=== PATIENT | female | born 1940 | race Caucasian/White ===

== ENCOUNTER 2019-03-20 12:46 | Emergency (ER) | payer MEDICARE, OTHER ==
[~2019-03-20] VITALS: Ht 162.5 cm; Wt 95.9 kg
[2019-03-20] MEDS ORDERED: DILT300C26 PO (13:15)
[2019-03-20] MEDS ORDERED: IRBE300T18 PO (13:15)
[2019-03-20] MEDS ORDERED: ERGO50006 PO (13:15)
[2019-03-20] MEDS ORDERED: CLON0.5T13 PO (13:15)
[2019-03-20] MEDS ORDERED: CLOP75TA28 PO (13:15)
[2019-03-20] MEDS ORDERED: ATOR80TA76 PO (13:15)
[2019-03-20] MEDS ORDERED: ALLO100T PO (13:15)
[2019-03-20] MEDS ORDERED: CALC0.253 PO (13:15)
[2019-03-20] MEDS ORDERED: FURO40TA4 PO (13:15)
[2019-03-20] MEDS ORDERED: NFNEB10T PO (13:15)
[2019-03-20] MEDS ORDERED: LORA10TA7 PO (13:15)
--- NOTE | 2019-03-20 13:18 | ED Cough/URI ---
General Chief Complaint: Respiratory Problems Stated Complaint: LOW O2 Source: patient Exam Limitations: no limitations History of Present Illness Date Seen by Provider: Mar 20, 2019 Time Seen by Provider: 13:16 Initial Comments Patient complains of nonproductive cough especially with exertion and wheezing over the past week. She went to the clinic today for checkup and was referred here because her oxygen saturations were in the 80s. Patient does were normal oxygen when necessary. No fevers or chills. Allergies and Home Medications Allergies Coded Allergies: No Known Drug Allergies (Unverified , 03/20/19) Patient Home Medication List Home Medication List Reviewed: Yes Review of Systems Review of Systems Constitutional: No fever; malaise Respiratory: cough, dyspnea on exertion, wheezing Cardiovascular: no symptoms reported Genitourinary: no symptoms reported Musculoskeletal: no symptoms reported Skin: no symptoms reported All Other Systems Reviewed Negative Unless Noted: Yes Past Ceikyza-Wecmck-Jckjzz Hx Patient Social History Recent Foreign Travel: No Physical Exam Vital Signs - First Documented 03/20/19 12:56 Temp 36.3 Pulse 82 Resp 24 B/P (MAP) 151/72 (98) Pulse Ox 91 O2 Delivery Room Air Capillary Refill : Height: '" Weight: lbs. oz. kg; BMI Method: General Appearance: WD/WN, no apparent distress Eyes: Bilateral Eye Normal Inspection, Bilateral Eye PERRL, Bilateral Eye EOMI HEENT: PERRL/EOMI, pharynx normal Neck: supple Respiratory: no respiratory distress, decreased breath sounds, rales, wheezing Cardiovascular: regular rate, rhythm Gastrointestinal: soft Extremities: normal inspection; No pedal edema Neurologic/Psychiatric: alert, normal mood/affect Skin: normal color, warm/dry Progress/Results/Core Measures Suspected Sepsis SIRS Temperature: Pulse: Respiratory Rate: Laboratory Tests 03/20/19 13:10: White Blood Count 7.7 Blood Pressure / Mean: Laboratory Tests 03/20/19 13:10: Creatinine 1.27, Platelet Count 187, Total Bilirubin 0.6 Results/Orders Lab Results Laboratory Tests Test 03/20/19 13:10 Range/Units White Blood Count 7.7 4.3-11.0 10^3/uL Red Blood Count 4.42 4.35-5.85 10^6/uL Hemoglobin 13.1 11.5-16.0 G/DL Hematocrit 40 35-52 % Mean Corpuscular Volume 91 80-99 FL Mean Corpuscular Hemoglobin 30 25-34 PG Mean Corpuscular Hemoglobin Concent 32 32-36 G/DL Red Cell Distribution Width 13.3 10.0-14.5 % Platelet Count 187 130-400 10^3/uL Mean Platelet Volume 10.2 7.4-10.4 FL Neutrophils (%) (Auto) 81 H 42-75 % Lymphocytes (%) (Auto) 13 12-44 % Monocytes (%) (Auto) 5 0-12 % Eosinophils (%) (Auto) 1 0-10 % Basophils (%) (Auto) 0 0-10 % Neutrophils # (Auto) 6.2 1.8-7.8 X 10^3 Lymphocytes # (Auto) 1.0 1.0-4.0 X 10^3 Monocytes # (Auto) 0.4 0.0-1.0 X 10^3 Eosinophils # (Auto) 0.1 0.0-0.3 10^3/uL Basophils # (Auto) 0.0 0.0-0.1 10^3/uL Sodium Level 142 135-145 MMOL/L Potassium Level 3.3 L 3.6-5.0 MMOL/L Chloride Level 103 98-107 MMOL/L Carbon Dioxide Level 24 21-32 MMOL/L Anion Gap 15 H 5-14 MMOL/L Blood Urea Nitrogen 15 7-18 MG/DL Creatinine 1.27 0.60-1.30 MG/DL Estimat Glomerular Filtration Rate 41 BUN/Creatinine Ratio 12 Glucose Level 157 H 70-105 MG/DL Calcium Level 9.4 8.5-10.1 MG/DL Corrected Calcium 9.6 8.5-10.1 MG/DL Total Bilirubin 0.6 0.1-1.0 MG/DL Aspartate Amino Transf (AST/SGOT) 14 5-34 U/L Alanine Aminotransferase (ALT/SGPT) 14 0-55 U/L Alkaline Phosphatase 148 H 40-136 U/L Troponin I < 0.30 <0.30 NG/ML Pro-B-Type Natriuretic Peptide 2948.0 H <75.0 PG/ML Total Protein 6.7 6.4-8.2 GM/DL Albumin 3.8 3.2-4.5 GM/DL My Orders Orders - CHRIS MITCHELL MD Cbc With Automated Diff (03/20/19 12:56) Comprehensive Metabolic Panel (03/20/19 12:56) Chest 1 View Ap/Pa Only (03/20/19 12:56) O2 (03/20/19 12:56) Monitor-Rhythm Ecg Trace Only (03/20/19 12:56) Probnp Fs (03/20/19 12:59) Troponin I Fs (03/20/19 12:59) Ekg Tracing (03/20/19 12:59) Albuterol/Ipra Inhalation Soln (Duoneb I (03/20/19 13:30) Svn Small Volume Nebulizer (03/20/19 13:18) Furosemide Injection (Lasix Injection) (03/20/19 14:00) Medications Given in ED Current Medications Medications Dose Ordered Sig/Angel Route Start Time Stop Time Status Last Admin Dose Admin Albuterol/ Ipratropium 3 ml ONCE ONCE INH 03/20/19 13:30 03/20/19 13:31 DC 03/20/19 13:33 3 ML Vital Signs/I&O 03/20/19 12:56 Temp 36.3 Pulse 82 Resp 24 B/P (MAP) 151/72 (98) Pulse Ox 91 O2 Delivery Room Air Capillary Refill : Departure Impression Primary Impression: Dyspnea Additional Impression: CHF exacerbation Disposition: 01 HOME, SELF-CARE Condition: Stable Departure-Patient Inst. Decision time for Depature: 13:56 Referrals: LISE CAREY MD (PCP) Primary Care Physician DENISHA RAO APRN (Family) Primary Care Physician Patient Instructions: CHF Add. Discharge Instructions: Increase Lasix to twice daily. Call your director of assessment today to arrange for follow-up appointment on Sunday. Return if symptoms worsen. Wear oxygen as needed for comfort. All discharge instructions reviewed with patient and/or family. Voiced understanding. CHRIS MITCHELL MD Mar 20, 2019 13:18 POS
[2019-03-20 13:19] LABS: HEMATOCRIT 40 % (35-52); HEMOGLOBIN 13.1 G/DL (11.5-16.0); MEAN CORPUSCULAR HEMOGLOBIN 30 PG (25-34); MEAN CORPUSCULAR VOLUME 91 FL (80-99); WHITE BLOOD COUNT 7.7 10^3/uL (4.3-11.0)
[2019-03-20 13:20] LABS: BASOPHILS % (AUTO) 0 % (0-10); EOSINOPHILS # (AUTO) 0.1 10^3/uL (0.0-0.3); EOSINOPHILS % (AUTO) 1 % (0-10); LYMPHOCYTES % (AUTO) 13 % (12-44); MEAN CORPUSCULAR HGB CONC 32 G/DL (32-36); MEAN PLATELET VOLUME 10.2 FL (7.4-10.4); MONOCYTES # (AUTO) 0.4 X 10^3 (0.0-1.0); MONOCYTES % (AUTO) 5 % (0-12); NEUTROPHILS # (AUTO) 6.2 X 10^3 (1.8-7.8); NEUTROPHILS % (AUTO) 81 % (42-75); PLATELET COUNT 187 10^3/uL (130-400); RED CELL DISTRIBUTION WIDTH 13.3 % (10.0-14.5)
--- NOTE | 2019-03-20 13:20 | Diagnostic Imaging Report ---
PATIENT HISTORY: Cough, hypoxia. TECHNIQUE: Frontal view of the chest. COMPARISON: None FINDINGS: There is mild cardiomegaly and mild central vascular congestion. Haziness of the lung bases is thought to be due to overlying soft tissue. No significant pleural effusion or pneumothorax is seen. No degenerative changes in the shoulders and spine. IMPRESSION: Mild cardiomegaly and central vascular congestion. Dictated by: Dictated on workstation # [id number]
[2019-03-20] MEDS ORDERED: RT-ALBUTEROL/IPRATROPIUM 3 ML (DUONEB) VIAL INH ONE (13:30)
[2019-03-20 13:45] LABS: ALANINE AMINOTRANSFERASE 14 U/L (0-55); ALKALINE PHOSPHATASE 148 U/L (40-136); BILIRUBIN,TOTAL 0.6 MG/DL (0.1-1.0); BUN/CREATININE RATIO 12; CALCIUM 9.4 MG/DL (8.5-10.1); CARBON DIOXIDE 24 MMOL/L (21-32); CHLORIDE 103 MMOL/L (98-107); CREATININE SERUM 1.27 MG/DL (0.60-1.30); GFR ESTIMATED 41; GLUCOSE 157 MG/DL (70-105); POTASSIUM 3.3 MMOL/L (3.6-5.0); SODIUM 142 MMOL/L (135-145); TOTAL PROTEIN 6.7 GM/DL (6.4-8.2)
[2019-03-20 13:46] LABS: ALBUMIN 3.8 GM/DL (3.2-4.5)
[2019-03-20] MEDS ORDERED: FUROSEMIDE 40 MG/4 ML INJ (LASIX) IVP ONE (14:00)
[2019-03-20 14:29] VITALS: BP 125/88
== END 2019-03-20 14:29 | disposition home or self-care (01) ==
LOC: ER FS 12:49
DX: I50.9 Heart failure, unspecified (principal)
CPT/HCPCS: 36415; 71045; 80053; 83880; 84484; 85025; 93005; 93041; 94640

== ENCOUNTER 2019-03-22 18:48 | Inpatient (IN) | payer MEDICARE, OTHER ==
[~2019-03-22] VITALS: Ht 162.5 cm; Wt 94.8 kg
[~2019-03-22 18:48] MED LIST: ALLO100T PO; ATOR80TA76 PO; CALC0.253 PO; CLON0.5T13 PO; CLOP75TA28 PO; DILT300C26 PO; ERGO50006 PO; FURO40TA4 PO; IRBE300T18 PO; LORA10TA7 PO; NFNEB10T PO
[2019-03-22] MEDS ORDERED: NS IV 1000 ML 1,000 ML IV SCH (18:57)
[2019-03-22] MEDS ORDERED: NS IV 500 ML 500 ML IV ONE (18:57)
[2019-03-22] MEDS ORDERED: AZITHROMYCIN INJECTION 500 MG in NS (IVPB) 250 ML IV ONE (19:00)
[2019-03-22] MEDS ORDERED: RT-ALBUTEROL/IPRATROPIUM 3 ML (DUONEB) VIAL INH ONE (19:00)
[2019-03-22] MEDS ORDERED: cefTRIAXone FOR IV USE 1,000 MG in WATER (STERILE) FOR INJECTION 10 ML IV ONE (19:00)
--- NOTE | 2019-03-22 19:08 | ED Respiratory ---
General Chief Complaint: Respiratory Problems Stated Complaint: SOB Nursing Triage Note: Patient reports increase in shortness of breath for 1 week, hx of COPD, seen in the ED here on , states shortness of breath has not improved. Source: patient, family Exam Limitations: no limitations History of Present Illness Date Seen by Provider: Mar 22, 2019 Time Seen by Provider: 18:51 Initial Comments Patient presents ER by private conveyance with chief complaint shortness of breath. His been going on for the past 2 or 3 days. She was doing fine up until around this afternoon when she started to get worse especially as laying down flat made her shortness of breath worse. She is a history of COPD dependent on oxygen. She follows with [facility] but does not have a car salter. She does follow with Dr. Thompson, cardiology for hypertension, carotid stenosis and history of TIA/CVA. She has an appointment coming NEXT week with Dr. Thompson. 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 She is not having any chest pain. She denies having history of heart attacks, coronary disease, stents, congestive heart failure. She denies any swelling in her hands or feet. She typically takes 20 mg Lasix daily however since seeing the ER physician she has been taking 20 twice a day Allergies and Home Medications Allergies Coded Allergies: No Known Drug Allergies (Unverified , 03/20/19) Patient Home Medication List Home Medication List Reviewed: Yes Review of Systems Review of Systems Constitutional: No chills, No diaphoresis, No fever; malaise EENTM: No hearing loss, No ear pain Respiratory: cough; No phlegm; short of breath, wheezing Cardiovascular: No chest pain, No edema Gastrointestinal: No abdominal pain, No constipation, No diarrhea Genitourinary: No discharge, No dysuria Musculoskeletal: No back pain, No joint pain Skin: No pruritus, No rash Psychiatric/Neurological: Denies Headache, Denies Numbness Past Ecyfymg-Mmgfkz-Eklrpf Hx Patient Social History Alcohol Use: Denies Use Recreational Drug Use: No Smoking Status: Current Everyday Smoker Type Used: Cigarettes 2nd Hand Smoke Exposure: No Recent Foreign Travel: No Contact w/Someone Who Travel: No Recent Infectious Disease Expo: No Recent Hopitalizations: No Seasonal Allergies Seasonal Allergies: Yes Past Medical History Surgeries: Yes Appendectomy, Coronary Stent, Gallbladder, Tonsillectomy Respiratory: Yes Sleep Apnea, COPD Currently Using CPAP: Yes Cardiac: Yes Chronic Edema/Swelling, Coronary Artery Disease, Heart Attack, Hypertension, Irregular Heartbeat Neurological: Yes Stroke Genitourinary: Yes Renal Failure Gastrointestinal: No Musculoskeletal: Yes Gout Endocrine: No HEENT: No Cancer: No Psychosocial: Yes Anxiety Integumentary: No Physical Exam Vital Signs - First Documented 03/22/19 03/22/19 18:59 19:02 Temp 37.2 Pulse 102 Resp 29 B/P (MAP) 160/72 (101) Pulse Ox 86 O2 Delivery Nasal Cannula O2 Flow Rate 3.00 Capillary Refill : Less Than 3 Seconds Height: '" Weight: lbs. oz. kg; 35.00 BMI Method: General Appearance: moderate distress, obese Eyes: Bilateral Eye Normal Inspection, Bilateral Eye PERRL, Bilateral Eye EOMI HEENT: PERRL/EOMI; No pharynx normal (oropharynx mucosa is dry) Neck: full range of motion, normal inspection Respiratory: respiratory distress (mild/moderate with oxygen sat of 88-92% and tachycardia of 102 105), accessory muscle use (mild), wheezing, expiration (prolonged expiratory phase) Cardiovascular: normal peripheral pulses, regular rate, rhythm, tachycardia (100-105) Gastrointestinal: normal bowel sounds, non tender Neurologic/Psychiatric: alert, oriented x 3, other (anxious affect) Skin: normal color, warm/dry Focused Exam Lactate Level 03/22/19 19:00: Lactic Acid Level 2.65*H Lactic Acid Level Laboratory Tests Test 03/22/19 19:00 Lactic Acid Level 2.65 MMOL/L (0.50-2.00) *H Progress/Results/Core Measures Suspected Sepsis Recent Fever Within 48 Hours: No Infection Criteria Present: None New/Unexplained Altered Menta: No Sepsis Screen: No Definite Risk SIRS Temperature: Pulse: 102 Respiratory Rate: 29 Laboratory Tests 03/22/19 19:00: White Blood Count 13.1H Blood Pressure 160 /72 Mean: 101 03/22/19 19:00: Lactic Acid Level 2.65*H Laboratory Tests 03/22/19 19:00: Creatinine 1.49H, INR Comment 0.9, Platelet Count 277, Total Bilirubin 0.6 Results/Orders Lab Results Laboratory Tests Test 03/22/19 19:00 03/22/19 20:05 Range/Units White Blood Count 13.1 H 4.3-11.0 10^3/uL Red Blood Count 4.63 4.35-5.85 10^6/uL Hemoglobin 13.9 11.5-16.0 G/DL Hematocrit 42 35-52 % Mean Corpuscular Volume 91 80-99 FL Mean Corpuscular Hemoglobin 30 25-34 PG Mean Corpuscular Hemoglobin Concent 33 32-36 G/DL Red Cell Distribution Width 13.3 10.0-14.5 % Platelet Count 277 130-400 10^3/uL Mean Platelet Volume 10.3 7.4-10.4 FL Neutrophils (%) (Auto) 84 H 42-75 % Lymphocytes (%) (Auto) 10 L 12-44 % Monocytes (%) (Auto) 6 0-12 % Eosinophils (%) (Auto) 0 0-10 % Basophils (%) (Auto) 0 0-10 % Neutrophils # (Auto) 10.9 H 1.8-7.8 X 10^3 Lymphocytes # (Auto) 1.2 1.0-4.0 X 10^3 Monocytes # (Auto) 0.8 0.0-1.0 X 10^3 Eosinophils # (Auto) 0.1 0.0-0.3 10^3/uL Basophils # (Auto) 0.0 0.0-0.1 10^3/uL Prothrombin Time 13.0 12.2-14.7 SEC INR Comment 0.9 0.8-1.4 Activated Partial Thromboplast Time 26 24-35 SEC Sodium Level 143 135-145 MMOL/L Potassium Level 3.2 L 3.6-5.0 MMOL/L Chloride Level 101 98-107 MMOL/L Carbon Dioxide Level 24 21-32 MMOL/L Anion Gap 18 H 5-14 MMOL/L Blood Urea Nitrogen 17 7-18 MG/DL Creatinine 1.49 H 0.60-1.30 MG/DL Estimat Glomerular Filtration Rate 34 BUN/Creatinine Ratio 11 Glucose Level 140 H 70-105 MG/DL Lactic Acid Level 2.65 *H 0.50-2.00 MMOL/L Calcium Level 9.6 8.5-10.1 MG/DL Corrected Calcium 9.6 8.5-10.1 MG/DL Total Bilirubin 0.6 0.1-1.0 MG/DL Aspartate Amino Transf (AST/SGOT) 13 5-34 U/L Alanine Aminotransferase (ALT/SGPT) 13 0-55 U/L Alkaline Phosphatase 148 H 40-136 U/L Troponin I < 0.30 <0.30 NG/ML Pro-B-Type Natriuretic Peptide 2205.0 H <75.0 PG/ML Total Protein 7.4 6.4-8.2 GM/DL Albumin 4.0 3.2-4.5 GM/DL Blood Gas Puncture Site LEFT RADIAL Blood Gas Patient Temperature 37.2 Arterial Blood pH 7.42 7.37-7.43 Arterial Blood Partial Pressure CO2 40 35-45 MMHG Arterial Blood Partial Pressure O2 66 L 79-93 MMHG Arterial Blood HCO3 26 23-27 MMOL/L Arterial Blood Total CO2 27.1 21.0-31.0 MMOL/L Arterial Blood Oxygen Saturation 93 L 94-100 % Arterial Blood Base Excess 1.3 -2.5-2.5 MMOL/L Xavier Test NEGATIVE Blood Gas Ventilator Setting NO Blood Gas Inspired Oxygen 2 Micro Results Microbiology 03/22/19 Influenza Types A,B Antigen (OZZY) - Final, Complete My Orders Orders - KADEN LIMA Cbc With Automated Diff (03/22/19 18:57) Comprehensive Metabolic Panel (03/22/19 18:57) Blood Culture (03/22/19 18:57) Sputum Culture (03/22/19 18:57) Urinalysis (03/22/19 18:57) Urine Culture (03/22/19 18:57) Protime With Inr (03/22/19 18:57) Partial Thromboplastin Time (03/22/19 18:57) Chest 1 View Ap/Pa Only (03/22/19 18:57) Ed Iv/Invasive Line Start (03/22/19 18:57) Ed Iv/Invasive Line Start (03/22/19 18:57) Ekg Tracing (03/22/19 18:57) Vital Signs Adult Sepsis Patie Q15M (03/22/19 18:57) O2 (03/22/19 18:57) Remove Rings In Anticipation O (03/22/19 18:57) Lactic Acid Analyzer (03/22/19 18:57) Influenza A And B Antigens (03/22/19 18:57) Ns Iv 1000 Ml (Sodium Chloride 0.9%) (03/22/19 18:57) Ceftriaxone For Iv Use (Rocephin For I (03/22/19 19:00) Azithromycin Injection (Zithromax Inject (03/22/19 19:00) Troponin I Fs (03/22/19 18:57) Probnp Fs (03/22/19 18:57) Ed Iv/Invasive Line Start (03/22/19 18:57) Ns Iv 500 Ml (Sodium Chloride 0.9%) (03/22/19 18:57) Albuterol/Ipra Inhalation Soln (Duoneb I (03/22/19 19:00) Svn Small Volume Nebulizer (03/22/19 18:57) Arterial Blood Gas (03/22/19 18:57) Albuterol Pre-Mix Nebs (Rt) (Proventil (03/22/19 20:08) Ipratropium 0.02% Neb Solution (Atrovent (03/22/19 20:15) Sodium Chl Inhalation (Rt-Sodium Chl Inh (03/22/19 20:15) Methylprednisolone Sod Succ (Solu-Medrol (03/22/19 20:30) Medications Given in ED Current Medications Medications Dose Ordered Sig/Angel Route Start Time Stop Time Status Last Admin Dose Admin Albuterol/ Ipratropium 3 ml ONCE ONCE INH 03/22/19 19:00 03/22/19 19:04 DC 03/22/19 19:14 3 ML Azithromycin 500 mg/Sodium Chloride 250 ml @ 250 mls/hr ONCE ONCE IV 03/22/19 19:00 03/22/19 19:59 DC 03/22/19 20:01 250 MLS/HR Ceftriaxone Sodium 1000 mg/ Sterile Water 10 ml @ 200 mls/hr ONCE ONCE IV 03/22/19 19:00 03/22/19 19:02 DC 03/22/19 20:00 200 MLS/HR Ipratropium [place] 0.5 mg ONCE ONCE IH 03/22/19 20:15 03/22/19 20:16 DC 03/22/19 20:19 0.5 MG Sodium Chloride 3 ml ONCE ONCE IH 03/22/19 20:15 03/22/19 20:16 DC 03/22/19 20:19 3 ML Vital Signs/I&O 03/22/19 03/22/19 18:59 19:02 Temp 37.2 Pulse 102 Resp 29 B/P (MAP) 160/72 (101) Pulse Ox 86 93 O2 Delivery Nasal Cannula Nasal Cannula O2 Flow Rate 3.00 Capillary Refill : Less Than 3 Seconds Blood Pressure Mean: 101 POS Progress Note #1: Time: 19:06 Progress Note She appears as though she is having a COPD exacerbation. We'll obtain x-ray labs ABG and initiate a septic workup for potential pneumonia. DuoNeb. Plan to get EKG troponin and BNP. Initial EKG unremarkable. X-ray from 2 days ago demonstrated some mild central vascular congestion. Her BNP was 2900 and she had been ordered to double her Lasix. Otherwise her labs were unremarkable 2 days ago. Unknown what her baseline BNP is. We'll hold off on IV fluids until we see a BNP and chest x-ray today. Progress Note #2: Time: 20:07 Progress Note Patient says she has some subjective relief after the breathing treatment however she still has quite a bit of wheezing. No crackles or rhonchi.. Plan to let her have a liter of fluids but not to 1500 cc. Her BMP has come down to 2200 from 2900 and would like to avoid pulmonary edema. Her heart rate has been in the 80s and 90s at rest. Oxygen sats of been in the low 90s below 94% on 2 L. Plan to give her an hour-long breathing treatment and find her placement in the hospital. ECG Initial ECG Impression Date: Mar 22, 2019 Initial ECG Impression Time: 18:58 Initial ECG Rate: 89 Initial ECG Rhythm: Normal Sinus Initial ECG Intervals: QT (482) Initial ECG Impression: Normal, Nonspecific Changes Comment No clinically relevant S elevation or depression. Borderline prolonged QT axis Diagnostic Imaging Diagonstic Imaging: Xray Plain Films/CT/US/NM/MRI: chest (1v) Comments No appreciable infiltrate. NAME: TAMERA KRAMER [facility] REC#: [id number] PT STATUS: REG ER : 1940 PHYSICIAN: KADEN LIMA MD ADMIT DATE: 03/22/19/ER FS Signed POSDate of Exam:03/22/19 CHEST 1 VIEW AP/PA ONLY EXAMINATION: Chest 1 view HISTORY: Shortness of breath FINDINGS: Comparison is 03/20/2019. There is mild enlargement of the heart. Left retrocardiac opacity is increased from prior exam. No pneumothorax is seen. There is mild base atelectasis. IMPRESSION: 1. Mild bibasilar atelectasis, increased from prior exam. Dictated by: Dictated on workstation # [id number] Dict: 03/22/191945 Trans: 03/22/191953 [facility] [id number] Interpreted by: SOHAIL QUARLES MD Electronically signed by: SOHAIL QUARLES MD 03/22/191953 Reviewed: Reviewed by Me Departure Communication (Admissions) Time/Spoke to Admitting Phy: 20:20 Discussed the case lab imaging EKG with Dr. Rose and she agrees to admit the patient to cardiac stepdown with consults to Dr. Leong, cardiology and Dr. Day, pulmonology. She would like Solu-Medrol 40 mg IV every 6 hours. She agrees with antibiotic selection. Time/Spoke to Consulting Phy: 20:[address] Day, pulmonology and he agrees to consult on the case. Discussed the case with Dr. Leong, cardiology and he agrees to consult on the case. Impression Primary Impression: COPD with exacerbation Additional Impressions: Hypoxia Pneumonia Qualified Codes: J18.9 - Pneumonia, unspecified organism Disposition: ADMITTED INPATIENT Condition: Stable Admissions Decision to Admit Reason: Admit from ER (General) Decision to Admit/Date: Mar 22, 2019 Time/Decision to Admit Time: 20:15 Departure-Patient Inst. Referrals: LISE CAREY MD (PCP) Primary Care Physician DENISHA RAO APRN (Family) Primary Care Physician KADEN LIMA Mar 22, 2019 19:08 POS
[2019-03-22 19:11] LABS: HEMATOCRIT 42 % (35-52); HEMOGLOBIN 13.9 G/DL (11.5-16.0); MEAN CORPUSCULAR HEMOGLOBIN 30 PG (25-34); MEAN CORPUSCULAR VOLUME 91 FL (80-99); WHITE BLOOD COUNT 13.1 10^3/uL (4.3-11.0)
[2019-03-22 19:12] LABS: BASOPHILS % (AUTO) 0 % (0-10); EOSINOPHILS # (AUTO) 0.1 10^3/uL (0.0-0.3); EOSINOPHILS % (AUTO) 0 % (0-10); LYMPHOCYTES # (AUTO) 1.2 X 10^3 (1.0-4.0); LYMPHOCYTES % (AUTO) 10 % (12-44); MEAN CORPUSCULAR HGB CONC 33 G/DL (32-36); MEAN PLATELET VOLUME 10.3 FL (7.4-10.4); MONOCYTES # (AUTO) 0.8 X 10^3 (0.0-1.0); MONOCYTES % (AUTO) 6 % (0-12); NEUTROPHILS # (AUTO) 10.9 X 10^3 (1.8-7.8); NEUTROPHILS % (AUTO) 84 % (42-75); PLATELET COUNT 277 10^3/uL (130-400); RED CELL DISTRIBUTION WIDTH 13.3 % (10.0-14.5)
[2019-03-22 19:28] LABS: INR 0.9 (0.8-1.4)
[2019-03-22 19:36] LABS: SODIUM 143 MMOL/L (135-145)
[2019-03-22 19:37] LABS: ALANINE AMINOTRANSFERASE 13 U/L (0-55); ALKALINE PHOSPHATASE 148 U/L (40-136); BILIRUBIN,TOTAL 0.6 MG/DL (0.1-1.0); BUN/CREATININE RATIO 11; CALCIUM 9.6 MG/DL (8.5-10.1); CARBON DIOXIDE 24 MMOL/L (21-32); CHLORIDE 101 MMOL/L (98-107); CREATININE SERUM 1.49 MG/DL (0.60-1.30); GFR ESTIMATED 34; GLUCOSE 140 MG/DL (70-105); POTASSIUM 3.2 MMOL/L (3.6-5.0); TOTAL PROTEIN 7.4 GM/DL (6.4-8.2)
--- NOTE | 2019-03-22 19:54 | Diagnostic Imaging Report ---
EXAMINATION: Chest 1 view HISTORY: Shortness of breath FINDINGS: Comparison is 03/20/2019. There is mild enlargement of the heart. Left retrocardiac opacity is increased from prior exam. No pneumothorax is seen. There is mild base atelectasis. IMPRESSION: 1. Mild bibasilar atelectasis, increased from prior exam. Dictated by: Dictated on workstation # [id number]
[2019-03-22] MEDS ORDERED: RT-ALBUTEROL SULF 2.5 MG/3 ML PRE-MIX VIAL INH STA (20:08)
[2019-03-22 20:09] LABS: ABG BASE EXCESS 1.3 MMOL/L (-2.5-2.5); ABG OXYGEN SATURATION 93 % (94-100); ABG PCO2 40 MMHG (35-45); ABG PH 7.42 (7.37-7.43); ABG PO2 66 MMHG (79-93); ABG TCO2 27.1 MMOL/L (21.0-31.0)
[2019-03-22 20:10] LABS: INSPIRED O2 2; VENTILATOR NO
[2019-03-22 20:12] LABS: PATIENT TEMP 37.2
[2019-03-22 20:13] LABS: ALLENS TEST NEGATIVE
[2019-03-22] MEDS ORDERED: RT-IPRATROPIUM (ATROVENT) 0.5MG/2.5ML AMP IH ONE (20:15)
[2019-03-22] MEDS ORDERED: RT-SODIUM CHL INHALATION 3 ML VIAL IH ONE (20:15)
[2019-03-22] MEDS ORDERED: methylPREDNISolone 40 MG/ML (Solu-MEDROL) VIAL IV ONE (20:30)
--- NOTE | 2019-03-22 22:20 | NUR ---
TAMERA KRAMER admitted to room 509-1, with an admitting diagnosis of ,COPD EXACERBATION, on 03/22/19 from [place] [facility] via , accompanied by .TAMERA KRAMER introduced to surroundings, call light, bed controls, phone, TV, temperature control, lights, meal times, smoking policy, visitor policy, side rail policy, bathrooms and showers. Patient Rights given to patient in the handbook.TAMERA KRAMER verbalizes understanding that [facility] is not responsible for the loss or damage to any personal effects or valuables that are kept in the patients posession during their hospitalization. The following Patient Care Plans were discussed with the : Discharge Planning, ,, and .
[2019-03-22 22:30] VITALS: BP 105/66
[2019-03-22] MEDS ORDERED: LACTATED RINGERS 1,000 ML IV SCH (22:45)
[2019-03-22] MEDS ORDERED: AZITHROMYCIN INJECTION 500 MG in NS (IVPB) 250 ML IV SCH (22:45)
[2019-03-22] MEDS ORDERED: ONDANSETRON 4 MG/2 ML (SDV) Z0FRAN IV PRN (22:45)
[2019-03-22 23:01] VITALS: BP 105/66
[2019-03-23] VITALS (7 sets, daily range): BP systolic 115–175; BP diastolic 62–92
--- NOTE | 2019-03-23 01:48 | NUR ---
NOTIFIED DR CHAVIRA OF PT HAVING INCREASED WET COUGH, BREATH SOUNDS INCREASED COARSE/CRACKLES. REQUIRING 6L O2. SEE ORDER HX
[2019-03-23 03:05] LABS: BASOPHILS % (AUTO) 0 % (0-10); EOSINOPHILS % (AUTO) 0 % (0-10); HEMATOCRIT 36 % (35-52); HEMOGLOBIN 11.7 G/DL (11.5-16.0); LYMPHOCYTES # (AUTO) 0.5 X 10^3 (1.0-4.0); LYMPHOCYTES % (AUTO) 6 % (12-44); MEAN CORPUSCULAR HGB CONC 33 G/DL (32-36); MEAN CORPUSCULAR VOLUME 91 FL (80-99); MEAN PLATELET VOLUME 10.5 FL (7.4-10.4); MONOCYTES # (AUTO) 0.1 X 10^3 (0.0-1.0); MONOCYTES % (AUTO) 2 % (0-12); NEUTROPHILS # (AUTO) 7.9 X 10^3 (1.8-7.8); NEUTROPHILS % (AUTO) 93 % (42-75); PLATELET COUNT 172 10^3/uL (130-400); RED CELL DISTRIBUTION WIDTH 13.6 % (10.0-14.5); WHITE BLOOD COUNT 8.5 10^3/uL (4.3-11.0)
[2019-03-23] MEDS: ACETAMINOPHEN 500 MG TAB (TYLENOL) PO PRN ×3 (03:09→17:46)
[2019-03-23] MEDS: methylPREDNISolone 40 MG/ML (Solu-MEDROL) VIAL IV SCH ×4 (03:09→21:06)
[2019-03-23 03:11] LABS: MEAN CORPUSCULAR HEMOGLOBIN 29 PG (25-34)
[2019-03-23] MEDS ORDERED: RT-ALBUTEROL/IPRATROPIUM 3 ML (DUONEB) VIAL ONE ×2 (03:15→06:56)
[2019-03-23 03:26] LABS: ALBUMIN 3.5 GM/DL (3.2-4.5); BILIRUBIN,TOTAL 0.4 MG/DL (0.1-1.0); CREATININE SERUM 1.79 MG/DL (0.60-1.30); TOTAL PROTEIN 6.3 GM/DL (6.4-8.2)
[2019-03-23 06:13] LABS: MAGNESIUM 1.6 MG/DL (1.6-2.4); PHOSPHORUS 3.1 MG/DL (2.3-4.7)
--- NOTE | 2019-03-23 06:14 | NUR ---
UPDATED DAUGHTER ON PT CONDITION
--- NOTE | 2019-03-23 06:22 | Pulmonary Consultation ---
History of Present Illness History of Present Illness Date of Consultation 03/23/19 06:17 Time Seen by Provider: 06:17 Date of Admission History of Present Illness 78yo with hx of RALF with obesity, TIA, oxygen dependent COPD presented to ED secondary to worsening SOB, and coughing over the last 3days. She has had similar prior episodes. Denies CP F/NS/C No abdominal pain N/V. I am consulted for pulmonary management. Allergies and Home Medications Allergies Coded Allergies: No Known Drug Allergies (Unverified , 03/20/19) Home Medications Allopurinol 100 Mg Tablet, 100 MG PO DAILY, (Reported) Atorvastatin Calcium 80 Mg Tablet, 80 MG PO HS, (Reported) Calcitriol 0.25 Mcg Capsule, 0.25 MCG PO MoFr, (Reported) Clonazepam 0.5 Mg Tablet, 0.5 MG PO DAILY PRN for ANXIETY, (Reported) Clopidogrel Bisulfate 75 Mg Tablet, 75 MG PO DAILY, (Reported) Diltiazem HCl 300 Mg Cap.er.24h, 300 MG PO HS, (Reported) Furosemide 40 Mg Tablet, 40 MG PO DAILY, (Reported) Irbesartan 300 Mg Tablet, 300 MG PO DAILY, (Reported) Loratadine 10 Mg Tablet, 10 MG PO DAILY, (Reported) Nebivolol HCl 10 Mg Tab, 10 MG PO HS, (Reported) Past Pnsrtji-Jgixje-Xiyxlt Hx Patient Social History Alcohol Use: Denies Use Recreational Drug Use: No Smoking Status: Current Everyday Smoker Type Used: Cigarettes 2nd Hand Smoke Exposure: No Recent Foreign Travel: No Contact w/Someone Who Travel: No Recent Infectious Disease Expo: No Recent Hopitalizations: No Physical Abuse: No Sexual Abuse: No Mistreated: No Fear: No Seasonal Allergies Seasonal Allergies: Yes Past Medical History Surgeries: Yes Appendectomy, Coronary Stent, Gallbladder, Tonsillectomy Respiratory: Yes Sleep Apnea, COPD Currently Using CPAP: Yes Cardiac: Yes Chronic Edema/Swelling, Coronary Artery Disease, Heart Attack, Hypertension, Irregular Heartbeat Neurological: Yes Stroke Genitourinary: Yes Renal Failure Gastrointestinal: No Musculoskeletal: Yes Gout Endocrine: No HEENT: No Cancer: No Psychosocial: Yes Anxiety Integumentary: No Review of Systems Time Seen by Provider: 06:24 Constitutional: Sweats, Weakness, Malaise; No: Fever, Chills Eyes: No: Pain, Vision change, Conjunctivae inflammation, Eyelid inflammation, Other, Redness ENT: Nose congestion; No: Ear pain, Ear discharge, Nose pain, Nose discharge, Mouth pain, Mouth swelling, Throat pain, Throat swelling, Other Respiratory: Shortness of breath, SOB with excertion, Wheezing, Sputum; No: Hemoptysis, Pleuritic Pain Cardiovascular: Palpitations, Orthopnea, Paroxysmal Noc. Dyspnea; No: Lt Headedness Gastrointestinal: Constipation; No: Nausea, Vomiting, Abdominal Pain, Diarrhea, Melena, Hematochezia, Other Sepsis Event Evaluation Height, Weight, BMI Height: '" Weight: lbs. oz. kg; 35.90 BMI Method: Exam Exam Vital Signs Date Time Temp Pulse Resp B/P (MAP) Pulse Ox O2 Delivery O2 Flow Rate FiO2 03/23/19 04:10 36.9 83 21 123/66 (85) 94 NIV CPAP 40.00 03/23/19 04:00 NIV CPAP 40 03/23/19 03:11 NIV CPAP 40.00 03/23/19 03:00 96 23 94 40.00 03/23/19 01:31 37.3 96 96 44 03/23/19 01:10 37.3 96 20 126/62 (83) 96 Nasal Cannula 6.00 03/23/19 01:00 95 03/23/19 00:00 Nasal Cannula 6.00 03/22/19 23:06 96 Nasal Cannula 6.00 03/22/19 23:01 36.9 110 22 105/66 96 Nasal Cannula 6.00 6.00 03/22/19 22:54 109 03/22/19 22:30 110 22 105/66 (79) 96 Nasal Cannula 6.00 03/22/19 22:30 Nasal Cannula 6.00 03/22/19 22:30 36.9 03/22/19 21:35 36.9 105 22 116/59 96 Simple Mask 6.00 03/22/19 19:02 93 Nasal Cannula 3.00 03/22/19 18:59 37.2 102 29 160/72 (101) 86 Nasal Cannula I & O0 03/23/19 07:00 Intake Total 1010 ml Balance 1010 ml Height & Weight Height: '" Weight: lbs. oz. kg; 35.90 BMI Method: General Appearance: No Apparent Distress, WD/WN, Obese, Other (currently on CPAP ) HEENT: PERRL/EOMI, Pharynx Normal Neck: Full Range of Motion, Non Tender, Supple Respiratory: Chest Non Tender, No Accessory Muscle Use, No Respiratory Distress, Crackles, Decreased Breath Sounds, Wheezing Cardiovascular: Regular Rate, Rhythm, No Edema, No Murmur Capillary Refill: Less Than 3 Seconds Gastrointestinal: normal bowel sounds, non tender Extremity: Normal Capillary Refill, Normal Inspection, No Pedal Edema Neurologic/Psychiatric: Alert, Oriented x3 Skin: Normal Color, Warm/Dry Lymphatic: No Adenopathy Results Lab Laboratory Tests 03/22/19 19:00 03/23/19 02:15 Assessment/Plan Assessment/Plan COPDAE -Duonebs Q4 -oxygen -Start solumedrol 40Q 6 -Check CT of chest without contrast -Check echocardiogram and BNP -Will plan for out pt PFT Pneumonia -Continue Rocephin and azithromycin RALF with obesity -Will need home CPAP download ROBERTO KILGORE DO Mar 23, 2019 06:22 POS
--- NOTE | 2019-03-23 06:33 | NUR ---
pt has not urinated all night. this rn attempted to have pt sit on toilet to try urinating. pt refused and said she "didn't have to go and does not usually pee at night." dr arana aware of no urine output
[2019-03-23] MEDS ORDERED: FLU QUADRIvalent (5+ YOA) 2019-2020 (AFLURIA) 0.5 ML IM ONE (07:15)
[2019-03-23] MEDS ORDERED: KCL 20 MEQ TAB (K-DUR) PO ONE (09:00)
[2019-03-23] MEDS: AZITHROMYCIN 250 MG TAB (ZITHROMAX) PO SCH (09:11)
--- NOTE | 2019-03-23 09:30 | Diagnostic Imaging Report ---
PROCEDURE: CT chest without contrast. TECHNIQUE: Multiple contiguous axial images were obtained through the chest without the use of intravenous contrast. Auto Exposure Controls were utilized during the CT exam to meet ALARA standards for radiation dose reduction. INDICATION: Shortness of breath, pneumonia versus CHF EXAMINATION: CT chest without contrast 03/23/2019 Correlation made to radiographs from 03/22/2019 FINDINGS: There are scattered airspace opacities in the left lower lobe posteriorly and also within the left mid lung laterally. These findings could be due to focal atelectasis versus infiltrate/pneumonia. Within the remaining lungs, chronic interstitial changes are seen. There is bibasilar dependent atelectasis. In the right upper lobe multiple scattered calcifications are noted most likely due to old granulomatous disease. Calcified granulomata in the left lung apex also noted. There are multiple calcified lymph nodes within the mediastinum and bilateral hilar regions. There are calcifications throughout the trachea and its branches. No pneumothorax is seen. There are no significant pleural effusions. There is a small pericardial effusion. Cardiomegaly noted. Atherosclerotic disease is seen along the aorta. There are multiple enlarged lymph nodes throughout the mediastinum. Rather large conglomerate of lymphadenopathy seen in the subcarinal region measuring at least 4.7 cm in greatest dimension. A few prominent bilateral hilar lymph nodes also seen. The osseous structures demonstrate diffuse multilevel degenerative findings throughout the spine. Visualized upper abdominal structures demonstrate anterior abdominal wall hernia containing loops of bowel incompletely imaged. There is evidence of old granulomas disease throughout the spleen. IMPRESSION: 1. Scattered airspace opacities in the left lung most likely due to pneumonia and follow-up is recommended to ensure complete resolution and exclude underlying lesions. 2. Diffuse mediastinal and perihilar adenopathy. This is possibly reactive. However, this should also be followed to assure resolution and exclude a metastatic process or lymphoma. 3. Evidence of old granulomatous disease, small pericardial effusion and findings within the upper abdomen as discussed above. Dictated by: Dictated on workstation # [id number]
[2019-03-23] MEDS: RT-ALBUTEROL/IPRATROPIUM 3 ML (DUONEB) VIAL INH SCH ×4 (10:17→23:00)
--- NOTE | 2019-03-23 10:35 | Consultation-Cardiology ---
HPI-Cardiology Cardiology Consultation: Date of Consultation 03/23/19 Time Seen by a Provider: 10:30 Date of Admission 03/22/19 Attending Physician Leonor Rose DO Admitting Physician Michelle Asher MD Consulting Physician KARINE ALEXIS MD, MA, FACP, FACC, FSCAI, CCDS HPI: Chief Complaint: CC: Shortness of breath HPI 78 yo woman admitted by Dr Rose to her service for treatment of shortness of breath. We have been asked to see in cardiac evaluation. She has been feeling more short of breath than usual for 2 weeks. She has had an intermittent dry cough. She has had malaise, but she does not know if she has goldberg d fevers. She denies chest discomfort. She denies palp or syncope. She has chronic, intermittent leg swelling. Review of Systems-Cardiology Review of Systems Constitutional: malaise, tiredness; No weight loss Eyes: No vision change Ears/Nose/Throat: No ear discharge, No nasal drainage, No recent hearing loss Respiratory: As described under HPI Cardiovascular: As described under HPI Gastrointestinal: No diarrhea, No nausea, No vomiting Genitourinary: No dysuria, No hematuria, No urine frequency changes Musculoskeletal: No back pain, No joint pain Skin: No rash, No ulcerations Psychiatric/Neurological: No seizure, No focal weakness, No syncope Hematologic: No bleeding abnormalities MRA-[id number]-[id number] Hx Patient Social History Alcohol Use: Denies Use Recreational Drug Use: No Smoking Status: Current Everyday Smoker Type Used: Cigarettes 2nd Hand Smoke Exposure: No Recent Foreign Travel: No Recent Infectious Disease Expo: No Hospitalization with Isolation: Denies Past Medical History PMH As described under Assessment. Family Medical History Family Medical History: Father had NM when he was in his 60s Allergies and Home Medications Allergies Coded Allergies: No Known Drug Allergies (Unverified , 03/20/19) Patient Home Medication List Home Medication List Reviewed: Yes Physical Exam-Cardiology Physical Exam Vital Signs/I&O 03/22/19 03/22/19 03/22/19 03/23/19 22:54 23:01 23:06 00:00 Temp 36.9 Pulse 109 110 Resp 22 B/P (MAP) 105/66 Pulse Ox 96 96 O2 Delivery Nasal Cannula Nasal Cannula Nasal Cannula O2 Flow Rate 6.00 6.00 6.00 6.00 11/303/23/19 03/23/19 03/23/19 01:00 01:10 01:31 03:00 Temp 37.3 37.3 Pulse 95 96 96 96 Resp 20 23 B/P (MAP) 126/62 (83) Pulse Ox 96 96 94 O2 Delivery Nasal Cannula O2 Flow Rate 6.00 40.00 FiO2 44 03/23/19 03/23/19 03/23/19 03/23/19 03:11 04:00 04:10 06:45 Temp 36.9 Pulse 83 Resp 21 B/P (MAP) 123/66 (85) Pulse Ox 94 94 O2 Delivery NIV CPAP NIV CPAP NIV CPAP Nasal Cannula O2 Flow Rate 40.00 40.00 4.00 FiO2 40 03/23/19 03/23/19 03/23/19 03/23/19 07:00 08:00 08:00 09:00 Temp 36.1 Pulse 83 78 Resp 20 B/P (MAP) 115/65 (82) Pulse Ox 94 98 O2 Delivery Nasal Cannula Nasal Cannula Nasal Cannula O2 Flow Rate 4.00 4.00 4.00 03/23/19 10:17 Pulse Ox 92 O2 Delivery Nasal Cannula O2 Flow Rate 2.00 03/23/19 00:00 Intake Total 1010 ml Balance 1010 ml Capillary Refill : Less Than 3 Seconds Constitutional: AAO x 3, well-developed, well-nourished HEENT: PERRL, other (edentulous jaws, wearing dentures), EOMI, hearing is well preserved Neck: carotid pulses are 2 + bilaterally, with good upstrokes Respiratory: No accessory muscle use; other (fair air entry, prolonged exp, expiratory wheezes) Cardiovascular: regular rate-rhythm, S1 and S2, systolic murmur (faint CRISTIANO at c jo base) Gastrointestinal: No tender; soft; No guarding, No rebound; audible bowel sounds, other (reducible, ventral abdominal hernia w/o any physical signs of obstruction/incarceration at time of this exam) Extremities: No clubbing, No cyanosis, No significant edema Neurologic/Psychiatric: oriented x 3, other (moves all limbs equally) Data Review Labs Laboratory Tests 03/22/19 19:00: White Blood Count 13.1H, Red Blood Count 4.63, Hemoglobin 13.9, Hematocrit 42, Mean Corpuscular Volume 91, Mean Corpuscular Hemoglobin 30, Mean Corpuscular Hemoglobin Concent 33, Red Cell Distribution Width 13.3, Platelet Count 277, Mean Platelet Volume 10.3, Neutrophils (%) (Auto) 84H, Lymphocytes (%) (Auto) 10L, Monocytes (%) (Auto) 6, Eosinophils (%) (Auto) 0, Basophils (%) (Auto) 0, Neutrophils # (Auto) 10.9H, Lymphocytes # (Auto) 1.2, Monocytes # (Auto) 0.8, Eosinophils # (Auto) 0.1, Basophils # (Auto) 0.0, Prothrombin Time 13.0, INR Comment 0.9, Activated Partial Thromboplast Time 26, Sodium Level 143, Potassium Level 3.2L, Chloride Level 101, Carbon Dioxide Level 24, Anion Gap 18H, Blood Urea Nitrogen 17, Creatinine 1.49H, Estimat Glomerular Filtration Rate 34, BUN/Creatinine Ratio 11, Glucose Level 140H, Lactic Acid Level 2.65*H, Calcium Level 9.6, Corrected Calcium 9.6, Total Bilirubin 0.6, Aspartate Amino Transf (AST/SGOT) 13, Alanine Aminotransferase (ALT/SGPT) 13, Alkaline Phosphatase 148H , Troponin I < 0.30, Pro-B-Type Natriuretic Peptide 2205.0H, Total Protein 7.4, Albumin 4.0 03/22/19 20:05: Blood Gas Puncture Site LEFT RADIAL, Blood Gas Patient Temperature 37.2, Arterial Blood pH 7.42, Arterial Blood Partial Pressure CO2 40, Arterial Blood Partial Pressure O2 66L, Arterial Blood HCO3 26, Arterial Blood Total CO2 27.1, Arterial Blood Oxygen Saturation 93L, Arterial Blood Base Excess 1.3, Xavier Test NEGATIVE, Blood Gas Ventilator Setting NO, Blood Gas Inspired Oxygen 2 03/22/19 21:00: Lactic Acid Level 1.48 03/23/19 02:15: White Blood Count 8.5, Red Blood Count 3.97L, Hemoglobin 11.7, Hematocrit 36, Mean Corpuscular Volume 91, Mean Corpuscular Hemoglobin 29, Mean Corpuscular Hemoglobin Concent 33, Red Cell Distribution Width 13.6, Platelet Count 172, Mean Platelet Volume 10.5H, Neutrophils (%) (Auto) 93H, Lymphocytes (%) (Auto) 6L, Monocytes (%) (Auto) 2, Eosinophils (%) (Auto) 0, Basophils (%) (Auto) 0, Neutrophils # (Auto) 7.9H, Lymphocytes # (Auto) 0.5L, Monocytes # (Auto) 0.1, Eosinophils # (Auto) 0.0, Basophils # (Auto) 0.0, Sodium Level 140, Potassium Level 3.0L, Chloride Level 105, Carbon Dioxide Level 20L, Anion Gap 15H, Blood Urea Nitrogen 27H, Creatinine 1.79H, Estimat Glomerular Filtration Rate 27, BUN/Creatinine Ratio 15, Glucose Level 197H, Calcium Level 9.0, Corrected Calcium 9.4, Total Bilirubin 0.4, Aspartate Amino Transf (AST/SGOT) 12, Alanine Aminotransferase (ALT/SGPT) 13, Alkaline Phosphatase 117, Total Protein 6.3L, Albumin 3.5, Phosphorus Level 3.1, Magnesium Level 1.6, B-Type Natriuretic Peptide 178.5H Microbiology 03/22/19 Influenza Types A,B Antigen (OZZY) - Final, Complete Laboratory Tests 03/22/19 19:00 03/23/19 02:15 A/P-Cardiology Assessment/Admission Diagnosis Shortness of breath likely due to ac exac of COPD due to lower resp tract infection CAD. H/o [address] Thompson at [facility] in or around 2009 Hypertension, by history Hyperlipidemia, by history Chronic tobacco use (approx 40 pack-years) that she quit in mid-Feb 2019 Ventral abdominal hernia Carotid arterial disease. S/p R CEA in [place], [place]. Pt does not recall surgeon or year of surgery Discussion and Recomendations * Echo to eval LV and valve function * Try to obtain previous cardiac records * MPI to eval for cor ischemia * Advised to continue to refrain from smoking * Treat with ASA and statin and bb (for cardiac issues) * Other management is with Dr Rose * I discussed cardiac risk factor mod with Ms Callejas in detail Clinical Quality Measures DVT/VTE Risk/Contraindication: Risk Factor Score Per Nursin RFS Level Per Nursing on Admit: 4+=Very High KARINE ALEXIS MD FACP FAC CCDS Mar 23, 2019 10:35 POS
[2019-03-23] MEDS ORDERED: REGADENOSON 0.4 MG/5 ML SYR (LEXISCAN) IV ONE (11:00)
[2019-03-23] MEDS ORDERED: ASPIRIN 81 MG CHEW (CHILDREN'S ASA) PO ONE (11:00)
[2019-03-23] MEDS ORDERED: methylPREDNISolone 40 MG/ML (Solu-MEDROL) VIAL IV SCH (12:00)
[2019-03-23] MEDS: FAMOTIDINE 20 MG (PEPCID) TABLET PO SCH (12:27)
--- NOTE | 2019-03-23 13:38 | History & Physical-Hospitalist ---
History of Present Illness HPI/Chief Complaint Chief complaint: Hypoxia with dyspnea History of present illness: This is a 78-year-old white female clinic patient of Bethany Cuadra and Dr. Asher who presented to [facility] for complaints of shortness of breath with findings consistent with volume overload and an infiltrate on chest x-ray. Patient has not been hospitalized recently so she was placed on Rocephin and Zithromax along with nebulizer treatments and IV steroids along with oxygen supplementation. Cardiology has been consulted for elevated BNP and will perform a stress test tomorrow. She does see nephrology in [place] on a regular basis. Patient will be placed on gentle IV fluids to optimize creatinine in case cardiac catheterization is required of which she has had to in the past. She appears to be very debilitated and lives with her daughter and granddaughter. She usually wears oxygen at night and as needed but she has been using her oxygen during the day the last couple of days. PT and OT will be ordered due to significant debility. She continues to smoke of which she says she is stopping now. Source: patient, family, RN/MD, old records Exam Limitations: no limitations Date Seen 03/23/19 Time Seen by a Provider: 13:30 Attending Physician Leonor Chavira Katrina M MD Referring Physician Date of Admission Mar 22, 2019 at 20:49 Home Medications & Allergies Home Medications Reviewed patient Home Medication Reconciliation performed by pharmacy medication reconciliations pool technician and/or nursing. Patients Allergies have been reviewed. Allergies Allergies Coded Allergies No Known Drug Allergies (Pszerdziri95/31/19) Past Psakpsi-Tavbxq-Rwznoh Hx Past Med/Social Hx: Reviewed Nursing Past Med/Soc Hx, Reviewed and Corrections made Patient Social History Marrital Status: single Employed/Student: retired Alcohol Use: Denies Use Recreational Drug Use: No Smoking Status: Current Everyday Smoker Type Used: Cigarettes 2nd Hand Smoke Exposure: No Recent Foreign Travel: No Contact w/other who traveled: No Recent Hopitalizations: No Recent Infectious Disease Expo: No Seasonal Allergies Seasonal Allergies: Yes Past Medical History Surgeries: Appendectomy, Coronary Stent, Gallbladder, Tonsillectomy Respiratory: COPD, Pneumonia Currently Using CPAP: Yes Cardiac: Chronic Edema/Swelling, Coronary Artery Disease, Heart Attack, Hypertension, Irregular Heartbeat Neurological: Neuropathy, Stroke Genitourinary: Renal Failure Musculoskeletal: Gout Psychosocial: Anxiety Review of Systems Constitutional: see HPI, malaise, weakness Respiratory: dyspnea on exertion Cardiovascular: palpitations Psychiatric/Neurological: Anxiety, Depressed Physical Exam Physical Exam Vital Signs Vital Signs - First Documented 03/22/19 03/22/19 03/23/19 18:59 19:02 01:31 Temp 37.2 Pulse 102 Resp 29 B/P (MAP) 160/72 (101) Pulse Ox 86 O2 Delivery Nasal Cannula O2 Flow Rate 3.00 FiO2 44 Capillary Refill : Less Than 3 Seconds Height, Weight, BMI Height: '" Weight: lbs. oz. kg; 35.90 BMI Method: General Appearance: No Apparent Distress, WD/WN, Anxious, Chronically ill, Obese Eyes: Right Eye Normal Inspection, Right Eye PERRL HEENT: PERRL/EOMI, Normal ENT Inspection, Pharynx Normal, Moist Mucous Membranes Neck: Full Range of Motion, Normal Inspection, Non Tender Respiratory: Chest Non Tender, No Respiratory Distress, Accessory Muscle Use, Crackles, Decreased Breath Sounds, Wheezing Cardiovascular: Regular Rate, Rhythm, No Gallop, No JVD, No Murmur, Normal Peripheral Pulses Gastrointestinal: Normal Bowel Sounds, No Organomegaly, No Pulsatile Mass, Non Tender, Soft Back: Normal Inspection, No CVA Tenderness, No Vertebral Tenderness Extremity: Normal Capillary Refill, Normal Inspection, Normal Range of Motion, Non Tender, No Calf Tenderness, Pedal Edema Neurologic/Psychiatric: Alert, Oriented x3, No Motor/Sensory Deficits, Normal Mood/Affect Skin: Normal Color, Warm/Dry Lymphatic: No Adenopathy Results Results/Procedures Labs Laboratory Tests 03/22/19 19:00 03/23/19 02:15 Patient resulted labs reviewed. Assessment/Plan Admission Diagnosis Assessment: AECOPD Pneumonia ARF on CRI sees Nephrology [place] HTN Smoker current Debility lives with daughter Plan: Appreciate Talat Day and Salo Monitor creatinine EST tomorrow O2 Nebs IV steroids IV abx Admission Status: Inpatient Order (span 2 midnights) Reason for Inpatient Admission: Severe hypoxia with elevated wbc and increased creat Diagnosis/Problems Diagnosis/Problems (1) Pneumonia Status: Acute Qualifiers: Pneumonia type: due to unspecified organism Laterality: unspecified laterality Lung location: unspecified part of lung Qualified Codes: J18.9 - Pneumonia, unspecified organism (2) Chronic renal disease (3) Renal failure (ARF), acute on chronic (4) Smoker (5) COPD with exacerbation Status: Acute (6) Hypoxia Status: Acute (7) CHF exacerbation Status: Acute (8) Dyspnea Status: Acute Clinical Quality Measures DVT/VTE Risk/Contraindication: Risk Factor Score Per Nursin RFS Level Per Nursing on Admit: 4+=Very High LEONOR CHAVIRA DO Mar 23, 2019 13:38 POS
[2019-03-23] MEDS: NS IV 1000 ML 1,000 ML IV SCH ×2 (14:24→21:00)
[2019-03-23] MEDS ORDERED: FAMOTIDINE 20 MG (PEPCID) TABLET PO SCH (21:00)
[2019-03-23] MEDS: cefTRIAXone FOR IV USE 1,000 MG in WATER (STERILE) FOR INJECTION 10 ML IV SCH (21:07)
[2019-03-24] VITALS (7 sets, daily range): BP systolic 122–153; BP diastolic 61–77
[2019-03-24] MEDS: RT-ALBUTEROL/IPRATROPIUM 3 ML (DUONEB) VIAL INH SCH ×6 (01:27→21:42)
[2019-03-24] MEDS: NS IV 1000 ML 1,000 ML IV SCH ×2 (03:16→17:49)
[2019-03-24] MEDS: methylPREDNISolone 40 MG/ML (Solu-MEDROL) VIAL IV SCH ×4 (03:17→21:28)
[2019-03-24 03:56] LABS: BASOPHILS % (AUTO) 0 % (0-10); EOSINOPHILS % (AUTO) 0 % (0-10); HEMATOCRIT 36 % (35-52); HEMOGLOBIN 11.5 G/DL (11.5-16.0); LYMPHOCYTES # (AUTO) 0.7 X 10^3 (1.0-4.0); LYMPHOCYTES % (AUTO) 6 % (12-44); MEAN CORPUSCULAR HEMOGLOBIN 29 PG (25-34); MEAN CORPUSCULAR HGB CONC 32 G/DL (32-36); MEAN CORPUSCULAR VOLUME 91 FL (80-99); MEAN PLATELET VOLUME 10.7 FL (7.4-10.4); MONOCYTES # (AUTO) 0.2 X 10^3 (0.0-1.0); MONOCYTES % (AUTO) 2 % (0-12); NEUTROPHILS # (AUTO) 9.7 X 10^3 (1.8-7.8); NEUTROPHILS % (AUTO) 92 % (42-75); PLATELET COUNT 174 10^3/uL (130-400); RED CELL DISTRIBUTION WIDTH 13.5 % (10.0-14.5); WHITE BLOOD COUNT 10.5 10^3/uL (4.3-11.0)
[2019-03-24 04:10] LABS: ALBUMIN 3.2 GM/DL (3.2-4.5); BILIRUBIN,TOTAL 0.2 MG/DL (0.1-1.0); CALCIUM 8.8 MG/DL (8.5-10.1); CREATININE SERUM 1.61 MG/DL (0.60-1.30); MAGNESIUM 1.7 MG/DL (1.6-2.4); PHOSPHORUS 3.5 MG/DL (2.3-4.7); POTASSIUM 3.9 MMOL/L (3.6-5.0); TOTAL PROTEIN 5.8 GM/DL (6.4-8.2)
[2019-03-24 04:29] LABS: BAND NEUTROPHILS 3 %; LYMPHOCYTES % (MANUAL) 3 %; MONOCYTES % (MANUAL) 3 %; NEUTROPHILS % (MANUAL) 91 %
[2019-03-24 04:30] LABS: ANISOCYTOSIS SLIGHT
[2019-03-24] MEDS ORDERED: ENOXAPARIN 40 MG/0.4 ML (LOVENOX) SYR SC SCH (04:45)
[2019-03-24] MEDS ORDERED: RT-ALBUTEROL/IPRATROPIUM 3 ML (DUONEB) VIAL INH SCH (06:00)
--- NOTE | 2019-03-24 08:41 | Diagnostic Imaging Report ---
INDICATION: Shortness of breath. Comparison made with prior examination 03/22/2019. FINDINGS: There is cardiomegaly. There is some right basilar atelectasis and/or pneumonitis. There is no pleural effusion or pneumothorax. Mediastinum is unremarkable. IMPRESSION: Cardiomegaly and some right basilar atelectasis and/or pneumonitis. Dictated by: Dictated on workstation # [id number]
--- NOTE | 2019-03-24 09:24 | NUR ---
DR ALEXIS TOLD THIS NURSE TO HOLD MORNING MEDICATIONS UNTIL AFTER STRESS TEST THEN PATIENT MAY TAKE THEM. PT MAY HAVE A HEART HEALTHY DIET AFTER STRESS TEST.
--- NOTE | 2019-03-24 09:35 | NUR ---
PATIENT HAD HER MEDICATION BOTTLES WITH HER, WE WENT OVER THEM AND COMPARED THEM WITH THE EXT MED HX. IN ADDITION TO WHAT IS SHOWN ON THE EXT MED HX SHE FILLS BYSTOLIC 10MG DAILY #60 01-14-19 AT [facility] IN [place] DUE TO PRICING. SHE FILLS EVERYTHING ELSE AT [facility] IN [place]. SHE TAKES LORATADINE 10MG DAILY OTC. HER ALLOPURINOL IS WRITTEN TO TAKE 2 TABS DAILY HOWEVER SHE STATES SHE ONLY TAKES 1 TAB DAILY. SHE WAS TAKING THE PRESCRIPTION STRENGTH VITAMIN D WEEKLY HOWEVER SHE FINISHED THAT THERAPY AND WAS TOLD TO TAKE A DAILY OTC VITAMIN D. SHE IS UNSURE WHICH STRENGTH SHE SHOULD TAKE AND HAS NOT STARTED THAT YET BUT INTENDS TO GET IT SOON.
--- NOTE | 2019-03-24 11:07 | Progress Note - Hospitalist ---
[facility] 03/24/19 1107: Subjective HPI/CC On Admission Date Seen by Provider: Mar 24, 2019 Time Seen by Provider: 08:34 Chief complaint: Hypoxia with dyspnea History of present illness: This is a 78-year-old white female clinic patient of Bethany Cuadra and Dr. Asher who presented to [facility] for complaints of shortness of breath with findings consistent with volume overload and an infiltrate on chest x-ray. Patient has not been hospitalized recently so she was placed on Rocephin and Zithromax along with nebulizer treatments and IV steroids along with oxygen supplementation. Cardiology has been consulted for elevated BNP and will perform a stress test tomorrow. She does see nephrology in [place] on a regular basis. Patient will be placed on gentle IV fluids to optimize creatinine in case cardiac catheterization is required of which she has had to in the past. She appears to be very debilitated and lives with her daughter and granddaughter. She usually wears oxygen at night and as needed but she has been using her oxygen during the day the last couple of days. PT and OT will be ordered due to significant debility. She continues to smoke of which she says she is stopping now. Subjective/Events-last exam * Pt reports feeling a little better than when she arrived, but still has some SOB * She states the breathing treatments have helped, but it only seems to last for a short period of time * She states her chest feels tight and she can tell she is still wheezing when she breathes * She is currently on 3L O2 nasal cannula and was able to walk to the bathroom and back without any trouble * She reports her last BM was on Sunday (4 days ago) * She was able to urinate normally and has been sleeping well using the CPAP Review of Systems General: No Chills HEENT: Head Aches Pulmonary: Dyspnea, Cough Cardiovascular: No: Chest Pain, Palpitations Gastrointestinal: No: Nausea, Vomiting, Abdominal Pain, Diarrhea Genitourinary: No Dysuria, No Frequency Focused Exam Lactate Level 03/22/19 19:00: Lactic Acid Level 2.65*H 03/22/19 21:00: Lactic Acid Level 1.48 Respiratory: Chest Non Tender, No Accessory Muscle Use, No Respiratory Distress, Wheezing (Bilateral ) Cardiovascular: Regular Rate, Rhythm, Normal Peripheral Pulses Objective Exam Vital Signs Vital Signs Date Time Temp Pulse Resp B/P (MAP) Pulse Ox O2 Delivery O2 Flow Rate FiO2 03/24/19 09:00 98 Nasal Cannula 4.00 03/24/19 08:08 36.1 93 22 134/61 (85) 03/24/19 08:00 40 Capillary Refill : Less Than 3 Seconds General Appearance: WD/WN, Mild Distress Respiratory: Chest Non Tender, No Accessory Muscle Use, No Respiratory Distress, Wheezing Cardiovascular: Regular Rate, Rhythm, No Murmur, Normal Peripheral Pulses Extremity: Normal Range of Motion, No Calf Tenderness, Pedal Edema (minor) Neurologic/Psychiatric: Alert, Normal Mood/Affect Skin: Normal Color, Warm/Dry Results/Procedures Lab Laboratory Tests 03/24/19 03:35 Patient resulted labs reviewed. Assessment/Plan Assessment and Plan Assess & Plan/Chief Complaint Assessment: Acute COPD exacerbation Pneumonia HTN Renal insufficiency Plan: Nebulizer treatments Continue O2 nasal cannula IV steroids IV antibiotics Consult cardiology and pulmonology Manage HTN Clinical Quality Measures DVT/VTE Risk/Contraindication: Risk Factor Score Per Nursin RFS Level Per Nursing on Admit: 4+=Very High LEONOR CHAVIRA DO 03/24/192057: Subjective Subjective/Events-last exam Creatinine 1.6 today May be a candidate for inpatient rehab sinx she has had a stroke and has vascular dementia in addition lives at home with her daughter and granddaughter Wheezing still occurring but improved from yesterday Stress test planned for today Will monitor closely in the meantime Review of Systems Pulmonary: Dyspnea Objective Exam General Appearance: No Apparent Distress, WD/WN, Chronically ill Respiratory: No Accessory Muscle Use, No Respiratory Distress, Crackles, Decreased Breath Sounds, Wheezing Cardiovascular: Regular Rate, Rhythm Neurologic/Psychiatric: Alert, dairy products maker II-XII Norm as Tested, Depressed Affect, Disoriented Assessment/Plan Assessment and Plan Assess & Plan/Chief Complaint EST today IV steroids Barb and Salo both appreciated PT/OT Diagnosis/Problems Diagnosis/Problems (1) COPD with exacerbation Status: Acute (2) Hypoxia Status: Acute (3) Renal failure (ARF), acute on chronic (4) Chronic renal disease (5) Smoker Supervisory-Addendum Brief Verification & Attestation Participated in pt care: history, MDM, physical Personally performed: exam, history, MDM, supervision of care Care discussed with: Medical Student Procedures: n/a Results interpretation: Verified all documentation Verification and Attestation of Medical Student E/M Service A medical student performed and documented this service in my presence. I reviewed and verified all information documented by the medical student and made modifications to such information, when appropriate. I personally performed the physical exam and medical decision making. Leonor Chavira, Mar 24, 2019,20:56 [facility] Mar 24, 2019 11:07 LEONOR MAXWELL DO Mar 24, 2019 20:58 POS
[2019-03-24] MEDS ORDERED: CATHETER FLUSH 10 ML SYR IV PRN (11:45)
[2019-03-24] MEDS ORDERED: REGADENOSON 0.4 MG/5 ML SYR (LEXISCAN) IV ONE (12:17)
[2019-03-24] MEDS: AZITHROMYCIN 250 MG TAB (ZITHROMAX) PO SCH (13:20)
[2019-03-24] MEDS: ASPIRIN 81 MG CHEW (CHILDREN'S ASA) PO SCH (13:20)
[2019-03-24] MEDS: FAMOTIDINE 20 MG (PEPCID) TABLET PO SCH (13:20)
--- NOTE | 2019-03-24 14:17 | NUR ---
RD ASSESSMENT PMHx: COPD; CAD; HTN; stroke; renal failure; gout PT INTERACTION: Pt was awake and pleasant during consult for MST score. Pt states current appetite is "so-so" and has been for "a while." Note pt avg PO intake is 75% x1d, per chart review. Pt states following a regular diet at home, and currently has no issues with chewing/swallowing food at this time. Pt states no recent issues with n/v/c/d at this time. Last BM was 03/21, per chart review. Note pt currently not on bowel regimen at this time. Pt states recent 14# wt loss x3w. Note 2# wt gain x5d, per chart review. Given pt's intake and wt hx, pt is not at risk for malnutrition at this time, per ASPEN guidelines. ABNORMAL NUTRITION-RELATED LAB VALUES: Cl 109 (H); BUN 25 (H); cr 1.61 (H); glu 167 (H); Pro 5.8 (L); HDL 32 (L) Est. kcal needs: 0020-9402 kcal (15-20 kcal/kg) Est. Pro needs: 77-96 g Pro (0.8-1.0 g Pro/kg) PES STATEMENT: Given pt's intake and wt hx, no nutrition diagnosis at this time (NO-1.1) INTERVENTION: Continue with current diet order of Heart Healthy diet. MONITOR/EVALUATE: PO Intake; Plan of Care; Hydration Status; Weight Status; Lab Values Luis Banerjee, MS, RD, LD Ext. 133
--- NOTE | 2019-03-24 17:22 | Progress Note - Cardiology ---
Cardiology SOAP Progress Note Subjective: Shortness of breath with exertion still present No cp or palp or syncope Objective: I&O/Vital Signs 03/24/19 03/24/19 03/24/19 03/24/19 07:00 07:12 08:00 08:08 Temp 36.1 Pulse 80 83 93 Resp 25 22 B/P (MAP) 134/61 (85) Pulse Ox 92 94 94 O2 Delivery Nasal Cannula Nasal Cannula O2 Flow Rate 40.00 4.00 4.00 FiO2 40 03/24/19 03/24/19 03/24/19 03/24/19 09:00 10:59 12:00 12:00 Temp 36.2 Pulse 113 Resp 20 B/P (MAP) 153/73 (99) Pulse Ox 98 91 94 94 O2 Delivery Nasal Cannula Nasal Cannula Nasal Cannula Nasal Cannula O2 Flow Rate 4.00 3.00 4.00 4.00 FiO2 40 03/24/19 03/24/19 03/24/19 03/24/19 13:00 14:23 14:56 16:43 Temp 36.1 37.2 Pulse 117 100 100 Resp 20 B/P (MAP) 139/77 (97) Pulse Ox 94 92 93 O2 Delivery Nasal Cannula Nasal Cannula O2 Flow Rate 3.00 3.00 FiO2 32 03/24/19 00:00 Intake Total 575 ml Output Total 500 ml Balance 75 ml Constitutional: AAO x 3, well-developed, well-nourished Respiratory: No accessory muscle use; other (fair air entry, prolonged exp, expiratory wheezes) Cardiovascular: regular rate-rhythm, S1 and S2, systolic murmur (faint CRISTIANO at card base) Gastrointestional: No tender; soft; No guarding, No rebound; audible bowel sounds, other (reducible, ventral abdominal hernia w/o any physical signs of obstruction/incarceration at time of this exam) Extremities: No clubbing, No cyanosis, No significant edema Neurologic/Psychiatric: oriented x 3, other (moves all limbs equally) Results/Procedures: Labs Laboratory Tests 03/24/19 03:35: White Blood Count 10.5, Red Blood Count 3.92L, Hemoglobin 11.5, Hematocrit 36, Mean Corpuscular Volume 91, Mean Corpuscular Hemoglobin 29, Mean Corpuscular Hemoglobin Concent 32, Red Cell Distribution Width 13.5, Platelet Count 174, Mean Platelet Volume 10.7H, Neutrophils (%) (Auto) 92H, Lymphocytes (%) (Auto) 6L, Monocytes (%) (Auto) 2, Eosinophils (%) (Auto) 0, Basophils (%) (Auto) 0, Neutrophils # (Auto) 9.7H, Lymphocytes # (Auto) 0.7L, Monocytes # (Auto) 0.2, Eosinophils # (Auto) 0.0, Basophils # (Auto) 0.0, Neutrophils % (Manual) 91, Lymphocytes % (Manual) 3, Monocytes % (Manual) 3, Band Neutrophils 3, Anisocytosis SLIGHT, Sodium Level 142, Potassium Level 3.9, Chloride Level 109H, Carbon Dioxide Level 19L, Anion Gap 14, Blood Urea Nitrogen 25H, Creatinine 1.61H, Estimat Glomerular Filtration Rate 31, BUN/Creatinine Ratio 16, Glucose Level 167H, Calcium Level 8.8, Corrected Calcium 9.4, Phosphorus Level 3.5, Magnesium Level 1.7, Total Bilirubin 0.2, Aspartate Amino Transf (AST/SGOT) 11, Alanine Aminotransferase (ALT/SGPT) 11, Alkaline Phosphatase 101, Total Protein 5.8L, Albumin 3.2, Triglycerides Level 87, Cholesterol Level 108, LDL Cholesterol Direct 52, VLDL Cholesterol 17, HDL Cholesterol 32L, Thyroid Stimulating Hormone (TSH) 0.15L Microbiology 03/22/19 Blood Culture - Preliminary, Resulted No growth 03/22/19 Influenza Types A,B Antigen (OZZY) - Final, Complete Laboratory Tests 03/22/19 19:00 03/23/19 02:15 03/24/19 03:35 A/P: Assessment: Shortness of breath likely due to ac exac of COPD due to lower resp tract infection CAD. She reports h/o cor interventions by Dr Thompson at [facility]. Daughter today (03/24/19) states pt has not had coronary stents, but she has had a renal stent) MPI on 03/24/19: basal inferior ischemia, normal wall motion, normal LVEF CKD 3-4 Hypertension, by history Hyperlipidemia, by history Chronic tobacco use (approx 40 pack-years) that she quit in mid-Feb 2019 Ventral abdominal hernia Carotid arterial disease. S/p R CEA in [place], [place]. Pt does not recall surgeon or year of surgery Plan: * I had a detailed conversation with her and her daughter, and I explained the results of MPI to them * Given ischemia, symptoms, and history, it appears reasonable to proceed with card cath (and PCI, if needed). We had a detailed discussion of the rationale, procedure, risks, benefits, potential complications, and alternatives. The pt understands and provides informed consent * Daughter reports CKD 3. I did explain to them the risk of contrast nephropathy would be much higher than usual, given her baseline renal insuff. She understands and still wishes to proceed with cath and any PCI (if needed) * Advised to continue to refrain from smoking KARINE ALEXIS MD FACP FAC CCDS Mar 24, 2019 17:22 POS
[2019-03-24 17:52] LABS: PROTHROMBIN TIME PATIENT 13.7 SEC (12.2-14.7)
[2019-03-24 18:01] LABS: CALCIUM 8.9 MG/DL (8.5-10.1); CREATININE SERUM 1.6 MG/DL (0.60-1.30); POTASSIUM 3.7 MMOL/L (3.6-5.0)
--- NOTE | 2019-03-24 19:11 | STRESS TEST ---
DATE OF SERVICE: 03/24/2019 RESTING AND POST REGADENOSON TECHNETIUM-99M TETROFOSMIN SPECT CT IMAGING ORDERING PHYSICIAN: Janet Leong MD, RANJIT, FACP, FACC PRIMARY PHYSICIAN: Valarie Lopez MD ATTENDING PHYSICIAN: Leonor Rose DO CLINICAL DIAGNOSES: Shortness of breath, coronary artery disease. Baseline images were carried out after injection of 10.17 mCi of technetium-99m Tetrofosmin. This was followed by 0.4 mg regadenoson and 33 mCi of technetium-99m Tetrofosmin for stress imaging. The electrocardiogram showed sinus rhythm at baseline. The electrocardiogram did not change significantly with regadenoson infusion. The patient tolerated the procedure well. Review of images at rest and following stress indicates a transient inferior perfusion defect. Gated images show normal global left ventricular systolic function with normal regional wall motion. Left ventricular ejection fraction is calculated to be 81%. Left ventricular end diastolic volume is 39 mL. TID is absent (1.07). CONCLUSIONS: 1. This study is suggestive of a small to moderate amount of basal inferior ischemia. 2. Normal regional wall motion. 3. Normal global left ventricular systolic function with a calculated ejection fraction of 81%. Job ID: [id number] DocumentID: [id number] Dictated Date: 03/24/2019 16:54:02 Social Work Specialist Date: 03/24/2019 19:09:43 Dictated By: JANET LEONG MD, MA, FACP, FACC,
--- NOTE | 2019-03-24 20:11 | NUR ---
This RN confirmed with Dr. Leong that he would like patient to receive morning dose of Lovenox 40mg on 03/25/19. Order changed to Lovenox 40mg Q24HR to be given at 0700 starting 03/25/2019. See order history.
[2019-03-24] MEDS: cefTRIAXone FOR IV USE 1,000 MG in WATER (STERILE) FOR INJECTION 10 ML IV SCH (21:28)
[2019-03-25] VITALS (13 sets, daily range): BP systolic 130–169; BP diastolic 71–92
[2019-03-25] MEDS: RT-ALBUTEROL/IPRATROPIUM 3 ML (DUONEB) VIAL INH SCH ×6 (01:37→22:37)
[2019-03-25] MEDS: methylPREDNISolone 40 MG/ML (Solu-MEDROL) VIAL IV SCH ×2 (03:41→08:29)
[2019-03-25] MEDS: ACETAMINOPHEN 500 MG TAB (TYLENOL) PO PRN (03:44)
[2019-03-25 03:52] LABS: BASOPHILS % (AUTO) 0 % (0-10); EOSINOPHILS % (AUTO) 0 % (0-10); HEMATOCRIT 35 % (35-52); HEMOGLOBIN 11.2 G/DL (11.5-16.0); LYMPHOCYTES # (AUTO) 0.6 X 10^3 (1.0-4.0); LYMPHOCYTES % (AUTO) 7 % (12-44); MEAN CORPUSCULAR HEMOGLOBIN 30 PG (25-34); MEAN CORPUSCULAR HGB CONC 32 G/DL (32-36); MEAN CORPUSCULAR VOLUME 91 FL (80-99); MEAN PLATELET VOLUME 10.4 FL (7.4-10.4); MONOCYTES # (AUTO) 0.2 X 10^3 (0.0-1.0); MONOCYTES % (AUTO) 2 % (0-12); NEUTROPHILS # (AUTO) 8.2 X 10^3 (1.8-7.8); NEUTROPHILS % (AUTO) 91 % (42-75); PLATELET COUNT 167 10^3/uL (130-400)
[2019-03-25 04:12] LABS: CALCIUM 8.8 MG/DL (8.5-10.1); CREATININE SERUM 1.53 MG/DL (0.60-1.30); MAGNESIUM 1.9 MG/DL (1.6-2.4); PHOSPHORUS 2.9 MG/DL (2.3-4.7); POTASSIUM 4.1 MMOL/L (3.6-5.0)
--- NOTE | 2019-03-25 05:43 | Pulmonary Progress Note ---
Sepsis Event Evaluation Height, Weight, BMI Height: '" Weight: lbs. oz. kg; 35.90 BMI Method: Focused Exam Lactate Level 03/22/19 19:00: Lactic Acid Level 2.65*H 03/22/19 21:00: Lactic Acid Level 1.48 Exam Exam Vital Signs Date Time Temp Pulse Resp B/P (MAP) Pulse Ox O2 Delivery O2 Flow Rate FiO2 03/25/19 04:00 NIV CPAP 4.00 03/25/19 03:39 36.4 98 20 145/79 (101) 96 Nasal Cannula 3.00 03/25/19 01:37 78 25 92 40.00 03/25/19 01:00 74 03/25/19 00:00 36.0 88 18 130/71 (90) 95 NIV CPAP 3.00 03/25/19 00:00 NIV CPAP 4.00 03/24/19 21:42 94 Nasal Cannula 3.00 03/24/19 21:00 98 Nasal Cannula 4.00 03/24/19 20:00 Nasal Cannula 4.00 03/24/19 20:00 36.7 96 20 136/73 (94) 93 Nasal Cannula 3.00 03/24/19 19:00 96 03/24/19 18:35 95 Nasal Cannula 3.00 03/24/19 16:43 37.2 100 20 139/77 (97) 93 Nasal Cannula 3.00 03/24/19 16:00 94 Nasal Cannula 4.00 40 03/24/19 14:56 36.1 100 92 32 03/24/19 14:23 94 Nasal Cannula 3.00 03/24/19 13:00 117 03/24/19 12:00 94 Nasal Cannula 4.00 40 03/24/19 12:00 36.2 113 20 153/73 (99) 94 Nasal Cannula 4.00 03/24/19 10:59 91 Nasal Cannula 3.00 03/24/19 09:00 98 Nasal Cannula 4.00 03/24/19 08:08 36.1 93 22 134/61 (85) 94 Nasal Cannula 4.00 03/24/19 08:00 94 Nasal Cannula 4.00 40 03/24/19 07:12 83 25 92 40.00 03/24/19 07:00 80 I & O 03/25/19 07:00 Intake Total 450 ml Output Total 700 ml Balance -250 ml Height & Weight Height: '" Weight: lbs. oz. 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 Pneumonia -Continue Rocephin and azithromycin -Will repeat CT of chest 8 wks after discharge. RALF with obesity -Will need home CPAP download ROBERTO KILGORE DO Mar 25, 2019 05:43 POS
[2019-03-25] MEDS: ENOXAPARIN 40 MG/0.4 ML (LOVENOX) SYR SC SCH (06:09)
--- NOTE | 2019-03-25 07:24 | Diagnostic Imaging Report ---
INDICATION: Dyspnea. COMPARISON: 03/24/2019 FINDINGS: Single frontal radiographic view of the chest was obtained and demonstrates stable mild cardiomegaly and mild prominence of the pulmonary vasculature. There is increased airspace disease within the left base with partial obscuration of the left hemidiaphragm. Small effusion cannot be excluded. There is no large effusion on the right. No pneumothorax is seen on either side. Osseous structures show no acute abnormalities. IMPRESSION: 1. Cardiomegaly with probable mild pulmonary vascular congestion. 2. New left basilar airspace disease, which may be on the basis of atelectasis, although underlying effusion and/or infiltrate cannot be excluded. Dictated by: Dictated on workstation # [id number]
--- NOTE | 2019-03-25 07:46 | Pulmonary Progress Note ---
Subjective Time Seen by a Provider: 07:46 Subjective/Events-last exam Pt is going for heart cath today. Sepsis Event Evaluation Height, Weight, BMI Height: '" Weight: lbs. oz. kg; 35.90 BMI Method: Focused Exam Lactate Level 03/22/19 19:00: Lactic Acid Level 2.65*H 03/22/19 21:00: Lactic Acid Level 1.48 Exam Exam Vital Signs Date Time Temp Pulse Resp B/P (MAP) Pulse Ox O2 Delivery O2 Flow Rate FiO2 03/25/19 07:00 96 Nasal Cannula 3.00 03/25/19 06:57 87 24 96 40.00 03/25/19 04:00 NIV CPAP 4.00 03/25/19 03:39 36.4 98 20 145/79 (101) 96 Nasal Cannula 3.00 03/25/19 01:37 78 25 92 40.00 03/25/19 01:00 74 03/25/19 00:00 36.0 88 18 130/71 (90) 95 NIV CPAP 3.00 03/25/19 00:00 NIV CPAP 4.00 03/24/19 21:42 94 Nasal Cannula 3.00 03/24/19 21:00 98 Nasal Cannula 4.00 03/24/19 20:00 Nasal Cannula 4.00 03/24/19 20:00 36.7 96 20 136/73 (94) 93 Nasal Cannula 3.00 03/24/19 19:00 96 03/24/19 18:35 95 Nasal Cannula 3.00 03/24/19 16:43 37.2 100 20 139/77 (97) 93 Nasal Cannula 3.00 03/24/19 16:00 94 Nasal Cannula 4.00 40 03/24/19 14:56 36.1 100 92 32 03/24/19 14:23 94 Nasal Cannula 3.00 03/24/19 13:00 117 03/24/19 12:00 94 Nasal Cannula 4.00 40 03/24/19 12:00 36.2 113 20 153/73 (99) 94 Nasal Cannula 4.00 03/24/19 10:59 91 Nasal Cannula 3.00 03/24/19 09:00 98 Nasal Cannula 4.00 03/24/19 08:08 36.1 93 22 134/61 (85) 94 Nasal Cannula 4.00 03/24/19 08:00 94 Nasal Cannula 4.00 40 I & O 03/25/19 07:00 Intake Total 450 ml Output Total 700 ml Balance -250 ml Height & Weight Height: '" Weight: lbs. oz. 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 -echocardiogram pending -Will plan for out pt PFT NSTEMI -Heart cath planned for today. Pneumonia -Continue Rocephin and azithromycin -Will repeat CT of chest 8 wks after discharge. RALF with obesity -Will need home CPAP download ROBERTO KILGORE DO Mar 25, 2019 07:45 POS
[2019-03-25] MEDS: AZITHROMYCIN 250 MG TAB (ZITHROMAX) PO SCH (08:29)
[2019-03-25] MEDS: FAMOTIDINE 20 MG (PEPCID) TABLET PO SCH (08:29)
[2019-03-25] MEDS: ASPIRIN 81 MG CHEW (CHILDREN'S ASA) PO SCH (08:30)
[2019-03-25] MEDS ORDERED: HEParin (CATH LAB) 2,000 ML IV ONE (09:07)
[2019-03-25] MEDS ORDERED: LIDOCAINE 1% INJ 20 ML 20 ML VIAL ONE (09:07)
[2019-03-25] MEDS ORDERED: NS IV 1000 ML 1,000 ML ONE (09:07)
--- NOTE | 2019-03-25 10:06 | Progress Note - Hospitalist ---
MINDI MASON [facility] 03/25/19 1006: Subjective HPI/CC On Admission Date Seen by Provider: Mar 25, 2019 Time Seen by Provider: 07:42 Chief complaint: Hypoxia with dyspnea History of present illness: This is a 78-year-old white female clinic patient of Bethany Cuadra and Dr. Asher who presented to [facility] for complaints of shortness of breath with findings consistent with volume overload and an infiltrate on chest x-ray. Patient has not been hospitalized recently so she was placed on Rocephin and Zithromax along with nebulizer treatments and IV steroids along with oxygen supplementation. Cardiology has been consulted for elevated BNP and will perform a stress test tomorrow. She does see nephrology in [place] on a regular basis. Patient will be placed on gentle IV fluids to optimize creatinine in case cardiac catheterization is required of which she has had to in the past. She appears to be very debilitated and lives with her daughter and granddaughter. She usually wears oxygen at night and as needed but she has been using her oxygen during the day the last couple of days. PT and OT will be ordered due to significant debility. She continues to smoke of which she says she is stopping now. Subjective/Events-last exam CC: Shortness of breath * Pt appears to have improved slightly from yesterday * She does not complain of any trouble breathing today currently on 3L O2 nasal cannula * She states she was not on oxygen prior to this episode when she had to start using it the past week or so * She has been able to eat normally, and has no complaints * She is scheduled for a heart cath today and we will await the results of that procedure Review of Systems General: No Chills; Fatigue HEENT: No Head Aches, No Visual Changes Pulmonary: No Dyspnea, No Cough Cardiovascular: No: Chest Pain, Palpitations Gastrointestinal: No: Nausea, Vomiting, Abdominal Pain, Diarrhea Genitourinary: No Dysuria Focused Exam Lactate Level 03/22/19 19:00: Lactic Acid Level 2.65*H 03/22/19 21:00: Lactic Acid Level 1.48 Respiratory: Chest Non Tender, Lungs Clear, Normal Breath Sounds, No Accessory Muscle Use, No Respiratory Distress Cardiovascular: Regular Rate, Rhythm, No Edema, Normal Peripheral Pulses Peripheral Pulses: 2+ Dorsalis Pedis (R), 2+ Left Dors-Pedis (L), 2+ Radial Pulses (R), 2+ Radial Pulses (L) Skin: normal color, warm/dry Objective Exam Vital Signs Vital Signs Date Time Temp Pulse Resp B/P (MAP) Pulse Ox O2 Delivery O2 Flow Rate FiO2 03/25/19 09:31 98 Nasal Cannula 4.00 03/25/19 08:00 36.4 92 20 158/75 (102) 03/24/19 16:00 40 Capillary Refill : Less Than 3 Seconds General Appearance: No Apparent Distress, WD/WN Respiratory: Chest Non Tender, No Accessory Muscle Use, No Respiratory Distress, Wheezing (Minor) Cardiovascular: Regular Rate, Rhythm, Normal Peripheral Pulses Extremity: Non Tender, No Calf Tenderness, No Pedal Edema Neurologic/Psychiatric: Alert, Oriented x3, No Motor/Sensory Deficits Skin: Normal Color, Warm/Dry Results/Procedures Lab Laboratory Tests 03/24/19 17:25 03/25/19 03:30 Patient resulted labs reviewed. Assessment/Plan Assessment and Plan Assess & Plan/Chief Complaint Assessment: Acute COPD exacerbation Pneumonia HTN Renal insufficiency Plan: Nebulizer treatments Continue O2 nasal cannula IV steroids IV antibiotics Consult cardiology, heart cath scheduled for today [facility] pulmonology Manage HTN Clinical Quality Measures DVT/VTE Risk/Contraindication: Risk Factor Score Per Nursin RFS Level Per Nursing on Admit: 4+=Very High LEONOR CHAVIRA DO 03/25/191934: Subjective Subjective/Events-last exam Pt getting ready for cardiac catheterization. Lovenox was already given this morning. SOB and wheezing continue. IV steroids maintained. Overall feeling pretty good and likely will need to go to rehab after cardiology workup is complete. Review of Systems Pulmonary: Dyspnea Objective Exam General Appearance: No Apparent Distress, WD/WN, Chronically ill Respiratory: Crackles, Decreased Breath Sounds, Wheezing (Minor) Cardiovascular: Regular Rate, Rhythm Neurologic/Psychiatric: Alert, Oriented x3, No Motor/Sensory Deficits, Normal Mood/Affect Assessment/Plan Assessment and Plan Assess & Plan/Chief Complaint Cath today Monitor labs roxy creatinine IRF when stable Diagnosis/Problems Diagnosis/Problems (1) Pneumonia Status: Acute Qualifiers: Qualified Codes: J18.9 - Pneumonia, unspecified organism (2) Hypoxia Status: Acute (3) COPD with exacerbation Status: Acute (4) Chronic renal disease (5) Renal failure (ARF), acute on chronic (6) Smoker Supervisory-Addendum Brief Verification & Attestation Participated in pt care: history, MDM, physical Personally performed: exam, history, MDM, supervision of care Care discussed with: Medical Student Procedures: n/a Results interpretation: Verified all documentation Verification and Attestation of Medical Student E/M Service A medical student performed and documented this service in my presence. I reviewed and verified all information documented by the medical student and made modifications to such information, when appropriate. I personally performed the physical exam and medical decision making. Leonor Chavira, Mar 25, 2019,19:[address] [facility] Mar 25, 2019 10:06 LEONOR MAXWELL DO Mar 25, 2019 19:35 POS
[2019-03-25] MEDS ORDERED: fentaNYL INJECTION 100 MCG/2 ML AMP ONE (10:42)
[2019-03-25] MEDS ORDERED: MIDAZOLAM 5 MG/5 ML (VERSED) VIAL ONE (10:42)
--- NOTE | 2019-03-25 10:56 | Cardiac Procedure Note-CS/ASA ---
Pre-Procedure Note Pre-Op Procedure Note H&P Reviewed The H&P was reviewed, patient examined and no changes noted. Date H&P Reviewed: Mar 25, 2019 Time H&P Reviewed: 10:56 Conscious Sedation Pre-Proced Time 10:56 ASA Score 3, 4 For ASA 3 and 4: Consider anesthesia and medical clearance. Also, for patients with a history of failed moderate sedation consider anesthesia. Airway Lungs Heart ASA score ASA 1: a normal healthy patient ASA 2: a patient with a mild systemic disease (mid diabetes, controlled hypertension, obesity ASA 3: a patient with a severe systemic disease that limits activity (angina, COPD, prior Myocardial infarction) ASA 4: a patient with an incapacitating disease that is a constant threat to life (CHF, renal failure) ASA 5: a moribund patient not expected to survive 24 hrs. (ruptured aneurysm) ASA 6: a declared brain- patient whose organs are being harvested. For emergent operations, add the letter E after the classification Mallampati Classification Grade 2 Sedation Plan Analgesia, Amnesia, Plan communicated to team members, Discussed options with patient/fam, Discussed risks with patient/fam The patient is an appropriate candidate to undergo the planned procedure, sedation, and anesthesia. The patient immediately re-assessed prior to indication. KARINE ALEXIS MD FACP FAC CCDS Mar 25, 2019 10:56 POS
[2019-03-25] MEDS: NS IV 1000 ML 1,000 ML IV SCH ×3 (11:20→21:36)
--- NOTE | 2019-03-25 11:25 | Physical Therapy Evaluation ---
PT Evaluation-General Medical Diagnosis Admission Date Mar 22, 2019 at 20:49 Medical Diagnosis: COPD exacerbation, acute respiratory failure Onset Date: Apr 01, 2019 Therapy Diagnosis Therapy Diagnosis: generalized weakness, debility Precautions Precautions/Isolations: Fall Prevention, Standard Precautions Referral Physician: Milton Reason for Referral: Evaluation/Treatment Medical History Pertinent Medical History: CAD, COPD, HTN, Neuropathy, Smoking Current History ER secondary to SOB for 1 week. Had been to ER 2 days prior to admittance for breathing tx and chest xrays. Reviewed History: Yes Social History Home: Single Level Current Living Status: Other Family Entry Into Home: Stairs With Railing, Level Entry Prior Prior Level of Function SCALE: Activities may be completed with or without assistive devices. 4-Yxmtixdgti-nsyxbgn completes the activity by him/herself with no assistance from a helper. 5-Set-up or Clean-up Assistance-helper sets up or cleans up; patient completes activity. Webster assists only prior to or following the activity. 4-Supervision or Touching Assistance-helper provides verbal cues and/or touching/steadying and/or contact guard assistance as patient completes activity. Assistance may be provided throughout the activity or intermittently. 3-Partial/Moderate Assistance-helper does LESS THAN HALF the effort. Webster lifts, holds or supports trunk or limbs, but provides less than half the effort. 2-Substantial/Maximal Assistance-helper does MORE THAN HALF the effort. Webster lifts or holds trunk or limbs and provides more than half the effort. 3-Wguxmayew-hggyoq does ALL the effort. Patient does none of the effort to complete the activity. Or, the assistance of 2 or more helpers is required for the patient to complete the activity. If activity was not attempted, code reason: 7-Patient Refused. 9-Not Applicable-not attempted and the patient did not perform the activity before the current illness, exacerbation or injury. 10-Not Attempted due to Environmental Limitations-(lack of equipment, weather restraints, etc.). 88-Not Attempted due to Medical Conditions or Safety Concerns. Bed Mobility: 6 Transfers (B,C,W/C): 6 Gait: 6 Stairs: 6 Indoor Mobility (Ambulation): Independent Stairs: Independent Prior Devices Use: None PT Evaluation-Current Subjective Patient agrees to PT and would like to sit up in chair. Patient reports that she is feeling okay and no pain. Reports no SOB. Pain Numeric Pain Scale: 0-No Pain Location: No Pain Reported Objective Patient Orientation: Normal For Age Problem Solving: Good Attachments: Oxygen, IV ROM/Strength ROM Lower Extremities WFL Strength Lower Extremities Unable to assess Integumentary/Posture Integumentary See nursing notes Bowel Incontinence: No Bladder Incontinence: No Posture WFL Neuromuscular (Tone, Coordination, Reflexes) grossly intact Sensory Vision: Functional Hearing: Functional Transfers Roll Left to Right (QC): 6 Lying to Sitting/Side of Bed(Q: 6 Gait Mode of Locomotion: Walk Anticipated Mode of Locomotion: Walk Gait Assistive Device: None Comments/Gait Description Not assessed Balance Sitting Static: Normal Sitting Dynamic: Normal Assessment/Needs Patient able to perform all bed mobility independently and ready to transfer to chair. Upon sitting up, patient IV began to drip blood onto floor. Nursing was notified and IV was adjusted and fixed in place with tape. Patient then taken for heart cath procedure in bed. 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 Facility Services Goals Time Frame: Apr 01, 2019 Sit to Lying (QC): 6 Lying-Sitting on Side/Bed(QC): 6 Sit to Stand (QC): 6 Roll Left to Right (QC): 6 Chair/Amb-kh-Nuuno Xfer(QC): 6 Car Transfer (QC): 6 Does the Patient Walk: Yes Distance: 500' Walk 10 feet (QC): 6 Walk 10ft-Uneven Surface(QC): 6 Walk 50ft with 2 Turns (QC): 6 Walk 150 ft (QC): 6 Gait Assistive Device: None PT Plan Problem List Problem List: Activity Tolerance, Functional Strength, Safety, Balance, Gait, Transfer, Bed Mobility Treatment/Plan Treatment Plan: Continue Plan of Care Treatment Plan: Bed Mobility, Education, Functional Activity Faraz, Functional Strength, Gait, Safety, Therapeutic Exercise, Transfers Treatment Duration: Apr 01, 2019 Frequency: 6 times per week Estimated Hrs Per Day: .25 hour per day Patient and/or Family Agrees t: Yes Time/GCodes Time In: 1022 Time Out: 1037 Total Billed Treatment Time: 15 Total Billed Treatment 1 visit EVLowC 15min SHERRI HERMOSILLO PT Mar 25, 2019 11:25 POS
[2019-03-25] MEDS ORDERED: PATIENT MAY USE OWN MEDS, ALL PO SCH (11:30)
[2019-03-25] MEDS ORDERED: NS IV SCH (11:30)
--- NOTE | 2019-03-25 11:35 | Progress Note - Cardiology ---
Cardiology SOAP Progress Note Subjective: No cp. Shortness of breath is slowly improving. No palp or syncope Objective: I&O/Vital Signs 03/25/19 03/25/19 03/25/19 03/25/19 00:00 00:00 01:00 01:37 Temp 36.0 Pulse 88 74 78 Resp 18 25 B/P (MAP) 130/71 (90) Pulse Ox 95 92 O2 Delivery NIV CPAP NIV CPAP O2 Flow Rate 4.00 3.00 40.00 03/25/19 03/25/19 03/25/19 03/25/19 03:39 04:00 06:57 07:00 Temp 36.4 Pulse 98 87 90 Resp 20 24 B/P (MAP) 145/79 (101) Pulse Ox 96 96 O2 Delivery Nasal Cannula NIV CPAP O2 Flow Rate 3.00 4.00 40.00 03/25/19 03/25/19 03/25/19 03/25/19 07:00 08:00 08:00 09:31 Temp 36.4 Pulse 92 Resp 20 B/P (MAP) 158/75 (102) Pulse Ox 96 92 98 O2 Delivery Nasal Cannula NIV CPAP Nasal Cannula Nasal Cannula O2 Flow Rate 3.00 4.00 3.00 4.00 03/25/19 00:00 Intake Total 400 ml Balance 400 ml Constitutional: AAO x 3, well-developed, well-nourished Respiratory: No accessory muscle use; other (fair air entry, prolonged exp, expiratory wheezes) Cardiovascular: regular rate-rhythm, S1 and S2, systolic murmur (faint CRISTIANO at card base) Gastrointestional: No tender; soft; No guarding, No rebound; audible bowel sounds, other (reducible, ventral abdominal hernia w/o any physical signs of obstruction/incarceration at time of this exam) Extremities: No clubbing, No cyanosis, No significant edema Neurologic/Psychiatric: oriented x 3, other (moves all limbs equally) Skin: normal color, warm/dry Results/Procedures: Labs Laboratory Tests 03/24/19 17:25: Prothrombin Time 13.7, INR Comment 1.0, Activated Partial Thromboplast Time 25, Sodium Level 141, Potassium Level 3.7, Chloride Level 108H, Carbon Dioxide Level 19L, Anion Gap 14, Blood Urea Nitrogen 30H, Creatinine 1.60H, Estimat Glomerular Filtration Rate 31, BUN/Creatinine Ratio 19, Glucose Level 155H, Calcium Level 8.9 03/25/19 03:30: Sodium Level 140, Potassium Level 4.1, Chloride Level 111H, Carbon Dioxide Level 19L, Anion Gap 10, Blood Urea Nitrogen 31H, Creatinine 1.53H, Estimat Glomerular Filtration Rate 33, BUN/Creatinine Ratio 20, Glucose Level 167H, Calcium Level 8.8, White Blood Count 9.0, Red Blood Count 3.79L, Hemoglobin 11.2L, Hematocrit 35, Mean Corpuscular Volume 91, Mean Corpuscular Hemoglobin 30, Mean Corpuscular Hemoglobin Concent 32, Red Cell Distribution Width 14.0, Platelet Count 167, Mean Platelet Volume 10.4, Neutrophils (%) (Auto) 91H, Lymphocytes (%) (Auto) 7L , Monocytes (%) (Auto) 2, Eosinophils (%) (Auto) 0, Basophils (%) (Auto) 0, Neutrophils # (Auto) 8.2H, Lymphocytes # (Auto) 0.6L, Monocytes # (Auto) 0.2, Eosinophils # (Auto) 0.0, Basophils # (Auto) 0.0, Phosphorus Level 2.9, Magnesium Level 1.9 Microbiology 03/22/19 Blood Culture - Preliminary, Resulted No growth 03/22/19 Influenza Types A,B Antigen (OZZY) - Final, Complete Laboratory Tests 03/24/19 03:35 03/24/19 17:25 03/25/19 03:30 A/P: Assessment: Shortness of breath likely due to ac exac of COPD due to lower resp tract i nfection CAD. MPI on 03/24/19: basal inferior ischemia, normal wall motion, normal LVEF. Subsequent card cath of 03/25/19: mild to mod CAD, mild elevation of LVEDP CKD 3-4 Hypertension, by history Hyperlipidemia, by history Chronic tobacco use (approx 40 pack-years) that she quit in mid-Feb 2019 Ventral abdominal hernia Carotid arterial disease. S/p R CEA in [place]. Pt does not recall surgeon or year of surgery Plan: * I reviewed cath findings with her and her daughter in detail. Conservative therapy for mild mod CAD: ASA, statin, beta-patsy * Continue iv fluids for reducing risk of contrast nephropathy * Advised to continue to refrain from smoking KARINE ALEXIS MD FACP FAC CCDS Mar 25, 2019 11:35 POS
--- NOTE | 2019-03-25 11:51 | CARDIAC CATHETERIZATION ---
DATE OF SERVICE: 03/25/2019 CARDIAC CATHETERIZATION REPORT The patient is a 78-year-old lady, who was admitted with chest discomfort and shortness of breath. Myocardial perfusion imaging was indicative of basal inferior ischemia. Cardiac catheterization was carried out after having obtained informed consent. She was also made aware of her additional risk of contrast nephropathy, given baseline renal insufficiency. She provided informed consent. Perioperative hydration was carried out for 24 hours prior to the procedure. Hydration was continued during and is being continued after the procedure. DESCRIPTION OF PROCEDURE: She was brought to the cardiac catheterization laboratory. Right groin was prepared and draped in the usual sterile fashion. Lidocaine 1% was used for local anesthesia. Modified Seldinger technique was used to advance a [place] sheath into the right femoral artery. A [place] JL4 catheter was used for left coronary angiography. A [place] JR4 catheter was used for right coronary angiography. JR4 catheter was not engaging the right coronary artery correctly. We used a [place] Grover right catheter. This also did not selectively engage the right coronary artery, but we were able to visualize the entire right coronary artery. We used a 5[place] pigtail catheter for left heart catheterization. We did not perform left ventricular angiography. This was to save contrast. Angiography of the right femoral artery was carried out through the sheath. Mynx was used to achieve hemostasis. She tolerated the procedure well. HEMODYNAMICS: Left ventricular end-diastolic pressure following coronary angiography was 16 mmHg. There is no significant pressure gradient on pullback across the aortic valve. Ascending aortic pressure was 132/66 with a mean of 92 mmHg. CORONARY ANGIOGRAPHY: Coronary calcification is present. Left main coronary artery does not exhibit significant obstructive disease. Left anterior descending artery has mild diffuse plaques. The first diagonal branch of the left anterior descending artery has mild diffuse plaques. The distal left anterior descending artery has approximately 40% stenosis. The left circumflex artery exhibits mild plaques. Right coronary artery exhibits calcification, especially at the ostium. There are diffuse mild plaques in the right coronary artery. Mitral annular calcification is seen. CONCLUSIONS: 1. Mild to moderate coronary artery disease. 2. Mildly elevated left ventricular end-diastolic pressure. DISCUSSION AND RECOMMENDATION: Based on the results of the study, it appears appropriate to continue a conservative approach. Risk factor modification has been reviewed. Medications are being adjusted. Job ID: [id number] DocumentID: [id number] Dictated Date: 03/25/2019 11:27:27 [employer] Client [employer] Consultant Date: 03/25/2019 11:50:51 Dictated By: KARINE ALEXIS MD, MA, FACP, FACC,
--- NOTE | 2019-03-25 15:59 | Occupational Therapy Eval ---
OT Evaluation-General/PLF Medical Diagnosis Admission Date Mar 22, 2019 at 20:49 Medical Diagnosis: COPD exacerbation, acute respiratory failure Onset Date: Apr 01, 2019 Therapy Diagnosis Therapy Diagnosis: debility Precautions Precautions/Isolations: Fall Prevention, Standard Precautions Safety Interventions: None Referral Physician: [place] Medical History Pertinent Medical History: CAD, COPD, HTN, Neuropathy, Smoking Reviewed History: Yes Social History Home: Single Level Current Living Status: Other Family Entry Into Home: Stairs With Railing ADL-Prior Level of Function SCALE: Activities may be completed with or without assistive devices. 7-Utdxphygte-zxqqzea completes the activity by him/herself with no assistance from a helper. 5-Set-up or Clean-up Assistance-helper sets up or cleans up; patient completes activity. [place] assists only prior to or following the activity. 4-Supervision or Touching Assistance-helper provides verbal cues and/or touching/steadying and/or contact guard assistance as patient completes activity. Assistance may be provided throughout the activity or intermittently. 3-Partial/Moderate Assistance-helper does LESS THAN HALF the effort. [place] lifts, holds or supports trunk or limbs, but provides less than half the effort. 2-Substantial/Maximal Assistance-helper does MORE THAN HALF the effort. [place] lifts or holds trunk or limbs and provides more than half the effort. 6-Jjolcfyse-fldctl does ALL the effort. Patient does none of the effort to complete the activity. Or, the assistance of 2 or more helpers is required for the patient to complete the activity. If activity was not attempted, code reason: 7-Patient Refused. 9-Not Applicable-not attempted and the patient did not perform the activity before the current illness, exacerbation or injury. 10-Not Attempted due to Environmental Limitations-(lack of equipment, weather restraints, etc.). 88-Not Attempted due to Medical Conditions or Safety Concerns. ADL PLOF Comments Pt reports being independent with self care and mobility prior to admission. Does not use any assistive devices. Self Care: Independent Functional Cognition: Independent DME/Equipment: Tub/Shower Drive Self: Yes OT Current Status Subjective Pt sitting in chair, agrees to treatment. Pt has no c/o pain, just states she is tired. Mental Status/Objective Patient Orientation: Person, Place, Situation Attachments: Oxygen Current Glasses/Contacts: Yes Hearing Aids: No Dentures/Partials: Yes Hand Dominance: Right Upper Extremity ROM grossly WFL Upper Extremity Coordination Intact Upper Extremity Sensation intact per pt report ADL-Treatment ADL-Current Pt sitting in chair upon therapist's arrival. RN states pt was recently up to restroom with supervision. Pt combed hair without assist. States she is able to feed herself without assist. Education provided regarding role of OT and plan of care. Pt states understanding of education and has no questions or concerns at this time. Pt sitting in in chair with needs met after session. Eating (QC): 6 (by report) Toilet Transfer (QC): 5 Education OT Patient Education: Rehab process Teaching Recipient: Patient Teaching Methods: Discussion Response to Teaching: Verbalize Understanding OT Short Term Goals Short Term Goals 1=Demonstrate adherence to instructed precautions during ADL tasks. 2=Patient will verbalize/demonstrate understanding of assistive devices/modifications for ADL. 3=Patient will improve strength/tolerance for activity to enable patient to perform ADL's. OT [facility] Goals Dinkey Brakeman Goals Time Frame: Apr 01, 2019 Oral Hygiene (QC): 6 Shower/Bathe Self (QC): 5 Upper Body Dressing (QC): 6 Lower Body Dressing (QC): 6 Toileting Hygiene (QC): 6 Toilet/Commode Transfer (QC): 6 Additional Goals: 1-Demonstrate ADL Tasks, 2-Verbalize Understanding, 3- ImproveStrength/Far[place] 1=Demonstrate adherence to instructed precautions during ADL tasks. 2=Patient will verbalize/demonstrate understanding of assistive devices/modifications for ADL. 3=Patient will improve strength/tolerance for activity to enable patient to perform ADL's. OT Education/Plan Problem List/Assessment Assessment: Decreased Activ Tolerance, Decreased UE Strength, Dependent Transfers, Impaired Self-Care Skills Pt to benefit from skilled OT intervention for ADL training, transfers, strengthening, and safety education to increase level of independence and allow safe discharge plan. Discharge Recommendations Plan/Recommendations: Continue POC Treatment Plan/Plan of Care Treatment,Training & Education: Yes Patient would benefit from OT for education, treatment and training to promote independence in ADL's, mobility, safety and/or upper extremity function for ADL's. Plan of Care: ADL Retraining, Functional Mobility, UE Funct Exercise/Act Treatment Duration: Apr 01, 2019 Frequency: 5 times per week Estimated Hrs Per Day: .25 hour per day Rehab Potential: Fair Time/GCodes Start Time: 15:17 Stop Time: 15:29 Total Time Billed (hr/min): 12 Billed Treatment Time 1 visit, EVAbe(12minutes) TAE PAYAN OT Mar 25, 2019 15:59 POS
[2019-03-25] MEDS ORDERED: methylPREDNISolone 40 MG/ML (Solu-MEDROL) VIAL IV SCH (21:00)
[2019-03-25] MEDS: cefTRIAXone FOR IV USE 1,000 MG in WATER (STERILE) FOR INJECTION 10 ML IV SCH (21:36)
[2019-03-26] VITALS (12 sets, daily range): BP systolic 111–153; BP diastolic 63–84
[2019-03-26] MEDS: RT-ALBUTEROL/IPRATROPIUM 3 ML (DUONEB) VIAL INH SCH ×6 (02:10→22:24)
[2019-03-26 03:52] LABS: BASOPHILS % (AUTO) 0 % (0-10); EOSINOPHILS % (AUTO) 0 % (0-10); HEMATOCRIT 34 % (35-52); LYMPHOCYTES # (AUTO) 0.6 X 10^3 (1.0-4.0); LYMPHOCYTES % (AUTO) 9 % (12-44); MEAN CORPUSCULAR HEMOGLOBIN 30 PG (25-34); MEAN CORPUSCULAR HGB CONC 32 G/DL (32-36); MEAN CORPUSCULAR VOLUME 93 FL (80-99); MEAN PLATELET VOLUME 10.4 FL (7.4-10.4); MONOCYTES # (AUTO) 0.2 X 10^3 (0.0-1.0); MONOCYTES % (AUTO) 3 % (0-12); NEUTROPHILS # (AUTO) 5.4 X 10^3 (1.8-7.8); NEUTROPHILS % (AUTO) 88 % (42-75); PLATELET COUNT 151 10^3/uL (130-400); RED CELL DISTRIBUTION WIDTH 13.6 % (10.0-14.5); WHITE BLOOD COUNT 6.2 10^3/uL (4.3-11.0)
[2019-03-26 04:10] LABS: CALCIUM 8.3 MG/DL (8.5-10.1); CREATININE SERUM 1.45 MG/DL (0.60-1.30); MAGNESIUM 1.8 MG/DL (1.6-2.4); PHOSPHORUS 3.2 MG/DL (2.3-4.7); POTASSIUM 4.3 MMOL/L (3.6-5.0)
--- NOTE | 2019-03-26 05:45 | Diagnostic Imaging Report ---
EXAMINATION: Portable erect AP chest at 3:59 AM INDICATION: Shortness of breath This exam is less than optimal as the left apex is partially obscured by the patient's chin. However, even allowing for this technical factor the appearance of the chest has worsened as a vague area of increased density has developed over the left upper lung. Most likely, this is due to atelectasis/infiltrate. Also since the prior exam, a small amount of atelectasis/infiltrate and fluid has developed in the right lung base. The lungs are otherwise relatively clear although the left retrocardiac region is not well penetrated. The heart is stable. The mediastinum is not widened. The osseous structures are intact. IMPRESSION: The appearance of the chest has worsened since the prior study as new areas of pneumonia/atelectasis have developed in the left upper lung and right lung base. There is also a small right pleural effusion now present. A follow-up exam would be recommended for continued evaluation. Dictated by: Dictated on workstation # [id number]
--- NOTE | 2019-03-26 06:15 | Pulmonary Progress Note ---
Subjective Time Seen by a Provider: 07:14 Subjective/Events-last exam PT is still wheezing and coarse nonproductive cough. Sepsis Event Evaluation Height, Weight, BMI Height: '" Weight: lbs. oz. kg; 35.90 BMI Method: Exam Exam Vital Signs Date Time Temp Pulse Resp B/P (MAP) Pulse Ox O2 Delivery O2 Flow Rate FiO2 03/26/19 04:00 36.2 84 18 149/76 (100) 98 NIV CPAP 3.00 03/26/19 04:00 NIV CPAP 4.00 03/26/19 02:10 80 16 96 40.00 03/26/19 01:00 75 03/26/19 00:00 36.0 85 17 126/63 (84) 95 NIV CPAP 3.00 03/26/19 00:00 NIV CPAP 4.00 03/25/19 22:38 81 22 96 40.00 03/25/19 21:00 98 Nasal Cannula 4.00 03/25/19 20:00 Nasal Cannula 4.00 03/25/19 19:00 36.2 83 20 169/80 (109) 96 Nasal Cannula 3.00 03/25/19 19:00 92 03/25/19 18:41 93 Nasal Cannula 3.50 03/25/19 15:56 36.8 88 18 147/82 (103) 95 Nasal Cannula 3.00 03/25/19 15:31 NIV CPAP 4.00 03/25/19 14:55 95 Nasal Cannula 3.00 03/25/19 14:50 82 18 157/82 (107) 96 03/25/19 13:50 88 18 143/92 (109) 95 03/25/19 13:21 87 18 138/83 (101) 95 03/25/19 13:00 80 03/25/19 12:51 77 18 143/80 (101) 94 03/25/19 12:36 81 18 146/85 (105) 94 03/25/19 12:21 80 16 143/80 (101) 92 03/25/19 12:06 83 18 138/74 (95) 94 03/25/19 12:00 NIV CPAP 4.00 03/25/19 11:51 99 18 137/72 (93) 94 03/25/19 09:31 98 Nasal Cannula 4.00 03/25/19 08:00 36.4 92 20 158/75 (102) 92 Nasal Cannula 3.00 03/25/19 08:00 NIV CPAP 4.00 03/25/19 07:00 96 Nasal Cannula 3.00 03/25/19 07:00 90 03/25/19 06:57 87 24 96 40.00 I & O 03/26/19 07:00 Intake Total 1745 ml Output Total 1025 ml Balance 720 ml Height & Weight Height: '" Weight: lbs. oz. kg; 35.90 BMI Method: General Appearance: WD/WN, Chronically ill, Mild Distress, Obese HEENT: PERRL/EOMI, Normal ENT Inspection, Pharynx Normal, Moist Mucous Membranes Neck: Full Range of Motion, Normal Inspection, Non Tender Respiratory: Crackles, Decreased Breath Sounds, Rhonci (L> R), Wheezing (L>R ) Cardiovascular: Regular Rate, Rhythm Capillary Refill: Less Than 3 Seconds Peripheral Pulses: 2+ Dorsalis Pedis (R), 2+ Left Dors-Pedis (L), 2+ Radial Pulses (R), 2+ Radial Pulses (L) Gastrointestinal: normal bowel sounds, non tender Extremity: Non Tender, No Calf Tenderness, No Pedal Edema Neurologic/Psychiatric: Alert, Oriented x3, No Motor/Sensory Deficits, Normal Mood/Affect Skin: Normal Color, Warm/Dry Lymphatic: No Adenopathy Results Lab Laboratory Tests 03/24/19 17:25 03/25/19 03:30 03/26/19 03:35 Assessment/Plan Assessment/Plan COPDAE - has home 02 -CXR appears worse with increasing atelectasis. Lungs are coarse and wheezy L>R -Will d/w pt bronch this AM for probable mucous plugging -Duonebs Q4 -oxygen -solumedrol 40 Q 6 -- Changed to prednisone 40mg - CT of chest without contrast - reviewed -Will repeat as out patient 8wks later. -echocardiogram -Will plan for out pt PFT -Coarse wheezing -Will start Mucomyst SVN to see if this helps wheezing CP =s/p cath - neg Pneumonia -Continue Rocephin-- change to Omnicef x 3 days then D/C -Azithromycin PO -Will repeat CT of chest 8 wks after discharge. RALF with obesity -Will need home CPAP download -Pt has home CPAP ROBERTO KILGORE DO Mar 26, 2019 06:15 POS
[2019-03-26] MEDS: predniSONE 20 MG TAB PO SCH (06:56)
[2019-03-26] MEDS: ENOXAPARIN 40 MG/0.4 ML (LOVENOX) SYR SC SCH (06:56)
[2019-03-26] MEDS: NS IV 1000 ML 1,000 ML IV SCH ×2 (07:28→17:28)
[2019-03-26] MEDS: aCETylcysteine 20% (MUCOMYST) 30ML SOLN VIAL INH SCH ×3 (07:30→22:24)
--- NOTE | 2019-03-26 07:45 | NUR ---
PATIENT IS ON 3.5 L RT DECREASED O2 TO 2 L; PATIENT USES 3 L AT NOC AND PRN AT HOME.
[2019-03-26] MEDS ORDERED: proPOfol 200 MG/20 ML (DIPRIVAN) VIAL IV ONE (08:14)
[2019-03-26] MEDS ORDERED: fentaNYL INJECTION 100 MCG/2 ML AMP ONE (08:15)
[2019-03-26] MEDS ORDERED: LIDOCAINE PF 2% 5 ML (XYLOCAINE) VIAL ONE (08:15)
[2019-03-26] MEDS ORDERED: MIDAZOLAM 2 MG/2 ML (VERSED) VIAL ONE (08:15)
[2019-03-26] MEDS ORDERED: ROCURONIUM 10 MG/ML 5 ML SYRINGE IV ONE (08:15)
[2019-03-26] MEDS ORDERED: ONDANSETRON 4 MG/2 ML (SDV) Z0FRAN ONE (08:22)
[2019-03-26] MEDS ORDERED: DEXAMETHASONE 10 MG/ML (DECADRON) 1 ML VIAL ONE (08:22)
[2019-03-26] MEDS ORDERED: LACTATED RINGERS 1,000 ML IV ONE ×2 (08:38→08:45)
[2019-03-26] MEDS ORDERED: GLYCOPYRROLATE 0.2 MG/ML (ROBINUL) 2 ML VIAL ONE ×2 (08:41→09:36)
[2019-03-26] MEDS ORDERED: NEOSTIGMINE 3 MG/3 ML VIAL ONE ×2 (08:41→09:36)
[2019-03-26] MEDS ORDERED: SEVOFLURANE (ULTANE) 15 ML INHAL SOLN ONE ×2 (08:48→09:35)
--- NOTE | 2019-03-26 09:44 | Physical Therapy Progress Note ---
Therapy Progress Note Patient having procedure done this morning, will check back this afternoon. SANDRA MORENO PT Mar 26, 2019 09:44 POS
[2019-03-26] MEDS ORDERED: ONDANSETRON 4 MG/2 ML (SDV) Z0FRAN IVP PRN (10:15)
[2019-03-26] MEDS ORDERED: fentaNYL INJECTION 100 MCG/2 ML AMP IVP ONE (10:15)
[2019-03-26] MEDS ORDERED: LIDOCAINE PF 2% 5 ML (XYLOCAINE) VIAL INJ ONE (10:44)
[2019-03-26] MEDS ORDERED: LIDOCAINE PF 1% 2 ML AMP IJ ONE (10:44)
--- NOTE | 2019-03-26 10:45 | Pulmonary Procedures ---
Pulmonary Procedures Date of Procedure Date of Service: Mar 26, 2019 Bronch Bronchoscopy with bilateral washes. Multiple passes were made secondary to copious amounts of mucous plugs bilaterally L>R. Preop DX Atelectasis with probable mucous plugging Postop DX: copious amounts of mucous plugging. No endobronchial mass Complications: none After informed consent obtained and formal time out pt was sedated using Fentanyl and Versed. Bronchoscope was advanced through the nare and vocal cords. 1% lidocaine was used to anesthetize vocal cords, epiglottis, julieta, and left/right main stem bronchus. An anatomical tour was undertaken down to the segmental bronchi bilaterally. No endobronchial lesions noted. copious amounts of mucous plugging. Bronchoscopy with bilateral washes. Multiple passes were made secondary to copious amounts of mucous plugs bilaterally L>R. were obtained. Pt tolerated procedure well. No complications noted. Stat CXR is pending. ROBERTO KILGORE DO Mar 26, 2019 10:45 POS
--- NOTE | 2019-03-26 10:50 | Diagnostic Imaging Report ---
INDICATION: Bronchoscopy. Comparison made with prior examination 03/26/2019. FINDINGS: There is cardiomegaly. There is some venous congestion. There are patchy bibasilar infiltrates. There is a small left pleural effusion. There is no pneumothorax. IMPRESSION: Patchy bibasilar pulmonary infiltrates and a small left pleural effusion Dictated by: Dictated on workstation # [id number]
[2019-03-26] MEDS: FAMOTIDINE 20 MG (PEPCID) TABLET PO SCH (11:24)
[2019-03-26] MEDS: AZITHROMYCIN 250 MG TAB (ZITHROMAX) PO SCH (11:24)
[2019-03-26] MEDS: CEFDINIR 300 MG (OMNICEF) CAP PO SCH ×2 (11:24→20:08)
[2019-03-26] MEDS: ASPIRIN 81 MG CHEW (CHILDREN'S ASA) PO SCH (11:24)
--- NOTE | 2019-03-26 11:31 | NUR ---
IRF Evaluation Chart review complete and it appears patient is functioning near baseline. Patient's ambulation was not tested; however, she is independent with bed mobility and supervision for toilet transfers. It is likely that patient does not require intensive therapies; however, final determination will be made once ambulation and bed/chair transfers are tested. Will continue to follow. Thank you for this referral. Addendum: 03/26/19 at 1641 by ABISAI LOMBARDO Today's PT/OT notes reviewed and it appears patient is ambulating (10ft, no AD) independently and completed shower/bathe, toilet hygiene and toilet transfer with supervision; therefore, it has been determined patient does not require intensive therapies at this time.
--- NOTE | 2019-03-26 12:19 | Anesthesia-General Post-Op ---
General Patient Condition Mental Status/LOC: Same as Preop Cardiovascular: Satisfactory Nausea/Vomiting: Absent Respiratory: Satisfactory Pain: Controlled Complications: Absent Post Op Complications Complications None Follow Up Care/Instructions Patient Instructions None needed. Anesthesia/Patient Condition Patient Condition Patient is doing well, no complaints, stable vital signs, no apparent adverse anesthesia problems. No complications reported per nursing. SIMONA NUNEZ CRNA Mar 26, 2019 12:19 POS
--- NOTE | 2019-03-26 13:08 | Progress Note - Hospitalist ---
MINDI MASON [facility] 03/26/19 1308: Subjective HPI/CC On Admission Date Seen by Provider: Mar 26, 2019 Time Seen by Provider: 07:05 Chief complaint: Hypoxia with dyspnea History of present illness: This is a 78-year-old white female clinic patient of Bethany Cuadra and Dr. Asher who presented to [facility] for complaints of shortness of breath with findings consistent with volume overload and an infiltrate on chest x-ray. Patient has not been hospitalized recently so she was placed on Rocephin and Zithromax along with nebulizer treatments and IV steroids along with oxygen supplementation. Cardiology has been consulted for elevated BNP and will perform a stress test tomorrow. She does see nephrology in [place] on a regular basis. Patient will be placed on gentle IV fluids to optimize creatinine in case cardiac catheterization is required of which she has had to in the past. She appears to be very debilitated and lives with her daughter and granddaughter. She usually wears oxygen at night and as needed but she has been using her oxygen during the day the last couple of days. PT and OT will be ordered due to significant debility. She continues to smoke of which she says she is stopping now. Subjective/Events-last exam * She states she is doing about the same as yesterday * She does not think she is quite back to her baseline, but is definitely better than when she arrived * She slept okay last night * Her CXR was worse especially on the left this morning and Dr Day told her that she needs to have a bronchoscopy to help clear out her lungs * She does report feeling the crackling when she takes a deep breath Review of Systems General: No Chills; Fatigue Pulmonary: No Dyspnea; Cough Cardiovascular: No: Chest Pain, Palpitations Gastrointestinal: No: Nausea, Vomiting, Abdominal Pain, Diarrhea Focused Exam Respiratory: Chest Non Tender, No Accessory Muscle Use, No Respiratory Distress, Crackles, Wheezing Cardiovascular: Regular Rate, Rhythm, No Murmur, Normal Peripheral Pulses Peripheral Pulses: 2+ Dorsalis Pedis (R), 2+ Left Dors-Pedis (L), 2+ Radial Pulses (R), 2+ Radial Pulses (L) Skin: normal color, warm/dry Objective Exam Vital Signs Vital Signs Date Time Temp Pulse Resp B/P (MAP) Pulse Ox O2 Delivery O2 Flow Rate FiO2 03/26/19 12:57 68 11/6/19 12:08 Nasal Cannula 3.00 03/26/19 10:45 36.3 20 149/83 (105) 94 03/24/19 16:00 40 Capillary Refill : Less Than 3 Seconds General Appearance: WD/WN, Mild Distress Respiratory: Chest Non Tender, No Accessory Muscle Use, No Respiratory Distress, Crackles, Wheezing Cardiovascular: Regular Rate, Rhythm, No Edema, No Murmur, Normal Peripheral Pulses Extremity: Normal Inspection, Non Tender, No Calf Tenderness, No Pedal Edema Neurologic/Psychiatric: Alert, Oriented x3, No Motor/Sensory Deficits, Normal Mood/Affect Skin: Normal Color, Warm/Dry Results/Procedures Lab Laboratory Tests 03/26/19 03:35 Patient resulted labs reviewed. Assessment/Plan Assessment and Plan Assess & Plan/Chief Complaint Assessment: Acute COPD exacerbation Pneumonia HTN Renal insufficiency Worsened wheezing and crackle left lung Plan: Nebulizer treatments Continue O2 nasal cannula IV steroids IV antibiotics Consult pulmonology, Bronchoscopy today Manage HTN Clinical Quality Measures DVT/VTE Risk/Contraindication: Risk Factor Score Per Nursin RFS Level Per Nursing on Admit: 4+=Very High LEONOR CHAVIRA DO 03/27/19 0653: Subjective Subjective/Events-last exam Pt had a bronch and Dr. Day removed copious amounts of mucus plugging Overall doing well Back to baseline so not an inpatient rehab candidate Chest x ray appeared to be worst but likely mucus plugging removal will improve that Cardiac catheterization was normal yesterday Review of Systems Pulmonary: Dyspnea Objective Exam General Appearance: No Apparent Distress, WD/WN, Chronically ill Respiratory: No Accessory Muscle Use, No Respiratory Distress, Crackles, Wheezing Cardiovascular: Regular Rate, Rhythm Neurologic/Psychiatric: Alert Assessment/Plan Assessment and Plan Assess & Plan/Chief Complaint IV steroids DC home when ready Supervisory-Addendum Brief Verification & Attestation Participated in pt care: history, MDM, physical Personally performed: exam, history, MDM, supervision of care Care discussed with: Medical Student Procedures: n/a Results interpretation: Verified all documentation Verification and Attestation of Medical Student E/M Service A medical student performed and documented this service in my presence. I reviewed and verified all information documented by the medical student and made modifications to such information, when appropriate. I personally performed the physical exam and medical decision making. Leonor Chavira, Mar 27, 2019,06:53 MINDI MASON MED STUD Mar 26, 2019 13:08 LEONOR MAXWELL DO Mar 27, 2019 06:53 POS
--- NOTE | 2019-03-26 14:09 | Occupational Ther Daily Note ---
OT Current Status-Daily Note Subjective RN reports pt would like a shower today. Pt in bed, agrees to therapy. Has no reports of pain. States she feels better after showering. Mental Status/Objective Attachments: Oxygen ADL-Treatment Pt supine to sit without assist. Sit to stand independently. Gait to restroom with supervision without AD. Transfer to toilet with SBA. Pt able to complete toileting hygiene without assist. Transfer to walk in shower with supervision. Pt completed seated bathing using hand held shower. Pt requested assist to wash her hair, but was able to wash other areas with set up. Pt states she always goes to salon to have her hair done. Don gown with set up. Pt donned socks with set up. Combed hair independently. Pt transferred to EOB with supervision for balance. Pt fatigues with activity and requires occasional rest breaks throughout session. Sitting EOB with needs met and family present after session. Therapy Code Descriptions/Definitions Functional [place] Measure: 0=Not Assessed/NA 4=Minimal Assistance 1=Total Assistance 5=Supervision or Setup 2=Maximal Assistance 6=Modified [place] 3=Moderate Assistance 7=Complete IndependenceSCALE: Activities may be completed with or without assistive devices. 5-Iqclbdtmjc-jtxxamb completes the activity by him/herself with no assistance from a helper. 5-Set-up or Clean-up Assistance-helper sets up or cleans up; patient completes activity. [place] assists only prior to or following the activity. 4-Supervision or Touching Assistance-helper provides verbal cues and/or touching/steadying and/or contact guard assistance as patient completes activity. Assistance may be provided throughout the activity or intermittently. 3-Partial/Moderate Assistance-helper does LESS THAN HALF the effort. [place] lifts, holds or supports trunk or limbs, but provides less than half the effort. 2-Substantial/Maximal Assistance-helper does MORE THAN HALF the effort. [place] lifts or holds trunk or limbs and provides more than half the effort. 8-Jhmmnmwxs-jcjpxw does ALL the effort. Patient does none of the effort to complete the activity. Or, the assistance of 2 or more helpers is required for the patient to complete the activity. If activity was not attempted, code reason: 7-Patient Refused. 9-Not Applicable-not attempted and the patient did not perform the activity before the current illness, exacerbation or injury. 10-Not Attempted due to Environmental Limitations-(lack of equipment, weather restraints, etc.). 88-Not Attempted due to Medical Conditions or Safety Concerns. Shower/Bathe Self (QC): 5 Toileting Hygiene (QC): 5 Toilet Transfer (QC): 5 footwear QC: 5 OT Short Term Goals Short Term Goals 1=Demonstrate adherence to instructed precautions during ADL tasks. 2=Patient will verbalize/demonstrate understanding of assistive devices/modifications for ADL. 3=Patient will improve strength/tolerance for activity to enable patient to perform ADL's. OT Satin Finisher Goals Satin Finisher Goals Time Frame: Apr 01, 2019 Oral Hygiene (QC): 6 Shower/Bathe Self (QC): 5 Upper Body Dressing (QC): 6 Lower Body Dressing (QC): 6 Toileting Hygiene (QC): 6 Toilet/Commode Transfer (QC): 6 Additional Goals: 1-Demonstrate ADL Tasks, 2-Verbalize Understanding, 3- ImproveStrength/Faraz 1=Demonstrate adherence to instructed precautions during ADL tasks. 2=Patient will verbalize/demonstrate understanding of assistive devices/modifications for ADL. 3=Patient will improve strength/tolerance for activity to enable patient to perform ADL's. OT Education/Plan Discharge Recommendations Plan/Recommendations: Continue POC Treatment Plan/Plan of Care Patient would benefit from OT for education, treatment and training to promote independence in ADL's, mobility, safety and/or upper extremity function for ADL' s. Plan of Care: ADL Retraining, Functional Mobility, UE Funct Exercise/Act Treatment Duration: Apr 01, 2019 Frequency: 5 times per week Estimated Hrs Per Day: .25 hour per day Rehab Potential: Fair Time/GCodes Start Time: 13:15 Stop Time: 13:38 Total Time Billed (hr/min): 23 Billed Treatment Time 1 visit, ADLx2(23minutes) TAE PAYAN OT Mar 26, 2019 14:09 POS
--- NOTE | 2019-03-26 15:47 | Physical Therapy Daily Note ---
PT Daily Note-Current Subjective pt in bed pre-tx with nurse tech in room. pt reports she just walked to the bathroom and back with tech. pt reports no pain at this time. Appearance pt in bed post-tx with call light, room phone, tray table in reach with all needs met at this time. Mental Status Patient Orientation: Person, Place, Time, Situation Attachments: Oxygen Transfers SCALE: Activities may be completed with or without assistive devices. 5-Qpvmshwpnx-hyhuplf completes the activity by him/herself with no assistance from a helper. 5-Set-up or Clean-up Assistance-helper sets up or cleans up; patient completes activity. [place] assists only prior to or following the activity. 4-Supervision or Touching Assistance-helper provides verbal cues and/or touching/steadying and/or contact guard assistance as patient completes activity. Assistance may be provided throughout the activity or intermittently. 3-Partial/Moderate Assistance-helper does LESS THAN HALF the effort. [place] lifts, holds or supports trunk or limbs, but provides less than half the effort. 2-Substantial/Maximal Assistance-helper does MORE THAN HALF the effort. [place] lifts or holds trunk or limbs and provides more than half the effort. 9-Lymwvbuno-unoflg does ALL the effort. Patient does none of the effort to complete the activity. Or, the assistance of 2 or more helpers is required for the patient to complete the activity. If activity was not attempted, code reason: 7-Patient Refused. 9-Not Applicable-not attempted and the patient did not perform the activity before the current illness, exacerbation or injury. 10-Not Attempted due to Environmental Limitations-(lack of equipment, weather restraints, etc.). 88-Not Attempted due to Medical Conditions or Safety Concerns. Sit to Lying (QC): 6 Sit to Stand (QC): 6 Gait Training Distance: 20' Walk 10 feet (QC): 6 Gait Assistive Device: None pt ambulates indep around bed without AD. Pt reports she doesn't want to leave the room as she just got done walking and wants to relax. Treatments Pt performed bed mobility, transfer training, and skilled ambulation this date. Assessment Current Status: Good Progress pt ambulates independent around bed without AD. Pt able to bend over and move O2 tubing without having to grab or brace herself for balance. Pt moves into and out of bed indep. Will keep patient on schedule for 1 more day, if she continues to be independent with mobility she will discharge from PT. PT Shelter Goals Casino Operations Supervisor Goals PT Casino Operations Supervisor Goals Time Frame: Apr 01, 2019 Sit to Lying (QC): 6 Lying-Sitting on Side/Bed(QC): 6 Sit to Stand (QC): 6 Roll Left to Right (QC): 6 Chair/Jnt-ew-Wvfad Xfer(QC): 6 Car Transfer (QC): 6 Does the Patient Walk: Yes Distance: 500' Walk 10 feet (QC): 6 Walk 10ft-Uneven Surface(QC): 6 Walk 50ft with 2 Turns (QC): 6 Walk 150 ft (QC): 6 Gait Assistive Device: None PT Plan Problem List Problem List: Activity Tolerance, Functional Strength, Safety, Balance, Gait, Transfer, Bed Mobility Treatment/Plan Treatment Plan: Continue Plan of Care Treatment Plan: Bed Mobility, Education, Functional Activity Faraz, Functional Strength, Gait, Safety, Therapeutic Exercise, Transfers Treatment Duration: Apr 01, 2019 Frequency: 6 times per week Estimated Hrs Per Day: .25 hour per day Patient and/or Family Agrees t: Yes Safety Risks/Education Patient Education: Gait Training, Transfer Techniques, Correct Positioning, Safety Issues Teaching Recipient: Patient Teaching Methods: Demonstration, Discussion Response to Teaching: Return Demonstration, Reinforcement Needed Time/GCodes Time In: 1526 Time Out: 1534 Total Billed Treatment Time: 8 Total Billed Treatment 1 visit FA 8' SANDRA MORENO PT Mar 26, 2019 15:47 POS
--- NOTE | 2019-03-26 18:01 | Progress Note - Cardiology ---
Cardiology SOAP Progress Note Subjective: S/p bronchoscopy for mucous plug removal today No cp Shortness of breath better No palp or syncope Objective: I&O/Vital Signs 03/26/19 03/26/19 03/26/19 03/26/19 06:49 07:30 08:00 08:00 Temp 36.6 Pulse 79 84 Resp 20 B/P (MAP) 145/75 (98) Pulse Ox 92 94 O2 Delivery Nasal Cannula Nasal Cannula NIV CPAP O2 Flow Rate 3.50 4.00 3.00 03/26/19 03/26/19 03/26/19 03/26/19 08:57 09:00 09:26 09:58 Temp 36.3 Resp 16 18 B/P (MAP) 138/73 (94) Pulse Ox 96 98 98 O2 Delivery Nasal Cannula Nasal Cannula OxyMask O2 Flow Rate 3.00 4.00 5 03/26/19 03/26/19 03/26/19 03/26/19 09:58 10:10 10:15 10:20 Resp 20 20 B/P (MAP) 145/81 (102) 150/83 (105) Pulse Ox 96 98 O2 Delivery OxyMask OxyMask OxyMask OxyMask O2 Flow Rate 5 5 5 5 03/26/19 03/26/19 03/26/19 03/26/19 10:30 10:30 10:40 10:45 Resp 20 20 B/P (MAP) 153/84 (107) 153/84 (107) Pulse Ox 95 95 O2 Delivery Nasal Cannula Nasal Cannula Nasal Cannula Nasal Cannula O2 Flow Rate 3 3 3 3 03/26/19 03/26/19 03/26/19 03/26/19 10:45 12:00 12:08 12:57 Temp 36.3 36.3 Pulse 72 68 Resp 20 20 B/P (MAP) 149/83 (105) 132/76 (94) Pulse Ox 94 98 O2 Delivery Nasal Cannula NIV CPAP Nasal Cannula O2 Flow Rate 3 3.00 3.00 03/26/19 03/26/19 03/26/19 14:49 16:00 16:00 Temp 36.4 Pulse 65 Resp 18 B/P (MAP) 111/63 (79) Pulse Ox 93 64 O2 Delivery Nasal Cannula Nasal Cannula O2 Flow Rate 4.00 3.00 03/26/19 00:00 Intake Total 1735 ml Output Total 1025 ml Balance 710 ml Constitutional: AAO x 3, well-developed, well-nourished Respiratory: No accessory muscle use; other (fair air entry, prolonged exp, expiratory wheezes) Cardiovascular: regular rate-rhythm, S1 and S2, systolic murmur (faint CRISTIANO at card base) Gastrointestional: No tender; soft; No guarding, No rebound; audible bowel sounds, other (reducible, ventral abdominal hernia w/o any physical signs of obstruction/incarceration at time of this exam) Extremities: No clubbing, No cyanosis, No significant edema Neurologic/Psychiatric: oriented x 3, other (moves all limbs equally) Skin: normal color, warm/dry Results/Procedures: Labs Laboratory Tests 03/26/19 03:35: White Blood Count 6.2, Red Blood Count 3.71L, Hemoglobin 11.0L, Hematocrit 34L, Mean Corpuscular Volume 93, Mean Corpuscular Hemoglobin 30, Mean Corpuscular Hemoglobin Concent 32, Red Cell Distribution Width 13.6, Platelet Count 151, Mean Platelet Volume 10.4, Neutrophils (%) (Auto) 88H, Lymphocytes (%) (Auto) 9L , Monocytes (%) (Auto) 3, Eosinophils (%) (Auto) 0, Basophils (%) (Auto) 0, Neutrophils # (Auto) 5.4, Lymphocytes # (Auto) 0.6L, Monocytes # (Auto) 0.2, Eosinophils # (Auto) 0.0, Basophils # (Auto) 0.0, Sodium Level 142, Potassium Level 4.3, Chloride Level 111H, Carbon Dioxide Level 20L, Anion Gap 11, Blood Urea Nitrogen 34H, Creatinine 1.45H, Estimat Glomerular Filtration Rate 35, BUN/Creatinine Ratio 23, Glucose Level 159H, Calcium Level 8.3L, Phosphorus Level 3.2, Magnesium Level 1.8 Microbiology 03/22/19 Blood Culture - Preliminary, Resulted No growth 03/22/19 Influenza Types A,B Antigen (OZZY) - Final, Complete Laboratory Tests 03/25/19 03:30 03/26/19 03:35 A/P: Assessment: Shortness of breath likely due to ac exac of COPD due to lower resp tract infection CAD. MPI on 03/24/19: basal inferior ischemia, normal wall motion, normal LVEF. Subsequent card cath of 03/25/19: mild to mod CAD, mild elevation of LVEDP CKD 3-4 Hypertension, by history Hyperlipidemia, by history Chronic tobacco use (approx 40 pack-years) that she quit in mid-Feb 2019 Ventral abdominal hernia Carotid arterial disease. S/p R CEA in [place]. Pt does not recall surgeon or year of surgery Plan: * Continue current regimen * Advised to continue to refrain from smoking * Monitor labs * I answered and her daughter's CV-related questions about her KARINE ALEXIS MD FACP FAC CCDS Mar 26, 2019 18:01 POS
[2019-03-27] VITALS (7 sets, daily range): BP systolic 110–166; BP diastolic 63–75
[2019-03-27] MEDS: RT-ALBUTEROL/IPRATROPIUM 3 ML (DUONEB) VIAL INH SCH ×6 (02:04→22:06)
[2019-03-27 04:15] LABS: BASOPHILS % (AUTO) 0 % (0-10); EOSINOPHILS % (AUTO) 0 % (0-10); HEMATOCRIT 36 % (35-52); HEMOGLOBIN 11.4 G/DL (11.5-16.0); LYMPHOCYTES # (AUTO) 0.8 X 10^3 (1.0-4.0); LYMPHOCYTES % (AUTO) 10 % (12-44); MEAN CORPUSCULAR HGB CONC 32 G/DL (32-36); MEAN CORPUSCULAR VOLUME 93 FL (80-99); MEAN PLATELET VOLUME 10.1 FL (7.4-10.4); MONOCYTES # (AUTO) 0.4 X 10^3 (0.0-1.0); MONOCYTES % (AUTO) 5 % (0-12); NEUTROPHILS # (AUTO) 6.4 X 10^3 (1.8-7.8); NEUTROPHILS % (AUTO) 85 % (42-75); PLATELET COUNT 167 10^3/uL (130-400); WHITE BLOOD COUNT 7.5 10^3/uL (4.3-11.0)
[2019-03-27 04:17] LABS: MEAN CORPUSCULAR HEMOGLOBIN 29 PG (25-34)
[2019-03-27 04:36] LABS: CALCIUM 8.1 MG/DL (8.5-10.1); CREATININE SERUM 1.46 MG/DL (0.60-1.30); MAGNESIUM 2.1 MG/DL (1.6-2.4); PHOSPHORUS 3.4 MG/DL (2.3-4.7); POTASSIUM 4.8 MMOL/L (3.6-5.0)
[2019-03-27] MEDS: ENOXAPARIN 40 MG/0.4 ML (LOVENOX) SYR SC SCH (06:27)
[2019-03-27] MEDS: predniSONE 20 MG TAB PO SCH (06:27)
--- NOTE | 2019-03-27 06:30 | Pulmonary Progress Note ---
Subjective Time Seen by a Provider: 07:18 Subjective/Events-last exam PT feels improved s/p bronchoscopy Sepsis Event Evaluation Height, Weight, BMI Height: '" Weight: lbs. oz. kg; 35.90 BMI Method: Exam Exam Vital Signs Date Time Temp Pulse Resp B/P (MAP) Pulse Ox O2 Delivery O2 Flow Rate FiO2 03/27/19 04:17 36.3 71 26 132/73 (92) 96 03/27/19 04:00 NIV CPAP 40 03/27/19 02:04 70 14 94 40.00 03/27/19 01:00 69 03/27/19 00:05 36.4 80 19 122/63 (82) 93 03/26/19 23:27 Nasal Cannula 3.00 03/26/19 22:27 76 18 95 40.00 03/26/19 21:00 98 Nasal Cannula 3.00 03/26/19 20:00 Nasal Cannula 3.00 03/26/19 20:00 35.2 68 16 113/66 (82) 93 03/26/19 19:00 66 03/26/19 18:54 95 Nasal Cannula 4.00 03/26/19 16:00 Nasal Cannula 3.00 03/26/19 16:00 36.4 65 18 111/63 (79) 64 03/26/19 14:49 93 Nasal Cannula 4.00 03/26/19 12:57 68 03/26/19 12:08 Nasal Cannula 3.00 03/26/19 12:00 36.3 72 20 132/76 (94) 98 NIV CPAP 3.00 03/26/19 10:45 36.3 20 149/83 (105) 94 Nasal Cannula 3 03/26/19 10:45 Nasal Cannula 3 03/26/19 10:40 20 153/84 (107) 95 Nasal Cannula 3 03/26/19 10:30 20 153/84 (107) 95 Nasal Cannula 3 03/26/19 10:30 Nasal Cannula 3 03/26/19 10:20 20 150/83 (105) 98 OxyMask 5 03/26/19 10:15 OxyMask 5 03/26/19 10:10 20 145/81 (102) 96 OxyMask 5 03/26/19 09:58 OxyMask 5 03/26/19 09:58 36.3 18 138/73 (94) 98 OxyMask 5 03/26/19 09:26 16 03/26/19 09:00 98 Nasal Cannula 4.00 03/26/19 08:57 96 Nasal Cannula 3.00 03/26/19 08:00 36.6 84 20 145/75 (98) 94 NIV CPAP 3.00 03/26/19 08:00 Nasal Cannula 4.00 03/26/19 07:30 92 Nasal Cannula 3.50 03/26/19 06:49 79 I & O 03/27/19 07:00 Intake Total 1275 ml Output Total 1450 ml Balance -175 ml Height & Weight Height: '" Weight: lbs. oz. kg; 35.90 BMI Method: General Appearance: No Apparent Distress, WD/WN HEENT: PERRL/EOMI, Normal ENT Inspection, Pharynx Normal, Moist Mucous Membranes Neck: Full Range of Motion, Normal Inspection, Non Tender Respiratory: Chest Non Tender, No Accessory Muscle Use, No Respiratory Distress, Crackles, Rhonci, Wheezing Cardiovascular: Regular Rate, Rhythm, No Edema, No Murmur, Normal Peripheral Pulses Capillary Refill: Less Than 3 Seconds Peripheral Pulses: 2+ Dorsalis Pedis (R), 2+ Left Dors-Pedis (L), 2+ Radial Pulses (R), 2+ Radial Pulses (L) Gastrointestinal: normal bowel sounds, non tender Extremity: Normal Inspection, Non Tender, No Calf Tenderness, No Pedal Edema Neurologic/Psychiatric: Alert, Oriented x3, No Motor/Sensory Deficits, Normal Mood/Affect Skin: Normal Color, Warm/Dry Lymphatic: No Adenopathy Results Lab Laboratory Tests 03/26/19 03:35 03/27/19 03:50 Assessment/Plan Assessment/Plan COPDAE - has home 02 -Duonebs Q4, advair -oxygen - prednisone 40mg - CT of chest without contrast - reviewed -Will repeat as out patient 8wks later. -Will plan for out pt PFT Atelectasis with mucous plugging s/p bronchoscopy - Mucomyst - SVN, advair CP =s/p cath - neg Pneumonia - Omnicef x 3 days then D/C -Azithromycin PO -Will repeat CT of chest 8 wks after discharge. RALF with obesity -Will need home CPAP download -Pt has home CPAP PT is ok from pulmonary standpoint for discharge. I will f/u with her in 2-3 wks. ROBERTO KILGORE DO Mar 27, 2019 06:30 POS
[2019-03-27] MEDS: aCETylcysteine 20% (MUCOMYST) 30ML SOLN VIAL INH SCH ×3 (06:55→22:06)
--- NOTE | 2019-03-27 07:18 | Diagnostic Imaging Report ---
INDICATION: Shortness of breath. Comparison made with prior examination 03/26/2019. FINDINGS: Heart size is normal. There is some venous congestion. There is left basilar infiltrate. There is no pneumothorax. Mediastinum is unremarkable. IMPRESSION: Patchy bibasilar infiltrates and left pleural effusion. Cardiomegaly and some central pulmonary venous congestion. Dictated by: Dictated on workstation # [id number]
[2019-03-27] MEDS: RT-ADVAIR HFA 115/21 MCG PER PUFF IH SCH ×2 (08:26→19:00)
[2019-03-27] MEDS: FAMOTIDINE 20 MG (PEPCID) TABLET PO SCH (08:45)
[2019-03-27] MEDS: ASPIRIN 81 MG CHEW (CHILDREN'S ASA) PO SCH (08:45)
[2019-03-27] MEDS: CEFDINIR 300 MG (OMNICEF) CAP PO SCH ×2 (08:45→21:00)
--- NOTE | 2019-03-27 09:25 | Physical Therapy Daily Note ---
PT Daily Note-Current Subjective Pt agreeable. Wants to return to bed after treatment but reports she will sit up for lunch. Transfers SCALE: Activities may be completed with or without assistive devices. 8-Tyclclzxjq-vpngeto completes the activity by him/herself with no assistance from a helper. 5-Set-up or Clean-up Assistance-helper sets up or cleans up; patient completes activity. [place] assists only prior to or following the activity. 4-Supervision or Touching Assistance-helper provides verbal cues and/or touching/steadying and/or contact guard assistance as patient completes activity. Assistance may be provided throughout the activity or intermittently. 3-Partial/Moderate Assistance-helper does LESS THAN HALF the effort. [place] lifts, holds or supports trunk or limbs, but provides less than half the effort. 2-Substantial/Maximal Assistance-helper does MORE THAN HALF the effort. [place] lifts or holds trunk or limbs and provides more than half the effort. 5-Bffyoyclr-rvqlij does ALL the effort. Patient does none of the effort to complete the activity. Or, the assistance of 2 or more helpers is required for the patient to complete the activity. If activity was not attempted, code reason: 7-Patient Refused. 9-Not Applicable-not attempted and the patient did not perform the activity before the current illness, exacerbation or injury. 10-Not Attempted due to Environmental Limitations-(lack of equipment, weather restraints, etc.). 88-Not Attempted due to Medical Conditions or Safety Concerns. SBA with bed mobility and sit to stand. Occas cues for safety. Gait Training Pt ambulated x 150 ft with SBA without AD with wide JIMENEZ but steady. Assessment Current Status: Good Progress Good functional progress. Pt making gains with mobilty. PT Usp Goals Sleeping Car Service Attendant Goals PT Usp Goals Time Frame: Apr 01, 2019 Sit to Lying (QC): 6 Lying-Sitting on Side/Bed(QC): 6 Sit to Stand (QC): 6 Roll Left to Right (QC): 6 Chair/Pub-bd-Qbhwu Xfer(QC): 6 Car Transfer (QC): 6 Does the Patient Walk: Yes Distance: 500' Walk 10 feet (QC): 6 Walk 10ft-Uneven Surface(QC): 6 Walk 50ft with 2 Turns (QC): 6 Walk 150 ft (QC): 6 Gait Assistive Device: None PT Plan Problem List Problem List: Activity Tolerance, Functional Strength, Safety, Balance, Gait, Transfer, Bed Mobility Treatment/Plan Treatment Plan: Continue Plan of Care Treatment Plan: Bed Mobility, Education, Functional Activity Faraz, Functional Strength, Gait, Safety, Therapeutic Exercise, Transfers Treatment Duration: Apr 01, 2019 Frequency: 6 times per week Estimated Hrs Per Day: .25 hour per day Patient and/or Family Agrees t: Yes Safety Risks/Education Patient Education: Safety Issues Teaching Recipient: Patient Teaching Methods: Demonstration, Discussion Response to Teaching: Return Demonstration, Reinforcement Needed Time/GCodes Time In: 853 Time Out: 909 Total Billed Treatment Time: 16 Total Billed Treatment visit GT 16 BREANNA CONNOLLY PT Mar 27, 2019 09:25 POS
--- NOTE | 2019-03-27 10:15 | Progress Note - Hospitalist ---
MINDI MASON [facility] 03/27/19 1015: Subjective HPI/CC On Admission Date Seen by Provider: Mar 27, 2019 Time Seen by Provider: 07:25 Chief complaint: Hypoxia with dyspnea History of present illness: This is a 78-year-old white female clinic patient of Bethany Cuadra and Dr. Asher who presented to [facility] for complaints of shortness of breath with findings consistent with volume overload and an infiltrate on chest x-ray. Patient has not been hospitalized recently so she was placed on Rocephin and Zithromax along with nebulizer treatments and IV steroids along with oxygen supplementation. Cardiology has been consulted for elevated BNP and will perform a stress test tomorrow. She does see nephrology in [place] on a regular basis. Patient will be placed on gentle IV fluids to optimize creatinine in case cardiac catheterization is required of which she has had to in the past. She appears to be very debilitated and lives with her daughter and granddaughter. She usually wears oxygen at night and as needed but she has been using her oxygen during the day the last couple of days. PT and OT will be ordered due to significant debility. She continues to smoke of which she says she is stopping now. Subjective/Events-last exam * Pt reports feeling a little better today after having the procedure completed yesterday * She reports still being able to feel some crackles in her lung when she breathes, but states it is much better * She has been coughing less and states she does get SOB at times * She reports that the mucamist has been helping, but she denied having a nebul izer at home to be able to continue treatments when she leaves * She states she would like to go home, but does not want to almendarez out and have to return * She was able to sleep okay last night and has been able to eat well * She reports having normal bowel movements Review of Systems HEENT: No Head Aches, No Visual Changes Pulmonary: Dyspnea (Minor at times), Cough (Less frequent) Cardiovascular: No: Chest Pain, Palpitations Gastrointestinal: No: Nausea, Vomiting, Abdominal Pain, Diarrhea Focused Exam Respiratory: Chest Non Tender, No Accessory Muscle Use, No Respiratory Distress, Crackles (Bilateral lower lobes, improved from previous) Cardiovascular: Regular Rate, Rhythm, No Gallop, No Murmur, Normal Peripheral Pulses Peripheral Pulses: 2+ Dorsalis Pedis (R), 2+ Left Dors-Pedis (L), 2+ Radial Pulses (R), 2+ Radial Pulses (L) Skin: normal color, warm/dry Objective Exam Vital Signs Vital Signs Date Time Temp Pulse Resp B/P (MAP) Pulse Ox O2 Delivery O2 Flow Rate FiO2 03/27/19 08:26 91 Nasal Cannula 2.00 03/27/19 08:00 36.5 88 22 110/66 (81) 03/27/19 04:00 40 Capillary Refill : Less Than 3 Seconds General Appearance: No Apparent Distress, WD/WN Respiratory: Chest Non Tender, No Accessory Muscle Use, No Respiratory Distress, Crackles (Bilateral lower lobes, improved from previous) Cardiovascular: Regular Rate, Rhythm, No Edema, No Gallop, No Murmur, Normal Peripheral Pulses Extremity: Non Tender, No Calf Tenderness, No Pedal Edema Neurologic/Psychiatric: Alert, Oriented x3, No Motor/Sensory Deficits, Normal Mood/Affect Skin: Normal Color, Warm/Dry Results/Procedures Lab Laboratory Tests 03/27/19 03:50 Patient resulted labs reviewed. Assessment/Plan Assessment and Plan Assess & Plan/Chief Complaint Assessment: Acute COPD exacerbation Pneumonia HTN Renal insufficiency Plan: Nebulizer treatments Continue O2 nasal cannula IV steroids IV antibiotics Consult pulmonology Manage HTN Clinical Quality Measures DVT/VTE Risk/Contraindication: Risk Factor Score Per Nursin RFS Level Per Nursing on Admit: 4+=Very High CAITLEONOR DO 03/27/19 1651: Subjective Subjective/Events-last exam Pt doing very good. Still wheezing and crackly. Getting closer to discharge, likely tomorrow. Started meds to have a BM. Back to baseline walking so does not need inpatient rehab. Transitioning to oral steroids per Dr. Day. Review of Systems Pulmonary: Dyspnea (Minor at times), Cough (Less frequent) Objective Exam General Appearance: No Apparent Distress Respiratory: No Accessory Muscle Use, No Respiratory Distress, Crackles (Bilateral lower lobes, improved from previous), Wheezing Neurologic/Psychiatric: Alert, Oriented x3, No Motor/Sensory Deficits, Normal Mood/Affect, Disoriented Assessment/Plan Assessment and Plan Assess & Plan/Chief Complaint DC planned for tomorrow Nebs O2 Diagnosis/Problems Diagnosis/Problems (1) Pneumonia Status: Acute Qualifiers: Qualified Codes: J18.9 - Pneumonia, unspecified organism (2) Hypoxia Status: Acute (3) COPD with exacerbation Status: Acute (4) Chronic renal disease (5) Renal failure (ARF), acute on chronic (6) Smoker Supervisory-Addendum Brief Verification & Attestation Participated in pt care: history, MDM, physical Personally performed: exam, history, MDM, supervision of care Care discussed with: Medical Student Procedures: n/a Results interpretation: Verified all documentation Verification and Attestation of Medical Student E/M Service A medical student performed and documented this service in my presence. I reviewed and verified all information documented by the medical student and made modifications to such information, when appropriate. I personally performed the physical exam and medical decision making. Leonor Rose, Mar 27, 2019,16:51 MINDI MASON [facility] Mar 27, 2019 10:15 LEONOR MAXWELL DO Mar 27, 2019 16:51 POS
[2019-03-27] MEDS: LACTULOSE SYRUP 10GM/15ML (ENULOSE) 30ML UDC PO SCH ×2 (11:36→21:00)
[2019-03-27] MEDS: SENNA W/DOCUSATE (SENOKOT S) TABLET PO SCH ×2 (11:36→21:00)
--- NOTE | 2019-03-27 13:18 | Progress Note - Cardiology ---
Cardiology SOAP Progress Note Subjective: No cp or palp or syncope Shortness of breath and malaise are improving Objective: I&O/Vital Signs 03/27/19 03/27/19 03/27/19 03/27/19 02:04 04:00 04:17 06:46 Temp 36.3 Pulse 70 71 79 Resp 14 26 B/P (MAP) 132/73 (92) Pulse Ox 94 96 O2 Delivery NIV CPAP O2 Flow Rate 40.00 FiO2 40 03/27/19 03/27/19 03/27/19 03/27/19 06:55 08:00 08:00 08:26 Temp 36.5 Pulse 88 Resp 22 B/P (MAP) 110/66 (81) Pulse Ox 95 93 91 O2 Delivery Nasal Cannula Nasal Cannula Nasal Cannula O2 Flow Rate 3.00 2.00 2.00 03/27/19 03/27/19 03/27/19 03/27/19 09:00 11:04 12:00 12:00 Temp 36.0 Pulse 70 Resp 18 B/P (MAP) 131/72 (91) Pulse Ox 98 90 93 O2 Delivery Nasal Cannula Nasal Cannula Nasal Cannula Nasal Cannula O2 Flow Rate 2.00 2.00 2.00 2.00 03/27/19 12:47 Pulse 77 03/27/19 00:00 Intake Total 925 ml Output Total 250 ml Balance 675 ml Constitutional: AAO x 3, well-developed, well-nourished Respiratory: No accessory muscle use; other (fair air entry, prolonged exp, expiratory wheezes) Cardiovascular: regular rate-rhythm, S1 and S2, systolic murmur (faint CRISTIANO at card base) Gastrointestional: No tender; soft; No guarding, No rebound; audible bowel sounds, other (reducible, ventral abdominal hernia w/o any physical signs of obstruction/incarceration at time of this exam) Extremities: No clubbing, No cyanosis, No significant edema Neurologic/Psychiatric: oriented x 3, other (moves all limbs equally) Skin: normal color, warm/dry Results/Procedures: Labs Laboratory Tests 03/27/19 03:50: White Blood Count 7.5, Red Blood Count 3.87L, Hemoglobin 11.4L, Hematocrit 36, Mean Corpuscular Volume 93, Mean Corpuscular Hemoglobin 29, Mean Corpuscular Hemoglobin Concent 32, Red Cell Distribution Width 14.0, Platelet Count 167, Mean Platelet Volume 10.1, Neutrophils (%) (Auto) 85H, Lymphocytes (%) (Auto) 10L, Monocytes (%) (Auto) 5, Eosinophils (%) (Auto) 0, Basophils (%) (Auto) 0, Neutrophils # (Auto) 6.4, Lymphocytes # (Auto) 0.8L, Monocytes # (Auto) 0.4, Eosinophils # (Auto) 0.0, Basophils # (Auto) 0.0, Sodium Level 141, Potassium Level 4.8, Chloride Level 111H, Carbon Dioxide Level 20L, Anion Gap 10, Blood Urea Nitrogen 34H, Creatinine 1.46H, Estimat Glomerular Filtration Rate 35, BUN/Creatinine Ratio 23, Glucose Level 139H, Calcium Level 8.1L, Phosphorus Level 3.4, Magnesium Level 2.1 Microbiology 03/22/19 Blood Culture - Preliminary, Resulted No growth 03/26/19 Gram Stain - Final, Resulted 03/26/19 Bronchial Culture, Resulted Pending 03/26/19 Fungal Culture 1, Resulted Pending Laboratory Tests 03/26/19 03:35 03/27/19 03:50 A/P: Assessment: Shortness of breath likely due to ac exac of COPD due to lower resp tract infection CAD. MPI on 03/24/19: basal inferior ischemia, normal wall motion, normal LVEF. Subsequent card cath of 03/25/19: mild to mod CAD, mild elevation of LVEDP CKD 3-4 Hypertension, by history Hyperlipidemia, by history Chronic tobacco use (approx 40 pack-years) that she quit in mid-Feb 2019 Ventral abdominal hernia Carotid arterial disease. S/p R CEA in [place]. Pt does not recall surgeon or year of surgery Plan: * Continue current regimen * Monitor labs * Outpt cardiac f/u advised after discharge KAR[facility] ALEXIS [facility] Mar 27, 2019 13:18 POS
--- NOTE | 2019-03-27 13:47 | NUR ---
DISCHARGE PLANNING: This RN has sat down with the patient to discuss possible needs at discharge. She has been evaluated for IRF but does not meet criteria based on her ability level with independence. Patient desires to return to her home where she lives with her grand-daughter in the front part of the house and available to assist if needed. She already has home O2 and Home CPAP noted in Dr. Belle PN. She does not report any needs at this time for discharge.
--- NOTE | 2019-03-27 14:20 | NUR ---
THIS NURSE NOTIFIED DR KILGORE OF PATIENT'S DAUGHTER'S CONCERN ABOUT HOME OXYGEN MACHINE.
--- NOTE | 2019-03-27 15:17 | Occupational Ther Daily Note ---
OT Current Status-Daily Note Subjective Pt seen in bed, respiratory present. Pt states no pain, somewhat SOB at times. Pt agreeable to OT tx session, denies need for bathroom or out of bed activities. Mental Status/Objective Patient Orientation: Normal For Age ADL-Treatment Therapy Code Descriptions/Definitions Functional [place] Measure: 0=Not Assessed/NA 4=Minimal Assistance 1=Total Assistance 5=Supervision or Setup 2=Maximal Assistance 6=Modified [place] 3=Moderate Assistance 7=Complete IndependenceSCALE: Activities may be completed with or without assistive devices. 1-Pkbrfbglpj-qbfptdm completes the activity by him/herself with no assistance from a helper. 5-Set-up or Clean-up Assistance-helper sets up or cleans up; patient completes activity. [place] assists only prior to or following the activity. 4-Supervision or Touching Assistance-helper provides verbal cues and/or touching/steadying and/or contact guard assistance as patient completes activity. Assistance may be provided throughout the activity or intermittently. 3-Partial/Moderate Assistance-helper does LESS THAN HALF the effort. [place] lifts, holds or supports trunk or limbs, but provides less than half the effort. 2-Substantial/Maximal Assistance-helper does MORE THAN HALF the effort. [place] lifts or holds trunk or limbs and provides more than half the effort. 9-Wlfzxwtyx-arrowz does ALL the effort. Patient does none of the effort to complete the activity. Or, the assistance of 2 or more helpers is required for the patient to complete the activity. If activity was not attempted, code reason: 7-Patient Refused. 9-Not Applicable-not attempted and the patient did not perform the activity before the current illness, exacerbation or injury. 10-Not Attempted due to Environmental Limitations-(lack of equipment, weather restraints, etc.). 88-Not Attempted due to Medical Conditions or Safety Concerns. Eating (QC): 6 Other Treatment Pt completes theraband exercises with HEP worksheet, unable to return demonstrate from model, able to complete with proper form and resistance with moderate cueing from OT. Pt completes 5 exercises BUE (1 set of 10 reps) with SOB noted. Pt educated of diaphragmatic breathing techniques and importance of breathing while in bed/ sitting in recliner chair throughout the day. Pt return demonstrates breathing techniques, left with call light in reach, all needs met. Education OT Patient Education: Correct positioning, Disease process, Exercise program, Home exercise program, Purpose of tx/functional activities, Other (suresh breathing) Teaching Recipient: Patient Teaching Methods: Demonstration, Handout, Discussion Response to Teaching: Verbalize Understanding, Return Demonstration, Reinforcement Needed OT Short Term Goals Short Term Goals 1=Demonstrate adherence to instructed precautions during ADL tasks. 2=Patient will verbalize/demonstrate understanding of assistive devices/modifications for ADL. 3=Patient will improve strength/tolerance for activity to enable patient to perform ADL's. OT Half-Way Goals Social Studies Department Chair Goals Time Frame: Apr 01, 2019 Oral Hygiene (QC): 6 Shower/Bathe Self (QC): 5 Upper Body Dressing (QC): 6 Lower Body Dressing (QC): 6 Toileting Hygiene (QC): 6 Toilet/Commode Transfer (QC): 6 Additional Goals: 1-Demonstrate ADL Tasks, 2-Verbalize Understanding, 3- ImproveStrength/Faraz 1=Demonstrate adherence to instructed precautions during ADL tasks. 2=Patient will verbalize/demonstrate understanding of assistive devices/modifications for ADL. 3=Patient will improve strength/tolerance for activity to enable patient to perform ADL's. OT Education/Plan Problem List/Assessment Assessment: Decreased Activ Tolerance, Decreased UE Strength, Impaired I ADL's, Impaired Self-Care Skills Discharge Recommendations Plan/Recommendations: Continue POC Treatment Plan/Plan of Care Treatment,Training & Education: Yes Patient would benefit from OT for education, treatment and training to promote independence in ADL's, mobility, safety and/or upper extremity function for ADL's. Plan of Care: ADL Retraining, Functional Mobility, UE Funct Exercise/Act Treatment Duration: Apr 01, 2019 Frequency: 5 times per week Estimated Hrs Per Day: .25 hour per day Rehab Potential: Fair Time/GCodes Start Time: 14:38 Stop Time: 14:48 Total Time Billed (hr/min): 10 Billed Treatment Time 1, EX (10) JAYMIE PAULINO OTR Mar 27, 2019 15:17 POS
[2019-03-27] MEDS: ACETAMINOPHEN 500 MG TAB (TYLENOL) PO PRN (21:00)
[2019-03-28] VITALS (8 sets, daily range): BP systolic 131–166; BP diastolic 63–78
[2019-03-28] MEDS: RT-ALBUTEROL/IPRATROPIUM 3 ML (DUONEB) VIAL INH SCH ×6 (02:09→22:08)
[2019-03-28 03:29] LABS: BASOPHILS % (AUTO) 0 % (0-10); EOSINOPHILS % (AUTO) 0 % (0-10); HEMATOCRIT 36 % (35-52); HEMOGLOBIN 11.2 G/DL (11.5-16.0); LYMPHOCYTES # (AUTO) 1.2 X 10^3 (1.0-4.0); LYMPHOCYTES % (AUTO) 14 % (12-44); MEAN CORPUSCULAR HEMOGLOBIN 29 PG (25-34); MEAN CORPUSCULAR HGB CONC 31 G/DL (32-36); MEAN CORPUSCULAR VOLUME 93 FL (80-99); MEAN PLATELET VOLUME 10.5 FL (7.4-10.4); MONOCYTES # (AUTO) 0.5 X 10^3 (0.0-1.0); MONOCYTES % (AUTO) 6 % (0-12); NEUTROPHILS # (AUTO) 6.9 X 10^3 (1.8-7.8); NEUTROPHILS % (AUTO) 80 % (42-75); PLATELET COUNT 157 10^3/uL (130-400); RED CELL DISTRIBUTION WIDTH 13.8 % (10.0-14.5); WHITE BLOOD COUNT 8.6 10^3/uL (4.3-11.0)
[2019-03-28 03:47] LABS: ALBUMIN 3.1 GM/DL (3.2-4.5); BILIRUBIN,TOTAL 0.4 MG/DL (0.1-1.0); CALCIUM 8.2 MG/DL (8.5-10.1); CREATININE SERUM 1.42 MG/DL (0.60-1.30); POTASSIUM 4.5 MMOL/L (3.6-5.0)
--- NOTE | 2019-03-28 05:55 | Pulmonary Progress Note ---
Subjective Time Seen by a Provider: 05:55 Subjective/Events-last exam Pt appears to be doing better. Sepsis Event Evaluation Height, Weight, BMI Height: '" Weight: lbs. oz. kg; 35.90 BMI Method: Exam Exam Vital Signs Date Time Temp Pulse Resp B/P (MAP) Pulse Ox O2 Delivery O2 Flow Rate FiO2 03/28/19 04:00 Nasal Cannula 2.00 03/28/19 04:00 36.8 81 18 143/76 (98) 96 Nasal Cannula 2.00 03/28/19 02:09 84 27 96 40.00 03/28/19 01:00 79 03/28/19 00:00 36.5 84 21 142/63 (89) 94 Nasal Cannula 2.00 03/28/19 00:00 Nasal Cannula 2.00 03/27/19 22:06 68 27 93 40.00 03/27/19 21:00 98 Nasal Cannula 2.00 03/27/19 20:00 Nasal Cannula 2.00 03/27/19 20:00 36.0 74 18 166/65 (98) 95 Nasal Cannula 2.00 03/27/19 19:00 91 Nasal Cannula 2.00 03/27/19 19:00 65 03/27/19 18:57 92 Nasal Cannula 2.00 03/27/19 16:00 36.1 65 22 153/75 (101) Nasal Cannula 3.00 03/27/19 15:25 Nasal Cannula 3.00 03/27/19 15:15 93 Nasal Cannula 2.00 03/27/19 14:35 36.0 79 88 28 03/27/19 12:47 77 03/27/19 12:00 Nasal Cannula 2.00 03/27/19 12:00 36.0 70 18 131/72 (91) 93 Nasal Cannula 2.00 03/27/19 11:04 90 Nasal Cannula 2.00 03/27/19 09:00 98 Nasal Cannula 2.00 03/27/19 08:26 91 Nasal Cannula 2.00 03/27/19 08:00 Nasal Cannula 2.00 03/27/19 08:00 36.5 88 22 110/66 (81) 93 03/27/19 06:55 95 Nasal Cannula 3.00 03/27/19 06:46 79 I & O 03/28/19 07:00 Intake Total 1620 ml Output Total 700 ml Balance 920 ml Height & Weight Height: '" Weight: lbs. oz. kg; 35.90 BMI Method: General Appearance: No Apparent Distress HEENT: PERRL/EOMI, Pharynx Normal Neck: Full Range of Motion, Non Tender, Supple Respiratory: No Accessory Muscle Use, No Respiratory Distress, Crackles (Bi lateral lower lobes, improved from previous), Wheezing Cardiovascular: Regular Rate, Rhythm, No Edema, No Gallop, No Murmur, Normal Peripheral Pulses Capillary Refill: Less Than 3 Seconds Peripheral Pulses: 2+ Dorsalis Pedis (R), 2+ Left Dors-Pedis (L), 2+ Radial Pulses (R), 2+ Radial Pulses (L) Gastrointestinal: normal bowel sounds, non tender Extremity: Non Tender, No Calf Tenderness, No Pedal Edema Neurologic/Psychiatric: Alert, Oriented x3, No Motor/Sensory Deficits, Normal Mood/Affect, Disoriented Skin: Normal Color, Warm/Dry Lymphatic: No Adenopathy Results Lab Laboratory Tests 03/27/19 03:50 03/28/19 03:00 Assessment/Plan Assessment/Plan COPDAE - has home 02 -Duonebs Q4, advair -oxygen - prednisone 40mg - CT of chest without contrast - reviewed -Will repeat as out patient 8wks later. -Will plan for out pt PFT Atelectasis with mucous plugging s/p bronchoscopy - Mucomyst - SVN, advair CP =s/p cath - neg Pneumonia - Omnicef x 3 days then D/C -Azithromycin PO -Will repeat CT of chest 8 wks after discharge. RALF with obesity -Will need home CPAP download -Pt has home CPAP PT is ok from pulmonary standpoint for discharge. I will f/u with her in 2-3 wks. ROBERTO KILGORE DO Mar 28, 2019 05:55 POS
[2019-03-28] MEDS: ENOXAPARIN 40 MG/0.4 ML (LOVENOX) SYR SC SCH (06:33)
[2019-03-28] MEDS: predniSONE 20 MG TAB PO SCH (06:33)
[2019-03-28] MEDS: aCETylcysteine 20% (MUCOMYST) 30ML SOLN VIAL INH SCH ×3 (06:51→22:08)
--- NOTE | 2019-03-28 08:06 | Diagnostic Imaging Report ---
INDICATION: Shortness of breath. COMPARISON: 03/27/2019 TECHNIQUE: Single frontal radiograph of the chest dated 03/28/2019. FINDINGS: The cardiac silhouette is enlarged, though stable. Minimal central pulmonary vascular congestion, improved since the prior examination. Small left and trace right bibasilar pleural-parenchymal opacities, improved since the prior examination. No new focal pulmonary opacity. No pneumothorax. Post surgical changes within the right shoulder. No acute osseous abnormality. IMPRESSION: Improved though persistent minimal central pulmonary vascular congestion. Improved though persisting small left and trace right bibasilar pleural-parenchymal opacities. Dictated by: Dictated on workstation # [id number]
[2019-03-28] MEDS: LACTULOSE SYRUP 10GM/15ML (ENULOSE) 30ML UDC PO SCH ×2 (09:00→20:13)
[2019-03-28] MEDS: FAMOTIDINE 20 MG (PEPCID) TABLET PO SCH (09:29)
[2019-03-28] MEDS: SENNA W/DOCUSATE (SENOKOT S) TABLET PO SCH ×2 (09:29→20:13)
[2019-03-28] MEDS: ASPIRIN 81 MG CHEW (CHILDREN'S ASA) PO SCH (09:30)
[2019-03-28] MEDS: CEFDINIR 300 MG (OMNICEF) CAP PO SCH ×2 (09:30→20:12)
--- NOTE | 2019-03-28 10:17 | Occupational Ther Daily Note ---
OT Current Status-Daily Note Subjective Pt seen in bed, denies pain. Pt agreeable to OT tx session. DO comes in at start of session. Mental Status/Objective Patient Orientation: Normal For Age Attachments: Oxygen ADL-Treatment Therapy Code Descriptions/Definitions Functional [place] Measure: 0=Not Assessed/NA 4=Minimal Assistance 1=Total Assistance 5=Supervision or Setup 2=Maximal Assistance 6=Modified [place] 3=Moderate Assistance 7=Complete IndependenceSCALE: Activities may be completed with or without assistive devices. 4-Pwdcitenkw-qolayux completes the activity by him/herself with no assistance from a helper. 5-Set-up or Clean-up Assistance-helper sets up or cleans up; patient completes activity. [place] assists only prior to or following the activity. 4-Supervision or Touching Assistance-helper provides verbal cues and/or touching/steadying and/or contact guard assistance as patient completes activity. Assistance may be provided throughout the activity or intermittently. 3-Partial/Moderate Assistance-helper does LESS THAN HALF the effort. [place] lifts, holds or supports trunk or limbs, but provides less than half the effort. 2-Substantial/Maximal Assistance-helper does MORE THAN HALF the effort. [place] lifts or holds trunk or limbs and provides more than half the effort. 0-Kajnuiwhw-hlkudb does ALL the effort. Patient does none of the effort to complete the activity. Or, the assistance of 2 or more helpers is required for the patient to complete the activity. If activity was not attempted, code reason: 7-Patient Refused. 9-Not Applicable-not attempted and the patient did not perform the activity before the current illness, exacerbation or injury. 10-Not Attempted due to Environmental Limitations-(lack of equipment, weather restraints, etc.). 88-Not Attempted due to Medical Conditions or Safety Concerns. Eating (QC): 6 Upper Body Dressing (QC): 5 (s/u) Toilet Transfer (QC): 6 Other Treatment Pt denies bathroom or put on clothes, states would like to wash up a bit and change gown. Pt transfers EOB to chair with IND, completes UB washing with s/u, and gown change with s/u. Pt educated on benefits of sitting upright and completing diaphragmatic breathing techniques throughout the day. Pt left in recliner chair, all needs met, call light in reach. Education OT Patient Education: Correct positioning, Modified ADL techniques Teaching Recipient: Patient Teaching Methods: Demonstration, Discussion Response to Teaching: Verbalize Understanding, Return Demonstration OT Short Term Goals Short Term Goals 1=Demonstrate adherence to instructed precautions during ADL tasks. 2=Patient will verbalize/demonstrate understanding of assistive devices/modifications for ADL. 3=Patient will improve strength/tolerance for activity to enable patient to perform ADL's. OT Fpc Goals Security Services Specialist Goals Time Frame: Apr 01, 2019 Oral Hygiene (QC): 6 Shower/Bathe Self (QC): 5 Upper Body Dressing (QC): 6 Lower Body Dressing (QC): 6 Toileting Hygiene (QC): 6 Toilet/Commode Transfer (QC): 6 (met) Additional Goals: 1-Demonstrate ADL Tasks, 2-Verbalize Understanding, 3- ImproveStrength/Faraz 1=Demonstrate adherence to instructed precautions during ADL tasks. 2=Patient will verbalize/demonstrate understanding of assistive devices/modifications for ADL. 3=Patient will improve strength/tolerance for activity to enable patient to perform ADL's. OT Education/Plan Problem List/Assessment Assessment: Decreased UE Strength, Impaired I ADL's, Impaired Self-Care Skills Discharge Recommendations Plan/Recommendations: Continue POC Treatment Plan/Plan of Care Treatment,Training & Education: Yes Patient would benefit from OT for education, treatment and training to promote independence in ADL's, mobility, safety and/or upper extremity function for ADL's. Plan of Care: ADL Retraining, Functional Mobility, UE Funct Exercise/Act Treatment Duration: Apr 01, 2019 Frequency: 5 times per week Estimated Hrs Per Day: .25 hour per day Rehab Potential: Fair Time/GCodes Start Time: 09:45 Stop Time: 09:57 Total Time Billed (hr/min): 12 Billed Treatment Time 1, ADL (12) JAYMIE PAULINO OTR Mar 28, 2019 10:17 POS
[2019-03-28] MEDS: RT-ADVAIR HFA 115/21 MCG PER PUFF IH SCH ×2 (10:43→18:29)
--- NOTE | 2019-03-28 11:21 | Progress Note - Hospitalist ---
[facility] 03/28/19 1121: Subjective HPI/CC On Admission Date Seen by Provider: Mar 28, 2019 Time Seen by Provider: 07:20 Chief complaint: Hypoxia with dyspnea History of present illness: This is a 78-year-old white female clinic patient of Bethany Cuadra and Dr. Asher who presented to [facility] for complaints of shortness of breath with findings consistent with volume overload and an infiltrate on chest x-ray. Patient has not been hospitalized recently so she was placed on Rocephin and Zithromax along with nebulizer treatments and IV steroids along with oxygen supplementation. Cardiology has been consulted for elevated BNP and will perform a stress test tomorrow. She does see nephrology in [place] on a regular basis. Patient will be placed on gentle IV fluids to optimize creatinine in case cardiac catheterization is required of which she has had to in the past. She appears to be very debilitated and lives with her daughter and granddaughter. She usually wears oxygen at night and as needed but she has been using her oxygen during the day the last couple of days. PT and OT will be ordered due to significant debility. She continues to smoke of which she says she is stopping now. Subjective/Events-last exam * Pt reports feeling the same as she did yesterday * She reports still having a dry cough * She reports sleeping okay not great which is normal for her * She would like to go home, but does not want to [place] home and have to come back in the hospital * She is currently on 2L O2 and does not feel SOB, she is normally on 3L at home * She does feel the crackles in her lungs when she takes deep breaths Review of Systems General: No Chills, No Fatigue HEENT: No Head Aches Pulmonary: No Dyspnea; Cough Cardiovascular: No: Chest Pain, Palpitations Gastrointestinal: No: Nausea, Vomiting, Abdominal Pain, Diarrhea, Constipation Genitourinary: No Dysuria Objective Exam Vital Signs Vital Signs Date Time Temp Pulse Resp B/P (MAP) Pulse Ox O2 Delivery O2 Flow Rate FiO2 03/28/19 10:43 94 Nasal Cannula 2.00 03/28/19 08:00 36.0 74 18 166/65 (98) 03/27/19 14:35 28 Capillary Refill : Less Than 3 Seconds General Appearance: No Apparent Distress, WD/WN Respiratory: Chest Non Tender, No Accessory Muscle Use, No Respiratory Distress, Crackles (Bilateral ) Cardiovascular: Regular Rate, Rhythm, No Gallop, No Murmur, Normal Peripheral Pulses Extremity: Normal Inspection, Non Tender, No Calf Tenderness, No Pedal Edema Neurologic/Psychiatric: Alert, Oriented x3, No Motor/Sensory Deficits, Normal Mood/Affect Skin: Normal Color, Warm/Dry Results/Procedures Lab Laboratory Tests 03/28/19 03:00 Patient resulted labs reviewed. Assessment/Plan Assessment and Plan Assess & Plan/Chief Complaint Assessment: Acute COPD exacerbation Pneumonia HTN Renal insufficiency Plan: Nebulizer treatments Continue O2 nasal cannula IV steroids IV antibiotics Consult pulmonology Manage HTN Clinical Quality Measures DVT/VTE Risk/Contraindication: Risk Factor Score Per Nursin RFS Level Per Nursing on Admit: 4+=Very High LEONOR CHAVIRA DO 03/28/19 1656: Subjective Subjective/Events-last exam Pt doing pretty well but still coarse breath sounds. Very difficult situation given the severity of her lung disease and likelihood of re-admit risk. Pt feels pretty good otherwise. Bowels are moving. Eating and drinking well. Conferred with Dr. Day. Review of Systems Pulmonary: Dyspnea Objective Exam General Appearance: No Apparent Distress, WD/WN, Chronically ill Respiratory: Crackles (Bilateral ), Decreased Breath Sounds, Wheezing Cardiovascular: Regular Rate, Rhythm Neurologic/Psychiatric: Alert, Oriented x3, No Motor/Sensory Deficits, Normal Mood/Affect, Disoriented Assessment/Plan Assessment and Plan Assess & Plan/Chief Complaint Hold DC SB? Very severe lung disease Diagnosis/Problems Diagnosis/Problems (1) Hypoxia Status: Acute (2) COPD with exacerbation Status: Acute (3) Chronic renal disease (4) Renal failure (ARF), acute on chronic Supervisory-Addendum Brief Verification & Attestation Participated in pt care: history, MDM, physical Personally performed: exam, history, MDM, supervision of care Care discussed with: Medical Student Procedures: n/a Results interpretation: Verified all documentation Verification and Attestation of Medical Student E/M Service A medical student performed and documented this service in my presence. I re viewed and verified all information documented by the medical student and made modifications to such information, when appropriate. I personally performed the physical exam and medical decision making. Leonor Chavira, Mar 28, 2019,16:56 [facility] Mar 28, 2019 11:21 LEONOR MAXWELL DO Mar 28, 2019 16:56 POS
--- NOTE | 2019-03-28 11:47 | Physical Therapy Daily Note ---
PT Daily Note-Current Subjective Patient agrees to PT at this time to walk in the hallway. Patient has been independent and mobile in her room. Reports no pain. Patient is discharging this evening. Pain Numeric Pain Scale: 0-No Pain Location: No Pain Reported Mental Status Patient Orientation: Normal For Age Attachments: Oxygen (2L) Transfers SCALE: Activities may be completed with or without assistive devices. 8-Vqpwgfzusd-tejolxd completes the activity by him/herself with no assistance from a helper. 5-Set-up or Clean-up Assistance-helper sets up or cleans up; patient completes activity. [place] assists only prior to or following the activity. 4-Supervision or Touching Assistance-helper provides verbal cues and/or touching/steadying and/or contact guard assistance as patient completes activity. Assistance may be provided throughout the activity or intermittently. 3-Partial/Moderate Assistance-helper does LESS THAN HALF the effort. [place] lifts, holds or supports trunk or limbs, but provides less than half the effort. 2-Substantial/Maximal Assistance-helper does MORE THAN HALF the effort. [place] lifts or holds trunk or limbs and provides more than half the effort. 9-Gasnxxouw-wumply does ALL the effort. Patient does none of the effort to complete the activity. Or, the assistance of 2 or more helpers is required for the patient to complete the activity. If activity was not attempted, code reason: 7-Patient Refused. 9-Not Applicable-not attempted and the patient did not perform the activity before the current illness, exacerbation or injury. 10-Not Attempted due to Environmental Limitations-(lack of equipment, weather restraints, etc.). 88-Not Attempted due to Medical Conditions or Safety Concerns. Sit to Stand (QC): 6 Gait Training Does the Patient Walk?: Yes Gait: 6 Distance: 200' Walk 10 feet (QC): 6 Walk 50 ft with 2 Turns(QC): 6 Walk 150 ft (QC): 6 Gait Assistive Device: None Normal pace and pattern. Assessment Patient has been independent with all mobility within room. Patient independently ambulated 200' in hallway with 2L O2. Upon return to room, patient reported some SOB, which she stated was normal after physical activity for her. Patient recovered after a minute of rest in chair. PT Four Roll Calender Operator Goals Four Roll Calender Operator Goals PT Four Roll Calender Operator Goals Time Frame: Apr 01, 2019 Sit to Lying (QC): 6 Lying-Sitting on Side/Bed(QC): 6 Sit to Stand (QC): 6 Roll Left to Right (QC): 6 Chair/Teu-sh-Ihshd Xfer(QC): 6 Car Transfer (QC): 6 Does the Patient Walk: Yes Distance: 500' Walk 10 feet (QC): 6 Walk 10ft-Uneven Surface(QC): 6 Walk 50ft with 2 Turns (QC): 6 Walk 150 ft (QC): 6 Gait Assistive Device: None PT Plan Treatment/Plan Treatment Plan: Continue Plan of Care Treatment Plan: Bed Mobility, Education, Functional Activity [place], Functional Strength, Gait, Safety, Therapeutic Exercise, Transfers Treatment Duration: Apr 01, 2019 Frequency: 6 times per week Estimated Hrs Per Day: .25 hour per day Patient and/or Family Agrees t: Yes Time/GCodes Time In: 1020 Time Out: 1028 Total Billed Treatment Time: 8 Total Billed Treatment 1 visit FA 8min SHERRI HERMOSILLO PT Mar 28, 2019 11:46 POS
--- NOTE | 2019-03-28 16:41 | Progress Note - Cardiology ---
Cardiology SOAP Progress Note Subjective: Still short of breath with mild activity Cough productive of whitish sputum in small quantities No cp No palp or syncope Objective: I&O/Vital Signs 03/28/19 03/28/19 03/28/19 03/28/19 06:48 06:52 08:00 08:00 Temp 36.0 Pulse 87 74 Resp 18 B/P (MAP) 166/65 (98) Pulse Ox 94 95 O2 Delivery Nasal Cannula Nasal Cannula Nasal Cannula O2 Flow Rate 2.00 2.00 2.00 03/28/19 03/28/19 03/28/19 03/28/19 09:00 10:43 12:03 12:03 Temp 36.0 Pulse 70 Resp 18 B/P (MAP) 131/72 (91) Pulse Ox 98 94 93 O2 Delivery Nasal Cannula Nasal Cannula Nasal Cannula Nasal Cannula O2 Flow Rate 2.00 2.00 2.00 2.00 03/28/19 03/28/19 03/28/19 12:42 14:51 16:32 Pulse 77 Pulse Ox 96 O2 Delivery Nasal Cannula Nasal Cannula O2 Flow Rate 2.00 2.00 03/28/19 00:00 Intake Total 1620 ml Output Total 700 ml Balance 920 ml Constitutional: AAO x 3, well-developed, well-nourished Respiratory: No accessory muscle use; other (fair air entry, prolonged exp, expiratory wheezes) Cardiovascular: regular rate-rhythm, S1 and S2, systolic murmur (faint CRISTIANO at card base) Gastrointestional: No tender; soft; No guarding, No rebound; audible bowel silverio nds, other (reducible, ventral abdominal hernia w/o any physical signs of obstruction/incarceration at time of this exam) Extremities: No clubbing, No cyanosis, No significant edema Neurologic/Psychiatric: oriented x 3, other (moves all limbs equally) Skin: normal color, warm/dry Results/Procedures: Labs Laboratory Tests 03/28/19 03:00: White Blood Count 8.6, Red Blood Count 3.87L, Hemoglobin 11.2L, Hematocrit 36, Mean Corpuscular Volume 93, Mean Corpuscular Hemoglobin 29, Mean Corpuscular Hemoglobin Concent 31L, Red Cell Distribution Width 13.8, Platelet Count 157, Mean Platelet Volume 10.5H, Neutrophils (%) (Auto) 80H, Lymphocytes (%) (Auto) 14, Monocytes (%) (Auto) 6, Eosinophils (%) (Auto) 0, Basophils (%) (Auto) 0, Neutrophils # (Auto) 6.9, Lymphocytes # (Auto) 1.2, Monocytes # (Auto) 0.5, Eosinophils # (Auto) 0.0, Basophils # (Auto) 0.0, Sodium Level 141, Potassium Level 4.5, Chloride Level 110H, Carbon Dioxide Level 21, Anion Gap 10, Blood Urea Nitrogen 34H, Creatinine 1.42H, Estimat Glomerular Filtration Rate 36, BUN/Creatinine Ratio 24, Glucose Level 126H, Calcium Level 8.2L, Corrected Calcium 8.9, Total Bilirubin 0.4, Aspartate Amino Transf (AST/SGOT) 11, Alanine Aminotransferase (ALT/SGPT) 25, Alkaline Phosphatase 76, Total Protein 5.0L, Albumin 3.1L Microbiology 03/22/19 Blood Culture - Preliminary, Resulted No growth 03/26/19 Mycobacterial Culture - Preliminary, Resulted A/P: Assessment: Shortness of breath likely due to ac exac of COPD due to lower resp tract infection CAD. MPI on 03/24/19: basal inferior ischemia, normal wall motion, normal LVEF. Subsequent card cath of 03/25/19: mild to mod CAD, mild elevation of LVEDP CKD 3-4 Hypertension, by history Hyperlipidemia, by history Chronic tobacco use (approx 40 pack-years) that she quit in mid-Feb 2019 Ventral abdominal hernia Carotid arterial disease. S/p R CEA in [place]. Pt does not recall surgeon or year of surgery Plan: * No new cardiac issues * I discussed her case on the phone with Dr Day this am * Monitor labs KARINE ALEXIS MD FACP [facility] Mar 28, 2019 16:41 POS
[2019-03-29] VITALS (7 sets, daily range): BP systolic 134–157; BP diastolic 72–82
[2019-03-29] MEDS: RT-ALBUTEROL/IPRATROPIUM 3 ML (DUONEB) VIAL INH SCH ×6 (01:46→22:29)
[2019-03-29 02:47] LABS: BASOPHILS % (AUTO) 0 % (0-10); EOSINOPHILS % (AUTO) 0 % (0-10); HEMATOCRIT 35 % (35-52); HEMOGLOBIN 10.8 G/DL (11.5-16.0); LYMPHOCYTES # (AUTO) 1.4 X 10^3 (1.0-4.0); LYMPHOCYTES % (AUTO) 17 % (12-44); MEAN CORPUSCULAR HEMOGLOBIN 29 PG (25-34); MEAN CORPUSCULAR HGB CONC 31 G/DL (32-36); MEAN CORPUSCULAR VOLUME 92 FL (80-99); MEAN PLATELET VOLUME 9.9 FL (7.4-10.4); MONOCYTES # (AUTO) 0.5 X 10^3 (0.0-1.0); MONOCYTES % (AUTO) 6 % (0-12); NEUTROPHILS # (AUTO) 6.1 X 10^3 (1.8-7.8); NEUTROPHILS % (AUTO) 77 % (42-75); PLATELET COUNT 132 10^3/uL (130-400); RED CELL DISTRIBUTION WIDTH 13.9 % (10.0-14.5); WHITE BLOOD COUNT 7.9 10^3/uL (4.3-11.0)
[2019-03-29 03:15] LABS: CALCIUM 8.2 MG/DL (8.5-10.1); CREATININE SERUM 1.21 MG/DL (0.60-1.30); MAGNESIUM 2.2 MG/DL (1.6-2.4); PHOSPHORUS 3.2 MG/DL (2.3-4.7); POTASSIUM 4.7 MMOL/L (3.6-5.0)
[2019-03-29] MEDS ORDERED: fluCOnazole (DIFLUCAN) 100 MG TAB PO ONE (04:45)
--- NOTE | 2019-03-29 04:48 | Pulmonary Progress Note ---
Subjective Time Seen by a Provider: 04:47 Subjective/Events-last exam No complications noted. Sepsis Event Evaluation Height, Weight, BMI Height: '" Weight: lbs. oz. kg; 35.90 BMI Method: Exam Exam Vital Signs Date Time Temp Pulse Resp B/P (MAP) Pulse Ox O2 Delivery O2 Flow Rate FiO2 03/29/19 04:00 36.5 90 18 148/82 (104) 96 Nasal Cannula 2.00 03/29/19 03:10 Nasal Cannula 2.00 03/29/19 01:46 88 27 92 40.00 03/29/19 01:00 77 03/29/19 00:00 NIV CPAP 40 03/29/19 00:00 36.0 72 18 143/77 (99) 96 NIV CPAP 3.00 03/28/19 22:09 87 28 97 40.00 03/28/19 20:21 98 Nasal Cannula 2.00 03/28/19 20:00 Nasal Cannula 2.00 03/28/19 20:00 35.8 80 18 146/67 (93) 96 Nasal Cannula 2.00 03/28/19 19:00 83 03/28/19 18:34 93 Nasal Cannula 2.00 03/28/19 18:29 93 Nasal Cannula 2.00 03/28/19 16:32 Nasal Cannula 2.00 03/28/19 16:00 36.0 74 16 156/77 (103) 95 Nasal Cannula 2.00 03/28/19 14:51 96 Nasal Cannula 2.00 03/28/19 12:42 77 03/28/19 12:03 Nasal Cannula 2.00 03/28/19 12:03 36.0 70 18 131/72 (91) 93 Nasal Cannula 2.00 03/28/19 12:00 36.4 81 16 147/78 (101) 96 Nasal Cannula 2.00 03/28/19 10:43 94 Nasal Cannula 2.00 03/28/19 09:00 98 Nasal Cannula 2.00 03/28/19 08:00 Nasal Cannula 2.00 03/28/19 08:00 36.0 74 18 166/65 (98) 95 Nasal Cannula 2.00 03/28/19 06:52 94 Nasal Cannula 2.00 03/28/19 06:48 87 I & O 03/29/19 07:00 Intake Total 620 ml Output Total 1000 ml Balance -380 ml Height & Weight Height: '" Weight: lbs. oz. kg; 35.90 BMI Method: General Appearance: No Apparent Distress, WD/WN, Chronically ill HEENT: PERRL/EOMI, Pharynx Normal Neck: Full Range of Motion, Non Tender, Supple Respiratory: Crackles (Bilateral ), Decreased Breath Sounds, Wheezing Cardiovascular: Regular Rate, Rhythm Capillary Refill: Less Than 3 Seconds Peripheral Pulses: 2+ Dorsalis Pedis (R), 2+ Left Dors-Pedis (L), 2+ Radial Pulses (R), 2+ Radial Pulses (L) Gastrointestinal: normal bowel sounds, non tender Extremity: Normal Inspection, Non Tender, No Calf Tenderness, No Pedal Edema Neurologic/Psychiatric: Alert, Oriented x3, No Motor/Sensory Deficits, Normal Mood/Affect, Disoriented Skin: Normal Color, Warm/Dry Lymphatic: No Adenopathy Results Lab Laboratory Tests 03/28/19 03:00 03/29/19 02:39 Assessment/Plan Assessment/Plan COPDAE - has home 02 -Duonebs Q4, advair -oxygen - prednisone 40mg x 5 days then D/C - CT of chest without contrast - reviewed -Will repeat as out patient 8wks later. -Will plan for out pt PFT -Lasix 40 IV daily secondary to pulmonary edema Atelectasis with mucous plugging s/p bronchoscopy - Mucomyst - SVN, advair CP =s/p cath - neg Pneumonia with candidiasis -Start Diflucan x 7days then D/C - Omnicef x 3 days then D/C -Azithromycin PO -Will repeat CT of chest 8 wks after discharge. RALF with obesity -Will need home CPAP download -Pt has home CPAP ROBERTO KILGORE DO Mar 29, 2019 04:48 POS
[2019-03-29] MEDS: ENOXAPARIN 40 MG/0.4 ML (LOVENOX) SYR SC SCH (06:01)
[2019-03-29] MEDS: predniSONE 20 MG TAB PO SCH (06:01)
--- NOTE | 2019-03-29 06:54 | Diagnostic Imaging Report ---
INDICATION: Shortness of breath. Comparison made with prior examination of 03/28/2019. FINDINGS: There is cardiomegaly. There is bibasilar atelectasis and/or pneumonitis. There is a small left pleural effusion. No pneumothorax. Mediastinum is unremarkable. IMPRESSION: Bibasilar subsegmental atelectasis and/or pneumonitis and small left pleural effusion. Dictated by: Dictated on workstation # [id number]
[2019-03-29] MEDS: RT-ADVAIR HFA 115/21 MCG PER PUFF IH SCH ×2 (07:43→18:52)
[2019-03-29] MEDS ORDERED: FUROSEMIDE 40 MG/4 ML INJ (LASIX) IVP SCH (09:00)
[2019-03-29] MEDS: LACTULOSE SYRUP 10GM/15ML (ENULOSE) 30ML UDC PO SCH ×2 (09:00→21:03)
[2019-03-29] MEDS: SENNA W/DOCUSATE (SENOKOT S) TABLET PO SCH ×2 (09:00→21:04)
--- NOTE | 2019-03-29 09:29 | Progress Note - Hospitalist ---
Subjective HPI/CC On Admission Date Seen by Provider: Mar 29, 2019 Time Seen by Provider: 09:00 Chief complaint: Hypoxia with dyspnea History of present illness: This is a 78-year-old white female clinic patient of Bethany Cuadra and Dr. Asher who presented to [place] [facility] for complaints of shortness of breath with findings consistent with volume overload and an infiltrate on chest x-ray. Patient has not been hospitalized recently so she was placed on Rocephin and Zithromax along with nebulizer treatments and IV steroids along with oxygen supplementation. Cardiology has been consulted for elevated BNP and will perform a stress test tomorrow. She does see nephrology in [place] on a regular basis. Patient will be placed on gentle IV fluids to optimize creatinine in case cardiac catheterization is required of which she has had to in the past. She appears to be very debilitated and lives with her daughter and granddaughter. She usually wears oxygen at night and as needed but she has been using her oxygen during the day the last couple of days. PT and OT will be ordered due to significant debility. She continues to smoke of which she says she is stopping now. Subjective/Events-last exam Patient currently is without complaint today. She likes her home CPAP mask better than the one here. She does note that she is getting up and walking to the bathroom and is feeling stronger. She asks if she can go home today. Review of Systems Pulmonary: Dyspnea, Cough Neurological: Weakness Objective Exam Vital Signs Vital Signs Date Time Temp Pulse Resp B/P (MAP) Pulse Ox O2 Delivery O2 Flow Rate FiO2 03/29/19 07:54 Nasal Cannula 2.00 03/29/19 07:44 94 03/29/19 07:00 94 03/29/19 04:00 36.5 18 148/82 (104) 03/29/19 00:00 40 Capillary Refill : Less Than 3 Seconds General Appearance: Chronically ill HEENT: Normal ENT Inspection Neck: Non Tender, Limited Range of Motion Respiratory: Crackles, Decreased Breath Sounds, Wheezing Cardiovascular: Regular Rate, Rhythm, No Gallop, Systolic Murmur Gastrointestinal: Normal Bowel Sounds, Soft, Hernia (Central) Extremity: Pedal Edema Neurologic/Psychiatric: Alert, Oriented x3, No Motor/Sensory Deficits, Normal Mood/Affect Skin: Normal Color, Warm/Dry Results/Procedures Lab Laboratory Tests 03/29/19 02:39 Patient resulted labs reviewed. Imaging: Reviewed Imaging Report Assessment/Plan Assessment and Plan Assess & Plan/Chief Complaint 1. Pneumonia on Cefdinir and 40 mg of prednisone 2. Abnormal CT chest with adenopathy and pneumonia with recommendations for follow-up as an outpatient to make sure there is resolution 3. Obstructive sleep apnea 4. History of hypertension-good control 5. Weakness and debility receiving physical therapy 6. COPD Discharge planning for Sunday or Sunday Clinical Quality Measures DVT/VTE Risk/Contraindication: Risk Factor Score Per Nursin RFS Level Per Nursing on Admit: 4+=Very High OPAL BENTON MD Mar 29, 2019 09:29 POS
[2019-03-29] MEDS: ASPIRIN 81 MG CHEW (CHILDREN'S ASA) PO SCH (09:55)
[2019-03-29] MEDS: CEFDINIR 300 MG (OMNICEF) CAP PO SCH ×2 (09:55→21:26)
[2019-03-29] MEDS: FAMOTIDINE 20 MG (PEPCID) TABLET PO SCH (09:55)
[2019-03-29] MEDS: aCETylcysteine 20% (MUCOMYST) 30ML SOLN VIAL INH SCH ×4 (11:07→22:29)
--- NOTE | 2019-03-29 16:47 | Progress Note - Cardiology ---
Cardiology SOAP Progress Note Subjective: Shortness of breath improving No cp or palp or syncope Objective: I&O/Vital Signs 03/29/19 03/29/19 03/29/19 03/29/19 07:00 07:44 07:54 08:00 Temp 36.6 Pulse 94 83 Resp 20 B/P (MAP) 157/80 (105) Pulse Ox 94 95 O2 Delivery Nasal Cannula Nasal Cannula Nasal Cannula O2 Flow Rate 2.00 2.00 2.00 03/29/19 03/29/19 03/29/19 03/29/19 08:00 09:00 11:07 12:00 Pulse Ox 98 92 O2 Delivery Nasal Cannula Nasal Cannula Nasal Cannula Nasal Cannula O2 Flow Rate 2.00 2.00 2.00 2.00 03/29/19 03/29/19 03/29/19 12:00 13:00 14:48 Temp 36.8 Pulse 79 79 Resp 16 B/P (MAP) 153/78 (103) Pulse Ox 94 93 O2 Delivery Nasal Cannula Nasal Cannula O2 Flow Rate 2.00 2.00 03/29/19 00:00 Intake Total 620 ml Output Total 1000 ml Balance -380 ml Constitutional: AAO x 3, well-developed, well-nourished Respiratory: No accessory muscle use; other (fair air entry, prolonged exp, expiratory wheezes) Cardiovascular: regular rate-rhythm, S1 and S2, systolic murmur (faint CRISTIANO at card base) Gastrointestional: No tender; soft; No guarding, No rebound; audible bowel sounds, other (reducible, ventral abdominal hernia w/o any physical signs of o bstruction/incarceration at time of this exam) Extremities: No clubbing, No cyanosis, No significant edema Neurologic/Psychiatric: oriented x 3, other (moves all limbs equally) Skin: normal color, warm/dry Results/Procedures: Labs Laboratory Tests 03/29/19 02:39: White Blood Count 7.9, Red Blood Count 3.76L, Hemoglobin 10.8L, Hematocrit 35, Mean Corpuscular Volume 92, Mean Corpuscular Hemoglobin 29, Mean Corpuscular Hemoglobin Concent 31L, Red Cell Distribution Width 13.9, Platelet Count 132, Mean Platelet Volume 9.9, Neutrophils (%) (Auto) 77H, Lymphocytes (%) (Auto) 17, Monocytes (%) (Auto) 6, Eosinophils (%) (Auto) 0, Basophils (%) (Auto) 0, Neutrophils # (Auto) 6.1, Lymphocytes # (Auto) 1.4, Monocytes # (Auto) 0.5, Eosinophils # (Auto) 0.0, Basophils # (Auto) 0.0, Sodium Level 139, Potassium Level 4.7, Chloride Level 109H, Carbon Dioxide Level 24, Anion Gap 6, Blood Urea Nitrogen 31H, Creatinine 1.21, Estimat Glomerular Filtration Rate 43, BUN/Creatinine Ratio 26, Glucose Level 91, Calcium Level 8.2L, Phosphorus Level 3.2, Magnesium Level 2.2 Microbiology 03/22/19 Blood Culture - Final, Complete No growth 03/26/19 Mycobacterial Culture - Preliminary, Resulted Laboratory Tests 03/28/19 03:00 03/29/19 02:39 A/P: Assessment: Shortness of breath likely due to ac exac of COPD due to lower resp tract infection CAD. MPI on 03/24/19: basal inferior ischemia, normal wall motion, normal LVEF. Subsequent card cath of 03/25/19: mild to mod CAD, mild elevation of LVEDP CKD 3 Hypertension, by history Hyperlipidemia, by history Chronic tobacco use (approx 40 pack-years) that she quit in mid-Feb 2019 Ventral abdominal hernia Carotid arterial disease. S/p R CEA in [place]. Pt does not recall surgeon or year of surgery Plan: * No new cardiac issues * Monitor labs KARINE ALEXIS MD FACP [facility] Mar 29, 2019 16:47 POS
[2019-03-29] MEDS: clonazePAM 0.5 MG (KlonoPIN) TAB PO PRN (21:26)
[2019-03-29] MEDS ORDERED: NEBIVOLOL 5 MG TAB (BYSTOLIC) ONE (21:38)
[2019-03-29] MEDS: NEBIVOLOL 5 MG TAB (BYSTOLIC) PO SCH (21:40)
[2019-03-30] MEDS: RT-ALBUTEROL/IPRATROPIUM 3 ML (DUONEB) VIAL INH SCH ×6 (02:02→22:05)
[2019-03-30] MEDS: aCETylcysteine 20% (MUCOMYST) 30ML SOLN VIAL INH SCH ×6 (02:02→22:06)
[2019-03-30 03:13] VITALS: BP 136/66
[2019-03-30 04:18] LABS: BASOPHILS % (AUTO) 0 % (0-10); EOSINOPHILS % (AUTO) 0 % (0-10); HEMATOCRIT 35 % (35-52); HEMOGLOBIN 11.1 G/DL (11.5-16.0); LYMPHOCYTES # (AUTO) 1.5 X 10^3 (1.0-4.0); LYMPHOCYTES % (AUTO) 17 % (12-44); MEAN CORPUSCULAR HEMOGLOBIN 29 PG (25-34); MEAN CORPUSCULAR HGB CONC 32 G/DL (32-36); MEAN CORPUSCULAR VOLUME 93 FL (80-99); MEAN PLATELET VOLUME 10.3 FL (7.4-10.4); MONOCYTES # (AUTO) 0.5 X 10^3 (0.0-1.0); MONOCYTES % (AUTO) 6 % (0-12); NEUTROPHILS # (AUTO) 6.9 X 10^3 (1.8-7.8); NEUTROPHILS % (AUTO) 77 % (42-75); PLATELET COUNT 150 10^3/uL (130-400); RED CELL DISTRIBUTION WIDTH 13.8 % (10.0-14.5)
[2019-03-30 05:10] LABS: CALCIUM 8.4 MG/DL (8.5-10.1); CREATININE SERUM 1.23 MG/DL (0.60-1.30); MAGNESIUM 2.1 MG/DL (1.6-2.4); PHOSPHORUS 3.6 MG/DL (2.3-4.7); POTASSIUM 4.7 MMOL/L (3.6-5.0)
[2019-03-30] MEDS: predniSONE 20 MG TAB PO SCH (06:08)
[2019-03-30] MEDS: ENOXAPARIN 40 MG/0.4 ML (LOVENOX) SYR SC SCH (06:08)
[2019-03-30] MEDS: ACETAMINOPHEN 500 MG TAB (TYLENOL) PO PRN (06:09)
--- NOTE | 2019-03-30 07:43 | Diagnostic Imaging Report ---
INDICATION: Shortness of breath. TECHNIQUE: Single view chest 3:31 AM. CORRELATION STUDY: 03/29/2019 FINDINGS: Heart size is borderline enlarged. Vasculature overall improved at followup. Blunting left costophrenic angle compatible with pleural effusion. Some consolidation left lung base does persist. Also appears be some increasing or new infiltrate about the right upper lobe. Trace right pleural effusion. IMPRESSION: 1. Small pleural effusions left greater than right. Left basilar atelectasis and/or infiltrate with what appears be some new area of infiltrate right upper lobe. Dictated by: Dictated on workstation # [id number]
[2019-03-30 08:00] VITALS: BP 116/72
[2019-03-30] MEDS: CEFDINIR 300 MG (OMNICEF) CAP PO SCH ×2 (08:55→20:53)
[2019-03-30] MEDS: fluCOnazole (DIFLUCAN) 100 MG TAB PO SCH (08:55)
[2019-03-30] MEDS: FAMOTIDINE 20 MG (PEPCID) TABLET PO SCH (08:55)
[2019-03-30] MEDS: FUROSEMIDE 20 MG (LASIX) TAB PO SCH (08:56)
[2019-03-30] MEDS: ASPIRIN 81 MG CHEW (CHILDREN'S ASA) PO SCH (09:00)
[2019-03-30] MEDS: SENNA W/DOCUSATE (SENOKOT S) TABLET PO SCH ×2 (09:00→20:53)
[2019-03-30] MEDS: LACTULOSE SYRUP 10GM/15ML (ENULOSE) 30ML UDC PO SCH ×3 (09:00→20:56)
[2019-03-30] MEDS: ALLOPURINOL 100 MG (ZYLOPRIM) TAB PO SCH (09:00)
[2019-03-30] MEDS ORDERED: NON-FORMULARY MEDICATION 1 EA EA (Allopurinol 100 MG) PO SCH (09:00)
--- NOTE | 2019-03-30 10:38 | Pulmonary Progress Note ---
Sepsis Event Evaluation Height, Weight, BMI Height: '" Weight: lbs. oz. kg; 35.90 BMI Method: Exam Exam Vital Signs Date Time Temp Pulse Resp B/P (MAP) Pulse Ox O2 Delivery O2 Flow Rate FiO2 03/30/19 08:00 36.3 83 16 116/72 (87) 93 NIV Bilevel 03/30/19 07:09 96 Nasal Cannula 2.00 03/30/19 07:00 73 03/30/19 03:15 NIV Bilevel 40 03/30/19 03:13 36.1 91 24 136/66 (89) 96 NIV Bilevel 03/30/19 02:02 84 22 95 40.00 03/30/19 01:00 71 03/30/19 00:00 NIV Bilevel 40 03/29/19 23:51 36.6 85 24 146/76 (99) 99 NIV Bilevel 03/29/19 22:24 86 28 93 40.00 03/29/19 20:05 94 Nasal Cannula 2.00 03/29/19 20:05 Nasal Cannula 2.00 03/29/19 19:40 37.0 78 20 139/72 (94) 94 Nasal Cannula 2.00 03/29/19 19:06 Nasal Cannula 03/29/19 19:00 69 03/29/19 19:00 94 Nasal Cannula 2.00 03/29/19 16:00 36.3 79 16 134/72 (92) 95 Nasal Cannula 2.00 03/29/19 16:00 Nasal Cannula 2.00 03/29/19 14:48 93 Nasal Cannula 2.00 03/29/19 13:00 79 03/29/19 12:00 36.8 79 16 153/78 (103) 94 Nasal Cannula 2.00 03/29/19 12:00 Nasal Cannula 2.00 03/29/19 11:07 92 Nasal Cannula 2.00 I & O 03/30/19 07:00 Intake Total 1380 ml Output Total 2400 ml Balance -1020 ml Height & Weight Height: '" Weight: lbs. oz. kg; 35.90 BMI Method: General Appearance: Chronically ill HEENT: Normal ENT Inspection Neck: Non Tender, Limited Range of Motion Respiratory: Crackles, Decreased Breath Sounds, Wheezing Cardiovascular: Regular Rate, Rhythm, No Gallop, Systolic Murmur Capillary Refill: Less Than 3 Seconds Peripheral Pulses: 2+ Dorsalis Pedis (R), 2+ Left Dors-Pedis (L), 2+ Radial Pulses (R), 2+ Radial Pulses (L) Gastrointestinal: normal bowel sounds, non tender Extremity: Pedal Edema Neurologic/Psychiatric: Alert, Oriented x3, No Motor/Sensory Deficits, Normal Mood/Affect Skin: Normal Color, Warm/Dry Lymphatic: No Adenopathy Results Lab Laboratory Tests 03/29/19 02:39 03/30/19 04:06 Assessment/Plan Assessment/Plan COPDAE - has home 02 -Duonebs Q4, advair -oxygen - prednisone 40mg x 5 days then D/C - CT of chest without contrast - reviewed -Will repeat as out patient 8wks later. -Will plan for out pt PFT -Lasix 40 IV daily secondary to pulmonary edema Atelectasis with mucous plugging s/p bronchoscopy - Mucomyst - SVN, advair CP =s/p cath - neg Pneumonia with candidiasis -Start Diflucan x 7days then D/C - Omnicef x 3 days then D/C -Azithromycin PO -Will repeat CT of chest 8 wks after discharge. RALF with obesity -Will need home CPAP download -Pt has home CPAP ROBERTO KILGORE DO Mar 30, 2019 10:38 POS
[2019-03-30] MEDS: RT-ADVAIR HFA 115/21 MCG PER PUFF IH SCH ×2 (11:53→18:39)
[2019-03-30 12:06] VITALS: BP 128/78
--- NOTE | 2019-03-30 12:07 | Progress Note - Hospitalist ---
Subjective HPI/CC On Admission Date Seen by Provider: Mar 30, 2019 Time Seen by Provider: 11:45 Chief complaint: Hypoxia with dyspnea History of present illness: This is a 78-year-old white female clinic patient of Bethany Cuadra and Dr. Asher who presented to [facility] for complaints of shortness of breath with findings consistent with volume overload and an infiltrate on chest x-ray. Patient has not been hospitalized recently so she was placed on Rocephin and Zithromax along with nebulizer treatments and IV ster oids along with oxygen supplementation. Cardiology has been consulted for elevated BNP and will perform a stress test tomorrow. She does see nephrology in [place] on a regular basis. Patient will be placed on gentle IV fluids to optimize creatinine in case cardiac catheterization is required of which she has had to in the past. She appears to be very debilitated and lives with her daughter and granddaughter. She usually wears oxygen at night and as needed but she has been using her oxygen during the day the last couple of days. PT and OT will be ordered due to significant debility. She continues to smoke of which she says she is stopping now. Subjective/Events-last exam Patient is without complaint and is anxious to go home however she remains dyspneic with diffuse wheezing and rhonchi. She is pleasant and happy otherwise. She is without complaint Review of Systems Pulmonary: Dyspnea Objective Exam Vital Signs Vital Signs Date Time Temp Pulse Resp B/P (MAP) Pulse Ox O2 Delivery O2 Flow Rate FiO2 03/30/19 08:00 36.3 83 16 116/72 (87) 93 NIV Bilevel 03/30/19 08:00 2.00 03/30/19 03:15 40 Capillary Refill : Less Than 3 Seconds General Appearance: No Apparent Distress, WD/WN HEENT: Normal ENT Inspection Neck: Full Range of Motion, Normal Inspection, Non Tender, Supple Respiratory: Decreased Breath Sounds, Rales, Wheezing Cardiovascular: Regular Rate, Rhythm, No Gallop Gastrointestinal: Normal Bowel Sounds, Non Tender, Soft Rectal: Deferred Extremity: Pedal Edema Neurologic/Psychiatric: Alert, Oriented x3, No Motor/Sensory Deficits, Normal Mood/Affect, booking prizer II-XII Norm as Tested Skin: Normal Color, Warm/Dry Results/Procedures Lab Laboratory Tests 03/30/19 04:06 Patient resulted labs reviewed. Imaging: Reviewed Imaging Report Assessment/Plan Assessment and Plan Assess & Plan/Chief Complaint 1. Pneumonia on Cefdinir and 40 mg of prednisone-chest x-ray shows possible right upper lobe infiltrate that's new however the patient denies choking 2. Abnormal CT chest with adenopathy and pneumonia with recommendations for follow-up as an outpatient to make sure there is resolution-and her symptoms are not related to an underlying parenchymal lesion 3. Obstructive sleep apnea 4. History of hypertension-good control 5. Weakness and debility receiving physical therapy 6. COPD Discharge planning for Sunday or Sunday Clinical Quality Measures DVT/VTE Risk/Contraindication: Risk Factor Score Per Nursin RFS Level Per Nursing on Admit: 4+=Very High OPAL BENTON MD Mar 30, 2019 12:07 POS
--- NOTE | 2019-03-30 14:20 | Progress Note - Cardiology ---
Cardiology SOAP Progress Note Subjective: Shortness of breath with exertion No cp No palp or syncope Objective: I&O/Vital Signs 03/30/19 03/30/19 03/30/19 03/30/19 03:13 03:15 07:00 07:09 Temp 36.1 Pulse 91 73 Resp 24 B/P (MAP) 136/66 (89) Pulse Ox 96 96 O2 Delivery NIV Bilevel NIV Bilevel Nasal Cannula O2 Flow Rate 2.00 FiO2 40 03/30/19 03/30/19 03/30/19 03/30/19 08:00 08:00 08:00 12:06 Temp 36.3 36.5 Pulse 83 75 Resp 16 19 B/P (MAP) 116/72 (87) 128/78 (95) Pulse Ox 96 93 O2 Delivery Nasal Cannula Nasal Cannula NIV Bilevel O2 Flow Rate 2.00 2.00 03/30/19 03/30/19 13:00 13:28 Pulse 79 Pulse Ox 91 O2 Delivery Nasal Cannula O2 Flow Rate 2.00 03/30/19 00:00 Intake Total 1000 ml Output Total 1500 ml Balance -500 ml Constitutional: AAO x 3, well-developed, well-nourished Respiratory: No accessory muscle use; other (fair air entry, prolonged exp, expiratory wheezes) Cardiovascular: regular rate-rhythm, S1 and S2, systolic murmur (faint CRISTIANO at card base) Gastrointestional: No tender; soft; No guarding, No rebound; audible bowel sounds, other (reducible, ventral abdominal hernia w/o any physical signs of ob struction/incarceration at time of this exam) Extremities: No clubbing, No cyanosis, No significant edema Neurologic/Psychiatric: oriented x 3, other (moves all limbs equally) Skin: normal color, warm/dry Results/Procedures: Labs Laboratory Tests 03/30/19 04:06: White Blood Count 9.0, Red Blood Count 3.78L, Hemoglobin 11.1L, Hematocrit 35, Mean Corpuscular Volume 93, Mean Corpuscular Hemoglobin 29, Mean Corpuscular Hemoglobin Concent 32, Red Cell Distribution Width 13.8, Platelet Count 150, Mean Platelet Volume 10.3, Neutrophils (%) (Auto) 77H, Lymphocytes (%) (Auto) 17, Monocytes (%) (Auto) 6, Eosinophils (%) (Auto) 0, Basophils (%) (Auto) 0, Neutrophils # (Auto) 6.9, Lymphocytes # (Auto) 1.5, Monocytes # (Auto) 0.5, Eosinophils # (Auto) 0.0, Basophils # (Auto) 0.0, Sodium Level 139, Potassium Level 4.7, Chloride Level 107, Carbon Dioxide Level 22, Anion Gap 10, Blood Urea Nitrogen 27H, Creatinine 1.23, Estimat Glomerular Filtration Rate 42, BUN/Creatinine Ratio 22, Glucose Level 87, Calcium Level 8.4L, Phosphorus Level 3.6, Magnesium Level 2.1 Microbiology 03/22/19 Blood Culture - Final, Complete No growth 03/26/19 Mycobacterial Culture - Preliminary, Resulted Laboratory Tests 03/29/19 02:39 03/30/19 04:06 A/P: Assessment: Shortness of breath likely due to ac exac of COPD due to lower resp tract infection CAD. MPI on 03/24/19: basal inferior ischemia, normal wall motion, normal LVEF. Subsequent card cath of 03/25/19: mild to mod CAD, mild elevation of LVEDP CKD 3 Hypertension, by history Hyperlipidemia, by history Chronic tobacco use (approx 40 pack-years) that she quit in mid-Feb 2019 Ventral abdominal hernia Carotid arterial disease. S/p R CEA in [place]. Pt does not recall surgeon or year of surgery Plan: * Continue current regimen * I answered her CV-related questions * Monitor labs KARINE ALEXIS MD FACP [facility] Mar 30, 2019 14:20 POS
[2019-03-30 16:00] VITALS: BP 101/53
--- NOTE | 2019-03-30 17:00 | NUR ---
patient bumped hand on glove despensing box causing small superficial quarter size skin tear. Tegaderm, 2x2 and paper tape applied. scant amount of blood. patient denies any pain or discomfort.
[2019-03-30 20:00] VITALS: BP 132/83
[2019-03-30] MEDS: clonazePAM 0.5 MG (KlonoPIN) TAB PO PRN (20:53)
[2019-03-30] MEDS: NEBIVOLOL 5 MG TAB (BYSTOLIC) PO SCH (20:54)
[2019-03-30] MEDS ORDERED: NON-FORMULARY MEDICATION 1 EA EA (Nebivolol HCl (Bystolic) 10 MG) PO SCH (21:00)
[2019-03-31] VITALS: BP 120/72
[2019-03-31] MEDS: RT-ALBUTEROL/IPRATROPIUM 3 ML (DUONEB) VIAL INH SCH ×4 (01:57→15:39)
[2019-03-31] MEDS: aCETylcysteine 20% (MUCOMYST) 30ML SOLN VIAL INH SCH ×4 (01:59→15:39)
[2019-03-31 03:53] VITALS: BP 115/64
[2019-03-31 03:55] LABS: BASOPHILS % (AUTO) 0 % (0-10); EOSINOPHILS % (AUTO) 0 % (0-10); HEMATOCRIT 36 % (35-52); HEMOGLOBIN 11.4 G/DL (11.5-16.0); LYMPHOCYTES # (AUTO) 1.4 X 10^3 (1.0-4.0); LYMPHOCYTES % (AUTO) 14 % (12-44); MEAN CORPUSCULAR HEMOGLOBIN 30 PG (25-34); MEAN CORPUSCULAR HGB CONC 32 G/DL (32-36); MEAN CORPUSCULAR VOLUME 93 FL (80-99); MEAN PLATELET VOLUME 10.6 FL (7.4-10.4); MONOCYTES # (AUTO) 0.6 X 10^3 (0.0-1.0); MONOCYTES % (AUTO) 6 % (0-12); NEUTROPHILS # (AUTO) 8.1 X 10^3 (1.8-7.8); NEUTROPHILS % (AUTO) 79 % (42-75); PLATELET COUNT 159 10^3/uL (130-400); RED CELL DISTRIBUTION WIDTH 14.2 % (10.0-14.5); WHITE BLOOD COUNT 10.2 10^3/uL (4.3-11.0)
[2019-03-31 04:16] LABS: CALCIUM 8.3 MG/DL (8.5-10.1); CREATININE SERUM 1.53 MG/DL (0.60-1.30); MAGNESIUM 2.2 MG/DL (1.6-2.4); PHOSPHORUS 3.9 MG/DL (2.3-4.7); POTASSIUM 4.8 MMOL/L (3.6-5.0)
--- NOTE | 2019-03-31 04:52 | Pulmonary Progress Note ---
Sepsis Event Evaluation Height, Weight, BMI Height: '" Weight: lbs. oz. kg; 35.90 BMI Method: Exam Exam Vital Signs Date Time Temp Pulse Resp B/P (MAP) Pulse Ox O2 Delivery O2 Flow Rate FiO2 03/31/19 03:53 36.0 81 22 115/64 (81) 94 NIV Bilevel 03/31/19 03:18 Nasal Cannula 2.00 03/31/19 02:00 81 26 98 40.00 03/31/19 00:48 70 03/31/19 00:00 Nasal Cannula 2.00 03/31/19 00:00 36.0 82 20 120/72 (88) 96 NIV Bilevel 03/30/19 22:06 83 22 97 40.00 03/30/19 20:00 36.5 78 16 132/83 (99) 91 Nasal Cannula 2.00 03/30/19 20:00 Nasal Cannula 2.00 03/30/19 20:00 Nasal Cannula 2.00 03/30/19 19:00 83 03/30/19 18:44 Nasal Cannula 03/30/19 18:39 91 Nasal Cannula 2.00 03/30/19 16:00 Nasal Cannula 2.00 03/30/19 16:00 36.3 83 16 101/53 (69) 93 NIV Bilevel 03/30/19 13:28 91 Nasal Cannula 2.00 03/30/19 13:00 79 03/30/19 12:06 36.5 75 19 128/78 (95) 03/30/19 12:00 Nasal Cannula 2.00 03/30/19 08:00 36.3 83 16 116/72 (87) 93 NIV Bilevel 03/30/19 08:00 Nasal Cannula 2.00 03/30/19 08:00 96 Nasal Cannula 2.00 03/30/19 07:09 96 Nasal Cannula 2.00 03/30/19 07:00 73 I & O 03/31/19 07:00 Intake Total 1050 ml Output Total 1000 ml Balance 50 ml Height & Weight Height: '" Weight: lbs. oz. kg; 35.90 BMI Method: General Appearance: Chronically ill HEENT: Normal ENT Inspection Neck: Non Tender, Limited Range of Motion Respiratory: Crackles, Decreased Breath Sounds, Wheezing Cardiovascular: Regular Rate, Rhythm, No Gallop, Systolic Murmur Capillary Refill: Less Than 3 Seconds Peripheral Pulses: 2+ Dorsalis Pedis (R), 2+ Left Dors-Pedis (L), 2+ Radial Pulses (R), 2+ Radial Pulses (L) Gastrointestinal: normal bowel sounds, non tender Extremity: Pedal Edema Neurologic/Psychiatric: Alert, Oriented x3, No Motor/Sensory Deficits, Normal Mood/Affect Skin: Normal Color, Warm/Dry Lymphatic: No Adenopathy Results Lab Laboratory Tests 03/30/19 04:06 03/31/19 03:30 Assessment/Plan Assessment/Plan COPDAE - has home 02 -Duonebs Q4, advair -oxygen - restart prednisone 40mg x 5 days - Secondary to persistent but improving wheezing. -Give 125mg of Solumedrol x 1 - CT of chest without contrast - reviewed -Will repeat as out patient 8wks later. -Will plan for out pt PFT -Lasix 40 IV daily secondary to pulmonary edema Atelectasis with mucous plugging s/p bronchoscopy - Mucomyst - SVN, advair CP =s/p cath - neg Pneumonia with candidiasis -Start Diflucan x 7days then D/C - Omnicef x 3 days then D/C -Azithromycin PO -Will repeat CT of chest 8 wks after discharge. RALF with obesity -Will need home CPAP download -Pt has home CPAP ROBERTO KILGORE DO Mar 31, 2019 04:52 POS
[2019-03-31] MEDS ORDERED: methylPREDNISolone 125 MG (Solu-MEDROL) VIAL IVP ONE (05:00)
[2019-03-31] MEDS ORDERED: methylPREDNISolone 125 MG (Solu-MEDROL) VIAL ONE (05:02)
[2019-03-31] MEDS: ENOXAPARIN 40 MG/0.4 ML (LOVENOX) SYR SC SCH (06:12)
[2019-03-31] MEDS ORDERED: predniSONE 20 MG TAB PO SCH (07:00)
[2019-03-31 08:00] VITALS: BP 134/68
--- NOTE | 2019-03-31 08:16 | Diagnostic Imaging Report ---
Indication: Shortness of breath Portable chest 3:59 AM Heart size and pulmonary vascularity are normal. There are some basilar atelectasis with small pleural effusions. IMPRESSION: Bibasilar atelectasis with small pleural effusions. Changes in the left lung appear similar to the previous day. Changes of the right lung base have increased compared to the previous day. Dictated by: Dictated on workstation # [id number]
[2019-03-31] MEDS: FAMOTIDINE 20 MG (PEPCID) TABLET PO SCH (08:23)
[2019-03-31] MEDS: FUROSEMIDE 20 MG (LASIX) TAB PO SCH (08:23)
[2019-03-31] MEDS: ALLOPURINOL 100 MG (ZYLOPRIM) TAB PO SCH (08:24)
[2019-03-31] MEDS: ASPIRIN 81 MG CHEW (CHILDREN'S ASA) PO SCH (08:24)
[2019-03-31] MEDS: fluCOnazole (DIFLUCAN) 100 MG TAB PO SCH (08:24)
[2019-03-31] MEDS: SENNA W/DOCUSATE (SENOKOT S) TABLET PO SCH (08:25)
[2019-03-31] MEDS: LACTULOSE SYRUP 10GM/15ML (ENULOSE) 30ML UDC PO SCH (08:26)
--- NOTE | 2019-03-31 09:21 | Progress Note - Cardiology ---
Cardiology SOAP Progress Note Subjective: Denies any c/o CP or palpitations. Feels her SOB is unchanged. Objective: I&O/Vital Signs 03/30/19 03/31/19 03/31/19 03/31/19 22:06 00:00 00:00 00:48 Temp 36.0 Pulse 83 82 70 Resp 22 20 B/P (MAP) 120/72 (88) Pulse Ox 97 96 O2 Delivery NIV Bilevel Nasal Cannula O2 Flow Rate 40.00 2.00 03/31/19 03/31/19 03/31/19 03/31/19 02:00 03:18 03:53 07:00 Temp 36.0 Pulse 81 81 75 Resp 26 22 B/P (MAP) 115/64 (81) Pulse Ox 98 94 O2 Delivery Nasal Cannula NIV Bilevel O2 Flow Rate 40.00 2.00 03/31/19 03/31/19 03/31/19 03/31/19 07:54 08:00 08:00 08:00 Temp 36.6 Pulse 89 Resp 18 B/P (MAP) 134/68 (90) Pulse Ox 92 93 93 O2 Delivery Nasal Cannula Nasal Cannula Nasal Cannula Nasal Cannula O2 Flow Rate 2.00 2.00 2.00 2.00 03/31/19 00:00 Intake Total 750 ml Output Total 1000 ml Balance -250 ml Constitutional: AAO x 3, well-developed, well-nourished Respiratory: No accessory muscle use; other (fair air entry, prolonged exp) Cardiovascular: regular rate-rhythm, S1 and S2, systolic murmur (faint CRISTIANO at card base) Gastrointestional: No tender; soft; No guarding, No rebound; audible bowel sounds, other (reducible, ventral abdominal hernia w/o any physical signs of obstruction/incarceration at time of this exam) Extremities: No clubbing, No cyanosis, No significant edema Neurologic/Psychiatric: oriented x 3, other (moves all limbs equally) Skin: normal color, warm/dry; No rash on exposed areas, No ulcerations on expo sed areas Results/Procedures: Labs Laboratory Tests 03/31/19 03:30: White Blood Count 10.2, Red Blood Count 3.85L, Hemoglobin 11.4L, Hematocrit 36, Mean Corpuscular Volume 93, Mean Corpuscular Hemoglobin 30, Mean Corpuscular Hemoglobin Concent 32, Red Cell Distribution Width 14.2, Platelet Count 159, Mean Platelet Volume 10.6H, Neutrophils (%) (Auto) 79H, Lymphocytes (%) (Auto) 1 4, Monocytes (%) (Auto) 6, Eosinophils (%) (Auto) 0, Basophils (%) (Auto) 0, Neutrophils # (Auto) 8.1H, Lymphocytes # (Auto) 1.4, Monocytes # (Auto) 0.6, Eosinophils # (Auto) 0.0, Basophils # (Auto) 0.0, Sodium Level 140, Potassium Level 4.8, Chloride Level 107, Carbon Dioxide Level 22, Anion Gap 11, Blood Urea Nitrogen 31H, Creatinine 1.53H, Estimat Glomerular Filtration Rate 33, BUN/Creatinine Ratio 20, Glucose Level 94, Calcium Level 8.3L, Phosphorus Level 3.9, Magnesium Level 2.2 Microbiology 03/22/19 Blood Culture - Final, Complete No growth 03/26/19 Mycobacterial Culture - Preliminary, Resulted Laboratory Tests 03/30/19 04:06 03/31/19 03:30 Procedures NAME: TAMERA KRAMER [facility] REC#: [id number] PT STATUS: ADM IN : 1940 PHYSICIAN: ROBERTO KILGORE DO ADMIT DATE: 03/22/19/[facility] Signed Date of Exam: 03/31/19 CHEST 1 VIEW, AP/PA ONLY Indication: Shortness of breath Portable chest 3:59 AM Heart size and pulmonary vascularity are normal. There are some basilar atelectasis with small pleural effusions. IMPRESSION: Bibasilar atelectasis with small pleural effusions. Changes in the left lung appear similar to the previous day. Changes of the right lung base have increased compared to the previous day. Dictated by: Dictated on workstation # [id number] Dict: 03/31/19813 Trans: 03/31/19814 Interpreted by: NAMITA HUMMEL MD Electronically signed by: NAMITA HUMMEL MD 03/31/19814 A/P: Assessment: Shortness of breath likely due to ac exac of COPD due to lower resp tract infection CAD. MPI on 03/24/19: basal inferior ischemia, normal wall motion, normal LVEF. Subsequent card cath of 03/25/19: mild to mod CAD, mild elevation of LVEDP CKD 3 Hypertension, by history Hyperlipidemia, by history Chronic tobacco use (approx 40 pack-years) that she quit in mid-Feb 2019 Ventral abdominal hernia Carotid arterial disease. S/p R CEA in [place], [place]. Pt does not recall surgeon or year of surgery Plan: * Continue current regimen * I answered her CV-related questions * Monitor labs VINI PARTIDA Mar 31, 2019 09:21 POS
[2019-03-31] MEDS: RT-ADVAIR HFA 115/21 MCG PER PUFF IH SCH (09:51)
--- NOTE | 2019-03-31 10:44 | NUR ---
DISCHARGE PLANNING: This RN visited with patient. She reports that she is unsure of the plan for her. I told her that I was told she was going to move to fourth floor....she questioned "why cant I go home". Patient has o2 and CPAP at home..she lives in the back part of the home with her grandchild there to check on her. She has a cough..but she reports having that her whole life. No SW needs at this time.
--- NOTE | 2019-03-31 11:11 | NUR ---
RD FOLLOW-UP PMHx: COPD; CAD; HTN; stroke; renal failure; gout PT INTERACTION: Pt was awake and pleasant during nutrtion follow-up. Pt states current appetite is good and they have been eating well since last assessment. Note pt avg PO intake >75% x7d, per chart review. Pt states no recent issues with n/v/c/d at this time. Note last BM was 03/31 and pt currently on bowel regimen of senna, per chart review. ABNORMAL NUTRITION-RELATED LAB VALUES: BUN 31 (H); cr 1.53 (H); Ca 8.3 (L) Est. kcal needs: 0190-2942 kcal (15-20 kcal/kg) Est. Pro needs: 76-95 g Pro (0.8-1.0 g Pro/kg) PES STATEMENT: Given pt's current PO intake, no nutrition diagnosis at this time (NO-1.1) INTERVENTION: Continue with current diet order of Heart Healthy diet. MONITOR/EVALUATE: PO Intake; Plan of Care; Hydration Status; Weight Status; Lab Values Luis Banerjee, , RD, LD
[2019-03-31] MEDS ORDERED: FLUC100T6 PO (11:23)
[2019-03-31] MEDS ORDERED: RT-ALBUINH IH (11:23)
[2019-03-31] MEDS ORDERED: FLUT12AE4 IH (11:23)
[2019-03-31] MEDS ORDERED: PRD20T PO (11:23)
--- NOTE | 2019-03-31 11:40 | Occupational Ther Daily Note ---
OT Current Status-Daily Note Subjective Pt seen in recliner chair. Pt states no pain, but concern as pt was informed of move to 4th floor. Pt states she is confused why she would go down to fourth rather than home. Pt educated on difference of acute/ cardiac step down, pt nods in understanding but states she is going home before she is going to 4th. Pt agreeable to OT tx session. Mental Status/Objective Patient Orientation: Normal For Age Attachments: Oxygen ADL-Treatment Therapy Code Descriptions/Definitions Functional [place] Measure: 0=Not Assessed/NA 4=Minimal Assistance 1=Total Assistance 5=Supervision or Setup 2=Maximal Assistance 6=Modified [place] 3=Moderate Assistance 7=Complete IndependenceSCALE: Activities may be completed with or without assistive devices. 6-Bklussbhxx-emtzees completes the activity by him/herself with no assistance from a helper. 5-Set-up or Clean-up Assistance-helper sets up or cleans up; patient completes activity. [place] assists only prior to or following the activity. 4-Supervision or Touching Assistance-helper provides verbal cues and/or touching/steadying and/or contact guard assistance as patient completes activity. Assistance may be provided throughout the activity or intermittently. 3-Partial/Moderate Assistance-helper does LESS THAN HALF the effort. [place] lifts, holds or supports trunk or limbs, but provides less than half the effort. 2-Substantial/Maximal Assistance-helper does MORE THAN HALF the effort. [place] lifts or holds trunk or limbs and provides more than half the effort. 0-Xqqkujzyc-wkxfxy does ALL the effort. Patient does none of the effort to complete the activity. Or, the assistance of 2 or more helpers is required for the patient to complete the activity. If activity was not attempted, code reason: 7-Patient Refused. 9-Not Applicable-not attempted and the patient did not perform the activity before the current illness, exacerbation or injury. 10-Not Attempted due to Environmental Limitations-(lack of equipment, weather restraints, etc.). 88-Not Attempted due to Medical Conditions or Safety Concerns. Eating (QC): 6 Oral Hygiene (QC): 6 Shower/Bathe Self (QC): 6 (per pt report, pt has showered self and dressed with IND) Upper Body Dressing (QC): 6 Lower Body Dressing (QC): 6 (completes IND) Toileting Hygiene (QC): 6 Toilet Transfer (QC): 6 Other Treatment Pt completes ADLs in room without AE safely. Pt states she takes bath at home, grab bars present in shower per pt. Pt states she doesn't have concerns about going home as her daughter and grand daughter live in the front portion of her house and her daughter works close by if she is needed. Pt states she did not wear 02 at home prior, but did wear C-Pap. Pt states she smoked prior to hospitalization, pt educated on safety of 02 use and smoking hazards. Pt states she plans to cease smoking, but if she continues knows to not be near 02. Pt educated and return demonstrates diaphragmatic breathing techniques, pt educated on energy conservation techniques to complete within home/ outside of home. Pt agrees no more OT services needed. Pt agreeable to continue HEP, educated on benefits of continuation. Pt left in recliner chair, call light in reach, all needs met. Education OT Patient Education: Correct positioning, Energy conservation, Home exercise program, Progress toward Goal/Update tx plan, Purpose of tx/functional activities, Safety issues Teaching Recipient: Patient Teaching Methods: Demonstration, Discussion Response to Teaching: Verbalize Understanding, Return Demonstration OT Short Term Goals Short Term Goals 1=Demonstrate adherence to instructed precautions during ADL tasks. 2=Patient will verbalize/demonstrate understanding of assistive devices/modifications for ADL. 3=Patient will improve strength/tolerance for activity to enable patient to perform ADL's. OT Jail Goals Jail Goals Time Frame: Apr 01, 2019 Eating (QC): 6 (met) Oral Hygiene (QC): 6 (met) Shower/Bathe Self (QC): 5 (met) Upper Body Dressing (QC): 6 (met) Lower Body Dressing (QC): 6 (met) On/Off Footwear (QC): 6 (met) Toileting Hygiene (QC): 6 (met) Toilet/Commode Transfer (QC): 6 (met) Additional Goals: 1-Demonstrate ADL Tasks, 2-Verbalize Understanding, 3- ImproveStrength/[place] 1=Demonstrate adherence to instructed precautions during ADL tasks. 2=Patient will verbalize/demonstrate understanding of assistive devices/modifications for ADL. 3=Patient will improve strength/tolerance for activity to enable patient to perform ADL's. OT Education/Plan Problem List/Assessment Assessment: No Skilled OT Needs ID'd, Decreased Activ Tolerance Discharge Recommendations Plan/Recommendations: Discharge/Goals Met Equpiment Recommendations-D/C: None Patient/Family Goals Go home. Treatment Plan/Plan of Care Treatment,Training & Education: Yes Pt has met all OT goals and demonstrates safety within tasks. Plan of Care: ADL Retraining, Functional Mobility, UE Funct Exercise/Act Treatment Duration: Apr 01, 2019 Frequency: 5 times per week Estimated Hrs Per Day: .25 hour per day Rehab Potential: Fair Time/GCodes Start Time: 10:45 Stop Time: 10:58 Total Time Billed (hr/min): 13 Billed Treatment Time 1, ADL (13) JAYMIE PAULINO OTR Mar 31, 2019 11:40 POS
[2019-03-31 11:56] VITALS: BP 125/79
--- NOTE | 2019-03-31 12:32 | NUR ---
Pt given discharge instructions at this time. VSS prior to discharge. Pt is currently awaiting transportation at this time. Personal belongings packed in pt room at this time.
--- NOTE | 2019-03-31 13:13 | Discharge Instructions ---
Discharge [facility] Discharge Medications New, Converted or Re-Newed RX: Transmitted to Pharmacy New Medications: Albuterol Sulfate (Proair Hfa) 1 Puff Puff 2 PUFF IH Q4H PRN for SHORTNESS OF BREATH, #1 INHALER 0 Refills 1 PUFF = 90 MCG Fluconazole (Fluconazole) 100 Mg Tablet 100 MG PO DAILY for 5 Days, #5 TAB 0 Refills Fluticasone/Salmeterol (Advair Hfa 115-21 Mcg Inhaler) 12 Gm Hfa.aer.ad 2 PUFF IH BID@08,20, #1 INHALER 0 Refills Prednisone (Prednisone) 20 Mg Tab 40 MG PO DAILY@0700 for 4 Days, #8 TAB 0 Refills Continued Medications: Allopurinol (Allopurinol) 100 Mg Tablet 100 MG PO DAILY, TAB Atorvastatin Calcium (Atorvastatin Calcium) 80 Mg Tablet 80 MG PO HS, TAB Calcitriol (Calcitriol) 0.25 Mcg Capsule 0.25 MCG PO MoFr, CAP Clonazepam (Clonazepam) 0.5 Mg Tablet 0.5 MG PO HS PRN for ANXIETY, TAB Clopidogrel Bisulfate (Clopidogrel) 75 Mg Tablet 75 MG PO DAILY, TAB Diltiazem HCl (Cartia Xt) 300 Mg Cap.er.24h 300 MG PO HS, CAP Furosemide (Furosemide) 40 Mg Tablet 40 MG PO DAILY, TAB Irbesartan (Irbesartan) 300 Mg Tablet 300 MG PO DAILY, TAB Loratadine (Loratadine) 10 Mg Tablet 10 MG PO DAILY, TAB Nebivolol HCl (Bystolic) 10 Mg Tab 10 MG PO HS, TAB Patient Instructions Goal/Follow Up Appt: Follow up with Bethany Cuadra APRN on 04/04 at 1 pm. Follow up with Cardiology as recommended. Follow up with Dr. Day as directed. Activity & Diet Discharge Diet: Cardiac Diet Orders-Post D/C & Referrals Pneu Vac Indicated: Yes RICKI ALCARAZ MD Mar 31, 2019 11:25 POS
--- NOTE | 2019-03-31 13:14 | Discharge Summary ---
Discharge Summary Hospital Course Hospital Course Date of Admission: Mar 22, 2019 at 20:49 Admission Diagnosis : Pneumonia COPD exacerbation Family Physician/Provider: Bethany Cuadra Aprn Date of Discharge: 03/31/19 Discharge Diagnosis: 1. Pneumonia 2. Abnormal CT chest with adenopathy 3. Obstructive sleep apnea 4. History of hypertension-good control 5. Weakness and debility receiving physical therapy 6. COPD 7. CAD Hospital Course: 1. Pneumonia - treated with cefdinir x 5 days and fluconazole continued on d/c to complete course due to linda in bronch specimen. PO prednisone course. on C efdinir and 40 mg of prednisone. Requiring supplemental oxygen on d/c, but already had at home from prior. 2. Abnormal CT chest with adenopathy and pneumonia with recommendations for follow-up as an outpatient to make sure there is resolution. 3. Obstructive sleep apnea 4. History of hypertension-good control 5. Weakness and debility treated with PT 6. COPD 7. CAD. MPI on 03/24/19: basal inferior ischemia, normal wall motion, normal LVEF. Subsequent cardiac cath of 03/25/19: mild to mod CAD, mild elevation of LVEDP Labs and Pending Lab Test: Laboratory Tests 03/31/19 03:30: White Blood Count 10.2, Red Blood Count 3.85L, Hemoglobin 11.4L, Hematocrit 36, Mean Corpuscular Volume 93, Mean Corpuscular Hemoglobin 30, Mean Corpuscular Hemoglobin Concent 32, Red Cell Distribution Width 14.2, Platelet Count 159, Mean Platelet Volume 10.6H, Neutrophils (%) (Auto) 79H, Lymphocytes (%) (Auto) 14, Monocytes (%) (Auto) 6, Eosinophils (%) (Auto) 0, Basophils (%) (Auto) 0, Neutrophils # (Auto) 8.1H, Lymphocytes # (Auto) 1.4, Monocytes # (Auto) 0.6, Eosinophils # (Auto) 0.0, Basophils # (Auto) 0.0, Sodium Level 140, Potassium Level 4.8, Chloride Level 107, Carbon Dioxide Level 22, Anion Gap 11, Blood Urea Nitrogen 31H, Creatinine 1.53H, Estimat Glomerular Filtration Rate 33, BUN/Creatinine Ratio 20, Glucose Level 94, Calcium Level 8.3L, Phosphorus Level 3.9, Magnesium Level 2.2 Microbiology 03/22/19 Blood Culture - Final, Complete No growth 03/26/19 Mycobacterial Culture - Preliminary, Resulted Home Meds Active Proair Hfa (Albuterol Sulfate) 1 Puff Puff 2 Puff IH Q4H PRN 1 PUFF = 90 MCG Prednisone 20 Mg Tab 40 Mg PO DAILY@0700 4 Days Advair Hfa 115-21 Mcg Inhaler (Fluticasone/Salmeterol) 12 Gm Hfa.aer.ad 2 Puff IH BID@08,20 Fluconazole 100 Mg Tablet 100 Mg PO DAILY 5 Days Reported Loratadine 10 Mg Tablet 10 Mg PO DAILY Bystolic (Nebivolol HCl) 10 Mg Tab 10 Mg PO HS Clonazepam 0.5 Mg Tablet 0.5 Mg PO HS PRN Allopurinol 100 Mg Tablet 100 Mg PO DAILY Atorvastatin Calcium 80 Mg Tablet 80 Mg PO HS Furosemide 40 Mg Tablet 40 Mg PO DAILY Calcitriol 0.25 Mcg Capsule 0.25 Mcg PO MOFR Clopidogrel (Clopidogrel Bisulfate) 75 Mg Tablet 75 Mg PO DAILY Irbesartan 300 Mg Tablet 300 Mg PO DAILY Cartia Xt (Diltiazem HCl) 300 Mg Cap.er.24h 300 Mg PO HS Assessment/Pt DC Instructions See separate d/c instructions Orders-Post D/C & Referrals Pneu Vac Indicated: Yes Discharge Physical Examination Allergies: Coded Allergies: No Known Drug Allergies (Unverified , 03/20/19) General Appearance: No Apparent Distress, WD/WN Respiratory: Lungs Clear, Normal Breath Sounds Cardiovascular: Regular Rate, Rhythm, No Murmur Skin: Normal Color, Warm/Dry Neurologic/Psychiatric: Alert, Normal Mood/Affect Copy Copies To 1: Bethany Cuadra APRN Discharge Summary Date of Admission Mar 22, 2019 at 20:49 Date of Discharge Discharge Date: Mar 31, 2019 Admission Diagnosis Assessment: AECOPD Pneumonia ARF on CRI sees Nephrology Fareed HTN Smoker current Debility lives with daughter Plan: Appreciate Talat Day and Salo Monitor creatinine EST tomorrow O2 Nebs IV steroids IV abx Discharge Diagnosis (1) Hypoxia Status: Acute (2) COPD with exacerbation Status: Acute (3) Chronic renal disease (4) Renal failure (ARF), acute on chronic Clinical Quality Measures DVT/VTE Risk/Contraindication: Risk Factor Score Per Nursin RFS Level Per Nursing on Admit: 4+=Very High RICKI ALCARAZ MD Mar 31, 2019 13:14 POS
[2019-03-31 16:00] VITALS: BP 115/68
--- NOTE | 2019-03-31 17:22 | NUR ---
IV removed from right upper arm at this time. Pt transferred via wheelchair at this time to personal car. Personal belongings with pt at this time. Discharge instructions with pt also during this time.
== END 2019-03-31 17:30 | disposition home or self-care (01) | DRG 178 ==
LOC: ER FS 18:48 → EDUNIT# 18:48 → CSD 20:49
PROVIDERS: ADMIT Internal Medicine; ATTEND Family Medicine
PROC: 4A023N7 Measurement of Cardiac Sampling and Pressure, Left Heart, Percutaneous Approach (ICD-10-PCS; principal; 2019-03-25)
PROC: B2111ZZ Fluoroscopy of Multiple Coronary Arteries using Low Osmolar Contrast (ICD-10-PCS; 2019-03-25)
PROC: 0BC38ZZ Extirpation of Matter from Right Main Bronchus, Via Natural or Artificial Opening Endoscopic (ICD-10-PCS; 2019-03-26)
PROC: 0BC78ZZ Extirpation of Matter from Left Main Bronchus, Via Natural or Artificial Opening Endoscopic (ICD-10-PCS; 2019-03-26)
DX: B37.1 Pulmonary candidiasis (principal); J44.0 Chronic obstructive pulmonary disease with (acute) lower respiratory infection; J44.1 Chronic obstructive pulmonary disease with (acute) exacerbation; I12.9 Hypertensive chronic kidney disease with stage 1 through stage 4 chronic kidney disease, or unspecified chronic kidney disease; N18.3 Chronic kidney disease, stage 3 (moderate); R09.02 Hypoxemia; J98.09 Other diseases of bronchus, not elsewhere classified; J98.11 Atelectasis; N17.9 Acute kidney failure, unspecified; F17.210 Nicotine dependence, cigarettes, uncomplicated; I25.10 Atherosclerotic heart disease of native coronary artery without angina pectoris; G47.33 Obstructive sleep apnea (adult) (pediatric); E66.9 Obesity, unspecified; Z68.35 Body mass index [BMI] 35.0-35.9, adult; F41.9 Anxiety disorder, unspecified; M10.9 Gout, unspecified; K59.00 Constipation, unspecified; K43.9 Ventral hernia without obstruction or gangrene; Z86.73 Personal history of transient ischemic attack (TIA), and cerebral infarction without residual deficits; Z95.5 Presence of coronary angioplasty implant and graft; Z99.81 Dependence on supplemental oxygen; I25.2 Old myocardial infarction; R93.89 Abnormal findings on diagnostic imaging of other specified body structures; R59.0 Localized enlarged lymph nodes
CPT/HCPCS: 36415; 71045; 71250; 76937; 78452; 80048; 80053; 80061; 82805; 83605; 83735; 83880; 84100; 84443; 84484; 85007; 85025; 85027; 85610; 85730; 87015; 87040; 87070; 87101; 87106; 87116; 87205; 87206; 87804; 93005; 93017; 93306; 93458; 94640; 94660; 94760

== ENCOUNTER → 2019-05-23 | Outpatient (CLI) | payer MEDICARE, OTHER ==
[~2019-05-23] MED LIST changes: +FLUC100T6 PO; +FLUT12AE4 IH; +PRD20T PO; +RT-ALBUINH IH; +RT-ALBUTEROL SULF 2.5 MG/3 ML PRE-MIX VIAL INH ONE
[2019-05-23 10:20] LABS: CREATININE SERUM 1.4 MG/DL (0.60-1.30)
--- NOTE | 2019-05-23 11:50 | Diagnostic Imaging Report ---
PROCEDURE: CT chest without contrast. TECHNIQUE: Multiple contiguous axial images were obtained through the chest without the use of intravenous contrast. Auto Exposure Controls were utilized during the CT exam to meet ALARA standards for radiation dose reduction. INDICATION: Coughing. COMPARISON: March 23, 2019. FINDINGS: Multiple calcified hilar and mediastinal lymph nodes are again identified. Enlarged mediastinal lymph nodes are also again identified, not significantly changed from prior imaging. This includes a 2.4 x 1.0 cm right paratracheal lymph node, a 1.6 x 1.1 cm prevascular lymph node, and a 4.3 x 1.6 cm subcarinal lymph node. No definite new adenopathy, though evaluation is slightly limited secondary to lack of intravenous contrast. Mild scattered vascular calcifications, particularly within the coronary arteries. Advanced mitral valve calcifications. The heart is within normal limits in size. Trace pericardial effusion. No significant pleural effusion. Tiny hiatal hernia. No pneumothorax. Mild background emphysematous changes, greatest within the upper lobes. Calcified granuloma are present in the lungs bilaterally. Scattered regions of tree-in-bud nodularity are again noted bilaterally. This includes within the left upper lobe axial image 31 and throughout the right midlung. These regions do not appear significantly changed since prior examination. Previously noted peribronchial thickening with reticular opacities within the left lower lobe and lingula have essentially resolved since the prior examination with minimal persisting scarring and/or atelectasis. Persistent peribronchial thickening with mucous plugging within the right lower lobe with developing minimal tree-in-bud nodularity. Nonobstructing transverse colon containing supraumbilical midline anterior abdominal wall hernia. Cholecystectomy.. Calcified splenic and hepatic granuloma. Vascular stent within the left renal artery. No acute osseous abnormality. IMPRESSION: Persistent tree-in-bud nodularity within the bilateral lungs, likely related to small airways or small vessel infection and inflammation. Given appearance within the right upper lobe, this may simply relate to underlying chronic granulomatous disease. Significantly improved and essentially resolved opacification and peribronchial thickening within the left lung base with minimal persistent scarring and atelectasis. Mild peribronchial thickening and mucous plugging within the right lower lobe with new mild tree-in-bud nodularity. Mild background emphysematous changes. Evidence of chronic granulomatous disease. Stable mediastinal adenopathy. This is of uncertain etiology. This could relate to underlying granulomatous disease, though additional infiltrative process not excluded. Recommend continued follow-up. Nonobstructing transverse colon containing supraumbilical midline anterior abdominal wall hernia. Dictated by: Dictated on workstation # [id number]
== END ==
LOC: RT 09:49
PROVIDERS: ATTEND Nurse Practitioner Family
DX: J43.9 Emphysema, unspecified (principal); J84.10 Pulmonary fibrosis, unspecified; K43.9 Ventral hernia without obstruction or gangrene; J98.11 Atelectasis; R91.8 Other nonspecific abnormal finding of lung field; R59.0 Localized enlarged lymph nodes; E66.9 Obesity, unspecified; G47.33 Obstructive sleep apnea (adult) (pediatric); G47.36 Sleep related hypoventilation in conditions classified elsewhere; Z90.49 Acquired absence of other specified parts of digestive tract; Z72.0 Tobacco use
CPT/HCPCS: 36415; 71250; 82565; 84520

== ENCOUNTER 2019-06-26 19:58 | Outpatient (CLI) | payer MEDICARE, OTHER ==
[~2019-06-26 19:58] MED LIST changes: -CLON0.5T13 PO; +CLON0.5T4 PO; -RT-ALBUTEROL SULF 2.5 MG/3 ML PRE-MIX VIAL INH ONE
== END 2019-06-27 07:02 | disposition home or self-care (01) ==
LOC: SLEEP 19:58
PROVIDERS: ATTEND Nurse Practitioner Family
DX: G47.33 Obstructive sleep apnea (adult) (pediatric) (principal); G47.36 Sleep related hypoventilation in conditions classified elsewhere; J44.9 Chronic obstructive pulmonary disease, unspecified; E66.9 Obesity, unspecified; Z68.39 Body mass index [BMI] 39.0-39.9, adult; Z72.0 Tobacco use; Z80.9 Family history of malignant neoplasm, unspecified
CPT/HCPCS: 95811

== ENCOUNTER 2019-07-31 14:30 | Outpatient (RCR) | payer MEDICARE, OTHER ==
[2019-06-05 14:10] VITALS: BP 141/70
[2019-06-05 15:52] VITALS: BP 140/80
[2019-06-10 14:30] VITALS: BP 130/80
[2019-06-10 15:20] VITALS: BP 150/60
[2019-06-12 14:20] VITALS: BP 120/80
[2019-06-12 15:05] VITALS: BP 120/73
[2019-06-17 14:20] VITALS: BP 120/70
[2019-06-17 15:20] VITALS: BP 120/70
[2019-06-19 14:25] VITALS: BP 130/60
[2019-06-19 15:19] VITALS: BP 120/60
[2019-06-24 14:25] VITALS: BP 121/58
[2019-06-24 15:15] VITALS: BP 140/68
[2019-07-01 14:30] VITALS: BP 148/60
[2019-07-01 15:25] VITALS: BP 120/60
[2019-07-03 14:27] VITALS: BP 150/60
[2019-07-03 15:40] VITALS: BP 128/60
[2019-07-08 13:18] VITALS: BP 130/60
[2019-07-08 14:10] VITALS: BP 130/60
[2019-07-10 13:58] VITALS: BP 140/70
[2019-07-15 14:30] VITALS: BP 128/70
[2019-07-15 15:35] VITALS: BP 115/50
[2019-07-24 14:30] VITALS: BP 130/60
[2019-07-29 14:30] VITALS: BP 150/60
[2019-07-29 15:30] VITALS: BP 125/60
[~2019-07-31 14:30] MED LIST changes: +IRBE300T17 PO; -IRBE300T18 PO
[2019-07-31 14:35] VITALS: BP 150/60
[2019-07-31 15:28] VITALS: BP 130/50
[2019-08-07 13:40] VITALS: BP 145/60
[2019-08-07 14:30] VITALS: BP 121/60
== END 2019-08-26 | disposition home or self-care (01) ==
LOC: PULM 14:30
PROVIDERS: ATTEND Nurse Practitioner Family
DX: E66.9 Obesity, unspecified (principal); J44.9 Chronic obstructive pulmonary disease, unspecified; Z72.0 Tobacco use
CPT/HCPCS: 94060; 94726; 94729; 99211

== ENCOUNTER → 2019-09-25 | Outpatient (CLI) | payer MEDICARE, OTHER ==
[2019-09-25 11:14] LABS: BASOPHILS % (AUTO) 0 % (0-10); EOSINOPHILS # (AUTO) 0.1 10^3/uL (0.0-0.3); EOSINOPHILS % (AUTO) 1 % (0-10); HEMATOCRIT 40 % (35-52); HEMOGLOBIN 12.8 G/DL (11.5-16.0); LYMPHOCYTES # (AUTO) 1.2 X 10^3 (1.0-4.0); LYMPHOCYTES % (AUTO) 18 % (12-44); MEAN CORPUSCULAR HEMOGLOBIN 28 PG (25-34); MEAN CORPUSCULAR HGB CONC 32 G/DL (32-36); MEAN CORPUSCULAR VOLUME 87 FL (80-99); MEAN PLATELET VOLUME 10.2 FL (7.4-10.4); MONOCYTES # (AUTO) 0.4 X 10^3 (0.0-1.0); MONOCYTES % (AUTO) 6 % (0-12); NEUTROPHILS # (AUTO) 5.3 X 10^3 (1.8-7.8); NEUTROPHILS % (AUTO) 75 % (42-75); PLATELET COUNT 209 10^3/uL (130-400); RED CELL DISTRIBUTION WIDTH 15.4 % (10.0-14.5)
[2019-09-25 11:38] LABS: ALBUMIN 3.7 GM/DL (3.2-4.5); BILIRUBIN,TOTAL 0.6 MG/DL (0.1-1.0); CALCIUM 9.2 MG/DL (8.5-10.1); CREATININE SERUM 1.22 MG/DL (0.60-1.30); MAGNESIUM 1.9 MG/DL (1.6-2.4); TOTAL PROTEIN 6.2 GM/DL (6.4-8.2)
[2019-09-25 11:57] LABS: ERYTHROCYTE SEDIMENTATION RATE 21 MM/HR (0-30)
== END ==
LOC: CARD 10:54
PROVIDERS: ATTEND Internal Medicine Cardiovascular Disease
DX: I65.23 Occlusion and stenosis of bilateral carotid arteries (principal); I10 Essential (primary) hypertension; I27.21 Secondary pulmonary arterial hypertension; J43.8 Other emphysema; G47.33 Obstructive sleep apnea (adult) (pediatric); Z72.0 Tobacco use; I08.1 Rheumatic disorders of both mitral and tricuspid valves
CPT/HCPCS: 36415; 80053; 80061; 83735; 84443; 85025; 85652; 93306

== ENCOUNTER → 2019-12-01 | Outpatient (CLI) | payer MEDICARE, OTHER ==
[2019-12-01 08:30] LABS: CREATININE SERUM 1.48 MG/DL (0.60-1.30)
--- NOTE | 2019-12-01 18:09 | Diagnostic Imaging Report ---
PROCEDURE: CT chest without contrast. TECHNIQUE: Multiple contiguous axial images were obtained through the chest without the use of intravenous contrast. Auto Exposure Controls were utilized during the CT exam to meet ALARA standards for radiation dose reduction. INDICATION: Pulmonary infiltrate, follow-up CORRELATION: 05/23/2019 FINDINGS: Evaluation of the mediastinal structures is limited. However, there is again demonstration of a rather prominent in number mediastinal lymph nodes to be present. Largest right posterior lateral paratracheal lymph node 2.3 x 0.9 cm, 2.4 x 1.0 cm. Anterior mediastinal lymph node, 1.6 x 1.1 cm, previously 1.6 x 1.1 cm, stable. Subcarinal lymph node 3.9 x 1.7 cm, previously 4.3 x 1.6 cm. Several of the mediastinal and hilar lymph nodes are again noted to be calcified. Heart size upper limits of normal. Rather prominent calcification of the mitral valve. Trace pericardial effusion. Scattered coronary artery calcification. Thoracic aortic contour unremarkable. Very small hiatal hernia present. Partially visualized thyroid gland unremarkable. Multiple scattered calcified granulomas are present. This includes more focal regional distribution of the lateral right upper lobe. No concerning pulmonary mass. There is mild emphysematous change about the lung parenchyma. Small left pleural effusion has developed. Cholecystectomy changes. There is partial visualization of a superior midline abdominal wall hernia containing portion of the transverse colon. Calcified granulomas with a partially visualized spleen and liver. Mildly advanced degenerative changes with an accentuated thoracic kyphosis of the thoracic spine. IMPRESSION: Negative for acute abnormality of the chest. Largely chronic findings including prior granulomatous disease to be present. No acute abnormality or consolidating infiltrate. There has been development of a small left pleural effusion, layering dependently. Dictated by: Dictated on workstation # [id number]
== END ==
LOC: RAD 07:46
PROVIDERS: ATTEND Internal Medicine Critical Care Medicine
DX: G47.33 Obstructive sleep apnea (adult) (pediatric) (principal); G47.36 Sleep related hypoventilation in conditions classified elsewhere; J44.9 Chronic obstructive pulmonary disease, unspecified; R91.8 Other nonspecific abnormal finding of lung field; R09.02 Hypoxemia; Z72.0 Tobacco use; J90 Pleural effusion, not elsewhere classified; Z90.49 Acquired absence of other specified parts of digestive tract
CPT/HCPCS: 36415; 71250; 82330; 82565; 84520

== ENCOUNTER → 2021-01-11 | Outpatient (CLI) | payer MEDICARE, OTHER ==
[~2021-01-11] MED LIST changes: +DILT300C52 PO; +FLUT1DIS26 IH; +SULF1TAB38 PO
[2021-01-11 13:56] LABS: CREATININE SERUM 1.58 MG/DL (0.60-1.30)
--- NOTE | 2021-01-11 15:33 | Diagnostic Imaging Report ---
PROCEDURE: US Venous Lower Ext [place]. TECHNIQUE: Multiple real-time grayscale images were obtained over the lower extremities in various projections, bilaterally. Additional duplex Doppler and color Doppler images were also obtained. INDICATION: Shortness of breath and bilateral lower extremity edema and pain. There is no evidence of right or left lower extremity DVT. Both lower extremity deep venous system showed normal compressibility with normal response to augmentation and Valsalva. There is fluid collection in the popliteal fossa on the left measuring 3.2 x 1.2 x 3.1 cm consistent with a popliteal cyst. IMPRESSION: 1. No evidence of right or left lower extremity DVT. 2. Left-sided popliteal cyst. Dictated by: Dictated on workstation # [id number]
--- NOTE | 2021-01-11 15:39 | Diagnostic Imaging Report ---
PROCEDURE: CT chest without contrast. TECHNIQUE: Multiple contiguous axial images were obtained through the chest without the use of intravenous contrast. Auto Exposure Controls were utilized during the CT exam to meet ALARA standards for radiation dose reduction. INDICATION: Dyspnea. COMPARISON: 12/01/2019 and 03/23/2019. FINDINGS: Mildly enlarged mediastinal and hilar lymph nodes are again identified. These appear stable from the prior examinations. The subcarinal lymph node actually appears slightly decreased in size when compared to the prior examination from March 2019, measuring 3.7 x 1.8 cm when previously it measured 4.7 x 2.0 cm. No definite new or increasing adenopathy within the chest. Calcified mediastinal and hilar lymph nodes are again noted. Scattered vascular calcifications without aneurysmal dilatation of the thoracic aorta. The heart is within normal limits in size. No significant pericardial effusion. Moderate-sized dependently layering left-sided pleural effusion is present with significant amount of adjacent ground-glass and dense opacities within the left lung, including significant volume loss within the lingula and left lower lobe. These findings have worsened since the prior examination. Small dependently layering right-sided pleural effusion is also present with adjacent atelectasis. This has worsened since the prior examination. Calcified granuloma are present within the lungs bilaterally. [id number] background emphysematous changes. Tree-in-bud nodularity within the right upper lobe is unchanged since 2019, and felt to be benign. 0.4 cm right lower lobe pulmonary nodules are unchanged since March 2019, felt to be benign. The trachea is patent. Tiny hiatal hernia. Nonobstructing transverse colon containing midline anterior abdominal wall hernia is partially visualized. Calcified hepatic and splenic granuloma. Cholecystectomy. No acute osseous abnormality with scattered osseous degenerative changes present. IMPRESSION: Moderate left and small right dependently layering pleural effusion with adjacent atelectasis. Additional infiltrate within the left lung base is suspected. Mediastinal and hilar adenopathy, appearing stable from the prior examination. The largest subcarinal lymph node has actually decreased in size since 2019. Evidence of chronic granulomatous disease. Nonobstructing colon-containing midline anterior abdominal wall hernia. [id number]-[id number] background emphysematous changes. Dictated by: Dictated on workstation # [id number]
== END ==
LOC: RAD 14:00
PROVIDERS: ATTEND Nurse Practitioner Family
DX: Z03.89 Encounter for observation for other suspected diseases and conditions ruled out (principal); J43.9 Emphysema, unspecified; K43.9 Ventral hernia without obstruction or gangrene; D71 Functional disorders of polymorphonuclear neutrophils; J90 Pleural effusion, not elsewhere classified; M71.22 Synovial cyst of popliteal space [Baker], left knee
CPT/HCPCS: 36415; 71250; 82565; 84520; 93970

== ENCOUNTER 2021-01-12 15:23 | Inpatient (IN) | payer MEDICARE, OTHER ==
[~2021-01-12] VITALS: Ht 162.6 cm; Wt 93.2 kg
[~2021-01-12 15:23] MED LIST changes: -DILT300C52 PO; -FLUT1DIS26 IH; -SULF1TAB38 PO
[2021-01-12 16:47] LABS: BASOPHILS % (AUTO) 1 % (0-10); EOSINOPHILS # (AUTO) 0.4 10^3/uL (0.0-0.3); EOSINOPHILS % (AUTO) 6 % (0-10); HEMATOCRIT 43 % (35-52); HEMOGLOBIN 13.3 g/dL (11.5-16.0); LYMPHOCYTES % (AUTO) 14 % (12-44); MEAN CORPUSCULAR HEMOGLOBIN 29 pg (25-34); MEAN CORPUSCULAR HGB CONC 31 g/dL (32-36); MEAN CORPUSCULAR VOLUME 93 fL (80-99); MEAN PLATELET VOLUME 10.3 fL (9.0-12.2); MONOCYTES # (AUTO) 0.4 10^3/uL (0.0-1.0); MONOCYTES % (AUTO) 6 % (0-12); NEUTROPHILS % (AUTO) 73 % (42-75); PLATELET COUNT 209 10^3/uL (130-400); WHITE BLOOD COUNT 6.8 10^3/uL (4.3-11.0)
[2021-01-12 17:04] LABS: ALBUMIN 3.8 GM/DL (3.2-4.5); POTASSIUM 3.8 MMOL/L (3.6-5.0)
[2021-01-12 17:05] LABS: CALCIUM 9.5 MG/DL (8.5-10.1)
[2021-01-12 17:06] LABS: TOTAL PROTEIN 6.6 GM/DL (6.4-8.2)
[2021-01-12 17:07] LABS: ABG BASE EXCESS -1.9 MMOL/L (-2.5-2.5); ABG OXYGEN SATURATION 94 % (94-100); ABG PCO2 46 MMHG (35-45); ABG PO2 77 MMHG (79-93); ABG TCO2 24.7 MMOL/L (21.0-31.0)
[2021-01-12 17:08] LABS: BILIRUBIN,TOTAL 0.4 MG/DL (0.1-1.0)
[2021-01-12 17:09] LABS: ABG PH 7.33 (7.37-7.43); PATIENT TEMP 36.7; VENTILATOR NO
[2021-01-12 17:10] LABS: CREATININE SERUM 1.71 MG/DL (0.60-1.30)
--- NOTE | 2021-01-12 17:12 | Pulmonary Consultation ---
History of Present Illness History of Present Illness Date Seen by Provider: Jan 12, 2021 Time Seen by Provider: 17:09 Date of Admission Patient(s) acknowledged, consented and participated in this virtual visit which was conducted using secure real time audio and video. Has bilateral pleural effusions, also a enlarged sub carinal present since 2019. 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 no wheezing PMH has stent in kidneys for has HTN, no DM, no HLD, recent doppler legs neg for DVT Echo 07/11 has pulmonary hypertension with estimated SPAP 64 2019 lexiscan showed mild ischemia Got Covid vaccine Taking Advair, Proair, lasix Reason for Visit: SOB History of Present Illness Patient(s) acknowledged, consented and participated in this virtual visit which was conducted using secure real time audio and video. Has bilateral pleural effusions, also a enlarged sub carinal present since 2019. 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 no wheezing PMH has stent in kidneys for has HTN, no DM, no HLD, recent doppler legs neg for DVT Echo 07/11 has pulmonary hypertension with estimated SPAP 64 2019 lexiscan showed mild ischemia Got Covid vaccine Taking Advair, Proair, lasix Allergies and Home Medications Allergies Coded Allergies: No Known Drug Allergies (Unverified , 03/20/19) Home Medications Allopurinol 100 Mg Tablet, 50 MG PO DAILY, (Reported) TAKES OF A 100MG TAB Atorvastatin Calcium 80 Mg Tablet, 80 MG PO HS, (Reported) Clonazepam 0.5 Mg Tablet, 0.5 MG PO HS, (Reported) Diltiazem HCl 300 Mg Cap.er.24h, 300 MG PO HS, (Reported) Fluticasone/Salmeterol 1 Each Blst.w.dev, 1 EACH IH BID, (Reported) Furosemide 40 Mg Tablet, 40 MG PO DAILY, (Reported) Irbesartan 300 Mg Tablet, 300 MG PO DAILY, (Reported) Loratadine 10 Mg Tablet, 10 MG PO DAILY, (Reported) Nebivolol HCl 10 Mg Tab, 10 MG PO HS, (Reported) Sulfamethoxazole/Trimethoprim 1 Each Tablet, 1 EA PO BID, (Reported) FILLED 01-10-2021 #6/3 DAY SUPPLY Past Medical/Social/Family Hx Patient Social History Tobacco Use?: Yes Tobacco type used: Cigarettes Smoking Status: Light Tobacco Smoker Substance use?: No Alcohol Use?: No Pt stated abuse/neglect: No Immunizations Up To Date Second COVID19 Vaccination Beck: NA Current Status status: No status: No Advance Directives: No Primary Language: Swedish Preferred Spoken Language: Swedish Is interpretation needed?: No Review of Systems Constitutional: see HPI Respiratory: dyspnea on exertion Cardiovascular: edema Sepsis Event Evaluation Height, Weight, BMI Height: '" Weight: 205lbs. 8.0oz. kg; 40.00 BMI Method: Exam Exam Patient acknowledged, consented, and participated in this virtual visit which was conducted using real time audio/video Vital Signs Date Time Temp Pulse Resp B/P (MAP) Pulse Ox O2 Delivery O2 Flow Rate FiO2 01/12/21 16:43 96 Nasal Cannula 5.00 01/12/21 15:45 36.7 68 22 124/70 (88) 96 Nasal Cannula 5.00 Height & Weight Height: '" Weight: 205lbs. 8.0oz. kg; 40.00 BMI Method: General Appearance: Mild Distress Capillary Refill: Less Than 3 Seconds Results Lab Laboratory Tests 01/12/21 16:40 Assessment/Plan Assessment/Plan Abnormal findings on diagnostic imaging of lung - Has bilateral pleural effusions, much worse on left, with compressive atelectasis of left lung Given size of effusions, degree of hypoxia I think she should be admitted for diagnositic and theraputic thoracentesis, I reviewed V/Q scan done today, I don't see any big mismatch Spoke with ED attending, pt and pt's daughter about plan. I am concerned about malignant effusion but also CHF, R91.8: Other nonspecific abnormal finding of lung field Time spent with patient (mins): 30 WADE GARDNER MD Jan 12, 2021 17:12
--- NOTE | 2021-01-12 17:31 | ED Respiratory ---
General Chief Complaint: Respiratory Problems Stated Complaint: SOB, HYPOXIA Nursing Triage Note: PT DIAGNOSED WITH PLEURAL EFFUSION BY PCM, REFERRED BY PCM TO ED FOR TREATMENT. PT RECENTLY PLACED ON FULL-TIME OXYGEN. Source: patient, family Exam Limitations: no limitations (ROBI KOHLER MD) History of Present Illness Date Seen by Provider: Jan 12, 2021 Initial Comments Patient is an 80-year-old female who presents to the emergency room today with her daughter with a chief complaint of increasing shortness of breath over the last week and a half. Dr. Webster pulmonary critical care called me after the patient was seen at the pulmonary clinic today for concern of worsening respiratory function, hypoxia increasing oxygen requirement, significant lower extremity edema. She had a chest x-ray done today which showed significant left-sided pleural effusion with mild right-sided pleural effusion. She has had CT of the chest as well as a VQ scan in the last couple of days. CT of the chest shows mediastinal and hilar lymphadenopathy with the largest lymph node in her chest subcarinal, decreased in size a little bit from 2019 CTs. There is also suspicion of an additional infiltrate within the left lung base on the CAT scan. The VQ scan showed no definite mismatch but suggestion of an "airspace process" in the mid and lower left lung. Patient denies any fevers or chills. No increased cough. She is a longtime smoker. Prior to a week and a half ago the patient was only on as needed oxygen at night. She a week and a half ago started becoming profoundly short of breath dropping her oxygen saturations and went from no oxygen during the day to 5 L to maintain a saturation over 92. She denies chest pain. She has no known coronary artery disease. She does have chronic kidney disease. She does have COPD and uses inhalers at home. She is Covid vaccinated. No Covid complaints today. No diarrhea or headache. No increased work of breathing except when she gets up and moves around. No productive cough. No urinary complaints today. All other review of systems reviewed and negative except as stated. Timing/Duration: week, getting worse Severity: moderate Modifying Factors: Improves With Albuterol Inhaler, Improves With Albuterol Nebulizer Associated Symptoms: cough, lightheadedness, shortness of breath (ROBI KOHLER MD) Time Seen by Provider: 16:25 (ROSALIE OLIVA DO) Allergies and Home Medications Allergies Coded Allergies: No Known Drug Allergies (Unverified , 03/20/19) Home Medications Albuterol Sulfate 1 Puff Puff, 2 PUFF IH Q4H PRN for SHORTNESS OF BREATH 1 PUFF = 90 MCG Prescribed by: RICKI ALCARAZ on 03/31/19 1123 Allopurinol 100 Mg Tablet, 100 MG PO DAILY, (Reported) Atorvastatin Calcium 80 Mg Tablet, 80 MG PO HS, (Reported) Calcitriol 0.25 Mcg Capsule, 0.25 MCG PO MoFr, (Reported) Clonazepam 0.5 Mg Tablet, 0.5 MG PO HS PRN for ANXIETY, (Reported) Clopidogrel Bisulfate 75 Mg Tablet, 75 MG PO DAILY, (Reported) Diltiazem HCl 300 Mg Cap.er.24h, 300 MG PO HS, (Reported) Fluconazole 100 Mg Tablet, 100 MG PO DAILY Prescribed by: RICKI ALCARAZ on 03/31/19 1123 Fluticasone/Salmeterol 12 Gm Hfa.aer.ad, 2 PUFF IH BID@08,20 Prescribed by: RICKI ALCARAZ on 03/31/19 1123 Furosemide 40 Mg Tablet, 40 MG PO DAILY, (Reported) Irbesartan 300 Mg Tablet, 300 MG PO DAILY, (Reported) Loratadine 10 Mg Tablet, 10 MG PO DAILY, (Reported) Nebivolol HCl 10 Mg Tab, 10 MG PO HS, (Reported) Prednisone 20 Mg Tab, 40 MG PO DAILY@0700 Prescribed by: RICKI ALCARAZ on 03/31/19 1123 Patient Home Medication List Home Medication List Reviewed: Yes (ROBI KOHLER MD) Review of Systems Review of Systems Constitutional: see HPI EENTM: no symptoms reported Respiratory: cough, dyspnea on exertion Cardiovascular: edema Gastrointestinal: no symptoms reported Genitourinary: no symptoms reported Musculoskeletal: no symptoms reported Skin: no symptoms reported Psychiatric/Neurological: Anxiety (ROBI KOHLER MD) Past Ncqsfbw-Poolwo-Ytbbsh Hx Patient Social History Tobacco Use?: Yes Tobacco type used: Cigarettes Smoking Status: Light Tobacco Smoker Substance use?: No Alcohol Use?: No Pt feels they are or have been: No (ROBI KOHLER MD) Immunizations Up To Date Second COVID19 Vaccination Beck: NA COVID19 Vaccine Heavy Equipment Technician: MOUSTAPHA (ROBI KOHLER MD) Seasonal Allergies Seasonal Allergies: Yes (ROBI KOHLER MD) Past Medical History Surgeries: Yes Appendectomy, Coronary Stent, Gallbladder, Tonsillectomy Respiratory: Yes Sleep Apnea, COPD Currently Using CPAP: No Currently Using BIPAP: No Cardiac: Yes Chronic Edema/Swelling, Coronary Artery Disease, Heart Attack, Hypertension, Irregular Heartbeat Neurological: Yes Neuropathy, Stroke Genitourinary: Yes Renal Failure Gastrointestinal: No Musculoskeletal: Yes Gout Endocrine: No HEENT: No Cancer: No Psychosocial: Yes Anxiety Integumentary: No (ROBI KOHLER MD) Physical Exam Vital Signs - First Documented 01/12/21 15:45 Temp 36.7 Pulse 68 Resp 22 B/P (MAP) 124/70 (88) Pulse Ox 96 O2 Delivery Nasal Cannula O2 Flow Rate 5.00 (ROSALIE OLIVA DO) Capillary Refill : Less Than 3 Seconds (ROBI KOHLER MD) Height: '" Weight: 205lbs. 8.0oz. kg; 40.00 BMI Method: General Appearance: WD/WN, no apparent distress Eyes: Bilateral Eye Normal Inspection, Bilateral Eye PERRL, Bilateral Eye EOMI HEENT: PERRL/EOMI Neck: normal inspection Respiratory: other (Diminished breath sounds more so on the left than the right. Patient has a little bit of crackling with scant expiratory wheezing noted posteriorly in the right lung. No respiratory distress is noted) Cardiovascular: regular rate, rhythm, other (Significant lower extremity edema bilaterally) Gastrointestinal: non tender, soft Extremities: no calf tenderness, pedal edema Neurologic/Psychiatric: no motor/sensory deficits, alert, normal mood/affect, oriented x 3 Skin: normal color, warm/dry (ROBI KOHLER MD) Progress/Results/Core Measures Suspected Sepsis SIRS Temperature: Pulse: 68 Respiratory Rate: 22 Laboratory Tests 01/12/21 16:40: White Blood Count 6.8 Blood Pressure 124 /70 Mean: 88 Laboratory Tests 01/12/21 16:40: Creatinine 1.71H, Platelet Count 209, Total Bilirubin 0.4 (ROBI KOHLER MD) Results/Orders Lab Results Laboratory Tests Test 01/12/21 16:40 01/12/21 17:04 Range/Units White Blood Count 6.8 4.3-11.0 10^3/uL Red Blood Count 4.60 3.80-5.11 10^6/uL Hemoglobin 13.3 11.5-16.0 g/dL Hematocrit 43 35-52 % Mean Corpuscular Volume 93 80-99 fL Mean Corpuscular Hemoglobin 29 25-34 pg Mean Corpuscular Hemoglobin Concent 31 L 32-36 g/dL Red Cell Distribution Width 14.7 H 10.0-14.5 % Platelet Count 209 130-400 10^3/uL Mean Platelet Volume 10.3 9.0-12.2 fL Immature Granulocyte % (Auto) 0 % Neutrophils (%) (Auto) 73 42-75 % Lymphocytes (%) (Auto) 14 12-44 % Monocytes (%) (Auto) 6 0-12 % Eosinophils (%) (Auto) 6 0-10 % Basophils (%) (Auto) 1 0-10 % Neutrophils # (Auto) 5.0 1.8-7.8 10^3/uL Lymphocytes # (Auto) 1.0 1.0-4.0 10^3/uL Monocytes # (Auto) 0.4 0.0-1.0 10^3/uL Eosinophils # (Auto) 0.4 H 0.0-0.3 10^3/uL Basophils # (Auto) 0.0 0.0-0.1 10^3/uL Immature Granulocyte # (Auto) 0.0 0.0-0.1 10^3/uL Sodium Level 142 135-145 MMOL/L Potassium Level 3.8 3.6-5.0 MMOL/L Chloride Level 108 H 98-107 MMOL/L Carbon Dioxide Level 26 21-32 MMOL/L Anion Gap 8 5-14 MMOL/L Blood Urea Nitrogen 15 7-18 MG/DL Creatinine 1.71 H 0.60-1.30 MG/DL Estimat Glomerular Filtration Rate 29 BUN/Creatinine Ratio 9 Glucose Level 94 70-105 MG/DL Calcium Level 9.5 8.5-10.1 MG/DL Corrected Calcium 9.7 8.5-10.1 MG/DL Total Bilirubin 0.4 0.1-1.0 MG/DL Aspartate Amino Transf (AST/SGOT) 11 5-34 U/L Alanine Aminotransferase (ALT/SGPT) 17 0-55 U/L Alkaline Phosphatase 159 H 40-136 U/L B-Type Natriuretic Peptide 394.0 H <100.0 PG/ML Total Protein 6.6 6.4-8.2 GM/DL Albumin 3.8 3.2-4.5 GM/DL Procalcitonin 0.04 <0.10 NG/ML Blood Gas Puncture Site UNK Blood Gas Patient Temperature 36.7 Arterial Blood pH 7.33 *L 7.37-7.43 Arterial Blood Partial Pressure CO2 46 H 35-45 MMHG Arterial Blood Partial Pressure O2 77 L 79-93 MMHG Arterial Blood HCO3 23 23-27 MMOL/L Arterial Blood Total CO2 24.7 21.0-31.0 MMOL/L Arterial Blood Oxygen Saturation 94 94-100 % Arterial Blood Base Excess -1.9 -2.5-2.5 MMOL/L Xavier Test UNK Blood Gas Ventilator Setting NO Blood Gas Inspired Oxygen UNK (ROSALIE OLIVA DO) Vital Signs/I&O 01/12/21 01/12/21 15:45 16:43 Temp 36.7 Pulse 68 Resp 22 B/P (MAP) 124/70 (88) Pulse Ox 96 96 O2 Delivery Nasal Cannula Nasal Cannula O2 Flow Rate 5.00 5.00 (ROSALIE OLIVA DO) Vital Signs/I&O Capillary Refill : Less Than 3 Seconds (ROBI KOHLER MD) Blood Pressure Mean: 88 Progress Note : Progress Note 1800--ASSUMED CARE OF PT BY DR. KOHLER, LAB PENDING. SHE HAS ALREADY DISCUSSED CASE WITH DR. CHAVIRA, DR. RHODES, AND DR. ORTEGA, AND PT HAS BEEN ACCEPTED FOR ADMIT. (ROSALIE OLIVA DO) Departure Communication (Admissions) 1827--MESSAGE ON DR. CHAVIRA'S PHONE 1833--SPOKE WITH DR. CHAVIRA AND UPDATED HER ON PT'S LAB, AND ORDERS NOTED FOR CEFEPIME AND SOLU-MEDROL. (ROSALIE OLIVA DO) Impression Primary Impression: Shortness of breath Additional Impression: Pleural effusion Disposition: ADMITTED INPATIENT Condition: Stable Admissions Decision to Admit Reason: Admit from ER (General) Decision to Admit/Date: Jan 12, 2021 Time/Decision to Admit Time: 17:30 (ROBI KOHLER MD) Departure-Patient Inst. Referrals: [facility] [place] (PCP) Primary Care Physician DENISHA RAO APRN (Family) Primary Care Physician ROBI KOHLER MD Jan 12, 2021 17:31 ROSALIE OLIVA DO Jan 13, 2021 06:50
[2021-01-12] MEDS ORDERED: CEFEPIME INJECTION 1,000 MG in WATER (STERILE) FOR INJECTION 10 ML IV ONE (18:45)
[2021-01-12] MEDS ORDERED: methylPREDNISolone 125 MG (Solu-MEDROL) VIAL IVP ONE (18:45)
[2021-01-12 20:00] VITALS: BP 147/71
[2021-01-12 20:04] VITALS: BP 126/92
[2021-01-12] MEDS ORDERED: CATHETER FLUSH 10 ML SYR IV PRN (20:30)
[2021-01-12] MEDS ORDERED: RT-ALBUTEROL SULF 2.5 MG/3 ML PRE-MIX VIAL INH PRN (20:30)
[2021-01-12] MEDS: FUROSEMIDE 40 MG/4 ML INJ (LASIX) IV SCH (21:07)
[2021-01-12] MEDS: CATHETER FLUSH 10 ML SYR IV SCH (21:07)
[2021-01-12] MEDS ORDERED: ONDANSETRON 4 MG/2 ML (SDV) Z0FRAN IVP PRN (21:15)
[2021-01-12] MEDS ORDERED: DOCUSATE SODIUM 100 MG (COLACE) CAP PO PRN (21:15)
[2021-01-12] MEDS ORDERED: CALCIUM CARBONATE 500 MG (TUMS) TAB.CHEW PO PRN (21:15)
[2021-01-12] MEDS ORDERED: LOPERAMIDE 2 MG (IMODIUM) TABLET PO PRN (21:15)
[2021-01-12] MEDS ORDERED: diphenhydrAMINE 25 MG TAB (BENADRYL) PO PRN (21:15)
[2021-01-12] MEDS ORDERED: morphine INJ 10 MG/ML 1ML (SYR OR VIAL) IVP PRN (21:15)
--- NOTE | 2021-01-12 22:49 | CONSULTATION REPORT ---
DATE OF SERVICE: ATTENDING CLINICIAN: [facility]. ADMITTING PHYSICIAN: Dr. Rose. HISTORY OF PRESENT ILLNESS: The patient is an 80-year-old female with history of multiple medical problems who presented to the Emergency Department with worsening exertional shortness of breath as well as bilateral lower extremity edema. She has a history of coronary artery disease as well as COPD and congestive heart failure. Chest x-ray as well as CT scan consistent with large right pleural effusion as well as pulmonary infiltrates. She does not report any cough or sputum production as well as no fever, no chills. She is currently not short of breath at rest on 5 liters nasal cannula. PAST MEDICAL HISTORY: COPD, hypertension, coronary artery disease, hypercholesterolemia, neuropathy, history of stroke, renal failure. PAST SURGICAL HISTORY: Appendectomy, cholecystectomy, tonsillectomy, cardiac catheterization and stent placement. ALLERGIES: No known drug allergies. MEDICATIONS: Albuterol MDI, allopurinol, atorvastatin, clonazepam, Plavix, diltiazem, fluconazole, furosemide, irbesartan, loratadine, Advair, nebivolol. SOCIAL HISTORY: Positive smoke 50 pack years. Negative alcohol. FAMILY HISTORY: Noncontributory. VITAL SIGNS: Temperature 36.7, blood pressure 126/92, pulse 68, respirations 16, pulse ox 96% on 5 liters nasal cannula. REVIEW OF SYSTEMS: This is a well-nourished female, currently in no acute distress. She is experiencing exertional shortness of breath as well as bilateral lower extremity edema. No cough or sputum production. No chest pain, palpitations or diaphoresis. No nausea or vomiting. No diarrhea or constipation. No fever or chills. No recent inadvertent weight loss. All other review of systems negative. PHYSICAL EXAMINATION: CHEST: Decreased breath sounds left lung base. Scattered rales bilaterally. HEART: Regular, no murmurs. EXTREMITIES: A +1/3 bilateral lower extremity edema, negative Homans sign. HEENT: No scleral icterus. NECK: No cervical lymphadenopathy. ABDOMEN: Soft, nontender, nondistended. SKIN: Warm, dry. LABORATORY DATA: WBC 5.8, hemoglobin 13.3, hematocrit 43, platelets 209, BUN 15, creatinine 1.71. ASSESSMENT AND PLAN: An 80-year-old female with a large left pleural effusion as well as pulmonary infiltrates and likely congestive heart failure and exacerbation of COPD. Due to the finding of the large left pleural effusion, we will proceed with a therapeutic thoracentesis on this admission. Job ID: [id number] DocumentID: [id number] Dictated Date: 01/12/2021 22:14:52 Medical Secretary Receptionist Date: 01/12/2021 22:48:59 Dictated By: SKIP ORTEGA MD
[2021-01-12] MEDS: RT-ALBUTEROL SULF 2.5 MG/3 ML PRE-MIX VIAL INH SCH (23:11)
[2021-01-12 23:30] VITALS: BP 126/71
[2021-01-12] MEDS: methylPREDNISolone 125 MG (Solu-MEDROL) VIAL IV SCH (23:35)
[2021-01-13 03:12] VITALS: BP 119/76
[2021-01-13] MEDS: methylPREDNISolone 125 MG (Solu-MEDROL) VIAL IV SCH ×4 (05:50→23:49)
[2021-01-13] MEDS: CATHETER FLUSH 10 ML SYR IV SCH ×3 (05:50→23:45)
[2021-01-13] MEDS: CEFEPIME 1,000 MG/SWFI 10 ML IV PUSH IV SCH ×4 (05:50→17:59)
[2021-01-13] MEDS: FUROSEMIDE 40 MG/4 ML INJ (LASIX) IV SCH ×2 (05:50→17:59)
[2021-01-13 06:32] LABS: BASOPHILS % (AUTO) 0 % (0-10); EOSINOPHILS % (AUTO) 0 % (0-10); HEMATOCRIT 38 % (35-52); HEMOGLOBIN 12.1 g/dL (11.5-16.0); LYMPHOCYTES # (AUTO) 0.3 10^3/uL (1.0-4.0); LYMPHOCYTES % (AUTO) 7 % (12-44); MEAN CORPUSCULAR HEMOGLOBIN 30 pg (25-34); MEAN CORPUSCULAR HGB CONC 32 g/dL (32-36); MEAN CORPUSCULAR VOLUME 94 fL (80-99); MEAN PLATELET VOLUME 10.7 fL (9.0-12.2); MONOCYTES % (AUTO) 1 % (0-12); NEUTROPHILS % (AUTO) 91 % (42-75); PLATELET COUNT 159 10^3/uL (130-400); WHITE BLOOD COUNT 4.4 10^3/uL (4.3-11.0)
[2021-01-13 06:37] LABS: ALBUMIN 3.3 GM/DL (3.2-4.5)
[2021-01-13 06:38] LABS: CALCIUM 9.2 MG/DL (8.5-10.1)
[2021-01-13 06:40] LABS: TOTAL PROTEIN 5.8 GM/DL (6.4-8.2)
[2021-01-13 06:41] LABS: BILIRUBIN,TOTAL 0.2 MG/DL (0.1-1.0)
[2021-01-13 06:43] LABS: CREATININE SERUM 1.74 MG/DL (0.60-1.30)
[2021-01-13 06:57] LABS: LYMPHOCYTES % (MANUAL) 10 %; NEUTROPHILS % (MANUAL) 90 %; RBC MORPH NORMAL
[2021-01-13] MEDS: RT-ALBUTEROL SULF 2.5 MG/3 ML PRE-MIX VIAL INH SCH ×5 (07:13→23:06)
[2021-01-13 08:00] VITALS: BP 143/87
[2021-01-13] MEDS: ACETAMINOPHEN 325 MG TABLET PO PRN (08:33)
[2021-01-13 12:00] VITALS: BP 119/71
--- NOTE | 2021-01-13 12:52 | Pulmonary Progress Note ---
Subjective Date Seen by a Provider: Jan 13, 2021 Time Seen by a Provider: 12:59 Subjective/Events-last exam Breathing about same, awaiting thoracentesis. Spo2 in mid 90's on 5 lpm No newe CXR, V/Q did not show any mismatched defects, rather poor perfusion of left lung as would be expected Pt reports no CP, Started on IV Cefepime, Medrol, ABG 7.33/44/76 on 5 lpm NC Coagulation not done yet, will order Review of Systems General: Chills, Night Sweats, Fatigue, Malaise, Appetite, Other Pulmonary: Dyspnea Cardiovascular: Other (breathing about same, no CP) Sepsis Event Evaluation Height, Weight, BMI Height: '" Weight: 205lbs. 8.0oz. kg; 36.76 BMI Method: Focused Exam Lactate Level 01/12/21 18:05: Lactic Acid Level 0.71 Exam Exam Patient acknowledged, consented, and participated in this virtual visit which was conducted using real time audio/video Vital Signs Date Time Temp Pulse Resp B/P (MAP) Pulse Ox O2 Delivery O2 Flow Rate FiO2 01/13/21 10:54 90 Nasal Cannula 5.00 01/13/21 08:00 Nasal Cannula 5.00 01/13/21 08:00 36.0 93 22 143/87 (105) 93 Nasal Cannula 5.00 01/13/21 07:15 90 Nasal Cannula 5.00 01/13/21 07:00 79 01/13/21 03:12 35.8 81 18 119/76 (90) 93 Nasal Cannula 5.00 01/13/21 01:00 75 01/12/21 23:30 36.2 89 22 126/71 (89) 93 Nasal Cannula 5.00 01/12/21 23:14 95 Nasal Cannula 5.00 40 01/12/21 21:19 78 01/12/21 20:04 36.7 68 96 40 01/12/21 20:00 36.0 78 20 147/71 (96) 92 Nasal Cannula 5.00 01/12/21 20:00 Nasal Cannula 01/12/21 19:06 80 16 126/92 96 Nasal Cannula 5.00 01/12/21 16:43 96 Nasal Cannula 5.00 01/12/21 15:45 36.7 68 22 124/70 (88) 96 Nasal Cannula 5.00 I & O 01/13/21 07:00 Intake Total 600 ml Output Total 850 ml Balance -250 ml Height & Weight Height: '" Weight: 205lbs. 8.0oz. kg; 36.76 BMI Method: General Appearance: No Apparent Distress Respiratory: Other (breath sounds decreased on left) Cardiovascular: Regular Rate, Rhythm Capillary Refill: Less Than 3 Seconds Gastrointestinal: non tender, soft Extremity: Pedal Edema, Other (leg edema is better after Lasix) Neurologic/Psychiatric: Oriented x3 Skin: Normal Color Results Lab Laboratory Tests 01/12/21 16:40 01/13/21 05:50 01/13/21 06:00 Assessment/Plan Assessment/Plan Edema better after laisx, await pleural tap, will order INR/PT, PTT Spoke to pt and daughter again about treatment plan Will call Dr Gamino to dscuss pt. Time spent with patient (mins): 20 WADE GARDNER MD Jan 13, 2021 12:52
--- NOTE | 2021-01-13 13:02 | History & Physical-Hospitalist ---
MARISSA HALL MED STUDENT 01/13/21 1302: History of Present Illness HPI/Chief Complaint CC: SOB and pleural effusion HPI: This is Janette a 80 yo female on day 2 of of her inpatient hospital stay with the chief complaint of SOB and pleural effusion, She presented to the ER on 01/12. Pt was at her scheduled appointment at the pulmonary care clinic with complaints of SOB for the past week and a half when they referred her to the ER. Pt stated that she is generally on 5L at night with her CPAP machine but has required supplemental O2 at 5L during the day since these symptoms began. Exertion makes the symptoms worse and the only thing that truly helps is the supplemental O2. PMH is significant for RALF, COPD, and CKD. PSH is significant for appendectomy, cholecystectomy, and a back surgery. Pt denies recent hospitalizations. No family history was provided due to patient being a poor historian. Upon entering the room this morning she was laying in bed. Pt was calm, cooperative, and engaged during questioning. Her only complaint this AM was of a headache. Multiple images were completed the last two days. CXR on 07/15 revealed significantly worsening moderate to large pleural effusion on the left, small pleural effusion on the right, and cardiomegaly with central vascular congestion. Lung perfusion scan revealed perfusion asymmetry on the left side and airspace process in the mid and LLL and effusion. CT on 01/11 revealed mediastinal and hilar adenopathy and evidence of chronic granulomatous disease. Venous doppler was completed on 01/11 and revealed a left sided popliteal cyst without evidence of DTV. Dr. Gamino was consulted and a therapeutic thoracentesis was scheduled for later today. Source: patient Date Seen 01/13/21 Time Seen by a Provider: 08:00 Attending Physician Leonor Chavira DO [facility] Referring Physician Date of Admission Jan 12, 2021 at 17:35 Home Medications & Allergies Home Medications Reviewed patient Home Medication Reconciliation performed by pharmacy medication reconciliations auto body repair technician and/or nursing. Patients Allergies have been reviewed. Allergies Allergies Coded Allergies No Known Drug Allergies (Cuntrvosvy45/31/19) Past Ffmxssp-Svkvgz-Gfcyvu Hx Patient Social History Living Status: lives with her granddaughter Tobacco Use?: Yes Tobacco type used: Cigarettes Smoking Status: Current Everyday Smoker Smokeless Tobacco Frequency: Current Everyday User (5-6 cigs per day), Never a User Use of E-Cig and/or Vaping dev: No Substance use?: No Alcohol Use?: No Pt feels they are or have been: No Immunizations Up To Date First/Initial COVID19 Vaccinat: UNKNOWN Second COVID19 Vaccination Beck: UNKNOWN Tetanus Booster (TDap): Unknown Hepatitis A: No Hepatitis B: No Seasonal Allergies Seasonal Allergies: Yes Current Status status: No status: No Advance Directives: No Communicates: Verbally Primary Language: Brazilian Preferred Spoken Language: Brazilian Is interpretation needed?: No Past Medical History Surgeries: Appendectomy, Coronary Stent, Gallbladder, Tonsillectomy Sleep Apnea, COPD Currently Using CPAP: No Currently Using BIPAP: No Chronic Edema/Swelling, Coronary Artery Disease, Heart Attack, Hypertension, Irregular Heartbeat Neuropathy, Stroke Renal Failure Abdominal Hernia Gout Anxiety Review of Systems Constitutional: No chills, No diaphoresis, No fever; weakness; No weight gain, No weight loss EENTM: No ear pain, No blurred vision, No double vision, No eye pain, No throat pain Respiratory: cough, dyspnea on exertion; No hemoptysis; short of breath Cardiovascular: No chest pain, No edema, No palpitations Gastrointestinal: No abdominal pain, No constipation, No diarrhea, No nausea, No vomiting Genitourinary: No dysuria, No frequency, No hematuria Musculoskeletal: No joint pain, No muscle pain Skin: No lesions, No rash Psychiatric/Neurological: Denies Anxiety, Denies Depressed; Headache; Denies Numbness, Denies Tingling; Weakness Physical Exam Physical Exam Vital Signs Vital Signs - First Documented 01/12/21 01/12/21 15:45 20:04 Temp 36.7 Pulse 68 Resp 22 B/P (MAP) 124/70 (88) Pulse Ox 96 O2 Delivery Nasal Cannula O2 Flow Rate 5.00 FiO2 40 Capillary Refill : Less Than 3 Seconds Height, Weight, BMI Height: '" Weight: 205lbs. 8.0oz. kg; 36.76 BMI Method: General Appearance: No Apparent Distress, WD/WN, Chronically ill HEENT: PERRL/EOMI, Pharynx Normal Neck: Normal Inspection, Non Tender, Supple Respiratory: Chest Non Tender, No Accessory Muscle Use, No Respiratory Distress, Decreased Breath Sounds (on the left), Wheezing (on the right ) Cardiovascular: Regular Rate, Rhythm, No Edema, Normal Peripheral Pulses, Diastolic Murmur Gastrointestinal: Normal Bowel Sounds, Non Tender, Soft Rectal: Deferred Back: No Vertebral Tenderness Extremity: Normal Inspection, Non Tender, No Calf Tenderness, No Pedal Edema Neurologic/Psychiatric: Alert, Oriented x3, No Motor/Sensory Deficits, Normal Mood/Affect Skin: Normal Color, Warm/Dry Results Results/Procedures Labs Laboratory Tests 01/12/21 16:40 01/13/21 05:50 01/13/21 06:00 Patient resulted labs reviewed. Assessment/Plan Assessment and Plan SOB continue supplemental O2 monitor vitals and labs ABG on 01/12 7.33/46/77 continue albuterol inhaler moderate to large pleural effusion on the left small pleural effusions on the right consult surgery thoracentesis DVT prophylaxis add lovenox after thoracentesis is performed encourage IS use cardiomegaly with central vascular congestion continue Lasix chronic granulomatous disease left sided popliteal cyst CKD BUN of 17 anf Cre of 1.74 on 01/12 RALF encourage CPAP use at night COPD continue antibiotic and steriod use- cefepime and methylprednisolone continue home medications elevated alk phos of 140 on 01/12 umbilical hernia headache Tylenol PRN smoking history LEONOR CHAVIRA DO 01/14/21 0552: History of Present Illness HPI/Chief Complaint CC: SOB HPI: This is an 80yoWF clinic Pt of [facility] who presents to the ER with SOB after pulmonology evaluated, her VQ scan and CT scan and noted increased oxygen requirements. She usually wore five liters at night, but then she was needing that 11/12. She was found to have a large left pleural effusion, and Dr. Leong cardiology was consulted and Dr. Layton will perform thorocentesis today. At this current time Pt feels a little better on the oxygen. Family at the bedside. Source: patient, family Past Guvqrna-Uuxkdl-Bnsfxc Hx Patient Social History Marrital Status: single Smokeless Tobacco Frequency: Never a User Past Medical History COPD Review of Systems Constitutional: see HPI EENTM: no symptoms reported Respiratory: cough, dyspnea on exertion Cardiovascular: no symptoms reported Gastrointestinal: no symptoms reported Musculoskeletal: no symptoms reported Skin: no symptoms reported Psychiatric/Neurological: No Symptoms Reported Physical Exam Physical Exam General Appearance: No Apparent Distress, WD/WN, Anxious, Chronically ill, Obese Eyes: Right Eye Normal Inspection, Right Eye PERRL HEENT: PERRL/EOMI, Normal ENT Inspection, Pharynx Normal, Moist Mucous Membranes Neck: Full Range of Motion, Normal Inspection, Non Tender Respiratory: Chest Non Tender, No Accessory Muscle Use, No Respiratory Distress, Decreased Breath Sounds (on the left), Wheezing (on the right ) Cardiovascular: Regular Rate, Rhythm, No Edema, No Gallop, No JVD, No Murmur, Normal Peripheral Pulses Gastrointestinal: Normal Bowel Sounds, No Organomegaly, No Pulsatile Mass, Non Tender, Soft Back: Normal Inspection, No CVA Tenderness, No Vertebral Tenderness Extremity: Normal Capillary Refill, Normal Inspection, Normal Range of Motion, Non Tender, No Calf Tenderness, No Pedal Edema Neurologic/Psychiatric: Alert, Oriented x3, No Motor/Sensory Deficits, Normal Mood/Affect Skin: Normal Color, Warm/Dry Lymphatic: No Adenopathy Assessment/Plan Admission Diagnosis Assessment: Acute on chronic respiratory insufficiency Left-sided pleural effusion will require thoracentesis today Volume overload consulted cardiology COPD Plan: Appreciate Dr. LAYTON Appreciate Dr. Leong Monitor closely Thoracentesis Admission Status: Inpatient Order (span 2 midnights) Reason for Inpatient Admission: Pleural effusion with respiratory failure Supervisory-Addendum Brief Verification & Attestation Participated in pt care: history, MDM, physical Personally performed: exam, history, MDM, supervision of care Care discussed with: Medical Student Procedures: n/a Results interpretation: Verified all documentation Verification and Attestation of Medical Student E/M Service A medical student performed and documented this service in my presence. I reviewed and verified all information documented by the medical student and made modifications to such information, when appropriate. I personally performed the physical exam and medical decision making. Leonor Chavira, Jan 14, 2021,05:49 MARISSA HALL MED STUDENT Jan 13, 2021 13:02 LEONOR CHAVIRA DO Jan 14, 2021 05:52
[2021-01-13 13:17] LABS: INR 0.9 (0.8-1.4); PROTHROMBIN TIME PATIENT 12.7 SEC (12.2-14.7)
[2021-01-13] MEDS ORDERED: FLUT1DIS26 IH (13:59)
[2021-01-13] MEDS ORDERED: DILT300C52 PO (13:59)
[2021-01-13] MEDS ORDERED: SULF1TAB38 PO (13:59)
--- NOTE | 2021-01-13 14:03 | Consultation-Cardiology ---
HPI-Cardiology Cardiology Consultation: Date of Consultation 01/13/21 Time Seen by a Provider: 09:20 Date of Admission Attending Physician Leonor Rose DO Admitting Physician [facility], [facility] Consulting Physician KARINE ALEXIS MD, MA, FACP, FACC, [facility] [place], [facility] Physician requesting consult: Dr Rose HPI: Chief Complaint: Reason for Cardiology consultation: Shortness of breath HPI 80 woman with medical problems listed under Assessment admitted to Dr Rose's service after increasing shortness of breath led to a chest x-ray that showed large L-sided pleural effusion. Shortness of breath has been increasing for several weeks. Denies cp. Has gen malaise. Has chronic, mild, intermittent leg swelling, worse as the day progresses, improving overnight. Does not report fever or chills. Has gen weakness but no focal weakness Review of Systems-Cardiology Review of Systems Constitutional: As described under HPI Eyes: No vision change Ears/Nose/Throat: No ear discharge, No nasal drainage, No recent hearing loss Respiratory: As described under HPI Cardiovascular: As described under HPI Gastrointestinal: No diarrhea, No nausea, No other Genitourinary: No dysuria, No hematuria, No urine frequency changes Musculoskeletal: back pain (chronic) Skin: No rash, No ulcerations Psychiatric/Neurological: No seizure, No focal weakness, No syncope Hematologic: No bleeding abnormalities RGC-[id number]-[id number] Hx Patient Social History Living Status: lives with her granddaughter Smoking Status: Current Everyday Smoker 2nd Hand Smoke Exposure: No Have you traveled recently?: No Alcohol Use?: No Pt feels they are or have been: No Tobacco type used: Cigarettes Past Medical History PMH As described under Assessment. Family Medical History Family Medical History: Father had MD when he was in his 60s Allergies and Home Medications Allergies Coded Allergies: No Known Drug Allergies (Unverified , 03/20/19) Home Medications Albuterol Sulfate 1 Puff Puff, 2 PUFF IH Q4H PRN for SHORTNESS OF BREATH 1 PUFF = 90 MCG Prescribed by: RICKI ALCARAZ on 03/31/19 1123 Allopurinol 100 Mg Tablet, 100 MG PO DAILY, (Reported) Atorvastatin Calcium 80 Mg Tablet, 80 MG PO HS, (Reported) Calcitriol 0.25 Mcg Capsule, 0.25 MCG PO MoFr, (Reported) Clonazepam 0.5 Mg Tablet, 0.5 MG PO HS PRN for ANXIETY, (Reported) Clopidogrel Bisulfate 75 Mg Tablet, 75 MG PO DAILY, (Reported) Diltiazem HCl 300 Mg Cap.er.24h, 300 MG PO HS, (Reported) Fluconazole 100 Mg Tablet, 100 MG PO DAILY Prescribed by: RICKI ALCARAZ on 03/31/19 1123 Fluticasone/Salmeterol 12 Gm Hfa.aer.ad, 2 PUFF IH BID@ Prescribed by: RICKI ALCARAZ on 03/31/19 1123 Furosemide 40 Mg Tablet, 40 MG PO DAILY, (Reported) Irbesartan 300 Mg Tablet, 300 MG PO DAILY, (Reported) Loratadine 10 Mg Tablet, 10 MG PO DAILY, (Reported) Nebivolol HCl 10 Mg Tab, 10 MG PO HS, (Reported) Prednisone 20 Mg Tab, 40 MG PO DAILY@0700 Prescribed by: RICKI ALCARAZ on 03/31/19 112 Patient Home Medication List Home Medication List Reviewed: Yes Physical Exam-Cardiology Physical Exam Vital Signs/I&O 01/13/21 01/13/21 01/13/21 01/13/21 03:12 07:00 07:15 08:00 Temp 35.8 36.0 Pulse 81 79 93 Resp 18 22 B/P (MAP) 119/76 (90) 143/87 (105) Pulse Ox 93 90 93 O2 Delivery Nasal Cannula Nasal Cannula Nasal Cannula O2 Flow Rate 5.00 5.00 5.00 01/13/21 01/13/21 01/13/21 01/13/21 08:00 10:54 12:00 13:00 Temp 36.2 Pulse 92 96 Resp 20 B/P (MAP) 119/71 (87) Pulse Ox 90 92 O2 Delivery Nasal Cannula Nasal Cannula Nasal Cannula O2 Flow Rate 5.00 5.00 5.00 01/12/21 23:59 Intake Total 600 ml Output Total 0 ml Balance 600 ml Capillary Refill : Less Than 3 Seconds Data Review Labs Laboratory Tests 01/12/21 16:40: White Blood Count 6.8, Red Blood Count 4.60, Hemoglobin 13.3, Hematocrit 43, Mean Corpuscular Volume 93, Mean Corpuscular Hemoglobin 29, Mean Corpuscular Hemoglobin Concent 31L, Red Cell Distribution Width 14.7H, Platelet Count 209, Mean Platelet Volume 10.3, Immature Granulocyte % (Auto) 0, Neutrophils (%) (Auto) 73, Lymphocytes (%) (Auto) 14, Monocytes (%) (Auto) 6, Eosinophils (%) (Auto) 6, Basophils (%) (Auto) 1, Neutrophils # (Auto) 5.0, Lymphocytes # (Auto) 1.0, Monocytes # (Auto) 0.4, Eosinophils # (Auto) 0.4H, Basophils # (Auto) 0.0, Immature Granulocyte # (Auto) 0.0, Sodium Level 142, Potassium Level 3.8, Chloride Level 108H, Carbon Dioxide Level 26, Anion Gap 8, Blood Urea Nitrogen 15, Creatinine 1.71H, Estimat Glomerular Filtration Rate 29, BUN/Creatinine Ratio 9, Glucose Level 94, Calcium Level 9.5, Corrected Calcium 9.7, Total Bilirubin 0.4, Aspartate Amino Transf (AST/SGOT) 11, Alanine Aminotransferase (ALT/SGPT) 17, Alkaline Phosphatase 159H, B-Type Natriuretic Peptide 394.0H, Total Protein 6.6, Albumin 3.8, Procalcitonin 0.04 01/12/21 17:04: Blood Gas Puncture Site UNK, Blood Gas Patient Temperature 36.7, Arterial Blood pH 7.33*L, Arterial Blood Partial Pressure CO2 46H, Arterial Blood Partial Pressure O2 77L, Arterial Blood HCO3 23, Arterial Blood Total CO2 24.7, Arterial Blood Oxygen Saturation 94, Arterial Blood Base Excess -1.9, Xavier Test UNK, Blood Gas Ventilator Setting NO, Blood Gas Inspired Oxygen UNK 01/12/21 18:05: Lactic Acid Level 0.71 01/13/21 05:50: White Blood Count 4.4, Red Blood Count 4.08, Hemoglobin 12.1, Hematocrit 38, Mean Corpuscular Volume 94, Mean Corpuscular Hemoglobin 30, Mean Corpuscular Hemoglobin Concent 32, Red Cell Distribution Width 14.4, Platelet Count 159, Mean Platelet Volume 10.7, Immature Granulocyte % (Auto) 1, Neutrophils (%) (Auto) 91H, Lymphocytes (%) (Auto) 7L, Monocytes (%) (Auto) 1, Eosinophils (%) (Auto) 0, Basophils (%) (Auto) 0, Neutrophils # (Auto) 4.0, Lymphocytes # (Auto) 0.3L, Monocytes # (Auto) 0.0, Eosinophils # (Auto) 0.0, Basophils # (Auto) 0.0, Immature Granulocyte # (Auto) 0.0, Neutrophils % (Manual) 90, Lymphocytes % (Manual) 10, Blood Morphology Comment NORMAL 01/13/21 06:00: Prothrombin Time 12.7, INR Comment 0.9, Activated Partial Thromboplast Time 30, Sodium Level 140, Potassium Level 4.0, Chloride Level 109H, Carbon Dioxide Level 24, Anion Gap 7, Blood Urea Nitrogen 17, Creatinine 1.74H, Estimat Glomerular Filtration Rate 28, BUN/Creatinine Ratio 10, Glucose Level 173H, Calcium Level 9.2, Corrected Calcium 9.8, Total Bilirubin 0.2, Aspartate Amino Transf (AST/SGOT) 10, Alanine Aminotransferase (ALT/SGPT) 15, Alkaline Phosphatase 140H , Total Protein 5.8L, Albumin 3.3 Laboratory Tests 01/12/21 16:40 01/13/21 05:50 01/13/21 06:00 A/P-Cardiology Assessment/Admission Diagnosis Large, left-sided effusion, likely para-pneumonic COPD due to chronic smoking of cigarettes (continues to smoke) Probable component of acute HFpEF (as indicated by thoracic radiologic studies during this admission) Obesity (BMI 37) and besity-hypovent with RALF, treated with CPAP Pulm hypertension, likely due to obesity-hypoventilation and RALF, followed by her classified ad taker CAD - Card cath of 03/25/19: mild to mod CAD, mild elevation of LVEDP - Echo of September 25, 2019: LVEF 60-65%, grade 2 diastolic dysfunction. Mod PASP approx 64 mmHg CKD 3 - followed by her molder Hypertension, by history Hyperlipidemia, by history Chronic tobacco use (approx 40 pack-years) that she quit in mid-Feb 2019 Ventral abdominal hernia Carotid arterial disease. - S/p R [facility] in [place], [place]. Pt does not recall surgeon or year of surgery. - Carotid u/s of September 18, 2019 showed mild bilat dz Discussion and Recomendations * Diagnostic and therapeutic thoracentesis recommended * Dr Rose managing pneumonia * Diuretics as needed and as tolerated to treat fluid overload / diastolic CHF * Monitor labs closely * Repeat echo * I discussed her CV issues with her and answered questions in detail * Advised to quit smoking immediately and completely KARINE ALEXIS MD FACP FAC CCDS Jan 13, 2021 14:03
[2021-01-13 16:00] VITALS: BP 136/65
--- NOTE | 2021-01-13 18:24 | Diagnostic Imaging Report ---
Indication: Recent thoracentesis AP upright view of the chest is obtained with comparison made study of 03/31/2019. Heart size is at the upper limits of normal. There is approximately 15% left apical pneumothorax. There is blunting of costophrenic sulci bilaterally. IMPRESSION: Approximately 15% left pneumothorax. Dictated by: Dictated on workstation # [id number]
[2021-01-13] MEDS: HYDROcodone/APAP 5 MG/325 MG (LORTAB) TAB PO PRN (19:39)
[2021-01-13 20:00] VITALS: BP 131/59
[2021-01-13 23:30] VITALS: BP 119/56
[2021-01-13] MEDS: MELATONIN 3 MG TABLET PO PRN (23:49)
--- NOTE | 2021-01-14 00:43 | OPERATIVE REPORT ---
DATE OF SERVICE: 01/13/2021 ATTENDING PRIMARY CARE PHYSICIAN: Dr. Rose. PREPROCEDURE DIAGNOSIS: Symptomatic left pleural effusion. POSTPROCEDURE DIAGNOSIS: Symptomatic left pleural effusion. PROCEDURE: Left thoracentesis. SURGEON: Skip Ortega MD ANESTHESIA: Local. ESTIMATED BLOOD LOSS: Minimal. FINDINGS: 900 mL of straw yellow transudative fluid. DISPOSITION: The patient tolerated the procedure well. INDICATIONS: The patient is an 80-year-old female with history of multiple medical problems who presented to the Emergency Department with worsening exertional shortness of breath as well as bilateral lower extremity edema. She has a history of coronary artery disease, COPD as well as CHF. Chest x-ray and CT scan were consistent with a large left pleural effusion. She did not report any cough or sputum production as well as no fever, no chills. DESCRIPTION OF PROCEDURE: The patient sat on the side of her bed with her back flexed forward. The back was prepped and draped in standard surgical fashion. At approximately the posterolateral eighth intercostal space, the skin, subcutaneous tissue, muscle layers and parietal pleura were anesthetized. A vertical skin incision was made using 11 blade. Catheter and trocar were then introduced withdrawing of straw yellow transudative fluid. The catheter was then advanced over the trocar without any resistance and connected to negative pressure evacuation containers. Approximately 900 mL of fluid was evacuated. The catheter was then removed under positive pressure ventilation while holding pressure over the catheter and an Op-Site placed. The patient tolerated the procedure well. We will send the fluid for culture and sensitivity as well as cytology. We will also get a post-procedure chest x-ray. 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
[2021-01-14] MEDS: RT-ALBUTEROL SULF 2.5 MG/3 ML PRE-MIX VIAL INH SCH ×6 (02:39→22:14)
[2021-01-14 04:00] VITALS: BP 129/74
[2021-01-14 05:38] LABS: BASOPHILS % (AUTO) 0 % (0-10); EOSINOPHILS % (AUTO) 0 % (0-10); HEMATOCRIT 37 % (35-52); HEMOGLOBIN 11.5 g/dL (11.5-16.0); LYMPHOCYTES # (AUTO) 0.5 10^3/uL (1.0-4.0); LYMPHOCYTES % (AUTO) 4 % (12-44); MEAN CORPUSCULAR HEMOGLOBIN 30 pg (25-34); MEAN CORPUSCULAR HGB CONC 31 g/dL (32-36); MEAN CORPUSCULAR VOLUME 94 fL (80-99); MEAN PLATELET VOLUME 10.7 fL (9.0-12.2); MONOCYTES # (AUTO) 0.1 10^3/uL (0.0-1.0); MONOCYTES % (AUTO) 1 % (0-12); NEUTROPHILS # (AUTO) 10.5 10^3/uL (1.8-7.8); NEUTROPHILS % (AUTO) 94 % (42-75); PLATELET COUNT 165 10^3/uL (130-400); WHITE BLOOD COUNT 11.1 10^3/uL (4.3-11.0)
[2021-01-14 05:51] LABS: ALBUMIN 3.3 GM/DL (3.2-4.5); POTASSIUM 3.9 MMOL/L (3.6-5.0)
[2021-01-14 05:52] LABS: CALCIUM 9.1 MG/DL (8.5-10.1)
[2021-01-14 05:54] LABS: TOTAL PROTEIN 5.5 GM/DL (6.4-8.2)
[2021-01-14 05:55] LABS: BILIRUBIN,TOTAL 0.2 MG/DL (0.1-1.0)
[2021-01-14 05:57] LABS: CREATININE SERUM 2.5 MG/DL (0.60-1.30)
[2021-01-14] MEDS: CATHETER FLUSH 10 ML SYR IV SCH ×3 (06:06→20:12)
[2021-01-14] MEDS: methylPREDNISolone 125 MG (Solu-MEDROL) VIAL IV SCH (06:06)
[2021-01-14] MEDS: FUROSEMIDE 40 MG/4 ML INJ (LASIX) IV SCH (06:06)
[2021-01-14] MEDS: CEFEPIME 1,000 MG/SWFI 10 ML IV PUSH IV SCH ×4 (06:06→17:21)
[2021-01-14 08:00] VITALS: BP 112/63
[2021-01-14] MEDS: ACETAMINOPHEN 325 MG TABLET PO PRN (08:48)
--- NOTE | 2021-01-14 11:00 | Progress Note ---
Subjective Date Seen by a Provider: Jan 14, 2021 Time Seen by a Provider: 10:45 Subjective/Events-last exam doing ok. no increase SOB. tolerating diet. pain controlled. Focused Exam Lactate Level 01/12/21 18:05: Lactic Acid Level 0.71 Objective Exam Vital Signs Date Time Temp Pulse Resp B/P (MAP) Pulse Ox O2 Delivery O2 Flow Rate FiO2 01/14/21 10:30 96 Nasal Cannula 5.00 01/14/21 08:00 36.2 97 20 112/63 (79) 92 Nasal Cannula 5.00 01/14/21 08:00 Nasal Cannula 5.00 01/14/21 07:20 93 Nasal Cannula 5.00 01/14/21 07:00 96 01/14/21 04:00 36.4 94 18 129/74 (92) 96 Nasal Cannula 5.00 01/14/21 02:39 97 Nasal Cannula 5.00 01/14/21 01:00 94 01/13/21 23:30 36.5 103 20 119/56 (77) 94 Nasal Cannula 5.00 01/13/21 20:00 36.4 104 20 131/59 (83) 95 Nasal Cannula 5.00 01/13/21 19:50 Nasal Cannula 5.00 01/13/21 19:09 96 Nasal Cannula 5.00 01/13/21 19:00 100 01/13/21 16:00 36.0 95 20 136/65 (88) 93 Nasal Cannula 5.00 01/13/21 15:16 90 Nasal Cannula 5.00 01/13/21 13:00 96 01/13/21 12:00 36.2 92 20 119/71 (87) 92 Nasal Cannula 5.00 I & O 01/14/21 07:00 Intake Total 510 ml Output Total 1650 ml Balance -1140 ml Capillary Refill : Less Than 3 Seconds General Appearance: No Apparent Distress HEENT: PERRL/EOMI Neck: Full Range of Motion Respiratory: Decreased Breath Sounds Cardiovascular: Regular Rate, Rhythm Gastrointestinal: normal bowel sounds, soft Extremity: Normal Capillary Refill Neurologic/Psychiatric: Alert, Oriented x3 Skin: Normal Color Lymphatic: No Adenopathy Results Lab Laboratory Tests 01/14/21 05:20: White Blood Count 11.1H, Red Blood Count 3.89, Hemoglobin 11.5, Hematocrit 37, Mean Corpuscular Volume 94, Mean Corpuscular Hemoglobin 30, Mean Corpuscular Hemoglobin Concent 31L, Red Cell Distribution Width 14.6H, Platelet Count 165, Mean Platelet Volume 10.7, Immature Granulocyte % (Auto) 1, Neutrophils (%) (Auto) 94H, Lymphocytes (%) (Auto) 4L, Monocytes (%) (Auto) 1, Eosinophils (%) (Auto) 0, Basophils (%) (Auto) 0, Neutrophils # (Auto) 10.5H, Lymphocytes # (Auto) 0.5L, Monocytes # (Auto) 0.1, Eosinophils # (Auto) 0.0, Basophils # (Auto) 0.0, Immature Granulocyte # (Auto) 0.1, Sodium Level 138, Potassium Level 3.9, Chloride Level 106, Carbon Dioxide Level 22, Anion Gap 10, Blood Urea Nitrogen 30H, Creatinine 2.50#H, Estimat Glomerular Filtration Rate 19, BUN/Creatinine Ratio 12, Glucose Level 198H, Calcium Level 9.1, Corrected Calcium 9.7, Total Bilirubin 0.2, Aspartate Amino Transf (AST/SGOT) 10, Alanine Aminotransferase (ALT/SGPT) 15, Alkaline Phosphatase 117, Total Protein 5.5L, Albumin 3.3 Microbiology 01/12/21 Blood Culture - Preliminary, Resulted No growth Assessment/Plan Assessment/Plan Assess & Plan/Chief Complaint sx left pl eff s/p thoracentesis with left ptx. will place small CT with water seal SKIP ORTEGA MD Jan 14, 2021 11:00
[2021-01-14] MEDS ORDERED: fentaNYL INJ 100 MCG/2 ML AMP IVP PRN (11:15)
[2021-01-14] MEDS ORDERED: LIDOCAINE/EPI 1%-1:100,000 (XYLOCAINE) 10 ML INJ ONE (11:15)
--- NOTE | 2021-01-14 11:59 | Progress Note - Hospitalist ---
MARISSA HALL MED STUDENT 01/14/21 1159: Subjective HPI/CC On Admission Date Seen by Provider: Jan 14, 2021 Time Seen by Provider: 08:15 dyspnea and pleural effusion Subjective/Events-last exam This is Janette an 80 yo female on day 3 of her hospital stay with the chief complaint of dyspnea and pleural effusion. Upon entering the room she was sitting up in bed speaking with her son who visiting. She was calm, cooperative, and engaged during questioning. She stated that she was having significant LUQ pain and related the pain to the thoracentesis recently completed. She stated that the pain was an 8/10 on the pain scale and had requested pain medication from the nurse. She continues to have a cough and experiencing SOB with O2 saturation of 96% on 5L N/C. Pt stated that the breathing treatments that she is receiving are helping significantly. Dr. Gamino was able to get 900ml of straw yellow transudative fluid off of the left lung and it was sent to the lab to be studied. An ECHO was completed on 09/24 which revealed an EF of 60-65% with a PASP of 64mmHg. CXR on 01/13 revealed approximately 15% left pneumothorax. Review of Systems Pulmonary: Dyspnea, Cough Gastrointestinal: Abdominal Pain (LUQ) Focused Exam Lactate Level 01/12/21 18:05: Lactic Acid Level 0.71 Time of Focused Exam: 08:15 Respiratory: Chest Non Tender, No Accessory Muscle Use, Decreased Breath Sounds (JALEESA), Wheezing (R side) Cardiovascular: Regular Rate, Rhythm, No Gallop, No Murmur, Normal Peripheral Pulses Skin: normal color, warm/dry Objective Exam Vital Signs Vital Signs Date Time Temp Pulse Resp B/P (MAP) Pulse Ox O2 Delivery O2 Flow Rate FiO2 01/14/21 12:08 36.4 95 20 106/61 (76) 93 Nasal Cannula 5.00 01/12/21 23:14 40 Capillary Refill : Less Than 3 Seconds General Appearance: No Apparent Distress, WD/WN, Obese HEENT: PERRL/EOMI, Pharynx Normal Neck: Normal Inspection, Non Tender, Supple Respiratory: Chest Non Tender, No Accessory Muscle Use, No Respiratory Distress, Decreased Breath Sounds (JALEESA), Wheezing (R side) Cardiovascular: Regular Rate, Rhythm, No Gallop, No Murmur, Normal Peripheral Pulses Gastrointestinal: Normal Bowel Sounds, Soft, Tenderness (LUQ) Rectal: Deferred Back: No Vertebral Tenderness Extremity: Normal Inspection, Non Tender, No Calf Tenderness, Pedal Edema (nonpitting) Neurologic/Psychiatric: Alert, Oriented x3, No Motor/Sensory Deficits, Normal Mood/Affect Skin: Normal Color, Warm/Dry Results/Procedures Lab Laboratory Tests 01/14/21 05:20 Patient resulted labs reviewed. Assessment/Plan Assessment and Plan Assess & Plan/Chief Complaint SOB continue supplemental O2- at 5L on 01/14 monitor vitals and labs ABG on 01/12 7.33/46/77 continue albuterol inhaler add steriod moderate to large pleural effusion on the left-resolved small pleural effusions on the right consult surgery thoracentesis- completed 01/14 15% left pneumothorax repeat CXR DVT prophylaxis lovenox encourage IS use cardiomegaly with central vascular congestion continue Lasix chronic granulomatous disease left sided popliteal cyst CKD BUN of 30 and Cre of 2.50 on 01/14 monitor kidney function RALF encourage CPAP use at night COPD continue antibiotic and steriod use- cefepime and methylprednisolone continue home medications elevated alk phos of 140 on 01/12 umbilical hernia headache Tylenol PRN smoking history leukocytosis WBC of 11.1 on 01/14 LUQ pain pain medication PRN PAH PASP of 64mmHg on last ECHO 09/24 LEONOR CHAVIRA DO 01/15/21 0618: Subjective Subjective/Events-last exam Pt doing a little better Significant wheezing will prompt Solumedrol initiation PT and OT will be ordered Repeat CXR pending Conferred with Dr. Layton Pneumothorax s/p thorocentesis of 15% On five liters continuous oxygen Creatinine went up from 2.5 so will hold Lasix Pulmonary HTN noted at 64 on echo Thorocentesis removed 900 CCs of fluid Review of Systems General: Fatigue Pulmonary: Dyspnea Objective Exam General Appearance: No Apparent Distress, WD/WN, Chronically ill, Obese Respiratory: No Accessory Muscle Use, No Respiratory Distress, Decreased Breath Sounds (JALEESA) Cardiovascular: Regular Rate, Rhythm Assessment/Plan Assessment and Plan Assess & Plan/Chief Complaint Appreciate Dr. LAYTON Minimize Lasix May need chest tube Supervisory-Addendum Brief Verification & Attestation Participated in pt care: history, MDM, physical Personally performed: exam, history, MDM, supervision of care Care discussed with: Medical Student Procedures: n/a Results interpretation: Verified all documentation Verification and Attestation of Medical Student E/M Service A medical student performed and documented this service in my presence. I reviewed and verified all information documented by the medical student and made modifications to such information, when appropriate. I personally performed the physical exam and medical decision making. Leonor Chavira, Jan 15, 2021,06:17 MARISSA HALL MED STUDENT Jan 14, 2021 11:59 LEONOR CHAVIRA DO Jan 15, 2021 06:18
[2021-01-14 12:08] VITALS: BP 106/61
--- NOTE | 2021-01-14 12:18 | Diagnostic Imaging Report ---
INDICATION: Left pneumothorax EXAM: Portable chest at 10:53 AM FINDINGS: There is complete atelectasis of the left lung with a large left pneumothorax and probable effusion. IMPRESSION: Large left pneumothorax. CRITICAL FINDING Report given to nurse (Dia Lovelace) at 12:17 PM 01/14/2021/cb Dictated by: Dictated on workstation # [id number]
[2021-01-14] MEDS: methylPREDNISolone 125 MG (Solu-MEDROL) VIAL IVP SCH ×3 (12:20→23:55)
--- NOTE | 2021-01-14 13:24 | Pulmonary Progress Note ---
Subjective Date Seen by a Provider: Jan 14, 2021 Time Seen by a Provider: 13:19 Subjective/Events-last exam Had left PMNTX, 900 ml of fluid, described as transudate looking but lab results not ready CXR done this am shows large pneumothorax on left, Pt looks about same with SpO2 in mid 90's on 5 lpm I spoke to Dr Layton who will place chest tube, went over labs to order Pt feels breathing same, Spont RR in low 20's Review of Systems Pulmonary: Dyspnea Sepsis Event Evaluation Height, Weight, BMI Height: '" Weight: 205lbs. 8.0oz. kg; 36.76 BMI Method: Focused Exam Lactate Level 01/12/21 18:05: Lactic Acid Level 0.71 Time of Focused Exam: 08:15 Exam Exam Patient acknowledged, consented, and participated in this virtual visit which was conducted using real time audio/video Vital Signs Date Time Temp Pulse Resp B/P (MAP) Pulse Ox O2 Delivery O2 Flow Rate FiO2 01/14/21 12:50 99 01/14/21 12:08 36.4 95 20 106/61 (76) 93 Nasal Cannula 5.00 01/14/21 10:30 96 Nasal Cannula 5.00 01/14/21 08:00 36.2 97 20 112/63 (79) 92 Nasal Cannula 5.00 01/14/21 08:00 Nasal Cannula 5.00 01/14/21 07:20 93 Nasal Cannula 5.00 01/14/21 07:00 96 01/14/21 04:00 36.4 94 18 129/74 (92) 96 Nasal Cannula 5.00 01/14/21 02:39 97 Nasal Cannula 5.00 01/14/21 01:00 94 01/13/21 23:30 36.5 103 20 119/56 (77) 94 Nasal Cannula 5.00 01/13/21 20:00 36.4 104 20 131/59 (83) 95 Nasal Cannula 5.00 01/13/21 19:50 Nasal Cannula 5.00 01/13/21 19:09 96 Nasal Cannula 5.00 01/13/21 19:00 100 01/13/21 16:00 36.0 95 20 136/65 (88) 93 Nasal Cannula 5.00 01/13/21 15:16 90 Nasal Cannula 5.00 I & O 01/14/21 07:00 Intake Total 510 ml Output Total 1650 ml Balance -1140 ml Height & Weight Height: '" Weight: 205lbs. 8.0oz. kg; 36.76 BMI Method: General Appearance: No Apparent Distress, WD/WN, Obese HEENT: PERRL/EOMI, Pharynx Normal Neck: Normal Inspection, Non Tender, Supple Respiratory: Chest Non Tender, No Accessory Muscle Use, No Respiratory Distress, Decreased Breath Sounds (JALEESA), Wheezing (R side), Other (decreased BS on left side, both sides have wheezing) Cardiovascular: Regular Rate, Rhythm, No Gallop, No Murmur, Normal Peripheral Pulses Capillary Refill: Less Than 3 Seconds Gastrointestinal: normal bowel sounds, soft Extremity: Normal Inspection, Non Tender, No Calf Tenderness, Pedal Edema (nonpitting), Other Neurologic/Psychiatric: Alert, Oriented x3, No Motor/Sensory Deficits, Normal Mood/Affect Skin: Normal Color, Warm/Dry Lymphatic: No Adenopathy Results Lab Laboratory Tests 01/12/21 16:40 01/13/21 05:50 01/13/21 06:00 01/14/21 05:20 Assessment/Plan Assessment/Plan Has large left PMNTX on CXR but no mediastinal shift. Patient in mild resp distress but SpO2 holding in low to mid 90's I spoke to Dr Layton who will come shortly to place chest tube. I spoke to patent and family about her medical condition Will wait for labs but looks to me this more from CHF and fluid is probably t ransudative Time spent with patient (mins): 30 WADE GARDNER MD Jan 14, 2021 13:24
[2021-01-14] MEDS: ALPRAZolam 0.25 MG (XANAX) TAB PO PRN (13:54)
[2021-01-14] MEDS: fentaNYL INJ 100 MCG/2 ML AMP IVP PRN ×5 (14:10→18:50)
--- NOTE | 2021-01-14 14:17 | Physical Therapy Evaluation ---
PT Evaluation-General Medical Diagnosis Admission Date Jan 12, 2021 at 17:35 Medical Diagnosis: dyspnea/Pleural effusion Onset Date: Jan 12, 2021 Therapy Diagnosis Therapy Diagnosis: debility Height/Weight Weight (Pounds): 205 Weight (Ounces): 8.0 Precautions Precautions/Isolations: Fall Prevention, Standard Precautions Referral Physician: Milton Reason for Referral: Evaluation/Treatment Medical History Pertinent Medical History: CAD, COPD, HTN, Neuropathy, Smoking Current History ER secondary to SOA, hypoxia Reviewed History: Yes Social History Home: Single Level Current Living Status: Alone Prior Prior Level of Function SCALE: Activities may be completed with or without assistive devices. 0-Zumitvgnuc-pxqsbfx completes the activity by him/herself with no assistance from a helper. 5-Set-up or Clean-up Assistance-helper sets up or cleans up; patient completes activity. [place] assists only prior to or following the activity. 4-Supervision or Touching Assistance-helper provides verbal cues and/or touching/steadying and/or contact guard assistance as patient completes a ctivity. Assistance may be provided throughout the activity or intermittently. 3-Partial/Moderate Assistance-helper does LESS THAN HALF the effort. [place] lifts, holds or supports trunk or limbs, but provides less than half the effort. 2-Substantial/Maximal Assistance-helper does MORE THAN HALF the effort. [place] lifts or holds trunk or limbs and provides more than half the effort. 0-Pcaanajkp-ryruen does ALL the effort. Patient does none of the effort to complete the activity. Or, the assistance of 2 or more helpers is required for the patient to complete the activity. If activity was not attempted, code reason: 7-Patient Refused. 9-Not Applicable-not attempted and the patient did not perform the activity before the current illness, exacerbation or injury. 10-Not Attempted due to Environmental Limitations-(lack of equipment, weather restraints, etc.). 88-Not Attempted due to Medical Conditions or Safety Concerns. Bed Mobility: 6 Transfers (B,C,W/C): 6 Gait: 6 Stairs: 6 Indoor Mobility (Ambulation): Independent Stairs: Independent Prior Devices Use: None PT Evaluation-Current Subjective Patient agrees to PT. Objective Patient Orientation: Normal For Age Attachments: Oxygen ROM/Strength ROM Lower Extremities bilateral LE WFL Strength Lower Extremities 4/5 grossly bilateral LE Integumentary/Posture Bowel Incontinence: No Bladder Incontinence: No Posture WFL Neuromuscular (Tone, Coordination, Reflexes) grossly intact Sensory Vision: Functional Hearing: Functional Transfers Roll Left to Right (QC): 6 Sit to Lying (QC): 6 Lying to Sitting/Side of Bed(Q: 6 Sit to Stand (QC): 6 Toilet Transfer (QC): 6 Gait Mode of Locomotion: Walk Anticipated Mode of Locomotion: Walk Walk 10 feet (QC): 6 Distance: 10' Gait Assistive Device: None Comments/Gait Description safe and functional with no deviation Balance Sitting Static: Normal Sitting Dynamic: Normal Standing Static: Normal Standing Dynamic: Normal Assessment/Needs 80 y.o. female, is currently at independent [facility] with gross motor skills and declined farther PT intervention. Rehab Potential: Fair PT Plan Treatment/Plan Treatment Plan: Discontinue PT Treatment Duration: Jan 14, 2021 Frequency: 1 time per week Estimated Hrs Per Day: .25 hour per day Patient and/or Family Agrees t: Yes Time/GCodes Time In: 1250 Time Out: 1305 Total Billed Treatment Time: 15 Total Billed Treatment 1 visit EVLowC 15 min SHERRI HERMOSILLO PT Jan 14, 2021 14:17
[2021-01-14] MEDS ORDERED: LORazepam INJ 2 MG/ML (ATIVAN) VIAL IVP PRN (14:30)
[2021-01-14 14:58] LABS: BODY FLUID APPEARENCE SLT CLDY; BODY FLUID COLOR YELLOW; BODY FLUID RBC COUNT 1300 /uL; BODY FLUID SOURCE THORACEN; BODY FLUID WBC TOTAL COUNT 200 /uL
[2021-01-14 14:59] LABS: BF OTHER CELLS 27 %; LYMPHOCYTES,BODY FLUID 34 %
[2021-01-14 15:01] LABS: BODY FLUID PH 7
[2021-01-14 15:25] LABS: GLUCOSE,BODY FLUID 167 MG/DL; TOTAL PROTEIN,BODY FLUID 2.7 G/DL
--- NOTE | 2021-01-14 15:30 | Occupational Therapy Eval ---
OT Evaluation-General/PLF Medical Diagnosis Admission Date Jan 12, 2021 at 17:35 Medical Diagnosis: dyspnea/Pleural effusion Onset Date: Jan 12, 2021 Therapy Diagnosis Therapy Diagnosis: Impaired ADls Height/Weight Weight (Pounds): 205 Weight (Ounces): 8.0 Precautions Precautions/Isolations: Fall Prevention, Standard Precautions Referral Physician: Milton Ojeda Reason: Evaluation/Treatment Medical History Pertinent Medical History: CAD, COPD, HTN, Neuropathy, Smoking Reviewed History: Yes Social History Home: Single Level Current Living Status: Other Family Pt reports living with granddaughter in single level home. She was indep with ADLs and her granddaughter performed all IADLs including medication management. She was still driving and not using any AD prior to admission. She has a tub/shower and prefers to take baths. Grab bars in tub. ADL-Prior Level of Function SCALE: Activities may be completed with or without assistive devices. 3-Orzrcfegeo-klmsvwi completes the activity by him/herself with no assistance from a helper. 5-Set-up or Clean-up Assistance-helper sets up or cleans up; patient completes activity. [place] assists only prior to or following the activity. 4-Supervision or Touching Assistance-helper provides verbal cues and/or touching/steadying and/or contact guard assistance as patient completes activity. Assistance may be provided throughout the activity or intermittently. 3-Partial/Moderate Assistance-helper does LESS THAN HALF the effort. [place] lif ts, holds or supports trunk or limbs, but provides less than half the effort. 2-Substantial/Maximal Assistance-helper does MORE THAN HALF the effort. [place] lifts or holds trunk or limbs and provides more than half the effort. 0-Ytxdedjmv-pqiold does ALL the effort. Patient does none of the effort to complete the activity. Or, the assistance of 2 or more helpers is required for the patient to complete the activity. If activity was not attempted, code reason: 7-Patient Refused. 9-Not Applicable-not attempted and the patient did not perform the activity before the current illness, exacerbation or injury. 10-Not Attempted due to Environmental Limitations-(lack of equipment, weather restraints, etc.). 88-Not Attempted due to Medical Conditions or Safety Concerns. Self Care: Independent Functional Cognition: Needed Some Help DME/Equipment: Grab Bars Drive Self: Yes OT Current Status Subjective "I just got a chest tube put in." Pain Numeric Pain Scale: 8 Location Body Site: Chest Comment: Pt received new chest tube placement just prior to OT arrival. Mental Status/Objective Patient Orientation: Person, Place, Situation Attachments: Chest Tube, IV Current Upper Extremity ROM WFL Upper Extremity Strength Not tested secondary to new chest tube placed and increased pain. Other Treatments Pt declined any OOB or EOB activities secondary to new chest tube placed just prior to OT arrival. She was able to perform bed mobility with Supervision and extra effort/time secondary to pain. Grooming tasks performed at bed level with set up. OT to continue to assess ADLs and functional transfers at next session. Per PT eval, Pt at prior level of function for transfers. 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 2=Patient will verbalize/demonstrate understanding of assistive devices/modifica tions for ADL. 3=Patient will improve strength/tolerance for activity to enable patient to perform ADL's. OT Education/Plan Problem List/Assessment Assessment: Decreased Activ Tolerance, Impaired Self-Care Skills Discharge Recommendations Plan/Recommendations: Continue POC Therapy Discharge Recommendati: Other, See Comments, Home & Family, Post Acute OT Comment Continue to assess. Pt may be able to d/c home with family support pending progress and medical stability. Treatment Plan/Plan of Care Patient would benefit from OT for education, treatment and training to promote independence in ADL's, mobility, safety and/or upper extremity function for ADL's. Plan of Care: ADL Retraining, Functional Mobility, UE Funct Exercise/Act Treatment Duration: Jan 21, 2021 Frequency: 5 times per week Estimated Hrs Per Day: .25 hour per day Agreement: Yes Rehab Potential: Fair Time/GCodes Start Time: 15:04 Stop Time: 15:16 Total Time Billed (hr/min): 12 Billed Treatment Time 1JASON Meghan OT Jan 14, 2021 15:30
--- NOTE | 2021-01-14 15:44 | Diagnostic Imaging Report ---
INDICATION: Chest tube placement. TIME OF EXAM: 03:27 p.m. COMPARISON: Correlation is made with prior chest one day earlier. FINDINGS: Left-sided chest tube has been placed. There continues to be a left-sided pneumothorax measuring approximately 4.4 cm at the apex. There is some parenchymal consolidation in the left upper lobe as well. Right lung is clear. No effusion is detected. Heart is enlarged but stable. IMPRESSION: Continued left-sided pneumothorax despite left chest tube placement. Dictated by: Dictated on workstation # [id number]
--- NOTE | 2021-01-14 16:23 | Progress Note - Cardiology ---
Cardiology SOAP Progress Note Subjective: Some discomfort from chest tube No other chest pain Shortness of breath present but somewhat better Gen malaise No palp or syncope No n/v/d Objective: I&O/Vital Signs 01/14/21 01/14/21 01/14/21 01/14/21 07:00 07:20 08:00 08:00 Temp 36.2 Pulse 96 97 Resp 20 B/P (MAP) 112/63 (79) Pulse Ox 93 92 O2 Delivery Nasal Cannula Nasal Cannula Nasal Cannula O2 Flow Rate 5.00 5.00 5.00 01/14/21 01/14/21 01/14/21 10:30 12:08 12:50 Temp 36.4 Pulse 95 99 Resp 20 B/P (MAP) 106/61 (76) Pulse Ox 96 93 O2 Delivery Nasal Cannula Nasal Cannula O2 Flow Rate 5.00 5.00 01/14/21 00:00 Intake Total 300 ml Output Total 1400 ml Balance -1100 ml Weight (Pounds): 205 Weight (Ounces): 8.0 Constitutional: AAO x 3, well-developed, well-nourished Respiratory: No accessory muscle use; other (prolonged exp, scattered exp wheezes, diminished bs at L base) Cardiovascular: regular rate-rhythm, S1 and S2, systolic murmur (soft CRISTIANO at card base) Gastrointestional: No tender; soft; No guarding, No rebound; audible bowel sounds Extremities: No clubbing, No cyanosis, No significant edema Neurologic/Psychiatric: oriented x 3, other (moves all limbs equally) Skin: normal color, warm/dry; No rash on exposed areas, No ulcerations on expo sed areas Results/Procedures: Labs Laboratory Tests 01/13/21 17:55: Body Fluid Source THORACEN, Body Fluid Color YELLOW, Body Fluid Appearance SLT CLDY, Body Fluid pH 7, Body Fluid WBC 200, Body Fluid RBC 1300, Body Fluid Polynuclear WBCs 24, Body Fluid Mononuclear WBCs 5, Body Fluid Lymphocytes 34, Body Fluid Eosinophils 10, Body Fluid Other Cells 27, Body Fluid Glucose 167, Body Fluid Total Protein 2.7 01/14/21 05:20: White Blood Count 11.1H, Red Blood Count 3.89, Hemoglobin 11.5, Hematocrit 37, Mean Corpuscular Volume 94, Mean Corpuscular Hemoglobin 30, Mean Corpuscular Hemoglobin Concent 31L, Red Cell Distribution Width 14.6H, Platelet Count 165, Mean Platelet Volume 10.7, Immature Granulocyte % (Auto) 1, Neutrophils (%) (Auto) 94H, Lymphocytes (%) (Auto) 4L, Monocytes (%) (Auto) 1, Eosinophils (%) (Auto) 0, Basophils (%) (Auto) 0, Neutrophils # (Auto) 10.5H, Lymphocytes # (Auto) 0.5L, Monocytes # (Auto) 0.1, Eosinophils # (Auto) 0.0, Basophils # (Auto) 0.0, Immature Granulocyte # (Auto) 0.1, Sodium Level 138, Potassium Level 3.9, Chloride Level 106, Carbon Dioxide Level 22, Anion Gap 10, Blood Urea Nitrogen 30H, Creatinine 2.50#H, Estimat Glomerular Filtration Rate 19, BUN/Creatinine Ratio 12, Glucose Level 198H, Calcium Level 9.1, Corrected Calcium 9.7, Total Bilirubin 0.2, Aspartate Amino Transf (AST/SGOT) 10, Alanine Aminotransferase (ALT/SGPT) 15, Alkaline Phosphatase 117, Total Protein 5.5L, Albumin 3.3 01/14/21 15:00: Microbiology 01/12/21 Blood Culture - Preliminary, Resulted No growth Laboratory Tests 01/12/21 16:40 01/13/21 05:50 01/13/21 06:00 01/14/21 05:20 A/P: Assessment: Large, left-sided effusion, likely para-pneumonic, s/p thoracentesis COPD due to chronic smoking of cigarettes (continues to smoke) Probable component of acute HFpEF (as indicated by thoracic radiologic studies during this admission) Obesity (BMI 37) and besity-hypovent with RALF, treated with CPAP Pulm hypertension, 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 Mod PASP approx 64 mmHg CKD 3 - followed by her acid tank cleaner Hypertension, by history Hyperlipidemia, by history Chronic tobacco use (approx 40 pack-years) that she quit in mid-Feb 2019 Ventral abdominal hernia Carotid arterial disease. - S/p R CEA in [place], [place]. Pt does not recall surgeon or year of surgery. - Carotid u/s of September 18, 2019 showed mild bilat dz Plan: * Dr Rose managing pneumonia * Diuretics as needed and as tolerated to treat fluid overload / diastolic CHF * Monitor labs closely * Advised to quit smoking immediately and completely KARINE ALEXIS MD [facility] Jan 14, 2021 16:23
[2021-01-14 16:30] LABS: BODY FLUID APPEARENCE SLT CLDY; BODY FLUID COLOR YELLOW; BODY FLUID SOURCE THORACENTESIS
[2021-01-14 16:31] LABS: BODY FLUID RBC COUNT 2100 /uL; BODY FLUID WBC TOTAL COUNT 1395 /uL
--- NOTE | 2021-01-14 16:35 | Progress Note ---
Standard Progress Note Progress Notes/Assess & Plan Date Seen by a Provider: Jan 14, 2021 Time Seen by a Provider: 16:32 Progress/Assessment & Plan Had #24 chest tube, post chest tube CXR still shows a PMNTX, tube is not leaking air, pt looks about same with some pain at insertion site of chest tube Would repeat CXR around 8 pm to make sure PMNTX is resolving Spoke to pt, family and Dr Kinjal Gardner MD Focused Exam Lactate Level 01/12/21 18:05: Lactic Acid Level 0.71 Time of Focused Exam: 08:15 WADE GARDNER MD Jan 14, 2021 16:35
[2021-01-14 16:41] VITALS: BP 138/65
[2021-01-14 16:45] LABS: GLUCOSE,BODY FLUID 225 MG/DL; TOTAL PROTEIN,BODY FLUID 2.2 G/DL
[2021-01-14 16:48] LABS: BODY FLUID PH 7
[2021-01-14 17:06] LABS: BF OTHER CELLS 12 %; LYMPHOCYTES,BODY FLUID 23 %
[2021-01-14 19:19] VITALS: BP 117/62
[2021-01-14] MEDS: HYDROcodone/APAP 5 MG/325 MG (LORTAB) TAB PO PRN (20:12)
--- NOTE | 2021-01-14 20:46 | Pulmonary Progress Note ---
Diagnosis/Problems Diagnosis/Problems (1) Pneumothorax, left Status: Acute Assessment & Plan: Unable to visualize patient Follow-up CXR 01/14/21 at 1952 reviewed in PACS: Left pneumothorax appears mostly resolved, Left chest drain in place Recorded VS reviewed, patient on 5L O2 per EMR RUMA ROE MD Jan 14, 2021 20:46
--- NOTE | 2021-01-14 22:07 | Diagnostic Imaging Report ---
INDICATION: Pneumothorax, follow-up. TECHNIQUE: Single view chest 7:52 PM. CORRELATION STUDY: 01/14/2021. FINDINGS: Chest tube over the left lower chest remains in place. There has been significant reduction of the previously left-sided pneumothorax. Only a very small sliver of left apical pneumothorax remaining. Bilateral pulmonary opacities are overall generally stable to perhaps slightly increased. Heart size is enlarged but stable. Vasculature is prominent. IMPRESSION: 1. Significant reduction of the previously noted left-sided pneumothorax. Sliver of an apical pneumothorax remains. 2. Bilateral pulmonary opacities which may be reflective of infiltrate and/or edema and overall appears increased from prior. Dictated by: Dictated on workstation # [id number]
--- NOTE | 2021-01-14 23:27 | OPERATIVE REPORT ---
DATE OF SERVICE: 01/13/2021 ATTENDING BULK STATION OPERATOR: Bethany Cuadra APRN PREOPERATIVE DIAGNOSIS: Left pneumothorax and retained pleural effusion. POSTOPERATIVE DIAGNOSIS: Left pneumothorax and retained pleural effusion. PROCEDURE: Placement of left 24-Cuban chest tube. SURGEON: Skip Ortega MD ANESTHESIA: Local. ESTIMATED BLOOD LOSS: Minimal. FINDINGS: Approximately 500 mL of straw yellow transudative fluid. No air leak. DISPOSITION: The patient tolerated the procedure well. INDICATIONS: The patient is an 80-year-old female with a history of COPD, coronary artery disease and congestive heart failure. She also does have a history of renal failure. She was found to have a significant sized left pleural effusion and underwent a thoracentesis yesterday. Approximately 900 mL of transudative fluid was evacuated. Post-procedure chest x-ray did show approximately 15% pneumothorax. Today's x-ray did show worsening of the pneumothorax. She is otherwise stable. Does not report any worsening shortness of breath. DESCRIPTION OF PROCEDURE: The left anterolateral chest was prepped and draped in standard surgical fashion. At approximately the sixth intercostal space, skin, subcutaneous tissue, muscle layers as well as the parietal pleura were anesthetized using 1% lidocaine with epinephrine. A transverse skin incision was made using 15 blade. The subcutaneous tissue and muscle layers were then dissected using a Dania clamp. A 24-Cuban trocar chest tube was then placed and advanced over the trocar without any resistance. The chest tube was then connected to Pleur-evac where no air leak was identified. The Pleur-evac was placed on suction. The chest tube was then sutured to the skin using 0 Prolene suture and Vaseline gauze was placed around the tube followed by 4 x 4 gauze and foam tape. The patient tolerated the procedure well. We will get a post-procedure chest x-ray as well as serial chest x-rays. Job ID: [id number] DocumentID: [id number] Dictated Date: 01/14/2021 23:12:24 Sales Account Leader Date: 01/14/2021 23:27:11 Dictated By: SKIP ORTEGA MD [facility]
[2021-01-15] VITALS (7 sets, daily range): BP systolic 110–135; BP diastolic 58–71
[2021-01-15] MEDS: MELATONIN 3 MG TABLET PO PRN (00:01)
[2021-01-15] MEDS: RT-ALBUTEROL SULF 2.5 MG/3 ML PRE-MIX VIAL INH SCH ×6 (02:55→21:30)
[2021-01-15 05:09] LABS: BASOPHILS % (AUTO) 0 % (0-10); EOSINOPHILS % (AUTO) 0 % (0-10); HEMATOCRIT 39 % (35-52); HEMOGLOBIN 11.8 g/dL (11.5-16.0); LYMPHOCYTES # (AUTO) 0.3 10^3/uL (1.0-4.0); LYMPHOCYTES % (AUTO) 3 % (12-44); MEAN CORPUSCULAR HEMOGLOBIN 29 pg (25-34); MEAN CORPUSCULAR HGB CONC 30 g/dL (32-36); MEAN CORPUSCULAR VOLUME 95 fL (80-99); MEAN PLATELET VOLUME 10.4 fL (9.0-12.2); MONOCYTES # (AUTO) 0.2 10^3/uL (0.0-1.0); MONOCYTES % (AUTO) 1 % (0-12); NEUTROPHILS # (AUTO) 12.4 10^3/uL (1.8-7.8); NEUTROPHILS % (AUTO) 95 % (42-75); PLATELET COUNT 160 10^3/uL (130-400)
[2021-01-15 05:23] LABS: ALBUMIN 3.4 GM/DL (3.2-4.5); POTASSIUM 4.6 MMOL/L (3.6-5.0)
[2021-01-15 05:24] LABS: CALCIUM 8.9 MG/DL (8.5-10.1)
[2021-01-15 05:25] LABS: TOTAL PROTEIN 5.6 GM/DL (6.4-8.2)
[2021-01-15 05:27] LABS: BILIRUBIN,TOTAL 0.2 MG/DL (0.1-1.0)
[2021-01-15 05:29] LABS: CREATININE SERUM 2.48 MG/DL (0.60-1.30)
[2021-01-15] MEDS: methylPREDNISolone 125 MG (Solu-MEDROL) VIAL IVP SCH ×4 (06:23→23:28)
[2021-01-15] MEDS: fentaNYL INJ 100 MCG/2 ML AMP IVP PRN ×4 (06:26→21:34)
[2021-01-15] MEDS: CATHETER FLUSH 10 ML SYR IV SCH ×3 (06:26→22:00)
[2021-01-15] MEDS: NS IV 1000 ML 1,000 ML IV SCH (06:27)
[2021-01-15] MEDS: CEFEPIME 1,000 MG/SWFI 10 ML IV PUSH IV SCH ×4 (06:27→17:31)
--- NOTE | 2021-01-15 06:41 | Progress Note - Hospitalist ---
Subjective HPI/CC On Admission Date Seen by Provider: Jan 15, 2021 Time Seen by Provider: 11:30 dyspnea and pleural effusion Subjective/Events-last exam Patient doing a lot better Chest tube was required for left-sided pleural effusion pneumothorax status post thoracentesis Moves around a little better No BM yet declines any meds Infiltrate on the right will maintain antibiotics Labs reviewed Holding Lasix Gentle IV fluids at 40 cc an hour Review of Systems General: Fatigue, Malaise Pulmonary: Dyspnea Focused Exam Lactate Level Time of Focused Exam: 08:15 Objective Exam Vital Signs Vital Signs Date Time Temp Pulse Resp B/P (MAP) Pulse Ox O2 Delivery O2 Flow Rate FiO2 01/16/21 04:13 36.4 95 20 141/64 (89) 97 OxyMask 5.00 01/12/21 23:14 40 Capillary Refill : Less Than 3 Seconds General Appearance: No Apparent Distress, WD/WN, Chronically ill Respiratory: No Accessory Muscle Use, No Respiratory Distress, Decreased Breath Sounds Cardiovascular: Regular Rate, Rhythm Neurologic/Psychiatric: Alert, Oriented x3, No Motor/Sensory Deficits, Normal Mood/Affect Results/Procedures Lab Laboratory Tests 01/16/21 04:30 Patient resulted labs reviewed. Assessment/Plan Assessment and Plan Assess & Plan/Chief Complaint Assessment: Left-sided pleural effusion status post thoracentesis with pneumothorax Chest tube in place Right-sided pneumonia maintain on antibiotics COPD oxygen dependent Acute kidney injury on chronic kidney disease holding Lasix and gentle IV fluids Hypertension Chronic debility Plan: Chest tube appreciated Check chest x-ray Gentle IV fluids Monitor creatinine Hold Lasix Antibiotics VICKY CHAVIRA DO Jan 15, 2021 06:41
--- NOTE | 2021-01-15 07:15 | Progress Note - Surgery ---
VALENTIN MIGUEL MED STUDENT 01/15/21 0715: Subjective Date Seen by a Provider: Jan 15, 2021 Time Seen by a Provider: 08:00 Subjective/Events-last exam Hospital course: 80 y/o F w/ PMH of CKD, edema, CAD, HTN, heart attack, irregular heartbeat, neuropathy, stroke, gout, anxiety, COPD on inhalers and home O2, and smoking to ED w/ cc of SOB and hypoxia needing increased oxygen requirements. CXR showed pleural effusion, significant on L, mild on R. CT showed mediastinal, hilar lymphadenopathy, and suspicion of infiltrate in L lung base. V/Q scan without mismatch but suggests "airspace process" in L lower lung. Venous doppler showed L popliteal cyst w/o evidence of DVT. Admitted for pleural effusion. Blood culture no growth. Thoracentesis performed showing transudative fluid. She had a pneumothorax yesterday and had a chest tube placed. CXR later today. Today: She states she fells better and only has pain where the tube is placed in her chest. She continues to complain of SOB, difficulty breathing, and a mild headache. She had a BM yesterday and denies difficulty with urination. She denies ambulating. She is using her IS and tolerating her diet. Review of Systems General: No Chills, No Night Sweats HEENT: Head Aches; No Visual Changes, No Eye Pain, No Ear Pain Pulmonary: Dyspnea; No Cough; Other (pain at site of tube placement) Cardiovascular: Chest Pain, Edema; No: Palpitations Gastrointestinal: No: Nausea, Vomiting, Abdominal Pain Genitourinary: No Dysuria, No Frequency Musculoskeletal: No: neck pain, back pain Neurological: No: Weakness, Numbness, Incoordination Focused Exam Lactate Level 01/12/21 18:05: Lactic Acid Level 0.71 Time of Focused Exam: 08:15 Objective Exam Vital Signs Date Time Temp Pulse Resp B/P (MAP) Pulse Ox O2 Delivery O2 Flow Rate FiO2 01/15/21 04:35 36.6 87 16 110/68 (82) 93 Nasal Cannula 5.00 01/15/21 02:56 93 Nasal Cannula 5.00 01/15/21 01:00 84 01/15/21 00:30 36.6 88 16 116/71 (86) 92 Nasal Cannula 5.00 01/14/21 22:15 98 Nasal Cannula 5.00 01/14/21 20:10 Nasal Cannula 5.00 01/14/21 19:19 36.4 88 20 117/62 (80) 94 Nasal Cannula 5.00 01/14/21 19:00 90 01/14/21 18:31 93 Nasal Cannula 5.00 01/14/21 16:41 36.5 87 20 138/65 (89) 96 Nasal Cannula 5.00 01/14/21 12:50 99 01/14/21 12:08 36.4 95 20 106/61 (76) 93 Nasal Cannula 5.00 01/14/21 10:30 96 Nasal Cannula 5.00 01/14/21 08:00 36.2 97 20 112/63 (79) 92 Nasal Cannula 5.00 01/14/21 08:00 Nasal Cannula 5.00 01/14/21 07:20 93 Nasal Cannula 5.00 I & O 01/15/21 07:00 Intake Total 1670 ml Output Total 700 ml Balance 970 ml Capillary Refill : Less Than 3 Seconds General Appearance: No Apparent Distress, WD/WN, Chronically ill, Obese HEENT: PERRL/EOMI Neck: Normal Inspection, Non Tender, Supple Respiratory: No Accessory Muscle Use, Decreased Breath Sounds (lower lungs posteriorly), Wheezing, Other (chest tube in L side) Cardiovascular: Regular Rate, Rhythm Gastrointestinal: normal bowel sounds, non tender, soft, hernia (baseball sized hernia midline upper abdomen) Extremity: Non Tender, No Calf Tenderness, Pedal Edema, Other (L upper extremity edema) Neurologic/Psychiatric: Alert, Oriented x3, No Motor/Sensory Deficits, Normal Mood/Affect Skin: Warm/Dry, Ecchymosis (bilateral dorsal hands d/t needle sticks) Lymphatic: No Adenopathy Results Lab Laboratory Tests 01/14/21 15:00: Body Fluid Source THORACENTESIS, Body Fluid Color YELLOW, Body Fluid Appearance SLT CLDY, Body Fluid pH 7, Body Fluid WBC 1395, Body Fluid RBC 2100, Body Fluid Polynuclear WBCs 61, Body Fluid Mononuclear WBCs 3, Body Fluid Lymphocytes 23, Body Fluid Eosinophils 1, Body Fluid Other Cells 12, Body Fluid Glucose 225, Body Fluid Total Protein 2.2 01/15/21 04:20: White Blood Count 13.0H, Red Blood Count 4.09, Hemoglobin 11.8, Hematocrit 39, Mean Corpuscular Volume 95, Mean Corpuscular Hemoglobin 29, Mean Corpuscular Hemoglobin Concent 30L, Red Cell Distribution Width 14.8H, Platelet Count 160, M amanda Platelet Volume 10.4, Immature Granulocyte % (Auto) 1, Neutrophils (%) (Auto) 95H, Lymphocytes (%) (Auto) 3L, Monocytes (%) (Auto) 1, Eosinophils (%) (Auto) 0, Basophils (%) (Auto) 0, Neutrophils # (Auto) 12.4H, Lymphocytes # (Auto) 0.3L, Monocytes # (Auto) 0.2, Eosinophils # (Auto) 0.0, Basophils # (Auto) 0.0, Immature Granulocyte # (Auto) 0.1, Sodium Level 136, Potassium Level 4.6, Chloride Level 103, Carbon Dioxide Level 22, Anion Gap 11, Blood Urea Nitrogen 44H, Creatinine 2.48H, Estimat Glomerular Filtration Rate 19, BUN/Creatinine Ratio 18, Glucose Level 167H, Calcium Level 8.9, Corrected Calcium 9.4, Total Bilirubin 0.2, Aspartate Amino Transf (AST/SGOT) 12, Alanine Aminotransferase (ALT/SGPT) 16, Alkaline Phosphatase 104, Total Protein 5.6L, Albumin 3.4 Microbiology 01/12/21 Blood Culture - Preliminary, Resulted No growth Assessment/Plan Assessment/Plan Assessment/Plan sx left pl eff s/p thoracentesis with left ptx. * thoracentesis showed transudative fluid * chest tube draining 250mL total * 2 view CXR planned for later today * continue IS, diet, ambulation MARY * BUN 44, Cr 2.48 * on NS RIKY SALAZAR DO 01/15/21 1252: Subjective Time Seen by a Provider: 09:26 Subjective/Events-last exam Pt seen and examined, states she is breathing better and has some pain at chest tube site. She states she is using IS but not walking around. Review of Systems General: No Chills, No Night Sweats Pulmonary: Dyspnea; No Cough; Other (pain at site of tube placement) Cardiovascular: Chest Pain, Edema; No: Palpitations Gastrointestinal: No: Nausea, Vomiting, Abdominal Pain Objective Exam General Appearance: No Apparent Distress, Chronically ill, Obese Respiratory: No Accessory Muscle Use, No Respiratory Distress, Decreased Breath Sounds (lower lungs posteriorly), Wheezing, Other (chest tube in L side, no air leak with at least 200ml of serous fluid in pleuravac) Cardiovascular: Regular Rate, Rhythm, No Murmur Gastrointestinal: non tender, soft, no organomegaly, hernia (incarcerated incisional hernia, appx baseball size) Neurologic/Psychiatric: Alert, Oriented x3 Assessment/Plan Assessment/Plan Assessment/Plan Pneumothorax - Iatrogenic Pleural effusion MARY Incarcerated Incisional/Ventral Hernia Plan is to monitor CT; there is no leak at this time but still has small PTX seen on CXR today. May take CT off suction and leave to water seal with repeat CXR in the am. Pleural effusion is not bad and is draining into the pleuravac. IV fluids and max medical management. Pt not having problems with hernia at this time and would wait to fix it (if at all) as an outpt. Supervisory-Addendum Brief Verification & Attestation Participated in pt care: history, MDM, physical Personally performed: exam, history, MDM, supervision of care Care discussed with: Medical Student Procedures: n/a Verification and Attestation of Medical Student E/M Service A medical student performed and documented this service. I then reviewed and verified all information documented by the medical student and made modifications to such information, when appropriate. I personally performed a physical exam, medical decision making and then discussed any differences between the notes and made revisions as necessary to create one note. Riky Salazar , 01/15/21 , 12:52 VALENTIN MIGUEL MED STUDENT Jan 15, 2021 07:15 RIKY SALAZAR DO Jan 15, 2021 12:52
--- NOTE | 2021-01-15 09:33 | Diagnostic Imaging Report ---
INDICATION: Pneumothorax. COMPARISON: 01/14/2021 FINDINGS: There has been interval placement of a left thoracostomy tube. There is a tiny residual left apical pneumothorax. There is patchy right basilar infiltrate. Heart size is normal. The mediastinum is unremarkable. IMPRESSION: Interval placement of a left thoracostomy tube with tiny residual left apical pneumothorax. Patchy right basilar infiltrate. Dictated by: Dictated on workstation # [id number]
--- NOTE | 2021-01-15 11:28 | Cardiology Progress Note ---
Subjective Date Seen by Provider: Jan 15, 2021 Time Seen by Provider: 11:25 Subjective/Events-last exam Patient was seen at bedside, laying down comfortably, feeling better. No new complaint. Review of Systems General: No Chills, No Night Sweats, No Fatigue, No Malaise, No Appetite, No Ot her HEENT: No Head Aches, No Visual Changes, No Eye Pain, No Ear Pain, No Dysp hasia, No Sinus Congestion, No Post Nasal Drip, No Sore Throat, No Other Pulmonary: No Dyspnea, No Cough, No Pleuritic Chest Pain, No Other Cardiovascular: No: Chest Pain, Palpitations, Orthopnea, Paroxysmal Noc. Dyspnea, Edema, Lt Headedness, Other Focused Exam Lactate Level 01/12/21 18:05: Lactic Acid Level 0.71 Time of Focused Exam: 08:15 Objective-Cardiology Exam Last Set of Vital Signs Vital Signs 01/12/21 01/15/21 01/15/21 23:14 08:00 10:48 Temp 36.4 Pulse 87 Resp 20 B/P (MAP) 117/68 (84) Pulse Ox 91 O2 Delivery Nasal Cannula O2 Flow Rate 5.00 FiO2 40 I&O Intake and Output 01/14/21 23:59 Intake Total 1630 ml Output Total 650 ml Balance 980 ml Intake Oral 1620 ml IV Total 10 ml Output Urine Total 650 ml # Voids 1 General: Alert, Oriented X3, Cooperative HEENT: Atraumatic, PERRLA Neck: Supple, No JVD, No Thyromegaly Lungs: Clear to Auscultation, Normal Air Movement Heart: Regular Rate, Normal S1, Normal S2, No Murmurs Abdomen: Normal Bowel Sounds, Soft, No Tenderness, No Hepatosplenomegaly, No Masses Extremities: No Clubbing, No Cyanosis, No Edema, Normal Pulses, No Tenderness/Swelling Skin: No Rashes, No Breakdown, No Significant Lesion Neuro: Normal Gait, Normal Speech, Strength at 5/5 X4 Ext, Normal Tone, Sensation Intact Psych/Mental Status: Mental Status NL, Mood NL Results Lab Laboratory Tests 01/15/21 04:20 A/P-Cardiology Admission Diagnosis Pneumothorax COPD Hypertension Hyperlipidemia Assessment/Plan Left-sided pleural effusion status post thoracentesis, pneumothorax, chest tube in place, chest x-ray showing improvement. Managed by primary care team COPD, chronic tobaccoism, dyspnea. Feeling better at this time. Managed by primary care team Pulmonary hypertension probably due to obesity hypoventilation syndrome and obstructive sleep apnea. Continue to monitor Echocardiogram done on September 25, 2019 showing normal LV size, EF 60 to 65%, grade 2 diastolic dysfunction, moderate MR, PA pressure 60 mmHg. Continue to monitor Chronic kidney disease, followed by medic technician. Continue to monitor Hypertension, monitor blood pressure Hyperlipidemia, monitor lipids History of carotid stenosis, right carotid endarterectomy done in [place], last ultrasound done in August 2019 showing mild bilateral disease. Questionable history of congestive heart failure with preserved systolic function, currently stable. Continue to monitor Obesity, BMI 37. GEORGE RHODES MD Jan 15, 2021 11:28
[2021-01-15] MEDS: HYDROcodone/APAP 5 MG/325 MG (LORTAB) TAB PO PRN ×2 (11:33→17:39)
[2021-01-15] MEDS: ALPRAZolam 0.25 MG (XANAX) TAB PO PRN (17:39)
[2021-01-16] VITALS (7 sets, daily range): BP systolic 99–147; BP diastolic 54–75
[2021-01-16] MEDS: RT-ALBUTEROL SULF 2.5 MG/3 ML PRE-MIX VIAL INH SCH ×6 (02:05→21:58)
[2021-01-16 05:18] LABS: BASOPHILS % (AUTO) 0 % (0-10); EOSINOPHILS % (AUTO) 0 % (0-10); HEMATOCRIT 38 % (35-52); HEMOGLOBIN 11.7 g/dL (11.5-16.0); LYMPHOCYTES # (AUTO) 0.4 10^3/uL (1.0-4.0); LYMPHOCYTES % (AUTO) 4 % (12-44); MEAN CORPUSCULAR HEMOGLOBIN 29 pg (25-34); MEAN CORPUSCULAR HGB CONC 31 g/dL (32-36); MEAN CORPUSCULAR VOLUME 94 fL (80-99); MEAN PLATELET VOLUME 10.8 fL (9.0-12.2); MONOCYTES # (AUTO) 0.1 10^3/uL (0.0-1.0); MONOCYTES % (AUTO) 1 % (0-12); NEUTROPHILS % (AUTO) 94 % (42-75); PLATELET COUNT 142 10^3/uL (130-400); WHITE BLOOD COUNT 9.7 10^3/uL (4.3-11.0)
[2021-01-16] MEDS: CATHETER FLUSH 10 ML SYR IV SCH ×3 (05:22→20:24)
[2021-01-16] MEDS: NS IV 1000 ML 1,000 ML IV SCH (05:22)
[2021-01-16] MEDS: methylPREDNISolone 125 MG (Solu-MEDROL) VIAL IVP SCH ×3 (05:23→20:23)
[2021-01-16] MEDS: CEFEPIME 1,000 MG/SWFI 10 ML IV PUSH IV SCH ×4 (05:23→17:12)
[2021-01-16 05:48] LABS: ALBUMIN 3.2 GM/DL (3.2-4.5); POTASSIUM 4.4 MMOL/L (3.6-5.0)
[2021-01-16 05:50] LABS: CALCIUM 8.4 MG/DL (8.5-10.1)
[2021-01-16 05:51] LABS: TOTAL PROTEIN 5.4 GM/DL (6.4-8.2)
[2021-01-16 05:53] LABS: BILIRUBIN,TOTAL 0.3 MG/DL (0.1-1.0)
[2021-01-16 05:54] LABS: CREATININE SERUM 2.26 MG/DL (0.60-1.30)
--- NOTE | 2021-01-16 08:28 | Progress Note - Surgery ---
VALENTIN MIGUEL MED STUDENT 01/16/21 0828: Subjective Date Seen by a Provider: Jan 16, 2021 Time Seen by a Provider: 08:55 Subjective/Events-last exam Hospital course: 80 y/o F w/ PMH of CKD, edema, CAD, HTN, heart attack, irregular heartbeat, neuropathy, stroke, gout, anxiety, COPD on inhalers and home O2, and smoking to ED w/ cc of SOB and hypoxia needing increased oxygen requirements. CXR showed pleural effusion, significant on L, mild on R. CT showed mediastinal, hilar lymphadenopathy, and suspicion of infiltrate in L lung base. V/Q scan without mismatch but suggests "airspace process" in L lower lung. Venous doppler showed L popliteal cyst w/o evidence of DVT. Admitted for pleural effusion. Blood culture no growth. Thoracentesis performed showing transudative fluid. She had a pneumothorax and had a chest tube placed. CXR showed mild pneumothorax. Today: Patient is resting comfortably in bed. She complains of SOB at times and denies chest pain except at tube site in chest. She is tolerating her diet, had a BM, using her IS, and denies ambulation. CT was not clamped yesterday and continues to have drainage. Total output around 500. Review of Systems General: No Chills, No Fatigue, No Malaise Pulmonary: Dyspnea, Cough Cardiovascular: Chest Pain (pain at tube insertion) Gastrointestinal: No: Nausea, Vomiting, Abdominal Pain Neurological: Numbness; No: Weakness Focused Exam Time of Focused Exam: 08:15 Objective Exam Vital Signs Date Time Temp Pulse Resp B/P (MAP) Pulse Ox O2 Delivery O2 Flow Rate FiO2 01/16/21 07:39 97 Nasal Cannula 5.00 01/16/21 07:00 90 01/16/21 04:13 36.4 95 20 141/64 (89) 97 OxyMask 5.00 01/16/21 02:05 94 OxyMask 5.00 01/16/21 01:00 100 01/15/21 23:48 36.2 95 20 112/64 (80) 94 OxyMask 5.00 01/15/21 21:31 96 Nasal Cannula 4.00 01/15/21 20:00 Nasal Cannula 5.00 01/15/21 19:43 36.2 101 20 135/64 (87) 92 Nasal Cannula 5.00 01/15/21 19:00 101 01/15/21 18:33 93 Nasal Cannula 5.00 01/15/21 16:00 36.3 92 20 125/58 (80) 94 Nasal Cannula 5.00 01/15/21 14:59 95 Nasal Cannula 5.00 01/15/21 12:55 95 01/15/21 12:11 36.8 87 20 114/68 (83) 91 Nasal Cannula 5.00 01/15/21 10:48 91 Nasal Cannula 5.00 I & O 01/16/21 07:00 Intake Total 1970 ml Output Total 625 ml Balance 1345 ml Capillary Refill : Less Than 3 Seconds General Appearance: No Apparent Distress, WD/WN, Chronically ill HEENT: PERRL/EOMI Neck: Normal Inspection, Non Tender, Supple Respiratory: No Accessory Muscle Use, No Respiratory Distress, Decreased Breath Sounds, Wheezing Cardiovascular: Regular Rate, Rhythm Gastrointestinal: soft, no organomegaly, distended, tenderness (mild), hernia (incarcerated incisional hernia, appx baseball size) Extremity: Non Tender, No Calf Tenderness, Pedal Edema, Other (L upper extre mity edema) Neurologic/Psychiatric: Alert, Oriented x3, No Motor/Sensory Deficits, Normal Mood/Affect Skin: Warm/Dry, Ecchymosis (bilateral dorsal hands d/t needle sticks) Lymphatic: No Adenopathy Results Lab Laboratory Tests 01/16/21 04:30: White Blood Count 9.7, Red Blood Count 4.01, Hemoglobin 11.7, Hematocrit 38, Mean Corpuscular Volume 94, Mean Corpuscular Hemoglobin 29, Mean Corpuscular Hemoglobin Concent 31L, Red Cell Distribution Width 14.6H, Platelet Count 142, Mean Platelet Volume 10.8, Immature Granulocyte % (Auto) 1, Neutrophils (%) (Auto) 94H, Lymphocytes (%) (Auto) 4L, Monocytes (%) (Auto) 1, Eosinophils (%) (Auto) 0, Basophils (%) (Auto) 0, Neutrophils # (Auto) 9.0H, Lymphocytes # (Auto) 0.4L, Monocytes # (Auto) 0.1, Eosinophils # (Auto) 0.0, Basophils # (Auto) 0.0, Immature Granulocyte # (Auto) 0.1, Sodium Level 136, Potassium Level 4.4, Chloride Level 104, Carbon Dioxide Level 22, Anion Gap 10, Blood Urea Nitrogen 47H, Creatinine 2.26H, Estimat Glomerular Filtration Rate 21, BUN/Cr eatinine Ratio 21, Glucose Level 169H, Calcium Level 8.4L, Corrected Calcium 9.0, Total Bilirubin 0.3, Aspartate Amino Transf (AST/SGOT) 11, Alanine Aminotransferase (ALT/SGPT) 16, Alkaline Phosphatase 90, Total Protein 5.4L, Albumin 3.2 Microbiology 01/14/21 Gram Stain - Final, Resulted 01/14/21 Body Fluid Culture - Preliminary, Resulted No growth 01/12/21 Blood Culture - Preliminary, Resulted No growth Assessment/Plan Assessment/Plan Assessment/Plan Pneumothorax - Iatrogenic Pleural effusion MARY Incarcerated Incisional/Ventral Hernia Plan is to monitor CT; suction turned off yesterday. no airleaks visualized. not clamped. continues to drain fluid into pleuravac, at 500 total. order repeat CXR for this am. IV fluids and max medical management. Pt is not having problems with hernia at this time and would wait to fix it (if at all) as an outpt. update: nurse ordered stat x-ray at 11:30AM. awaiting results. update: CXA today report shows slightly larger pneumothorax though similar. L lung base better aerated. worse infiltrate/atelectesis on R lower lobe. cardiomegaly. continue pleuravac RIKY SALAZAR DO 01/16/21 1353: Subjective Time Seen by a Provider: 11:26 Subjective/Events-last exam Pt seen and examined, still having mild SOB. She is tolerating diet with minimal pain at CT site. Review of Systems General: No Chills; Fatigue Pulmonary: Dyspnea, Cough Cardiovascular: Chest Pain (pain at tube insertion) Gastrointestinal: No: Nausea, Vomiting, Abdominal Pain Objective Exam General Appearance: No Apparent Distress, Chronically ill, Obese Respiratory: No Accessory Muscle Use, No Respiratory Distress, Decreased Breath Sounds (bases bilaterally), Wheezing Cardiovascular: Regular Rate, Rhythm, No Murmur Gastrointestinal: soft, no organomegaly, distended, tenderness (mild), hernia (incarcerated incisional hernia, appx baseball size) Assessment/Plan Assessment/Plan Assessment/Plan Pneumothorax - Iatrogenic Pleural effusion MARY Incarcerated Incisional/Ventral Hernia Plan is to monitor CT; suction turned off yesterday. no airleaks visualized. not clamped. continues to drain fluid into pleuravac, at 500 total. Repeat CXR still shows PTX and may be slightly larger. Will leave CT to water seal and repeat CXR tomorrow am. IV fluids and max medical management. Pt is not having problems with hernia at this time and would wait to fix it (if at all) as an outpt. Supervisory-Addendum Brief Verification & Attestation Participated in pt care: history, MDM, physical Personally performed: exam, history, MDM, supervision of care Care discussed with: Medical Student Procedures: n/a Verification and Attestation of Medical Student E/M Service A medical student performed and documented this service. I then reviewed and verified all information documented by the medical student and made dwaine fications to such information, when appropriate. I personally performed a physical exam, medical decision making and then discussed any differences between the notes and made revisions as necessary to create one note. Riky Salazar , 01/16/21 , 13:53 VALENTIN MIGUEL MED STUDENT Jan 16, 2021 08:28 RIKY SALAZAR DO Jan 16, 2021 13:53
--- NOTE | 2021-01-16 11:02 | Cardiology Progress Note ---
Subjective Date Seen by Provider: Jan 16, 2021 Time Seen by Provider: 11:02 Subjective/Events-last exam Patient was seen at bedside, laying down comfortably, feeling better. Review of Systems General: No Chills, No Night Sweats; Fatigue; No Malaise, No Appetite, No Other HEENT: No Head Aches, No Visual Changes, No Eye Pain, No Ear Pain, No Dysphasia, No Sinus Congestion, No Post Nasal Drip, No Sore Throat, No Other Pulmonary: No Dyspnea, No Cough, No Pleuritic Chest Pain, No Other Cardiovascular: No: Chest Pain, Palpitations, Orthopnea, Paroxysmal Noc. Dyspnea, Edema, Lt Headedness, Other Focused Exam Time of Focused Exam: 08:15 Objective-Cardiology Exam Last Set of Vital Signs Vital Signs 01/12/21 23:14 FiO2 40 I&O Intake and Output 01/16/21 00:00 Intake Total 1010 ml Output Total 300 ml Balance 710 ml Intake Oral 1010 ml Output Urine Total 300 ml # Voids 4 General: Alert, Oriented X3, Cooperative HEENT: Atraumatic, PERRLA Neck: Supple, No JVD, No Thyromegaly Lungs: Clear to Auscultation, Normal Air Movement Heart: Regular Rate, Normal S1, Normal S2, No Murmurs Abdomen: Normal Bowel Sounds, Soft, No Tenderness, No Hepatosplenomegaly, No Masses Extremities: No Clubbing, No Cyanosis, No Edema, Normal Pulses, No Tenderness/Swelling Skin: No Rashes, No Breakdown, No Significant Lesion Neuro: Normal Gait, Normal Speech, Strength at 5/5 X4 Ext, Normal Tone, Sensation Intact Psych/Mental Status: Mental Status NL, Mood NL Results Lab Laboratory Tests 01/16/21 04:30 A/P-Cardiology Admission Diagnosis Pneumothorax COPD Hypertension Hyperlipidemia Assessment/Plan Left-sided pleural effusion status post thoracentesis, pneumothorax, chest tube in place, chest x-ray showing improvement. Managed by primary care team COPD, chronic tobaccoism, dyspnea. Feeling better at this time. Managed by primary care team Pulmonary hypertension probably due to obesity hypoventilation syndrome and obstructive sleep apnea. Continue to monitor Echocardiogram done on September 25, 2019 showing normal LV size, EF 60 to 65%, grade 2 diastolic dysfunction, moderate MR, PA pressure 60 mmHg. Continue to monitor Chronic kidney disease, followed by operations lead. Continue to monitor Hypertension, monitor blood pressure Hyperlipidemia, monitor lipids History of carotid stenosis, right carotid endarterectomy done in [place], last ultrasound done in August 2019 showing mild bilateral disease. Questionable history of congestive heart failure with preserved systolic function, currently stable. Continue to monitor Obesity, BMI 37. GEORGE RHODES MD Jan 16, 2021 11:02
--- NOTE | 2021-01-16 11:18 | Progress Note - Hospitalist ---
Subjective HPI/CC On Admission Date Seen by Provider: Jan 16, 2021 Time Seen by Provider: 11:15 dyspnea and pleural effusion Subjective/Events-last exam Patient doing very well Son at the bedside Chest tube maintained No major shortness of breath or pain Reviewed labs Appreciate cardiology Restarting Lovenox for DVT prophylaxis due to chest tube tolerated and no bleeding Decrease in steroids Review of Systems General: Fatigue, Malaise Pulmonary: Dyspnea Focused Exam Time of Focused Exam: 08:15 Objective Exam Vital Signs Vital Signs Date Time Temp Pulse Resp B/P (MAP) Pulse Ox O2 Delivery O2 Flow Rate FiO2 01/16/21 15:41 93 Nasal Cannula 5.00 01/16/21 13:00 87 01/16/21 12:00 36.3 20 147/75 (99) 01/12/21 23:14 40 Capillary Refill : Less Than 3 Seconds General Appearance: No Apparent Distress, WD/WN, Chronically ill, Obese Respiratory: No Accessory Muscle Use, No Respiratory Distress, Decreased Breath Sounds Cardiovascular: Regular Rate, Rhythm Neurologic/Psychiatric: Alert, Oriented x3 Results/Procedures Lab Laboratory Tests 01/16/21 04:30 Patient resulted labs reviewed. Assessment/Plan Assessment and Plan Assess & Plan/Chief Complaint Assessment: Left-sided pleural effusion status post thoracentesis with pneumothorax Chest tube in place Right-sided pneumonia maintain on antibiotics COPD oxygen dependent Acute kidney injury on chronic kidney disease holding Lasix and gentle IV fluids Hypertension Chronic debility Plan: Chest tube appreciated Check chest x-ray Gentle IV fluids Monitor creatinine Hold Lasix Antibiotics 01/16/2021: Supportive care DVT prophylaxis Lovenox Decrease steroids to every 12 hours VICKY CHAVIRA DO Jan 16, 2021 11:18
[2021-01-16] MEDS: HYDROcodone/APAP 5 MG/325 MG (LORTAB) TAB PO PRN ×2 (11:51→18:07)
--- NOTE | 2021-01-16 12:44 | Diagnostic Imaging Report ---
EXAM: Portable erect AP chest at 12:14 PM INDICATION: Chest pain FINDINGS: The cardiomegaly noted on the prior exam of 01/15/2020 is again evident and not significantly changed. The small apical pneumothorax on the left is also again visualized. The pneumothorax may be minimally larger than on the prior exam but has not changed significantly. The left lung base does seem somewhat better aerated than on the prior exam. There is only a small amount of residual atelectasis/infiltrate still present. However the density in the right lower lobe may be slightly greater. The upper lungs are clear. The mediastinum is not widened. The osseous structures are intact. IMPRESSION: 1. The cardiomegaly and the small apical pneumothorax on the left seen previously are again evident. The pneumothorax may be minimally larger but has not changed significantly. 2. The left lung base is better aerated than on the prior exam. Conversely there is somewhat greater involvement of the right lower lobe by atelectasis/infiltrate. Dictated by: Dictated on workstation # [id number]
[2021-01-16] MEDS ORDERED: ENOXAPARIN 40 MG/0.4 ML (LOVENOX) SYR SC SCH (16:15)
[2021-01-16] MEDS: ENOXAPARIN 30 MG/0.3 ML (LOVENOX) SYR SC SCH (17:12)
[2021-01-16] MEDS: MELATONIN 3 MG TABLET PO PRN (23:00)
[2021-01-16] MEDS: fentaNYL INJ 100 MCG/2 ML AMP IVP PRN (23:01)
[2021-01-17] VITALS (7 sets, daily range): BP systolic 109–147; BP diastolic 54–78
[2021-01-17] MEDS: RT-ALBUTEROL SULF 2.5 MG/3 ML PRE-MIX VIAL INH SCH ×6 (02:49→21:03)
[2021-01-17] MEDS: NS IV 1000 ML 1,000 ML IV SCH (03:36)
[2021-01-17 04:53] LABS: BASOPHILS % (AUTO) 0 % (0-10); EOSINOPHILS % (AUTO) 0 % (0-10); HEMATOCRIT 38 % (35-52); HEMOGLOBIN 11.5 g/dL (11.5-16.0); LYMPHOCYTES # (AUTO) 0.4 10^3/uL (1.0-4.0); LYMPHOCYTES % (AUTO) 4 % (12-44); MEAN CORPUSCULAR HEMOGLOBIN 29 pg (25-34); MEAN CORPUSCULAR HGB CONC 31 g/dL (32-36); MEAN CORPUSCULAR VOLUME 95 fL (80-99); MEAN PLATELET VOLUME 10.4 fL (9.0-12.2); MONOCYTES # (AUTO) 0.1 10^3/uL (0.0-1.0); MONOCYTES % (AUTO) 2 % (0-12); NEUTROPHILS # (AUTO) 7.7 10^3/uL (1.8-7.8); NEUTROPHILS % (AUTO) 93 % (42-75); PLATELET COUNT 135 10^3/uL (130-400); WHITE BLOOD COUNT 8.3 10^3/uL (4.3-11.0)
[2021-01-17 05:05] LABS: POTASSIUM 4.6 MMOL/L (3.6-5.0)
[2021-01-17 05:06] LABS: CALCIUM 8.1 MG/DL (8.5-10.1)
[2021-01-17 05:07] LABS: TOTAL PROTEIN 5.1 GM/DL (6.4-8.2)
[2021-01-17 05:09] LABS: BILIRUBIN,TOTAL 0.3 MG/DL (0.1-1.0)
[2021-01-17 05:11] LABS: CREATININE SERUM 2.14 MG/DL (0.60-1.30)
[2021-01-17] MEDS: HYDROcodone/APAP 5 MG/325 MG (LORTAB) TAB PO PRN ×3 (06:09→22:12)
[2021-01-17] MEDS: CATHETER FLUSH 10 ML SYR IV SCH ×3 (06:10→22:12)
--- NOTE | 2021-01-17 07:29 | Progress Note - Surgery ---
VALENTIN MIGUEL MED STUDENT 01/17/21 0729: Subjective Date Seen by a Provider: Jan 17, 2021 Time Seen by a Provider: 07:25 Subjective/Events-last exam Hospital course: 80 y/o F w/ PMH of CKD, edema, CAD, HTN, heart attack, irregular heartbeat, neuropathy, stroke, gout, anxiety, COPD on inhalers and home O2, and smoking to ED w/ cc of SOB and hypoxia needing increased oxygen requirements. CXR showed pleural effusion, significant on L, mild on R. CT showed mediastinal, hilar lymphadenopathy, and suspicion of infiltrate in L lung base. V/Q scan without mismatch but suggests "airspace process" in L lower lung. Venous doppler showed L popliteal cyst w/o evidence of DVT. Admitted for pleural effusion. Blood culture no growth. Thoracentesis performed showing transudative fluid. She had a pneumothorax and had a chest tube placed. CXR showed mild pneumothorax. repeat CXR showed slightly worsening pneumothorax with lower R infiltrate. Today: She complains of pain in her left side where the CT is placed. She is tolerating her diet and using her IS. She has no difficulties with urination. She denies ambulation or BM. Total drainage is 700. Review of Systems General: No Chills, No Fatigue HEENT: No Head Aches, No Visual Changes Pulmonary: No Dyspnea; Cough Cardiovascular: Chest Pain (at chest tube insertion site) Gastrointestinal: No: Nausea, Vomiting, Abdominal Pain Genitourinary: No Dysuria, No Frequency Musculoskeletal: No: arm pain, back pain, leg pain Neurological: No: Weakness, Numbness Focused Exam Time of Focused Exam: 08:15 Objective Exam Vital Signs Date Time Temp Pulse Resp B/P (MAP) Pulse Ox O2 Delivery O2 Flow Rate FiO2 01/17/21 06:59 96 Nasal Cannula 5.00 01/17/21 03:49 36.0 100 22 111/54 (73) 91 Nasal Cannula 5.00 01/17/21 02:49 97 Nasal Cannula 5.00 01/17/21 01:00 91 01/16/21 23:30 36.1 95 18 99/54 (69) 90 Nasal Cannula 5.00 01/16/21 21:58 93 Nasal Cannula 5.00 01/16/21 21:48 36.3 86 20 107/58 (74) 91 Nasal Cannula 5.00 01/16/21 20:02 Nasal Cannula 5.00 01/16/21 20:00 36.3 86 20 107/58 (74) 91 Nasal Cannula 5.00 01/16/21 19:25 93 Nasal Cannula 5.00 01/16/21 19:00 84 01/16/21 16:00 36.3 84 20 123/60 (81) 93 Nasal Cannula 5.00 01/16/21 15:41 93 Nasal Cannula 5.00 01/16/21 13:00 87 01/16/21 12:00 36.3 98 20 147/75 (99) 98 Nasal Cannula 5.00 01/16/21 11:21 93 Nasal Cannula 5.00 01/16/21 08:00 36.2 89 24 131/74 (93) 96 OxyMask 5.00 01/16/21 08:00 Nasal Cannula 5.00 01/16/21 07:39 97 Nasal Cannula 5.00 I & O 01/17/21 07:00 Intake Total 2180 ml Output Total 1520 ml Balance 660 ml Capillary Refill : Less Than 3 Seconds General Appearance: No Apparent Distress, WD/WN, Chronically ill, Obese HEENT: PERRL/EOMI Neck: Normal Inspection, Non Tender, Supple Respiratory: No Accessory Muscle Use, No Respiratory Distress, Decreased Breath Sounds, Wheezing Cardiovascular: Regular Rate, Rhythm Gastrointestinal: non tender, soft, no organomegaly, distended, hernia (incarcerated incisional hernia, appx baseball size) Extremity: Non Tender, No Calf Tenderness, Pedal Edema, Other (L upper extremity edema) Neurologic/Psychiatric: Alert, Oriented x3 Skin: Warm/Dry, Ecchymosis (bilateral dorsal hands d/t needle sticks) Lymphatic: No Adenopathy Results Lab Laboratory Tests 01/17/21 04:20: White Blood Count 8.3, Red Blood Count 3.97, Hemoglobin 11.5, Hematocrit 38, Mean Corpuscular Volume 95, Mean Corpuscular Hemoglobin 29, Mean Corpuscular Hemoglobin Concent 31L, Red Cell Distribution Width 14.6H, Platelet Count 135, Mean Platelet Volume 10.4, Immature Granulocyte % (Auto) 1, Neutrophils (%) (Auto) 93H, Lymphocytes (%) (Auto) 4L, Monocytes (%) (Auto) 2, Eosinophils (%) (Auto) 0, Basophils (%) (Auto) 0, Neutrophils # (Auto) 7.7, Lymphocytes # (Auto) 0.4L, Monocytes # (Auto) 0.1, Eosinophils # (Auto) 0.0, Basophils # (Auto) 0.0, Immature Granulocyte # (Auto) 0.1, Sodium Level 134L, Potassium Level 4.6, Chloride Level 106, Carbon Dioxide Level 20L, Anion Gap 8, Blood Urea Nitrogen 47H, Creatinine 2.14H, Estimat Glomerular Filtration Rate 22, BUN/Creatinine Ratio 22, Glucose Level 186H, Calcium Level 8.1L, Corrected Calcium 8.9, Total Bilirubin 0.3, Aspartate Amino Transf (AST/SGOT) 11, Alanine Aminotransferase (ALT/SGPT) 18, Alkaline Phosphatase 78, Total Protein 5.1L, Albumin 3.0L Microbiology 01/14/21 Gram Stain - Final, Resulted 01/14/21 Body Fluid Culture - Preliminary, Resulted No growth 01/12/21 Blood Culture - Preliminary, Resulted No growth Assessment/Plan Assessment/Plan Assessment/Plan Pneumothorax - Iatrogenic Pleural effusion AMRY Incarcerated Incisional/Ventral Hernia Plan is to monitor CT which drained 70 overnight. continues to drain fluid into pleuravac, total at 700. no airleaks visualized. Repeat CXR today showed stable tiny left apical pneumothorax and right basilar infiltrate and small right effusion. Will leave CT to water seal and repeat CXR tomorrow am. IV fluids and max medical management. Pt is not having problems with hernia at this time and would wait to fix it (if at all) as an outpt. HUAN SALAZAR DO 01/17/21 1449: Subjective Time Seen by a Provider: 13:49 Subjective/Events-last exam Pt seen and examined, no new complaints. She is having some mild SOB. Review of Systems General: No Chills; Fatigue Pulmonary: Dyspnea, Cough Cardiovascular: Chest Pain (at chest tube insertion site) Gastrointestinal: No: Nausea, Vomiting, Abdominal Pain Objective Exam General Appearance: No Apparent Distress, Chronically ill, Obese Respiratory: No Accessory Muscle Use, No Respiratory Distress, Decreased Breath Sounds (bases; right worse than left), Wheezing Cardiovascular: Regular Rate, Rhythm, No Murmur Gastrointestinal: non tender, soft, no organomegaly, hernia (incarcerated incisional hernia, appx baseball size) Assessment/Plan Assessment/Plan Assessment/Plan Pneumothorax - Iatrogenic Pleural effusion MARY Incarcerated Incisional/Ventral Hernia Plan is to monitor CT which drained 70 overnight. continues to drain fluid into pleuravac, total at 700. no airleaks visualized. Repeat CXR today showed stable tiny left apical pneumothorax and right basilar infiltrate and small right effusion. Will clamp CT and repeat CXR tomorrow am. IV fluids and max medical management. Pt is not having problems with hernia at this time and would wait to fix it (if at all) as an outpt. Supervisory-Addendum Brief Verification & Attestation Participated in pt care: history, MDM, physical Personally performed: exam, history, MDM, supervision of care Care discussed with: Medical Student Procedures: n/a Verification and Attestation of Medical Student E/M Service A medical student performed and documented this service. I then reviewed and verified all information documented by the medical student and made modifications to such information, when appropriate. I personally performed a physical exam, medical decision making and then discussed any differences between the notes and made revisions as necessary to create one note. Huan Salazar , 01/17/21 , 14:49 VALENTIN MIGUEL MED STUDENT Jan 17, 2021 07:29 HUAN SALAZAR DO Jan 17, 2021 14:49
--- NOTE | 2021-01-17 08:26 | Diagnostic Imaging Report ---
INDICATION: Pneumothorax. TIME OF EXAM: 8:02 AM Correlation is made with prior chest one day earlier. A left apical pneumothorax seen previously is again noted and remains very small. The left lung is previously well aerated. There is some infiltrate in the right base. Heart size is stable. There appears to be some trace pleural fluid on the right. IMPRESSION: 1. Stable tiny left apical pneumothorax. 2. Right basilar infiltrate and small right effusion. Dictated by: Dictated on workstation # [id number]
[2021-01-17] MEDS: methylPREDNISolone 125 MG (Solu-MEDROL) VIAL IVP SCH ×2 (08:50→22:12)
--- NOTE | 2021-01-17 14:46 | Progress Note ---
Subjective Subjective/Events-last exam Patient states that she is feeling better this AM. She has not been up out of bed other then to use the commode. Tolerating PO diet. Review of Systems General: No Chills; Fatigue Pulmonary: Dyspnea; No Cough Cardiovascular: Orthopnea, Edema; No: Chest Pain Gastrointestinal: No: Nausea, Vomiting Neurological: Weakness, Incoordination Focused Exam Time of Focused Exam: 08:15 Objective Exam Last Set of Vital Signs Vital Signs Date Time Temp Pulse Resp B/P (MAP) Pulse Ox O2 Delivery O2 Flow Rate FiO2 01/17/21 13:35 36.6 91 19 129/60 (83) 91 Nasal Cannula 5.00 01/12/21 23:14 40 Capillary Refill : Less Than 3 Seconds I&O Intake and Output 01/17/21 00:00 Intake Total 2150 ml Output Total 1775 ml Balance 375 ml Intake Oral 1140 ml IV Total 1010 ml Output Urine Total 1525 ml Chest Tube Drainage Total 250 ml # Voids 1 General: Alert, Oriented X3, Cooperative, No Acute Distress HEENT: Mucous Memb Moist/[place] Lungs: Other (Diminished breath sounds, L>R, mild end exp wheezing) Heart: Regular Rate, No Murmurs Abdomen: Normal Bowel Sounds, Soft Extremities: Other (2+ pitting edema equal bilaterally) Results/Procedures Lab Laboratory Tests 01/17/21 04:20: White Blood Count 8.3, Red Blood Count 3.97, Hemoglobin 11.5, Hematocrit 38, Mean Corpuscular Volume 95, Mean Corpuscular Hemoglobin 29, Mean Corpuscular Hemoglobin Concent 31L, Red Cell Distribution Width 14.6H, Platelet Count 135, Mean Platelet Volume 10.4, Immature Granulocyte % (Auto) 1, Neutrophils (%) (Auto) 93H, Lymphocytes (%) (Auto) 4L, Monocytes (%) (Auto) 2, Eosinophils (%) (Auto) 0, Basophils (%) (Auto) 0, Neutrophils # (Auto) 7.7, Lymphocytes # (Auto) 0.4L, Monocytes # (Auto) 0.1, Eosinophils # (Auto) 0.0, Basophils # (Auto) 0.0, Immature Granulocyte # (Auto) 0.1, Sodium Level 134L, Potassium Level 4.6, Chloride Level 106, Carbon Dioxide Level 20L, Anion Gap 8, Blood Urea Nitrogen 47H, Creatinine 2.14H, Estimat Glomerular Filtration Rate 22, BUN/Creatinine Ratio 22, Glucose Level 186H, Calcium Level 8.1L, Corrected Calcium 8.9, Total Bilirubin 0.3, Aspartate Amino Transf (AST/SGOT) 11, Alanine Aminotransferase (ALT/SGPT) 18, Alkaline Phosphatase 78, Total Protein 5.1L, Albumin 3.0L Microbiology 01/14/21 Gram Stain - Final, Complete 01/14/21 Body Fluid Culture - Final, Complete No growth 01/12/21 Blood Culture - Preliminary, Resulted No growth Assessment/Plan Assessment/Plan (1) Acute and chronic respiratory failure with hypoxia Status: Acute Assessment & Plan: 01/17: Pleural effusion with PNA, Will continue to titrate oxygen as tolerated, will order PT (2) Pleural effusion Status: Acute Assessment & Plan: 01/17: Chest tube in Place, Dr Layton managing (3) COPD exacerbation Status: Acute Assessment & Plan: 01/17: Continue to titrate steroids (4) Pneumothorax, left Status: Acute (5) Renal failure (ARF), acute on chronic Status: Acute Assessment & Plan: 01/17: Cr stablizing, continue to hold lasix, Gentle hydration Qualifiers: (6) Diastolic CHF, acute on chronic Status: Acute Assessment & Plan: 01/17: Cardiology consulted, appreciate recommendations (7) HTN (hypertension) Status: Chronic (8) HLD (hyperlipidemia) Status: Chronic (9) Tobacco abuse Status: Chronic Assessment & Plan: - Discussed cessation (10) DVT prophylaxis Status: Acute Assessment & Plan: - VIKY Mckee MD Jan 17, 2021 14:46
--- NOTE | 2021-01-17 15:38 | Occupational Ther Daily Note ---
OT Current Status-Daily Note Subjective Pt reports pain as 9/10 and that she received pain meds not too long before OT arrival. Pt appears to have a high pain tolerance as she frequently stated "i'll be fine" Mental Status/Objective Attachments: Chest Tube, IV, Oxygen ADL-Treatment Therapy Code Descriptions/Definitions Functional [place] Measure: 0=Not Assessed/NA 4=Minimal Assistance 1=Total Assistance 5=Supervision or Setup 2=Maximal Assistance 6=Modified [place] 3=Moderate Assistance 7=Complete IndependenceSCALE: Activities may be completed with or without assistive devices. 2-Kxxfardrgz-dcohlqz completes the activity by him/herself with no assistance from a helper. 5-Set-up or Clean-up Assistance-helper sets up or cleans up; patient completes activity. [place] assists only prior to or following the activity. 4-Supervision or Touching Assistance-helper provides verbal cues and/or touching/steadying and/or contact guard assistance as patient completes activity. Assistance may be provided throughout the activity or intermittently. 3-Partial/Moderate Assistance-helper does LESS THAN HALF the effort. [place] lifts, holds or supports trunk or limbs, but provides less than half the effort. 2-Substantial/Maximal Assistance-helper does MORE THAN HALF the effort. [place] lifts or holds trunk or limbs and provides more than half the effort. 1-Ujtcylpdl-rwiecf does ALL the effort. Patient does none of the effort to complete the activity. Or, the assistance of 2 or more helpers is required for the patient to complete the activity. If activity was not attempted, code reason: 7-Patient Refused. 9-Not Applicable-not attempted and the patient did not perform the activity before the current illness, exacerbation or injury. 10-Not Attempted due to Environmental Limitations-(lack of equipment, weather restraints, etc.). 88-Not Attempted due to Medical Conditions or Safety Concerns. Toilet Transfer (QC): 4 (sba-cga) Other Treatment Pt able to demonstrate ability to don/doff socks with use of cross over method. SOB noted with exertion. Requires short rest break to recover. Sit<>stand with SBA. Mild unsteadiness but no significant LOB .Pt stood and marched in place for ~20 seconds before becoming fatigue and SOB. Siting rest break needed. As fatigue worsens, foot clearance reduces. Limited functional tasks performed secondary to chest tube. Pts daughter reports that pt lives a sedentary lifestyle and was only walking limited distances at [facility]. Education OT Patient Education: Energy conservation, Modified ADL techniques, Purpose of tx/functional activities, Rehab process, Safety issues, Transfer techniques Teaching Recipient: Patient Teaching Methods: Demonstration, Discussion Response to Teaching: Verbalize Understanding, Return Demonstration, Reinforcement Needed OT Short Term Goals Short Term Goals Eatin Oral hygiene: 6 Toileting hygiene: 4 Shower/bathe self: 4 Upper body dressin Lower body dressin Putting on/taking off footwear: 4 OT Warp Tying Machine Knotter Goals Penitentiary Goals Eating (QC): 6 Oral Hygiene (QC): 6 Toileting Hygiene (QC): 4 Shower/Bathe Self (QC): 4 Upper Body Dressing (QC): 4 Lower Body Dressing (QC): 4 On/Off Footwear (QC): 4 1=Demonstrate adherence to instructed precautions during ADL tasks. 2=Patient will verbalize/demonstrate understanding of assistive devices/modifications for ADL. 3=Patient will improve strength/tolerance for activity to enable patient to perform ADL's. OT Education/Plan Problem List/Assessment Assessment: Decreased Activ Tolerance, Decreased Safety Aware, Impaired Funct Balance, Impaired Self-Care Skills Discharge Recommendations Plan/Recommendations: Continue POC Treatment Plan/Plan of Care Patient would benefit from OT for education, treatment and training to promote independence in ADL's, mobility, safety and/or upper extremity function for ADL's. Plan of Care: ADL Retraining, Functional Mobility, UE Funct Exercise/Act Treatment Duration: Jan 21, 2021 Frequency: 5 times per week Estimated Hrs Per Day: .25 hour per day Agreement: Yes Rehab Potential: Fair Time/GCodes Start Time: 14:57 Stop Time: 15:08 Total Time Billed (hr/min): 11 Billed Treatment Time 1, ADL Linsey Terry OT Jan 17, 2021 15:38
--- NOTE | 2021-01-17 17:09 | Pulmonary Progress Note ---
Subjective Date Seen by a Provider: Jan 17, 2021 Time Seen by a Provider: 17:02 Subjective/Events-last exam Has chest tube stll in, PMNTX mostly resolved, appears to be transudate Feels better, tube might come out tomorrow Sepsis Event Evaluation Height, Weight, BMI Height: '" Weight: 205lbs. 8.0oz. kg; 36.76 BMI Method: Focused Exam Time of Focused Exam: 08:15 Exam Exam Patient acknowledged, consented, and participated in this virtual visit which was conducted using real time audio/video Vital Signs Date Time Temp Pulse Resp B/P (MAP) Pulse Ox O2 Delivery O2 Flow Rate FiO2 01/17/21 16:00 36.5 88 20 119/69 (86) 94 Nasal Cannula 5.00 01/17/21 14:52 94 Nasal Cannula 5.00 01/17/21 13:35 36.6 91 19 129/60 (83) 91 Nasal Cannula 5.00 01/17/21 12:29 95 01/17/21 12:00 36.7 71 18 147/63 (91) 94 Nasal Cannula 5.00 01/17/21 09:55 95 Nasal Cannula 5.00 01/17/21 08:00 Nasal Cannula 5.00 01/17/21 08:00 37.0 88 21 125/59 (81) 92 Nasal Cannula 5.00 01/17/21 06:59 96 Nasal Cannula 5.00 01/17/21 06:39 94 01/17/21 03:49 36.0 100 22 111/54 (73) 91 Nasal Cannula 5.00 01/17/21 02:49 97 Nasal Cannula 5.00 01/17/21 01:00 91 01/16/21 23:30 36.1 95 18 99/54 (69) 90 Nasal Cannula 5.00 01/16/21 21:58 93 Nasal Cannula 5.00 01/16/21 21:48 36.3 86 20 107/58 (74) 91 Nasal Cannula 5.00 01/16/21 20:02 Nasal Cannula 5.00 01/16/21 20:00 36.3 86 20 107/58 (74) 91 Nasal Cannula 5.00 01/16/21 19:25 93 Nasal Cannula 5.00 01/16/21 19:00 84 I & O 01/17/21 07:00 Intake Total 2180 ml Output Total 1520 ml Balance 660 ml Height & Weight Height: '" Weight: 205lbs. 8.0oz. kg; 36.76 BMI Method: General Appearance: No Apparent Distress, Chronically ill, Obese HEENT: PERRL/EOMI Neck: Normal Inspection, Non Tender, Supple Respiratory: No Accessory Muscle Use, No Respiratory Distress, Decreased Breath Sounds (bases; right worse than left), Wheezing Cardiovascular: Regular Rate, Rhythm, No Murmur Capillary Refill: Less Than 3 Seconds Gastrointestinal: non tender, soft, no organomegaly, hernia (incarcerated incisional hernia, appx baseball size) Extremity: Non Tender, No Calf Tenderness, Pedal Edema, Other (L upper extremity edema) Neurologic/Psychiatric: Alert, Oriented x3 Skin: Warm/Dry, Ecchymosis (bilateral dorsal hands d/t needle sticks) Lymphatic: No Adenopathy Results Lab Laboratory Tests 01/16/21 04:30 01/17/21 04:20 Assessment/Plan Assessment/Plan Doing better, tube to come out tomorrow?, would make sure pt sent home on diuretic, would have family by scale and check for weight gain, if > 5 lbs call Cytology is negative WADE GARDNER MD Jan 17, 2021 17:09
[2021-01-17] MEDS: ENOXAPARIN 30 MG/0.3 ML (LOVENOX) SYR SC SCH (18:18)
--- NOTE | 2021-01-17 18:52 | Progress Note - Cardiology ---
Cardiology SOAP Progress Note Subjective: Some discomfort at site of chest tube Breathing better than a few days ago No palp or syncope or swelling Gen malaise Non n/v/d Objective: I&O/Vital Signs 01/17/21 01/17/21 01/17/21 01/17/21 06:59 08:00 08:00 09:55 Temp 37.0 Pulse 88 Resp 21 B/P (MAP) 125/59 (81) Pulse Ox 96 92 95 O2 Delivery Nasal Cannula Nasal Cannula Nasal Cannula Nasal Cannula O2 Flow Rate 5.00 5.00 5.00 5.00 01/17/21 01/17/21 01/17/21 01/17/21 12:00 12:29 13:35 14:52 Temp 36.7 36.6 Pulse 71 95 91 Resp 18 19 B/P (MAP) 147/63 (91) 129/60 (83) Pulse Ox 94 91 94 O2 Delivery Nasal Cannula Nasal Cannula Nasal Cannula O2 Flow Rate 5.00 5.00 5.00 01/17/21 01/17/21 16:00 18:38 Temp 36.5 Pulse 88 Resp 20 B/P (MAP) 119/69 (86) Pulse Ox 94 95 O2 Delivery Nasal Cannula Nasal Cannula O2 Flow Rate 5.00 5.00 01/17/21 00:00 Intake Total 940 ml Output Total 1150 ml Balance -210 ml Weight (Pounds): 205 Weight (Ounces): 8.0 Constitutional: AAO x 3, well-developed, well-nourished Respiratory: No accessory muscle use; other (prolonged exp, scattered exp wheezes, diminished bs at L base) Cardiovascular: regular rate-rhythm, S1 and S2, systolic murmur (soft CRISTIANO at card base) Gastrointestional: No tender; soft; No guarding, No rebound; audible bowel sounds Extremities: No clubbing, No cyanosis, No significant edema Neurologic/Psychiatric: oriented x 3, other (moves all limbs equally) Skin: normal color, warm/dry; No rash on exposed areas, No ulcerations on exposed areas Results/Procedures: Labs Laboratory Tests 01/17/21 04:20: White Blood Count 8.3, Red Blood Count 3.97, Hemoglobin 11.5, Hematocrit 38, Mean Corpuscular Volume 95, Mean Corpuscular Hemoglobin 29, Mean Corpuscular Hemoglobin Concent 31L, Red Cell Distribution Width 14.6H, Platelet Count 135, Mean Platelet Volume 10.4, Immature Granulocyte % (Auto) 1, Neutrophils (%) (Auto) 93H, Lymphocytes (%) (Auto) 4L, Monocytes (%) (Auto) 2, Eosinophils (%) (Auto) 0, Basophils (%) (Auto) 0, Neutrophils # (Auto) 7.7, Lymphocytes # (Auto) 0.4L, Monocytes # (Auto) 0.1, Eosinophils # (Auto) 0.0, Basophils # (Auto) 0.0, Immature Granulocyte # (Auto) 0.1, Sodium Level 134L, Potassium Level 4.6, Chloride Level 106, Carbon Dioxide Level 20L, Anion Gap 8, Blood Urea Nitrogen 47H, Creatinine 2.14H, Estimat Glomerular Filtration Rate 22, BUN/Creatinine Ratio 22, Glucose Level 186H, Calcium Level 8.1L, Corrected Calcium 8.9, Total Bilirubin 0.3, Aspartate Amino Transf (AST/SGOT) 11, Alanine Aminotransferase (ALT/SGPT) 18, Alkaline Phosphatase 78, Total Protein 5.1L, Albumin 3.0L Microbiology 01/14/21 Gram Stain - Final, Complete 01/14/21 Body Fluid Culture - Final, Complete No growth 01/12/21 Blood Culture - Preliminary, Resulted No growth Laboratory Tests 01/16/21 04:30 01/17/21 04:20 Physician Assessment Physician Assessment Left-sided pleural effusion status post thoracentesis, pneumothorax, chest tube in place, chest x-ray showing improvement. Managed by primary care team COPD, chronic tobaccoism, dyspnea. Advised to quit smoking. Managed by primary care team Pulmonary hypertension probably due to obesity hypoventilation syndrome and obstructive sleep apnea. Continue to monitor CAD: Card cath of 03/25/19: mild to mod CAD, mild elevation of LVEDP Echocardiogram done on September 25, 2019 showing normal LV size, EF 60 to 65%, grade 2 diastolic dysfunction, moderate MR, PA pressure 60 mmHg. 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 Continue to monitor Hypertension, monitor blood pressure Hyperlipidemia, monitor lipids History of carotid stenosis, right carotid endarterectomy done in [place], last ultrasound done in August 2019 showing mild bilateral disease. Questionable history of congestive heart failure with preserved systolic function, currently stable. Continue to monitor Obesity, BMI 37. KARINE ALEXIS MD FACP FAC CCDS Jan 17, 2021 18:52
[2021-01-17] MEDS: MELATONIN 3 MG TABLET PO PRN (22:12)
[2021-01-18] MEDS: NS IV 1000 ML 1,000 ML IV SCH (01:02)
[2021-01-18] MEDS: RT-ALBUTEROL SULF 2.5 MG/3 ML PRE-MIX VIAL INH SCH ×6 (02:38→23:42)
[2021-01-18 04:06] VITALS: BP 120/70
[2021-01-18] MEDS: HYDROcodone/APAP 5 MG/325 MG (LORTAB) TAB PO PRN ×2 (05:56→22:02)
[2021-01-18] MEDS: CATHETER FLUSH 10 ML SYR IV SCH ×3 (06:03→22:02)
[2021-01-18 06:24] LABS: BASOPHILS % (AUTO) 0 % (0-10); EOSINOPHILS % (AUTO) 0 % (0-10); HEMATOCRIT 41 % (35-52); HEMOGLOBIN 12.4 g/dL (11.5-16.0); LYMPHOCYTES # (AUTO) 0.4 10^3/uL (1.0-4.0); LYMPHOCYTES % (AUTO) 4 % (12-44); MEAN CORPUSCULAR HEMOGLOBIN 29 pg (25-34); MEAN CORPUSCULAR HGB CONC 31 g/dL (32-36); MEAN CORPUSCULAR VOLUME 95 fL (80-99); MEAN PLATELET VOLUME 10.5 fL (9.0-12.2); MONOCYTES # (AUTO) 0.2 10^3/uL (0.0-1.0); MONOCYTES % (AUTO) 2 % (0-12); NEUTROPHILS % (AUTO) 92 % (42-75); PLATELET COUNT 145 10^3/uL (130-400); WHITE BLOOD COUNT 8.7 10^3/uL (4.3-11.0)
[2021-01-18 06:34] LABS: ALBUMIN 3.2 GM/DL (3.2-4.5); POTASSIUM 4.8 MMOL/L (3.6-5.0)
[2021-01-18 06:35] LABS: CALCIUM 8.4 MG/DL (8.5-10.1)
[2021-01-18 06:36] LABS: TOTAL PROTEIN 5.3 GM/DL (6.4-8.2)
[2021-01-18 06:38] LABS: BILIRUBIN,TOTAL 0.4 MG/DL (0.1-1.0)
[2021-01-18 06:40] LABS: CREATININE SERUM 2.09 MG/DL (0.60-1.30)
[2021-01-18 08:00] VITALS: BP 110/66
[2021-01-18] MEDS: methylPREDNISolone 125 MG (Solu-MEDROL) VIAL IVP SCH ×2 (08:27→22:01)
--- NOTE | 2021-01-18 08:40 | Progress Note - Surgery ---
VALENTIN MIGUEL X MED STUDENT 01/18/21 0840: Subjective Date Seen by a Provider: Jan 18, 2021 Time Seen by a Provider: 07:40 Subjective/Events-last exam Patient is resting comfortably in bed with CT clamped and in place. She complains of SOB and CP every now and then. She has pain at the CT site but denies pain elsewhere. She denies having a BM since being admitted. She is tolerating her diet, urinating without difficulty, and using her IS hourly. She denies ambulation. Review of Systems General: No Chills, No Night Sweats, No Fatigue, No Malaise HEENT: No Head Aches, No Visual Changes Pulmonary: Dyspnea; No Cough Cardiovascular: Chest Pain (at CT site) Gastrointestinal: No: Nausea, Vomiting, Abdominal Pain Genitourinary: No Dysuria, No Frequency Musculoskeletal: No: back pain Neurological: No: Weakness, Numbness Focused Exam Time of Focused Exam: 08:15 Objective Exam Vital Signs Date Time Temp Pulse Resp B/P (MAP) Pulse Ox O2 Delivery O2 Flow Rate FiO2 01/18/21 07:54 Nasal Cannula 5.00 01/18/21 06:29 92 Nasal Cannula 5.00 01/18/21 04:06 36.3 96 22 120/70 (87) 95 Nasal Cannula 5.00 01/18/21 02:38 91 Nasal Cannula 5.00 01/18/21 01:00 96 01/17/21 23:54 36.4 92 20 109/63 (78) 91 Nasal Cannula 5.00 01/17/21 21:03 91 Nasal Cannula 5.00 01/17/21 20:00 Nasal Cannula 5.00 01/17/21 19:37 36.6 100 20 123/69 (87) 95 Nasal Cannula 5.00 01/17/21 19:00 96 01/17/21 18:38 95 Nasal Cannula 5.00 01/17/21 16:00 36.5 88 20 119/69 (86) 94 Nasal Cannula 5.00 01/17/21 14:52 94 Nasal Cannula 5.00 01/17/21 13:35 36.6 91 19 129/60 (83) 91 Nasal Cannula 5.00 01/17/21 12:29 95 01/17/21 12:00 36.7 71 18 147/63 (91) 94 Nasal Cannula 5.00 01/17/21 09:55 95 Nasal Cannula 5.00 I & O 01/18/21 07:00 Intake Total 2040 ml Output Total 1000 ml Balance 1040 ml Capillary Refill : Less Than 3 Seconds General Appearance: No Apparent Distress, Chronically ill, Obese HEENT: PERRL/EOMI Neck: Normal Inspection, Non Tender, Supple Respiratory: No Accessory Muscle Use, No Respiratory Distress, Decreased Breath Sounds (right base), Wheezing Cardiovascular: Regular Rate, Rhythm, No Murmur Gastrointestinal: non tender, soft, no organomegaly, hernia (incarcerated incisional hernia, appx baseball size) Extremity: Non Tender, No Calf Tenderness, Pedal Edema, Other (L upper extremity edema) Neurologic/Psychiatric: Alert, Oriented x3 Skin: Warm/Dry, Ecchymosis (bilateral dorsal hands d/t needle sticks) Lymphatic: No Adenopathy Results Lab Laboratory Tests 01/18/21 06:15: White Blood Count 8.7, Red Blood Count 4.29, Hemoglobin 12.4, Hematocrit 41, Mean Corpuscular Volume 95, Mean Corpuscular Hemoglobin 29, Mean Corpuscular Hemoglobin Concent 31L, Red Cell Distribution Width 14.8H, Platelet Count 145, Mean Platelet Volume 10.5, Immature Granulocyte % (Auto) 1, Neutrophils (%) (Auto) 92H, Lymphocytes (%) (Auto) 4L, Monocytes (%) (Auto) 2, Eosinophils (%) (Auto) 0, Basophils (%) (Auto) 0, Neutrophils # (Auto) 8.0H, Lymphocytes # (Auto) 0.4L, Monocytes # (Auto) 0.2, Eosinophils # (Auto) 0.0, Basophils # (Auto) 0.0, Immature Granulocyte # (Auto) 0.1, Sodium Level 136, Potassium Level 4.8, Chloride Level 107, Carbon Dioxide Level 18L, Anion Gap 11, Blood Urea Nitrogen 48H, Creatinine 2.09H, Estimat Glomerular Filtration Rate 23, BUN/Creatinine Ratio 23, Glucose Level 170H, Calcium Level 8.4L, Corrected Calcium 9.0, Total Bilirubin 0.4, Aspartate Amino Transf (AST/SGOT) 20, Alanine Aminotransferase (ALT/SGPT) 37, Alkaline Phosphatase 92, Total Protein 5.3L, Albumin 3.2 Microbiology 01/14/21 Gram Stain - Final, Complete 01/14/21 Body Fluid Culture - Final, Complete No growth 01/12/21 Blood Culture - Preliminary, Resulted No growth Assessment/Plan Assessment/Plan Assessment/Plan Pneumothorax - Iatrogenic Pleural effusion MARY Incarcerated Incisional/Ventral Hernia Plan is to monitor CT. pleuravac clamped yesterday, total at 800. no airleaks visualized. Repeat CXR today, waiting on results. IV fluids and max medical management. Pt is not having problems with hernia at this time and would wait to fix it (if at all) as an outpt. HUAN SALAZAR DO 01/18/21 0946: Subjective Time Seen by a Provider: 08:50 Subjective/Events-last exam Pt seen and examined, still has some mild SOB but does not appear to be in any distress. She is tolerating diet. Review of Systems General: Fatigue, Malaise HEENT: No Head Aches, No Visual Changes Pulmonary: Dyspnea; No Cough Cardiovascular: Chest Pain (at CT site) Gastrointestinal: No: Nausea, Vomiting, Abdominal Pain Genitourinary: No Dysuria, No Frequency Objective Exam General Appearance: No Apparent Distress, Chronically ill, Obese Respiratory: No Accessory Muscle Use, No Respiratory Distress, Decreased Breath Sounds (right base), Wheezing, Other (serous fluid in tube leading to pleuravac and in pleuravac) Cardiovascular: Regular Rate, Rhythm, No Murmur Gastrointestinal: hernia (incarcerated incisional hernia, appx baseball size) Extremity: Pedal Edema, Other (L upper extremity edema) Assessment/Plan Assessment/Plan Assessment/Plan Pneumothorax - Iatrogenic Pleural effusion MARY Incarcerated Incisional/Ventral Hernia Pleuravac clamped yesterday and CXR today shows no pneumothorax; will D/C chest tube today. Pt is not having problems with hernia at this time and would wait to fix it (if at all) as an outpt. Supervisory-Addendum Brief Verification & Attestation Participated in pt care: history, MDM, physical Personally performed: exam, history, MDM, supervision of care Care discussed with: Medical Student Procedures: n/a Verification and Attestation of Medical Student E/M Service A medical student performed and documented this service. I then reviewed and verified all information documented by the medical student and made modifications to such information, when appropriate. I personally performed a physical exam, medical decision making and then discussed any differences between the notes and made revisions as necessary to create one note. Huan Salazar , 01/18/21 , 09:46 VALENTIN MIGUEL MED STUDENT Jan 18, 2021 08:40 HUAN SALAZAR DO Jan 18, 2021 09:46
--- NOTE | 2021-01-18 09:22 | Diagnostic Imaging Report ---
INDICATION: Chest tube followup. TECHNIQUE/COMPARISON: A frontal chest was obtained at 8:37 AM and compared to 01/17/2021. FINDINGS: Cardiomegaly is noted with an unchanged right basilar infiltrate. There is some mild central vascular congestion. The left-sided chest tube remains unchanged. There is no pneumothorax or gross pleural fluid. IMPRESSION: Unchanged cardiomegaly and mild central vascular prominence. Unchanged right basilar infiltrate. No pneumothorax or significant pleural fluid with a left-sided chest tube in place. Dictated by: Dictated on workstation # [id number]
--- NOTE | 2021-01-18 11:57 | Progress Note - Cardiology ---
Cardiology SOAP Progress Note Subjective: Gen malaise present Shortness of breath better Some chest discomfort with deep inspiration at site of chest tube No n/v/d No palp or syncope Objective: I&O/Vital Signs 01/17/21 01/18/21 01/18/21 01/18/21 23:54 01:00 02:38 04:06 Temp 36.4 36.3 Pulse 92 96 96 Resp 20 22 B/P (MAP) 109/63 (78) 120/70 (87) Pulse Ox 91 91 95 O2 Delivery Nasal Cannula Nasal Cannula Nasal Cannula O2 Flow Rate 5.00 5.00 5.00 01/18/21 01/18/21 01/18/21 01/18/21 06:29 06:41 07:54 08:00 Temp 36.5 Pulse 86 82 Resp 20 B/P (MAP) 110/66 (81) Pulse Ox 92 94 O2 Delivery Nasal Cannula Nasal Cannula Nasal Cannula O2 Flow Rate 5.00 5.00 5.00 01/18/21 10:42 Pulse Ox 96 O2 Delivery Nasal Cannula O2 Flow Rate 5.00 01/18/21 00:00 Intake Total 840 ml Output Total 400 ml Balance 440 ml Weight (Pounds): 205 Weight (Ounces): 8.0 Constitutional: AAO x 3, well-developed, well-nourished Respiratory: No accessory muscle use; other (prolonged exp, scattered exp wheezes, diminished bs at L base) Cardiovascular: regular rate-rhythm, S1 and S2, systolic murmur (soft CRISTIANO at card base) Gastrointestional: No tender; soft; No guarding, No rebound; audible bowel sounds Extremities: No clubbing, No cyanosis, No significant edema Neurologic/Psychiatric: oriented x 3, other (moves all limbs equally) Skin: normal color, warm/dry; No rash on exposed areas, No ulcerations on exposed areas Results/Procedures: Labs Laboratory Tests 01/18/21 06:15: White Blood Count 8.7, Red Blood Count 4.29, Hemoglobin 12.4, Hematocrit 41, Mean Corpuscular Volume 95, Mean Corpuscular Hemoglobin 29, Mean Corpuscular Hemoglobin Concent 31L, Red Cell Distribution Width 14.8H, Platelet Count 145, Mean Platelet Volume 10.5, Immature Granulocyte % (Auto) 1, Neutrophils (%) (Auto) 92H, Lymphocytes (%) (Auto) 4L, Monocytes (%) (Auto) 2, Eosinophils (%) (Auto) 0, Basophils (%) (Auto) 0, Neutrophils # (Auto) 8.0H, Lymphocytes # (Auto) 0.4L, Monocytes # (Auto) 0.2, Eosinophils # (Auto) 0.0, Basophils # (Auto) 0.0, Immature Granulocyte # (Auto) 0.1, Sodium Level 136, Potassium Level 4.8, Chloride Level 107, Carbon Dioxide Level 18L, Anion Gap 11, Blood Urea Nitrogen 48H, Creatinine 2.09H, Estimat Glomerular Filtration Rate 23, BUN/Creatinine Ratio 23, Glucose Level 170H, Calcium Level 8.4L, Corrected Calcium 9.0, Total Bilirubin 0.4, Aspartate Amino Transf (AST/SGOT) 20, Alanine Aminotransferase (ALT/SGPT) 37, Alkaline Phosphatase 92, Total Protein 5.3L, Albumin 3.2 01/18/21 11:43: Glucometer 201H Microbiology 01/14/21 Gram Stain - Final, Complete 01/14/21 Body Fluid Culture - Final, Complete No growth 01/12/21 Blood Culture - Preliminary, Resulted No growth Laboratory Tests 01/17/21 04:20 01/18/21 06:15 A/P: Assessment: Large, left-sided effusion, likely para-pneumonic, s/p thoracentesis COPD due to chronic smoking of cigarettes (continues to smoke) Probable component of acute HFpEF (as indicated by thoracic radiologic studies during this admission) Obesity (BMI 37) and besity-hypovent with RALF, treated with CPAP Pulm hypertension, likely due to obesity-hypoventilation and RALF, 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 Mod PASP approx 64 mmHg CKD 3 - followed by her vp rheumatology Hypertension, by history Hyperlipidemia, by history Chronic tobacco use (approx 40 pack-years) that she quit in mid-Feb 2019 Ventral abdominal hernia Carotid arterial disease. - S/p R CEA in [place], [place]. Pt does not recall surgeon or year of surgery. - Carotid u/s of September 18, 2019 showed mild bilat dz Plan: * Med Svce managing pneumonia * Diuretics as needed and as tolerated to treat fluid overload / diastolic CHF * Monitor labs closely * Advised to quit smoking immediately and completely KARINE ALEXIS MD [facility] Jan 18, 2021 11:57
--- NOTE | 2021-01-18 12:12 | Occupational Ther Daily Note ---
OT Current Status-Daily Note Subjective Pt complains of pain in chest as 8/10. Unable to recall time of last pain meds. Mental Status/Objective Attachments: IV, Oxygen ADL-Treatment Therapy Code Descriptions/Definitions Functional [place] Measure: 0=Not Assessed/NA 4=Minimal Assistance 1=Total Assistance 5=Supervision or Setup 2=Maximal Assistance 6=Modified Naylor 3=Moderate Assistance 7=Complete IndependenceSCALE: Activities may be completed with or without assistive devices. 9-Meiifswzdx-uwxtrts completes the activity by him/herself with no assistance from a helper. 5-Set-up or Clean-up Assistance-helper sets up or cleans up; patient completes activity. [place] assists only prior to or following the activity. 4-Supervision or Touching Assistance-helper provides verbal cues and/or touching/steadying and/or contact guard assistance as patient completes activity. Assistance may be provided throughout the activity or intermittently. 3-Partial/Moderate Assistance-helper does LESS THAN HALF the effort. [place] lifts, holds or supports trunk or limbs, but provides less than half the effort. 2-Substantial/Maximal Assistance-helper does MORE THAN HALF the effort. [place] lifts or holds trunk or limbs and provides more than half the effort. 2-Gcfndmipx-shcdev does ALL the effort. Patient does none of the effort to complete the activity. Or, the assistance of 2 or more helpers is required for the patient to complete the activity. If activity was not attempted, code reason: 7-Patient Refused. 9-Not Applicable-not attempted and the patient did not perform the activity b efore the current illness, exacerbation or injury. 10-Not Attempted due to Environmental Limitations-(lack of equipment, weather restraints, etc.). 88-Not Attempted due to Medical Conditions or Safety Concerns. Toileting Hygiene (QC): 4 (CGA) Toilet Transfer (QC): 3 (Min) Pt resting in bed at OT arrival. Agreeable to transfer to chair for lunch. Min cues for attention to lines during transfers. Chest tube removed this date. Pt ambualted short distance to commode and chair with steadying assist, no AD utilized. Mild unsteadiness with pt reaching out for furniture/wall. Pt desat to 88% post limited activity but able to recover within ~10 seconds post sitting. Pt sitting in chair, all needs within reach at end of session. RN informed. Education OT Patient Education: Energy conservation, Progress toward Goal/Update tx plan, Purpose of tx/functional activities, Transfer techniques Teaching Recipient: Patient Teaching Methods: Discussion Response to Teaching: Return Demonstration OT Short Term Goals Short Term Goals Eatin Oral hygiene: 6 Toileting hygiene: 4 Shower/bathe self: 4 Upper body dressin Lower body dressin Putting on/taking off footwear: 4 OT Transitional Kindergarten Teacher Goals M[facility] Goals Eating (QC): 6 Oral Hygiene (QC): 6 Toileting Hygiene (QC): 4 Shower/Bathe Self (QC): 4 Upper Body Dressing (QC): 4 Lower Body Dressing (QC): 4 On/Off Footwear (QC): 4 1=Demonstrate adherence to instructed precautions during ADL tasks. 2=Patient will verbalize/demonstrate understanding of assistive devices/modifications for ADL. 3=Patient will improve strength/tolerance for activity to enable patient to perform ADL's. OT Education/Plan Problem List/Assessment Assessment: Decreased Activ Tolerance, Decreased Safety Aware, Impaired Funct Balance, Impaired Self-Care Skills Discharge Recommendations Plan/Recommendations: Continue POC Treatment Plan/Plan of Care Treatment,Training & Education: Yes Patient would benefit from OT for education, treatment and training to promote independence in ADL's, mobility, safety and/or upper extremity function for ADL's. Plan of Care: ADL Retraining, Functional Mobility, UE Funct Exercise/Act Treatment Duration: Jan 21, 2021 Frequency: 5 times per week Estimated Hrs Per Day: .25 hour per day Agreement: Yes Rehab Potential: Fair Time/GCodes Start Time: 11:32 Stop Time: 11:44 Total Time Billed (hr/min): 12 Billed Treatment Time 1, ADL Linsey Terry OT Jan 18, 2021 12:12
[2021-01-18 12:55] VITALS: BP 117/72
--- NOTE | 2021-01-18 14:29 | Physical Therapy Evaluation ---
PT Evaluation-General Medical Diagnosis Admission Date Jan 12, 2021 at 17:35 Medical Diagnosis: dyspnea/Pleural effusion Onset Date: Jan 12, 2021 Therapy Diagnosis Therapy Diagnosis: debility/weakness Height/Weight Weight (Pounds): 205 Weight (Ounces): 8.0 Precautions Precautions/Isolations: Standard Precautions Referral Physician: Je Reason for Referral: Evaluation/Treatment Medical History Pertinent Medical History: CAD, COPD, HTN, Neuropathy, Smoking Current History s/p chest tube with removal on this date. Patient has been in bed x 4 days per physician Reviewed History: Yes Social History Home: Single Level Current Living Status: Other Family Prior Prior Level of Function SCALE: Activities may be completed with or without assistive devices. 0-Zgzoktqeem-ipqwunk completes the activity by him/herself with no assistance from a helper. 5-Set-up or Clean-up Assistance-helper sets up or cleans up; patient completes activity. [place] assists only prior to or following the activity. 4-Supervision or Touching Assistance-helper provides verbal cues and/or touching/steadying and/or contact guard assistance as patient completes activity. Assistance may be provided throughout the activity or intermittently. 3-Partial/Moderate Assistance-helper does LESS THAN HALF the effort. [place] lifts, holds or supports trunk or limbs, but provides less than half the effort. 2-Substantial/Maximal Assistance-helper does MORE THAN HALF the effort. [place] lifts or holds trunk or limbs and provides more than half the effort. 1-Gxzxvsgnx-oszkxc does ALL the effort. Patient does none of the effort to complete the activity. Or, the assistance of 2 or more helpers is required for the patient to complete the activity. If activity was not attempted, code reason: 7-Patient Refused. 9-Not Applicable-not attempted and the patient did not perform the activity before the current illness, exacerbation or injury. 10-Not Attempted due to Environmental Limitations-(lack of equipment, weather restraints, etc.). 88-Not Attempted due to Medical Conditions or Safety Concerns. Bed Mobility: 6 Transfers (B,C,W/C): 6 Gait: 6 Stairs: 6 Indoor Mobility (Ambulation): Independent Stairs: Independent Prior Devices Use: None PT Evaluation-Current Subjective Patient agrees to PT. Family present Objective Patient Orientation: Normal For Age Attachments: Oxygen (4L NC), IV ROM/Strength ROM Lower Extremities bilateral LE WFL Strength Lower Extremities 4-/5 grossly bilateral LE Integumentary/Posture Bowel Incontinence: No Bladder Incontinence: No Posture WFL Neuromuscular (Tone, Coordination, Reflexes) grossly intact Sensory Vision: Functional Hearing: Functional Transfers Roll Left to Right (QC): 4 Sit to Lying (QC): 4 Lying to Sitting/Side of Bed(Q: 4 Sit to Stand (QC): 4 Chair/Ffd-wy-Frumi Xfer(QC): 4 Gait Does the Patient Walk?: Yes Mode of Locomotion: Walk Anticipated Mode of Locomotion: Walk Walk 10 feet (QC): 4 Walk 50 ft with 2 Turns(QC): 4 Walk 150 ft (QC): 4 Distance: 250' Gait Assistive Device: FWW Comments/Gait Description safe and functional with no deviation Balance Sitting Static: Normal Sitting Dynamic: Normal Standing Static: Good Standing Dynamic: Good Assessment/Needs 80 y.o. female, will benefit from short term skilled PT to address functional mobility to ensure safe return to home with family at maximum LOF. Rehab Potential: Fair PT Fdc Goals Fdc Goals PT Technical Communicator Goals Time Frame: Jan 29, 2021 Roll Left & Right (QC): 6 Sit to Lying (QC): 6 Lying-Sitting on Side/Bed(QC): 6 Sit to Stand (QC): 6 Chair/Pta-zl-Aznnp Xfer(QC): 6 Toilet Transfer (QC): 6 Walk 10 feet (QC): 6 Walk 50ft with 2 Turns (QC): 6 Walk 150 ft (QC): 6 PT Plan Problem List Problem List: Activity Tolerance, Functional Strength, Gait, Transfer, Bed Mobility Treatment/Plan Treatment Plan: Continue Plan of Care Treatment Plan: Bed Mobility, Education, Functional Activity Faraz, Functional Strength, Gait, Safety, Therapeutic Exercise, Transfers Treatment Duration: Jan 29, 2021 Frequency: 6 times per week Estimated Hrs Per Day: .25 hour per day Patient and/or Family Agrees t: Yes Time/GCodes Time In: 1355 Time Out: 1410 Total Billed Treatment Time: 15 Total Billed Treatment 1 visit EVModC 15 min SHERRI HERMOSILLO PT Jan 18, 2021 14:29
[2021-01-18 16:00] VITALS: BP 121/58
[2021-01-18] MEDS: ENOXAPARIN 30 MG/0.3 ML (LOVENOX) SYR SC SCH (17:23)
[2021-01-18 20:05] VITALS: BP 128/58
--- NOTE | 2021-01-18 20:59 | Progress Note ---
Subjective Subjective/Events-last exam Patient feeling better this AM. Awaiting surgery to decide on chest tube removal. Clamped ON. Tolerating PO diet. Has not been OOB due to chest tube other then to commode. Previously independent with ambulation at home. Review of Systems Pulmonary: Dyspnea, Cough Cardiovascular: No: Chest Pain, Palpitations Gastrointestinal: No: Nausea, Vomiting, Abdominal Pain Neurological: Weakness, Incoordination Focused Exam Time of Focused Exam: 08:15 Objective Exam Last Set of Vital Signs Vital Signs Date Time Temp Pulse Resp B/P (MAP) Pulse Ox O2 Delivery O2 Flow Rate FiO2 01/18/21 20:05 36.5 84 20 128/58 (81) 94 01/18/21 19:40 Nasal Cannula 2.00 01/12/21 23:14 40 Capillary Refill : Less Than 3 Seconds I&O Intake and Output 01/18/21 00:00 Intake Total 2080 ml Output Total 770 ml Balance 1310 ml Intake Oral 1080 ml IV Total 1000 ml Output Urine Total 700 ml Chest Tube Drainage Total 70 ml # Voids 2 General: Alert, Oriented X3, No Acute Distress Lungs: Clear to Auscultation, Normal Air Movement, Other (Normal work of breathing at rest) Heart: Regular Rate, No Murmurs Abdomen: Normal Bowel Sounds, Soft Extremities: Other (2+ pitting edema equal bilaterally) Results/Procedures Lab Laboratory Tests 01/18/21 06:15: White Blood Count 8.7, Red Blood Count 4.29, Hemoglobin 12.4, Hematocrit 41, Mean Corpuscular Volume 95, Mean Corpuscular Hemoglobin 29, Mean Corpuscular Hemoglobin Concent 31L, Red Cell Distribution Width 14.8H, Platelet Count 145, Mean Platelet Volume 10.5, Immature Granulocyte % (Auto) 1, Neutrophils (%) (Auto) 92H, Lymphocytes (%) (Auto) 4L, Monocytes (%) (Auto) 2, Eosinophils (%) (Auto) 0, Basophils (%) (Auto) 0, Neutrophils # (Auto) 8.0H, Lymphocytes # (Auto) 0.4L, Monocytes # (Auto) 0.2, Eosinophils # (Auto) 0.0, Basophils # (Auto) 0.0, Immature Granulocyte # (Auto) 0.1, Sodium Level 136, Potassium Level 4.8, Chloride Level 107, Carbon Dioxide Level 18L, Anion Gap 11, Blood Urea Nitrogen 48H, Creatinine 2.09H, Estimat Glomerular Filtration Rate 23, BUN/Cr eatinine Ratio 23, Glucose Level 170H, Calcium Level 8.4L, Corrected Calcium 9.0, Total Bilirubin 0.4, Aspartate Amino Transf (AST/SGOT) 20, Alanine Aminotransferase (ALT/SGPT) 37, Alkaline Phosphatase 92, Total Protein 5.3L, Albumin 3.2 01/18/21 11:43: Glucometer 201H Microbiology 01/14/21 Gram Stain - Final, Complete 01/14/21 Body Fluid Culture - Final, Complete No growth 01/12/21 Blood Culture - Final, Complete No growth Assessment/Plan Assessment/Plan (1) Acute and chronic respiratory failure with hypoxia Status: Acute Assessment & Plan: 01/17: Pleural effusion with PNA, Will continue to titrate oxygen as tolerated, will order PT 01/18: Pneumo resolved, chest tube clamped, awaiting surgery for possible removal today (2) Pleural effusion Status: Acute Assessment & Plan: 01/17: Chest tube in Place, Dr Layton managing (3) COPD exacerbation Status: Acute Assessment & Plan: 01/17: Continue to titrate steroids (4) Pneumothorax, left Status: Acute (5) Renal failure (ARF), acute on chronic Status: Acute Assessment & Plan: 01/17: Cr stablizing, continue to hold lasix, Gentle h ydration 01/18: Cr trending down, Avoid renal medications, No NSAIDS, encourage PO hydration Qualifiers: (6) Diastolic CHF, acute on chronic Status: Acute Assessment & Plan: 01/17: Cardiology consulted, appreciate recommendations (7) HTN (hypertension) Status: Chronic (8) HLD (hyperlipidemia) Status: Chronic (9) Tobacco abuse Status: Chronic Assessment & Plan: - Discussed cessation (10) DVT prophylaxis Status: Acute Assessment & Plan: - Lovenox (11) Physical debility Status: Acute Assessment & Plan: 01/18: PT to evaluate, SNF vs PT, looking for discharge /Sunday VIKY CHEATHAM MD Jan 18, 2021 20:59
[2021-01-18] MEDS: MELATONIN 3 MG TABLET PO PRN (22:01)
[2021-01-18 23:09] VITALS: BP 101/58
[2021-01-19] MEDS: RT-ALBUTEROL SULF 2.5 MG/3 ML PRE-MIX VIAL INH SCH ×6 (02:57→22:23)
[2021-01-19 03:11] VITALS: BP 136/62
[2021-01-19] MEDS: CATHETER FLUSH 10 ML SYR IV SCH ×3 (05:49→21:27)
[2021-01-19] MEDS: HYDROcodone/APAP 5 MG/325 MG (LORTAB) TAB PO PRN ×2 (05:49→21:27)
[2021-01-19 06:42] LABS: POTASSIUM 5.4 MMOL/L (3.6-5.0)
[2021-01-19 06:43] LABS: CALCIUM 8.5 MG/DL (8.5-10.1)
[2021-01-19 06:47] LABS: CREATININE SERUM 1.86 MG/DL (0.60-1.30)
[2021-01-19 08:00] VITALS: BP 120/61
[2021-01-19] MEDS: methylPREDNISolone 125 MG (Solu-MEDROL) VIAL IVP SCH ×2 (08:19→21:27)
--- NOTE | 2021-01-19 11:03 | Progress Note - Cardiology ---
Cardiology SOAP Progress Note Subjective: Gen malaise and weakness No n/v/d Shortness of breath is better No cp or palp or syncope Objective: I&O/Vital Signs 01/18/21 01/19/21 01/19/21 01/19/21 23:09 01:00 02:57 03:11 Temp 36.2 35.4 Pulse 87 77 65 Resp 20 22 B/P (MAP) 101/58 (72) 136/62 (86) Pulse Ox 93 95 96 O2 Delivery Nasal Cannula O2 Flow Rate 2.00 01/19/21 01/19/21 01/19/21 01/19/21 06:39 07:03 08:00 08:00 Temp 36.2 Pulse 76 74 Resp 20 B/P (MAP) 120/61 (80) Pulse Ox 97 96 O2 Delivery Nasal Cannula Nasal Cannula Nasal Cannula O2 Flow Rate 2.00 2.00 4.00 01/19/21 10:39 Pulse Ox 95 O2 Delivery Nasal Cannula O2 Flow Rate 2.00 01/19/21 00:00 Intake Total 1090 ml Output Total 800 ml Balance 290 ml Weight (Pounds): 205 Weight (Ounces): 8.0 Constitutional: AAO x 3, well-developed, well-nourished Respiratory: No accessory muscle use; other (prolonged exp, scattered exp wheezes, diminished bs at L base) Cardiovascular: regular rate-rhythm, S1 and S2, systolic murmur (soft CRISTIANO at card base) Gastrointestional: No tender; soft; No guarding, No rebound; audible bowel sounds Extremities: No clubbing, No cyanosis, No significant edema Neurologic/Psychiatric: oriented x 3, other (moves all limbs equally) Skin: normal color, warm/dry; No rash on exposed areas, No ulcerations on exposed areas Results/Procedures: Labs Laboratory Tests 01/18/21 11:43: Glucometer 201H 01/19/21 05:07: Sodium Level 138, Potassium Level 5.4H, Chloride Level 109H, Carbon Dioxide Level 21, Anion Gap 8, Blood Urea Nitrogen 48H, Creatinine 1.86H, Estimat Glomerular Filtration Rate 26, BUN/Creatinine Ratio 26, Glucose Level 162H, Calcium Level 8.5 Microbiology 01/14/21 Gram Stain - Final, Complete 01/14/21 Body Fluid Culture - Final, Complete No growth 01/12/21 Blood Culture - Final, Complete No growth Laboratory Tests 01/18/21 06:15 01/19/21 05:07 A/P: Assessment: Large, left-sided effusion, s/p thoracentesis COPD due to chronic smoking of cigarettes (continues to smoke) Probable component of acute HFpEF (as indicated by thoracic radiologic studies during this admission) Obesity (BMI 37) and besity-hypovent with RALF, treated with CPAP Pulm hypertension, likely due to obesity-hypoventilation and RALF, 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 Mod . PASP approx 64 mmHg CKD 3 - followed by her court manager Hypertension, by history Hyperlipidemia, by history Chronic tobacco use (approx 40 pack-years) that she quit in mid-Feb 2019 Ventral abdominal hernia Carotid arterial disease. - S/p R CEA in [place]. Pt does not recall surgeon or year of surgery. - Carotid u/s of September 18, 2019 showed mild bilat dz Plan: * Diuretics as needed and as tolerated to treat fluid overload / diastolic CHF * Monitor labs closely * Advised to quit smoking immediately and completely KARINE ALEXIS MD FACP [facility] CCDS Jan 19, 2021 11:03
[2021-01-19 11:15] VITALS: BP 146/65
--- NOTE | 2021-01-19 14:23 | Physical Therapy Daily Note ---
PT Daily Note-Current Subjective Pt sitting in recliner upon arrival. Pt agrees to PT. Pain Location: No Pain Reported Mental Status Patient Orientation: Person, Place, Time, Situation Attachments: Oxygen Transfers SCALE: Activities may be completed with or without assistive devices. 4-Pofnrylnwp-xblobfw completes the activity by him/herself with no assistance from a helper. 5-Set-up or Clean-up Assistance-helper sets up or cleans up; patient completes activity. [place] assists only prior to or following the activity. 4-Supervision or Touching Assistance-helper provides verbal cues and/or touching/steadying and/or contact guard assistance as patient completes activity. Assistance may be provided throughout the activity or intermittently. 3-Partial/Moderate Assistance-helper does LESS THAN HALF the effort. [place] lifts, holds or supports trunk or limbs, but provides less than half the effort. 2-Substantial/Maximal Assistance-helper does MORE THAN HALF the effort. [place] lifts or holds trunk or limbs and provides more than half the effort. 7-Hcwdxizgk-wmacmd does ALL the effort. Patient does none of the effort to complete the activity. Or, the assistance of 2 or more helpers is required for the patient to complete the activity. If activity was not attempted, code reason: 7-Patient Refused. 9-Not Applicable-not attempted and the patient did not perform the activity before the current illness, exacerbation or injury. 10-Not Attempted due to Environmental Limitations-(lack of equipment, weather restraints, etc.). 88-Not Attempted due to Medical Conditions or Safety Concerns. Sit to Stand (QC): 4 Weight Bearing Full Weight Bearing Full Weight Bearing Gait Training Does the Patient Walk?: Yes Distance: 250' Walk 10 feet (QC): 5 Walk 50 ft with 2 Turns(QC): 5 Walk 150 ft (QC): 5 Gait Persons Needed: 1 Gait Assistive Device: FWW Treatments TF to standing and pt amb. in hallway. Pt returns to room to rest in recliner at end of walk due to fatigue. All needs met, call light in hand. Assessment Current Status: Good Progress Pt fatigued at end of walk. PT Long-Term Goals Long-Term Goals PT Long-Term Goals Time Frame: Jan 29, 2021 Roll Left & Right (QC): 6 Sit to Lying (QC): 6 Lying-Sitting on Side/Bed(QC): 6 Sit to Stand (QC): 6 Chair/Xeq-tr-Rvbto Xfer(QC): 6 Toilet Transfer (QC): 6 Walk 10 feet (QC): 6 Walk 50ft with 2 Turns (QC): 6 Walk 150 ft (QC): 6 PT Plan Problem List Problem List: Activity Tolerance Treatment/Plan Treatment Plan: Continue Plan of Care Treatment Plan: Bed Mobility, Education, Functional Activity Faraz, Functional Strength, Gait, Safety, Therapeutic Exercise, Transfers Treatment Duration: Jan 29, 2021 Frequency: 6 times per week Estimated Hrs Per Day: .25 hour per day Patient and/or Family Agrees t: Yes Time/GCodes Time In: 1135 Time Out: 1145 Total Billed Treatment Time: 10 Total Billed Treatment 1, GT (10m) OCHOA CHEUNG GRAIN OPERATIONS MANAGER Jan 19, 2021 14:22
--- NOTE | 2021-01-19 14:26 | Occupational Ther Daily Note ---
OT Current Status-Daily Note Subjective "I would love to brush my teeth." Mental Status/Objective Pt with poor working memory. ADL-Treatment Therapy Code Descriptions/Definitions Functional [place] Measure: 0=Not Assessed/NA 4=Minimal Assistance 1=Total Assistance 5=Supervision or Setup 2=Maximal Assistance 6=Modified [place] 3=Moderate Assistance 7=Complete IndependenceSCALE: Activities may be completed with or without assistive devices. 7-Kogobzsfrp-mnaixxa completes the activity by him/herself with no assistance from a helper. 5-Set-up or Clean-up Assistance-helper sets up or cleans up; patient completes activity. [place] assists only prior to or following the activity. 4-Supervision or Touching Assistance-helper provides verbal cues and/or touching/steadying and/or contact guard assistance as patient completes activity. Assistance may be provided throughout the activity or intermittently. 3-Partial/Moderate Assistance-helper does LESS THAN HALF the effort. [place] lifts, holds or supports trunk or limbs, but provides less than half the effort. 2-Substantial/Maximal Assistance-helper does MORE THAN HALF the effort. [place] lifts or holds trunk or limbs and provides more than half the effort. 3-Llkqoivjk-gfjpay does ALL the effort. Patient does none of the effort to complete the activity. Or, the assistance of 2 or more helpers is required for the patient to complete the activity. If activity was not attempted, code reason: 7-Patient Refused. 9-Not Applicable-not attempted and the patient did not perform the activity before the current illness, exacerbation or injury. 10-Not Attempted due to Environmental Limitations-(lack of equipment, weather restraints, etc.). 88-Not Attempted due to Medical Conditions or Safety Concerns. Oral Hygiene (QC): 4 (steadying assist) Pt stood to brush teeth (dentures), steadying assist required. Mild unsteadiness with zero UE support. Improves post cues to utilize sink for extra support. Pt easily fatigues and requires sitting rest break post minimal activity. She returns to chair with all needs within reach at end of session. Education OT Patient Education: Energy conservation, Modified ADL techniques, Progress toward Goal/Update tx plan, Purpose of tx/functional activities, Safety issues Teaching Recipient: Patient Teaching Methods: Discussion Response to Teaching: Return Demonstration, Reinforcement Needed OT Short Term Goals Short Term Goals Eatin Oral hygiene: 6 Toileting hygiene: 4 Shower/bathe self: 4 Upper body dressin Lower body dressin Putting on/taking off footwear: 4 OT Fabric Cutter Goals Senior Care Goals Eating (QC): 6 Oral Hygiene (QC): 6 Toileting Hygiene (QC): 4 Shower/Bathe Self (QC): 4 Upper Body Dressing (QC): 4 Lower Body Dressing (QC): 4 On/Off Footwear (QC): 4 1=Demonstrate adherence to instructed precautions during ADL tasks. 2=Patient will verbalize/demonstrate understanding of assistive devices/m odifications for ADL. 3=Patient will improve strength/tolerance for activity to enable patient to perform ADL's. OT Education/Plan Problem List/Assessment Assessment: Decreased Activ Tolerance, Decreased Safety Aware, Decreased UE Strength, Impaired Funct Balance, Impaired Self-Care Skills Discharge Recommendations Plan/Recommendations: Continue POC Treatment Plan/Plan of Care Treatment,Training & Education: Yes Patient would benefit from OT for education, treatment and training to promote independence in ADL's, mobility, safety and/or upper extremity function for ADL's. Plan of Care: ADL Retraining, Functional Mobility, UE Funct Exercise/Act Treatment Duration: Jan 21, 2021 Frequency: 5 times per week Estimated Hrs Per Day: .25 hour per day Agreement: Yes Rehab Potential: Fair Time/GCodes Start Time: 13:46 Stop Time: 14:00 Total Time Billed (hr/min): 14 Billed Treatment Time 1, ADL Linsey Terry OT Jan 19, 2021 14:26
[2021-01-19 15:59] VITALS: BP 123/60
[2021-01-19] MEDS: ENOXAPARIN 30 MG/0.3 ML (LOVENOX) SYR SC SCH (16:43)
[2021-01-19 20:00] VITALS: BP 145/66
[2021-01-19] MEDS: MELATONIN 3 MG TABLET PO PRN (21:27)
--- NOTE | 2021-01-19 22:18 | Progress Note ---
Subjective Subjective/Events-last exam Patient feeling better this AM. States that she was up walking the halls last night. Still feeling weak. Tolerating PO diet. Review of Systems General: Fatigue Pulmonary: Dyspnea, Cough Cardiovascular: Edema; No: Chest Pain Gastrointestinal: No: Nausea, Vomiting, Abdominal Pain, Diarrhea, Constipation Neurological: Weakness, Incoordination Focused Exam Time of Focused Exam: 08:15 Objective Exam Last Set of Vital Signs Vital Signs Date Time Temp Pulse Resp B/P (MAP) Pulse Ox O2 Delivery O2 Flow Rate FiO2 01/19/21 20:00 36.3 81 20 145/66 (92) 96 Nasal Cannula 2.00 Capillary Refill : Less Than 3 Seconds I&O Intake and Output 01/19/21 00:00 Intake Total 2290 ml Output Total 1400 ml Balance 890 ml Intake Oral 1290 ml IV Total 1000 ml Output Urine Total 1400 ml Results/Procedures Lab Laboratory Tests 01/19/21 05:07: Sodium Level 138, Potassium Level 5.4H, Chloride Level 109H, Carbon Dioxide Level 21, Anion Gap 8, Blood Urea Nitrogen 48H, Creatinine 1.86H, Estimat Glomerular Filtration Rate 26, BUN/Creatinine Ratio 26, Glucose Level 162H, Calcium Level 8.5 Microbiology 01/14/21 Gram Stain - Final, Complete 01/14/21 Body Fluid Culture - Final, Complete No growth 01/12/21 Blood Culture - Final, Complete No growth Assessment/Plan Assessment/Plan (1) Acute and chronic respiratory failure with hypoxia Status: Acute Assessment & Plan: 01/17: Pleural effusion with PNA, Will continue to titrate oxygen as tolerated, will order PT 01/18: Pneumo resolved, chest tube clamped, awaiting surgery for possible removal today 01/19: Improving, will continue to titrate as tolerated, will do home oxygen study tomorrow, crackles still present, will give 1 dose of lasix (2) Pleural effusion Status: Acute Assessment & Plan: 01/17: Chest tube in Place, Dr Layton managing (3) COPD exacerbation Status: Acute Assessment & Plan: 01/17: Continue to titrate steroids (4) Pneumothorax, left Status: Resolved (5) Renal failure (ARF), acute on chronic Status: Acute Assessment & Plan: 01/17: Cr stablizing, continue to hold lasix, Gentle hydration 01/18: Cr trending down, Avoid renal medications, No NSAIDS, encourage PO hydration 01/19: Trending down, continue to monitor, No NSAIDs Qualifiers: (6) Diastolic CHF, acute on chronic Status: Acute Assessment & Plan: 01/17: Cardiology consulted, appreciate recommendations (7) HTN (hypertension) Status: Chronic (8) HLD (hyperlipidemia) Status: Chronic (9) Tobacco abuse Status: Chronic Assessment & Plan: - Discussed cessation (10) DVT prophylaxis Status: Acute Assessment & Plan: - Lovenox (11) Physical debility Status: Acute Assessment & Plan: 01/18: PT to evaluate, SNF vs HH PT, looking for discharge /Friday 01/19: Plan to d/c home with HH, will need script for VIKY Witt MD Jan 19, 2021 22:18
[2021-01-19 23:57] VITALS: BP 111/65
[2021-01-20] VITALS (7 sets, daily range): BP systolic 115–147; BP diastolic 58–75
[2021-01-20] MEDS: RT-ALBUTEROL SULF 2.5 MG/3 ML PRE-MIX VIAL INH SCH ×5 (02:21→20:17)
[2021-01-20] MEDS: HYDROcodone/APAP 5 MG/325 MG (LORTAB) TAB PO PRN (04:14)
[2021-01-20 05:21] LABS: ALBUMIN 2.9 GM/DL (3.2-4.5); BILIRUBIN,TOTAL 0.5 MG/DL (0.1-1.0); CALCIUM 8.3 MG/DL (8.5-10.1); CREATININE SERUM 1.7 MG/DL (0.60-1.30); POTASSIUM 6.2 MMOL/L (3.6-5.0); TOTAL PROTEIN 4.6 GM/DL (6.4-8.2)
[2021-01-20] MEDS: CATHETER FLUSH 10 ML SYR IV SCH ×3 (06:29→19:56)
[2021-01-20] MEDS: predniSONE 20 MG TAB PO SCH (06:29)
[2021-01-20] MEDS ORDERED: FUROSEMIDE 40 MG/4 ML INJ (LASIX) IVP ONE (09:00)
--- NOTE | 2021-01-20 09:52 | Physical Therapy Daily Note ---
PT Daily Note-Current Subjective Patient agrees to PT. Mental Status Patient Orientation: Normal For Age Attachments: Oxygen Transfers SCALE: Activities may be completed with or without assistive devices. 3-Rdvjjjotkk-rdmrhqh completes the activity by him/herself with no assistance from a helper. 5-Set-up or Clean-up Assistance-helper sets up or cleans up; patient completes activity. [place] assists only prior to or following the activity. 4-Supervision or Touching Assistance-helper provides verbal cues and/or touching/steadying and/or contact guard assistance as patient completes activity. Assistance may be provided throughout the activity or intermittently. 3-Partial/Moderate Assistance-helper does LESS THAN HALF the effort. [place] lifts, holds or supports trunk or limbs, but provides less than half the effort. 2-Substantial/Maximal Assistance-helper does MORE THAN HALF the effort. [place] lifts or holds trunk or limbs and provides more than half the effort. 1-Nijxvxhox-ztsqwa does ALL the effort. Patient does none of the effort to complete the activity. Or, the assistance of 2 or more helpers is required for the patient to complete the activity. If activity was not attempted, code reason: 7-Patient Refused. 9-Not Applicable-not attempted and the patient did not perform the activity before the current illness, exacerbation or injury. 10-Not Attempted due to Environmental Limitations-(lack of equipment, weather restraints, etc.). 88-Not Attempted due to Medical Conditions or Safety Concerns. Lying to Sitting/Side of Bed(Q: 6 Sit to Stand (QC): 6 Chair/Nbh-vu-Ptllf Xfer(QC): 6 Weight Bearing Full Weight Bearing Full Weight Bearing Gait Training Does the Patient Walk?: Yes Distance: 325' Walk 10 feet (QC): 6 Walk 50 ft with 2 Turns(QC): 6 Walk 150 ft (QC): 6 Gait Assistive Device: FWW FWW for energy conservation Assessment Patient is up in recliner with needs met. Plan dismissal this week per report. PT New Business Clerk Goals Retirement Goals PT New Business Clerk Goals Time Frame: Jan 29, 2021 Roll Left & Right (QC): 6 Sit to Lying (QC): 6 Lying-Sitting on Side/Bed(QC): 6 Sit to Stand (QC): 6 Chair/Erz-gh-Ddels Xfer(QC): 6 Toilet Transfer (QC): 6 Walk 10 feet (QC): 6 Walk 50ft with 2 Turns (QC): 6 Walk 150 ft (QC): 6 PT Plan Treatment/Plan Treatment Plan: Continue Plan of Care Treatment Plan: Bed Mobility, Education, Functional Activity Faraz, Functional Strength, Gait, Safety, Therapeutic Exercise, Transfers Treatment Duration: Jan 29, 2021 Frequency: 6 times per week Estimated Hrs Per Day: .25 hour per day Patient and/or Family Agrees t: Yes Time/GCodes Time In: 900 Time Out: 911 Total Billed Treatment Time: 11 Total Billed Treatment 1 visit FA 11 min SHERRI HERMOSILLO PT Jan 20, 2021 09:52
--- NOTE | 2021-01-20 10:48 | Progress Note - Cardiology ---
Cardiology SOAP Progress Note Subjective: Gen malaise and weakness No cp or palp or syncope No shortness of breath at rest No n/v/d Objective: I&O/Vital Signs 01/19/21 01/20/21 01/20/21 01/20/21 23:57 01:00 02:21 04:35 Temp 36.3 36.3 Pulse 83 84 87 Resp 20 22 B/P (MAP) 111/65 (80) 115/68 (84) Pulse Ox 94 92 95 O2 Delivery Nasal Cannula Nasal Cannula Nasal Cannula O2 Flow Rate 2.00 2.00 2.00 01/20/21 01/20/21 01/20/21 01/20/21 07:00 07:25 07:28 10:05 Temp 36.3 Pulse 80 85 Resp 22 B/P (MAP) 125/60 (81) Pulse Ox 95 95 95 O2 Delivery Nasal Cannula Nasal Cannula Nasal Cannula O2 Flow Rate 2.00 2.00 2.00 01/19/21 23:59 Intake Total 1960 ml Output Total 1780 ml Balance 180 ml Weight (Pounds): 205 Weight (Ounces): 8.0 Constitutional: AAO x 3, well-developed, well-nourished Respiratory: No accessory muscle use; other (prolonged exp, scattered exp wheezes, diminished bs at L base) Cardiovascular: regular rate-rhythm, S1 and S2, systolic murmur (soft CRISTIANO at card base) Gastrointestional: No tender; soft; No guarding, No rebound; audible bowel sounds Extremities: No clubbing, No cyanosis, No significant edema Neurologic/Psychiatric: oriented x 3, other (moves all limbs equally) Skin: normal color, warm/dry; No rash on exposed areas, No ulcerations on exposed areas Results/Procedures: Labs Laboratory Tests 01/20/21 04:35: Sodium Level 135, Potassium Level 6.2H, Chloride Level 108H, Carbon Dioxide Level 19L, Anion Gap 8, Blood Urea Nitrogen 47H, Creatinine 1.70H, Estimat Glomerular Filtration Rate 29, BUN/Creatinine Ratio 28, Glucose Level 164H, Calcium Level 8.3L, Corrected Calcium 9.2, Total Bilirubin 0.5, Aspartate Amino Transf (AST/SGOT) 17, Alanine Aminotransferase (ALT/SGPT) 48, Alkaline Phosphatase 69, Total Protein 4.6L, Albumin 2.9L Microbiology 8/27/21 Gram Stain - Final, Complete 01/14/21 Body Fluid Culture - Final, Complete No growth 01/12/21 Blood Culture - Final, Complete No growth Laboratory Tests 01/19/21 05:07 01/20/21 04:35 A/P: Assessment: Hyperkalemia of undetermined etiology Large, parapneumonic, left-sided effusion, s/p thoracentesis COPD due to chronic smoking of cigarettes (continues to smoke) Probable component of acute HFpEF (as indicated by thoracic radiologic studies during this admission) Obesity (BMI 37) and besity-hypovent with RALF, treated with CPAP Pulm hypertension, likely due to obesity-hypoventilation and RALF, 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 Mod PASP approx 64 mmHg CKD 3 - managed the [facility] and by her configuration management architect Hypertension, by history Hyperlipidemia, by history Chronic tobacco use (approx 40 pack-years) that she quit in mid-Feb 2019 Ventral abdominal hernia Carotid arterial disease. - S/p R CEA in [place], [place]. Pt does not recall surgeon or year of surgery. - Carotid u/s of September 18, 2019 showed mild bilat dz Plan: * Treat hyperkalemia (monitored by the Med S[facility]) * Diuretics as needed and as tolerated to treat fluid overload / diastolic CHF * Advised to quit smoking immediately and completely KARINE ALEXIS MD FACP [facility] CCDS Jan 20, 2021 10:48
[2021-01-20] MEDS ORDERED: SOD POLYSTERENE 15 GM/60 ML (KAYEXALATE) UNIT DOSE PR NR (11:00)
[2021-01-20] MEDS ORDERED: SOD POLYSTYRENE 30 GM/120 ML (KAYEXALATE) BULK BOTTLE PR ONE (11:00)
--- NOTE | 2021-01-20 11:33 | Occupational Ther Daily Note ---
OT Current Status-Daily Note Subjective Pt. alert in room recliner. Nrsg. in room pt. requesting to use restroom. Nursing reported Pt. SBA for ambulation and left pt. in care of OT. Mental Status/Objective Patient Orientation: Person, Place, Time, Situation Attachments: IV, Oxygen ADL-Treatment Pt. ambulated to bathroom using FWW. Performed toileting hygiene independently. Ambulated back to recliner using FWW. Reminders to watch for O2 tubing with ambulation. Using figure 4 tech, pt able to don/doff B socks. Therapy Code Descriptions/Definitions Functional [place] Measure: 0=Not Assessed/NA 4=Minimal Assistance 1=Total Assistance 5=Supervision or Setup 2=Maximal Assistance 6=Modified [place] 3=Moderate Assistance 7=Complete IndependenceSCALE: Activities may be completed with or without assistive devices. 2-Vpjgngvpfn-knjvkmh completes the activity by him/herself with no assistance from a helper. 5-Set-up or Clean-up Assistance-helper sets up or cleans up; patient completes activity. [place] assists only prior to or following the activity. 4-Supervision or Touching Assistance-helper provides verbal cues and/or touching/steadying and/or contact guard assistance as patient completes activity. Assistance may be provided throughout the activity or intermittently. 3-Partial/Moderate Assistance-helper does LESS THAN HALF the effort. [place] lifts, holds or supports trunk or limbs, but provides less than half the effort. 2-Substantial/Maximal Assistance-helper does MORE THAN HALF the effort. [place] lifts or holds trunk or limbs and provides more than half the effort. 8-Emojbopye-yjuogl does ALL the effort. Patient does none of the effort to complete the activity. Or, the assistance of 2 or more helpers is required for the patient to complete the activity. If activity was not attempted, code reason: 7-Patient Refused. 9-Not Applicable-not attempted and the patient did not perform the activity before the current illness, exacerbation or injury. 10-Not Attempted due to Environmental Limitations-(lack of equipment, weather restraints, etc.). 88-Not Attempted due to Medical Conditions or Safety Concerns. On/Off Footwear: 6 Toileting Hygiene (QC): 6 Toilet Transfer (QC): 6 Other Treatment Skilled instruction on B UE Ex's using medium resistance theraband with correct tech. Pt. participated in shoulder flex diagonal abd/add, shldr int/ext rotation, shoulder horizontal abd/add, elbow flex/ext., tricep forward flex/ext B UE 10x's each 1 set. Pt required recovery break between each set due to SOA. Pt. in recliner, call light/phone in reach. All needs met in room. Education Teaching Methods: Demonstration, Discussion Response to Teaching: Verbalize Understanding, Return Demonstration OT Short Term Goals Short Term Goals Eatin Oral hygiene: 6 Toileting hygiene: 4 Shower/bathe self: 4 Upper body dressin Lower body dressin Putting on/taking off footwear: 4 OT Prison Goals Prison Goals Eating (QC): 6 Oral Hygiene (QC): 6 Toileting Hygiene (QC): 4 Shower/Bathe Self (QC): 4 Upper Body Dressing (QC): 4 Lower Body Dressing (QC): 4 On/Off Footwear (QC): 4 1=Demonstrate adherence to instructed precautions during ADL tasks. 2=Patient will verbalize/demonstrate understanding of assistive devices/modifications for ADL. 3=Patient will improve strength/tolerance for activity to enable patient to perform ADL's. OT Education/Plan Discharge Recommendations Plan/Recommendations: Continue POC Treatment Plan/Plan of Care Patient would benefit from OT for education, treatment and training to promote independence in ADL's, mobility, safety and/or upper extremity function for ADL's. Plan of Care: ADL Retraining, Functional Mobility, UE Funct Exercise/Act Treatment Duration: Jan 21, 2021 Frequency: 5 times per week Estimated Hrs Per Day: .25 hour per day Agreement: Yes Rehab Potential: Fair Time/GCodes Start Time: 10:55 Stop Time: 11:18 Total Time Billed (hr/min): 23 Billed Treatment Time 1 visit- 1 Ex (13 min), 1 ADL (10 min) BREANNA TORRES Jan 20, 2021 11:33
[2021-01-20] MEDS: ENOXAPARIN 30 MG/0.3 ML (LOVENOX) SYR SC SCH (17:15)
--- NOTE | 2021-01-20 20:28 | Progress Note ---
Subjective Subjective/Events-last exam Patient states that she is feeling better today. Walked the halls this AM and felt better but still unsteady on her feet. Using walker. Tolerating PO diet. Review of Systems Pulmonary: Dyspnea Cardiovascular: No: Chest Pain, Palpitations Gastrointestinal: No: Nausea, Vomiting, Abdominal Pain Neurological: Weakness, Incoordination Focused Exam Time of Focused Exam: 08:15 Objective Exam Last Set of Vital Signs Vital Signs Date Time Temp Pulse Resp B/P (MAP) Pulse Ox O2 Delivery O2 Flow Rate FiO2 01/20/21 20:17 98 Nasal Cannula 2.00 01/20/21 19:58 36.5 83 20 147/75 (99) 01/20/21 19:18 24 Capillary Refill : Less Than 3 Seconds I&O Intake and Output 01/20/21 00:00 Intake Total 2160 ml Output Total 2080 ml Balance 80 ml Intake Oral 2160 ml Output Urine Total 2080 ml # Voids 1 # Bowel Movements 2 General: Alert, Oriented X3, No Acute Distress HEENT: Mucous Memb Moist/[place] Lungs: Clear to Auscultation, Normal Air Movement Heart: Regular Rate, No Murmurs Abdomen: Normal Bowel Sounds, Soft, No Tenderness, No Masses Extremities: No Tenderness/Swelling, Other (2+ pitting edema equal bilaterally) Neuro: Normal Speech, Sensation Intact Results/Procedures Lab Laboratory Tests 01/20/21 04:35: Sodium Level 135, Potassium Level 6.2H, Chloride Level 108H, Carbon Dioxide Level 19L, Anion Gap 8, Blood Urea Nitrogen 47H, Creatinine 1.70H, Estimat Glomerular Filtration Rate 29, BUN/Creatinine Ratio 28, Glucose Level 164H, Calcium Level 8.3L, Corrected Calcium 9.2, Total Bilirubin 0.5, Aspartate Amino Transf (AST/SGOT) 17, Alanine Aminotransferase (ALT/SGPT) 48, Alkaline Phosphatase 69, Total Protein 4.6L, Albumin 2.9L Microbiology 01/14/21 Gram Stain - Final, Complete 01/14/21 Body Fluid Culture - Final, Complete No growth 01/12/21 Blood Culture - Final, Complete No growth Assessment/Plan Assessment/Plan (1) Acute and chronic respiratory failure with hypoxia Status: Acute Assessment & Plan: 01/17: Pleural effusion with PNA, Will continue to titrate oxygen as tolerated, will order PT 01/18: Pneumo resolved, chest tube clamped, awaiting surgery for possible removal today 01/19: Improving, will continue to titrate as tolerated, will do home oxygen study tomorrow, crackles still present, will give 1 dose of lasix 01/20: Better today, home oxygen study in the AM (2) Pleural effusion Status: Acute Assessment & Plan: 01/17: Chest tube in Place, Dr Layton managing (3) COPD exacerbation Status: Acute Assessment & Plan: 01/17: Continue to titrate steroids (4) Pneumothorax, left Status: Resolved (5) Renal failure (ARF), acute on chronic Status: Acute Assessment & Plan: 01/17: Cr stablizing, continue to hold lasix, Gentle hydration 01/18: Cr trending down, Avoid renal medications, No NSAIDS, encourage PO hydration 01/19: Trending down, continue to monitor, No NSAIDs 01/20: Improving Qualifiers: (6) Diastolic CHF, acute on chronic Status: Acute Assessment & Plan: 01/17: Cardiology consulted, appreciate recommendations (7) HTN (hypertension) Status: Chronic (8) HLD (hyperlipidemia) Status: Chronic (9) Tobacco abuse Status: Chronic Assessment & Plan: - Discussed cessation (10) Hyperkalemia Status: Acute Assessment & Plan: 01/20: Kexalate given today, Repeat BMP this afternoon (11) DVT prophylaxis Status: Acute Assessment & Plan: - Lovenox (12) Physical debility Status: Acute Assessment & Plan: 01/18: PT to evaluate, SNF vs HH PT, looking for discharge /Friday 01/19: Plan to d/c home with HH, will need script for VIKY Witt MD Jan 20, 2021 20:28
[2021-01-20 22:29] LABS: POTASSIUM 4.5 MMOL/L (3.6-5.0)
[2021-01-20 22:30] LABS: CALCIUM 8.1 MG/DL (8.5-10.1)
[2021-01-20 22:34] LABS: CREATININE SERUM 1.76 MG/DL (0.60-1.30)
[2021-01-21 04:00] VITALS: BP 112/54
[2021-01-21 05:14] LABS: BASOPHILS % (AUTO) 0 % (0-10); EOSINOPHILS % (AUTO) 0 % (0-10); HEMATOCRIT 38 % (35-52); HEMOGLOBIN 11.8 g/dL (11.5-16.0); LYMPHOCYTES # (AUTO) 1.3 10^3/uL (1.0-4.0); LYMPHOCYTES % (AUTO) 17 % (12-44); MEAN CORPUSCULAR HEMOGLOBIN 29 pg (25-34); MEAN CORPUSCULAR HGB CONC 31 g/dL (32-36); MEAN CORPUSCULAR VOLUME 94 fL (80-99); MEAN PLATELET VOLUME 10.2 fL (9.0-12.2); MONOCYTES # (AUTO) 0.4 10^3/uL (0.0-1.0); MONOCYTES % (AUTO) 6 % (0-12); NEUTROPHILS # (AUTO) 5.8 10^3/uL (1.8-7.8); NEUTROPHILS % (AUTO) 74 % (42-75); PLATELET COUNT 136 10^3/uL (130-400); WHITE BLOOD COUNT 7.8 10^3/uL (4.3-11.0)
[2021-01-21] MEDS: predniSONE 20 MG TAB PO SCH (05:22)
[2021-01-21] MEDS: CATHETER FLUSH 10 ML SYR IV SCH ×2 (05:22→14:16)
[2021-01-21 05:23] LABS: ALBUMIN 2.8 GM/DL (3.2-4.5); POTASSIUM 4.4 MMOL/L (3.6-5.0)
[2021-01-21 05:24] LABS: CALCIUM 8.1 MG/DL (8.5-10.1)
[2021-01-21 05:26] LABS: TOTAL PROTEIN 4.4 GM/DL (6.4-8.2)
[2021-01-21 05:27] LABS: BILIRUBIN,TOTAL 0.5 MG/DL (0.1-1.0)
[2021-01-21 05:29] LABS: CREATININE SERUM 1.68 MG/DL (0.60-1.30)
[2021-01-21 07:19] VITALS: BP 127/58
[2021-01-21] MEDS: RT-ALBUTEROL SULF 2.5 MG/3 ML PRE-MIX VIAL INH SCH (09:03)
--- NOTE | 2021-01-21 10:12 | Physical Therapy Daily Note ---
PT Daily Note-Current Subjective Patient agrees to PT. Mental Status Patient Orientation: Normal For Age Attachments: Oxygen Transfers SCALE: Activities may be completed with or without assistive devices. 7-Bwsxsvffar-pvsgpnf completes the activity by him/herself with no assistance from a helper. 5-Set-up or Clean-up Assistance-helper sets up or cleans up; patient completes activity. [place] assists only prior to or following the activity. 4-Supervision or Touching Assistance-helper provides verbal cues and/or touching/steadying and/or contact guard assistance as patient completes activity. Assistance may be provided throughout the activity or intermittently. 3-Partial/Moderate Assistance-helper does LESS THAN HALF the effort. [place] lifts, holds or supports trunk or limbs, but provides less than half the effort. 2-Substantial/Maximal Assistance-helper does MORE THAN HALF the effort. [place] lifts or holds trunk or limbs and provides more than half the effort. 7-Higtklhqk-bahqll does ALL the effort. Patient does none of the effort to complete the activity. Or, the assistance of 2 or more helpers is required for the patient to complete the activity. If activity was not attempted, code reason: 7-Patient Refused. 9-Not Applicable-not attempted and the patient did not perform the activity before the current illness, exacerbation or injury. 10-Not Attempted due to Environmental Limitations-(lack of equipment, weather restraints, etc.). 88-Not Attempted due to Medical Conditions or Safety Concerns. Lying to Sitting/Side of Bed(Q: 6 Sit to Stand (QC): 6 Chair/Dup-xo-Npyly Xfer(QC): 6 Weight Bearing Full Weight Bearing Full Weight Bearing Gait Training Does the Patient Walk?: Yes Distance: 350' Walk 10 feet (QC): 6 Walk 50 ft with 2 Turns(QC): 6 Walk 150 ft (QC): 6 Gait Assistive Device: FWW safe and functional with no deviation Treatments RT removed O2 prior to PT. Patient's SAO2 at rest per RT was 96%. PT entered room with SAO2 on RA 90%. Patient ambulated with FWW with decrease SAO2 to 86% with recovery on 2L to 94%. Assessment Current Status: Excellent Progress PT Half-Way Goals Half-Way Goals PT Senior Systems Programmer Goals Time Frame: Jan 29, 2021 Roll Left & Right (QC): 6 Sit to Lying (QC): 6 Lying-Sitting on Side/Bed(QC): 6 Sit to Stand (QC): 6 Chair/[place] Xfer(QC): 6 Toilet Transfer (QC): 6 Walk 10 feet (QC): 6 Walk 50ft with 2 Turns (QC): 6 Walk 150 ft (QC): 6 PT Plan Treatment/Plan Treatment Plan: Discontinue PT, goals met Treatment Plan: Bed Mobility, Education, Functional Activity [place], Functional Strength, Gait, Safety, Therapeutic Exercise, Transfers Treatment Duration: Jan 29, 2021 Frequency: 6 times per week Estimated Hrs Per Day: .25 hour per day Patient and/or Family Agrees t: Yes Time/GCodes Time In: 801 Time Out: 813 Total Billed Treatment Time: 12 Total Billed Treatment 1 visit FA 12 min SHERRI HERMOSILLO PT Jan 21, 2021 10:12
[2021-01-21 11:35] VITALS: BP_SYST 136; BP_SYST 154; BP_DIAS 65; BP_DIAS 69
--- NOTE | 2021-01-21 12:01 | Occupational Ther Daily Note ---
OT Current Status-Daily Note Subjective Pt. alert in bed. Agrees to therapy. came in and spoke with Pt. about plans for discharge today Mental Status/Objective Patient Orientation: Person, Place, Time, Situation Attachments: Oxygen ADL-Treatment Pt. agreed to sponge bath. Pt. independent supine to sit. Pt. ambulated with FWW independently from bed to chair at bathroom sink with safety concerns due to awareness of O2 tubing. Pt. independently cleansed self seated at sink. Pt. performed oral care independently. Pt. donned underwear and hospital gown independently, declined doffing footwear to clean feet(Pt. demonstrated independence with footwear during last OT session). Pt. ambulated independently with FWW from bathroom to recliner in room. Pt. has call light/phone in reach. All needs met in room. Therapy Code Descriptions/Definitions Functional [place] Measure: 0=Not Assessed/NA 4=Minimal Assistance 1=Total Assistance 5=Supervision or Setup 2=Maximal Assistance 6=Modified [place] 3=Moderate Assistance 7=Complete IndependenceSCALE: Activities may be completed with or without assistive devices. 7-Jxzjlzcwod-uvekufn completes the activity by him/herself with no assistance from a helper. 5-Set-up or Clean-up Assistance-helper sets up or cleans up; patient completes activity. [place] assists only prior to or following the activity. 4-Supervision or Touching Assistance-helper provides verbal cues and/or touching/steadying and/or contact guard assistance as patient completes activity. Assistance may be provided throughout the activity or intermittently. 3-Partial/Moderate Assistance-helper does LESS THAN HALF the effort. [place] lifts, holds or supports trunk or limbs, but provides less than half the effort. 2-Substantial/Maximal Assistance-helper does MORE THAN HALF the effort. [place] lifts or holds trunk or limbs and provides more than half the effort. 9-Dgosvphkl-emzsst does ALL the effort. Patient does none of the effort to complete the activity. Or, the assistance of 2 or more helpers is required for the patient to complete the activity. If activity was not attempted, code reason: 7-Patient Refused. 9-Not Applicable-not attempted and the patient did not perform the activity before the current illness, exacerbation or injury. 10-Not Attempted due to Environmental Limitations-(lack of equipment, weather restraints, etc.). 88-Not Attempted due to Medical Conditions or Safety Concerns. OT Short Term Goals Short Term Goals Eatin Oral hygiene: 6 Toileting hygiene: 4 Shower/bathe self: 4 Upper body dressin Lower body dressin Putting on/taking off footwear: 4 OT Skilled Nursing Goals Assembler Equipment Goals Eating (QC): 6 Oral Hygiene (QC): 6 Toileting Hygiene (QC): 4 Shower/Bathe Self (QC): 4 Upper Body Dressing (QC): 4 Lower Body Dressing (QC): 4 On/Off Footwear (QC): 4 1=Demonstrate adherence to instructed precautions during ADL tasks. 2=Patient will verbalize/demonstrate understanding of assistive devices/modifications for ADL. 3=Patient will improve strength/tolerance for activity to enable patient to perform ADL's. OT Education/Plan Discharge Recommendations Plan/Recommendations: Discharge/Goals Met (Pt. met goals and physician to discharge today.) Comment . Treatment Plan/Plan of Care Patient would benefit from OT for education, treatment and training to promote independence in ADL's, mobility, safety and/or upper extremity function for ADL's. Plan of Care: ADL Retraining, Functional Mobility, UE Funct Exercise/Act Treatment Duration: Jan 21, 2021 Frequency: 5 times per week Estimated Hrs Per Day: .25 hour per day Agreement: Yes Rehab Potential: Fair Time/GCodes Start Time: 11:20 Stop Time: 11:49 Total Time Billed (hr/min): 29 Billed Treatment Time 1 visit- ADL 2 (29 min) BREANNA TORRES Jan 21, 2021 12:01
--- NOTE | 2021-01-21 13:07 | Discharge Summary ---
VIKY CHEATHAM MD 01/21/21 1307: Diagnosis/Chief Complaint Date of Admission Jan 12, 2021 at 17:35 Date of Discharge Discharge Diagnosis Problems/Diagnosis: (1) Acute and chronic respiratory failure with hypoxia Assessment & Plan: 01/17: Pleural effusion with PNA, Will continue to titrate oxygen as tolerated, will order PT 01/18: Pneumo resolved, chest tube clamped, awaiting surgery for possible removal today 01/19: Improving, will continue to titrate as tolerated, will do home oxygen study tomorrow, crackles still present, will give 1 dose of lasix 01/20: Better today, home oxygen study in the AM Status: Acute (2) Pleural effusion Assessment & Plan: 01/17: Chest tube in Place, Dr Layton managing Status: Acute (3) COPD exacerbation Assessment & Plan: 01/17: Continue to titrate steroids Status: Acute (4) Pneumothorax, left Status: Resolved Resolution Date/Time: 01/18/21 @ 22:17 (5) Renal failure (ARF), acute on chronic Assessment & Plan: 01/17: Cr stablizing, continue to hold lasix, Gentle hydration 01/18: Cr trending down, Avoid renal medications, No NSAIDS, encourage PO hydration 01/19: Trending down, continue to monitor, No NSAIDs 01/20: Improving Qualifiers: Status: Acute (6) Diastolic CHF, acute on chronic Assessment & Plan: 01/17: Cardiology consulted, appreciate recommendations Status: Acute (7) HTN (hypertension) Status: Chronic (8) HLD (hyperlipidemia) Status: Chronic (9) Tobacco abuse Assessment & Plan: - Discussed cessation Status: Chronic (10) Hyperkalemia Assessment & Plan: 01/20: Kexalate given today, Repeat BMP this afternoon Status: Acute (11) DVT prophylaxis Assessment & Plan: - Lovenox Status: Acute (12) Physical debility Assessment & Plan: 01/18: PT to evaluate, SNF vs HH PT, looking for discharge /Friday 01/19: Plan to d/c home with HH, will need script for walker Status: Acute Discharge Summary-Simple/Stand Consultations Discharge Physical Examination Allergies: Coded Allergies: No Known Drug Allergies (Unverified , 03/20/19) Vitals & I&Os Vital Sign - Last 12Hours Date Time Temp Pulse Resp B/P (MAP) Pulse Ox O2 Delivery O2 Flow Rate FiO2 01/21/21 12:55 73 01/21/21 11:35 36.2 20 136/69 (91) 95 Nasal Cannula 2.00 01/20/21 19:18 24 Intake and Output 01/21/21 00:00 Intake Total 690 ml Balance 690 ml Hospital Course See final discharge diagnosis. Discharge Instructions to patient/family Please see electronic discharge instructions given to patient. Discharge Medications Reviewed and agree with Discharge Medication list on patient's Discharge Inst ruction sheet IZZY RENE 01/21/21 1441: Discharge Summary-Simple/Stand Discharge Physical Examination Allergies: Coded Allergies: No Known Drug Allergies (Unverified , 03/20/19) VIKY CHEATHAM MD Jan 21, 2021 13:07 IZZY RENE Jan 21, 2021 14:41
[2021-01-21] MEDS ORDERED: PRD20T PO (13:12)
--- NOTE | 2021-01-21 13:26 | Discharge Summary ---
Discharge [facility] Reconcile Patient Problems Problems Reviewed?: Yes Discharge Medications New, Converted or Re-Newed RX: Transmitted to Pharmacy New Medications: Prednisone (Prednisone) 20 Mg Tab 20 MG PO DAILY, #13 TAB Take 3 tabs x 2 days then take 2 tabs x 2 days then take 1 tab x 2 days then 1/2 tab x 4 days Continued Medications: Allopurinol (Allopurinol) 100 Mg Tablet 50 MG PO DAILY, TAB TAKES OF A 100MG TAB Atorvastatin Calcium (Atorvastatin Calcium) 80 Mg Tablet 80 MG PO HS, TAB Clonazepam (Clonazepam) 0.5 Mg Tablet 0.5 MG PO HS, TAB Diltiazem HCl (Diltiazem 24Hr ER) 300 Mg Cap.er.24h 300 MG PO HS, CAP Fluticasone/Salmeterol (Advair 250-50 Diskus) 1 Each Blst.w.dev 1 EACH IH BID Furosemide (Furosemide) 40 Mg Tablet 40 MG PO DAILY, TAB Loratadine (Loratadine) 10 Mg Tablet 10 MG PO DAILY, TAB Nebivolol HCl (Bystolic) 10 Mg Tab 10 MG PO HS, TAB Discontinued Medications: Irbesartan (Irbesartan) 300 Mg Tablet 300 MG PO DAILY, TAB Sulfamethoxazole/Trimethoprim (Bactrim Ds Tablet) 1 Each Tablet 1 EA PO BID, TAB FILLED 01-10-2021 #6/3 DAY SUPPLY Patient Instructions Goal/Follow Up Appt: F/u 1 week with PCP Activity & Diet Discharge Diet: Cardiac Diet Activity as Tolerated: Yes Copy Copies To 1: SELF,VIKY ESCOBEDO MD, MD Jan 21, 2021 13:18
--- NOTE | 2021-01-21 13:39 | Discharge Summary ---
Discharge Summary Reconcile Patient Problems Problems Reviewed?: Yes Instructions for Patient Via [employer], Assessment/Instructions Acute on Chronic Respiratory Failure Pneumothorax, Resolved Pleural Effusion Acute on Chronic Renal Failure Debility Advanced age Physician to follow Patient: Self Discharge Diet for Home: Cardiac Diet Hospital Course Date of Admission: Jan 12, 2021 at 17:35 Admission Diagnosis : Family Physician/Provider: Bethany Cuadra Aprn Date of Discharge: 01/21/21 Discharge Diagnosis: Acute on chronic Respiratory failure Pneumothorax Pleural Effusion Acute on Chronic Renal Failure Hospital Course: 80 yo F that presented with respiratory failure and was found to have pneumthorax and chest tube was placed. Patient also had Pleural effusion that stablized during admission. Patient was seen by Surgery and Cardiology. she was in acute CHF and received IV lasix which bumped up her Cr. Patient's oxygen requirement trended down but she has a new home oxygen requirement. Labs and Pending Lab Test: Laboratory Tests 01/20/21 22:10: Sodium Level 135, Potassium Level 4.5, Chloride Level 103, Carbon Dioxide Level 22, Anion Gap 10, Blood Urea Nitrogen 44H, Creatinine 1.76H, Estimat Glomerular Filtration Rate 28, BUN/Creatinine Ratio 25, Glucose Level 110H, Calcium Level 8.1L 01/21/21 04:45: Sodium Level 137, Potassium Level 4.4, Chloride Level 105, Carbon Dioxide Level 23, Anion Gap 9, Blood Urea Nitrogen 44H, Creatinine 1.68H, Estimat Glomerular Filtration Rate 29, BUN/Creatinine Ratio 26, Glucose Level 74, Calcium Level 8.1L, White Blood Count 7.8, Red Blood Count 4.01, Hemoglobin 11.8, Hematocrit 38, Mean Corpuscular Volume 94, Mean Corpuscular Hemoglobin 29, Mean Corpuscular Hemoglobin Concent 31L, Red Cell Distribution Width 14.6H, Platelet Count 136, Mean Platelet Volume 10.2, Immature Granulocyte % (Auto) 3, Neutrophils (%) (Auto) 74, Lymphocytes (%) (Auto) 17, Monocytes (%) (Auto) 6, Eosinophils (%) (Auto) 0, Basophils (%) (Auto) 0, Neutrophils # (Auto) 5.8, Lymphocytes # (Auto) 1.3, Monocytes # (Auto) 0.4, Eosinophils # (Auto) 0.0, Basophils # (Auto) 0.0, Immature Granulocyte # (Auto) 0.2H, Corrected Calcium 9.1, Total Bilirubin 0.5, Aspartate Amino Transf (AST/SGOT) 22, Alanine Aminotransferase (ALT/SGPT) 55, Alkaline Phosphatase 70, Total Protein 4.4L, Albumin 2.8L Microbiology 01/14/21 Gram Stain - Final, Complete 01/14/21 Body Fluid Culture - Final, Complete No growth 01/12/21 Blood Culture - Final, Complete No growth Home Meds Active Prednisone 20 Mg Tab 20 Mg PO DAILY Take 3 tabs x 2 days then take 2 tabs x 2 days then take 1 tab x 2 days then 1/2 tab x 4 days Reported Advair 250-50 Diskus (Fluticasone/Salmeterol) 1 Each Blst.w.dev 1 Each IH BID Diltiazem 24Hr ER (Diltiazem HCl) 300 Mg Cap.er.24h 300 Mg PO HS Bactrim Ds Tablet (Sulfamethoxazole/Trimethoprim) 1 Each Tablet 1 Ea PO BID FILLED 01-10-2021 #6/3 DAY SUPPLY Loratadine 10 Mg Tablet 10 Mg PO DAILY Bystolic (Nebivolol HCl) 10 Mg Tab 10 Mg PO HS Clonazepam 0.5 Mg Tablet 0.5 Mg PO HS Allopurinol 100 Mg Tablet 50 Mg PO DAILY TAKES OF A 100MG TAB Atorvastatin Calcium 80 Mg Tablet 80 Mg PO HS Furosemide 40 Mg Tablet 40 Mg PO DAILY Irbesartan 300 Mg Tablet 300 Mg PO DAILY Patient Allergies: Coded Allergies: No Known Drug Allergies (Unverified , 03/20/19) Weight (Pounds): 205 Weight (Ounces): 8.0 New Medications: Prednisone (Prednisone) 20 Mg Tab 20 MG PO DAILY, #13 TAB Take 3 tabs x 2 days then take 2 tabs x 2 days then take 1 tab x 2 days then 1/2 tab x 4 days Continued Medications: Allopurinol (Allopurinol) 100 Mg Tablet 50 MG PO DAILY, TAB TAKES OF A 100MG TAB Atorvastatin Calcium (Atorvastatin Calcium) 80 Mg Tablet 80 MG PO HS, TAB Clonazepam (Clonazepam) 0.5 Mg Tablet 0.5 MG PO HS, TAB Diltiazem HCl (Diltiazem 24Hr ER) 300 Mg Cap.er.24h 300 MG PO HS, CAP Fluticasone/Salmeterol (Advair 250-50 Diskus) 1 Each Blst.w.dev 1 EACH IH BID Furosemide (Furosemide) 40 Mg Tablet 40 MG PO DAILY, TAB Loratadine (Loratadine) 10 Mg Tablet 10 MG PO DAILY, TAB Nebivolol HCl (Bystolic) 10 Mg Tab 10 MG PO HS, TAB Discontinued Medications: Irbesartan (Irbesartan) 300 Mg Tablet 300 MG PO DAILY, TAB Sulfamethoxazole/Trimethoprim (Bactrim Ds Tablet) 1 Each Tablet 1 EA PO BID, TAB FILLED 01-10-2021 #6/3 DAY SUPPLY Home Health Need/Face to Face Date of Face to Face: Jan 21, 2021 Clinical Findings: Instability, Shortness of breath, Unsteady gait I have seen Pt [id number]: Yes Discharged To: Home Diagnosis/Conditions: See above Patient is Homebound due to: [place]ip[place] fall risk due to instabilty, Muscle weakness Homebound Status Due to the above stated illness, injury or surgical procedure (medical condition or diagnosis) and associated clinical findings, the patient is homebound because of his/her inability to leave home except with aid of a supportive device and/or person AND leaving the home requires a considerable and taxing effort or is medically contraindicated. Pt req the following assistanc: Walker Home Health Nursing Orders Home Health Services Order: Nursing Services, Sweeper Operator Highways-Evaluate & Treat, Physical Therapy-Evaluate & Treat, Wound Care-Eval/Treat Home Health Infusion Therapy Line Start Date: Jan 15, 2021 Certify Stmt I certify that this patient is under my care and that I, a nurse practitioner or a physician; a human resources office assistant working with me, had a face to face encounter that - meets the physician face to face encounter requirements with this patient as dated. Discharge Physical Exam General: Alert, Oriented X3 Lungs: Other (Normal work of breath at rest) Heart: Regular Rate, No Murmurs Abdomen: Normal Bowel Sounds, Soft, No Tenderness, No Masses Extremities: Other (1+ pitting edema) Skin: Other (Chest tube wound healing well) VIKY CHEATHAM MD Jan 21, 2021 13:38
[2021-01-21 17:10] VITALS: BP 136/69
== END 2021-01-21 17:10 | disposition home health service (06) | DRG 199 ==
LOC: EDUNIT# 15:23 → ER 15:26 → 4TH 17:35
PROVIDERS: ADMIT Internal Medicine; ATTEND Family Medicine
PROC: 0W9B3ZZ Drainage of Left Pleural Cavity, Percutaneous Approach (ICD-10-PCS; principal; 2021-01-13)
PROC: 0W9B30Z Drainage of Left Pleural Cavity with Drainage Device, Percutaneous Approach (ICD-10-PCS; 2021-01-14)
PROC: 5A09357 Assistance with Respiratory Ventilation, Less than 24 Consecutive Hours, Continuous Positive Airway Pressure (ICD-10-PCS; 2021-01-17)
DX: J93.9 Pneumothorax, unspecified (principal); J96.21 Acute and chronic respiratory failure with hypoxia; I50.33 Acute on chronic diastolic (congestive) heart failure; J18.9 Pneumonia, unspecified organism; J90 Pleural effusion, not elsewhere classified; N17.9 Acute kidney failure, unspecified; J44.1 Chronic obstructive pulmonary disease with (acute) exacerbation; I13.0 Hypertensive heart and chronic kidney disease with heart failure and stage 1 through stage 4 chronic kidney disease, or unspecified chronic kidney disease; J44.0 Chronic obstructive pulmonary disease with (acute) lower respiratory infection; K43.0 Incisional hernia with obstruction, without gangrene; E66.2 Morbid (severe) obesity with alveolar hypoventilation; Z95.5 Presence of coronary angioplasty implant and graft; J44.9 Chronic obstructive pulmonary disease, unspecified; I25.10 Atherosclerotic heart disease of native coronary artery without angina pectoris; I25.2 Old myocardial infarction; G62.9 Polyneuropathy, unspecified; Z86.73 Personal history of transient ischemic attack (TIA), and cerebral infarction without residual deficits; M10.9 Gout, unspecified; F41.9 Anxiety disorder, unspecified; F17.210 Nicotine dependence, cigarettes, uncomplicated; R53.81 Other malaise; E78.5 Hyperlipidemia, unspecified; E87.5 Hyperkalemia; K42.9 Umbilical hernia without obstruction or gangrene; D72.829 Elevated white blood cell count, unspecified; I27.21 Secondary pulmonary arterial hypertension; Z68.37 Body mass index [BMI] 37.0-37.9, adult; N18.30 Chronic kidney disease, stage 3 unspecified; I65.23 Occlusion and stenosis of bilateral carotid arteries; Z79.899 Other long term (current) drug therapy
CPT/HCPCS: 36415; 71045; 71046; 80048; 80053; 82805; 82945; 82947; 83605; 83880; 83986; 84145; 84157; 85007; 85025; 85027; 85610; 85730; 87040; 87070; 87205; 89051; 94640; 94664; 94760; 94761; 96374; 96375

== ENCOUNTER → 2021-01-12 | Outpatient (CLI) | payer MEDICARE, OTHER ==
--- NOTE | 2021-01-12 14:58 | Diagnostic Imaging Report ---
Indication: Suspected pulmonary embolism. Patient was administered 4.9 mCi technetium 99m MAA intravenously and imaging over the chest was performed in multiple obliquities. Correlation is made with the chest radiograph performed earlier same day. There is homogeneous perfusion to the right lung. There appears to be some generalized decreased perfusion to the left lung. No definite wedge-shaped defect is seen. In correlating with the patient's chest x-ray the patient appears to have consolidation in the mid and lower lung field as well as a moderate to large left pleural effusion. IMPRESSION: There is perfusion asymmetry being generally reduced on the left side compared to the right but no definite moderate to large pleural-based perfusion defects are seen. Patient does have an airspace process in the mid and lower left lung field as well as a moderate to large left pleural effusion. Dictated by: Dictated on workstation # [id number]
--- NOTE | 2021-01-12 15:16 | Diagnostic Imaging Report ---
INDICATION: Shortness of breath and hypoxia. EXAMINATION: Frontal chest was obtained at 2:05 p.m. COMPARISON: 03/31/2019. There is cardiomegaly. There is a large left pleural effusion which is new compared to the prior study. There is passive atelectasis versus infiltrate in the left base. There is central vascular congestion with some right perihilar and basilar infiltrate. There is a small amount of pleural fluid on the right side. IMPRESSION: Moderate to large left pleural effusion with small right pleural effusion. Cardiomegaly with central vascular congestion. There is some right perihilar and basilar infiltrate versus atelectasis as well as passive atelectasis in the left base. These findings represent significant worsening compared to the previous study. Dictated by: Dictated on workstation # [id number]
== END ==
LOC: CARD 13:00
PROVIDERS: ATTEND Nurse Practitioner Family
DX: Z03.89 Encounter for observation for other suspected diseases and conditions ruled out (principal); J90 Pleural effusion, not elsewhere classified; I51.7 Cardiomegaly; R91.8 Other nonspecific abnormal finding of lung field
CPT/HCPCS: 71046; 78580; A9540

== ENCOUNTER → 2021-02-21 | Outpatient (CLI) | payer MEDICARE, OTHER ==
[~2021-02-21] MED LIST changes: +DILT300C52 PO; +FLUT1DIS26 IH; +SULF1TAB38 PO
== END ==
LOC: CARD 11:30
PROVIDERS: ATTEND Internal Medicine Cardiovascular Disease
DX: I51.7 Cardiomegaly (principal); I27.20 Pulmonary hypertension, unspecified; I34.0 Nonrheumatic mitral (valve) insufficiency
CPT/HCPCS: 93306

== ENCOUNTER → 2021-03-15 | Outpatient (CLI) | payer MEDICARE, OTHER ==
[2021-03-15 15:33] LABS: CALCIUM 9.3 MG/DL (8.5-10.1); CREATININE SERUM 1.16 MG/DL (0.60-1.30); POTASSIUM 3.6 MMOL/L (3.6-5.0)
== END ==
LOC: LAB FS 13:42
PROVIDERS: ATTEND Nurse Practitioner Family
DX: J44.9 Chronic obstructive pulmonary disease, unspecified (principal)
CPT/HCPCS: 36415; 80048

== ENCOUNTER → 2021-03-22 | Outpatient (CLI) | payer MEDICARE, OTHER ==
[2021-03-22 19:00] LABS: POTASSIUM 4.1 MMOL/L (3.6-5.0)
[2021-03-22 19:01] LABS: ALBUMIN 3.7 GM/DL (3.2-4.5); CALCIUM 9.2 MG/DL (8.5-10.1); CREATININE SERUM 1.82 MG/DL (0.60-1.30)
[2021-03-22 21:40] LABS: PHOSPHORUS 3.6 MG/DL (2.3-4.7)
== END ==
LOC: LAB FS 18:15
PROVIDERS: ATTEND Internal Medicine Nephrology
DX: I13.0 Hypertensive heart and chronic kidney disease with heart failure and stage 1 through stage 4 chronic kidney disease, or unspecified chronic kidney disease (principal); N18.4 Chronic kidney disease, stage 4 (severe); I50.9 Heart failure, unspecified
CPT/HCPCS: 36415; 80069

== ENCOUNTER → 2021-03-23 | Outpatient (CLI) | payer MEDICARE, OTHER | LOC: LAB FS 11:00 | PROVIDERS: ATTEND Nurse Practitioner Family | DX: Z01.812 Encounter for preprocedural laboratory examination (principal); Z20.822 Contact with and (suspected) exposure to COVID-19 | CPT/HCPCS: 87635 ==

== ENCOUNTER → 2021-03-25 | Outpatient (CLI) | payer MEDICARE, OTHER | LOC: SLEEP 19:54 | PROVIDERS: ATTEND Nurse Practitioner Family | DX: Z01.818 Encounter for other preprocedural examination (principal); G47.33 Obstructive sleep apnea (adult) (pediatric); Z20.822 Contact with and (suspected) exposure to COVID-19 | CPT/HCPCS: 95811 ==

== ENCOUNTER → 2021-07-18 | Outpatient (CLI) | payer MEDICARE, OTHER ==
[~2021-07-18] MED LIST changes: +FLUC100T10 PO; -FLUC100T6 PO
--- NOTE | 2021-07-18 12:18 | Diagnostic Imaging Report ---
INDICATION: Shortness of breath and decreased breath sounds. TIME OF EXAM: 11:47 AM Correlation is made with prior chest radiograph from 01/15/2021. The heart is enlarged but stable. There is obscuration of the left hemidiaphragm with patchy areas of increased density consistent with pneumonia or atelectasis. There is also blunting of the left costophrenic angle consistent with a small to moderate amount of pleural fluid. Right lung appears clear. The pulmonary vascularity is unremarkable. There is no pneumothorax. IMPRESSION: Left basilar pneumonia/atelectasis as well as small left effusion. Dictated by: Dictated on workstation # [id number]
== END ==
LOC: RAD FS 11:35
PROVIDERS: ATTEND Family Medicine
DX: J90 Pleural effusion, not elsewhere classified (principal); R06.89 Other abnormalities of breathing
CPT/HCPCS: 71046

== ENCOUNTER → 2021-08-22 | Outpatient (CLI) | payer MEDICARE, OTHER ==
[2021-08-22 12:35] LABS: BASOPHILS % (AUTO) 0 % (0-10); EOSINOPHILS # (AUTO) 0.3 10^3/uL (0.0-0.3); EOSINOPHILS % (AUTO) 5 % (0-10); HEMATOCRIT 35 % (35-52); HEMOGLOBIN 10.9 g/dL (11.5-16.0); LYMPHOCYTES # (AUTO) 1.2 10^3/uL (1.0-4.0); LYMPHOCYTES % (AUTO) 16 % (12-44); MEAN CORPUSCULAR HEMOGLOBIN 26 pg (25-34); MEAN CORPUSCULAR HGB CONC 31 g/dL (32-36); MEAN CORPUSCULAR VOLUME 84 fL (80-99); MONOCYTES # (AUTO) 0.5 10^3/uL (0.0-1.0); MONOCYTES % (AUTO) 7 % (0-12); NEUTROPHILS # (AUTO) 5.3 10^3/uL (1.8-7.8); NEUTROPHILS % (AUTO) 72 % (42-75); PLATELET COUNT 224 10^3/uL (130-400); WHITE BLOOD COUNT 7.4 10^3/uL (4.3-11.0)
[2021-08-22 12:54] LABS: ALBUMIN 3.7 GM/DL (3.2-4.5); CALCIUM 9.3 MG/DL (8.5-10.1); CREATININE SERUM 1.62 MG/DL (0.60-1.30); POTASSIUM 4.1 MMOL/L (3.6-5.0)
[2021-08-22 15:19] LABS: PHOSPHORUS 3.3 MG/DL (2.3-4.7); URINE CREATININE FOR RATIO 19 MG/DL (30-125)
[2021-08-22 15:20] LABS: URINE PROTEIN FOR RATIO ONLY < 6 MG/DL (6-12)
[2021-08-22 15:22] LABS: URIC ACID 6.3 MG/DL (2.6-7.2)
== END ==
LOC: LAB FS 12:01
PROVIDERS: ATTEND Internal Medicine Nephrology
DX: N18.4 Chronic kidney disease, stage 4 (severe) (principal); R60.0 Localized edema; E21.2 Other hyperparathyroidism
CPT/HCPCS: 36415; 80069; 82306; 82570; 83970; 84156; 84550; 85025

== ENCOUNTER → 2021-10-03 | Outpatient (CLI) | payer MEDICARE, MEDICAID ==
--- NOTE | 2021-10-03 12:19 | Diagnostic Imaging Report ---
INDICATION: COPD with exacerbation. EXAMINATION: Two view chest on 10/03/2021. COMPARISON: 07/18/2021. FINDINGS: Two views of the chest demonstrate a left pleural effusion, similar to previous imaging, with underlying atelectasis versus infiltrate suspected. There is mild infiltrate at the right lung base. There are coarsened interstitial markings throughout the remaining lungs, likely chronic. The heart is stable. The pulmonary vasculature is unremarkable. No pneumothorax IMPRESSION: Stable left pleural effusion with underlying atelectasis versus infiltrate. Mild infiltrate at the right lung base is suspected. Dictated by: Dictated on workstation # [id number]
== END ==
LOC: RAD FS 10:55
PROVIDERS: ATTEND Family Medicine
DX: J44.1 Chronic obstructive pulmonary disease with (acute) exacerbation (principal); J90 Pleural effusion, not elsewhere classified; J98.11 Atelectasis
CPT/HCPCS: 71046

== ENCOUNTER → 2021-10-19 | Outpatient (CLI) | payer MEDICARE, MEDICAID ==
--- NOTE | 2021-10-19 15:14 | Diagnostic Imaging Report ---
Indication: Abdominal wall hernia. Time of Exam: 2:01 PM There are surgical clips in the gallbladder fossa. Bowel gas pattern is nonobstructed. No pathologic calcifications are seen. 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 IMPRESSION: No acute feature detected. Dictated by: Dictated on workstation # [id number]
== END ==
LOC: RAD FS 13:47
PROVIDERS: ATTEND Family Medicine
DX: K43.9 Ventral hernia without obstruction or gangrene (principal)
CPT/HCPCS: 74018

== ENCOUNTER → 2021-11-07 | Outpatient (CLI) | payer MEDICARE, MEDICAID ==
[~2021-11-07] MED LIST changes: +RT-ALBUTEROL SULF 2.5 MG/3 ML PRE-MIX VIAL INH ONE
== END ==
LOC: RT 09:23
PROVIDERS: ATTEND Internal Medicine Critical Care Medicine
DX: J44.9 Chronic obstructive pulmonary disease, unspecified (principal); N18.4 Chronic kidney disease, stage 4 (severe); E66.01 Morbid (severe) obesity due to excess calories; Z87.891 Personal history of nicotine dependence
CPT/HCPCS: 94060; 94726; 94729

== ENCOUNTER → 2022-02-13 | Outpatient (CLI) | payer MEDICARE, MEDICAID ==
[~2022-02-13] MED LIST changes: -RT-ALBUTEROL SULF 2.5 MG/3 ML PRE-MIX VIAL INH ONE
--- NOTE | 2022-02-13 13:08 | Diagnostic Imaging Report ---
INDICATION: Pleural effusion. Comparison is made with prior exam of 10/03/2021. FINDINGS: There is cardiomegaly. There are patchy bibasal infiltrates. Small bilateral pleural effusions left greater than right. No pneumothorax. The mediastinum is unremarkable. The left chest tube is in place. IMPRESSION: Bibasal infiltrates and bilateral pleural effusions left greater than right. Interval placement of a left thoracostomy tube. Cardiomegaly. Dictated by: Dictated on workstation # [id number]
== END ==
LOC: RAD FS 12:22
DX: Z12.89 Encounter for screening for malignant neoplasm of other sites (principal); J90 Pleural effusion, not elsewhere classified; I51.7 Cardiomegaly; Z97.8 Presence of other specified devices
CPT/HCPCS: 71046

== ENCOUNTER 2022-11-23 12:47 | Inpatient (IN) | payer MEDICARE, MEDICAID ==
[~2022-11-23] VITALS: Ht 160 cm; Wt 100.9 kg
[~2022-11-23 12:47] MED LIST changes: +ALBU8.5H6 IH; -RT-ALBUINH IH
--- NOTE | 2022-11-23 13:06 | ED Respiratory ---
General Chief Complaint: Respiratory Problems Stated Complaint: O2 LOW | PULMONARY ISSUES Nursing Triage Note: o2 sats "staying low" post breathing treatment. gained 4-5 lbs in the last week. brought in per dr ball nurse Source: patient, family (daughter) Exam Limitations: no limitations History of Present Illness Date Seen by Provider: Nov 23, 2022 Time Seen by Provider: 12:57 Initial Comments 82-year-old female presents via private vehicle for worsening shortness of breath. She was advised to come in by Dr. Cheatham's nurse when she mentioned that she had gained 4 to 5 pounds in the last week and her oxygen saturations were dropping despite use of her home oxygen. She is typically on 3 L via nasal cannula and they then increase this to 4 recently. Symptoms have progressively worsened since Sunday. No fevers. No change in her chronic productive cough. No chest pains. She does have a history of COPD, CHF. All other systems reviewed and negative except documented per HPI. Voice recognition software was used to help create this chart Allergies and Home Medications Allergies Coded Allergies: No Known Drug Allergies (Unverified , 03/20/19) Patient Home Medication List Home Medication List Reviewed: Yes Allopurinol (Allopurinol) 100 Mg Tablet, 50 MG PO DAILY, (Reported) Entered as Reported by: DENISSE HUERTA on 03/20/19 1315 Atorvastatin Calcium (Atorvastatin Calcium) 80 Mg Tablet, 80 MG PO HS, (Reported) Entered as Reported by: DENISSE HUERTA on 03/20/19 1315 Clonazepam (Clonazepam) 0.5 Mg Tablet, 0.5 MG PO HS, (Reported) Entered as Reported by: DENISSE HUERTA on 03/20/19 1315 Diltiazem HCl (Diltiazem 24Hr ER) 300 Mg Cap.er.24h, 300 MG PO HS, (Reported) Entered as Reported by: MATT CAMPA on 01/13/21 1359 Fluticasone/Salmeterol (Advair 250-50 Diskus) 1 Each Blst.w.dev, 1 EACH IH BID, (Reported) Entered as Reported by: MATT CAMPA on 01/13/21 1359 Furosemide (Furosemide) 40 Mg Tablet, 40 MG PO DAILY, (Reported) Entered as Reported by: DENISSE HUERTA on 03/20/19 1315 Loratadine (Loratadine) 10 Mg Tablet, 10 MG PO DAILY, (Reported) Entered as Reported by: DENISSE HUERTA on 03/20/19 1315 Nebivolol HCl (Bystolic) 10 Mg Tab, 10 MG PO HS, (Reported) Entered as Reported by: DENISSE HUERTA on 03/20/19 1315 Prednisone (Prednisone) 20 Mg Tab, 20 MG PO DAILY Prescribed by: VIKY CHEATHAM on 01/21/21 1312 Review of Systems Review of Systems Constitutional: see HPI Past Bavdqrh-Jkismn-Subcei Hx Patient Social History Tobacco Use?: Yes Tobacco type used: Cigarettes Smoking Status: Current Everyday Smoker Use of E-Cig and/or Vaping dev: No Substance use?: No Alcohol Use?: No Immunizations Up To Date First/Initial COVID19 Vaccinat: "2 shots" Second COVID19 Vaccination Beck: UNKNOWN Third COVID19 Vaccination Date: NA Seasonal Allergies Seasonal Allergies: Yes Past Medical History Surgeries: Yes Appendectomy, Coronary Stent, Gallbladder, Tonsillectomy Respiratory: Yes COPD Currently Using CPAP: No Currently Using BIPAP: No Cardiac: Yes Chronic Edema/Swelling, Coronary Artery Disease, Heart Attack, Hypertension, Irregular Heartbeat Neurological: Yes Neuropathy, Stroke Genitourinary: Yes Renal Failure Gastrointestinal: No Abdominal Hernia Musculoskeletal: Yes Gout Endocrine: No HEENT: No Cancer: No Psychosocial: Yes Anxiety Integumentary: No Physical Exam Vital Signs - First Documented 11/23/22 12:54 Temp 37.4 Pulse 93 Resp 14 B/P (MAP) 191/103 (132) Capillary Refill : Height: '" Weight: 205lbs. 8.0oz. kg; 41.00 BMI Method: General Appearance: WD/WN, mild distress (Mild increased work of breathing) HEENT: PERRL/EOMI, normal ENT inspection, pharynx normal Neck: non-tender, full range of motion, supple, normal inspection Respiratory: chest non-tender, other (Mild increased work of breathing with use of accessory muscles. Diffuse expiratory wheezing bilaterally. Few crackles in the bases bilaterally as well.) Cardiovascular: regular rate, rhythm, no gallop, no murmur Gastrointestinal: normal bowel sounds, non tender, soft, no organomegaly, other (Large ventral hernia, soft and nontender) Extremities: swelling (1+ pitting edema bilateral lower extremities, left is slightly greater than right) Neurologic/Psychiatric: alert, normal mood/affect, oriented x 3 Skin: warm/dry, other (Chronic venous stasis changes bilateral lower extremities) Focused Exam Lactate Level 11/23/22 13:00: Lactic Acid Level 1.56 Lactic Acid Level Laboratory Tests Test 11/23/22 13:00 Lactic Acid Level 1.56 MMOL/L (0.50-2.00) Progress/Results/Core Measures Suspected Sepsis SIRS Temperature: Pulse: 93 Respiratory Rate: 14 Laboratory Tests 11/23/22 13:00: White Blood Count 10.0 Blood Pressure 191 /103 Mean: 132 11/23/22 13:00: Lactic Acid Level 1.56 Laboratory Tests 11/23/22 13:00: Creatinine 1.76H, Platelet Count 239, Total Bilirubin 0.6 Results/Orders Lab Results Laboratory Tests Test 11/23/22 13:00 Range/Units White Blood Count 10.0 4.3-11.0 10^3/uL Red Blood Count 4.86 3.80-5.11 10^6/uL Hemoglobin 14.4 11.5-16.0 g/dL Hematocrit 45 35-52 % Mean Corpuscular Volume 93 80-99 fL Mean Corpuscular Hemoglobin 30 25-34 pg Mean Corpuscular Hemoglobin Concent 32 32-36 g/dL Red Cell Distribution Width 14.4 10.0-14.5 % Platelet Count 239 130-400 10^3/uL Mean Platelet Volume 9.5 9.0-12.2 fL Immature Granulocyte % (Auto) 1 % Neutrophils (%) (Auto) 82 H 42-75 % Lymphocytes (%) (Auto) 10 L 12-44 % Monocytes (%) (Auto) 4 0-12 % Eosinophils (%) (Auto) 3 0-10 % Basophils (%) (Auto) 0 0-10 % Neutrophils # (Auto) 8.1 H 1.8-7.8 10^3/uL Lymphocytes # (Auto) 1.0 1.0-4.0 10^3/uL Monocytes # (Auto) 0.4 0.0-1.0 10^3/uL Eosinophils # (Auto) 0.3 0.0-0.3 10^3/uL Basophils # (Auto) 0.0 0.0-0.1 10^3/uL Immature Granulocyte # (Auto) 0.1 0.0-0.1 10^3/uL Sodium Level 140 135-145 MMOL/L Potassium Level 4.1 3.6-5.0 MMOL/L Chloride Level 101 98-107 MMOL/L Carbon Dioxide Level 29 21-32 MMOL/L Anion Gap 10 5-14 MMOL/L Blood Urea Nitrogen 27 H 7-18 MG/DL Creatinine 1.76 H 0.60-1.30 MG/DL Estimat Glomerular Filtration Rate 29 BUN/Creatinine Ratio 15 Glucose Level 130 H 70-105 MG/DL Lactic Acid Level 1.56 0.50-2.00 MMOL/L Calcium Level 9.6 8.5-10.1 MG/DL Corrected Calcium 10.1 8.5-10.1 MG/DL Total Bilirubin 0.6 0.1-1.0 MG/DL Aspartate Amino Transf (AST/SGOT) 14 5-34 U/L Alanine Aminotransferase (ALT/SGPT) 18 0-55 U/L Alkaline Phosphatase 154 H 40-136 U/L Troponin I < 0.028 <0.028 NG/ML B-Type Natriuretic Peptide 319.2 H <100.0 PG/ML Total Protein 6.7 6.4-8.2 GM/DL Albumin 3.4 3.2-4.5 GM/DL My Orders Orders - CHAKAYLIE DO Cbc With Automated Diff (11/23/22 13:02) Comprehensive Metabolic Panel (11/23/22 13:02) Blood Culture (11/23/22 13:02) Chest 1 View, Ap/Pa Only (11/23/22 13:02) Ed Iv/Invasive Line Start (11/23/22 13:02) Vital Signs Adult Sepsis Patie Q15M (11/23/22 13:02) O2 (11/23/22 13:02) Lactic Acid Analyzer (11/23/22 13:02) Bnp [place] (11/23/22 13:02) Covid 19 Inhouse Test (11/23/22 13:02) Albuterol/Ipra Inhalation Soln (Duoneb I (11/23/22 13:15) Svn Small Volume Nebulizer (11/23/22 13:03) Methylprednisolone Sod Succ (Solu-Medrol (11/23/22 13:15) Troponin I [place] (11/23/22 13:06) Ekg Tracing (11/23/22 13:06) Ceftriaxone Iv/Im (Rocephin Iv/Im) (11/23/22 13:45) Vancomycin Injection (Vancomycin Injecti (11/23/22 13:45) Ct Chest Wo (11/23/22 13:44) Medications Given in ED Current Medications Medications Dose Ordered Sig/Angel Route Start Time Stop Time Status Last Admin Dose Admin Albuterol/ Ipratropium 3 ml ONCE ONCE INH 11/23/22 13:15 11/23/22 13:16 DC 11/23/22 13:23 3 ML Methylprednisolone Sodium Succinate 125 mg ONCE ONCE IVP 11/23/22 13:15 11/23/22 13:16 DC 11/23/22 13:07 125 MG Vital Signs/I&O 11/23/22 11/23/22 11/23/22 11/23/22 12:54 12:54 12:54 13:38 Temp 37.4 Pulse 93 Resp 14 B/P (MAP) 191/103 (132) Pulse Ox 91 91 93 O2 Delivery Nasal Cannula Nasal Cannula Nasal Cannula High Flow N/C O2 Flow Rate 5.00 4.00 5.00 5.00 Capillary Refill : Blood Pressure Mean: 132 Departure Communication (Admissions) Patient has increased oxygen demand from baseline. Chest x-ray shows right lower infiltrate. I spoke to Dr. Cheatham she states she has a significant history of pleural effusion requiring chest tube placement. She request CT of her chest. This is ordered without contrast. She does have a normal white blood cell count she does have a left shift. Chemistry is relatively unremarkable outside of her chronic kidney disease which is at its baseline. I have reviewed all labs in their entirety. I have reviewed chest x-ray images independently. Her EKG is nonischemic. She does have mild elevation of her troponin which she has had in the past. This is likely demand ischemia. I went ahead and gave her Rocephin and Zithromax in case this was related to pneumonia. Cultures were obtained prior to administration of antibiotics. She will be admitted in stable condition. Impression Primary Impression: Acute and chronic respiratory failure with hypoxia Additional Impression: Chronic renal disease Qualified Codes: N18.9 - Chronic kidney disease, unspecified Disposition: ADMITTED INPATIENT Condition: Stable Admissions Decision to Admit Reason: Admit from ER (General) Departure-Patient Inst. Referrals: VIKY CHEATHAM MD (PCP/Family) Primary Care Physician KAYLIE EUBANKS DO Nov 23, 2022 13:06
[2022-11-23] MEDS ORDERED: methylPREDNISolone 125 MG (Solu-MEDROL) VIAL IVP ONE (13:15)
[2022-11-23] MEDS ORDERED: RT-ALBUTEROL/IPRATROPIUM 3 ML (DUONEB) VIAL INH ONE (13:15)
[2022-11-23 13:17] LABS: BASOPHILS % (AUTO) 0 % (0-10); EOSINOPHILS # (AUTO) 0.3 10^3/uL (0.0-0.3); EOSINOPHILS % (AUTO) 3 % (0-10); HEMATOCRIT 45 % (35-52); HEMOGLOBIN 14.4 g/dL (11.5-16.0); LYMPHOCYTES % (AUTO) 10 % (12-44); MEAN CORPUSCULAR HEMOGLOBIN 30 pg (25-34); MEAN CORPUSCULAR HGB CONC 32 g/dL (32-36); MEAN CORPUSCULAR VOLUME 93 fL (80-99); MEAN PLATELET VOLUME 9.5 fL (9.0-12.2); MONOCYTES # (AUTO) 0.4 10^3/uL (0.0-1.0); MONOCYTES % (AUTO) 4 % (0-12); NEUTROPHILS # (AUTO) 8.1 10^3/uL (1.8-7.8); NEUTROPHILS % (AUTO) 82 % (42-75); PLATELET COUNT 239 10^3/uL (130-400)
[2022-11-23 13:25] LABS: ALBUMIN 3.4 GM/DL (3.2-4.5)
[2022-11-23 13:26] LABS: CHLORIDE 101 MMOL/L (98-107); POTASSIUM 4.1 MMOL/L (3.6-5.0); SODIUM 140 MMOL/L (135-145)
[2022-11-23 13:27] LABS: CALCIUM 9.6 MG/DL (8.5-10.1)
[2022-11-23 13:28] LABS: GLUCOSE 130 MG/DL (70-105); TOTAL PROTEIN 6.7 GM/DL (6.4-8.2)
[2022-11-23 13:29] LABS: CARBON DIOXIDE 29 MMOL/L (21-32)
[2022-11-23 13:30] LABS: BILIRUBIN,TOTAL 0.6 MG/DL (0.1-1.0)
[2022-11-23 13:31] LABS: ALKALINE PHOSPHATASE 154 U/L (40-136)
--- NOTE | 2022-11-23 13:31 | Diagnostic Imaging Report ---
INDICATION: Dyspnea and hypoxia. Comparison is made with prior examination of 01/18/2021. FINDINGS: There is cardiomegaly and some central pulmonary venous congestion. There is elevation of the right hemidiaphragm with a patchy right basilar infiltrate. There is no pneumothorax. Mediastinum is unremarkable. IMPRESSION: Cardiomegaly and mild venous congestion. Patchy right basilar infiltrate with some elevation of the right hemidiaphragm. Dictated by: Dictated on workstation # [id number]
[2022-11-23 13:32] LABS: CREATININE SERUM 1.76 MG/DL (0.60-1.30); GFR ESTIMATED 29
[2022-11-23 13:33] LABS: BUN/CREATININE RATIO 15
[2022-11-23 13:34] LABS: ALANINE AMINOTRANSFERASE 18 U/L (0-55)
[2022-11-23] MEDS ORDERED: cefTRIAXone IV/IM 1,000 MG in NS (IVPB) 50 ML IV ONE (13:45)
[2022-11-23] MEDS ORDERED: VANCOMYCIN INJECTION 1,000 MG in NS (IVPB) 250 ML IV ONE (13:45)
--- NOTE | 2022-11-23 14:18 | Diagnostic Imaging Report ---
EXAMINATION: CT chest without contrast. TECHNIQUE: Multiple contiguous axial images were obtained through the chest without the use of intravenous contrast. All CT scans use one or more of the following dose optimizing techniques: automated exposure control, MA and/or KvP adjustment based on patient size and exam type or iterative reconstruction. HISTORY: Pleural effusion COMPARISON: 01/12/2020 FINDINGS: There is a moderate right pleural effusion. There is overlying consolidation suggestive of pneumonia. Lungs are emphysematous. There is septal line thickening in keeping with pulmonary edema. There is mild atelectasis in the left lower lobe. No pneumothorax. No suspicious nodules. There is no axillary or supraclavicular lymphadenopathy. There are unchanged mildly enlarged mediastinal lymph nodes measuring up to 1.2 cm. Many of the nodes are calcified. Heart size is normal. There are mild coronary artery calcifications. No pericardial effusion. Aorta is normal in caliber. Limited views of the upper abdomen show a large ventral hernia containing loops of bowel. Gallbladder is absent. There are no suspicious osseus lesions. IMPRESSION: 1. Moderate right pleural effusion with overlying consolidation most consistent with pneumonia. Dictated by: Dictated on workstation # [id number]
[2022-11-23 15:00] VITALS: BP 149/77
[2022-11-23 15:41] VITALS: BP 149/77
[2022-11-23] MEDS ORDERED: RT-ALBUTEROL SULF 2.5 MG/3 ML PRE-MIX VIAL INH PRN (16:15)
[2022-11-23] MEDS ORDERED: RT-ALBUTEROL SULF 2.5 MG/3 ML PRE-MIX VIAL INH SCH (18:00)
[2022-11-23] MEDS: RT-ALBUTEROL/IPRATROPIUM 3 ML (DUONEB) VIAL IH SCH ×2 (18:51→22:43)
--- NOTE | 2022-11-23 18:56 | History & Physical ---
HPI History of Present Illness: 82 yo F with known COPD with baseline oxygen requirement and CHF that presents with acute shortness of breath. Patient normally on 3LPM NC and daughter has turned it up to 5LPM the last 2 days. Daughter noted 4# weight gain in the last 48hrs. No change in diet. States that she has been more fatigued and not getting up as much as she does at baseline. She has had a steady decline in activity over the last few months. She has been taking her breathing treatments with little to no improvement. They have not noticed her legs swelling more but daughter states that she has given 2-3 extra doses of lasix after calling PCP nursing. Source: patient, family (daughter) Exam Limitations: no limitations Date seen by provider: Nov 23, 2022 Time Seen by Provider: 17:15 Attending Physician Viky Wooten MD PCP Admitting Physician: Viky Wooten MD Attending Physician: Viky Wooten MD Consult Date of Admission Nov 23, 2022 at 14:58 Home Medications Home Medications Reviewed patient Home Medication Reconciliation performed by pharmacy medication reconciliations tower technician and/or nursing. Patients Allergies have been reviewed. Allergies Coded Allergies: No Known Drug Allergies (Unverified , 03/20/19) QCO-Yzkmhl-Xhophj Hx Patient Social History Living Status: Lives at home with daughter as primary caregiver Smoking Status: Current Everyday Smoker 2nd Hand Smoke Exposure: No Recent Hopitalizations: No Alcohol Use?: No Tobacco type used: Cigarettes Immunizations Up To Date Influenza Vaccine Up-to-Date: Yes; Up-to-Date First/Initial COVID19 Vaccinat: "2 shots" Second COVID19 Vaccination Beck: UNKNOWN Third COVID19 Vaccination Date: NA Past Medical History COPD with baseline oxygen requirement of 3LPM CHF Chronic recurrent pleural effusions Chronic Kidney disease Gout Review of Systems (CHC) Constitutional: chills; No fever; malaise EENTM: no symptoms reported; No mouth pain, No nose congestion Respiratory: dyspnea on exertion, orthopnea, short of breath Cardiovascular: no symptoms reported; No chest pain, No palpitations Gastrointestinal: no symptoms reported; No abdominal pain, No constipation, No diarrhea, No nausea, No vomiting Genitourinary: decreased output; No dysuria, No frequency Musculoskeletal: back pain, joint pain Skin: no symptoms reported; No lesions, No rash Psychiatric/Neurological: Weakness Reviewed Test Results Reviewed Test Results Lab Laboratory Tests Test 11/23/22 13:00 11/23/22 15:50 Range/Units White Blood Count 10.0 4.3-11.0 10^3/uL Red Blood Count 4.86 3.80-5.11 10^6/uL Hemoglobin 14.4 11.5-16.0 g/dL Hematocrit 45 35-52 % Mean Corpuscular Volume 93 80-99 fL Mean Corpuscular Hemoglobin 30 25-34 pg Mean Corpuscular Hemoglobin Concent 32 32-36 g/dL Red Cell Distribution Width 14.4 10.0-14.5 % Platelet Count 239 130-400 10^3/uL Mean Platelet Volume 9.5 9.0-12.2 fL Immature Granulocyte % (Auto) 1 % Neutrophils (%) (Auto) 82 H 42-75 % Lymphocytes (%) (Auto) 10 L 12-44 % Monocytes (%) (Auto) 4 0-12 % Eosinophils (%) (Auto) 3 0-10 % Basophils (%) (Auto) 0 0-10 % Neutrophils # (Auto) 8.1 H 1.8-7.8 10^3/uL Lymphocytes # (Auto) 1.0 1.0-4.0 10^3/uL Monocytes # (Auto) 0.4 0.0-1.0 10^3/uL Eosinophils # (Auto) 0.3 0.0-0.3 10^3/uL Basophils # (Auto) 0.0 0.0-0.1 10^3/uL Immature Granulocyte # (Auto) 0.1 0.0-0.1 10^3/uL Sodium Level 140 135-145 MMOL/L Potassium Level 4.1 3.6-5.0 MMOL/L Chloride Level 101 98-107 MMOL/L Carbon Dioxide Level 29 21-32 MMOL/L Anion Gap 10 5-14 MMOL/L Blood Urea Nitrogen 27 H 7-18 MG/DL Creatinine 1.76 H 0.60-1.30 MG/DL Estimat Glomerular Filtration Rate 29 BUN/Creatinine Ratio 15 Glucose Level 130 H 70-105 MG/DL Lactic Acid Level 1.56 0.50-2.00 MMOL/L Calcium Level 9.6 8.5-10.1 MG/DL Corrected Calcium 10.1 8.5-10.1 MG/DL Total Bilirubin 0.6 0.1-1.0 MG/DL Aspartate Amino Transf (AST/SGOT) 14 5-34 U/L Alanine Aminotransferase (ALT/SGPT) 18 0-55 U/L Alkaline Phosphatase 154 H 40-136 U/L Troponin I < 0.028 <0.028 NG/ML B-Type Natriuretic Peptide 319.2 H <100.0 PG/ML Total Protein 6.7 6.4-8.2 GM/DL Albumin 3.4 3.2-4.5 GM/DL SARS-CoV-2 RNA (RT-PCR) Not Detected Not Detecte Glucometer 133 H 70-110 MG/DL Physical Exam-([facility]) Physical Exam Vital Signs VS - Last 72 Hours, by Label 11/23/22 11/23/22 11/23/22 11/23/22 12:54 12:54 12:54 13:38 Temp 37.4 Pulse 93 Resp 14 B/P (MAP) 191/103 (132) Pulse Ox 91 91 93 O2 Delivery Nasal Cannula Nasal Cannula Nasal Cannula High Flow N/C O2 Flow Rate 5.00 4.00 5.00 5.00 11/23/22 11/23/22 11/23/22 15:00 15:41 15:57 Temp 36.4 36.4 Pulse 83 83 Resp 18 18 B/P (MAP) 149/77 (101) 149/77 (101) Pulse Ox 92 92 O2 Delivery Nasal Cannula High Flow N/C High Flow N/C O2 Flow Rate 4.00 4.00 5.00 Capillary Refill : General Appearance: WD/WN, no apparent distress, obese Neck: non-tender, full range of motion Respiratory: no respiratory distress, no accessory muscle use, other (Right base without breath sounds, rhochi on the left with diffuse wheezing) Cardiovascular: regular rate, rhythm, no murmur Gastrointestinal: normal bowel sounds, non tender, soft Back: no CVA tenderness, no vertebral tenderness Extremities: normal range of motion, non-tender, pedal edema (1+) Neurologic/Psychiatric: transcript evaluator II-XII nml as tested, alert, oriented x 3 Skin: normal color, warm/dry Lymphatic: no adenopathy Assessment/Plan Assessment/Plan Admission Status: Inpatient Order (span 2 midnights) Reason for Inpatient Admission: high risk of decompensation, requiring more oxygen then her baseline and has several chronic diseases (1) Acute and chronic respiratory failure with hypoxia Status: Acute Assessment & Plan: - MAT protocol, prn treatments, will titrate oxygen as tolerated (2) CAP (community acquired pneumonia) Status: Acute Assessment & Plan: - Cefedinir BID Qualifiers: Qualified Codes: J18.9 - Pneumonia, unspecified organism (3) Acute on chronic diastolic (congestive) heart failure Status: Acute Assessment & Plan: - Elevated BNP, will give 1 dose of lasix today, Strict I/Os, consult cardiology to see patient in AM (4) Pleural effusion Status: Acute (5) Renal failure (ARF), acute on chronic Status: Acute Assessment & Plan: - Will continue to monitor closely with diuresis Qualifiers: Qualified Codes: N17.9 - Acute kidney failure, unspecified; N18.32 - Chronic kidney disease, stage 3b (6) HLD (hyperlipidemia) Status: Chronic Qualifiers: Qualified Codes: E78.2 - Mixed hyperlipidemia (7) HTN (hypertension) Status: Chronic Qualifiers: Qualified Codes: I10 - Essential (primary) hypertension (8) DVT prophylaxis Status: Acute Assessment & Plan: VIKY Mckee MD Nov 23, 2022 18:56
[2022-11-23] MEDS ORDERED: ENOXAPARIN 40 MG/0.4 ML (LOVENOX) SYR SQ SCH (19:00)
[2022-11-23] MEDS ORDERED: FUROSEMIDE 40 MG/4 ML INJ (LASIX) IVP NR (19:00)
[2022-11-23] MEDS: ENOXAPARIN INJECTION 30 MG/0.3 ML SYR SC SCH (19:44)
[2022-11-23 20:02] VITALS: BP 158/76
[2022-11-23] MEDS: CEFDINIR 300 MG (OMNICEF) CAP PO SCH (21:03)
[2022-11-23] MEDS: clonazePAM 0.5 MG (KlonoPIN) TAB PO PRN (22:38)
[2022-11-23 23:58] VITALS: BP 145/74
[2022-11-24 03:14] VITALS: BP 129/64
[2022-11-24] MEDS: RT-ALBUTEROL/IPRATROPIUM 3 ML (DUONEB) VIAL IH SCH ×6 (03:24→22:10)
[2022-11-24] MEDS ORDERED: ACETAMINOPHEN 325 MG TABLET ONE (05:06)
[2022-11-24 06:07] LABS: BASOPHILS % (AUTO) 0 % (0-10); EOSINOPHILS % (AUTO) 0 % (0-10); HEMATOCRIT 42 % (35-52); HEMOGLOBIN 13.4 g/dL (11.5-16.0); LYMPHOCYTES # (AUTO) 0.7 10^3/uL (1.0-4.0); LYMPHOCYTES % (AUTO) 6 % (12-44); MEAN CORPUSCULAR HEMOGLOBIN 30 pg (25-34); MEAN CORPUSCULAR HGB CONC 32 g/dL (32-36); MEAN CORPUSCULAR VOLUME 93 fL (80-99); MEAN PLATELET VOLUME 9.9 fL (9.0-12.2); MONOCYTES # (AUTO) 0.2 10^3/uL (0.0-1.0); MONOCYTES % (AUTO) 2 % (0-12); NEUTROPHILS # (AUTO) 9.5 10^3/uL (1.8-7.8); NEUTROPHILS % (AUTO) 91 % (42-75); PLATELET COUNT 212 10^3/uL (130-400); WHITE BLOOD COUNT 10.5 10^3/uL (4.3-11.0)
[2022-11-24 06:29] LABS: ALBUMIN 3.3 GM/DL (3.2-4.5); POTASSIUM 4.1 MMOL/L (3.6-5.0)
[2022-11-24 06:31] LABS: CALCIUM 9.4 MG/DL (8.5-10.1)
[2022-11-24 06:32] LABS: TOTAL PROTEIN 6.2 GM/DL (6.4-8.2)
[2022-11-24 06:34] LABS: BILIRUBIN,TOTAL 0.3 MG/DL (0.1-1.0)
[2022-11-24 06:36] LABS: CREATININE SERUM 1.74 MG/DL (0.60-1.30)
[2022-11-24 06:50] VITALS: BP 149/85
[2022-11-24 07:06] LABS: LYMPHOCYTES % (MANUAL) 6 %; MONOCYTES % (MANUAL) 2 %; NEUTROPHILS % (MANUAL) 92 %
[2022-11-24 07:07] LABS: BURR CELLS SLIGHT; ELLIPT/OVALOCYTES SLIGHT
--- NOTE | 2022-11-24 07:14 | Physical Therapy Progress Note ---
Therapy Progress Note Patient transferred to ICU for higher level of care due to increase O2 demand. PT will require new orders when patient is deemed medically stable and able to actively and safely participate with skilled therapy. SHERRI HERMOSILLO PT Nov 24, 2022 07:14
--- NOTE | 2022-11-24 08:08 | Tele-ICU Consult ---
History of Present Illness History of Present Illness Date Seen by Provider: Nov 24, 2022 Time Seen by Provider: 08:02 History of Present Illness (Tele-ICU Physician , eICU Consult ) Service provided via interactive audio and video [employer] E-CARE system to a patient admitted to ICU bed in [facility]. Patient is seen today due to persistent need of ICU care Available chart/ vitals / labs / Images reviewed Video assessment done using teleICU camera, rest of exam as per RN Discussed with RN 82 yo F has COPD, CHF came to ED with cc SOB, on home oxygen. For last few days pt has been gaining weight, Has been taking extra doses of lasix Now on BiPAP 04/25, FiO2 50% CXR shows RLL PNA and right pleural effusion, enlarged heart BNP 319, troponin normal Other PMH gout CKD recurrent pleural effusions Allergies and Home Medications Allergies Coded Allergies: No Known Drug Allergies (Unverified , 03/20/19) Home Medications Allopurinol 100 Mg Tablet, 50 MG PO DAILY, (Reported) TAKES OF A 100MG TAB Atorvastatin Calcium 80 Mg Tablet, 80 MG PO HS, (Reported) Clonazepam 0.5 Mg Tablet, 0.5 MG PO HS, (Reported) Diltiazem HCl 300 Mg Cap.er.24h, 300 MG PO HS, (Reported) Fluticasone/Salmeterol 1 Each Blst.w.dev, 1 EACH IH BID, (Reported) Furosemide 40 Mg Tablet, 40 MG PO DAILY, (Reported) Loratadine 10 Mg Tablet, 10 MG PO DAILY, (Reported) Nebivolol HCl 10 Mg Tab, 10 MG PO HS, (Reported) Prednisone 20 Mg Tab, 20 MG PO DAILY Take 3 tabs x 2 days then take 2 tabs x 2 days then take 1 tab x 2 days then 1/2 tab x 4 days Prescribed by: VIKY CHEATHAM on 01/21/21 1312 Past Medical/Social/Family Hx Patient Social History Living Status: Lives at home with daughter as primary caregiver Tobacco Use?: Yes Tobacco type used: Cigarettes Smoking Status: Current Everyday Smoker Use of E-Cig and/or Vaping dev: No Substance use?: No Alcohol Use?: No Pt stated abuse/neglect: No Immunizations Up To Date Influenza Vaccine Up-to-Date: Yes; Up-to-Date First/Initial COVID19 Vaccinat: "2 shots" Second COVID19 Vaccination Beck: UNKNOWN Tetanus Booster (TDap): Unknown Hepatitis A: No Hepatitis B: No TB Skin Test: None Current Status status: No status: No Advance Directives: Yes Advance Directive Location: Family to bring in copy Communicates: Verbally Primary Language: Belgian Preferred Spoken Language: Belgian Is interpretation needed?: No Sensory deficits: Vision impairment Implanted or Applied Medical D: CPAP, Stents Past Medical History COPD with baseline oxygen requirement of 3LPM CHF Chronic recurrent pleural effusions Chronic Kidney disease Gout Review of Systems Constitutional: see HPI EENTM: see HPI Respiratory: see HPI Cardiovascular: see HPI Gastrointestinal: see HPI Genitourinary: see HPI Musculoskeletal: see HPI Skin: see HPI Psychiatric/Neurological: See HPI Focused Exam Lactate Level 11/23/22 13:00: Lactic Acid Level 1.56 Height, Weight, BMI Height: '" Weight: 205lbs. 8.0oz. kg; 39.53 BMI Method: Exam Exam Patient acknowledged, consented, and participated in this virtual visit which was conducted using real time audio/video Vital Signs Date Time Temp Pulse Resp B/P (MAP) Pulse Ox O2 Delivery O2 Flow Rate FiO2 11/24/22 07:47 36.6 11/24/22 07:00 83 11/24/22 06:50 89 31 93 50.00 11/24/22 05:18 NIV Bilevel 40 11/24/22 04:16 97 11/24/22 03:24 86 High Flow N/C 5.50 11/24/22 03:14 36.4 95 20 129/64 (85) 92 Nasal Cannula 5.50 11/23/22 23:58 36.5 88 20 145/74 (97) 94 Nasal Cannula 5.50 11/23/22 22:43 93 High Flow N/C 5.00 11/23/22 20:02 36.8 90 18 158/76 (103) 94 Nasal Cannula 5.00 11/23/22 19:50 Nasal Cannula 5.00 11/23/22 18:51 High Flow N/C 5.00 11/23/22 15:57 High Flow N/C 5.00 11/23/22 15:41 36.4 83 18 149/77 (101) 92 High Flow N/C 4.00 11/23/22 15:00 36.4 83 18 149/77 (101) 92 Nasal Cannula 4.00 11/23/22 14:58 84 18 174/98 92 Nasal Cannula 5.00 11/23/22 13:38 93 High Flow N/C 5.00 11/23/22 12:54 37.4 93 14 191/103 (132) 91 Nasal Cannula 5.00 11/23/22 12:54 Nasal Cannula 4.00 11/23/22 12:54 91 Nasal Cannula 5.00 I & O 11/24/22 06:59 Intake Total 1135 ml Output Total 350 ml Balance 785 ml Height & Weight Height: '" Weight: 205lbs. 8.0oz. kg; 39.53 BMI Method: General Appearance: Mild Distress Gastrointestinal: normal bowel sounds, non tender, soft Results Lab Laboratory Tests 11/23/22 13:00 11/24/22 05:43 Assessment/Plan Assessment/Plan CHF, PNA will continue on IV Lasix and abx Montior and try to reduce oxygen requirements Pt is DNR, DNI Critical Care: Critically Ill Patient Time spent with patient (mins): 25 WADE GARDNER MD Nov 24, 2022 08:08
[2022-11-24] MEDS: CEFDINIR 300 MG (OMNICEF) CAP PO SCH (08:35)
[2022-11-24] MEDS: predniSONE 20 MG TAB PO SCH (08:35)
[2022-11-24] MEDS ORDERED: clonazePAM 0.5 MG (KlonoPIN) TAB PO SCH (09:00)
--- NOTE | 2022-11-24 09:58 | Consultation-Cardiology ---
HPI-Cardiology Cardiology Consultation: Date of Consultation 11/24/22 Date of Admission Attending Physician Viky Cheatham MD Admitting Physician Admitting Physician: Viky Cheatham MD Attending Physician: Viky Cheatham MD Consulting Physician Janet Leong MD MFL-Jjpzxe-Kyfdvs Hx Patient Social History Living Status: Lives at home with daughter as primary caregiver Smoking Status: Current Everyday Smoker 2nd Hand Smoke Exposure: No Alcohol Use?: No Pt feels they are or have been: No Tobacco type used: Cigarettes Past Medical History PMH As described under Assessment. Family Medical History Family Medical History: Father had [facility] when he was in his 60s Allergies and Home Medications Allergies Coded Allergies: No Known Drug Allergies (Unverified , 03/20/19) Patient Home Medication List Acetaminophen (Tylenol Extra Strength) 500 Mg Tablet, 500-1,000 MG PO Q8H PRN for PAIN-MILD (1-4), (Reported) Entered as Reported by: MATT CAMPA on 11/24/221133 Last Action: Held Albuterol Sulfate (Ventolin Hfa) 90 Mcg Hfa.aer.ad, 2 PUFF INH Q6H PRN for SHORTNESS OF BREATH, (Reported) Entered as Reported by: MATT CAMPA on 11/24/221133 Last Action: Held Allopurinol (Allopurinol) 100 Mg Tablet, 100 MG PO DAILY, (Reported) Entered as Reported by: DENISSE HUERTA on 03/20/191314 Last Action: Continued Atorvastatin Calcium (Atorvastatin Calcium) 80 Mg Tablet, 80 MG PO HS, (Reported) Entered as Reported by: DENISSE HUERTA on 03/20/191314 Last Action: Continued Calcitriol (Calcitriol) 0.25 Mcg Capsule, 0.25 MCG PO MON,WED, (Reported) Entered as Reported by: MATT CAMPA on 11/24/221133 Last Action: Continued Carvedilol (Carvedilol) 6.25 Mg Tablet, 6.25 MG PO BID, (Reported) Entered as Reported by: MATT CAMPA on 11/24/221133 Last Action: Continued Cetirizine HCl (Cetirizine HCl) 10 Mg Tablet, 10 MG PO DAILY, (Reported) Entered as Reported by: MATT CAMPA on 11/24/221133 Last Action: Converted Clonazepam (Clonazepam) 1 Mg Tablet, 1 MG PO HS, (Reported) Entered as Reported by: MATT CAMPA on 11/24/221133 Last Action: Continued Diltiazem HCl (Diltiazem 24Hr ER) 300 Mg Cap.er.24h, 300 MG PO HS, (Reported) Entered as Reported by: MATT CAMPA on 01/13/21 135 Last Action: Continued Docusate Sodium (Stool Softener) 100 Mg Capsule, 100 MG PO BID PRN for CONSTIPATION-1ST LINE, (Reported) Entered as Reported by: MATT CAMPA on 11/24/221133 Last Action: Continued Ferrous Sulfate (Iron) 325 Mg (65 Mg Iron) Tablet, 325 MG PO BID, (Reported) Entered as Reported by: MATT CAMPA on 11/24/221133 Last Action: Continued Fluticasone/Umeclidin/Vilanter (Trelegy Ellipta 100-62.5-25) 100-62.5 Blst.w.dev, 1 PUFF INH HS, (Reported) Entered as Reported by: MATT CAMPA on 11/24/221133 Last Action: Converted Furosemide (Furosemide) 40 Mg Tablet, 40 MG PO DAILY, (Reported) Entered as Reported by: DENISSE HUERTA on 03/20/191314 Last Action: Held Discontinued Medications Clonazepam (Clonazepam) 0.5 Mg Tablet, 0.5 MG PO HS, (Reported) Discontinued Reason: No Longer Taking Entered as Reported by: DENISSE HUERTA on 03/20/191314 Last Action: Discontinued Fluticasone/Salmeterol (Advair 250-50 Diskus) 1 Each Blst.w.dev, 1 EACH IH BID, (Reported) Discontinued Reason: No Longer Taking Entered as Reported by: MATT CAMPA on 01/13/211358 Last Action: Discontinued Loratadine (Loratadine) 10 Mg Tablet, 10 MG PO DAILY, (Reported) Discontinued Reason: No Longer Taking Entered as Reported by: DENISSE HUERTA on 03/20/191314 Last Action: Discontinued Nebivolol HCl (Bystolic) 10 Mg Tab, 10 MG PO HS, (Reported) Discontinued Reason: No Longer Taking Entered as Reported by: DENISSE HUERTA on 10/31/19 1315 Last Action: Discontinued Prednisone (Prednisone) 20 Mg Tab, 20 MG PO DAILY Discontinued Reason: No Longer Taking Prescribed by: VIKY CHEATHAM on 01/21/21 1312 Last Action: Discontinued Physical Exam-Cardiology Physical Exam Vital Signs/I&O 11/26/22 11/26/22 11/27/22 11/27/22 22:29 23:29 02:44 04:33 Temp 36.4 36.4 Pulse 77 79 77 77 Resp 22 22 23 B/P (MAP) 162/74 (103) 132/77 (95) Pulse Ox 94 94 94 95 O2 Delivery NIV Bilevel NIV Bilevel O2 Flow Rate 40.00 40.00 40.00 40.00 11/27/22 11/27/22 11/27/22 11/27/22 07:00 07:00 07:01 07:55 Temp 36.4 Pulse 73 Resp 20 B/P (MAP) 148/80 (102) Pulse Ox 92 91 O2 Delivery Nasal Cannula Nasal Cannula Nasal Cannula Nasal Cannula O2 Flow Rate 4.00 4.00 4.00 3.00 11/27/22 08:33 O2 Delivery Nasal Cannula O2 Flow Rate 3.00 11/27/22 00:00 Intake Total 1390 ml Balance 1390 ml Capillary Refill : Lymphatic: no adenopathy Data Review Labs Laboratory Tests 11/26/22 11:15: Glucometer 141H 11/26/22 16:27: Glucometer 201H 11/26/22 20:24: Glucometer 240H 11/27/22 05:08: White Blood Count 9.3, Red Blood Count 4.17, Hemoglobin 12.5, Hematocrit 39, Mean Corpuscular Volume 92, Mean Corpuscular Hemoglobin 30, Mean Corpuscular Hemoglobin Concent 33, Red Cell Distribution Width 14.3, Platelet Count 204, Mean Platelet Volume 9.8, Immature Granulocyte % (Auto) 1, Neutrophils (%) (A uto) 85H, Lymphocytes (%) (Auto) 9L, Monocytes (%) (Auto) 4, Eosinophils (%) (Auto) 0, Basophils (%) (Auto) 0, Neutrophils # (Auto) 7.9H, Lymphocytes # (Auto) 0.8L, Monocytes # (Auto) 0.4, Eosinophils # (Auto) 0.0, Basophils # (Auto) 0.0, Immature Granulocyte # (Auto) 0.1, Sodium Level 136, Potassium Level 4.7, Chloride Level 102, Carbon Dioxide Level 24, Anion Gap 10, Blood Urea Nitrogen 44H, Creatinine 2.21H, Estimat Glomerular Filtration Rate 22, BUN/Creatinine Ratio 20, Glucose Level 140H, Calcium Level 8.9, Corrected Calcium 9.5, Magnesium Level 2.3, Total Bilirubin 0.4, Aspartate Amino Transf (AST/SGOT) 13, Alanine Aminotransferase (ALT/SGPT) 26, Alkaline Phosphatase 109, Total Protein 5.8L, Albumin 3.2 11/27/22 05:39: Glucometer 127H Microbiology 11/24/22 MRSA Screen - Final, Complete MRSA not isolated 11/23/22 Blood Culture - Preliminary, Resulted No growth Radiology NAME: TAMERA KRAMER [facility] REC#: [id number] PT STATUS: ADM Chad : 1940 PHYSICIAN: KAYLIE EUBANKS DO ADMIT DATE: 11/23/22 Signed Date of Exam:11/23/22 CHEST 1 VIEW, AP/PA ONLY INDICATION: Dyspnea and hypoxia. Comparison is made with prior examination of 01/18/2021. FINDINGS: There is cardiomegaly and some central pulmonary venous congestion. There is elevation of the right hemidiaphragm with a patchy right basilar infiltrate. There is no pneumothorax. Mediastinum is unremarkable. IMPRESSION: Cardiomegaly and mild venous congestion. Patchy right basilar infiltrate with some elevation of the right hemidiaphragm. Dictated by: Dictated on workstation # [id number] Dict: 11/23/22 1328 Trans: 11/23/22 1503 [id number] Interpreted by: AIDA ALLEN MD Electronically signed by: AIDA ALLEN MD 11/23/22 1503 NAME: TAMERA KRAMER [facility] REC#: [id number] PT STATUS: ADM Chad : 1940 PHYSICIAN: KAYLIE EUBANKS DO ADMIT DATE: 11/23/22 Signed Date of Exam:11/23/22 CHEST 1 VIEW, AP/PA ONLY INDICATION: Dyspnea and hypoxia. Comparison is made with prior examination of 01/18/2021. FINDINGS: There is cardiomegaly and some central pulmonary venous congestion. There is elevation of the right hemidiaphragm with a patchy right basilar infiltrate. There is no pneumothorax. Mediastinum is unremarkable. IMPRESSION: Cardiomegaly and mild venous congestion. Patchy right basilar infiltrate with some elevation of the right hemidiaphragm. Dictated by: Dictated on workstation # [id number] Dict: 11/23/22 1328 Trans: 11/23/22 1503 [id number] Interpreted by: AIDA ALLEN MD Electronically signed by: AIDA ALLEN MD 11/23/22 1503 A/P-Cardiology Assessment/Admission Diagnosis H/O Large, parapneumonic, left-sided effusion, s/p thoracentesis in Dec 2020 H/O left sided pleural effusion - January 2022 - tx with thoracentesis and pleur-x catheter placement x 8 weeks COPD - due to chronic smoking of cigarettes Diastolic CHF - Probable HFpEF in Dec 2020 - Currently clinically compensated Obesity - BMI 37 - Obesity-hypovent with RALF, treated with CPAP Pulm hypertension - likely due to obesity-hypoventilation and RALF, followed by her wet pan operator (Dr. Pardo) CAD - Card cath of 03/25/19: mild to mod CAD, mild elevation of LVEDP - Echo of Feb 21, 2021: LVEF 60-65%. Grade 2 diastolic dysfunction. LA mildly dilated. Mod calcified mitral valve with mild MR. PASP 50-55 mmHg CKD 3 - managed by her activities therapist Hypertension - by history Hyperlipidemia - by history H/o chronic tobacco use - approx 40 pack-years - currently down to 3-4 cigs/day Ventral abdominal hernia - manged by PCP Carotid arterial disease. - S/p R CEA in [place], [place]. Pt does not recall surgeon or year of surgery. - Carotid u/s of September 18, 2019 showed mild bilat VINI Byrd [employer] Nov 24, 2022 09:58
[2022-11-24] MEDS ORDERED: CLON1TAB13 PO (11:34)
[2022-11-24] MEDS ORDERED: CARV6.252 PO (11:34)
[2022-11-24] MEDS ORDERED: FERR-84 PO (11:34)
[2022-11-24] MEDS ORDERED: CALC0.253 PO (11:34)
[2022-11-24] MEDS ORDERED: ACET-2267 PO (11:34)
[2022-11-24] MEDS ORDERED: FLUT1BLS3 INH (11:34)
[2022-11-24] MEDS ORDERED: CETI10TA17 PO (11:34)
[2022-11-24] MEDS ORDERED: DOCU-26 PO (11:34)
[2022-11-24] MEDS ORDERED: ALBU18HF2 INH (11:34)
[2022-11-24 11:56] VITALS: BP 127/69
[2022-11-24] MEDS: cefTRIAXone 1 GM/NS 50 ML IVPB IV SCH ×2 (12:00)
--- NOTE | 2022-11-24 12:06 | Progress Note ---
Subjective Subjective/Events-last exam Patient states that she is breathing better this AM. ON had a decompensation in respiratory status that required transfer up to ICU because she was requiring 10 LPM NC and satting in the low 90s. She is tolerating PO diet. She was up to chair this AM. Review of Systems General: Fatigue Pulmonary: Dyspnea Cardiovascular: No: Chest Pain, Palpitations, Edema Gastrointestinal: No: Nausea, Vomiting, Abdominal Pain, Diarrhea, Constipation Musculoskeletal: back pain Neurological: Weakness, Incoordination Focused Exam Lactate Level 11/23/22 13:00: Lactic Acid Level 1.56 Objective Exam Last Set of Vital Signs Vital Signs Date Time Temp Pulse Resp B/P (MAP) Pulse Ox O2 Delivery O2 Flow Rate FiO2 11/24/22 11:56 36.0 98 21 127/69 (88) 91 11/24/22 10:45 OxyMask 10.00 11/24/22 10:00 0 Capillary Refill : I&O Intake and Output 11/24/22 00:00 Intake Total 1135 ml Output Total 350 ml Balance 785 ml Intake Oral 835 ml IV Total 300 ml Output Urine Total 350 ml Daily Weight Change No General: Alert, Oriented X3, Mild Distress (with minimal activity) Lungs: Other (Diminished breath sounds on Rlung bases, Rhochi and wheezing present, increased work of breathing with activity) Heart: Regular Rate Abdomen: Soft, Other (Large umbilical hernia) Extremities: Other (1+ pitting edema) Neuro: Normal Speech Results/Procedures Lab Laboratory Tests 11/23/22 13:00: White Blood Count 10.0, Red Blood Count 4.86, Hemoglobin 14.4, Hematocrit 45, Mean Corpuscular Volume 93, Mean Corpuscular Hemoglobin 30, Mean Corpuscular Hemoglobin Concent 32, Red Cell Distribution Width 14.4, Platelet Count 239, Mean Platelet Volume 9.5, Immature Granulocyte % (Auto) 1, Neutrophils (%) (Auto) 82H, Lymphocytes (%) (Auto) 10L, Monocytes (%) (Auto) 4, Eosinophils (%) (Auto) 3, Basophils (%) (Auto) 0, Neutrophils # (Auto) 8.1H, Lymphocytes # (Auto) 1.0, Monocytes # (Auto) 0.4, Eosinophils # (Auto) 0.3, Basophils # (Auto) 0.0, Immature Granulocyte # (Auto) 0.1, Sodium Level 140, Potassium Level 4.1, Chloride Level 101, Carbon Dioxide Level 29, Anion Gap 10, Blood Urea Nitrogen 27H, Creatinine 1.76H, Estimat Glomerular Filtration Rate 29, BUN/Creatinine Ratio 15, Glucose Level 130H, Lactic Acid Level 1.56, Calcium Level 9.6, Corrected Calcium 10.1, Total Bilirubin 0.6, Aspartate Amino Transf (AST/SGOT) 14, Alanine Aminotransferase (ALT/SGPT) 18, Alkaline Phosphatase 154H, Troponin I < 0.028, B-Type Natriuretic Peptide 319.2H, Total Protein 6.7, Albumin 3.4, SARS-CoV-2 RNA (RT-PCR) Not Detected 11/23/22 15:50: Glucometer 133H 11/23/22 21:05: Glucometer 331H 11/24/22 05:29: Glucometer 175H 11/24/22 05:43: White Blood Count 10.5, Red Blood Count 4.53, Hemoglobin 13.4, Hematocrit 42, Mean Corpuscular Volume 93, Mean Corpuscular Hemoglobin 30, Mean Corpuscular Hemoglobin Concent 32, Red Cell Distribution Width 13.8, Platelet Count 212, Mean Platelet Volume 9.9, Immature Granulocyte % (Auto) 1, Neutrophils (%) (Auto) 91H, Lymphocytes (%) (Auto) 6L, Monocytes (%) (Auto) 2, Eosinophils (%) (Auto) 0, Basophils (%) (Auto) 0, Neutrophils # (Auto) 9.5H, Lymphocytes # (Auto) 0.7L, Monocytes # (Auto) 0.2, Eosinophils # (Auto) 0.0, Basophils # (Auto) 0.0, Immature Granulocyte # (Auto) 0.1, Neutrophils % (Manual) 92, Lymphocytes % (Manual) 6, Monocytes % (Manual) 2, Nereyda Cells SLIGHT, Elliptocytes SLIGHT, Sodium Level 138, Potassium Level 4.1, Chloride Level 103, Carbon Dioxide Level 22, Anion Gap 13, Blood Urea Nitrogen 29H, Creatinine 1.74H , Estimat Glomerular Filtration Rate 29, BUN/Creatinine Ratio 17, Glucose Level 180H, Calcium Level 9.4, Corrected Calcium 10.0, Total Bilirubin 0.3, Aspartate Amino Transf (AST/SGOT) 9, Alanine Aminotransferase (ALT/SGPT) 16, Alkaline Phosphatase 138H, Total Protein 6.2L, Albumin 3.3 11/24/22 10:36: Glucometer 182H Radiology NAME: TAMERA KRAMER [facility] REC#: [id number] PT STATUS: ADM Chad : 1940 PHYSICIAN: KAYLIE EUBANKS DO ADMIT DATE: 11/23/22 Signed Date of Exam:11/23/22 CHEST 1 VIEW, AP/PA ONLY INDICATION: Dyspnea and hypoxia. Comparison is made with prior examination of 01/18/2021. FINDINGS: There is cardiomegaly and some central pulmonary venous congestion. There is elevation of the right hemidiaphragm with a patchy right basilar infiltrate. There is no pneumothorax. Mediastinum is unremarkable. IMPRESSION: Cardiomegaly and mild venous congestion. Patchy right basilar infiltrate with some elevation of the right hemidiaphragm. Dictated by: Dictated on workstation # [id number] Dict: 11/23/22 1328 Trans: 11/23/22 1503 [id number] Interpreted by: AIDA ALLEN MD Electronically signed by: AIDA ALLEN MD 11/23/22 1503 NAME: TAMERA KRAMER [facility] REC#: [id number] PT STATUS: ADM Chad : 1940 PHYSICIAN: KAYLIE EUBANKS DO ADMIT DATE: 11/23/22 Signed Date of Exam:11/23/22 CHEST 1 VIEW, AP/PA ONLY INDICATION: Dyspnea and hypoxia. Comparison is made with prior examination of 01/18/2021. FINDINGS: There is cardiomegaly and some central pulmonary venous congestion. There is elevation of the right hemidiaphragm with a patchy right basilar infiltrate. There is no pneumothorax. Mediastinum is unremarkable. IMPRESSION: Cardiomegaly and mild venous congestion. Patchy right basilar infiltrate with some elevation of the right hemidiaphragm. Dictated by: Dictated on workstation # [id number] Dict: 11/23/22 1328 Trans: 11/23/22 1503 [id number] Interpreted by: AIDA ALLEN MD Electronically signed by: AIDA ALLEN MD 11/23/22 1503 Assessment/Plan Assessment/Plan (1) Acute and chronic respiratory failure with hypoxia Status: Acute Assessment & Plan: - MAT protocol, prn treatments, will titrate oxygen as tolerated 11/24: Decompensation ON, moved to ICU for closer evaluation, Will consult Dr Romeo to evaluate for thorocentesis (2) CAP (community acquired pneumonia) Status: Acute Assessment & Plan: - Cefedinir BID 11/24: Escalated to IV antibiotics since moved to ICU Qualifiers: Qualified Codes: J18.9 - Pneumonia, unspecified organism (3) Acute on chronic diastolic (congestive) heart failure Status: Acute Assessment & Plan: - Elevated BNP, will give 1 dose of lasix today, Strict I/Os, consult cardiology to see patient in AM 11/24: mild decompensation in CHF but I do not feel this is the root cause, consult cardiology, appreciate recommendations (4) Pleural effusion Status: Acute (5) Renal failure (ARF), acute on chronic Status: Acute Assessment & Plan: - Will continue to monitor closely with diuresis Qualifiers: Qualified Codes: N17.9 - Acute kidney failure, unspecified; N18.32 - Chronic kidney disease, stage 3b (6) HLD (hyperlipidemia) Status: Chronic Qualifiers: Qualified Codes: E78.2 - Mixed hyperlipidemia (7) HTN (hypertension) Status: Chronic Qualifiers: Qualified Codes: I10 - Essential (primary) hypertension (8) DVT prophylaxis Status: Acute Assessment & Plan: VIKY Mckee MD Nov 24, 2022 12:06
[2022-11-24 16:00] VITALS: BP 130/80
--- NOTE | 2022-11-24 16:06 | Consultation-Cardiology ---
HPI-Cardiology Cardiology Consultation: Date of Consultation 11/24/22 Time Seen by a Provider: 09:45 Date of Admission Attending Physician Viky Cheatham MD Admitting Physician Admitting Physician: Viky Cheatham MD Attending Physician: Viky Cheatham MD Consulting Physician KARINE ALEXIS MD, MA, FACP, FACC, [facility] [place], CCDS Physician requesting consult: Dr Cheatham HPI: Chief Complaint: Shortness of breath 82 yo woman with increasing shortness of breath, gen malaise, poor stamina, increase in wgt, and increase in leg swelling a few days prior to admission on 11/23/22. Denies cp or palp or syncope. No n/v/d. Review of Systems-Cardiology Review of Systems Constitutional: malaise, tiredness, weight gain Eyes: No vision change Ears/Nose/Throat: No ear discharge, No nasal drainage, No recent hearing loss Respiratory: As described under HPI Cardiovascular: As described under HPI Gastrointestinal: No diarrhea, No nausea, No vomiting Genitourinary: No dysuria, No hematuria, No urine frequency changes Musculoskeletal: back pain (chronic) Skin: No rash, No ulcerations Psychiatric/Neurological: No seizure, No focal weakness, No syncope Hematologic: No bleeding abnormalities GKW-Pakpyb-Kwlbjn Hx Patient Social History Living Status: Lives at home with daughter as primary caregiver Smoking Status: Current Everyday Smoker 2nd Hand Smoke Exposure: No Alcohol Use?: No Pt feels they are or have been: No Tobacco type used: Cigarettes Past Medical History PMH As described under Assessment. Family Medical History Family Medical History: Father had IA when he was in his 60s Allergies and Home Medications Allergies Coded Allergies: No Known Drug Allergies (Unverified , 03/20/19) Patient Home Medication List Home Medication List Reviewed: Yes Acetaminophen (Tylenol Extra Strength) 500 Mg Tablet, 500-1,000 MG PO Q8H PRN for PAIN-MILD (1-4), (Reported) Entered as Reported by: MATT CAMPA on 11/24/22 1398 Last Action: Reviewed Albuterol Sulfate (Ventolin Hfa) 90 Mcg Hfa.aer.ad, 2 PUFF INH Q6H PRN for SHORTNESS OF BREATH, (Reported) Entered as Reported by: MATT CAMPA on 11/24/22 9070 Last Action: Reviewed Allopurinol (Allopurinol) 100 Mg Tablet, 100 MG PO DAILY, (Reported) Entered as Reported by: DENISSE HUERTA on 03/20/191314 Last Action: Continued Atorvastatin Calcium (Atorvastatin Calcium) 80 Mg Tablet, 80 MG PO HS, (Reported) Entered as Reported by: DENISSE HUERTA on 03/20/191314 Last Action: Reviewed Calcitriol (Calcitriol) 0.25 Mcg Capsule, 0.25 MCG PO SUN,SUN, (Reported) Entered as Reported by: MATT CAMPA on 11/24/221133 Last Action: Reviewed Carvedilol (Carvedilol) 6.25 Mg Tablet, 6.25 MG PO BID, (Reported) Entered as Reported by: MATT CAMPA on 11/24/221133 Last Action: Continued Cetirizine HCl (Cetirizine HCl) 10 Mg Tablet, 10 MG PO DAILY, (Reported) Entered as Reported by: MATT CAMPA on 11/24/221133 Last Action: Reviewed Clonazepam (Clonazepam) 1 Mg Tablet, 1 MG PO HS, (Reported) Entered as Reported by: MATT CAMPA on 11/24/221133 Last Action: Reviewed Diltiazem HCl (Diltiazem 24Hr ER) 300 Mg Cap.er.24h, 300 MG PO HS, (Reported) Entered as Reported by: MATT CAMPA on 01/13/21 1359 Last Action: Continued Docusate Sodium (Stool Softener) 100 Mg Capsule, 100 MG PO BID PRN for CONSTIPATION-1ST LINE, (Reported) Entered as Reported by: MATT CAMPA on 11/24/221133 Last Action: Reviewed Ferrous Sulfate (Iron) 325 Mg (65 Mg Iron) Tablet, 325 MG PO BID, (Reported) Entered as Reported by: MATT CAMPA on 11/24/221133 Last Action: Reviewed Fluticasone/Umeclidin/Vilanter (Trelegy Ellipta 100-62.5-25) 100-62.5 Blst.w.dev, 1 PUFF INH HS, (Reported) Entered as Reported by: MATT CAMPA on 11/24/221133 Last Action: Reviewed Furosemide (Furosemide) 40 Mg Tablet, 40 MG PO DAILY, (Reported) Entered as Reported by: DENISSE HUERTA on 03/20/191314 Last Action: Reviewed Discontinued Medications Clonazepam (Clonazepam) 0.5 Mg Tablet, 0.5 MG PO HS, (Reported) Discontinued Reason: No Longer Taking Entered as Reported by: DENISSE HUERTA on 03/20/191314 Last Action: Discontinued Fluticasone/Salmeterol (Advair 250-50 Diskus) 1 Each Blst.w.dev, 1 EACH IH BID, (Reported) Discontinued Reason: No Longer Taking Entered as Reported by: MATT CAMPA on 01/13/21 1359 Last Action: Discontinued Loratadine (Loratadine) 10 Mg Tablet, 10 MG PO DAILY, (Reported) Discontinued Reason: No Longer Taking Entered as Reported by: DENISSE HUERTA on 03/20/191314 Last Action: Discontinued Nebivolol HCl (Bystolic) 10 Mg Tab, 10 MG PO HS, (Reported) Discontinued Reason: No Longer Taking Entered as Reported by: DENISSE HUERTA on 03/20/191314 Last Action: Discontinued Prednisone (Prednisone) 20 Mg Tab, 20 MG PO DAILY Discontinued Reason: No Longer Taking Prescribed by: VIKY CHEATHAM on 01/21/211311 Last Action: Discontinued Physical Exam-Cardiology Physical Exam Vital Signs/I&O 11/24/22 11/24/22 11/24/22 11/24/22 04:16 05:18 06:50 07:00 Pulse 97 89 82 Resp 31 18 B/P (MAP) 133/79 (101) Pulse Ox 93 90 O2 Delivery NIV Bilevel OxyMask O2 Flow Rate 50.00 10.00 FiO2 40 11/24/22 11/24/22 11/24/22 11/24/22 07:00 07:47 08:00 08:00 Temp 36.6 Pulse 83 95 Resp 33 B/P (MAP) 178/114 (145) Pulse Ox 91 O2 Delivery OxyMask OxyMask O2 Flow Rate 10.00 10.00 FiO2 0 11/24/22 11/24/22 11/24/22 11/24/22 09:00 10:00 10:00 10:45 Pulse 93 93 Resp 22 21 B/P (MAP) 158/85 (118) 151/99 (123) Pulse Ox 94 97 93 O2 Delivery OxyMask OxyMask OxyMask OxyMask O2 Flow Rate 10.00 10.00 10.00 10.00 FiO2 0 11/24/22 11/24/22 11/24/22 11/24/22 11:00 11:56 12:00 12:00 Temp 36.0 Pulse 96 98 92 Resp 27 21 30 B/P (MAP) 127/69 (88) 135/98 (110) Pulse Ox 98 91 87 O2 Delivery OxyMask OxyMask OxyMask O2 Flow Rate 10.00 10.00 10.00 FiO2 0 11/24/22 11/24/22 11/24/22 11/24/22 12:27 13:00 14:00 14:56 Pulse 90 96 92 Resp 20 20 B/P (MAP) 156/88 (120) Pulse Ox 90 90 90 O2 Delivery OxyMask OxyMask OxyMask O2 Flow Rate 10.00 10.00 6.00 11/24/22 11/24/22 15:00 15:58 Temp 35.9 Pulse 96 Resp 28 Pulse Ox 93 O2 Delivery OxyMask O2 Flow Rate 10.00 11/23/22 23:59 Intake Total 1135 ml Output Total 350 ml Balance 785 ml Capillary Refill : Constitutional: AAO x 3, well-developed, well-nourished HEENT: EOMI, hearing is well preserved; No xanthelasmas are seen Neck: carotid pulses are 2 + bilaterally, with good upstrokes Respiratory: No accessory muscle use; chest expansion is symmetric, chest is bilaterally symmetric, other (fair air entry, diminished at the bases) Cardiovascular: regular rate-rhythm, S1 and S2, systolic murmur (soft CRISTIANO at card base) Gastrointestinal: No tender; soft; No guarding, No rebound; audible bowel sounds Extremities: swelling (mild to mod, both legs); No clubbing, No cyanosis Neurologic/Psychiatric: oriented x 3, other (moves all limbs equally) Skin: normal color, warm/dry; No cyanosis Data Review Labs Laboratory Tests 11/23/22 21:05: Glucometer 331H 11/24/22 05:29: Glucometer 175H 11/24/22 05:43: White Blood Count 10.5, Red Blood Count 4.53, Hemoglobin 13.4, Hematocrit 42, Mean Corpuscular Volume 93, Mean Corpuscular Hemoglobin 30, Mean Corpuscular Hemoglobin Concent 32, Red Cell Distribution Width 13.8, Platelet Count 212, Mean Platelet Volume 9.9, Immature Granulocyte % (Auto) 1, Neutrophils (%) (Auto) 91H, Lymphocytes (%) (Auto) 6L, Monocytes (%) (Auto) 2, Eosinophils (%) ( Auto) 0, Basophils (%) (Auto) 0, Neutrophils # (Auto) 9.5H, Lymphocytes # (Auto) 0.7L, Monocytes # (Auto) 0.2, Eosinophils # (Auto) 0.0, Basophils # (Auto) 0.0, Immature Granulocyte # (Auto) 0.1, Neutrophils % (Manual) 92, Lymphocytes % (Manual) 6, Monocytes % (Manual) 2, Nereyda Cells SLIGHT, Elliptocytes SLIGHT, Sodium Level 138, Potassium Level 4.1, Chloride Level 103, Carbon Dioxide Level 22, Anion Gap 13, Blood Urea Nitrogen 29H, Creatinine 1.74H, Estimat Glomerular Filtration Rate 29, BUN/Creatinine Ratio 17, Glucose Level 180H, Calcium Level 9.4, Corrected Calcium 10.0, Total Bilirubin 0.3, Aspartate Amino Transf (AST/SGOT) 9, Alanine Aminotransferase (ALT/SGPT) 16, Alkaline Phosphatase 138H, Total Protein 6.2L, Albumin 3.3 11/24/22 10:36: Glucometer 182H 11/24/22 15:46: Glucometer 228H Microbiology 11/23/22 Blood Culture - Preliminary, Resulted No growth Laboratory Tests 11/23/22 13:00 11/24/22 05:43 A/P-Cardiology Assessment/Admission Diagnosis Ac exac of COPD due to community-acquired pneumonia Ac diastolic CHF - Echo of Feb 21, 2021: LVEF 60-65%. Grade 2 diastolic dysfunction. LA mildly dilated. Mod calcified mitral valve with mild MR. PASP 50-55 mmHg H/o pleural eff - mod, R pleural eff during this admission - large, parapneumonic, left-sided effusion, s/p thoracentesis in Dec 2020 - left-sided pleural effusion in January 2022 - tx with thoracentesis and pleur-x catheter placement x 8 weeks COPD - due to chronic smoking of cigarettes Obesity - BMI 39.5 - Obesity-hypovent with RALF, treated with CPAP Pulm hypertension - likely due to obesity-hypoventilation and RALF, followed by her spooling operator (Dr. 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 - S/p R CEA in [place], [place]. Pt does not recall surgeon or year of surgery. - Carotid u/s of September 18, 2019 showed mild bilat dz Discussion and Recomendations * Diuretic therapy as needed and as tolerated for CHF * Med svce managing pneumonia * Echo * Monitor labs * Advised to refrain from tobacco use KARINE ALEXIS MD FACP FAC CCDS Nov 24, 2022 16:06
--- NOTE | 2022-11-24 19:11 | Consultation - Surgery ---
History of Present Illness History of Present Illness Patient Consulted On(shabbir/time) 11/24/22 19:06 Time Seen by Provider: 17:04 History of Present Illness Surgery asked to consult regarding Pleural Effusion, respiratory distress. HPI per ED: 82-year-old female presents via private vehicle for worsening shortness of breath. She was advised to come in by Dr. Cheatham's nurse when she mentioned that she had gained 4 to 5 pounds in the last week and her oxygen saturations were dropping despite use of her home oxygen. She is typically on 3 L via nasal cannula and they then increase this to 4 recently. Symptoms have progressively worsened since Sunday. No fevers. No change in her chronic productive cough. No chest pains. She does have a history of COPD, CHF. HPI per IM: 82 yo F with known COPD with baseline oxygen requirement and CHF that presents with acute shortness of breath. Patient normally on 3LPM NC and daughter has turned it up to 5LPM the last 2 days. Daughter noted 4# weight gain in the last 48hrs. No change in diet. States that she has been more fatigued and not getting up as much as she does at baseline. She has had a steady decline in activity over the last few months. She has been taking her breathing treatments with little to no improvement. They have not noticed her legs swelling more but daughter states that she has given 2-3 extra doses of lasix after calling PCP nursing. When I saw pt this evening she was sitting up in chair on nasal cannula and eating dinner. She did not really appear to be in any distress and daughter sitting in room stated she has had a 180 degree turn around. Even the nurse stated she was on 50% O2 and now only on 5L. Pt had episode overnight of O2 drop and got transferred up to ICU. She was admitted with Pneumonia and Pleural effusion. I actually saw the pt in 2020, when she had to have a chest tube placed (after thoracentesis) for pleural effusion and PTX, but that was on the left. Current problem is in right lung. Pt stated she was breathing much better and considered herself ok. Still having some SOB if she exerts herself. Allergies and Home Medications Allergies Coded Allergies: No Known Drug Allergies (Unverified , 03/20/19) Patient Home Medication List Home Medication List Reviewed: Yes Acetaminophen (Tylenol Extra Strength) 500 Mg Tablet, 500-1,000 MG PO Q8H PRN for PAIN-MILD (1-4), (Reported) Entered as Reported by: MATT CAMPA on 11/24/221133 Last Action: Reviewed Albuterol Sulfate (Ventolin Hfa) 90 Mcg Hfa.aer.ad, 2 PUFF INH Q6H PRN for SHORTNESS OF BREATH, (Reported) Entered as Reported by: MATT CAMPA on 11/24/221133 Last Action: Reviewed Allopurinol (Allopurinol) 100 Mg Tablet, 100 MG PO DAILY, (Reported) Entered as Reported by: DENISSE HUERTA on 03/20/191314 Last Action: Continued Atorvastatin Calcium (Atorvastatin Calcium) 80 Mg Tablet, 80 MG PO HS, (Reported) Entered as Reported by: DENISSE HUERTA on 03/20/191314 Last Action: Reviewed Calcitriol (Calcitriol) 0.25 Mcg Capsule, 0.25 MCG PO SUN,SUN, (Reported) Entered as Reported by: MATT CAMPA on 11/24/221133 Last Action: Reviewed Carvedilol (Carvedilol) 6.25 Mg Tablet, 6.25 MG PO BID, (Reported) Entered as Reported by: MATT CAMPA on 11/24/221133 Last Action: Continued Cetirizine HCl (Cetirizine HCl) 10 Mg Tablet, 10 MG PO DAILY, (Reported) Entered as Reported by: MATT CAMPA on 11/24/221133 Last Action: Reviewed Clonazepam (Clonazepam) 1 Mg Tablet, 1 MG PO HS, (Reported) Entered as Reported by: MATT CAMPA on 11/24/221133 Last Action: Reviewed Diltiazem HCl (Diltiazem 24Hr ER) 300 Mg Cap.er.24h, 300 MG PO HS, (Reported) Entered as Reported by: MATT CAMPA on 01/13/21 1359 Last Action: Continued Docusate Sodium (Stool Softener) 100 Mg Capsule, 100 MG PO BID PRN for CONSTIPATION-1ST LINE, (Reported) Entered as Reported by: MATT CAMPA on 11/24/221133 Last Action: Reviewed Ferrous Sulfate (Iron) 325 Mg (65 Mg Iron) Tablet, 325 MG PO BID, (Reported) Entered as Reported by: MATT CAMPA on 11/24/221133 Last Action: Reviewed Fluticasone/Umeclidin/Vilanter (Trelegy Ellipta 100-62.5-25) 100-62.5 Blst.w.dev, 1 PUFF INH HS, (Reported) Entered as Reported by: MATT CAMPA on 11/24/221133 Last Action: Reviewed Furosemide (Furosemide) 40 Mg Tablet, 40 MG PO DAILY, (Reported) Entered as Reported by: DENISSE HUERTA on 03/20/191314 Last Action: Reviewed Discontinued Medications Clonazepam (Clonazepam) 0.5 Mg Tablet, 0.5 MG PO HS, (Reported) Discontinued Reason: No Longer Taking Entered as Reported by: DENISSE HUERTA on 03/20/191314 Last Action: Discontinued Fluticasone/Salmeterol (Advair 250-50 Diskus) 1 Each Blst.w.dev, 1 EACH IH BID, (Reported) Discontinued Reason: No Longer Taking Entered as Reported by: MATT CAMPA on 01/13/21 1359 Last Action: Discontinued Loratadine (Loratadine) 10 Mg Tablet, 10 MG PO DAILY, (Reported) Discontinued Reason: No Longer Taking Entered as Reported by: DENISSE HUERTA on 03/20/191314 Last Action: Discontinued Nebivolol HCl (Bystolic) 10 Mg Tab, 10 MG PO HS, (Reported) Discontinued Reason: No Longer Taking Entered as Reported by: DENISES HUERTA on 03/20/191314 Last Action: Discontinued Prednisone (Prednisone) 20 Mg Tab, 20 MG PO DAILY Discontinued Reason: No Longer Taking Prescribed by: VIKY CHEATHAM on 01/21/21 131 Last Action: Discontinued Past Zshfocs-Ahsyrw-Xqafnq Hx Patient Social History Smoking Status: Current Everyday Smoker Type Used: Cigarettes 2nd Hand Smoke Exposure: No Recent Hopitalizations: No Alcohol Use?: No Seasonal Allergies Seasonal Allergies: Yes Surgeries History of Surgeries: Yes Surgeries: Appendectomy, Coronary Stent, Gallbladder, Tonsillectomy Respiratory History of Respiratory Disorde: Yes Respiratory Disorders: COPD Cardiovascular History of Cardiac Disorders: Yes Cardiac Disorders: Chronic Edema/Swelling, Coronary Artery Disease, Heart Att ack, Hypertension, Irregular Heartbeat Neurological History of Neurological Disord: Yes Neurological Disorders: Neuropathy, Stroke Genitourinary History of Genitourinary Disor: Yes Genitourinary Disorders: Renal Failure Gastrointestinal History of Gastrointestinal Di: No Gastrointestinal Disorders: Abdominal Hernia Musculoskeletal History of Musculoskeletal Dis: Yes Musculoskeletal Disorders: Gout Endocrine History of Endocrine Disorders: No HEENT History of HEENT Disorders: No Cancer History of Cancer: No Psychosocial History of Psychiatric Problem: Yes Behavioral Health Disorders: Anxiety Integumentary History of Skin or Integumenta: No Family Medical History Significant Family History: Heart Disease (Father [place] in his 60's) Review of Systems-General Constitutional: No chills; fever, malaise, weakness EENTM: No blurred vision, No double vision, No mouth swelling, No epistaxis Respiratory: cough, dyspnea on exertion; No hemoptysis; phlegm, short of breath Cardiovascular: No chest pain; Hx of Intervention, palpitations Gastrointestinal: abdominal pain (ventral hernia); No jaundice, No nausea, No vomiting Genitourinary: No dysuria, No frequency, No hematuria Musculoskeletal: back pain, joint pain, muscle stiffness, muscle cramps Skin: No change in color, No change in hair/nails Psychiatric/Neurological: Anxiety; Denies Seizure, Denies Tingling Physical Exam-General Problems Physical Exam Vital Signs Vital Signs - First Documented 11/23/22 11/24/22 12:54 05:18 Temp 37.4 Pulse 93 Resp 14 B/P (MAP) 191/103 (132) FiO2 40 Capillary Refill : General Appearance: mild distress, obese Eyes: Bilateral Eye PERRL, Bilateral Eye EOMI HEENT: pharynx normal; No scleral icterus (R), No scleral icterus (L) Neck: non-tender, supple Respiratory: no respiratory distress, decreased breath sounds (almost none on r ight side), accessory muscle use, crackles, rales (mostly right) Cardiovascular: regular rate, rhythm, systolic murmur Gastrointestinal: soft, no organomegaly, tenderness (mild over hernia with palpation), hernia (large ventral, incarcerated) Rectal: deferred Back: no CVA tenderness, no vertebral tenderness Extremities: no calf tenderness, pedal edema Neurologic/Psychiatric: alert, oriented x 3 Skin: normal color, warm/dry Lymphatic: no adenopathy (neck, axilla or groin) Data Review Labs Laboratory Tests 11/23/22 21:05: Glucometer 331H 11/24/22 05:29: Glucometer 175H 11/24/22 05:43: White Blood Count 10.5, Red Blood Count 4.53, Hemoglobin 13.4, Hematocrit 42, Mean Corpuscular Volume 93, Mean Corpuscular Hemoglobin 30, Mean Corpuscular Hemoglobin Concent 32, Red Cell Distribution Width 13.8, Platelet Count 212, Mean Platelet Volume 9.9, Immature Granulocyte % (Auto) 1, Neutrophils (%) (Auto) 91H, Lymphocytes (%) (Auto) 6L, Monocytes (%) (Auto) 2, Eosinophils (%) (Auto) 0, Basophils (%) (Auto) 0, Neutrophils # (Auto) 9.5H, Lymphocytes # (Auto) 0.7L, Monocytes # (Auto) 0.2, Eosinophils # (Auto) 0.0, Basophils # (Auto) 0.0, Immature Granulocyte # (Auto) 0.1, Neutrophils % (Manual) 92, Lymphocytes % (Manual) 6, Monocytes % (Manual) 2, Berkley Cells SLIGHT, Elliptocytes SLIGHT, Sodium Level 138, Potassium Level 4.1, Chloride Level 103, Carbon Dioxide Level 22, Anion Gap 13, Blood Urea Nitrogen 29H, Creatinine 1.74H , Estimat Glomerular Filtration Rate 29, BUN/Creatinine Ratio 17, Glucose Level 180H, Calcium Level 9.4, Corrected Calcium 10.0, Total Bilirubin 0.3, Aspartate Amino Transf (AST/SGOT) 9, Alanine Aminotransferase (ALT/SGPT) 16, Alkaline Phosphatase 138H, Total Protein 6.2L, Albumin 3.3 11/24/22 10:36: Glucometer 182H 11/24/22 15:46: Glucometer 228H Microbiology 11/23/22 Blood Culture - Preliminary, Resulted No growth Radiology Date of Exam:11/23/22 CT CHEST WO EXAMINATION: CT chest without contrast. TECHNIQUE: Multiple contiguous axial images were obtained through the chest without the use of intravenous contrast. All CT scans use one or more of the following dose optimizing techniques: automated exposure control, MA and/or KvP adjustment based on patient size and exam type or iterative reconstruction. HISTORY: Pleural effusion COMPARISON: 01/12/2020 FINDINGS: There is a moderate right pleural effusion. There is overlying consolidation suggestive of pneumonia. Lungs are emphysematous. There is septal line thickening in keeping with pulmonary edema. There is mild atelectasis in the left lower lobe. No pneumothorax. No suspicious nodules. There is no axillary or supraclavicular lymphadenopathy. There are unchanged mildly enlarged mediastinal lymph nodes measuring up to 1.2 cm. Many of the nodes are calcified. Heart size is normal. There are mild coronary artery calcifications. No pericardial effusion. Aorta is normal in caliber. Limited views of the upper abdomen show a large ventral hernia containing loops of bowel. Gallbladder is absent. There are no suspicious osseus lesions. IMPRESSION: 1. Moderate right pleural effusion with overlying consolidation most consistent with pneumonia. Dictated by: Dictated on workstation # [id number] Dict: 11/23/22 1414 Trans: 11/23/22 1633 CVB [id number] Interpreted by: SOHAIL QUARLES MD Electronically signed by: SOHAIL QUARLES MD 11/23/22 1637 Assessment/Plan Assessment/Plan Assessment/Plan (1) Acute and chronic respiratory failure with hypoxia (2) CAP (community acquired pneumonia) (3) Acute on chronic diastolic (congestive) heart failure (4) Pleural effusion (5) Renal failure (ARF), acute on chronic (6) HLD (hyperlipidemia) (7) HTN (hypertension) I reviewed the CT myself and discussed the case with Dr. Rose. Pt's O2 sat right now is 93% and she appears stable, not really working to breath. Daughter does not want to do a thoracentesis at this point and neither does the pt. I don't think she needs it at this time because her breathing is ok. She has gotten better since starting ABX and got one dose of Lasix. If breathing gets worse will discuss again with pt and family need for thoracentesis. Continue RT treatments, medications and monitor labs and CXR. All questions answered to pt and her family's satisfaction. RIKY MACHADO DO Nov 24, 2022 19:11
[2022-11-24] MEDS: ENOXAPARIN INJECTION 30 MG/0.3 ML SYR SC SCH (20:31)
[2022-11-24] MEDS: ACETAMINOPHEN 500 MG TAB (TYLENOL) PO PRN (21:40)
[2022-11-24] MEDS: clonazePAM 0.5 MG (KlonoPIN) TAB PO PRN (21:40)
[2022-11-24 22:10] VITALS: BP 159/96
[2022-11-25 02:23] VITALS: BP 133/77
[2022-11-25] MEDS: RT-ALBUTEROL/IPRATROPIUM 3 ML (DUONEB) VIAL IH SCH ×6 (02:25→22:23)
[2022-11-25 05:04] LABS: BASOPHILS % (AUTO) 0 % (0-10); EOSINOPHILS # (AUTO) 0.1 10^3/uL (0.0-0.3); EOSINOPHILS % (AUTO) 0 % (0-10); HEMATOCRIT 39 % (35-52); HEMOGLOBIN 12.4 g/dL (11.5-16.0); LYMPHOCYTES # (AUTO) 1.1 10^3/uL (1.0-4.0); LYMPHOCYTES % (AUTO) 8 % (12-44); MEAN CORPUSCULAR HEMOGLOBIN 30 pg (25-34); MEAN CORPUSCULAR HGB CONC 32 g/dL (32-36); MEAN CORPUSCULAR VOLUME 92 fL (80-99); MONOCYTES # (AUTO) 0.5 10^3/uL (0.0-1.0); MONOCYTES % (AUTO) 4 % (0-12); NEUTROPHILS # (AUTO) 11.2 10^3/uL (1.8-7.8); NEUTROPHILS % (AUTO) 87 % (42-75); PLATELET COUNT 228 10^3/uL (130-400); WHITE BLOOD COUNT 12.9 10^3/uL (4.3-11.0)
[2022-11-25 05:28] LABS: ALBUMIN 3.1 GM/DL (3.2-4.5); BILIRUBIN,TOTAL 0.3 MG/DL (0.1-1.0); CALCIUM 9.1 MG/DL (8.5-10.1); CREATININE SERUM 1.95 MG/DL (0.60-1.30); MAGNESIUM 2.2 MG/DL (1.6-2.4); PHOSPHORUS 4.7 MG/DL (2.3-4.7); POTASSIUM 4.6 MMOL/L (3.6-5.0); TOTAL PROTEIN 5.9 GM/DL (6.4-8.2)
[2022-11-25] MEDS ORDERED: POTASSIUM CL 10MEQ/50ML IVPB 50 ML IV SCH (06:00)
[2022-11-25] MEDS ORDERED: MAGNESIUM 1 GM/100 ML IVPB 100 ML IV SCH (06:00)
[2022-11-25] MEDS ORDERED: KCL 20 MEQ TAB (K-DUR) PO SCH (06:00)
[2022-11-25] MEDS ORDERED: NS IV 500 ML 500 ML IV PRN (06:00)
[2022-11-25 06:58] VITALS: BP 132/76
--- NOTE | 2022-11-25 07:22 | Progress Note - Hospitalist ---
Subjective HPI/CC On Admission Date Seen by Provider: Nov 25, 2022 Time Seen by Provider: 11:00 Subjective/Events-last exam Patient doing a lot better Moving to fourth floor Family at bedside Remains on oxygen supplementation Kidney function is same Review of Systems General: Fatigue, Malaise Focused Exam Lactate Level 11/23/22 13:00: Lactic Acid Level 1.56 Objective Exam Vital Signs Vital Signs Date Time Temp Pulse Resp B/P (MAP) Pulse Ox O2 Delivery O2 Flow Rate FiO2 11/25/22 19:57 36.4 82 18 147/81 (103) 91 Nasal Cannula 3.00 11/25/22 12:00 40 Capillary Refill : General Appearance: No Apparent Distress, WD/WN, Chronically ill Respiratory: Lungs Clear, Normal Breath Sounds Cardiovascular: Regular Rate, Rhythm Neurologic/Psychiatric: Alert, Oriented x3 Results/Procedures Lab Laboratory Tests 11/25/22 04:17 Patient resulted labs reviewed. Assessment/Plan Assessment and Plan Assess & Plan/Chief Complaint (1) Acute and chronic respiratory failure with hypoxia Status: Acute Assessment & Plan: - MAT protocol, prn treatments, will titrate oxygen as tolerated 11/24: Decompensation ON, moved to ICU for closer evaluation, Will consult Dr Romeo to evaluate for thorocentesis (2) CAP (community acquired pneumonia) Status: Acute Assessment & Plan: - Cefedinir BID 11/24: Escalated to IV antibiotics since moved to ICU Qualifiers: Qualified Codes: J18.9 - Pneumonia, unspecified organism (3) Acute on chronic diastolic (congestive) heart failure Status: Acute Assessment & Plan: - Elevated BNP, will give 1 dose of lasix today, Strict I/Os, consult cardiology to see patient in AM 11/24: mild decompensation in CHF but I do not feel this is the root cause, consult cardiology, appreciate recommendations (4) Pleural effusion Status: Acute (5) Renal failure (ARF), acute on chronic Status: Acute Assessment & Plan: - Will continue to monitor closely with diuresis Qualifiers: Qualified Codes: N17.9 - Acute kidney failure, unspecified; N18.32 - Chronic kidney disease, stage 3b (6) HLD (hyperlipidemia) Status: Chronic Qualifiers: Qualified Codes: E78.2 - Mixed hyperlipidemia (7) HTN (hypertension) Status: Chronic Qualifiers: Qualified Codes: I10 - Essential (primary) hypertension (8) DVT prophylaxis Status: Acute Assessment & Plan: Lovenox Critical Care Critically Ill Patient VICKY CHAVIRA DO Nov 25, 2022 07:22
[2022-11-25] MEDS: predniSONE 20 MG TAB PO SCH (08:23)
[2022-11-25] MEDS: FUROSEMIDE 40 MG/4 ML INJ (LASIX) IVP SCH (08:24)
[2022-11-25] MEDS: ALLOPURINOL 100 MG (ZYLOPRIM) TAB PO SCH (08:24)
[2022-11-25] MEDS ORDERED: DOCUSATE SODIUM 100 MG (COLACE) CAP PO PRN (12:00)
--- NOTE | 2022-11-25 12:24 | Progress Note - Surgery ---
Subjective Time Seen by a Provider: 10:24 Subjective/Events-last exam Pt seen and examined, sitting up in chair. Nurse states she used BiPap all night and did well, now on only 4L NC. Pt stated her breathing was better. Review of Systems Pulmonary: Dyspnea; No Cough Cardiovascular: No: Chest Pain, Palpitations Gastrointestinal: No: Nausea, Vomiting, Abdominal Pain Focused Exam Lactate Level 11/23/22 13:00: Lactic Acid Level 1.56 Objective Exam Vital Signs Date Time Temp Pulse Resp B/P (MAP) Pulse Ox O2 Delivery O2 Flow Rate FiO2 11/25/22 12:00 81 23 151/87 (107) 89 Nasal Cannula 5.00 11/25/22 11:00 74 25 95 Nasal Cannula 5.00 11/25/22 10:00 82 18 134/94 (107) 93 Nasal Cannula 5.00 11/25/22 09:23 91 Nasal Cannula 5.00 11/25/22 09:00 75 14 96 Nasal Cannula 5.00 11/25/22 08:00 93 NIV Bilevel 40 11/25/22 08:00 84 23 156/90 (126) 93 Nasal Cannula 5.00 11/25/22 07:00 36.4 82 22 126/70 (88) 93 Nasal Cannula 5.00 11/25/22 07:00 75 11/25/22 07:00 74 17 94 Nasal Cannula 5.00 11/25/22 06:58 79 12 95 40.00 11/25/22 06:00 69 17 132/76 (94) 95 Nasal Cannula 5.00 11/25/22 05:00 72 20 94 Nasal Cannula 5.00 11/25/22 04:00 64 12 124/65 (84) 94 Nasal Cannula 5.00 11/25/22 04:00 93 NIV Bilevel 40 11/25/22 03:00 69 13 93 Nasal Cannula 5.00 11/25/22 02:23 74 12 97 40.00 11/25/22 02:00 81 16 133/77 (95) 93 Nasal Cannula 5.00 11/25/22 01:00 82 11/25/22 01:00 82 18 94 Nasal Cannula 5.00 11/25/22 00:00 85 12 138/76 (96) 95 Nasal Cannula 5.00 11/24/22 23:59 95 NIV Bilevel 40 11/24/22 23:00 87 19 96 Nasal Cannula 5.00 11/24/22 22:10 90 24 99 50.00 11/24/22 22:00 89 19 159/96 (117) 98 Nasal Cannula 5.00 11/24/22 21:00 97 23 95 Nasal Cannula 5.00 11/24/22 20:00 97 21 158/85 (109) 95 Nasal Cannula 5.00 11/24/22 20:00 Nasal Cannula 5.00 11/24/22 19:00 98 17 94 Nasal Cannula 5.00 11/24/22 19:00 103 11/24/22 18:22 97 Nasal Cannula 3.00 11/24/22 18:00 Nasal Cannula 5.00 11/24/22 18:00 98 30 156/95 (115) 92 11/24/22 18:00 35.7 94 30 128/85 (99) 92 Nasal Cannula 5.00 11/24/22 16:00 98 26 130/80 (97) 95 Nasal Cannula 5.50 11/24/22 16:00 Nasal Cannula 5.00 11/24/22 16:00 105 41 130/80 (101) 86 OxyMask 10.00 11/24/22 15:58 35.9 11/24/22 15:00 96 28 93 OxyMask 10.00 11/24/22 14:56 90 OxyMask 6.00 11/24/22 14:00 92 20 156/88 (120) 90 OxyMask 10.00 11/24/22 14:00 Nasal Cannula 5.00 11/24/22 13:00 96 20 90 OxyMask 10.00 11/24/22 12:27 90 I & O 11/25/22 07:00 Intake Total 1130 ml Balance 1130 ml Capillary Refill : General Appearance: No Apparent Distress, Chronically ill Respiratory: No Accessory Muscle Use, No Respiratory Distress, Decreased Breath Sounds (almost none on right), Wheezing (left) Cardiovascular: Regular Rate, Rhythm, Systolic Murmur Gastrointestinal: soft, no organomegaly, tenderness (mild over hernia with palpation), hernia (large ventral, incarcerated) Results Lab Laboratory Tests 11/24/22 15:46: Glucometer 228H 11/24/22 21:44: Glucometer 222H 11/25/22 04:17: White Blood Count 12.9H, Red Blood Count 4.18, Hemoglobin 12.4, Hematocrit 39, Mean Corpuscular Volume 92, Mean Corpuscular Hemoglobin 30, Mean Corpuscular Hemoglobin Concent 32, Red Cell Distribution Width 14.3, Platelet Count 228, Mean Platelet Volume 10.0, Immature Granulocyte % (Auto) 1, Neutrophils (%) (Auto) 87H, Lymphocytes (%) (Auto) 8L, Monocytes (%) (Auto) 4, Eosinophils (%) (Auto) 0, Basophils (%) (Auto) 0, Neutrophils # (Auto) 11.2H, Lymphocytes # (Auto) 1.1, Monocytes # (Auto) 0.5, Eosinophils # (Auto) 0.1, Basophils # (Auto) 0.0, Immature Granulocyte # (Auto) 0.1, Sodium Level 138, Potassium Level 4.6, Chloride Level 103, Carbon Dioxide Level 23, Anion Gap 12, Blood Urea Nitrogen 37H, Creatinine 1.95H, Estimat Glomerular Filtration Rate 25, BUN/Creatinine Ratio 19, Glucose Level 131H, Calcium Level 9.1, Corrected Calcium 9.8, Phosphorus Level 4.7, Magnesium Level 2.2, Total Bilirubin 0.3, Aspartate Amino Transf (AST/SGOT) 14, Alanine Aminotransferase (ALT/SGPT) 22, Alkaline Phosphatase 121, Total Protein 5.9L, Albumin 3.1L 11/25/22 11:32: Glucometer 121H Microbiology 11/24/22 MRSA Screen - Final, Complete MRSA not isolated 11/23/22 Blood Culture - Preliminary, Resulted No growth Assessment/Plan Assessment/Plan Assessment/Plan (1) Acute and chronic respiratory failure with hypoxia (2) CAP (community acquired pneumonia) (3) Acute on chronic diastolic (congestive) heart failure (4) Pleural effusion (5) Renal failure (ARF), acute on chronic (6) HLD (hyperlipidemia) (7) HTN (hypertension) Pt appears to be improving, pulse ox was 96%. Will continue to hold off on thoracentesis. [facility] and [facility]. RIKY MACHADO DO Nov 25, 2022 12:24
[2022-11-25] MEDS: cefTRIAXone 1 GM/NS 50 ML IVPB IV SCH ×2 (12:55)
--- NOTE | 2022-11-25 16:29 | Progress Note - Cardiology ---
Cardiology SOAP Progress Note Subjective: No cp or palp or syncope Shortness of breath improving No n/v/d No focal weakness Gen weakness present Objective: I&O/Vital Signs 11/25/22 11/25/22 11/25/22 11/25/22 05:00 06:00 06:58 07:00 Pulse 72 69 79 74 Resp 20 17 12 17 B/P (MAP) 132/76 (94) Pulse Ox 94 95 95 94 O2 Delivery Nasal Cannula Nasal Cannula Nasal Cannula O2 Flow Rate 5.00 5.00 40.00 5.00 11/25/22 11/25/22 11/25/22 11/25/22 07:00 07:00 08:00 08:00 Temp 36.4 Pulse 75 82 84 Resp 22 23 B/P (MAP) 126/70 (88) 156/90 (126) Pulse Ox 93 93 93 O2 Delivery Nasal Cannula Nasal Cannula NIV Bilevel O2 Flow Rate 5.00 5.00 FiO2 40 11/25/22 11/25/22 11/25/22 11/25/22 09:00 09:23 10:00 11:00 Pulse 75 82 74 Resp 14 18 25 B/P (MAP) 134/94 (107) Pulse Ox 96 91 93 95 O2 Delivery Nasal Cannula Nasal Cannula Nasal Cannula Nasal Cannula O2 Flow Rate 5.00 5.00 5.00 5.00 11/25/22 11/25/22 11/25/22 11/25/22 12:00 12:00 12:43 13:00 Pulse 81 8 78 Resp 23 B/P (MAP) 151/87 (107) Pulse Ox 89 93 O2 Delivery Nasal Cannula NIV Bilevel Nasal Cannula O2 Flow Rate 5.00 4.00 FiO2 40 11/25/22 11/25/22 11/25/22 11/25/22 14:00 15:00 15:29 16:00 Pulse 84 82 80 Resp 23 20 19 B/P (MAP) 144/87 (106) 146/84 (104) 143/80 (107) Pulse Ox 98 99 96 93 O2 Delivery Nasal Cannula Nasal Cannula Nasal Cannula O2 Flow Rate 3.00 3.00 3.50 3.00 11/25/22 00:00 Intake Total 650 ml Balance 650 ml Weight (Pounds): 205 Weight (Ounces): 8.0 Constitutional: AAO x 3, well-developed, well-nourished Respiratory: No accessory muscle use; chest expansion is symmetric, chest is bilaterally symmetric, other (fair air entry, diminished at the bases) Cardiovascular: regular rate-rhythm, S1 and S2, systolic murmur (soft CRISTIANO at card base) Gastrointestional: No tender; soft; No guarding, No rebound; audible bowel sounds Extremities: swelling (mild to mod, both legs); No clubbing, No cyanosis Neurologic/Psychiatric: oriented x 3, other (moves all limbs equally) Skin: normal color, warm/dry; No cyanosis Results/Procedures: Labs Laboratory Tests 11/24/22 21:44: Glucometer 222H 11/25/22 04:17: White Blood Count 12.9H, Red Blood Count 4.18, Hemoglobin 12.4, Hematocrit 39, Mean Corpuscular Volume 92, Mean Corpuscular Hemoglobin 30, Mean Corpuscular Hemoglobin Concent 32, Red Cell Distribution Width 14.3, Platelet Count 228, Mean Platelet Volume 10.0, Immature Granulocyte % (Auto) 1, Neutrophils (%) (Auto) 87H, Lymphocytes (%) (Auto) 8L, Monocytes (%) (Auto) 4, Eosinophils (%) (Auto) 0, Basophils (%) (Auto) 0, Neutrophils # (Auto) 11.2H, Lymphocytes # (Auto) 1.1, Monocytes # (Auto) 0.5, Eosinophils # (Auto) 0.1, Basophils # (Auto) 0.0, Immature Granulocyte # (Auto) 0.1, Sodium Level 138, Potassium Level 4.6, Chloride Level 103, Carbon Dioxide Level 23, Anion Gap 12, Blood Urea Nitrogen 37H, Creatinine 1.95H, Estimat Glomerular Filtration Rate 25, BUN/Creatinine Ratio 19, Glucose Level 131H, Calcium Level 9.1, Corrected Calcium 9.8, Phosphorus Level 4.7, Magnesium Level 2.2, Total Bilirubin 0.3, Aspartate Amino Transf (AST/SGOT) 14, Alanine Aminotransferase (ALT/SGPT) 22, Alkaline Phosphatase 121, Total Protein 5.9L, Albumin 3.1L 11/25/22 11:32: Glucometer 121H Microbiology 11/24/22 MRSA Screen - Final, Complete MRSA not isolated 11/23/22 Blood Culture - Preliminary, Resulted No growth Laboratory Tests 11/24/22 05:43 11/25/22 04:17 A/P: Assessment: Ac exac of COPD due to community-acquired pneumonia Ac diastolic CHF - Echo of Feb 21, 2021: LVEF 60-65%. Grade 2 diastolic dysfunction. LA mildly dilated. Mod calcified mitral valve with mild MR. PASP 50-55 mmHg H/o pleural eff - mod, R pleural eff during this admission - large, parapneumonic, left-sided effusion, s/p thoracentesis in Dec 2020 - left-sided pleural effusion in January 2022 - tx with thoracentesis and pleur-x catheter placement x 8 weeks COPD - due to chronic smoking of cigarettes Obesity - BMI 39.5 - Obesity-hypovent with RALF, treated with CPAP Pulm hypertension - likely due to obesity-hypoventilation and RALF, followed by her an/syq 13 nav/c2 operator (Dr. 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 - S/p R CEA in [place], [place]. Pt does not recall surgeon or year of surgery. - Carotid u/s of September 18, 2019 showed mild bilat dz Plan: * Diuretic therapy as needed and as tolerated for CHF * Med svce managing pneumonia * Monitor labs * Advised to refrain from tobacco use * Echo [facility] ALEXIS [facility] Nov 25, 2022 16:29
[2022-11-25 16:41] VITALS: BP 140/71
[2022-11-25 19:57] VITALS: BP 147/81
[2022-11-25] MEDS: ENOXAPARIN INJECTION 30 MG/0.3 ML SYR SC SCH (20:05)
[2022-11-25] MEDS ORDERED: NON-FORMULARY MEDICATION 1 EA EA (Fluticasone/Umeclidin/Vilanter (Trelegy Ellipta 100-62.5 INH SCH (21:00)
[2022-11-25] MEDS: FERROUS SULF 325 MG (IRON) TAB PO SCH (21:45)
[2022-11-25] MEDS: clonazePAM 1 MG (KlonoPIN) TAB PO SCH (21:52)
[2022-11-25 23:45] VITALS: BP 134/68
[2022-11-26] MEDS: RT-ALBUTEROL/IPRATROPIUM 3 ML (DUONEB) VIAL IH SCH ×6 (02:52→22:29)
[2022-11-26 04:04] VITALS: BP 132/67
[2022-11-26 05:27] LABS: BASOPHILS % (AUTO) 0 % (0-10); EOSINOPHILS % (AUTO) 0 % (0-10); HEMATOCRIT 38 % (35-52); LYMPHOCYTES % (AUTO) 10 % (12-44); MEAN CORPUSCULAR HEMOGLOBIN 30 pg (25-34); MEAN CORPUSCULAR HGB CONC 32 g/dL (32-36); MEAN CORPUSCULAR VOLUME 92 fL (80-99); MEAN PLATELET VOLUME 9.6 fL (9.0-12.2); MONOCYTES # (AUTO) 0.4 10^3/uL (0.0-1.0); MONOCYTES % (AUTO) 5 % (0-12); NEUTROPHILS % (AUTO) 84 % (42-75); PLATELET COUNT 205 10^3/uL (130-400); WHITE BLOOD COUNT 9.5 10^3/uL (4.3-11.0)
[2022-11-26 05:41] LABS: ALBUMIN 2.9 GM/DL (3.2-4.5); BILIRUBIN,TOTAL 0.3 MG/DL (0.1-1.0); CALCIUM 8.8 MG/DL (8.5-10.1); CREATININE SERUM 1.82 MG/DL (0.60-1.30); MAGNESIUM 2.2 MG/DL (1.6-2.4); POTASSIUM 4.8 MMOL/L (3.6-5.0); TOTAL PROTEIN 5.4 GM/DL (6.4-8.2)
[2022-11-26] MEDS: ACETAMINOPHEN 500 MG TAB (TYLENOL) PO PRN ×2 (06:21→14:27)
--- NOTE | 2022-11-26 07:02 | Progress Note - Hospitalist ---
Subjective HPI/CC On Admission Date Seen by Provider: Nov 26, 2022 Time Seen by Provider: 11:00 Subjective/Events-last exam Patient doing a lot better Back to baseline oxygen supplementation Hesitant about going home it appears We will have therapy evaluate her and evaluate if she needs any sort of rehab Review of Systems Pulmonary: Dyspnea Focused Exam Lactate Level Objective Exam Vital Signs Vital Signs Date Time Temp Pulse Resp B/P (MAP) Pulse Ox O2 Delivery O2 Flow Rate FiO2 11/26/22 16:28 36.3 87 20 164/78 (106) 91 Nasal Cannula 3.00 11/25/22 12:00 40 Capillary Refill : General Appearance: No Apparent Distress, WD/WN, Chronically ill Respiratory: Normal Breath Sounds, Wheezing Cardiovascular: Regular Rate, Rhythm Neurologic/Psychiatric: Alert, Oriented x3, No Motor/Sensory Deficits, Normal Mood/Affect Results/Procedures Lab Laboratory Tests 11/26/22 05:11 Patient resulted labs reviewed. Assessment/Plan Assessment and Plan Assess & Plan/Chief Complaint (1) Acute and chronic respiratory failure with hypoxia Status: Acute Assessment & Plan: - MAT protocol, prn treatments, will titrate oxygen as tolerated 11/24: Decompensation ON, moved to ICU for closer evaluation, Will consult Dr Romeo to evaluate for thorocentesis (2) CAP (community acquired pneumonia) Status: Acute Assessment & Plan: - Cefedinir BID 11/24: Escalated to IV antibiotics since moved to ICU Qualifiers: Qualified Codes: J18.9 - Pneumonia, unspecified organism (3) Acute on chronic diastolic (congestive) heart failure Status: Acute Assessment & Plan: - Elevated BNP, will give 1 dose of lasix today, Strict I/Os, consult cardiology to see patient in AM 11/24: mild decompensation in CHF but I do not feel this is the root cause, consult cardiology, appreciate recommendations (4) Pleural effusion Status: Acute (5) Renal failure (ARF), acute on chronic Status: Acute Assessment & Plan: - Will continue to monitor closely with diuresis Qualifiers: Qualified Codes: N17.9 - Acute kidney failure, unspecified; N18.32 - Chronic kidney disease, stage 3b (6) HLD (hyperlipidemia) Status: Chronic Qualifiers: Qualified Codes: E78.2 - Mixed hyperlipidemia (7) HTN (hypertension) Status: Chronic Qualifiers: Qualified Codes: I10 - Essential (primary) hypertension (8) DVT prophylaxis Status: Acute Assessment & Plan: Lovenox Critical Care Critically Ill Patient VICKY CHAVIRA DO Nov 26, 2022 07:02
[2022-11-26 07:38] VITALS: BP 137/66
[2022-11-26] MEDS ORDERED: FLUTICASONE/VILANTEROL 100 MCG 14'S (BREO) IH SCH (08:00)
[2022-11-26] MEDS ORDERED: TIOTROPIUM INH 4 GM (SPIRIVA Respimat) IH SCH (08:00)
[2022-11-26] MEDS: ALLOPURINOL 100 MG (ZYLOPRIM) TAB PO SCH (09:13)
[2022-11-26] MEDS: predniSONE 20 MG TAB PO SCH (09:13)
[2022-11-26] MEDS: FERROUS SULF 325 MG (IRON) TAB PO SCH ×2 (09:13→20:12)
[2022-11-26] MEDS: FUROSEMIDE 40 MG/4 ML INJ (LASIX) IVP SCH (09:14)
[2022-11-26] MEDS: LORATADINE (CLARITIN) 10 MG TAB PO SCH (09:14)
[2022-11-26 11:13] VITALS: BP 137/65
--- NOTE | 2022-11-26 14:09 | Progress Note - Surgery ---
Subjective Time Seen by a Provider: 13:34 Subjective/Events-last exam Pt seen and examined, sitting up in chair. She does not appear to be in any distress. States she is having a little bit of trouble breathing. Review of Systems Pulmonary: Dyspnea; No Cough Cardiovascular: No: Chest Pain, Palpitations Gastrointestinal: No: Nausea, Vomiting, Abdominal Pain Objective Exam Vital Signs Date Time Temp Pulse Resp B/P (MAP) Pulse Ox O2 Delivery O2 Flow Rate FiO2 11/26/22 11:13 36.4 78 20 137/65 (89) 95 Nasal Cannula 4.00 11/26/22 10:54 92 Nasal Cannula 4.00 11/26/22 09:15 Nasal Cannula 3.00 11/26/22 08:01 Nasal Cannula 4.00 11/26/22 08:00 Nasal Cannula 4.00 11/26/22 07:51 95 Nasal Cannula 6.00 11/26/22 07:38 36.3 75 18 137/66 (89) 94 Nasal Cannula 6.00 11/26/22 04:04 36.0 81 16 132/67 (88) 93 NIV Bilevel 3.00 3.00 11/26/22 02:53 75 16 90 40.00 11/25/22 23:45 36.0 79 16 134/68 (90) 95 NIV Bilevel 11/25/22 22:23 82 26 91 40.00 11/25/22 21:00 Nasal Cannula 3.00 11/25/22 19:57 36.4 82 18 147/81 (103) 91 Nasal Cannula 3.00 11/25/22 19:12 94 Nasal Cannula 3.00 11/25/22 16:41 36.9 77 18 140/71 (94) 92 Nasal Cannula 3.00 11/25/22 16:00 80 19 143/80 (107) 93 Nasal Cannula 3.00 11/25/22 15:29 96 Nasal Cannula 3.50 11/25/22 15:00 82 20 146/84 (104) 99 3.00 Capillary Refill : General Appearance: No Apparent Distress, Chronically ill, Obese Respiratory: No Respiratory Distress, Accessory Muscle Use, Decreased Breath Sounds (right ), Rales Cardiovascular: Regular Rate, Rhythm Gastrointestinal: soft, no organomegaly, tenderness (mild over hernia with palpation), hernia (large ventral, incarcerated) Neurologic/Psychiatric: Alert, Oriented x3 Results Lab Laboratory Tests 11/25/22 16:39: Glucometer 213H 11/25/22 20:37: Glucometer 240H 11/26/22 05:11: White Blood Count 9.5, Red Blood Count 4.07, Hemoglobin 12.0, Hematocrit 38, Mean Corpuscular Volume 92, Mean Corpuscular Hemoglobin 30, Mean Corpuscular Hemoglobin Concent 32, Red Cell Distribution Width 14.2, Platelet Count 205, Mean Platelet Volume 9.6, Immature Granulocyte % (Auto) 1, Neutrophils (%) (Auto) 84H, Lymphocytes (%) (Auto) 10L, Monocytes (%) (Auto) 5, Eosinophils (%) (Auto) 0, Basophils (%) (Auto) 0, Neutrophils # (Auto) 8.0H, Lymphocytes # (Auto) 1.0, Monocytes # (Auto) 0.4, Eosinophils # (Auto) 0.0, Basophils # (Auto) 0.0, Immature Granulocyte # (Auto) 0.1, Sodium Level 138, Potassium Level 4.8, Chloride Level 102, Carbon Dioxide Level 24, Anion Gap 12, Blood Urea Nitrogen 42H, Creatinine 1.82H, Estimat Glomerular Filtration Rate 27, BUN/Creatinine Ratio 23, Glucose Level 132H, Calcium Level 8.8, Corrected Calcium 9.7, Magnesium Level 2.2, Total Bilirubin 0.3, Aspartate Amino Transf (AST/SGOT) 11, Alanine Aminotransferase (ALT/SGPT) 22, Alkaline Phosphatase 106, Total Protein 5.4L, Albumin 2.9L 11/26/22 05:43: Glucometer 144H 11/26/22 11:15: Glucometer 141H Microbiology 11/24/22 MRSA Screen - Final, Complete MRSA not isolated 11/23/22 Blood Culture - Preliminary, Resulted No growth Assessment/Plan Assessment/Plan Assessment/Plan (1) Acute and chronic respiratory failure with hypoxia - improved (2) CAP (community acquired pneumonia) -on ABX, which seem to be helping (3) Acute on chronic diastolic (congestive) heart failure (4) Pleural effusion (5) Renal failure (ARF), acute on chronic (6) HLD (hyperlipidemia) (7) HTN (hypertension) Pt appears stable and therefore will continue to hold off on thoracentesis. [facility] and home meds. I will sign off and reconsult if respiratory status changes. RIKY MACHADO DO Nov 26, 2022 14:09
--- NOTE | 2022-11-26 14:45 | Progress Note - Cardiology ---
Cardiology SOAP Progress Note Subjective: Gen weakness and malaise present Shortness of breath only modestly improved No cp or palp or syncope No n/v/d No focal weakness Objective: I&O/Vital Signs 11/26/22 11/26/22 11/26/22 11/26/22 02:53 04:04 07:38 07:51 Temp 36.0 36.3 Pulse 75 81 75 Resp 16 16 18 B/P (MAP) 132/67 (88) 137/66 (89) Pulse Ox 90 93 94 95 O2 Delivery NIV Bilevel Nasal Cannula Nasal Cannula O2 Flow Rate 40.00 3.00 6.00 6.00 3.00 11/26/22 11/26/22 11/26/22 11/26/22 08:00 08:01 09:15 10:54 Pulse Ox 92 O2 Delivery Nasal Cannula Nasal Cannula Nasal Cannula Nasal Cannula O2 Flow Rate 4.00 4.00 3.00 4.00 11/26/22 11:13 Temp 36.4 Pulse 78 Resp 20 B/P (MAP) 137/65 (89) Pulse Ox 95 O2 Delivery Nasal Cannula O2 Flow Rate 4.00 Weight (Pounds): 205 Weight (Ounces): 8.0 Constitutional: AAO x 3, well-developed, well-nourished Respiratory: No accessory muscle use; chest expansion is symmetric, chest is bilaterally symmetric, other (fair air entry, diminished at the bases) Cardiovascular: regular rate-rhythm, S1 and S2, systolic murmur (soft CRISTIANO at card base) Gastrointestional: No tender; soft; No guarding, No rebound; audible bowel sounds Extremities: swelling (mild to mod, both legs); No clubbing, No cyanosis Neurologic/Psychiatric: oriented x 3, other (moves all limbs equally) Skin: normal color, warm/dry; No cyanosis Results/Procedures: Labs Laboratory Tests 11/25/22 16:39: Glucometer 213H 11/25/22 20:37: Glucometer 240H 11/26/22 05:11: White Blood Count 9.5, Red Blood Count 4.07, Hemoglobin 12.0, Hematocrit 38, Mean Corpuscular Volume 92, Mean Corpuscular Hemoglobin 30, Mean Corpuscular Hemoglobin Concent 32, Red Cell Distribution Width 14.2, Platelet Count 205, Mean Platelet Volume 9.6, Immature Granulocyte % (Auto) 1, Neutrophils (%) (Auto) 84H, Lymphocytes (%) (Auto) 10L, Monocytes (%) (Auto) 5, Eosinophils (%) (Auto) 0, Basophils (%) (Auto) 0, Neutrophils # (Auto) 8.0H, Lymphocytes # (Auto) 1.0, Monocytes # (Auto) 0.4, Eosinophils # (Auto) 0.0, Basophils # (Auto) 0.0, Immature Granulocyte # (Auto) 0.1, Sodium Level 138, Potassium Level 4.8, Chloride Level 102, Carbon Dioxide Level 24, Anion Gap 12, Blood Urea Nitrogen 42H, Creatinine 1.82H, Estimat Glomerular Filtration Rate 27, BUN/Creatinine Ratio 23, Glucose Level 132H, Calcium Level 8.8, Corrected Calcium 9.7, Magnesium Level 2.2, Total Bilirubin 0.3, Aspartate Amino Transf (AST/SGOT) 11, Alanine Aminotransferase (ALT/SGPT) 22, Alkaline Phosphatase 106, Total Protein 5.4L, Albumin 2.9L 11/26/22 05:43: Glucometer 144H 11/26/22 11:15: Glucometer 141H Microbiology 11/24/22 MRSA Screen - Final, Complete MRSA not isolated 11/23/22 Blood Culture - Preliminary, Resulted No growth Laboratory Tests 11/25/22 04:17 A/P: Assessment: Ac exac of COPD due to community-acquired pneumonia Ac diastolic CHF - Echo of Feb 21, 2021: LVEF 60-65%. Grade 2 diastolic dysfunction. LA mildly dilated. Mod calcified mitral valve with mild MR. PASP 50-55 mmHg - Echo on 11-26-22: LVEF 55-60%, grade 2 choi dysfunction, mildly dilated LA, mod MAC, mild MR, PASP 55-60 mmHg H/o pleural eff - mod, R pleural eff during this admission - large, parapneumonic, left-sided effusion, s/p thoracentesis in Dec 2020 - left-sided pleural effusion in January 2022 - tx with thoracentesis and pleur-x catheter placement x 8 weeks COPD - due to chronic smoking of cigarettes Obesity - BMI 39.5 - Obesity-hypovent with RALF, treated with CPAP Pulm hypertension - likely due to obesity-hypoventilation and RALF, followed by her patient registration clerk (Dr. Pardo) CAD - Card cath of 03/25/19: mild to mod CAD, mild elevation of LVEDP CKD 3b - 4 - managed by her shotgun shell assembly machine operator Hypertension - by history Hyperlipidemia - by history H/o chronic tobacco use - approx 40 pack-years - currently down to 3-4 cigs/day Ventral abdominal hernia - manged by PCP Carotid arterial disease. - S/p R CEA in [place], [place]. Pt does not recall surgeon or year of surgery. - Carotid u/s of September 18, 2019 showed mild bilat dz Plan: * Diuretic therapy as needed and as tolerated for CHF * Med svce managing pneumonia * Monitor labs KARINE ALEXIS MD FACP [facility] CCDS Nov 26, 2022 14:45
[2022-11-26 16:28] VITALS: BP 164/78
[2022-11-26] MEDS: ENOXAPARIN INJECTION 30 MG/0.3 ML SYR SC SCH (20:12)
[2022-11-26] MEDS: clonazePAM 1 MG (KlonoPIN) TAB PO SCH (20:12)
[2022-11-26 20:16] VITALS: BP 168/80
[2022-11-26 23:29] VITALS: BP 162/74
[2022-11-27] MEDS: RT-ALBUTEROL/IPRATROPIUM 3 ML (DUONEB) VIAL IH SCH ×3 (02:44→10:37)
[2022-11-27 04:33] VITALS: BP 132/77
[2022-11-27 06:03] LABS: BASOPHILS % (AUTO) 0 % (0-10); EOSINOPHILS % (AUTO) 0 % (0-10); HEMATOCRIT 39 % (35-52); HEMOGLOBIN 12.5 g/dL (11.5-16.0); LYMPHOCYTES # (AUTO) 0.8 10^3/uL (1.0-4.0); LYMPHOCYTES % (AUTO) 9 % (12-44); MEAN CORPUSCULAR HEMOGLOBIN 30 pg (25-34); MEAN CORPUSCULAR HGB CONC 33 g/dL (32-36); MEAN CORPUSCULAR VOLUME 92 fL (80-99); MEAN PLATELET VOLUME 9.8 fL (9.0-12.2); MONOCYTES # (AUTO) 0.4 10^3/uL (0.0-1.0); MONOCYTES % (AUTO) 4 % (0-12); NEUTROPHILS # (AUTO) 7.9 10^3/uL (1.8-7.8); NEUTROPHILS % (AUTO) 85 % (42-75); PLATELET COUNT 204 10^3/uL (130-400); WHITE BLOOD COUNT 9.3 10^3/uL (4.3-11.0)
[2022-11-27 06:34] LABS: ALBUMIN 3.2 GM/DL (3.2-4.5); BILIRUBIN,TOTAL 0.4 MG/DL (0.1-1.0); CALCIUM 8.9 MG/DL (8.5-10.1); CREATININE SERUM 2.21 MG/DL (0.60-1.30); MAGNESIUM 2.3 MG/DL (1.6-2.4); POTASSIUM 4.7 MMOL/L (3.6-5.0); TOTAL PROTEIN 5.8 GM/DL (6.4-8.2)
[2022-11-27 07:55] VITALS: BP 148/80
[2022-11-27] MEDS ORDERED: FLUTICASONE/VILANTEROL 100 MCG 14'S (BREO) IH SCH (08:00)
[2022-11-27] MEDS ORDERED: TIOTROPIUM INH 4 GM (SPIRIVA Respimat) IH SCH (08:00)
[2022-11-27] MEDS: FUROSEMIDE 40 MG/4 ML INJ (LASIX) IVP SCH (08:16)
[2022-11-27] MEDS: FERROUS SULF 325 MG (IRON) TAB PO SCH (08:16)
[2022-11-27] MEDS: ALLOPURINOL 100 MG (ZYLOPRIM) TAB PO SCH (08:16)
[2022-11-27] MEDS: predniSONE 20 MG TAB PO SCH (08:16)
[2022-11-27] MEDS: LORATADINE (CLARITIN) 10 MG TAB PO SCH (08:16)
[2022-11-27] MEDS: ACETAMINOPHEN 500 MG TAB (TYLENOL) PO PRN (08:16)
[2022-11-27] MEDS ORDERED: CALCITRIOL 0.25 MCG (ROCALTROL) CAPSULE PO SCH (09:00)
[2022-11-27] MEDS ORDERED: CEFDINIR 300 MG (OMNICEF) CAP PO SCH (09:00)
--- NOTE | 2022-11-27 10:20 | Progress Note - Cardiology ---
Cardiology SOAP Progress Note Subjective: Sitting up in recliner at the bedside Just ambulated with PT C/O WINTER No c/o CP or palpitations Objective: I&O/Vital Signs 11/26/22 11/26/22 11/27/22 11/27/22 22:29 23:29 02:44 04:33 Temp 36.4 36.4 Pulse 77 79 77 77 Resp 22 26 22 23 B/P (MAP) 162/74 (103) 132/77 (95) Pulse Ox 94 94 94 95 O2 Delivery NIV Bilevel NIV Bilevel O2 Flow Rate 40.00 40.00 40.00 40.00 11/27/22 11/27/22 11/27/22 11/27/22 07:00 07:00 07:01 07:55 Temp 36.4 Pulse 73 Resp 20 B/P (MAP) 148/80 (102) Pulse Ox 92 91 O2 Delivery Nasal Cannula Nasal Cannula Nasal Cannula Nasal Cannula O2 Flow Rate 4.00 4.00 4.00 3.00 11/27/22 08:33 O2 Delivery Nasal Cannula O2 Flow Rate 3.00 11/27/22 00:00 Intake Total 1390 ml Balance 1390 ml Weight (Pounds): 205 Weight (Ounces): 8.0 Constitutional: AAO x 3, well-developed, well-nourished Respiratory: No accessory muscle use; chest expansion is symmetric, chest is bilaterally symmetric, rhonchi (scattered with prolonged exp phase), other (fair air entry, diminished at the bases) Cardiovascular: regular rate-rhythm, S1 and S2, systolic murmur (soft CRISTIANO at card base) Gastrointestional: No tender; soft; No guarding, No rebound; audible bowel sounds Extremities: swelling (mild to mod, both legs); No clubbing, No cyanosis Neurologic/Psychiatric: oriented x 3, other (moves all limbs equally) Skin: normal color, warm/dry; No cyanosis Results/Procedures: Labs Laboratory Tests 11/26/22 11:15: Glucometer 141H 11/26/22 16:27: Glucometer 201H 11/26/22 20:24: Glucometer 240H 11/27/22 05:08: White Blood Count 9.3, Red Blood Count 4.17, Hemoglobin 12.5, Hematocrit 39, Mean Corpuscular Volume 92, Mean Corpuscular Hemoglobin 30, Mean Corpuscular Hemoglobin Concent 33, Red Cell Distribution Width 14.3, Platelet Count 204, Mean Platelet Volume 9.8, Immature Granulocyte % (Auto) 1, Neutrophils (%) (Auto) 85H, Lymphocytes (%) (Auto) 9L, Monocytes (%) (Auto) 4, Eosinophils (%) (Auto) 0, Basophils (%) (Auto) 0, Neutrophils # (Auto) 7.9H, Lymphocytes # (Auto) 0.8L, Monocytes # (Auto) 0.4, Eosinophils # (Auto) 0.0, Basophils # (Auto) 0.0, Immature Granulocyte # (Auto) 0.1, Sodium Level 136, Potassium Level 4.7, Chloride Level 102, Carbon Dioxide Level 24, Anion Gap 10, Blood Urea Nitrogen 44H, Creatinine 2.21H, Estimat Glomerular Filtration Rate 22, BUN/Creatinine Ratio 20, Glucose Level 140H, Calcium Level 8.9, Corrected Calcium 9.5, Magnesium Level 2.3, Total Bilirubin 0.4, Aspartate Amino Transf (AST/SGOT) 13, Alanine Aminotransferase (ALT/SGPT) 26, Alkaline Phosphatase 109, Total Protein 5.8L, Albumin 3.2 11/27/22 05:39: Glucometer 127H Microbiology 11/24/22 MRSA Screen - Final, Complete MRSA not isolated 11/23/22 Blood Culture - Preliminary, Resulted No growth Laboratory Tests 11/26/22 05:11 11/27/22 05:08 A/P: Assessment: Ac exac of COPD due to community-acquired pneumonia Ac diastolic CHF - Echo of Feb 21, 2021: LVEF 60-65%. Grade 2 diastolic dysfunction. LA mildly dilated. Mod calcified mitral valve with mild MR. PASP 50-55 mmHg - Echo on 11-26-22: LVEF 55-60%, grade 2 choi dysfunction, mildly dilated LA, mod MAC, mild MR, PASP 55-60 mmHg H/o pleural eff - mod, R pleural eff during this admission - large, parapneumonic, left-sided effusion, s/p thoracentesis in Dec 2020 - left-sided pleural effusion in January 2022 - tx with thoracentesis and pleur-x catheter placement x 8 weeks COPD - due to chronic smoking of cigarettes Obesity - BMI 39.5 - Obesity-hypovent with RALF, treated with CPAP Pulm hypertension - likely due to obesity-hypoventilation and RALF, followed by her composite technician (Dr. Pardo) CAD - Card cath of 03/25/19: mild to mod CAD, mild elevation of LVEDP CKD 3b - 4 - managed by her coordinator of health services Hypertension - by history Hyperlipidemia - by history H/o chronic tobacco use - approx 40 pack-years - currently down to 3-4 cigs/day Ventral abdominal hernia - manged by PCP Carotid arterial disease. - S/p R CEA in [place]. Pt does not recall surgeon or year of surgery. - Carotid u/s of September 18, 2019 showed mild bilat dz Plan: * Change diuretics to oral, reduced dose d/t worsening renal function in the face of CKD 3-4 * Med svce managing pneumonia * Monitor labs VINI PARTIDA Nov 27, 2022 10:20
[2022-11-27] MEDS ORDERED: PRED10TA22 PO (10:48)
[2022-11-27] MEDS ORDERED: CEFD300C3 PO (10:48)
--- NOTE | 2022-11-27 10:48 | D/C HH Face to Face Order ---
D/C HH Face to Face Orders Reconcile Patient Problems Problems Reviewed?: Yes Instructions for Patient HH Patient Instructions/FollowUp: PCP 1 week Physician to follow Patient: PCP Discharge Diet for Home: No Restrictions Patient Problems: COPD Patient Data-Allergies,Ht & Wt Patient Allergies: Coded Allergies: No Known Drug Allergies (Unverified , 03/20/19) Weight (Pounds): 205 Weight (Ounces): 8.0 Home Health Need/Face to Face Date of Face to Face: Nov 27, 2022 Clinical Findings: Generalized weakness and fatigue, Shortness of breath I have seen Pt [id number]: Yes Discharged To: Home Diagnosis/Conditions: COPD Patient is Homebound due to: Shortness of breath/distress Homebound Status Due to the above stated illness, injury or surgical procedure (medical condition or diagnosis) and associated clinical findings, the patient is homebou nd because of his/her inability to leave home except with aid of a supportive device and/or person AND leaving the home requires a considerable and taxing effort or is medically contraindicated. Pt req the following assistanc: Walker Home Health Nursing Orders Home Health Services Order: Nursing Services, Quality Inspector-Evaluate & Treat, Physical Therapy-Evaluate & Treat Home Health Infusion Therapy Line Start Date: Nov 23, 2022 Certify Stmt I certify that this patient is under my care and that I, a nurse practitioner or a physician; a assistant media planner working with me, had a face to face encounter that - meets the physician face to face encounter requirements with this patient as dated. VICKY CHAVIRA DO Nov 27, 2022 10:48
--- NOTE | 2022-11-27 10:49 | Discharge Summary ---
Discharge Summary Hospital Course Was the Problem List Reviewed?: Yes Problems/Dx: (1) Acute on chronic diastolic (congestive) heart failure Status: Acute (2) CAP (community acquired pneumonia) Status: Acute Qualifiers: Qualified Codes: J18.9 - Pneumonia, unspecified organism (3) Renal failure (ARF), acute on chronic Status: Acute Qualifiers: Qualified Codes: N17.9 - Acute kidney failure, unspecified; N18.32 - Chronic kidney disease, stage 3b (4) Acute and chronic respiratory failure with hypoxia Status: Acute (5) DVT prophylaxis Status: Acute (6) HLD (hyperlipidemia) Status: Chronic Qualifiers: Qualified Codes: E78.2 - Mixed hyperlipidemia (7) HTN (hypertension) Status: Chronic Qualifiers: Qualified Codes: I10 - Essential (primary) hypertension (8) Pleural effusion Status: Acute Hospital Course Date of Admission: Nov 24, 2022 at 09:50 Admission Diagnosis : Family Physician/Provider: Alejandra Wooten MD Date of Discharge: 11/27/22 Discharge Diagnosis: [ ] Hospital Course: Patient had an uneventful hospital course after she was admitted for acute on chronic respiratory failure with volume overload. Patient was restarted on all home medication. oxygen requirements decreased back to baseline oxygen supplementation. Overall she did very well but anxiety caused her to have little confidence that she was discharged in improved condition she will finish out her antibiotic treatment and will monitor closely. Labs and Pending Lab Test: Laboratory Tests 11/26/22 11:15: Glucometer 141H 11/26/22 16:27: Glucometer 201H 11/26/22 20:24: Glucometer 240H 11/27/22 05:08: White Blood Count 9.3, Red Blood Count 4.17, Hemoglobin 12.5, Hematocrit 39, Mean Corpuscular Volume 92, Mean Corpuscular Hemoglobin 30, Mean Corpuscular Hemoglobin Concent 33, Red Cell Distribution Width 14.3, Platelet Count 204, Mean Platelet Volume 9.8, Immature Granulocyte % (Auto) 1, Neutrophils (%) (Auto) 85H, Lymphocytes (%) (Auto) 9L, Monocytes (%) (Auto) 4, Eosinophils (%) (Auto) 0, Basophils (%) (Auto) 0, Neutrophils # (Auto) 7.9H, Lymphocytes # (Auto) 0.8L, Monocytes # (Auto) 0.4, Eosinophils # (Auto) 0.0, Basophils # (Auto) 0.0, Immature Granulocyte # (Auto) 0.1, Sodium Level 136, Potassium Level 4.7, Chloride Level 102, Carbon Dioxide Level 24, Anion Gap 10, Blood Urea Nitrogen 44H, Creatinine 2.21H, Estimat Glomerular Filtration Rate 22, BUN/Creatinine Ratio 20, Glucose Level 140H, Calcium Level 8.9, Corrected Calcium 9.5, Magnesium Level 2.3, Total Bilirubin 0.4, Aspartate Amino Transf (AST/SGOT) 13, Alanine Aminotransferase (ALT/SGPT) 26, Alkaline Phosphatase 109, Total Protein 5.8L, Albumin 3.2 11/27/22 05:39: Glucometer 127H Microbiology 11/24/22 MRSA Screen - Final, Complete MRSA not isolated 11/23/22 Blood Culture - Preliminary, Resulted No growth Home Meds Active Prednisone 10 Mg Tab.ds.pk 10 Mg PO DAILY Take 6 tabs(60mg)daily,decrease by 1 tab(10MG)daily. Cefdinir 300 Mg Capsule 300 Mg PO DAILY Reported Stool Softener (Docusate Sodium) 100 Mg Capsule 100 Mg PO BID PRN Tylenol Extra Strength (Acetaminophen) 500 Mg Tablet 500-1,000 Mg PO Q8H PRN Cetirizine HCl 10 Mg Tablet 10 Mg PO DAILY Ventolin Hfa (Albuterol Sulfate) 90 Mcg Hfa.aer.ad 2 Puff INH Q6H PRN Trelegy Ellipta 100-62.5-25 (Fluticasone/Umeclidin/Vilanter) 100-62.5 Blst.w.dev 1 Puff INH HS Calcitriol 0.25 Mcg Capsule 0.25 Mcg PO SUN,SUN Carvedilol 6.25 Mg Tablet 6.25 Mg PO BID Iron (Ferrous Sulfate) 325 Mg (65 Mg Iron) Tablet 325 Mg PO BID Clonazepam 1 Mg Tablet 1 Mg PO HS Diltiazem 24Hr ER (Diltiazem HCl) 300 Mg Cap.er.24h 300 Mg PO HS Allopurinol 100 Mg Tablet 100 Mg PO DAILY Atorvastatin Calcium 80 Mg Tablet 80 Mg PO HS Furosemide 40 Mg Tablet 40 Mg PO DAILY Assessment/Pt Instructions PCP in 1 week Discharge Planning: <30 minutes discharge planning Discharge Instructions Discharge Diet: No Restrictions Discharge Physical Examination Vital Signs Vital Signs Date Time Temp Pulse Resp B/P (MAP) Pulse Ox O2 Delivery O2 Flow Rate FiO2 11/27/22 10:39 90 Nasal Cannula 4.00 11/27/22 07:55 36.4 73 20 148/80 (102) 11/25/22 12:00 40 General Appearance: No Apparent Distress, WD/WN, Chronically ill Respiratory: No Accessory Muscle Use, No Respiratory Distress, Wheezing (Subtle) Allergies: Coded Allergies: No Known Drug Allergies (Unverified , 03/20/19) Discharge Summary Date of Admission Nov 24, 2022 at 09:50 Date of Discharge Discharge Date: Nov 27, 2022 Discharge Diagnosis (1) Acute and chronic respiratory failure with hypoxia Status: Acute Assessment & Plan: - MAT protocol, prn treatments, will titrate oxygen as tolerated 11/24: Decompensation ON, moved to ICU for closer evaluation, Will consult Dr Romeo to evaluate for thorocentesis (2) CAP (community acquired pneumonia) Status: Acute Assessment & Plan: - Cefedinir BID 11/24: Escalated to IV antibiotics since moved to ICU Qualifiers: Qualified Codes: J18.9 - Pneumonia, unspecified organism (3) Acute on chronic diastolic (congestive) heart failure Status: Acute Assessment & Plan: - Elevated BNP, will give 1 dose of lasix today, Strict I/Os, consult cardiology to see patient in AM 11/24: mild decompensation in CHF but I do not feel this is the root cause, consult cardiology, appreciate recommendations (4) Pleural effusion Status: Acute (5) Renal failure (ARF), acute on chronic Status: Acute Assessment & Plan: - Will continue to monitor closely with diuresis Qualifiers: Qualified Codes: N17.9 - Acute kidney failure, unspecified; N18.32 - Chronic kidney disease, stage 3b (6) HLD (hyperlipidemia) Status: Chronic Qualifiers: Qualified Codes: E78.2 - Mixed hyperlipidemia (7) HTN (hypertension) Status: Chronic Qualifiers: Qualified Codes: I10 - Essential (primary) hypertension (8) DVT prophylaxis Status: Acute Assessment & Plan: VICKY Pereira DO Nov 27, 2022 10:49
--- NOTE | 2022-11-27 11:32 | Physical Therapy Evaluation ---
PT Evaluation-General Medical Diagnosis Admission Date Nov 24, 2022 at 09:50 Medical Diagnosis: respiratory failure Onset Date: Nov 24, 2022 Therapy Diagnosis Therapy Diagnosis: debility Height/Weight Weight (Pounds): 205 Weight (Ounces): 8.0 Precautions Precautions/Isolations: Fall Prevention, Standard Precautions Referral Physician: [place] Reason for Referral: Evaluation/Treatment Medical History Pertinent Medical History: CAD, COPD (3-5L ), HTN, Neuropathy, Smoking Current History ER secondary to SOA/transferred to ICU Reviewed History: Yes Prior Prior Level of Function SCALE: Activities may be completed with or without assistive devices. 4-Bltyxrckuf-xavrcbg completes the activity by him/herself with no assistance from a helper. 5-Set-up or Clean-up Assistance-helper sets up or cleans up; patient completes activity. [place] assists only prior to or following the activity. 4-Supervision or Touching Assistance-helper provides verbal cues and/or touching/steadying and/or contact guard assistance as patient completes activity. Assistance may be provided throughout the activity or intermittently. 3-Partial/Moderate Assistance-helper does LESS THAN HALF the effort. [place] lifts, holds or supports trunk or limbs, but provides less than half the effort. 2-Substantial/Maximal Assistance-helper does MORE THAN HALF the effort. [place] lifts or holds trunk or limbs and provides more than half the effort. 7-Vkgkudwez-easxpw does ALL the effort. Patient does none of the effort to complete the activity. Or, the assistance of 2 or more helpers is required for the patient to complete the activity. If activity was not attempted, code reason: 7-Patient Refused. 9-Not Applicable-not attempted and the patient did not perform the activity before the current illness, exacerbation or injury. 10-Not Attempted due to Environmental Limitations-(lack of equipment, weather restraints, etc.). 88-Not Attempted due to Medical Conditions or Safety Concerns. Bed Mobility: 6 Transfers (B,C,W/C): 6 Gait: 6 Prior Devices Use: Walker PT Evaluation-Current Subjective Patient reluctantly agrees to PT. She reports she is up independent in room. Objective Patient Orientation: Normal For Age Attachments: Oxygen ROM/Strength ROM Lower Extremities bilateral LE WFL Strength Lower Extremities 4/5 grossly bilateral LE all planes Integumentary/Posture Bowel Incontinence: No Bladder Incontinence: No Posture WFL Neuromuscular (Tone, Coordination, Reflexes) grossly intact Sensory Vision: Functional Hearing: Functional Transfers Sit to Stand (QC): 6 Gait Mode of Locomotion: Walk Anticipated Mode of Locomotion: Walk Walk 10 feet (QC): 6 Walk 50 ft with 2 Turns(QC): 6 Walk 150 ft (QC): 6 Distance: 175' Gait Assistive Device: FWW Comments/Gait Description safe and functional gait sequence with no deviation Balance Sitting Static: Normal Sitting Dynamic: Normal Standing Static: Normal Standing Dynamic: Normal Assessment/Needs Noted SOA with minimal activity with O2 in place. Patient reports this is normal. Patient is currently at [facility] with all gross motor skills safely and does not require skilled PT intervention at this time. Rehab Potential: Guarded PT Plan Treatment/Plan Treatment Plan: Discontinue PT, goals met Treatment Duration: Nov 27, 2022 Frequency: 1 time per week Estimated Hrs Per Day: .25 hour per day Time Time In: 1000 Time Out: 1011 DATE: Nov 27, 2022 Total Billed Treatment Time: 11 Total Billed Treatment 1 visit [facility] 11 min SHERRI HERMOSILLO PT Nov 27, 2022 11:32
--- NOTE | 2022-11-27 11:48 | Occ Therapy Progress Note ---
Therapy Progress Note Patient report being Discharged home, decline OT evaluation. FLORINA WORLEY OT Nov 27, 2022 11:48
[2022-11-27 11:54] VITALS: BP 145/85
[2022-11-27 12:24] VITALS: BP 102/60
[2022-11-28] MEDS ORDERED: FUROSEMIDE 40 MG (LASIX) TAB PO SCH (09:00)
== END 2022-11-27 16:05 | disposition home health service (06) | DRG 193 ==
LOC: EDUNIT# 12:47 → ER 12:49 → 4TH 14:58 → ICU 11-24 03:58 → OBSVTOIN 11-24 09:50 → 4TH 11-25 16:21
PROVIDERS: ADMIT Family Medicine; ATTEND Family Medicine
PROC: 5A0935A Assistance with Respiratory Ventilation, Less than 24 Consecutive Hours, High Flow/Velocity Cannula (ICD-10-PCS; principal; 2022-11-24)
PROC: 5A09357 Assistance with Respiratory Ventilation, Less than 24 Consecutive Hours, Continuous Positive Airway Pressure (ICD-10-PCS; 2022-11-24)
DX: J18.9 Pneumonia, unspecified organism (principal); I50.33 Acute on chronic diastolic (congestive) heart failure; J96.21 Acute and chronic respiratory failure with hypoxia; J90 Pleural effusion, not elsewhere classified; N17.9 Acute kidney failure, unspecified; I13.0 Hypertensive heart and chronic kidney disease with heart failure and stage 1 through stage 4 chronic kidney disease, or unspecified chronic kidney disease; J44.0 Chronic obstructive pulmonary disease with (acute) lower respiratory infection; J44.1 Chronic obstructive pulmonary disease with (acute) exacerbation; E66.2 Morbid (severe) obesity with alveolar hypoventilation; N18.4 Chronic kidney disease, stage 4 (severe); E78.5 Hyperlipidemia, unspecified; Z20.822 Contact with and (suspected) exposure to COVID-19; M10.9 Gout, unspecified; F17.210 Nicotine dependence, cigarettes, uncomplicated; Z79.01 Long term (current) use of anticoagulants; Z79.899 Other long term (current) drug therapy; Z95.5 Presence of coronary angioplasty implant and graft; I25.10 Atherosclerotic heart disease of native coronary artery without angina pectoris; I25.2 Old myocardial infarction; G62.9 Polyneuropathy, unspecified; Z86.73 Personal history of transient ischemic attack (TIA), and cerebral infarction without residual deficits; F41.9 Anxiety disorder, unspecified; Z99.81 Dependence on supplemental oxygen; Z66 Do not resuscitate; Z68.39 Body mass index [BMI] 39.0-39.9, adult; I27.20 Pulmonary hypertension, unspecified; K43.9 Ventral hernia without obstruction or gangrene; I77.9 Disorder of arteries and arterioles, unspecified
CPT/HCPCS: 36415; 71045; 71250; 80053; 82947; 83605; 83735; 83880; 84100; 84484; 85007; 85025; 85027; 87040; 87081; 87636; 93005; 93306; 94640; 94660; 94664; 94760; 96365; 96375; G0378

== ENCOUNTER 2023-01-25 11:04 | Inpatient (IN) | payer MEDICARE, MEDICAID ==
[~2023-01-25] VITALS: Ht 157 cm; Wt 103.5 kg
[~2023-01-25 11:04] MED LIST changes: +ACET-2267 PO; +ALBU18HF2 INH; +CARV6.252 PO; +CEFD300C3 PO; +CETI10TA17 PO; +CLON1TAB13 PO; +DOCU-26 PO; +FERR-84 PO; +FLUT1BLS3 INH; +PRED10TA22 PO
[2023-01-25] MEDS ORDERED: RT-Ipratropium/Albuterol NEB 3 ML VIAL INH ONE (11:30)
[2023-01-25 11:38] LABS: BASOPHILS % (AUTO) 1 % (0-10); EOSINOPHILS # (AUTO) 0.2 10^3/uL (0.0-0.3); EOSINOPHILS % (AUTO) 2 % (0-10); HEMATOCRIT 45 % (35-52); HEMOGLOBIN 13.9 g/dL (11.5-16.0); LYMPHOCYTES # (AUTO) 0.9 10^3/uL (1.0-4.0); LYMPHOCYTES % (AUTO) 11 % (12-44); MEAN CORPUSCULAR HEMOGLOBIN 30 pg (25-34); MEAN CORPUSCULAR HGB CONC 31 g/dL (32-36); MEAN CORPUSCULAR VOLUME 96 fL (80-99); MEAN PLATELET VOLUME 10.1 fL (9.0-12.2); MONOCYTES # (AUTO) 0.5 10^3/uL (0.0-1.0); MONOCYTES % (AUTO) 6 % (0-12); NEUTROPHILS # (AUTO) 6.6 10^3/uL (1.8-7.8); NEUTROPHILS % (AUTO) 80 % (42-75); PLATELET COUNT 176 10^3/uL (130-400); WHITE BLOOD COUNT 8.2 10^3/uL (4.3-11.0)
[2023-01-25 11:40] LABS: ALBUMIN 3.6 GM/DL (3.2-4.5); POTASSIUM 4.1 MMOL/L (3.6-5.0)
[2023-01-25 11:41] LABS: CALCIUM 9.7 MG/DL (8.5-10.1)
[2023-01-25 11:42] LABS: TOTAL PROTEIN 6.3 GM/DL (6.4-8.2)
[2023-01-25] MEDS ORDERED: RT-Ipratropium/Albuterol NEB 3 ML VIAL ONE (11:42)
[2023-01-25 11:43] LABS: ABG BASE EXCESS 9.1 MMOL/L (-2.5-2.5); ABG OXYGEN SATURATION 89 % (94-100); ABG PCO2 62 MMHG (35-45); ABG PH 7.37 (7.37-7.43); ABG PO2 60 MMHG (79-93); ABG TCO2 36.4 MMOL/L (21.0-31.0)
[2023-01-25 11:44] LABS: ALLENS TEST YES-POS; BILIRUBIN,TOTAL 0.8 MG/DL (0.1-1.0); INSPIRED O2 30; VENTILATOR NO
[2023-01-25 11:45] LABS: PATIENT TEMP 37
[2023-01-25 11:46] LABS: CREATININE SERUM 2.03 MG/DL (0.60-1.30); INR 0.9 (0.8-1.4); PROTHROMBIN TIME PATIENT 12.4 SEC (12.2-14.7)
--- NOTE | 2023-01-25 11:48 | ED General ---
General Chief Complaint: Respiratory Problems Stated Complaint: DIFFICULTY BREATHING Nursing Triage Note: ARRIVED VIA WC FROM HOME WITH INCREASED SOA. USUALLY IS ON 3L NC ET DAUGHTER STATES SHE HAS IT AT 8LN TO [facility]. Source of Information: Patient Exam Limitations: No Limitations History of Present Illness Date Seen by Provider: Jan 25, 2023 Time Seen by Provider: 11:14 Initial Comments Here with daughter who reports that she has had increasing shortness of air at home over the last 1 to 2 days. Patient does have history of heart failure and COPD. No recent fever although does feel quite weak. Daughter reports that they had increased her oxygen to 5 L at home from her normal 3 and that was not quite cutting it and so brought her in. She is hypoxic on arrival and noted to be quite swollen. Patient denies chest pain but does admit to breathing problems and wheezing. Daughter did give albuterol treatment a couple hours ago and that helped a little bit but not significantly. No report of nausea, vomiting or diarrhea. Denies chest pain, sore throat, runny nose but does have cough that is chronic but seems to be a little worse. No exposure to recent illnesses and patient is vaccinated for COVID. Timing/Duration: 1-2 Days, Getting Worse Severity: Moderate Associated Systoms: No Chest Pain; Cough (Chronic); No Fever/Chills, No Nausea/Vomiting; Shortness of Air, Weakness Allergies and Home Medications Allergies Coded Allergies: No Known Drug Allergies (Unverified , 03/20/19) Patient Home Medication List Home Medication List Reviewed: Yes Acetaminophen (Tylenol Extra Strength) 500 Mg Tablet, 500-1,000 MG PO Q8H PRN for PAIN-MILD (1-4), (Reported) Entered as Reported by: MATT CAMPA on 11/24/22 1134 Albuterol Sulfate (Ventolin Hfa) 90 Mcg Hfa.aer.ad, 2 PUFF INH Q6H PRN for SHORTNESS OF BREATH, (Reported) Entered as Reported by: MATT CAMPA on 11/24/22 1134 Allopurinol (Allopurinol) 100 Mg Tablet, 100 MG PO DAILY, (Reported) Entered as Reported by: DENISSE HUERTA on 03/20/19 1315 Atorvastatin Calcium (Atorvastatin Calcium) 80 Mg Tablet, 80 MG PO HS, (Reported) Entered as Reported by: DENISSE HUERTA on 03/20/19 1315 Calcitriol (Calcitriol) 0.25 Mcg Capsule, 0.25 MCG PO , (Reported) Entered as Reported by: MATT CAMPA on 11/24/22 1134 Carvedilol (Carvedilol) 6.25 Mg Tablet, 6.25 MG PO BID, (Reported) Entered as Reported by: MATT CAMPA on 11/24/22 1134 Cefdinir (Cefdinir) 300 Mg Capsule, 300 MG PO DAILY Prescribed by: VICKY CHAVIRA on 11/27/22 1048 Cetirizine HCl (Cetirizine HCl) 10 Mg Tablet, 10 MG PO DAILY, (Reported) Entered as Reported by: MATT CAMPA on 11/24/22 1134 Clonazepam (Clonazepam) 1 Mg Tablet, 1 MG PO HS, (Reported) Entered as Reported by: MATT CAMPA on 11/24/22 1134 Diltiazem HCl (Diltiazem 24Hr ER) 300 Mg Cap.er.24h, 300 MG PO HS, (Reported) Entered as Reported by: MATT CAMPA on 01/13/21 1359 Docusate Sodium (Stool Softener) 100 Mg Capsule, 100 MG PO BID PRN for CONSTIPATION-1ST LINE, (Reported) Entered as Reported by: MATT CAMPA on 11/24/22 1134 Ferrous Sulfate (Iron) 325 Mg (65 Mg Iron) Tablet, 325 MG PO BID, (Reported) Entered as Reported by: MATT CAMPA on 11/24/22 1134 Fluticasone/Umeclidin/Vilanter (Trelegy Ellipta 100-62.5-25) 100-62.5 Blst.w.dev, 1 PUFF INH HS, (Reported) Entered as Reported by: MATT CAMPA on 11/24/22 1134 Furosemide (Furosemide) 40 Mg Tablet, 40 MG PO DAILY, (Reported) Entered as Reported by: DENISSE HUERTA on 03/20/19 1315 Prednisone (Prednisone) 10 Mg Tab.ds.pk, 10 MG PO DAILY Prescribed by: VICKY CHAVIRA on 11/27/22 1048 Review of Systems Review of Systems Constitutional: see HPI; No chills, No fever; weakness EENTM: see HPI Respiratory: cough, short of breath, wheezing Cardiovascular: No chest pain; edema Gastrointestinal: No nausea, No vomiting Genitourinary: no symptoms reported Musculoskeletal: no symptoms reported Skin: no symptoms reported Psychiatric/Neurological: No Symptoms Reported Past Spblbsp-Rgeoae-Yjxzmx Hx Patient Social History Tobacco Use?: Yes Smoking Status: Current Everyday Smoker Substance use?: No Alcohol Use?: No Immunizations Up To Date First/Initial COVID19 Vaccinat: "2 shots" Second COVID19 Vaccination Beck: UNKNOWN Third COVID19 Vaccination Date: NA Seasonal Allergies Seasonal Allergies: Yes Past Medical History Surgery/Hospitalization HX: Kya; back surg; bladder pin up; stent (groin), cataracts; T&A; appendix; tubes tied; right shoulder Surgeries: Yes Appendectomy, Coronary Stent, Gallbladder, Tonsillectomy Respiratory: Yes COPD Currently Using CPAP: No Currently Using BIPAP: No Cardiac: Yes Chronic Edema/Swelling, Coronary Artery Disease, Heart Attack, Hypertension, Irr egular Heartbeat Neurological: Yes Neuropathy, Stroke Genitourinary: Yes Renal Failure Gastrointestinal: No Abdominal Hernia Musculoskeletal: Yes Gout Endocrine: No HEENT: No Cancer: No Psychosocial: Yes Anxiety Integumentary: No Family Medical History Reviewed Nursing Family Hx Heart Disease Physical Exam-Suspected Sepsis Physical Exam Vital Signs Vital Signs - First Documented 01/25/23 11:43 FiO2 50 Capillary Refill : Less Than 3 Seconds Blood Pressure Mean: 114 Height, Weight, BMI Height: '" Weight: 205lbs. 8.0oz. kg; 40.00 BMI Method: General Appearance: Mild Distress, Obese HEENT: PERRL/EOMI, Pharynx Normal Neck: Non Tender, Supple Respiratory: Crackles, Respiratory Distress (Tachypneic), Wheezing Cardiovascular: Regular Rate, Rhythm, No Murmur Gastrointestinal: Non Tender, Soft Back: Normal Inspection, No CVA Tenderness, No Vertebral Tenderness Extremity: Normal Range of Motion, Pedal Edema (2+ up to knees bilateral) Neurologic/Psychiatric: Alert, Oriented x3 Skin: normal color, warm/dry Focused Exam Lactate Level 01/25/23 11:20: Lactic Acid Level 1.46 Lactic Acid Level Laboratory Tests Test 01/25/23 11:20 Lactic Acid Level 1.46 MMOL/L (0.50-2.00) Progress/Results/Core Measures Suspected Sepsis SIRS Temperature: Pulse: 86 Respiratory Rate: 16 Laboratory Tests 01/25/23 11:20: White Blood Count 8.2 Blood Pressure 152 /95 Mean: 114 01/25/23 11:20: Lactic Acid Level 1.46 Laboratory Tests 01/25/23 11:20: Creatinine 2.03H, INR Comment 0.9, Platelet Count 176, Total Bilirubin 0.8 Results/Orders Lab Results Laboratory Tests Test 01/25/23 11:20 Range/Units White Blood Count 8.2 4.3-11.0 10^3/uL Red Blood Count 4.67 3.80-5.11 10^6/uL Hemoglobin 13.9 11.5-16.0 g/dL Hematocrit 45 35-52 % Mean Corpuscular Volume 96 80-99 fL Mean Corpuscular Hemoglobin 30 25-34 pg Mean Corpuscular Hemoglobin Concent 31 L 32-36 g/dL Red Cell Distribution Width 14.6 H 10.0-14.5 % Platelet Count 176 130-400 10^3/uL Mean Platelet Volume 10.1 9.0-12.2 fL Immature Granulocyte % (Auto) 0 % Neutrophils (%) (Auto) 80 H 42-75 % Lymphocytes (%) (Auto) 11 L 12-44 % Monocytes (%) (Auto) 6 0-12 % Eosinophils (%) (Auto) 2 0-10 % Basophils (%) (Auto) 1 0-10 % Neutrophils # (Auto) 6.6 1.8-7.8 10^3/uL Lymphocytes # (Auto) 0.9 L 1.0-4.0 10^3/uL Monocytes # (Auto) 0.5 0.0-1.0 10^3/uL Eosinophils # (Auto) 0.2 0.0-0.3 10^3/uL Basophils # (Auto) 0.0 0.0-0.1 10^3/uL Immature Granulocyte # (Auto) 0.0 0.0-0.1 10^3/uL Prothrombin Time 12.4 12.2-14.7 SEC INR Comment 0.9 0.8-1.4 Activated Partial Thromboplast Time 27 24-35 SEC Blood Gas Puncture Site LEFT RAD Blood Gas Patient Temperature 37 Arterial Blood pH 7.37 7.37-7.43 Arterial Blood Partial Pressure CO2 62 H 35-45 MMHG Arterial Blood Partial Pressure O2 60 L 79-93 MMHG Arterial Blood HCO3 35 H 23-27 MMOL/L Arterial Blood Total CO2 36.4 H 21.0-31.0 MMOL/L Arterial Blood Oxygen Saturation 89 L 94-100 % Arterial Blood Base Excess 9.1 H -2.5-2.5 MMOL/L Xavier Test YES-POS Blood Gas Ventilator Setting NO Blood Gas Inspired Oxygen 30 Sodium Level 139 135-145 MMOL/L Potassium Level 4.1 3.6-5.0 MMOL/L Chloride Level 98 98-107 MMOL/L Carbon Dioxide Level 29 21-32 MMOL/L Anion Gap 12 5-14 MMOL/L Blood Urea Nitrogen 27 H 7-18 MG/DL Creatinine 2.03 H 0.60-1.30 MG/DL Estimat Glomerular Filtration Rate 24 BUN/Creatinine Ratio 13 Glucose Level 102 70-105 MG/DL Lactic Acid Level 1.46 0.50-2.00 MMOL/L Calcium Level 9.7 8.5-10.1 MG/DL Corrected Calcium 10.0 8.5-10.1 MG/DL Total Bilirubin 0.8 0.1-1.0 MG/DL Aspartate Amino Transf (AST/SGOT) 15 5-34 U/L Alanine Aminotransferase (ALT/SGPT) 16 0-55 U/L Alkaline Phosphatase 164 H 40-136 U/L Troponin I 0.033 H <0.028 NG/ML B-Type Natriuretic Peptide 391.9 H <100.0 PG/ML Total Protein 6.3 L 6.4-8.2 GM/DL Albumin 3.6 3.2-4.5 GM/DL My Orders Orders - NAMITA PA MD Arterial Blood Gas (01/25/23 11:21) Bnp Silvina (01/25/23 11:21) Troponin I Silvina (01/25/23 11:21) Cbc With Automated Diff (01/25/23 11:21) Comprehensive Metabolic Panel (01/25/23 11:21) Blood Culture (01/25/23 11:21) Sputum Culture (01/25/23 11:21) Urinalysis (01/25/23 11:21) Urine Culture (01/25/23 11:21) Protime With Inr (01/25/23 11:21) Partial Thromboplastin Time (01/25/23 11:21) Chest 1 View, Ap/Pa Only (01/25/23 11:21) Ed Iv/Invasive Line Start (01/25/23 11:21) Ekg Tracing (01/25/23 11:21) Vital Signs Adult Sepsis Patie Q15M (01/25/23 11:21) O2 (01/25/23 11:21) Remove Rings In Anticipation O (01/25/23 11:21) Lactic Acid Analyzer (01/25/23 11:21) Ipratropium/Albuterol Inh Soln (Ipratrop (01/25/23 11:30) Svn Small Volume Nebulizer (01/25/23 11:21) Ipratropium/Albuterol Inh Soln (Ipratrop (01/25/23 11:42) Furosemide Injection (Furosemide Injec (01/25/23 12:30) Medications Given in ED Current Medications Medications Dose Ordered Sig/Angel Route Start Time Stop Time Status Last Admin Dose Admin Albuterol/ Ipratropium 3 ml ONCE ONCE INH 01/25/23 11:30 01/25/23 11:31 DC 01/25/23 11:47 3 ML Albuterol/ Ipratropium 3 ml STK-MED ONCE .ROUTE 01/25/23 11:42 01/25/23 11:45 DC 01/25/23 11:47 3 ML Vital Signs/I&O 01/25/23 01/25/23 01/25/23 11:06 11:06 11:43 Temp 36.2 Pulse 86 Resp 16 B/P (MAP) 152/95 (114) Pulse Ox 86 86 96 O2 Delivery Nasal Cannula Nasal Cannula O2 Flow Rate 8.00 8.00 30.00 FiO2 50 Capillary Refill : Less Than 3 Seconds Blood Pressure Mean: 114 Progress Note : Progress Note Seen and evaluated. We will initiate sepsis protocol including CBC, CMP, BNP, troponin, coags, UA with culture, chest x-ray, blood cultures and lactic acid. I will get ABG and EKG as well. Differential diagnosis includes CHF, COPD exacerbation, pneumonia, electrolyte abnormality, cardiac event 1218: ABG reviewed and she does have elevation of CO2 level but is not acidotic so I think this is compensated. Chest x-ray does show right pleural effusion that is chronic with some vascular congestion. Troponin is slightly bumped and BNP is slightly elevated as well which may indicate some component of heart failure. Patient does historically have right pleural effusion. CBC shows normal white count without left shift and CMP shows chronic elevated serum creatinine at 2 without significant electrolyte abnormality. This appears to be more COPD exacerbation requiring increased oxygenation with some component of CHF as well. She is tolerating Vapotherm well currently and O2 saturations are currently 92%. 236: I have discussed the case with Dr. Chavira, on-call hospitalist for [facility] and she is excepted the patient for admission, inpatient status to the ICU. I will give Lasix 40 mg IV as well as Decadron 4 mg IV. I did discuss the case with the on-call neurology hospitalist, Dr. Gordon. He accepts patient for consult and is recommending 2D cardiac echo as well as serial troponins. This was passed on to the admitting team. I did discuss admission with the patient and she agrees. She does request DNR status. That was ordered. ECG Initial ECG Impression Date: Jan 25, 2023 Initial ECG Impression Time: 11:55 Initial ECG Rate: 75 Initial ECG Rhythm: Normal Sinus Initial ECG Intervals: Normal Comment Sinus rhythm with normal axis. No evidence of ST elevation [place]. Interpreted by me. Departure Communication (Admissions) Time/Spoke to Admitting Phy: 12:31 Time/Spoke to Consulting Phy: 12:36 Impression Primary Impression: COPD exacerbation Additional Impressions: Acute and chronic respiratory failure with hypoxia Diastolic CHF, acute on chronic Disposition: ADMITTED INPATIENT Condition: Stable Admissions Decision to Admit Reason: Admit from ER (General) Decision to Admit/Date: Jan 25, 2023 Time/Decision to Admit Time: 12:31 Departure-Patient Inst. Referrals: VIKY CHEATHAM MD (PCP/Family) Primary Care Physician NAMITA AP MD Jan 25, 2023 11:48
--- NOTE | 2023-01-25 12:17 | Diagnostic Imaging Report ---
INDICATION: Respiratory distress and wheezing. Comparison is made with prior examination of 11/23/2022. FINDINGS: There is cardiomegaly. There is some venous congestion. There is bibasilar atelectasis and/or pneumonitis, right greater than left. There is a right pleural effusion. There is no pneumothorax. Mediastinum is unremarkable. IMPRESSION: Bibasilar atelectasis and/or pneumonitis, right greater than left, with a right pleural effusion. Cardiomegaly and mild central pulmonary venous congestion. Dictated by: Dictated on workstation # [id number]
[2023-01-25] MEDS ORDERED: FUROSEMIDE INJECTION 40 MG/4 ML VIAL IV STA (12:30)
[2023-01-25] MEDS ORDERED: dexAMETHasone INJ 4 MG/ML SDV IV ONE (12:45)
--- NOTE | 2023-01-25 12:56 | History & Physical ---
History of Present Illness HPI/Chief Complaint Chief complaint: Acute hypoxic respiratory failure requiring Vapotherm HPI: This is an 82-year-old female who has a past medical history of respiratory failure maintained on oxygen at home and congestive heart failure who presented with progressive shortness of breath with anasarca requiring ER evaluation. She was just hospitalized 6 weeks ago with similar issues. She was assessed to have congestive heart failure in need of IV diuresis in ICU and Vapotherm. Daughter at the bedside understands the plan along with the patient. Source: patient, family Exam Limitations: clinical condition Date Seen 01/25/23 Time Seen by a Provider: 13:00 Attending Physician Alejandra Wooten MD PCP Admitting Physician: Attending Physician: Referring Physician Date of Admission Home Medications & Allergies Home Medications Reviewed patient Home Medication Reconciliation performed by pharmacy medication reconciliations certified medical technician and/or nursing. Patients Allergies have been reviewed. Allergies Allergies Coded Allergies No Known Drug Allergies (Ijnzmdauwf62/31/19) Past Mnzcbgf-Jszpmq-Mimtle Hx Past Med/Social Hx: Reviewed Nursing Past Med/Soc Hx, Reviewed and Corrections made Patient Social History Marrital Status: single Employed/Student: retired Alcohol Use: Denies Use Smoking Status: Former Smoker Type Used: Cigarettes 2nd Hand Smoke Exposure: No Recent Hopitalizations: No Seasonal Allergies Seasonal Allergies: Yes Past Medical History Surgeries: Appendectomy, Coronary Stent, Gallbladder, Tonsillectomy Respiratory: COPD, Pneumonia Currently Using CPAP: No Currently Using BIPAP: No Cardiac: Chronic Edema/Swelling, Coronary Artery Disease, Heart Attack, Hypertension, Irregular Heartbeat Neurological: Neuropathy, Stroke Genitourinary: Renal Failure Gastrointestinal: Abdominal Hernia Musculoskeletal: Gout Psychosocial: Anxiety Family History Reviewed Nursing Family Hx Heart Disease Review of Systems Constitutional: see HPI, dizziness, malaise, weakness Respiratory: dyspnea on exertion, short of breath Psychiatric/Neurological: Anxiety Physical Exam Physical Exam Vital Signs Vital Signs - First Documented 01/25/23 11:43 FiO2 50 Capillary Refill : Less Than 3 Seconds Height, Weight, BMI Height: '" Weight: 205lbs. 8.0oz. kg; 40.00 BMI Method: General Appearance: Anxious, Chronically ill, Mild Distress, Obese HEENT: PERRL/EOMI, Pharynx Normal Neck: Non Tender, Supple Respiratory: Crackles, Decreased Breath Sounds, Respiratory Distress (Tachypneic), Wheezing Cardiovascular: Regular Rate, Rhythm, No Murmur Gastrointestinal: Non Tender, Soft Back: Normal Inspection, No CVA Tenderness, No Vertebral Tenderness Extremity: Normal Range of Motion, Pedal Edema (2+ up to knees bilateral) Neurologic/Psychiatric: Alert, Oriented x3 Results Results/Procedures Labs Laboratory Tests 01/25/23 11:20 Patient resulted labs reviewed. Assessment/Plan Admission Diagnosis Assessment: Acute on chronic respiratory failure requiring Vapotherm Acute on chronic congestive heart failure Chronic kidney disease NSTEMI likely type II MD COPD with exacerbation Plan: IV Lasix Cardiology consult ICU Vapotherm Admission Status: Inpatient Order (span 2 midnights) Reason for Inpatient Admission: resp failure Diagnosis/Problems Diagnosis/Problems (1) Acute on chronic diastolic (congestive) heart failure Status: Acute (2) COPD exacerbation Status: Acute (3) Acute and chronic respiratory failure with hypoxia Status: Acute (4) Diastolic CHF, acute on chronic Status: Acute (5) CAP (community acquired pneumonia) Status: Acute (6) Renal failure (ARF), acute on chronic Status: Acute (7) DVT prophylaxis Status: Acute (8) HLD (hyperlipidemia) Status: Chronic (9) HTN (hypertension) Status: Chronic VICKY CHAVIRA DO Jan 25, 2023 12:56
[2023-01-25] MEDS ORDERED: diphenhydrAMINE 25 MG TABLET PO PRN (13:45)
[2023-01-25] MEDS ORDERED: ONDANSETRON 4 MG ORAL DISSOLVE TABLET PO PRN (13:45)
[2023-01-25] MEDS ORDERED: ANTACID SUSPENSION 30 ML UDC PO PRN (13:45)
[2023-01-25] MEDS ORDERED: CALCIUM CARBONATE 500 MG CHEW TABLET PO PRN (13:45)
[2023-01-25] MEDS ORDERED: ALPRAZolam 1 MG TABLET PO PRN (13:45)
[2023-01-25] MEDS ORDERED: LACTULOSE SYRUP 10GM/15ML 30ML UDC PO PRN (13:45)
[2023-01-25] MEDS ORDERED: HYDROmorphone INJECTION 2 MG/ML VIAL IV PRN (13:45)
[2023-01-25] MEDS ORDERED: ENOXAPARIN 40 MG/0.4 ML SYRINGE SC SCH (13:45)
[2023-01-25] MEDS ORDERED: MILK OF MAGNESIA 400 MG/5 ML 30 ML UDC PO PRN (13:45)
[2023-01-25] MEDS ORDERED: diphenhydrAMINE INJ 50 MG/ML VIAL IVP PRN (13:45)
[2023-01-25] MEDS ORDERED: ONDANSETRON INJECTION 4 MG/2 ML (SDV) IV PRN (13:45)
[2023-01-25] MEDS ORDERED: NS IV 500 ML 500 ML IV PRN (13:45)
[2023-01-25] MEDS ORDERED: BISACODYL 10 MG SUPPOSITORY PR PRN (13:45)
[2023-01-25 13:58] VITALS: BP 160/91
[2023-01-25] MEDS ORDERED: ENOXAPARIN 30 MG/0.3 ML SYRINGE SC SCH (14:00)
[2023-01-25] MEDS ORDERED: ALPRAZolam 0.5 MG TABLET PO PRN (14:00)
[2023-01-25] MEDS ORDERED: RT-Ipratropium/Albuterol NEB 3 ML VIAL INH PRN (14:15)
[2023-01-25] MEDS: inSUlin ASPART 1 UNIT/0.01 ML (PER UNIT) SC SCH ×2 (16:20→21:27)
[2023-01-25] MEDS: FUROSEMIDE INJECTION 40 MG/4 ML VIAL IVP SCH (16:20)
[2023-01-25] MEDS: MICONAZOLE 2% POWDER 90 GM TOP SCH ×2 (16:21→21:29)
--- NOTE | 2023-01-25 17:29 | Consultation-Cardiology ---
HPI-Cardiology Cardiology Consultation: Date of Consultation 01/25/23 Date of Admission Attending Physician Alejandra Wooten MD Admitting Physician Admitting Physician: Leonor Chavira DO Attending Physician: Leonor Chavira DO Consulting Physician Blane TOMAS MD HPI: Time Seen by a Provider: 17:00 Chief Complaint: Shortness of breath This is a 82-year-old lady with history of active smoking, COPD. She presents with Worsening shortness of breath for the last few days but worse today. Working diagnosis of COPD exacerbation. Review of Systems-Cardiology Review of Systems Constitutional: no symptoms reported Eyes: no symptoms reported Ears/Nose/Throat: no symptoms reported Respiratory: shortness of breath Cardiovascular: No chest pain; edema Gastrointestinal: no symptoms reported Genitourinary: no symptoms reported LAR-Rbpjlj-Uapqzc Hx Patient Social History Smoking Status: Current Everyday Smoker 2nd Hand Smoke Exposure: No Alcohol Use?: No Pt feels they are or have been: No Tobacco type used: Cigarettes Past Medical History PMH As described under Assessment. Family Medical History Family Medical History: Father had [facility] when he was in his 60s Allergies and Home Medications Allergies Coded Allergies: No Known Drug Allergies (Unverified , 03/20/19) Patient Home Medication List Home Medication List Reviewed: Yes Acetaminophen (Tylenol Extra Strength) 500 Mg Tablet, 500-1,000 MG PO Q8H PRN for PAIN-MILD (1-4), (Reported) Entered as Reported by: MATT CAMPA on 11/24/22 1134 Albuterol Sulfate (Ventolin Hfa) 90 Mcg Hfa.aer.ad, 2 PUFF INH Q6H PRN for SHORTNESS OF BREATH, (Reported) Entered as Reported by: MATT CAMPA on 11/24/22 1134 Allopurinol (Allopurinol) 100 Mg Tablet, 100 MG PO DAILY, (Reported) Entered as Reported by: DENISSE HUERTA on 03/20/19 1315 Atorvastatin Calcium (Atorvastatin Calcium) 80 Mg Tablet, 80 MG PO HS, (Reported) Entered as Reported by: DENISSE HUERTA on 03/20/19 1315 Calcitriol (Calcitriol) 0.25 Mcg Capsule, 0.25 MCG PO MON,WED, (Reported) Entered as Reported by: MATT CAMPA on 11/24/22 1134 Carvedilol (Carvedilol) 6.25 Mg Tablet, 6.25 MG PO BID, (Reported) Entered as Reported by: MATT CAMPA on 11/24/22 1134 Cefdinir (Cefdinir) 300 Mg Capsule, 300 MG PO DAILY Prescribed by: LEONOR CHAVIRA on 11/27/22 1048 Cetirizine HCl (Cetirizine HCl) 10 Mg Tablet, 10 MG PO DAILY, (Reported) Entered as Reported by: MATT CAMPA on 11/24/22 1134 Clonazepam (Clonazepam) 1 Mg Tablet, 1 MG PO HS, (Reported) Entered as Reported by: MATT CAMPA on 11/24/22 1134 Diltiazem HCl (Diltiazem 24Hr ER) 300 Mg Cap.er.24h, 300 MG PO HS, (Reported) Entered as Reported by: MATT CAMPA on 01/13/21 1359 Docusate Sodium (Stool Softener) 100 Mg Capsule, 100 MG PO BID PRN for CONSTIPATION-1ST LINE, (Reported) Entered as Reported by: MATT CAMPA on 11/24/22 1134 Ferrous Sulfate (Iron) 325 Mg (65 Mg Iron) Tablet, 325 MG PO BID, (Reported) Entered as Reported by: MATT CAMPA on 11/24/22 1134 Fluticasone/Umeclidin/Vilanter (Trelegy Ellipta 100-62.5-25) 100-62.5 Blst.w.dev, 1 PUFF INH HS, (Reported) Entered as Reported by: MATT CAMPA on 11/24/22 1134 Furosemide (Furosemide) 40 Mg Tablet, 40 MG PO DAILY, (Reported) Entered as Reported by: DENISSE HUERTA on 03/20/19 1315 Prednisone (Prednisone) 10 Mg Tab.ds.pk, 10 MG PO DAILY Prescribed by: LEONOR CHAVIRA on 11/27/22 1048 Exam Vital Signs Vital Signs Date Time Temp Pulse Resp B/P (MAP) Pulse Ox O2 Delivery O2 Flow Rate FiO2 01/25/23 18:41 93 Vapotherm 20.00 50 01/25/23 18:00 83 133/72 (92) 01/25/23 14:30 38 01/25/23 13:58 36.2 Physical Exam Constitutional: Mild respiratory distress. Chest: Bilateral wheezing. CVS: Tachycardia, regular rhythm. Neuro: Nonfocal. Bilateral lower extremity swelling. Labs Laboratory Tests Test 01/25/23 11:20 01/25/23 17:51 Range/Units White Blood Count 8.2 4.3-11.0 10^3/uL Red Blood Count 4.67 3.80-5.11 10^6/uL Hemoglobin 13.9 11.5-16.0 g/dL Hematocrit 45 35-52 % Mean Corpuscular Volume 96 80-99 fL Mean Corpuscular Hemoglobin 30 25-34 pg Mean Corpuscular Hemoglobin Concent 31 L 32-36 g/dL Red Cell Distribution Width 14.6 H 10.0-14.5 % Platelet Count 176 130-400 10^3/uL Mean Platelet Volume 10.1 9.0-12.2 fL Immature Granulocyte % (Auto) 0 % Neutrophils (%) (Auto) 80 H 42-75 % Lymphocytes (%) (Auto) 11 L 12-44 % Monocytes (%) (Auto) 6 0-12 % Eosinophils (%) (Auto) 2 0-10 % Basophils (%) (Auto) 1 0-10 % Neutrophils # (Auto) 6.6 1.8-7.8 10^3/uL Lymphocytes # (Auto) 0.9 L 1.0-4.0 10^3/uL Monocytes # (Auto) 0.5 0.0-1.0 10^3/uL Eosinophils # (Auto) 0.2 0.0-0.3 10^3/uL Basophils # (Auto) 0.0 0.0-0.1 10^3/uL Immature Granulocyte # (Auto) 0.0 0.0-0.1 10^3/uL Prothrombin Time 12.4 12.2-14.7 SEC INR Comment 0.9 0.8-1.4 Activated Partial Thromboplast Time 27 24-35 SEC Blood Gas Puncture Site LEFT RAD Blood Gas Patient Temperature 37 Arterial Blood pH 7.37 7.37-7.43 Arterial Blood Partial Pressure CO2 62 H 35-45 MMHG Arterial Blood Partial Pressure O2 60 L 79-93 MMHG Arterial Blood HCO3 35 H 23-27 MMOL/L Arterial Blood Total CO2 36.4 H 21.0-31.0 MMOL/L Arterial Blood Oxygen Saturation 89 L 94-100 % Arterial Blood Base Excess 9.1 H -2.5-2.5 MMOL/L Xavier Test YES-POS Blood Gas Ventilator Setting NO Blood Gas Inspired Oxygen 30 Sodium Level 139 135-145 MMOL/L Potassium Level 4.1 3.6-5.0 MMOL/L Chloride Level 98 98-107 MMOL/L Carbon Dioxide Level 29 21-32 MMOL/L Anion Gap 12 5-14 MMOL/L Blood Urea Nitrogen 27 H 7-18 MG/DL Creatinine 2.03 H 0.60-1.30 MG/DL Estimat Glomerular Filtration Rate 24 BUN/Creatinine Ratio 13 Glucose Level 102 70-105 MG/DL Lactic Acid Level 1.46 0.50-2.00 MMOL/L Calcium Level 9.7 8.5-10.1 MG/DL Corrected Calcium 10.0 8.5-10.1 MG/DL Total Bilirubin 0.8 0.1-1.0 MG/DL Aspartate Amino Transf (AST/SGOT) 15 5-34 U/L Alanine Aminotransferase (ALT/SGPT) 16 0-55 U/L Alkaline Phosphatase 164 H 40-136 U/L Troponin I 0.033 H < 0.028 <0.028 NG/ML B-Type Natriuretic Peptide 391.9 H <100.0 PG/ML Total Protein 6.3 L 6.4-8.2 GM/DL Albumin 3.6 3.2-4.5 GM/DL ECG Impression ECG Initial ECG Rhythm: Normal Sinus Initial ECG Impression: Nonspecific Changes A/P-Cardiology Assessment/Admission Diagnosis Acute respiratory failure, COPD exacerbation, Possible acute on chronic systolic congestive heart failure, Pulmonary hypertension Acute on chronic kidney injury, Borderline positive troponin Plan Acute respiratory failure likely due to COPD exacerbation. Patient is an active smoker. Smoking cessation was strongly recommended. Possible acute on chronic systolic congestive heart failure. Echocardiogram shows an EF of 45 to 50%. Mildly elevated BNP. Could be due to RV strain. Pulmonary hypertension likely secondary to severe COPD. Acute on chronic kidney disease. Borderline positive troponin: Serial troponin is negative. Possibility of type II [facility]. Discussed at length with the patient and daughter. Blane TOMAS MD Jan 25, 2023 17:29
--- NOTE | 2023-01-25 17:46 | Tele-ICU Progress Note ---
Subjective Date Seen by a Provider: Jan 25, 2023 Time Seen by a Provider: 17:45 Subjective/Events-last exam (Tele-ICU Physician , consultation as per request of PCP Service provided via interactive audio and video telecommunications E-CARE system to a patient admitted to ICU bed in [facility]. Available chart/ vitals / labs / Images reviewed H&P is from ER notes Patient's information available about PMH, Shx, Fhx allergy reviewed inEMR. ROS as per chart and RN report Now in ICU, hemodynamically stable Video assessment done using teleICU camera, rest of exam as per RN Discussed with RN. Hospital course: (01-25) 82 y/o F - Acute COPD Exacerbation/CHF/Hypoxia - on VT 30L 50 % A/P Acute hypoxic resp failure ( combinat of AECOPD /CHF - on VT 30L 50 % - steroids , nebs , diuresis started AECOPD (COPD - 3 L o2 baseline ) - IV steroids , nebs CHF - cards consulted - ;lasix given - follow serial trrops and ECHO DNR Lines : , (Central Line Necessity Reviewed) Thomas: JUVENAL OG: Nutrition: Analgesia: Anxiety/ delirium VTE Prophylaxis: sam 30 q24 Stress Ulcer Prophylaxis: Plans in collaboration with bedside consultants and IM MDs. Discussed with RN to reach out if any questions or concerns A total of 20 minutes of critical care time was devoted to this patient today, required to treat and/or prevent further deterioration of critical care conditi on ( as above ) . I am remotely monitoring this patient from another state. I am unable to do the bedside exam, and history/physical and pertinent information is taken from other notes in the computer and bedside staff. . Sepsis Event Evaluation Height, Weight, BMI Height: '" Weight: 205lbs. 8.0oz. kg; 39.92 BMI Method: Focused Exam Lactate Level 01/25/23 11:20: Lactic Acid Level 1.46 Exam Exam Patient acknowledged, consented, and participated in this virtual visit which was conducted using real time audio/video Vital Signs Date Time Temp Pulse Resp B/P (MAP) Pulse Ox O2 Delivery O2 Flow Rate FiO2 01/25/23 16:00 79 153/81 (105) 92 Vapotherm 20.00 50.00 01/25/23 15:45 80 133/82 (97) 90 Vapotherm 20.00 50.00 01/25/23 15:37 92 Vapotherm 20.00 50 01/25/23 15:30 74 148/82 (109) 91 Vapotherm 20.00 50.00 01/25/23 15:15 78 154/95 (119) 90 Vapotherm 20.00 50.00 01/25/23 15:02 76 01/25/23 15:00 76 151/90 (116) 90 Vapotherm 20.00 50.00 01/25/23 14:45 74 149/76 (102) 93 Vapotherm 20.00 50.00 01/25/23 14:30 79 38 155/74 (101) 92 Vapotherm 20.00 50.00 01/25/23 14:15 74 151/89 (116) 93 Vapotherm 20.00 50.00 01/25/23 14:00 76 154/78 (97) 91 Vapotherm 20.00 50.00 01/25/23 13:58 36.2 74 94 50 01/25/23 13:47 Vapotherm 20.00 50.00 01/25/23 13:47 Vapotherm 20.00 50 01/25/23 13:45 74 154/80 (101) 91 Vapotherm 30.00 50.00 01/25/23 13:15 75 30 160/91 (128) 95 Vapotherm 30.00 50.00 01/25/23 13:00 74 11 159/95 (132) 91 Vapotherm 30.00 50.00 01/25/23 12:45 73 12 157/86 (109) 93 Vapotherm 30.00 50.00 01/25/23 12:35 74 16 160/91 94 Vapotherm 01/25/23 12:30 88 12 155/87 (109) 91 Vapotherm 30.00 50.00 01/25/23 11:43 96 30.00 50 01/25/23 11:06 86 Nasal Cannula 8.00 01/25/23 11:06 36.2 86 16 152/95 (114) 86 Nasal Cannula 8.00 Height & Weight Height: '" Weight: 205lbs. 8.0oz. kg; 39.92 BMI Method: General Appearance: Mild Distress, Obese HEENT: PERRL/EOMI, Pharynx Normal Neck: Non Tender, Supple Respiratory: Crackles, Respiratory Distress (Tachypneic), Wheezing Cardiovascular: Regular Rate, Rhythm, No Murmur Capillary Refill: Less Than 3 Seconds Extremity: Normal Range of Motion, Pedal Edema (2+ up to knees bilateral) Neurologic/Psychiatric: Alert, Oriented x3 Results Lab Laboratory Tests 01/25/23 11:20 Assessment/Plan Assessment/Plan 1 JOEY LONDONO MD Jan 25, 2023 17:46
[2023-01-25] MEDS: RT-Ipratropium/Albuterol NEB 3 ML VIAL INH SCH ×2 (18:40→21:59)
[2023-01-25] MEDS: ACETAMINOPHEN 325 MG TABLET PO PRN (21:27)
[2023-01-25] MEDS: SENNOSIDES 8.6 MG TABLET PO SCH (21:27)
[2023-01-25] MEDS: dexAMETHasone INJ 4 MG/ML SDV IV SCH (21:27)
[2023-01-25] MEDS: MELATONIN 3 MG TABLET PO PRN (21:27)
[2023-01-25] MEDS: DOCUSATE SODIUM 100 MG CAPSULE PO SCH (21:27)
[2023-01-26] MEDS: RT-Ipratropium/Albuterol NEB 3 ML VIAL INH SCH ×6 (02:36→21:35)
[2023-01-26 05:28] LABS: BASOPHILS % (AUTO) 0 % (0-10); EOSINOPHILS % (AUTO) 0 % (0-10); HEMATOCRIT 42 % (35-52); HEMOGLOBIN 13.1 g/dL (11.5-16.0); LYMPHOCYTES # (AUTO) 0.3 10^3/uL (1.0-4.0); LYMPHOCYTES % (AUTO) 5 % (12-44); MEAN CORPUSCULAR HEMOGLOBIN 29 pg (25-34); MEAN CORPUSCULAR HGB CONC 31 g/dL (32-36); MEAN CORPUSCULAR VOLUME 95 fL (80-99); MEAN PLATELET VOLUME 10.5 fL (9.0-12.2); MONOCYTES # (AUTO) 0.1 10^3/uL (0.0-1.0); MONOCYTES % (AUTO) 1 % (0-12); NEUTROPHILS # (AUTO) 5.3 10^3/uL (1.8-7.8); NEUTROPHILS % (AUTO) 93 % (42-75); PLATELET COUNT 174 10^3/uL (130-400); WHITE BLOOD COUNT 5.6 10^3/uL (4.3-11.0)
[2023-01-26 05:49] LABS: ALBUMIN 3.4 GM/DL (3.2-4.5); CHLORIDE 96 MMOL/L (98-107); POTASSIUM 4.7 MMOL/L (3.6-5.0); SODIUM 137 MMOL/L (135-145)
[2023-01-26 05:50] LABS: CALCIUM 9.3 MG/DL (8.5-10.1)
[2023-01-26 05:51] LABS: GLUCOSE 170 MG/DL (70-105); TOTAL PROTEIN 6.1 GM/DL (6.4-8.2)
[2023-01-26 05:52] LABS: CARBON DIOXIDE 28 MMOL/L (21-32)
[2023-01-26 05:53] LABS: BILIRUBIN,TOTAL 0.5 MG/DL (0.1-1.0)
[2023-01-26 05:55] LABS: ALKALINE PHOSPHATASE 156 U/L (40-136); CREATININE SERUM 2.08 MG/DL (0.60-1.30); GFR ESTIMATED 23; PHOSPHORUS 4.2 MG/DL (2.3-4.7)
[2023-01-26 05:56] LABS: BUN/CREATININE RATIO 14
[2023-01-26 05:58] LABS: ALANINE AMINOTRANSFERASE 16 U/L (0-55); MAGNESIUM 2.2 MG/DL (1.6-2.4)
[2023-01-26] MEDS: POTASSIUM CHLORIDE 20 MEQ TABLET PO SCH (06:12)
[2023-01-26] MEDS: POTASSIUM CL 10MEQ/50ML IVPB 50 ML IV SCH (06:12)
[2023-01-26] MEDS: MAGNESIUM 1 GM/100 ML IVPB 100 ML IV SCH (06:12)
[2023-01-26 06:22] LABS: ANISOCYTOSIS SLIGHT; LYMPHOCYTES % (MANUAL) 6 %; NEUTROPHILS % (MANUAL) 94 %
[2023-01-26] MEDS: inSUlin ASPART 1 UNIT/0.01 ML (PER UNIT) SC SCH ×4 (06:22→22:07)
--- NOTE | 2023-01-26 08:03 | Diagnostic Imaging Report ---
EXAMINATION: Chest 1 view HISTORY: Respiratory distress COMPARISON: 01/25/2023 FINDINGS: Heart is enlarged. There is a moderate right effusion. There is mild edema. No pneumothorax. IMPRESSION: 1. Enlarged heart with moderate right effusion and mild edema. Dictated by: Dictated on workstation # [id number]
[2023-01-26] MEDS: dexAMETHasone INJ 4 MG/ML SDV IV SCH ×2 (09:25→22:07)
[2023-01-26] MEDS: FUROSEMIDE INJECTION 40 MG/4 ML VIAL IVP SCH ×2 (09:25→17:52)
[2023-01-26] MEDS: SENNOSIDES 8.6 MG TABLET PO SCH ×2 (09:26→22:09)
[2023-01-26] MEDS: DOCUSATE SODIUM 100 MG CAPSULE PO SCH ×3 (09:26→22:10)
[2023-01-26] MEDS: MICONAZOLE 2% POWDER 90 GM TOP SCH ×2 (09:26→22:22)
--- NOTE | 2023-01-26 11:12 | Tele-ICU Progress Note ---
Subjective Date Seen by a Provider: Jan 26, 2023 Time Seen by a Provider: 11:11 Subjective/Events-last exam (Tele-ICU Physician , Progress Note ) Service provided via interactive audio and video telecommunications E-CARE system to a patient admitted to ICU bed in [facility]. Patient is seen today due to persistent need of ICU care Available chart/ vitals / labs / Images reviewed Video assessment done using teleICU camera, rest of exam as per RN Discussed with RN Events overnight : Afebrile hemodynamically stable Respiratory - VT 29L 45% I/O = neg Drips: Pressors- no Hospital course: (01-25) 82 y/o F - Acute COPD Exacerbation/CHF/Hypoxia - on VT 30L 50 % 01/26 - VT 29L 45% A/P Acute hypoxic resp failure ( combinat of AECOPD /CHF - on VTsligtly improved - VT 29L 45% - steroids , nebs , diuresis started - might benefit from right thoracentesis AECOPD (COPD - 3 L o2 baseline ) - IV steroids , nebs CHF - cards consulted -cont diuresis -ECHO EF 50 % , RVSP 50 mmhg RIGHT effusion - large - seen on CT on 12/10- INCREASED -- might benefit from right thoracentesis DNR Lines : , (Central Line Necessity Reviewed) Martha: JUVENAL OG: Nutrition: po Analgesia: Anxiety/ delirium VTE Prophylaxis: sam 30 q24 Stress Ulcer Prophylaxis: Plans in collaboration with bedside consultants and IM MDs. Discussed with RN to reach out if any questions or concerns A total of 20 minutes of critical care time was devoted to this patient today, required to treat and/or prevent further deterioration of critical care condition ( as above ) . I am remotely monitoring this patient from another state. I am unable to do the bedside exam, and history/physical and pertinent information is taken from other notes in the computer and bedside staff. . Sepsis Event Evaluation Height, Weight, BMI Height: '" Weight: 205lbs. 8.0oz. kg; 39.92 BMI Method: Focused Exam Lactate Level 01/25/23 11:20: Lactic Acid Level 1.46 Exam Exam Patient acknowledged, consented, and participated in this virtual visit which was conducted using real time audio/video Vital Signs Date Time Temp Pulse Resp B/P (MAP) Pulse Ox O2 Delivery O2 Flow Rate FiO2 01/26/23 11:00 87 33 162/96 (121) 91 Vapotherm 15.00 40.00 01/26/23 10:18 Vapotherm 15.00 40.00 01/26/23 10:00 90 29 178/90 (111) 94 Vapotherm 20.00 45.00 01/26/23 09:59 90 Vapotherm 15.00 40 01/26/23 09:00 89 17 148/89 (120) Vapotherm 20.00 45.00 01/26/23 08:00 94 Vapotherm 20.00 45 01/26/23 08:00 36.5 01/26/23 08:00 96 28 180/90 (125) 95 Vapotherm 20.00 45.00 01/26/23 07:16 Vapotherm 20.00 45.00 01/26/23 07:07 94 Vapotherm 20.00 45 01/26/23 07:00 90 01/26/23 07:00 91 24 156/81 (105) Vapotherm 20.00 50.00 01/26/23 06:00 85 15 193/96 (128) 94 Vapotherm 20.00 50.00 01/26/23 05:00 89 16 179/98 (125) 95 Vapotherm 20.00 50.00 01/26/23 04:00 89 20 170/87 (114) 95 Vapotherm 20.00 50.00 01/26/23 04:00 94 Vapotherm 20.00 50 01/26/23 04:00 36.6 01/26/23 03:00 80 27 131/75 (93) 94 Vapotherm 20.00 50.00 01/26/23 02:36 94 Vapotherm 20.00 50 01/26/23 02:00 83 21 134/71 (92) 94 Vapotherm 20.00 50.00 01/26/23 01:00 85 21 139/70 (93) 95 Vapotherm 20.00 50.00 01/26/23 01:00 83 01/26/23 00:00 37.0 01/26/23 00:00 80 14 150/85 (106) 95 Vapotherm 20.00 50.00 01/26/23 00:00 93 Vapotherm 20.00 50 01/25/23 23:00 82 15 136/75 (95) 94 Vapotherm 20.00 50.00 01/25/23 22:00 81 26 138/68 (91) 94 Vapotherm 20.00 50.00 01/25/23 21:59 93 Vapotherm 20.00 50 01/25/23 21:00 84 17 144/72 (96) 94 Vapotherm 20.00 50.00 01/25/23 20:00 85 25 137/65 (89) 95 Vapotherm 20.00 50.00 01/25/23 20:00 94 Vapotherm 20.00 50 01/25/23 19:50 36.2 01/25/23 19:00 85 22 130/71 (90) 94 Vapotherm 20.00 50.00 01/25/23 19:00 90 01/25/23 18:41 93 Vapotherm 20.00 50 01/25/23 18:00 83 133/72 (92) 94 Vapotherm 20.00 50.00 01/25/23 17:00 83 143/81 (101) 93 Vapotherm 20.00 50.00 01/25/23 16:00 79 153/81 (105) 92 Vapotherm 20.00 50.00 01/25/23 16:00 Vapotherm 20.00 50 01/25/23 15:45 80 133/82 (97) 90 Vapotherm 20.00 50.00 01/25/23 15:37 92 Vapotherm 20.00 50 01/25/23 15:30 74 148/82 (109) 91 Vapotherm 20.00 50.00 01/25/23 15:15 78 154/95 (119) 90 Vapotherm 20.00 50.00 01/25/23 15:02 76 01/25/23 15:00 76 151/90 (116) 90 Vapotherm 20.00 50.00 01/25/23 14:45 74 149/76 (102) 93 Vapotherm 20.00 50.00 01/25/23 14:30 79 38 155/74 (101) 92 Vapotherm 20.00 50.00 01/25/23 14:15 74 151/89 (116) 93 Vapotherm 20.00 50.00 01/25/23 14:00 76 154/78 (97) 91 Vapotherm 20.00 50.00 01/25/23 13:58 36.2 74 94 50 01/25/23 13:47 Vapotherm 20.00 50.00 01/25/23 13:47 Vapotherm 20.00 50 01/25/23 13:45 74 154/80 (101) 91 Vapotherm 30.00 50.00 01/25/23 13:15 75 30 160/91 (128) 95 Vapotherm 30.00 50.00 01/25/23 13:00 74 11 159/95 (132) 91 Vapotherm 30.00 50.00 01/25/23 12:45 73 12 157/86 (109) 93 Vapotherm 30.00 50.00 01/25/23 12:35 74 16 160/91 94 Vapotherm 01/25/23 12:30 88 12 155/87 (109) 91 Vapotherm 30.00 50.00 01/25/23 11:43 96 30.00 50 I & O 01/26/23 07:00 Intake Total 725 ml Output Total 1000 ml Balance -275 ml Height & Weight Height: '" Weight: 205lbs. 8.0oz. kg; 39.92 BMI Method: General Appearance: Anxious, Chronically ill, Mild Distress, Obese HEENT: PERRL/EOMI, Pharynx Normal Neck: Non Tender, Supple Respiratory: Crackles, Decreased Breath Sounds, Respiratory Distress (Tachypneic), Wheezing Cardiovascular: Regular Rate, Rhythm, No Murmur Capillary Refill: Less Than 3 Seconds Extremity: Normal Range of Motion, Pedal Edema (2+ up to knees bilateral) Neurologic/Psychiatric: Alert, Oriented x3 Results Lab Laboratory Tests 01/25/23 11:20 01/26/23 03:47 Assessment/Plan Assessment/Plan 1 JOEY LONDONO MD Jan 26, 2023 11:12
[2023-01-26] MEDS ORDERED: VANCOMYCIN INJECTION 0.1 MG in NS (IVPB) 250 ML 250 ML IV SCH (12:00)
--- NOTE | 2023-01-26 12:22 | Progress Note - Hospitalist ---
LAURENCE WANG 01/26/23 1222: Subjective HPI/CC On Admission Date Seen by Provider: Jan 26, 2023 Time Seen by Provider: 09:35 Chief complaint: Acute hypoxic respiratory failure requiring Vapotherm HPI: This is an 82-year-old female who has a past medical history of respiratory failure maintained on oxygen at home and congestive heart failure who presented with progressive shortness of breath with anasarca requiring ER evaluation. She was just hospitalized 6 weeks ago with similar issues. She was assessed to have congestive heart failure in need of IV diuresis in ICU and Vapotherm. Daughter at the bedside understands the plan along with the patient. Subjective/Events-last exam Pt stated that she is feeling slightly better, but is still having trouble breathing. She denies chest pain and palpitations and endorses shortness of breath and cough. Pt is on vapotherm with 20L/45FiO2 and had blood cultures that were positive for coagulase negative staphylococci. CXR shows right sided pleural effusion that is chronic in nature. Dr. Layton was consulted about pleural effusion. Review of Systems Pulmonary: Dyspnea, Cough Cardiovascular: Edema (same as baseline); No: Chest Pain, Palpitations Focused Exam Lactate Level 01/25/23 11:20: Lactic Acid Level 1.46 Objective Exam Vital Signs Vital Signs Date Time Temp Pulse Resp B/P (MAP) Pulse Ox O2 Delivery O2 Flow Rate FiO2 01/26/23 13:00 96 32 182/95 (140) Vapotherm 20.00 40.00 01/26/23 12:00 92 01/26/23 09:59 40 01/26/23 08:00 36.5 Capillary Refill : Less Than 3 Seconds General Appearance: Anxious, Chronically ill, Moderate Distress, Obese Respiratory: Accessory Muscle Use, Respiratory Distress (mild), Wheezing (inspiratory and expiratory b/l) Cardiovascular: Regular Rate, Rhythm, No Murmur Results/Procedures Lab Laboratory Tests 01/26/23 03:47 Patient resulted labs reviewed. Assessment/Plan Assessment and Plan Assess & Plan/Chief Complaint Assessment 1. Acute on Chronic Diastolic CHF 2. COPD Exacerbation 3. Acute on Chronic Respiratory Failure 4. MARY 5. Bacteremia Plan 1.Lasix 2. Cardio Consult 3. Vapotherm 4. Abx LEONOR ROSE DO 01/26/232106: Subjective Subjective/Events-last exam Patient doing really well Maintain on Vapotherm but weaning down Lungs are very coarse Hypertension will be treated Objective Exam General Appearance: No Apparent Distress, WD/WN, Chronically ill Respiratory: Decreased Breath Sounds, Rales, Wheezing (inspiratory and expiratory b/l) Cardiovascular: Regular Rate, Rhythm Neurologic/Psychiatric: Alert, Oriented x3 Assessment/Plan Assessment and Plan Assess & Plan/Chief Complaint Maintain ICU Vapotherm BiPAP May need to be intubated Supervisory-Addendum Brief Verification & Attestation Participated in pt care: history, MDM, physical Personally performed: exam, history, MDM, supervision of care Care discussed with: Medical Student Procedures: n/a Results interpretation: Verified all documentation Verification and Attestation of Medical Student E/M Service A medical student performed and documented this service in my presence. I reviewed and verified all information documented by the medical student and made modifications to such information, when appropriate. I personally performed the physical exam and medical decision making. Leonor Rose, Jan 26, 2023,21:06 LAURENCE WANG Jan 26, 2023 12:22 LEONOR ROSE DO Jan 26, 2023 21:07
[2023-01-26] MEDS ORDERED: VANCOMYCIN 1,750 MG/NS 500 ML IVPB IV ONE ×2 (12:30)
[2023-01-26] MEDS: ACETAMINOPHEN 325 MG TABLET PO PRN (14:03)
--- NOTE | 2023-01-26 17:33 | Cardiology Progress Note ---
Cardiology SOAP Progress Note Subjective: Slightly improved shortness of breath. Objective: I&O/Vital Signs 01/26/23 01/26/23 01/26/23 01/26/23 06:00 07:00 07:00 07:07 Pulse 85 91 90 Resp 15 24 B/P (MAP) 193/96 (128) 156/81 (105) Pulse Ox 94 94 O2 Delivery Vapotherm Vapotherm Vapotherm O2 Flow Rate 20.00 20.00 20.00 50.00 50.00 FiO2 45 01/26/23 01/26/23 01/26/23 01/26/23 07:16 08:00 08:00 08:00 Temp 36.5 Pulse 96 Resp 28 B/P (MAP) 180/90 (125) Pulse Ox 95 94 O2 Delivery Vapotherm Vapotherm Vapotherm O2 Flow Rate 20.00 20.00 20.00 45.00 45.00 FiO2 45 01/26/23 01/26/23 01/26/23 01/26/23 09:00 09:59 10:00 10:18 Pulse 89 90 Resp 17 29 B/P (MAP) 148/89 (120) 178/90 (111) Pulse Ox 90 94 O2 Delivery Vapotherm Vapotherm Vapotherm Vapotherm O2 Flow Rate 20.00 15.00 20.00 15.00 45.00 45.00 40.00 FiO2 40 01/26/23 01/26/23 01/26/23 01/26/23 11:00 12:00 12:00 12:24 Temp 36.6 Pulse 87 90 98 Resp 33 27 B/P (MAP) 162/96 (121) 159/85 (110) Pulse Ox 91 92 O2 Delivery Vapotherm Vapotherm O2 Flow Rate 15.00 15.00 40.00 40.00 01/26/23 01/26/23 01/26/23 01/26/23 12:42 13:00 14:00 14:00 Pulse 96 96 Resp 32 23 B/P (MAP) 182/95 (140) 173/96 (115) Pulse Ox 92 O2 Delivery Vapotherm Vapotherm Vapotherm Vapotherm O2 Flow Rate 20.00 20.00 20.00 20.00 40.00 40.00 40.00 FiO2 40 01/26/23 01/26/23 01/26/23 01/26/23 15:00 16:00 16:00 17:00 Temp 36.3 Pulse 98 99 103 Resp 24 25 30 B/P (MAP) 166/108 (127) 174/97 (120) 179/97 (118) Pulse Ox 93 O2 Delivery Vapotherm Vapotherm Vapotherm O2 Flow Rate 20.00 20.00 20.00 40.00 40.00 40.00 01/26/23 00:00 Intake Total 650 ml Output Total 900 ml Balance -250 ml Weight (Pounds): 205 Weight (Ounces): 8.0 Constitutional: AAO x 3 Respiratory: respiratory distress, wheezing Cardiovascular: regular rate-rhythm, tachycardia Neurologic/Psychiatric: alert, normal mood/affect, oriented x 3 Skin: normal color, warm/dry Results/Procedures: Labs Laboratory Tests 01/25/23 17:51: Troponin I < 0.028 01/25/23 20:53: Glucometer 232H 01/26/23 03:47: Troponin I < 0.028, White Blood Count 5.6, Red Blood Count 4.45, Hemoglobin 13.1, Hematocrit 42, Mean Corpuscular Volume 95, Mean Corpuscular Hemoglobin 29, Mean Corpuscular Hemoglobin Concent 31L, Red Cell Distribution Width 14.4, Platelet Count 174, Mean Platelet Volume 10.5, Immature Granulocyte % (Auto) 0, Neutrophils (%) (Auto) 93H, Lymphocytes (%) (Auto) 5L, Monocytes (%) (Auto) 1, Eosinophils (%) (Auto) 0, Basophils (%) (Auto) 0, Neutrophils # (Auto) 5.3, Lymphocytes # (Auto) 0.3L, Monocytes # (Auto) 0.1, Eosinophils # (Auto) 0.0, Basophils # (Auto) 0.0, Immature Granulocyte # (Auto) 0.0, Neutrophils % (Manual) 94, Lymphocytes % (Manual) 6, Anisocytosis SLIGHT, Sodium Level 137, Potassium Level 4.7, Chloride Level 96L, Carbon Dioxide Level 28, Anion Gap 13, Blood Urea Nitrogen 29H, Creatinine 2.08H, Estimat Glomerular Filtration Rate 23, BUN/Creatinine Ratio 14, Glucose Level 170H, Calcium Level 9.3, Corrected Calcium 9.8, Phosphorus Level 4.2, Magnesium Level 2.2, Total Bilirubin 0.5, Aspartate Amino Transf (AST/SGOT) 14, Alanine Aminotransferase (ALT/SGPT) 16, Alkaline Phosphatase 156H, Total Protein 6.1L, Albumin 3.4 01/26/23 10:54: Glucometer 190H 01/26/23 16:31: Glucometer 177H Microbiology 01/25/23 MRSA Screen - Final, Complete MRSA not isolated 01/25/23 Blood Culture - Preliminary, Resulted A/P: Assessment/Dx: Acute respiratory failure, COPD exacerbation, Possible acute on chronic systolic congestive heart failure, Pulmonary hypertension Acute on chronic kidney injury, Borderline positive troponin Plan: Acute respiratory failure likely due to COPD exacerbation. Patient is an active smoker. Smoking cessation was strongly recommended. Possible acute on chronic systolic congestive heart failure. Echocardiogram shows an EF of 45 to 50%. Mildly elevated BNP. Could be due to RV strain. Pulmonary hypertension likely secondary to severe COPD. Acute on chronic kidney disease. Borderline positive troponin: Serial troponin is negative. Possibility of type II ND. Discussed at length with the patient Focused Exam Lactate Level 01/25/23 11:20: Lactic Acid Level 1.46 Blane TOMAS MD Jan 26, 2023 17:32
[2023-01-26] MEDS ORDERED: LIDOCAINE 1% INJ 20 ML VIAL ONE (18:20)
[2023-01-26] MEDS ORDERED: fentaNYL INJECTION 100 MCG/2 ML VIAL IVP PRN (19:45)
--- NOTE | 2023-01-26 19:57 | Diagnostic Imaging Report ---
INDICATION: Status post thoracentesis. COMPARISON: 01/26/2023. FINDINGS: When compared to today's earlier examination, the volume of right-sided pleural fluid has decreased. There is no right pneumothorax. Pulmonary vascular congestion and heart size are unchanged. IMPRESSION: Decreased size of the patient's right-sided pleural effusion status post thoracentesis. There is no pneumothorax. Dictated by: Dictated on workstation # [id number]
--- NOTE | 2023-01-26 20:09 | CONSULTATION REPORT ---
DATE OF SERVICE: 01/26/2023 ATTENDING PRIMARY CARE PHYSICIAN: Dr. Alejandra Wooten. ADMITTING PHYSICIAN: Dr. Rose. HISTORY OF PRESENT ILLNESS: The patient is an 82-year-old female who presented to the emergency department with shortness of breath. She is oxygen dependent and usually is on 3 liters nasal cannula. However, in the past day, she has required 8 liters to maintain her oxygen saturations. The patient does have a history of heart failure as well as COPD. She has also had a history of recurrent pleural effusions. She reports that this was significantly frequent on the left side and she underwent a tunneled catheter placement; however, after some time, the drainage decreased and the catheter was then removed. On presentation this time, the chest x-ray did show moderate size right pleural effusion. She does have a chronic cough. This is nonproductive. PAST MEDICAL HISTORY: COPD, congestive heart failure, hypertension, bilateral lower extremity edema, chronic kidney disease, history of myocardial infarction, neuropathy, history of TIA. PAST SURGICAL HISTORY: Tonsillectomy, appendectomy, cholecystectomy, aortogram with bilateral runoff with lower extremity angioplasty and stent placement, bladder suspension, lumbar back surgery, cataracts, tonsillectomy. ALLERGIES: No known drug allergies. MEDICATIONS: Albuterol inhaler 2 puffs q.6 hours p.r.n., allopurinol 100 mg daily, atorvastatin 80 mg daily, carvedilol 6.25 mg b.i.d., cefdinir 300 mg daily, cetirizine 10 mg daily, clonazepam 1 mg daily, diltiazem 300 mg daily, Colace 100 mg b.i.d., iron 325 mg b.i.d., furosemide 40 mg daily, fluticasone and umeclidinium 100/62.5 mg 1 puff daily, prednisone 10 mg daily. SOCIAL HISTORY: Positive smoke 60 pack years, negative alcohol. FAMILY HISTORY: Noncontributory. VITAL SIGNS: Temperature 36.3, blood pressure 178/93, pulse 110, respirations 24, pulse ox 92% on 20 liters on Ventimask. REVIEW OF SYSTEMS: A nourished female who currently appears to be short of breath or using accessory muscles for respiration. She does have intermittent mild cough; however, nonproductive. No chest pain, palpitations, diaphoresis. No nausea, vomiting, with history of constipation, no red blood per rectum, no dark tarry stools. No fever, chills, no recent inadvertent weight loss. All other review of systems negative. PHYSICAL EXAMINATION: CHEST: Decreased right sided decreased breath sounds and scattered wheezes and rhonchi, scattered wheezes and rhonchi bilaterally. HEART: Regular. No murmurs. EXTREMITIES: Plus 1/3 bilateral lower extremity edema. Negative Homans sign. HEENT: No scleral icterus. No cervical lymphadenopathy. ABDOMEN: Soft, but with a large reducible incisional hernia. SKIN: Warm, dry. LABORATORY DATA: WBC 5.6, hemoglobin 13.1, hematocrit 42, platelets 174. BUN 29, creatinine 2.08, glucose 177. ASSESSMENT AND PLAN: An 82-year-old female with a recurrent symptomatic pleural effusion. This time around the effusion has developed on the right side, likely secondary to congestive heart failure. We will proceed with thoracentesis and send the fluid again off for laboratory analysis as well as cytology. Job ID: [id number] DocumentID: [id number] Dictated Date: 01/26/2023 19:44:45 Signaler Date: 01/26/2023 20:07:00 Dictated By: SKIP ORTEGA MD
[2023-01-26 20:27] LABS: BODY FLUID COLOR YELLOW; BODY FLUID RBC COUNT 0.004 10^6/uL; BODY FLUID WBC TOTAL COUNT 0.319 10^3/uL
[2023-01-26 20:28] LABS: BODY FLUID APPEARENCE SLT CLDY; BODY FLUID SOURCE THORACEN
[2023-01-26] MEDS ORDERED: CALCITRIOL 0.25 MCG CAPSULE PO SCH (20:30)
[2023-01-26] MEDS ORDERED: DOCUSATE SODIUM 100 MG CAPSULE PO PRN (20:30)
[2023-01-26] MEDS ORDERED: amLODIPine 5 MG TABLET PO ONE (20:30)
[2023-01-26 20:31] LABS: TOTAL PROTEIN,BODY FLUID 3.2 G/DL
[2023-01-26 21:58] LABS: BODY FLUID PH 7.7
[2023-01-26] MEDS: dilTIAZem ER 300 MG CAPSULE PO SCH (22:08)
[2023-01-26] MEDS: FERROUS SULFATE 325 MG (IRON) TABLET PO SCH (22:08)
[2023-01-26] MEDS: clonazePAM 1 MG TABLET PO SCH (22:08)
[2023-01-26] MEDS: carvediloL 6.25 MG TABLET PO SCH (22:08)
[2023-01-26] MEDS: hydrALAZINE 25 MG TABLET PO SCH (22:10)
[2023-01-27] MEDS: RT-Ipratropium/Albuterol NEB 3 ML VIAL INH SCH ×6 (03:07→21:51)
--- NOTE | 2023-01-27 03:16 | OPERATIVE REPORT ---
DATE OF SERVICE: 01/26/2023 ATTENDING PRIMARY CARE PHYSICIAN: Dr. Alejandra Wooten. ADMITTING PHYSICIAN: Leonor Rose DO PREOPERATIVE DIAGNOSIS: Recurrent symptomatic right pleural effusion. POSTOPERATIVE DIAGNOSES: Recurrent symptomatic right pleural effusion. PROCEDURE: Right thoracentesis. SURGEON: Skip Layton MD ANESTHESIA: Local. ESTIMATED BLOOD LOSS: Minimal. FINDINGS: A 2000 mL of straw yellow transudative fluid. DISPOSITION: The patient tolerated the procedure well. INDICATIONS: The patient is an 82-year-old female with history of COPD, congestive heart failure and recurrent pleural effusions. She presented to the Emergency Department with increasing shortness of breath and was found to have a moderate size right pleural effusion. The patient was also found to be in atrial fibrillation. Since being admitted and placed on a Ventimask, her shortness of breath has improved; however, she does continue to struggle on an intermittent basis. Before the procedure, ultrasonography was performed and the posterior aspect of the back was marked for thoracentesis. DESCRIPTION OF PROCEDURE: The patient was sat upright and the back was prepped and draped in standard surgical fashion. 1% lidocaine was then used to anesthetize the skin, subcutaneous tissue and muscle layers as well as the parietal pleura. A transverse skin incision was then made using an 11 blade. The catheter and trocar were then introduced withdrawing of straw yellow fluid. Catheter was then advanced trocar without any resistance. Catheter was then connected to tubing and vacuum bottle where 200 mL of straw yellow transudative fluid was evacuated. Once evacuated, Op-Site and direct pressure were placed over the tube site under positive pressure ventilation. The catheter was removed. Good hemostasis was observed. The patient tolerated the procedure well. We will get a post-procedure chest x-ray. Job ID: [id number] DocumentID: [id number] Dictated Date: 01/26/2023 19:48:05 Crematory Operator Date: 01/27/2023 03:14:00 Dictated By: SKIP LAYTON MD
[2023-01-27] MEDS: MELATONIN 3 MG TABLET PO PRN ×2 (03:30→22:01)
[2023-01-27] MEDS: ACETAMINOPHEN 325 MG TABLET PO PRN ×3 (03:31→09:56)
[2023-01-27 03:47] LABS: ABG BASE EXCESS 8.7 MMOL/L (-2.5-2.5); ABG OXYGEN SATURATION 100 % (94-100); ABG PCO2 59 MMHG (35-45); ABG PH 7.38 (7.37-7.43); ABG PO2 167 MMHG (79-93); ABG TCO2 35.7 MMOL/L (21.0-31.0)
[2023-01-27 03:48] LABS: ALLENS TEST YES-POS; INSPIRED O2 100%; VENTILATOR NO
[2023-01-27 04:42] LABS: BASOPHILS % (AUTO) 0 % (0-10); EOSINOPHILS % (AUTO) 0 % (0-10); HEMATOCRIT 43 % (35-52); HEMOGLOBIN 13.4 g/dL (11.5-16.0); LYMPHOCYTES # (AUTO) 0.3 10^3/uL (1.0-4.0); LYMPHOCYTES % (AUTO) 3 % (12-44); MEAN CORPUSCULAR HEMOGLOBIN 30 pg (25-34); MEAN CORPUSCULAR HGB CONC 31 g/dL (32-36); MEAN CORPUSCULAR VOLUME 95 fL (80-99); MEAN PLATELET VOLUME 10.5 fL (9.0-12.2); MONOCYTES # (AUTO) 0.2 10^3/uL (0.0-1.0); MONOCYTES % (AUTO) 2 % (0-12); NEUTROPHILS # (AUTO) 12.4 10^3/uL (1.8-7.8); NEUTROPHILS % (AUTO) 95 % (42-75); PLATELET COUNT 176 10^3/uL (130-400)
[2023-01-27 04:59] LABS: ALBUMIN 3.3 GM/DL (3.2-4.5); POTASSIUM 4.8 MMOL/L (3.6-5.0)
[2023-01-27 05:00] LABS: CALCIUM 9.2 MG/DL (8.5-10.1)
[2023-01-27 05:01] LABS: TOTAL PROTEIN 5.9 GM/DL (6.4-8.2)
[2023-01-27 05:05] LABS: CREATININE SERUM 1.94 MG/DL (0.60-1.30)
[2023-01-27 05:08] LABS: MAGNESIUM 2.2 MG/DL (1.6-2.4)
[2023-01-27] MEDS: POTASSIUM CL 10MEQ/50ML IVPB 50 ML IV SCH (05:11)
[2023-01-27] MEDS: MAGNESIUM 1 GM/100 ML IVPB 100 ML IV SCH (05:11)
[2023-01-27 05:12] LABS: LYMPHOCYTES % (MANUAL) 2 %; MONOCYTES % (MANUAL) 1 %; NEUTROPHILS % (MANUAL) 97 %
[2023-01-27] MEDS: POTASSIUM CHLORIDE 20 MEQ TABLET PO SCH (05:12)
[2023-01-27 05:48] LABS: BILIRUBIN,TOTAL 0.3 MG/DL (0.1-1.0)
[2023-01-27] MEDS: FUROSEMIDE INJECTION 40 MG/4 ML VIAL IVP SCH ×2 (06:10→18:10)
[2023-01-27] MEDS: inSUlin ASPART 1 UNIT/0.01 ML (PER UNIT) SC SCH ×4 (06:10→20:55)
--- NOTE | 2023-01-27 07:45 | Tele-ICU Progress Note ---
Progress Note video rounds completed. 82 y/o female admitted with COPD exacerbation and systolic HF with EF of 45-50% Being followed by cardiology Tele-ICU Physician , Progress Note ) Service provided via interactive audio and video telecommunications E-CARE system to a patient admitted to ICU bed in [facility]. Patient is seen today due to persistent need of ICU care Available chart/ vitals / labs / Images reviewed Video assessment done using teleICU camera, rest of exam as per RN Discussed with RN Events overnight : Afebrile hemodynamically stable BP: 141/76 O2 sat 90% sitting up in bed eating breakfast Appears in no acute distress. IMP: COPD exacerbation CHF with systolic HF PLAN: Continue current management \\No acute Changes Time spent in review 15 minytes Focused Exam Lactate Level 01/25/23 11:20: Lactic Acid Level 1.46 Height, Weight, BMI Height: '" Weight: 205lbs. 8.0oz. kg; 40.12 BMI Method: Labs Laboratory Tests 01/27/23 04:00 Results Results/Procedures Labs Laboratory Tests 01/25/23 11:20 01/26/23 03:47 01/27/23 04:00 Patient resulted labs reviewed. Results Labs Labs Laboratory Tests 01/26/23 10:54: Glucometer 190H 01/26/23 16:31: Glucometer 177H 01/26/23 19:30: Body Fluid Source THORACEN, Body Fluid Color YELLOW, Body Fluid Appearance SLT CLDY, Body Fluid pH 7.7, Body Fluid WBC 0.319, Body Fluid RBC 0.004, Body Fl Polynuclear WBCs (%)(Auto) 27.5, Body Fluid Mononuclear Cells % Auto 72.5, Body Fluid Slide Review Yes, Body Fluid Glucose 211, Body Fluid Total Protein 3.2, Body Fluid Albumin 2.0, Body Fluid Lactate Dehydrogenase 104 01/26/23 21:08: Glucometer 201H 01/27/23 03:17: Blood Gas Puncture Site RIGHT RADIAL, Blood Gas Patient Temperature UNKNOWN, Art erial Blood pH 7.38, Arterial Blood Partial Pressure CO2 59H, Arterial Blood Partial Pressure O2 167H, Arterial Blood HCO3 34H, Arterial Blood Total CO2 35.7H, Arterial Blood Oxygen Saturation 100, Arterial Blood Base Excess 8.7H, Xavier Test YES-POS, Blood Gas Ventilator Setting NO, Blood Gas Inspired Oxygen 100% 01/27/23 04:00: White Blood Count 13.0H, Red Blood Count 4.51, Hemoglobin 13.4, Hematocrit 43, Mean Corpuscular Volume 95, Mean Corpuscular Hemoglobin 30, Mean Corpuscular Hemoglobin Concent 31L, Red Cell Distribution Width 14.2, Platelet Count 176, Mean Platelet Volume 10.5, Immature Granulocyte % (Auto) 0, Neutrophils (%) (A uto) 95H, Lymphocytes (%) (Auto) 3L, Monocytes (%) (Auto) 2, Eosinophils (%) (Auto) 0, Basophils (%) (Auto) 0, Neutrophils # (Auto) 12.4H, Lymphocytes # (Auto) 0.3L, Monocytes # (Auto) 0.2, Eosinophils # (Auto) 0.0, Basophils # (Auto) 0.0, Immature Granulocyte # (Auto) 0.1, Neutrophils % (Manual) 97, Lymphocytes % (Manual) 2, Monocytes % (Manual) 1, Sodium Level 138, Potassium Level 4.8, Chloride Level 97L, Carbon Dioxide Level 30, Anion Gap 11, Blood Urea Nitrogen 37H, Creatinine 1.94H, Estimat Glomerular Filtration Rate 25, BUN/Creatinine Ratio 19, Glucose Level 178H, Calcium Level 9.2, Corrected Calcium 9.8, Phosphorus Level 4.0, Magnesium Level 2.2, Total Bilirubin 0.3, Aspartate Amino Transf (AST/SGOT) 13, Alanine Aminotransferase (ALT/SGPT) 16, Alkaline Phosphatase 133, Total Protein 5.9L, Albumin 3.3 Microbiology 01/25/23 MRSA Screen - Final, Complete MRSA not isolated 01/25/23 Blood Culture - Preliminary, Resulted WADE NEW MD Jan 27, 2023 07:45
[2023-01-27] MEDS ORDERED: UMECLIDINIUM BROMIDE (INCRUSE ELLIPTA) 7'S IH SCH (08:00)
[2023-01-27] MEDS: FERROUS SULFATE 325 MG (IRON) TABLET PO SCH ×2 (09:25→20:54)
[2023-01-27] MEDS: LORATADINE 10 MG TABLET PO SCH (09:26)
[2023-01-27] MEDS: ALLOPURINOL 100 MG TABLET PO SCH (09:26)
[2023-01-27] MEDS: hydrALAZINE 25 MG TABLET PO SCH ×3 (09:26→20:54)
[2023-01-27] MEDS: amLODIPine 5 MG TABLET PO SCH (09:27)
[2023-01-27] MEDS: carvediloL 6.25 MG TABLET PO SCH ×2 (09:27→18:09)
[2023-01-27] MEDS: dexAMETHasone INJ 4 MG/ML SDV IV SCH ×2 (09:27→20:54)
[2023-01-27] MEDS: DOCUSATE SODIUM 100 MG CAPSULE PO SCH ×2 (09:28→20:54)
[2023-01-27] MEDS: SENNOSIDES 8.6 MG TABLET PO SCH ×2 (09:28→20:54)
[2023-01-27] MEDS: MICONAZOLE 2% POWDER 90 GM TOP SCH ×2 (09:29→20:55)
--- NOTE | 2023-01-27 09:49 | Progress Note ---
ROSA TRAMMELL MD 01/27/23 0949: Subjective HPI/CC On Admission Chief complaint: Acute hypoxic respiratory failure requiring Vapotherm HPI: This is an 82-year-old female who has a past medical history of respiratory failure maintained on oxygen at home and congestive heart failure who presented with progressive shortness of breath with anasarca requiring ER evaluation. She was just hospitalized 6 weeks ago with similar issues. She was assessed to have congestive heart failure in need of IV diuresis in ICU and Vapotherm. Pt reports doing the same today. Denies CP, N/V, chills, fevers. She says her breathing is the same as yesterday. Focused Exam Lactate Level 01/25/23 11:20: Lactic Acid Level 1.46 Objective Exam Vital Signs Vital Signs Date Time Temp Pulse Resp B/P (MAP) Pulse Ox O2 Delivery O2 Flow Rate FiO2 01/27/23 12:00 94 28 130/74 (96) 94 Vapotherm 20.00 100.00 01/27/23 11:55 36.3 01/27/23 10:13 40 Capillary Refill : Less Than 3 Seconds General Appearance: No Apparent Distress, WD/WN HEENT: Pharynx Normal Neck: Full Range of Motion Respiratory: Chest Non Tender, No Accessory Muscle Use, No Respiratory Distress, Decreased Breath Sounds, Rhonci Cardiovascular: Regular Rate, Rhythm, No Edema, No Murmur, Normal Peripheral Pulses Gastrointestinal: Non Tender, Soft Neurologic/Psychiatric: Alert, Oriented x3, Normal Mood/Affect Skin: Normal Color, Warm/Dry Results/Procedures Lab Laboratory Tests 01/27/23 04:00 Patient resulted labs reviewed. Imaging: Reviewed Imaging Report Assessment/Plan Assessment and Plan Assess & Plan/Chief Complaint Assessment: Acute on chronic respiratory failure requiring Vapotherm Acute on chronic congestive heart failure Pleural effusion Chronic kidney disease NSTEMI likely type II MS COPD with exacerbation WBC elevated to 13 today Likely Staph bacillus bacteremia (2/3 bottles positive gram stain) Plan: IV Lasix Cardiology consult General surgery consulted - s/p R thoracentesis Continue Vapotherm Will transfer to 4th floor for further management Will add cefepime Diagnosis/Problems Diagnosis/Problems (1) Acute on chronic diastolic (congestive) heart failure Status: Acute (2) Dyspnea (3) Pleural effusion Status: Acute (4) Acute and chronic respiratory failure with hypoxia Status: Acute (5) HTN (hypertension) Status: Chronic (6) HLD (hyperlipidemia) Status: Chronic (7) COPD exacerbation Status: Acute (8) DVT prophylaxis Status: Acute (9) Renal failure (ARF), acute on chronic Status: Acute (10) CAP (community acquired pneumonia) Status: Acute VICKY CHAVIRA DO 01/27/23 1648: Subjective HPI/CC On Admission Date Seen by Provider: Jan 27, 2023 Time Seen by Provider: 11:00 Subjective/Events-last exam Improve overall Vapotherm weaning No falls No BM Cath in place Objective Exam General Appearance: No Apparent Distress, WD/WN, Chronically ill Respiratory: Decreased Breath Sounds, Wheezing Cardiovascular: Regular Rate, Rhythm Assessment/Plan Assessment and Plan Assess & Plan/Chief Complaint Move to 4th floor Vapotherm ADd Cefepime ROSA TRAMMELL MD Jan 27, 2023 09:49 VICKY CHAVIRA DO Jan 27, 2023 16:48
[2023-01-27] MEDS: FLUTICASONE/VILANTEROL 100/25 MCG (7 DOSES) IH SCH (10:05)
[2023-01-27] MEDS: TIOTROPIUM INH 4 GM (SPIRIVA Respimat) IH SCH (10:05)
--- NOTE | 2023-01-27 11:18 | Progress Note ---
Subjective Date Seen by a Provider: Jan 27, 2023 Time Seen by a Provider: 11:00 Subjective/Events-last exam breathing better. still has some exertional SOB. no cough/sputum. Focused Exam Lactate Level 01/25/23 11:20: Lactic Acid Level 1.46 Objective Exam Vital Signs Date Time Temp Pulse Resp B/P (MAP) Pulse Ox O2 Delivery O2 Flow Rate FiO2 01/27/23 11:00 89 24 143/75 (95) 91 Vapotherm 20.00 100.00 01/27/23 10:13 92 Vapotherm 20.00 40 01/27/23 10:12 92 Vapotherm 20.00 40 01/27/23 10:05 93 Vapotherm 20.00 45 01/27/23 10:00 92 21 141/76 (88) 94 Vapotherm 20.00 100.00 01/27/23 09:00 86 154/79 (104) 95 Vapotherm 20.00 100.00 01/27/23 08:00 Vapotherm 20.00 100 01/27/23 08:00 92 138/75 (94) 92 Vapotherm 20.00 100.00 01/27/23 07:59 36.2 01/27/23 07:00 76 01/27/23 07:00 76 135/69 (90) 93 Vapotherm 20.00 100.00 01/27/23 06:27 92 Vapotherm 20.00 45 01/27/23 06:00 68 118/55 (76) 93 Vapotherm 20.00 100.00 01/27/23 05:00 72 36 117/59 (78) 93 Vapotherm 20.00 100.00 01/27/23 04:00 87 25 106/57 (73) 94 Vapotherm 20.00 100.00 01/27/23 04:00 Vapotherm 20.00 100 01/27/23 03:07 96 Vapotherm 20.00 45 01/27/23 03:00 96 25 137/69 (91) 96 Vapotherm 20.00 100.00 01/27/23 02:00 96 13 134/71 (92) 94 Vapotherm 20.00 100.00 01/27/23 01:00 100 01/27/23 01:00 99 14 145/70 (95) 96 Vapotherm 20.00 100.00 01/27/23 00:00 98 14 179/88 (118) 96 Vapotherm 20.00 100.00 01/26/23 23:46 Vapotherm 20.00 100 01/26/23 23:00 101 23 189/90 (123) 96 Vapotherm 20.00 100.00 01/26/23 22:00 106 20 161/97 (118) 95 Vapotherm 20.00 100.00 01/26/23 21:35 99 Vapotherm 20.00 100 01/26/23 21:00 108 20 174/86 (115) 99 Vapotherm 20.00 100.00 01/26/23 20:20 36.4 108 178/88 (118) 100 Vapotherm 100.00 01/26/23 20:00 Vapotherm 20.00 100 01/26/23 20:00 36.4 01/26/23 19:00 111 20 168/92 (117) 97 Vapotherm 20.00 40.00 01/26/23 19:00 110 01/26/23 18:43 92 Vapotherm 20.00 40 01/26/23 18:00 110 24 178/93 (119) Vapotherm 20.00 40.00 01/26/23 17:00 103 30 179/97 (118) 93 Vapotherm 20.00 40.00 01/26/23 16:00 36.3 01/26/23 16:00 94 Vapotherm 20.00 45 01/26/23 16:00 99 25 174/97 (120) Vapotherm 20.00 40.00 01/26/23 15:00 98 24 166/108 (127) Vapotherm 20.00 40.00 01/26/23 14:00 96 23 173/96 (115) Vapotherm 20.00 40.00 01/26/23 14:00 92 Vapotherm 20.00 40 01/26/23 13:00 96 32 182/95 (140) Vapotherm 20.00 40.00 01/26/23 12:42 Vapotherm 20.00 40.00 01/26/23 12:24 98 01/26/23 12:00 90 27 159/85 (110) 92 Vapotherm 15.00 40.00 01/26/23 12:00 94 Vapotherm 20.00 45 01/26/23 12:00 36.6 I & O 01/27/23 06:59 Intake Total 2567.5 ml Output Total 2700 ml Balance -132.5 ml Capillary Refill : Less Than 3 Seconds General Appearance: No Apparent Distress HEENT: PERRL/EOMI Neck: Full Range of Motion Respiratory: Decreased Breath Sounds, Rhonci, Wheezing Cardiovascular: Regular Rate, Rhythm Gastrointestinal: normal bowel sounds, non tender, soft Extremity: Normal Capillary Refill Neurologic/Psychiatric: Alert, Oriented x3 Skin: Normal Color Lymphatic: No Adenopathy Results Lab Laboratory Tests 01/26/23 16:31: Glucometer 177H 01/26/23 19:30: Body Fluid Source THORACEN, Body Fluid Color YELLOW, Body Fluid Appearance SLT CLDY, Body Fluid pH 7.7, Body Fluid WBC 0.319, Body Fluid RBC 0.004, Body Fl Polynuclear WBCs (%)(Auto) 27.5, Body Fluid Mononuclear Cells % Auto 72.5, Body Fluid Slide Review Yes, Body Fluid Glucose 211, Body Fluid Total Protein 3.2, Body Fluid Albumin 2.0, Body Fluid Lactate Dehydrogenase 104 01/26/23 21:08: Glucometer 201H 01/27/23 03:17: Blood Gas Puncture Site RIGHT RADIAL, Blood Gas Patient Temperature UNKNOWN, Arterial Blood pH 7.38, Arterial Blood Partial Pressure CO2 59H, Arterial Blood Partial Pressure O2 167H, Arterial Blood HCO3 34H, Arterial Blood Total CO2 35.7H, Arterial Blood Oxygen Saturation 100, Arterial Blood Base Excess 8.7H, Xavier Test YES-POS, Blood Gas Ventilator Setting NO, Blood Gas Inspired Oxygen 100% 01/27/23 04:00: White Blood Count 13.0H, Red Blood Count 4.51, Hemoglobin 13.4, Hematocrit 43, Mean Corpuscular Volume 95, Mean Corpuscular Hemoglobin 30, Mean Corpuscular Hemoglobin Concent 31L, Red Cell Distribution Width 14.2, Platelet Count 176, Mean Platelet Volume 10.5, Immature Granulocyte % (Auto) 0, Neutrophils (%) (Auto) 95H, Lymphocytes (%) (Auto) 3L, Monocytes (%) (Auto) 2, Eosinophils (%) (Auto) 0, Basophils (%) (Auto) 0, Neutrophils # (Auto) 12.4H, Lymphocytes # (Auto) 0.3L, Monocytes # (Auto) 0.2, Eosinophils # (Auto) 0.0, Basophils # (Auto) 0.0, Immature Granulocyte # (Auto) 0.1, Neutrophils % (Manual) 97, Lymphocytes % (Manual) 2, Monocytes % (Manual) 1, Sodium Level 138, Potassium Level 4.8, Chloride Level 97L, Carbon Dioxide Level 30, Anion Gap 11, Blood Urea Nitrogen 37H, Creatinine 1.94H, Estimat Glomerular Filtration Rate 25, BUN/Creatinine Ratio 19, Glucose Level 178H, Calcium Level 9.2, Corrected Calcium 9.8, Phosphorus Level 4.0, Magnesium Level 2.2, Total Bilirubin 0.3, Aspartate Amino Transf (AST/SGOT) 13, Alanine Aminotransferase (ALT/SGPT) 16, Alkaline Phosphatase 133, Total Protein 5.9L, Albumin 3.3 01/27/23 10:40: Glucometer 236H Microbiology 01/25/23 MRSA Screen - Final, Complete MRSA not isolated 01/25/23 Blood Culture - Preliminary, Resulted Assessment/Plan Assessment/Plan Assess & Plan/Chief Complaint CHF with hx recurrent bilateral pleural effusions. cont resp tx. monitor recurrence. SKIP ORTEGA MD Jan 27, 2023 11:18
--- NOTE | 2023-01-27 11:27 | Diagnostic Imaging Report ---
INDICATION: Respiratory distress. Comparison is made with prior exam of 01/26/2023. FINDINGS: There is cardiomegaly and mild venous congestion. There is some right basilar subsegmental atelectasis and/or pneumonitis. There is no pleural effusion or pneumothorax. The mediastinum is unremarkable. IMPRESSION: Right basilar subsegmental atelectasis and/or pneumonitis. Cardiomegaly and mild central pulmonary venous congestion. Dictated by: Dictated on workstation # [id number]
[2023-01-27] MEDS: CEFEPIME INJECTION 1,000 MG in NS (IVPB) 50 ML 50 ML IV SCH ×2 (12:20→22:02)
[2023-01-27 16:00] VITALS: BP 159/93
[2023-01-27] MEDS ORDERED: VANCOMYCIN 1 GM/NS 250 ML IVPB IV SCH ×2 (16:00)
--- NOTE | 2023-01-27 16:58 | Cardiology Progress Note ---
Cardiology SOAP Progress Note Subjective: Slowly improving shortness of breath. Objective: I&O/Vital Signs 01/27/23 01/27/23 01/27/23 01/27/23 05:00 06:00 06:27 07:00 Pulse 72 68 76 Resp 36 B/P (MAP) 117/59 (78) 118/55 (76) 135/69 (90) Pulse Ox 93 93 92 93 O2 Delivery Vapotherm Vapotherm Vapotherm Vapotherm O2 Flow Rate 20.00 20.00 20.00 20.00 100.00 100.00 100.00 FiO2 45 01/27/23 01/27/23 01/27/23 01/27/23 07:00 07:59 08:00 08:00 Temp 36.2 Pulse 76 92 B/P (MAP) 138/75 (94) Pulse Ox 92 O2 Delivery Vapotherm Vapotherm O2 Flow Rate 20.00 20.00 100.00 FiO2 100 01/27/23 01/27/23 01/27/23 01/27/23 09:00 09:56 09:56 10:00 Temp 36.2 36.2 Pulse 86 92 Resp 21 B/P (MAP) 154/79 (104) 141/76 (88) Pulse Ox 95 94 O2 Delivery Vapotherm Vapotherm O2 Flow Rate 20.00 20.00 100.00 100.00 01/27/23 01/27/23 01/27/23 01/27/23 10:05 10:12 10:13 10:26 Temp 36.2 Pulse Ox 93 92 92 O2 Delivery Vapotherm Vapotherm Vapotherm O2 Flow Rate 20.00 20.00 20.00 FiO2 45 40 40 01/27/23 01/27/23 01/27/23 01/27/23 11:00 11:55 12:00 12:00 Temp 36.3 Pulse 89 94 Resp 24 28 B/P (MAP) 143/75 (95) 130/74 (96) Pulse Ox 91 94 O2 Delivery Vapotherm Vapotherm Vapotherm O2 Flow Rate 20.00 20.00 20.00 100.00 100.00 FiO2 100 01/27/23 01/27/23 01/27/23 01/27/23 12:57 13:00 14:14 14:20 Pulse 88 89 Resp 13 B/P (MAP) 128/96 (104) Pulse Ox 95 94 93 O2 Delivery Vapotherm Vapotherm Vapotherm O2 Flow Rate 20.00 20.00 20.00 100.00 FiO2 40 30 01/27/23 01/27/23 01/27/23 16:00 16:19 16:22 Temp 35.9 Pulse 83 Resp 24 B/P (MAP) 159/93 (115) Pulse Ox 94 96 O2 Delivery High Flow N/C High Flow N/C High Flow N/C O2 Flow Rate 3.00 5.00 3.00 01/27/23 00:00 Intake Total 1717.5 ml Output Total 1500 ml Balance 217.5 ml Weight (Pounds): 205 Weight (Ounces): 8.0 Constitutional: AAO x 3 Respiratory: respiratory distress, wheezing Cardiovascular: regular rate-rhythm, tachycardia Neurologic/Psychiatric: alert, normal mood/affect, oriented x 3 Skin: normal color, warm/dry Results/Procedures: Labs Laboratory Tests 01/26/23 19:30: Body Fluid Source THORACEN, Body Fluid Color YELLOW, Body Fluid Appearance SLT CLDY, Body Fluid pH 7.7, Body Fluid WBC 0.319, Body Fluid RBC 0.004, Body Fl Polynuclear WBCs (%)(Auto) 27.5, Body Fluid Mononuclear Cells % Auto 72.5, Body Fluid Slide Review Yes, Body Fluid Glucose 211, Body Fluid Total Protein 3.2, Body Fluid Albumin 2.0, Body Fluid Lactate Dehydrogenase 104 01/26/23 21:08: Glucometer 201H 01/27/23 03:17: Blood Gas Puncture Site RIGHT RADIAL, Blood Gas Patient Temperature UNKNOWN, Arterial Blood pH 7.38, Arterial Blood Partial Pressure CO2 59H, Arterial Blood Partial Pressure O2 167H, Arterial Blood HCO3 34H, Arterial Blood Total CO2 35.7H, Arterial Blood Oxygen Saturation 100, Arterial Blood Base Excess 8.7H, Xavier Test YES-POS, Blood Gas Ventilator Setting NO, Blood Gas Inspired Oxygen 100% 01/27/23 04:00: White Blood Count 13.0H, Red Blood Count 4.51, Hemoglobin 13.4, Hematocrit 43, Mean Corpuscular Volume 95, Mean Corpuscular Hemoglobin 30, Mean Corpuscular Hemoglobin Concent 31L, Red Cell Distribution Width 14.2, Platelet Count 176, Mean Platelet Volume 10.5, Immature Granulocyte % (Auto) 0, Neutrophils (%) (Auto) 95H, Lymphocytes (%) (Auto) 3L, Monocytes (%) (Auto) 2, Eosinophils (%) (Auto) 0, Basophils (%) (Auto) 0, Neutrophils # (Auto) 12.4H, Lymphocytes # (Auto) 0.3L, Monocytes # (Auto) 0.2, Eosinophils # (Auto) 0.0, Basophils # (Auto) 0.0, Immature Granulocyte # (Auto) 0.1, Neutrophils % (Manual) 97, Lymphocytes % (Manual) 2, Monocytes % (Manual) 1, Sodium Level 138, Potassium Level 4.8, Chloride Level 97L, Carbon Dioxide Level 30, Anion Gap 11, Blood Urea Nitrogen 37H, Creatinine 1.94H, Estimat Glomerular Filtration Rate 25, BUN/Creatinine Ratio 19, Glucose Level 178H, Calcium Level 9.2, Corrected Calcium 9.8, Phosphorus Level 4.0, Magnesium Level 2.2, Total Bilirubin 0.3, Aspartate Amino Transf (AST/SGOT) 13, Alanine Aminotransferase (ALT/SGPT) 16, Alkaline Phosphatase 133, Total Protein 5.9L, Albumin 3.3 01/27/23 10:40: Glucometer 236H 01/27/23 16:15: Glucometer 158H Microbiology 01/26/23 Gram Stain, Resulted Pending 01/26/23 Body Fluid Culture - Preliminary, Resulted 01/25/23 MRSA Screen - Final, Complete MRSA not isolated 01/25/23 Blood Culture - Preliminary, Resulted A/P: Assessment/Dx: Acute respiratory failure, COPD exacerbation, Possible acute on chronic systolic congestive heart failure, Pulmonary hypertension Acute on chronic kidney injury, Borderline positive troponin Plan: Acute respiratory failure likely due to COPD exacerbation. Patient is an active smoker. Smoking cessation was strongly recommended. Possible acute on chronic systolic congestive heart failure. Echocardiogram shows an EF of 45 to 50%. Mildly elevated BNP. Could be due to RV strain. Pulmonary hypertension likely secondary to severe COPD. Acute on chronic kidney disease. Borderline positive troponin: Serial troponin is negative. Possibility of type II [place]. Discussed at length with the patient Focused Exam Lactate Level 01/25/23 11:20: Lactic Acid Level 1.46 Blane TOMAS MD Jan 27, 2023 16:58
[2023-01-27] MEDS: ACETAMINOPHEN 500 MG TABLET PO PRN (19:28)
[2023-01-27] MEDS: cloNIDine 0.1 MG TABLET PO PRN (19:53)
[2023-01-27 20:00] VITALS: BP 193/107
[2023-01-27] MEDS: dilTIAZem ER 300 MG CAPSULE PO SCH (20:54)
[2023-01-27] MEDS: clonazePAM 1 MG TABLET PO SCH (20:54)
[2023-01-28] VITALS (8 sets, daily range): BP systolic 129–163; BP diastolic 72–85
[2023-01-28] MEDS: RT-Ipratropium/Albuterol NEB 3 ML VIAL INH SCH ×6 (02:27→22:56)
[2023-01-28] MEDS: ACETAMINOPHEN 500 MG TABLET PO PRN (02:35)
[2023-01-28 05:30] LABS: BASOPHILS % (AUTO) 0 % (0-10); EOSINOPHILS % (AUTO) 0 % (0-10); HEMATOCRIT 42 % (35-52); HEMOGLOBIN 13.1 g/dL (11.5-16.0); LYMPHOCYTES # (AUTO) 0.5 10^3/uL (1.0-4.0); LYMPHOCYTES % (AUTO) 4 % (12-44); MEAN CORPUSCULAR HEMOGLOBIN 30 pg (25-34); MEAN CORPUSCULAR HGB CONC 31 g/dL (32-36); MEAN CORPUSCULAR VOLUME 95 fL (80-99); MEAN PLATELET VOLUME 10.1 fL (9.0-12.2); MONOCYTES # (AUTO) 0.3 10^3/uL (0.0-1.0); MONOCYTES % (AUTO) 2 % (0-12); NEUTROPHILS # (AUTO) 12.2 10^3/uL (1.8-7.8); NEUTROPHILS % (AUTO) 94 % (42-75); PLATELET COUNT 184 10^3/uL (130-400)
[2023-01-28 05:53] LABS: ALBUMIN 3.2 GM/DL (3.2-4.5); BILIRUBIN,TOTAL 0.4 MG/DL (0.1-1.0); CALCIUM 8.9 MG/DL (8.5-10.1); CREATININE SERUM 2.14 MG/DL (0.60-1.30); MAGNESIUM 2.3 MG/DL (1.6-2.4); PHOSPHORUS 3.8 MG/DL (2.3-4.7); POTASSIUM 5.2 MMOL/L (3.6-5.0); TOTAL PROTEIN 5.7 GM/DL (6.4-8.2)
[2023-01-28] MEDS: MAGNESIUM 1 GM/100 ML IVPB 100 ML IV SCH (06:42)
[2023-01-28] MEDS: POTASSIUM CHLORIDE 20 MEQ TABLET PO SCH (06:42)
[2023-01-28] MEDS: POTASSIUM CL 10MEQ/50ML IVPB 50 ML IV SCH (06:42)
[2023-01-28] MEDS: TIOTROPIUM INH 4 GM (SPIRIVA Respimat) IH SCH (06:54)
[2023-01-28] MEDS: FLUTICASONE/VILANTEROL 100/25 MCG (7 DOSES) IH SCH (06:54)
[2023-01-28] MEDS: inSUlin ASPART 1 UNIT/0.01 ML (PER UNIT) SC SCH ×4 (06:59→21:05)
--- NOTE | 2023-01-28 08:20 | Diagnostic Imaging Report ---
INDICATION: Dyspnea. COMPARISON: 01/27/2023. DISCUSSION: Single portable upright view of the chest was obtained. Low lung volumes. Cardiomegaly is stable. Bilateral pleural effusions are again noted. Mild interstitial thickening is decreased. This likely represents slightly decreased pulmonary edema. No pneumothorax or osseous abnormality. IMPRESSION: 1. Stable cardiomegaly and effusions. Suspected mild interstitial edema is decreased. Dictated by: Dictated on workstation # [id number]
[2023-01-28] MEDS: hydrALAZINE 25 MG TABLET PO SCH ×3 (09:03→21:05)
[2023-01-28] MEDS: FUROSEMIDE INJECTION 40 MG/4 ML VIAL IVP SCH ×2 (09:03→16:58)
[2023-01-28] MEDS: carvediloL 6.25 MG TABLET PO SCH ×2 (09:04→18:16)
[2023-01-28] MEDS: dexAMETHasone INJ 4 MG/ML SDV IV SCH ×2 (09:04→21:05)
[2023-01-28] MEDS: ALLOPURINOL 100 MG TABLET PO SCH (09:05)
[2023-01-28] MEDS: FERROUS SULFATE 325 MG (IRON) TABLET PO SCH ×2 (09:05→21:05)
[2023-01-28] MEDS: amLODIPine 5 MG TABLET PO SCH (09:07)
[2023-01-28] MEDS: LORATADINE 10 MG TABLET PO SCH (09:07)
[2023-01-28] MEDS: MICONAZOLE 2% POWDER 90 GM TOP SCH ×2 (09:08→21:06)
--- NOTE | 2023-01-28 09:37 | Progress Note ---
ROSA TRAMMELL MD 01/28/23 0936: Subjective HPI/CC On Admission Chief complaint: Acute hypoxic respiratory failure requiring Vapotherm HPI: This is an 82-year-old female who has a past medical history of respiratory failure maintained on oxygen at home and congestive heart failure who presented with progressive shortness of breath with anasarca requiring ER evaluation. She was just hospitalized 6 weeks ago with similar issues. She was assessed to have congestive heart failure in need of IV diuresis in ICU and Vapotherm. Pt reports doing worse today as her back hurts this morning. She reports same work of breathing as previous day. Denies CP, N/V, chills, fevers. She says her breathing is the same as yesterday. Focused Exam Lactate Level Objective Exam Vital Signs Vital Signs Date Time Temp Pulse Resp B/P (MAP) Pulse Ox O2 Delivery O2 Flow Rate FiO2 01/28/23 16:05 High Flow N/C 4.00 0 01/28/23 16:00 36.0 77 22 156/83 (107) 01/28/23 15:01 97 Capillary Refill : Less Than 3 Seconds General Appearance: No Apparent Distress Respiratory: Chest Non Tender, Rhonci, Wheezing Cardiovascular: Regular Rate, Rhythm Gastrointestinal: Non Tender, Soft Back: Normal Inspection Neurologic/Psychiatric: Alert, Oriented x3, Normal Mood/Affect Skin: Warm/Dry Results/Procedures Lab Laboratory Tests 01/28/23 04:50 Patient resulted labs reviewed. Imaging: Reviewed Imaging Report Assessment/Plan Assessment and Plan Assess & Plan/Chief Complaint Assessment: Acute on chronic respiratory failure requiring Vapotherm Acute on chronic congestive heart failure Pleural effusion Chronic kidney disease NSTEMI likely type II IN COPD with exacerbation WBC elevated to 13 today BCx with growth that is likely skin normal dm Plan: IV Lasix Cardiology consult General surgery consulted - s/p R thoracentesis Continue Vapotherm Transfer to 4th floor for further management Will add cefepime Diagnosis/Problems Diagnosis/Problems (1) Acute on chronic diastolic (congestive) heart failure Status: Acute (2) Dyspnea (3) Pleural effusion Status: Acute (4) Acute and chronic respiratory failure with hypoxia Status: Acute (5) HTN (hypertension) Status: Chronic (6) HLD (hyperlipidemia) Status: Chronic (7) COPD exacerbation Status: Acute (8) DVT prophylaxis Status: Acute (9) Renal failure (ARF), acute on chronic Status: Acute (10) CAP (community acquired pneumonia) Status: Acute VICKY CHAVIRA DO 01/28/23 2013: Subjective HPI/CC On Admission Date Seen by Provider: Jan 28, 2023 Time Seen by Provider: 11:00 Subjective/Events-last exam Improved Awaiting 4th floor bed Increased BP will be managed No pain Overall poor prognosis Review of Systems Pulmonary: Dyspnea, Cough Objective Exam General Appearance: No Apparent Distress, WD/WN, Chronically ill Respiratory: Decreased Breath Sounds, Rhonci, Wheezing Assessment/Plan Assessment and Plan Assess & Plan/Chief Complaint Move to 4th floor ROSA TRAMMELL MD Jan 28, 2023 09:36 VICKY CHAVIRA DO Jan 28, 2023 20:13
[2023-01-28] MEDS: oxyCODONE IMMEDIATE RELEASE 5 MG TABLET PO PRN (11:30)
[2023-01-28] MEDS: SENNOSIDES 8.6 MG TABLET PO SCH ×2 (11:30→21:05)
[2023-01-28] MEDS: DOCUSATE SODIUM 100 MG CAPSULE PO SCH ×2 (11:31→21:05)
--- NOTE | 2023-01-28 13:48 | Cardiology Progress Note ---
Cardiology SOAP Progress Note Subjective: continues to be short of breath Objective: I&O/Vital Signs 01/28/23 01/28/23 01/28/23 01/28/23 06:54 06:56 07:00 07:00 Pulse 77 Pulse Ox 97 95 95 O2 Delivery High Flow N/C High Flow N/C High Flow N/C O2 Flow Rate 6.00 6.00 6.00 01/28/23 01/28/23 01/28/23 01/28/23 08:00 08:10 08:10 10:45 Temp 36.7 Pulse 77 Resp 22 B/P (MAP) 141/79 (99) Pulse Ox 92 97 O2 Delivery High Flow N/C High Flow N/C High Flow N/C O2 Flow Rate 4.00 3.00 6.00 FiO2 0 01/28/23 01/28/23 01/28/23 01/28/23 11:00 11:45 12:00 12:00 Temp 36.1 Pulse 75 Resp 20 B/P (MAP) 148/73 (98) Pulse Ox 94 O2 Delivery High Flow N/C High Flow N/C O2 Flow Rate 4.00 3.00 FiO2 0 01/28/23 01/28/23 01/28/23 01/28/23 15:01 16:00 16:05 18:01 Temp 36.0 Pulse 77 Resp 22 B/P (MAP) 156/83 (107) Pulse Ox 97 O2 Delivery High Flow N/C High Flow N/C High Flow N/C High Flow N/C O2 Flow Rate 6.00 3.00 4.00 4.00 FiO2 0 0 01/28/23 18:21 Temp 36.8 Pulse 79 Resp 18 B/P (MAP) 154/85 (108) Pulse Ox 90 O2 Delivery High Flow N/C 01/28/23 00:00 Intake Total 1450 ml Output Total 200 ml Balance 1250 ml Weight (Pounds): 205 Weight (Ounces): 8.0 Constitutional: AAO x 3 Respiratory: respiratory distress, wheezing Cardiovascular: regular rate-rhythm, tachycardia Neurologic/Psychiatric: alert, normal mood/affect, oriented x 3 Skin: normal color, warm/dry Results/Procedures: Labs Laboratory Tests 01/27/23 20:47: Glucometer 269H 01/28/23 04:50: White Blood Count 13.0H, Red Blood Count 4.41, Hemoglobin 13.1, Hematocrit 42, Mean Corpuscular Volume 95, Mean Corpuscular Hemoglobin 30, Mean Corpuscular Hemoglobin Concent 31L, Red Cell Distribution Width 14.4, Platelet Count 184, Mean Platelet Volume 10.1, Immature Granulocyte % (Auto) 0, Neutrophils (%) (Auto) 94H, Lymphocytes (%) (Auto) 4L, Monocytes (%) (Auto) 2, Eosinophils (%) (Auto) 0, Basophils (%) (Auto) 0, Neutrophils # (Auto) 12.2H, Lymphocytes # (A uto) 0.5L, Monocytes # (Auto) 0.3, Eosinophils # (Auto) 0.0, Basophils # (Auto) 0.0, Immature Granulocyte # (Auto) 0.1, Sodium Level 135, Potassium Level 5.2H, Chloride Level 95L, Carbon Dioxide Level 30, Anion Gap 10, Blood Urea Nitrogen 52H, Creatinine 2.14H, Estimat Glomerular Filtration Rate 23, BUN/Creatinine Ratio 24, Glucose Level 156H, Calcium Level 8.9, Corrected Calcium 9.5, Phosphorus Level 3.8, Magnesium Level 2.3, Total Bilirubin 0.4, Aspartate Amino Transf (AST/SGOT) 12, Alanine Aminotransferase (ALT/SGPT) 17, Alkaline Phosphatase 117, Total Protein 5.7L, Albumin 3.2 01/28/23 10:45: Glucometer 323H 01/28/23 15:25: Vancomycin Level Trough 23.1H 01/28/23 16:56: Glucometer 151H Microbiology 01/26/23 Gram Stain - Final, Resulted 01/26/23 Body Fluid Culture - Preliminary, Resulted 01/25/23 MRSA Screen - Final, Complete MRSA not isolated 01/25/23 Blood Culture - Preliminary, Resulted A/P: Assessment/Dx: Acute respiratory failure, COPD exacerbation, Possible acute on chronic systolic congestive heart failure, Pulmonary hypertension Acute on chronic kidney injury, Borderline positive troponin Plan: Acute respiratory failure likely due to COPD exacerbation. Patient is an active smoker. Smoking cessation was strongly recommended. Possible acute on chronic systolic congestive heart failure. Echocardiogram shows an EF of 45 to 50%. Mildly elevated BNP. due to RV strain. Pulmonary hypertension likely secondary to severe COPD. Acute on chronic kidney disease. Borderline positive troponin: Serial troponin is negative. Possibility of type II [place]. Discussed at length with the patient Blane TOMAS MD Jan 28, 2023 13:48
[2023-01-28] MEDS: CEFEPIME INJECTION 1,000 MG in NS (IVPB) 50 ML 50 ML IV SCH ×2 (14:36→23:05)
[2023-01-28] MEDS ORDERED: TROUGH ORDER-PHARMACY XX ONE (15:00)
[2023-01-28] MEDS ORDERED: inSUlin DETERMIR 1 UNIT/0.01 ML (CHARGE PER UNIT) SQ SCH (21:00)
[2023-01-28] MEDS: inSUlin DETERMIR 1 UNIT/0.01 ML (CHARGE PER UNIT) SQ SCH (21:05)
[2023-01-28] MEDS: dilTIAZem ER 300 MG CAPSULE PO SCH (21:05)
[2023-01-28] MEDS: clonazePAM 1 MG TABLET PO SCH (21:09)
[2023-01-29] VITALS (7 sets, daily range): BP systolic 131–160; BP diastolic 65–81
[2023-01-29] MEDS: RT-Ipratropium/Albuterol NEB 3 ML VIAL INH SCH ×6 (03:55→22:09)
[2023-01-29] MEDS: FUROSEMIDE INJECTION 40 MG/4 ML VIAL IVP SCH ×2 (04:28→17:00)
[2023-01-29] MEDS: inSUlin ASPART 1 UNIT/0.01 ML (PER UNIT) SC SCH ×4 (05:01→20:54)
[2023-01-29 05:24] LABS: BASOPHILS % (AUTO) 0 % (0-10); EOSINOPHILS % (AUTO) 0 % (0-10); HEMATOCRIT 47 % (35-52); HEMOGLOBIN 14.8 g/dL (11.5-16.0); LYMPHOCYTES # (AUTO) 0.5 10^3/uL (1.0-4.0); LYMPHOCYTES % (AUTO) 4 % (12-44); MEAN CORPUSCULAR HEMOGLOBIN 30 pg (25-34); MEAN CORPUSCULAR HGB CONC 32 g/dL (32-36); MEAN CORPUSCULAR VOLUME 94 fL (80-99); MEAN PLATELET VOLUME 9.9 fL (9.0-12.2); MONOCYTES # (AUTO) 0.3 10^3/uL (0.0-1.0); MONOCYTES % (AUTO) 2 % (0-12); NEUTROPHILS # (AUTO) 12.3 10^3/uL (1.8-7.8); NEUTROPHILS % (AUTO) 93 % (42-75); PLATELET COUNT 209 10^3/uL (130-400); WHITE BLOOD COUNT 13.2 10^3/uL (4.3-11.0)
[2023-01-29] MEDS: ACETAMINOPHEN 500 MG TABLET PO PRN ×2 (05:44→16:28)
[2023-01-29 05:45] LABS: ALBUMIN 3.5 GM/DL (3.2-4.5); BILIRUBIN,TOTAL 0.5 MG/DL (0.1-1.0); CALCIUM 9.3 MG/DL (8.5-10.1); CREATININE SERUM 2.31 MG/DL (0.60-1.30); MAGNESIUM 2.5 MG/DL (1.6-2.4); PHOSPHORUS 4.6 MG/DL (2.3-4.7); POTASSIUM 5.5 MMOL/L (3.6-5.0); TOTAL PROTEIN 6.3 GM/DL (6.4-8.2)
[2023-01-29] MEDS: MAGNESIUM 1 GM/100 ML IVPB 100 ML IV SCH (06:01)
[2023-01-29] MEDS: POTASSIUM CHLORIDE 20 MEQ TABLET PO SCH (06:01)
[2023-01-29] MEDS: POTASSIUM CL 10MEQ/50ML IVPB 50 ML IV SCH (06:01)
[2023-01-29] MEDS: amLODIPine 5 MG TABLET PO SCH (08:33)
[2023-01-29] MEDS: DOCUSATE SODIUM 100 MG CAPSULE PO SCH ×2 (08:33→20:53)
[2023-01-29] MEDS: dexAMETHasone INJ 4 MG/ML SDV IV SCH ×2 (08:33→20:54)
[2023-01-29] MEDS: FERROUS SULFATE 325 MG (IRON) TABLET PO SCH ×2 (08:33→20:53)
[2023-01-29] MEDS: carvediloL 6.25 MG TABLET PO SCH ×2 (08:33→17:00)
[2023-01-29] MEDS: SENNOSIDES 8.6 MG TABLET PO SCH ×2 (08:33→20:53)
[2023-01-29] MEDS: ALLOPURINOL 100 MG TABLET PO SCH (08:33)
[2023-01-29] MEDS: LORATADINE 10 MG TABLET PO SCH (08:33)
[2023-01-29] MEDS: hydrALAZINE 25 MG TABLET PO SCH ×3 (08:34→20:53)
[2023-01-29] MEDS: inSUlin DETERMIR 1 UNIT/0.01 ML (CHARGE PER UNIT) SQ SCH ×2 (08:38→20:54)
[2023-01-29] MEDS ORDERED: TROUGH ORDER-PHARMACY XX NR (09:00)
[2023-01-29] MEDS: MICONAZOLE 2% POWDER 90 GM TOP SCH ×2 (10:44→20:55)
[2023-01-29] MEDS: TIOTROPIUM INH 4 GM (SPIRIVA Respimat) IH SCH (11:05)
[2023-01-29] MEDS: FLUTICASONE/VILANTEROL 100/25 MCG (7 DOSES) IH SCH (11:05)
--- NOTE | 2023-01-29 11:42 | Cardiology Progress Note ---
Subjective Date Seen by Provider: Jan 29, 2023 Time Seen by Provider: 08:45 Subjective/Events-last exam Patient is sitting up in bed, still having some dyspnea. Objective-Cardiology Exam Last Set of Vital Signs Vital Signs 01/29/23 01/29/23 05:18 08:24 Temp 35.9 Pulse 80 Resp 22 B/P (MAP) 160/81 (107) Pulse Ox 95 O2 Delivery Vapotherm O2 Flow Rate 17.00 FiO2 100 I&O Intake and Output 01/29/23 00:00 Intake Total 1350 ml Output Total 750 ml Balance 600 ml Intake Oral 1300 ml IV Total 50 ml Output Urine Total 750 ml # Voids 2 General: Alert, Oriented X3, Cooperative HEENT: Atraumatic Neck: Supple, No JVD Lungs: Other (bilateral wheezing and rhonchi) Heart: Regular Rate Abdomen: Normal Bowel Sounds, Soft Skin: No Rashes, No Significant Lesion Neuro: Normal Speech Psych/Mental Status: Mental Status NL, Mood NL Results Lab Laboratory Tests 01/29/23 05:14 A/P-Cardiology Admission Diagnosis Acute respiratory failure AE COPD AE CHF HTN Assessment/Plan Acute respiratory failure likely due to COPD exacerbation. Patient is an active smoker. Smoking cessation was strongly recommended. Possible acute on chronic systolic congestive heart failure. Echocardiogram shows an EF of 45 to 50%. Mildly elevated BNP. Could be due to RV strain. History of recurrent pleural effusion, underwent thoracentesis on this admission. Pulmonary hypertension likely secondary to severe COPD. Acute on chronic kidney disease. Continue to monitor renal function Borderline positive troponin: Serial troponin is negative. Possibility of type II [place] d/t respiratory failure Supervisory-Addendum Brief Supervisory Addendum Participated in pt care: history, MDM, physical Personally performed: exam, history, MDM Care discussed with: JONO Results interpretation: Verified all documentation Notes: Patient was seen and evaluated with Antonietta, examination performed, management plan was discussed, agree with the current scribed note, I made few changes to the note using Italic font Patient was seen at bedside, still having shortness of breath Had minimal elevation in troponin initially but the serial work-up was negative, type II [place] Ejection fraction 45 to 50% with mildly elevated BNP, Monitor blood pressure ANTONIETTA SANTOS Jan 29, 2023 11:41 GEORGE RHODES MD Jan 29, 2023 12:08
[2023-01-29] MEDS: CEFEPIME INJECTION 1,000 MG in NS (IVPB) 50 ML 50 ML IV SCH ×2 (11:49→23:20)
--- NOTE | 2023-01-29 12:46 | Progress Note ---
Subjective Subjective/Events-last exam Sitting up eating lunch, states she is okay. On vapotherm at 55% FiO2, had worse hypoxia earlier this am. Objective Exam Last Set of Vital Signs Vital Signs Date Time Temp Pulse Resp B/P (MAP) Pulse Ox O2 Delivery O2 Flow Rate FiO2 01/29/23 08:24 35.9 80 22 160/81 (107) 95 Vapotherm 17.00 01/29/23 05:18 100 Capillary Refill : Less Than 3 Seconds I&O Intake and Output 01/29/23 00:00 Intake Total 1350 ml Output Total 750 ml Balance 600 ml Intake Oral 1300 ml IV Total 50 ml Output Urine Total 750 ml # Voids 2 General: Alert, No Acute Distress Lungs: Other (ronchi) Heart: Regular Rate Abdomen: Normal Bowel Sounds, Soft Psych/Mental Status: Mood NL Results/Procedures Lab Laboratory Tests 01/28/23 15:25: Vancomycin Level Trough 23.1H 01/28/23 16:56: Glucometer 151H 01/28/23 20:55: Glucometer 190H 01/29/23 04:58: Glucometer 136H 01/29/23 05:14: White Blood Count 13.2H, Red Blood Count 4.99, Hemoglobin 14.8, Hematocrit 47, Mean Corpuscular Volume 94, Mean Corpuscular Hemoglobin 30, Mean Corpuscular Hemoglobin Concent 32, Red Cell Distribution Width 14.4, Platelet Count 209, Mean Platelet Volume 9.9, Immature Granulocyte % (Auto) 1, Neutrophils (%) (Auto) 93H, Lymphocytes (%) (Auto) 4L, Monocytes (%) (Auto) 2, Eosinophils (%) (Auto) 0, Basophils (%) (Auto) 0, Neutrophils # (Auto) 12.3H, Lymphocytes # (Auto) 0.5L, Monocytes # (Auto) 0.3, Eosinophils # (Auto) 0.0, Basophils # (Auto) 0.0, Immature Granulocyte # (Auto) 0.1, Sodium Level 135, Potassium Level 5.5H, Chloride Level 95L, Carbon Dioxide Level 29, Anion Gap 11, Blood Urea Nitrogen 65H, Creatinine 2.31H, Estimat Glomerular Filtration Rate 21, BUN/Creatinine Ratio 28, Glucose Level 134H, Calcium Level 9.3, Corrected Calcium 9.7, Phosphorus Level 4.6, Magnesium Level 2.5H, Total Bilirubin 0.5, Aspartate Amino Transf (AST/SGOT) 13, Alanine Aminotransferase (ALT/SGPT) 19, Alkaline Phosphatase 121, Total Protein 6.3L, Albumin 3.5 01/29/23 09:04: Vancomycin Level Trough 19.8 01/29/23 11:00: Glucometer 230H Microbiology 01/26/23 Gram Stain - Final, Resulted 01/26/23 Body Fluid Culture - Preliminary, Resulted 01/25/23 MRSA Screen - Final, Complete MRSA not isolated 01/25/23 Blood Culture - Preliminary, Resulted Assessment/Plan Assessment/Plan Assessment & Plan Acute on chronic respiratory failure requiring Vapotherm Acute on chronic congestive heart failure- appreciate Cardiology recommendations Pleural effusion- s/p thoracentesis, serum LDH not obtained, unable to calculate Light's criteria, gram stain negative for bacteria, culture negative to date. On cefepime. Chronic kidney disease NSTEMI likely type II [place] COPD with exacerbation- on dexamethasone BCx with growth that is likely skin normal dm RICKI ALCARAZ MD Jan 29, 2023 12:46
[2023-01-29] MEDS ORDERED: VANCOMYCIN 1 GM/NS 250 ML IVPB IV SCH ×2 (16:00)
[2023-01-29] MEDS: dilTIAZem ER 300 MG CAPSULE PO SCH (20:53)
[2023-01-29] MEDS: clonazePAM 1 MG TABLET PO SCH (20:53)
[2023-01-30] VITALS (9 sets, daily range): BP systolic 120–198; BP diastolic 55–80
[2023-01-30] MEDS: RT-Ipratropium/Albuterol NEB 3 ML VIAL INH SCH ×4 (02:13→18:53)
[2023-01-30] MEDS: ACETAMINOPHEN 500 MG TABLET PO PRN (04:00)
[2023-01-30 06:09] LABS: BASOPHILS % (AUTO) 0 % (0-10); EOSINOPHILS % (AUTO) 0 % (0-10); HEMATOCRIT 43 % (35-52); LYMPHOCYTES # (AUTO) 0.4 10^3/uL (1.0-4.0); LYMPHOCYTES % (AUTO) 4 % (12-44); MEAN CORPUSCULAR HEMOGLOBIN 30 pg (25-34); MEAN CORPUSCULAR HGB CONC 32 g/dL (32-36); MEAN CORPUSCULAR VOLUME 92 fL (80-99); MEAN PLATELET VOLUME 10.6 fL (9.0-12.2); MONOCYTES # (AUTO) 0.3 10^3/uL (0.0-1.0); MONOCYTES % (AUTO) 3 % (0-12); NEUTROPHILS # (AUTO) 10.2 10^3/uL (1.8-7.8); NEUTROPHILS % (AUTO) 92 % (42-75); PLATELET COUNT 187 10^3/uL (130-400)
[2023-01-30] MEDS: inSUlin ASPART 1 UNIT/0.01 ML (PER UNIT) SC SCH ×4 (06:11→20:42)
[2023-01-30 06:42] LABS: ALBUMIN 3.3 GM/DL (3.2-4.5); BILIRUBIN,TOTAL 0.5 MG/DL (0.1-1.0); CALCIUM 8.9 MG/DL (8.5-10.1); CREATININE SERUM 2.45 MG/DL (0.60-1.30); MAGNESIUM 2.7 MG/DL (1.6-2.4); PHOSPHORUS 3.8 MG/DL (2.3-4.7); POTASSIUM 5.3 MMOL/L (3.6-5.0); TOTAL PROTEIN 5.8 GM/DL (6.4-8.2)
[2023-01-30] MEDS: FUROSEMIDE INJECTION 40 MG/4 ML VIAL IVP SCH (06:42)
[2023-01-30] MEDS: MAGNESIUM 1 GM/100 ML IVPB 100 ML IV SCH (06:53)
[2023-01-30] MEDS: POTASSIUM CL 10MEQ/50ML IVPB 50 ML IV SCH (06:53)
[2023-01-30] MEDS: POTASSIUM CHLORIDE 20 MEQ TABLET PO SCH (06:53)
[2023-01-30] MEDS ORDERED: FUROSEMIDE 40 MG TABLET PO SCH (07:00)
[2023-01-30] MEDS: DOCUSATE SODIUM 100 MG CAPSULE PO SCH ×2 (09:01→20:41)
[2023-01-30] MEDS: hydrALAZINE 25 MG TABLET PO SCH ×3 (09:01→20:41)
[2023-01-30] MEDS: carvediloL 6.25 MG TABLET PO SCH ×2 (09:01→17:07)
[2023-01-30] MEDS: ALLOPURINOL 100 MG TABLET PO SCH (09:01)
[2023-01-30] MEDS: SENNOSIDES 8.6 MG TABLET PO SCH ×2 (09:01→20:41)
[2023-01-30] MEDS: FERROUS SULFATE 325 MG (IRON) TABLET PO SCH ×2 (09:01→20:41)
[2023-01-30] MEDS: LORATADINE 10 MG TABLET PO SCH (09:02)
[2023-01-30] MEDS: dexAMETHasone INJ 4 MG/ML SDV IV SCH ×2 (09:02→20:43)
[2023-01-30] MEDS: inSUlin DETERMIR 1 UNIT/0.01 ML (CHARGE PER UNIT) SQ SCH ×2 (09:02→20:42)
[2023-01-30] MEDS: MICONAZOLE 2% POWDER 90 GM TOP SCH ×2 (09:02→20:41)
[2023-01-30] MEDS: oxyCODONE IMMEDIATE RELEASE 5 MG TABLET PO PRN (09:14)
[2023-01-30] MEDS ORDERED: MILK OF MAGNESIA 400 MG/5 ML 30 ML UDC PO SCH (10:45)
--- NOTE | 2023-01-30 11:35 | Cardiology Progress Note ---
Subjective Date Seen by Provider: Jan 30, 2023 Time Seen by Provider: 11:34 Subjective/Events-last exam Patient was seen at bedside, no new complaint. No chest pain. Objective-Cardiology Exam Last Set of Vital Signs Vital Signs 01/29/23 01/30/23 01/30/23 11:06 08:09 11:04 Temp 36.0 Pulse 80 Resp 16 B/P (MAP) 150/68 (95) Pulse Ox 97 O2 Delivery High Flow N/C O2 Flow Rate 5.00 FiO2 55 I&O Intake and Output 01/30/23 00:00 Intake Total 970 ml Output Total 800 ml Balance 170 ml Intake Oral 920 ml IV Total 50 ml Output Urine Total 800 ml # Voids 2 General: Alert, Cooperative, No Acute Distress HEENT: Atraumatic Neck: Supple, No JVD Lungs: Other (ronchi) Heart: Regular Rate Abdomen: Normal Bowel Sounds, Soft Extremities: No Clubbing, No Cyanosis Skin: No Rashes, No Significant Lesion Neuro: Normal Speech Psych/Mental Status: Mood NL Results Lab Laboratory Tests 01/30/23 05:26 A/P-Cardiology Admission Diagnosis Acute respiratory failure AE COPD AE CHF HTN Assessment/Plan Status post acute respiratory failure likely due to COPD exacerbation. Patient is an active smoker. Smoking cessation was strongly recommended. Possible acute on chronic systolic congestive heart failure. Echocardiogram shows an EF of 45 to 50%. Mildly elevated BNP. Could be due to RV strain. History of recurrent pleural effusion, underwent thoracentesis on this admission. Still having bilateral rales at the bases otherwise no abnormality Pulmonary hypertension likely secondary to severe COPD. Acute on chronic kidney disease. Continue to monitor renal function Borderline positive troponin: Serial troponin is negative. Possibility of type II [place] d/t respiratory failure GEORGE RHODES MD Jan 30, 2023 11:35
[2023-01-30] MEDS: CEFEPIME INJECTION 1,000 MG in NS (IVPB) 50 ML 50 ML IV SCH (11:36)
--- NOTE | 2023-01-30 13:08 | Occupational Therapy Eval ---
OT Evaluation-General/PLF Medical Diagnosis Admission Date Jan 25, 2023 at 13:17 Medical Diagnosis: ARF Onset Date: Jan 25, 2023 Therapy Diagnosis Therapy Diagnosis: weakness, debility Height/Weight Weight (Pounds): 205 Weight (Ounces): 8.0 Precautions Precautions/Isolations: Fall Prevention, Standard Precautions Weight Bear Status Weight Bearing Restriction: Full Weight Bearing Referral Referral Reason: Evaluation/Treatment Medical History Pertinent Medical History: CAD, COPD, HTN, Neuropathy, Smoking Reviewed History: Yes Social History Home: lives in quarter/addition to [facility] Current Living Status: Other Family Entry Into Home: Stairs With Railing Steps Into Home: 3 (from outside entry, no steps from inside existing home) ADL-Prior Level of Function SCALE: Activities may be completed with or without assistive devices. 0-Lkqboxgcsq-rkmegcw completes the activity by him/herself with no assistance from a helper. 5-Set-up or Clean-up Assistance-helper sets up or cleans up; patient completes activity. [place] assists only prior to or following the activity. 4-Supervision or Touching Assistance-helper provides verbal cues and/or touching/steadying and/or contact guard assistance as patient completes activity. Assistance may be provided throughout the activity or intermittently. 3-Partial/Moderate Assistance-helper does LESS THAN HALF the effort. [place] lifts, holds or supports trunk or limbs, but provides less than half the effort. 2-Substantial/Maximal Assistance-helper does MORE THAN HALF the effort. [place] lifts or holds trunk or limbs and provides more than half the effort. 4-Xpehaprkj-gyxwnn does ALL the effort. Patient does none of the effort to complete the activity. Or, the assistance of 2 or more helpers is required for the patient to complete the activity. If activity was not attempted, code reason: 7-Patient Refused. 9-Not Applicable-not attempted and the patient did not perform the activity b efore the current illness, exacerbation or injury. 10-Not Attempted due to Environmental Limitations-(lack of equipment, weather restraints, etc.). 88-Not Attempted due to Medical Conditions or Safety Concerns. Self Care: Needed Some Help (tub shower w/ chair w/ back and arms) Functional Cognition: Needed Some Help DME/Equipment: Bath Chair, Grab Bars DME/Equipment Comments I have a walker, Shantell...I think it has 4 wheels but i am not sure, it does have a seat Drive Self: No OT Current Status Pain Numeric Pain Scale: 4 Location Body Site: Back Mental Status/Objective Patient Orientation: Person, Place, Time (the , the ), Situation (I have pnuemonia) Patient is hesitant to get out of bed because she has a PUR WIK and is getting a suppository. OT provided education that neither of those thing prevent one from getting out of bed, Patient reports she walks to bathroom at home, OT provided education for using call nurse remote and ambulating to bathroom w/ staff. Increased mobility will increase occurrence of BM Attachments: Oxygen (4-5 liter here ads at home), Other-See Comments (PUR WICK) Current Glasses/Contacts: Yes (not here) Hearing Aids: No Dentures/Partials: Yes Hand Dominance: Right Upper Extremity ROM Difficulty w/ forward flexion d/t hernia, limited joint approximation d/t excessive soft tissue Upper Extremity Coordination WFLs Upper Extremity Strength +3/5 grossly ADL-Treatment Eating (QC): 6 Oral Hygiene (QC): 5 (sitting) Shower/Bathe Self (QC): 7 Upper Body Dressing (QC): 4 Lower Body Dressing (QC): 3 On/Off Footwear (QC): 1 Toileting Hygiene (QC): 4 Education OT Patient Education: Correct positioning, Exercise program, Modified ADL techniques, Progress toward Goal/Update tx plan, Purpose of tx/functional activities, Reviewed precautions, Rehab process, Safety issues, Transfer techniques Teaching Recipient: Patient Teaching Methods: Demonstration, Discussion Response to Teaching: Verbalize Understanding, Reinforcement Needed OT Maintenance Pipefitter Goals Maintenance Pipefitter Goals Eating (QC): 6 Oral Hygiene (QC): 6 Toileting Hygiene (QC): 6 Shower/Bathe Self (QC): 6 Upper Body Dressing (QC): 6 Lower Body Dressing (QC): 6 On/Off Footwear (QC): 6 1=Demonstrate adherence to instructed precautions during ADL tasks. 2=Patient will verbalize/demonstrate understanding of assistive devices/modifications for ADL. 3=Patient will improve strength/tolerance for activity to enable patient to perform ADL's. OT Education/Plan Problem List/Assessment Assessment: Decreased Activ Tolerance, Decreased Safety Aware, Decreased UE Strength, Impaired Self-Care Skills Discharge Recommendations Plan/Recommendations: Continue POC Therapy Discharge Recommendati: Post Acute OT Treatment Plan/Plan of Care Treatment,Training & Education: Yes Patient would benefit from OT for education, treatment and training to promote independence in ADL's, mobility, safety and/or upper extremity function for ADL's. Plan of Care: ADL Retraining, Cognitive Retraining, Concurrent Therapy, Functional Mobility, Group Exercise/Act as Ind, UE Funct Exercise/Act Treatment Duration: Feb 05, 2023 Frequency: 3 times per week (3-5 tmes per week) Estimated Hrs Per Day: .25 hour per day Agreement: Yes Rehab Potential: Fair remains sitting in recliner all needs met Time Start Time: 13:09 Stop Time: 13:30 DATE: Jan 30, 2023 Total Time Billed (hr/min): 21 Billed Treatment Time EVM 21 min FLORIAN WORLEY OT Jan 30, 2023 13:08
--- NOTE | 2023-01-30 14:21 | Physical Therapy Evaluation ---
PT Evaluation-General Medical Diagnosis Admission Date Jan 25, 2023 at 13:17 Medical Diagnosis: ARF Onset Date: Jan 25, 2023 Therapy Diagnosis Therapy Diagnosis: debility/weakness Height/Weight Weight (Pounds): 205 Weight (Ounces): 8.0 Precautions Precautions/Isolations: Fall Prevention, Standard Precautions Referral Physician: Javed Reason for Referral: Evaluation/Treatment Medical History Pertinent Medical History: CAD, COPD, HTN, Neuropathy, Smoking Current History ER secondary to SOA Reviewed History: Yes Social History Home: addition on daughters house Current Living Status: Other Family Entry Into Home: Stairs With Railing PT Steps Into Home: 3 (from outside entry, no steps from inside existing home) Prior Prior Level of Function SCALE: Activities may be completed with or without assistive devices. 7-[place]-gjpskbs completes the activity by him/herself with no assistance from a helper. 5-Set-up or Clean-up Assistance-helper sets up or cleans up; patient completes activity. [place] assists only prior to or following the activity. 4-Supervision or Touching Assistance-helper provides verbal cues and/or touching/steadying and/or contact guard assistance as patient completes activity. Assistance may be provided throughout the activity or intermittently. 3-Partial/Moderate Assistance-helper does LESS THAN HALF the effort. [place] lifts, holds or supports trunk or limbs, but provides less than half the effort. 2-Substantial/Maximal Assistance-helper does MORE THAN HALF the effort. [place] lifts or holds trunk or limbs and provides more than half the effort. 4-Wemxtoqjc-xpfnkb does ALL the effort. Patient does none of the effort to complete the activity. Or, the assistance of 2 or more helpers is required for the patient to complete the activity. If activity was not attempted, code reason: 7-Patient Refused. 9-Not Applicable-not attempted and the patient did not perform the activity before the current illness, exacerbation or injury. 10-Not Attempted due to Environmental Limitations-(lack of equipment, weather restraints, etc.). 88-Not Attempted due to Medical Conditions or Safety Concerns. Bed Mobility: 6 Transfers (B,C,W/C): 6 Gait: 6 Indoor Mobility (Ambulation): Independent Prior Devices Use: Walker PT Evaluation-Current Subjective Patient agrees to therapy. Objective Patient Orientation: Normal For Age Attachments: Oxygen ROM/Strength ROM Lower Extremities bilateral LE WFL Strength Lower Extremities 3+/5 grossly bilateral LE all planes Integumentary/Posture Bladder Incontinence: Yes Posture WFL Neuromuscular (Tone, Coordination, Reflexes) grossly intact Sensory Vision: Functional Hearing: Functional Hand Dominance: Right Transfers Lying to Sitting/Side of Bed(Q: 4 Sit to Stand (QC): 3 Chair/Yov-ur-Tizow Xfer(QC): 3 Toilet Transfer (QC): 3 Gait Mode of Locomotion: Walk Anticipated Mode of Locomotion: Walk Walk 10 feet (QC): 4 Walk 50 ft with 2 Turns(QC): 4 Walk 150 ft (QC): 88 Distance: 75' Gait Assistive Device: FWW Comments/Gait Description slow, functional gait sequence Balance Sitting Static: Normal Sitting Dynamic: Normal Standing Static: Fair Standing Dynamic: Fair Assessment/Needs Patient will benefit from skilled PT to address functional strength and mobility to improve current LOF to safely return to home at maximum LOF. Rehab Potential: Fair PT Aircraft Mechanic Goals Skilled Nursing Goals PT Skilled Nursing Goals Time Frame: Feb 10, 2023 Roll Left & Right (QC): 6 Sit to Lying (QC): 6 Lying-Sitting on Side/Bed(QC): 6 Sit to Stand (QC): 6 Chair/Vxl-sv-Dsbqn Xfer(QC): 6 Toilet Transfer (QC): 6 Walk 10 feet (QC): 6 Walk 50ft with 2 Turns (QC): 6 PT Plan Problem List Problem List: Activity Tolerance, Functional Strength, Safety, Balance, Gait, Transfer, Bed Mobility Treatment/Plan Treatment Plan: Continue Plan of Care Treatment Plan: Bed Mobility, Education, Functional Activity [place], Functional Strength, Gait, Safety, Therapeutic Exercise, Transfers Treatment Duration: Feb 10, 2023 Frequency: 6 times per week Estimated Hrs Per Day: .25 hour per day Patient and/or Family Agrees t: Yes Time Time In: 1311 Time Out: 1333 DATE: Jan 30, 2023 Total Billed Treatment Time: 22 Total Billed Treatment 1 visit EVMod 22 min SHERRI HERMOSILLO PT Jan 30, 2023 14:21
--- NOTE | 2023-01-30 14:24 | Progress Note ---
Subjective Subjective/Events-last exam Afebrile, states she feels about the same as yesterday, breathing feels about the same. Her son thinks she is able to speak more easily today. Objective Exam Last Set of Vital Signs Vital Signs Date Time Temp Pulse Resp B/P (MAP) Pulse Ox O2 Delivery O2 Flow Rate FiO2 01/30/23 11:45 36.2 73 16 161/79 (106) 92 High Flow N/C 5.00 01/29/23 11:06 55 Capillary Refill : Less Than 3 Seconds I&O Intake and Output 01/30/23 00:00 Intake Total 970 ml Output Total 800 ml Balance 170 ml Intake Oral 920 ml IV Total 50 ml Output Urine Total 800 ml # Voids 2 General: Alert Lungs: Other (ronchi bilaterally) Abdomen: Normal Bowel Sounds, Soft Neuro: Normal Speech Psych/Mental Status: Mood NL Results/Procedures Lab Laboratory Tests 01/29/23 16:15: Glucometer 238H 01/29/23 20:21: Glucometer 283H 01/30/23 05:26: White Blood Count 11.0, Red Blood Count 4.70, Hemoglobin 14.0, Hematocrit 43, Mean Corpuscular Volume 92, Mean Corpuscular Hemoglobin 30, Mean Corpuscular Hemoglobin Concent 32, Red Cell Distribution Width 14.1, Platelet Count 187, Mean Platelet Volume 10.6, Immature Granulocyte % (Auto) 1, Neutrophils (%) (Auto) 92H, Lymphocytes (%) (Auto) 4L, Monocytes (%) (Auto) 3, Eosinophils (%) (Auto) 0, Basophils (%) (Auto) 0, Neutrophils # (Auto) 10.2H, Lymphocytes # (Auto) 0.4L, Monocytes # (Auto) 0.3, Eosinophils # (Auto) 0.0, Basophils # (Auto) 0.0, Immature Granulocyte # (Auto) 0.1, Sodium Level 134L, Potassium Level 5.3H, Chloride Level 94L, Carbon Dioxide Level 32, Anion Gap 8, Blood Urea Nitrogen 80H, Creatinine 2.45H, Estimat Glomerular Filtration Rate 19, BUN/Creatinine Ratio 33, Glucose Level 136H, Calcium Level 8.9, Corrected Calcium 9.5, Phosphorus Level 3.8, Magnesium Level 2.7H, Total Bilirubin 0.5, Aspartate Amino Transf (AST/SGOT) 17, Alanine Aminotransferase (ALT/SGPT) 27, Alkaline Phosphatase 106, Total Protein 5.8L, Albumin 3.3 01/30/23 05:29: Glucometer 148H 01/30/23 10:52: Glucometer 186H Microbiology 01/26/23 Gram Stain - Final, Complete 01/26/23 Body Fluid Culture - Final, Complete 01/25/23 MRSA Screen - Final, Complete MRSA not isolated 01/25/23 Blood Culture - Preliminary, Resulted Assessment/Plan Assessment/Plan Assessment & Plan Acute on chronic respiratory failure requiring Vapotherm initially, currently on 4 lpm supplemental oxygen Acute on chronic congestive heart failure- appreciate Cardiology recommendations Pleural effusion- s/p thoracentesis, serum LDH not obtained, unable to calculate Light's criteria, gram stain negative for bacteria, culture negative to date. On cefepime. Chronic kidney disease NSTEMI likely type II [place] COPD with exacerbation- on dexamethasone, day 5 BCx with growth that is likely skin normal dm DVT prophylaxis- enoxaparin RICKI ALCARAZ MD Jan 30, 2023 14:24
[2023-01-30] MEDS: FLUTICASONE/VILANTEROL 100/25 MCG (7 DOSES) IH SCH (14:46)
[2023-01-30] MEDS: TIOTROPIUM INH 4 GM (SPIRIVA Respimat) IH SCH (14:47)
[2023-01-30] MEDS: ENOXAPARIN 30 MG/0.3 ML SYRINGE SQ SCH (15:14)
[2023-01-30] MEDS: FUROSEMIDE 40 MG TABLET PO SCH (17:07)
[2023-01-30] MEDS: cloNIDine 0.1 MG TABLET PO PRN (18:34)
[2023-01-30] MEDS: dilTIAZem ER 300 MG CAPSULE PO SCH (20:41)
[2023-01-30] MEDS: clonazePAM 1 MG TABLET PO SCH (20:41)
[2023-01-31] MEDS: CEFEPIME INJECTION 1,000 MG in NS (IVPB) 50 ML 50 ML IV SCH ×3 (00:23→23:31)
[2023-01-31 03:31] VITALS: BP 129/75
[2023-01-31 05:30] LABS: BASOPHILS % (AUTO) 0 % (0-10); EOSINOPHILS % (AUTO) 0 % (0-10); HEMATOCRIT 41 % (35-52); HEMOGLOBIN 13.2 g/dL (11.5-16.0); LYMPHOCYTES # (AUTO) 0.4 10^3/uL (1.0-4.0); LYMPHOCYTES % (AUTO) 5 % (12-44); MEAN CORPUSCULAR HEMOGLOBIN 29 pg (25-34); MEAN CORPUSCULAR HGB CONC 32 g/dL (32-36); MEAN CORPUSCULAR VOLUME 92 fL (80-99); MEAN PLATELET VOLUME 10.2 fL (9.0-12.2); MONOCYTES # (AUTO) 0.2 10^3/uL (0.0-1.0); MONOCYTES % (AUTO) 3 % (0-12); NEUTROPHILS # (AUTO) 7.5 10^3/uL (1.8-7.8); NEUTROPHILS % (AUTO) 91 % (42-75); PLATELET COUNT 161 10^3/uL (130-400); WHITE BLOOD COUNT 8.2 10^3/uL (4.3-11.0)
[2023-01-31 05:48] LABS: ALBUMIN 3.1 GM/DL (3.2-4.5); POTASSIUM 6.1 MMOL/L (3.6-5.0)
[2023-01-31 05:49] LABS: CALCIUM 8.7 MG/DL (8.5-10.1)
[2023-01-31 05:51] LABS: TOTAL PROTEIN 5.5 GM/DL (6.4-8.2)
[2023-01-31 05:52] LABS: BILIRUBIN,TOTAL 0.5 MG/DL (0.1-1.0)
[2023-01-31 05:54] LABS: CREATININE SERUM 2.35 MG/DL (0.60-1.30); PHOSPHORUS 4.2 MG/DL (2.3-4.7)
[2023-01-31 05:57] LABS: MAGNESIUM 2.9 MG/DL (1.6-2.4)
[2023-01-31] MEDS: POTASSIUM CL 10MEQ/50ML IVPB 50 ML IV SCH (06:11)
[2023-01-31] MEDS: inSUlin ASPART 1 UNIT/0.01 ML (PER UNIT) SC SCH ×4 (06:11→21:14)
[2023-01-31] MEDS: MAGNESIUM 1 GM/100 ML IVPB 100 ML IV SCH (06:11)
[2023-01-31] MEDS: FUROSEMIDE 40 MG TABLET PO SCH (06:31)
[2023-01-31 07:11] VITALS: BP 132/72
[2023-01-31] MEDS ORDERED: SODIUM POLYSTYRENE POWDER 15 GM BOTTLE PO ONE (07:15)
[2023-01-31] MEDS: RT-Ipratropium/Albuterol NEB 3 ML VIAL INH SCH ×4 (08:04→19:19)
[2023-01-31] MEDS ORDERED: SODIUM POLYSTYRENE POWDER 15 GM BOTTLE PO NR (09:00)
[2023-01-31] MEDS: ALLOPURINOL 100 MG TABLET PO SCH (09:04)
[2023-01-31] MEDS: carvediloL 6.25 MG TABLET PO SCH ×2 (09:04→18:26)
[2023-01-31] MEDS: SENNOSIDES 8.6 MG TABLET PO SCH ×2 (09:05→21:14)
[2023-01-31] MEDS: inSUlin DETERMIR 1 UNIT/0.01 ML (CHARGE PER UNIT) SQ SCH ×2 (09:05→21:14)
[2023-01-31] MEDS: hydrALAZINE 25 MG TABLET PO SCH ×3 (09:05→21:14)
[2023-01-31] MEDS: DOCUSATE SODIUM 100 MG CAPSULE PO SCH ×2 (09:05→21:14)
[2023-01-31] MEDS: LORATADINE 10 MG TABLET PO SCH (09:05)
[2023-01-31] MEDS: dexAMETHasone INJ 4 MG/ML SDV IV SCH (09:05)
[2023-01-31] MEDS: MICONAZOLE 2% POWDER 90 GM TOP SCH ×2 (09:05→21:15)
--- NOTE | 2023-01-31 09:27 | Occupational Ther Daily Note ---
OT Current Status-Daily Note Subjective Patient up in bathroom on arrival Mental Status/Objective Patient Orientation: Person, Place ADL-Treatment Very poor safety awareness, resistive to education d=for proper use ofFWW, transfer sequences and hygiene. Residual BM present following wiping, OT performed and noted pressure and possible empaction, notified RN. Patient impulsive and resistive to safety education w/ ambulation /W/ FWW and 02. Tangles self and required OT to STOP patient in motion to unwind. Patient apologizes several times and says "It is just the way it is" Therapy Code Descriptions/Definitions Functional [place] Measure: 0=Not Assessed/NA 4=Minimal Assistance 1=Total Assistance 5=Supervision or Setup 2=Maximal Assistance 6=Modified [place] 3=Moderate Assistance 7=Complete IndependenceSCALE: Activities may be completed with or without assistive devices. 9-Hrxlrjphqe-rzaajtr completes the activity by him/herself with no assistance from a helper. 5-Set-up or Clean-up Assistance-helper sets up or cleans up; patient completes activity. Ruth assists only prior to or following the activity. 4-Supervision or Touching Assistance-helper provides verbal cues and/or touching/steadying and/or contact guard assistance as patient completes activity. Assistance may be provided throughout the activity or intermittently. 3-Partial/Moderate Assistance-helper does LESS THAN HALF the effort. Ruth lifts, holds or supports trunk or limbs, but provides less than half the effort. 2-Substantial/Maximal Assistance-helper does MORE THAN HALF the effort. Ruth lifts or holds trunk or limbs and provides more than half the effort. 9-Oxgjdambn-yaqnzm does ALL the effort. Patient does none of the effort to complete the activity. Or, the assistance of 2 or more helpers is required for the patient to complete the activity. If activity was not attempted, code reason: 7-Patient Refused. 9-Not Applicable-not attempted and the patient did not perform the activity before the current illness, exacerbation or injury. 10-Not Attempted due to Environmental Limitations-(lack of equipment, weather restraints, etc.). 88-Not Attempted due to Medical Conditions or Safety Concerns. Eating (QC): 6 Oral Hygiene (QC): 5 Lower Body Dressing (QC): 4 On/Off Footwear: 3 Toileting Hygiene (QC): 3 Toilet Transfer (QC): 4 (VC for hand placement on GB, rocking motion and assist from OT to transfer off commode) Education OT Patient Education: Correct positioning, Modified ADL techniques, Progress toward Goal/Update tx plan, Purpose of tx/functional activities, Reviewed precautions, Rehab process, Safety issues, Transfer techniques Teaching Recipient: Patient Teaching Methods: Demonstration, Discussion Response to Teaching: Reinforcement Needed OT Custodial Goals Family Coach Goals Eating (QC): 6 Oral Hygiene (QC): 6 Toileting Hygiene (QC): 6 Shower/Bathe Self (QC): 6 Upper Body Dressing (QC): 6 Lower Body Dressing (QC): 6 On/Off Footwear (QC): 6 1=Demonstrate adherence to instructed precautions during ADL tasks. 2=Patient will verbalize/demonstrate understanding of assistive devices/modifications for ADL. 3=Patient will improve strength/tolerance for activity to enable patient to perform ADL's. OT Education/Plan Problem List/Assessment Assessment: Decreased Activ Tolerance, Decreased Safety Aware, Decreased UE Strength, Impaired Bed Mobility, Impaired Cognition, Impaired Coordination, Impaired Funct Balance, Impaired Self-Care Skills Discharge Recommendations Plan/Recommendations: Continue POC Treatment Plan/Plan of Care Treatment,Training & Education: Yes Patient would benefit from OT for education, treatment and training to promote independence in ADL's, mobility, safety and/or upper extremity function for ADL's. Plan of Care: ADL Retraining, Cognitive Retraining, Concurrent Therapy, Functional Mobility, Group Exercise/Act as Ind, UE Funct Exercise/Act Treatment Duration: Feb 05, 2023 Frequency: 3 times per week (3-5 tmes per week) Estimated Hrs Per Day: .25 hour per day Agreement: Yes Rehab Potential: Fair Remains up in chair for LABs Time Start Time: 09:08 Stop Time: 09:28 DATE: Jan 31, 2023 Total Time Billed (hr/min): 20 Billed Treatment Time ADL 20 min FLORINA WORLEY OT Jan 31, 2023 09:27
[2023-01-31 09:55] LABS: CALCIUM 8.6 MG/DL (8.5-10.1); CREATININE SERUM 2.45 MG/DL (0.60-1.30); POTASSIUM 5.8 MMOL/L (3.6-5.0)
[2023-01-31 11:31] VITALS: BP 130/72
[2023-01-31] MEDS: FLUTICASONE/VILANTEROL 100/25 MCG (7 DOSES) IH SCH ×2 (12:15→12:17)
[2023-01-31] MEDS: TIOTROPIUM INH 4 GM (SPIRIVA Respimat) IH SCH ×2 (12:16→12:18)
--- NOTE | 2023-01-31 12:37 | Cardiology Progress Note ---
Subjective Date Seen by Provider: Jan 31, 2023 Time Seen by Provider: 10:10 Subjective/Events-last exam Patient is sitting up in bed, still complaining of dyspnea. Objective-Cardiology Exam Last Set of Vital Signs Vital Signs 01/29/23 01/31/23 11:06 15:40 Temp 36.5 Pulse 82 Resp 17 B/P (MAP) 161/84 (109) Pulse Ox 90 O2 Delivery High Flow N/C O2 Flow Rate 6.00 FiO2 55 I&O Intake and Output 01/31/23 00:00 Intake Total 980 ml Output Total 850 ml Balance 130 ml Intake Oral 980 ml Output Urine Total 850 ml # Voids 3 General: Alert HEENT: Atraumatic Neck: Supple, No JVD Lungs: Other (ronchi bilaterally) Heart: Regular Rate Abdomen: Normal Bowel Sounds, Soft Extremities: No Clubbing, No Cyanosis Skin: No Rashes, No Significant Lesion Neuro: Normal Speech Psych/Mental Status: Mood NL Results Lab Laboratory Tests 01/31/23 05:18 01/31/23 09:30 01/31/23 13:45 A/P-Cardiology Admission Diagnosis Acute respiratory failure AE COPD AE CHF HTN Assessment/Plan Status post acute respiratory failure likely due to COPD exacerbation. Patient is an active smoker. Smoking cessation was strongly recommended. Possible acute on chronic systolic congestive heart failure. Echocardiogram shows an EF of 45 to 50%. Mildly elevated BNP. Could be due to RV strain. History of recurrent pleural effusion, underwent thoracentesis on this admission. Still having bilateral rales at the bases otherwise no abnormality Pulmonary hypertension likely secondary to severe COPD. Acute on chronic kidney disease. Continue to monitor renal function Borderline positive troponin: Serial troponin is negative. Possibility of type II [place] d/t respiratory failure Supervisory-Addendum Brief Supervisory Addendum Participated in pt care: history, MDM, physical Personally performed: exam, history, MDM Care discussed with: JONO Results interpretation: Verified all documentation Notes: Patient was seen and evaluated with Antonietta, examination performed, management plan was discussed, agree with the current scribed note, I made few changes to the note using Italic font Patient was seen at bedside sitting comfortably, complaining of abdominal distention, constipation Worsening renal function, hold Lasix. Had hyperkalemia I will give her Kayexalate enema, continue to monitor electrolytes closely ANTONIETTA SANTOS Jan 31, 2023 12:37 GEORGE RHODES MD Jan 31, 2023 17:26
[2023-01-31 14:12] LABS: CALCIUM 8.5 MG/DL (8.5-10.1); CREATININE SERUM 2.33 MG/DL (0.60-1.30); POTASSIUM 5.5 MMOL/L (3.6-5.0)
[2023-01-31] MEDS: ENOXAPARIN 30 MG/0.3 ML SYRINGE SQ SCH (15:25)
[2023-01-31] MEDS: oxyCODONE IMMEDIATE RELEASE 5 MG TABLET PO PRN ×2 (15:25→21:17)
[2023-01-31 15:40] VITALS: BP 161/84
[2023-01-31] MEDS ORDERED: SODIUM POLYSTYRENE POWDER 15 GM BOTTLE PR NR (15:45)
--- NOTE | 2023-01-31 19:10 | Progress Note ---
Subjective Subjective/Events-last exam Afebrile, states she feels poorly, very tired. Breathing isn't great. Objective Exam Last Set of Vital Signs Vital Signs Date Time Temp Pulse Resp B/P (MAP) Pulse Ox O2 Delivery O2 Flow Rate FiO2 01/31/23 15:40 36.5 82 17 161/84 (109) 90 High Flow N/C 6.00 01/29/23 11:06 55 Capillary Refill : Less Than 3 Seconds I&O Intake and Output 01/31/23 00:00 Intake Total 980 ml Output Total 850 ml Balance 130 ml Intake Oral 980 ml Output Urine Total 850 ml # Voids 3 General: Alert, No Acute Distress Lungs: Other (ronchi throughout) Heart: Regular Rate Abdomen: Normal Bowel Sounds, Soft Neuro: Normal Speech Psych/Mental Status: Mood NL Results/Procedures Lab Laboratory Tests 01/30/23 20:25: Glucometer 163H 01/31/23 05:18: White Blood Count 8.2, Red Blood Count 4.49, Hemoglobin 13.2, Hematocrit 41, Mean Corpuscular Volume 92, Mean Corpuscular Hemoglobin 29, Mean Corpuscular Hemoglobin Concent 32, Red Cell Distribution Width 14.2, Platelet Count 161, Mean Platelet Volume 10.2, Immature Granulocyte % (Auto) 1, Neutrophils (%) (Auto) 91H, Lymphocytes (%) (Auto) 5L, Monocytes (%) (Auto) 3, Eosinophils (%) (Auto) 0, Basophils (%) (Auto) 0, Neutrophils # (Auto) 7.5, Lymphocytes # (Auto) 0.4L, Monocytes # (Auto) 0.2, Eosinophils # (Auto) 0.0, Basophils # (Auto) 0.0, Immature Granulocyte # (Auto) 0.1, Sodium Level 133L, Potassium Level 6.1H, Chloride Level 93L, Carbon Dioxide Level 28, Anion Gap 12, Blood Urea Nitrogen 89H, Creatinine 2.35H, Estimat Glomerular Filtration Rate 20, BUN/Creatinine Ratio 38, Glucose Level 114H, Calcium Level 8.7, Corrected Calcium 9.4, Phosphorus Level 4.2, Magnesium Level 2.9H, Total Bilirubin 0.5, Aspartate Amino Transf (AST/SGOT) 19, Alanine Aminotransferase (ALT/SGPT) 31, Alkaline Phosphatase 87, Total Protein 5.5L, Albumin 3.1L 01/31/23 05:19: Glucometer 108 01/31/23 09:30: Sodium Level 131L, Potassium Level 5.8H, Chloride Level 91L, Carbon Dioxide Level 29, Anion Gap 11, Blood Urea Nitrogen 87H, Creatinine 2.45H, Estimat Glomerular Filtration Rate 19, BUN/Creatinine Ratio 36, Glucose Level 254H, Calcium Level 8.6 01/31/23 10:54: Glucometer 288H 01/31/23 13:45: Sodium Level 131L, Potassium Level 5.5H, Chloride Level 91L, Carbon Dioxide Level 31, Anion Gap 9, Blood Urea Nitrogen 89H, Creatinine 2.33H, Estimat Glomerular Filtration Rate 20, BUN/Creatinine Ratio 38, Glucose Level 235H, Calcium Level 8.5 01/31/23 15:38: Glucometer 232H Microbiology 01/26/23 Gram Stain - Final, Complete 01/26/23 Body Fluid Culture - Final, Complete 01/25/23 MRSA Screen - Final, Complete MRSA not isolated 01/25/23 Blood Culture - Final, Complete Assessment/Plan Assessment/Plan Assessment & Plan Acute on chronic respiratory failure requiring Vapotherm initially, increased to 6 lpm this am. Suspect secondary to CHF exacerbation, possible pneumonia as below and COPD exacerbation. Acute on chronic congestive heart failure- appreciate Cardiology recommendations. Pleural effusion- s/p thoracentesis, serum LDH not obtained, unable to calculate Light's criteria, gram stain negative for bacteria, culture negative to date. On cefepime. Chronic kidney disease Hyperkalemia- significantly increased today, kayexalate given, discussed with her and family if we cannot manage with medication, next step may be dialysis and they are open to transfer for that and continued aggressive care if needed. Will work on constipation and potassium lowering treatments and monitor closely. NSTEMI likely type II [place] COPD with exacerbation- on dexamethasone, will decrease dose Hyperglycemia- suspect secondary to steroids, decreasing dose as above BCx with growth that is likely skin normal dm DVT prophylaxis- enoxaparin RICKI ALCARAZ MD Jan 31, 2023 19:10
[2023-01-31 19:50] VITALS: BP 128/78
[2023-01-31] MEDS: clonazePAM 1 MG TABLET PO SCH (21:14)
[2023-01-31] MEDS: MELATONIN 3 MG TABLET PO PRN (21:16)
[2023-01-31] MEDS: dilTIAZem ER 300 MG CAPSULE PO SCH (21:17)
[2023-02-01 00:22] VITALS: BP 159/80
[2023-02-01 03:21] VITALS: BP 148/78
[2023-02-01 05:49] LABS: BASOPHILS % (AUTO) 0 % (0-10); EOSINOPHILS % (AUTO) 0 % (0-10); MEAN PLATELET VOLUME 10.1 fL (9.0-12.2)
[2023-02-01 05:51] LABS: HEMATOCRIT 43 % (35-52); HEMOGLOBIN 13.7 g/dL (11.5-16.0); LYMPHOCYTES # (AUTO) 0.5 10^3/uL (1.0-4.0); LYMPHOCYTES % (AUTO) 6 % (12-44); MEAN CORPUSCULAR HEMOGLOBIN 30 pg (25-34); MEAN CORPUSCULAR HGB CONC 32 g/dL (32-36); MEAN CORPUSCULAR VOLUME 93 fL (80-99); MONOCYTES # (AUTO) 0.6 10^3/uL (0.0-1.0); MONOCYTES % (AUTO) 7 % (0-12); NEUTROPHILS # (AUTO) 7.5 10^3/uL (1.8-7.8); NEUTROPHILS % (AUTO) 87 % (42-75); PLATELET COUNT 143 10^3/uL (130-400); WHITE BLOOD COUNT 8.7 10^3/uL (4.3-11.0)
[2023-02-01] MEDS: inSUlin ASPART 1 UNIT/0.01 ML (PER UNIT) SC SCH ×2 (06:00→11:11)
[2023-02-01 06:08] LABS: ALBUMIN 3.3 GM/DL (3.2-4.5); BILIRUBIN,TOTAL 0.6 MG/DL (0.1-1.0); CALCIUM 8.8 MG/DL (8.5-10.1); CREATININE SERUM 2.28 MG/DL (0.60-1.30); PHOSPHORUS 4.1 MG/DL (2.3-4.7); POTASSIUM 5.3 MMOL/L (3.6-5.0); TOTAL PROTEIN 5.5 GM/DL (6.4-8.2)
[2023-02-01 08:09] VITALS: BP 153/82
[2023-02-01] MEDS: RT-Ipratropium/Albuterol NEB 3 ML VIAL INH SCH ×2 (08:12→11:08)
[2023-02-01] MEDS: FLUTICASONE/VILANTEROL 100/25 MCG (7 DOSES) IH SCH (08:13)
[2023-02-01] MEDS: TIOTROPIUM INH 4 GM (SPIRIVA Respimat) IH SCH (08:13)
[2023-02-01] MEDS ORDERED: dexAMETHasone INJ 4 MG/ML SDV IV SCH (09:00)
--- NOTE | 2023-02-01 09:11 | Cardiology Progress Note ---
Subjective Date Seen by Provider: Feb 01, 2023 Time Seen by Provider: 09:10 Subjective/Events-last exam Patient was seen at bedside, still having generalized weakness, hyperkalemia improving slowly Objective-Cardiology Exam Last Set of Vital Signs Vital Signs 01/29/23 02/01/23 11:06 03:21 Temp 36.2 Pulse 76 Resp 18 B/P (MAP) 148/78 (101) Pulse Ox 91 O2 Delivery NIV CPAP O2 Flow Rate 3.50 FiO2 55 I&O l Intake and Output 02/01/23 00:00 Intake Total 1320 ml Balance 1320 ml Intake Oral 1320 ml # Voids 6 # Bowel Movements 2 General: Alert, Cooperative, No Acute Distress HEENT: Atraumatic Neck: Supple, No JVD Lungs: Other (ronchi throughout) Heart: Regular Rate Abdomen: Normal Bowel Sounds, Soft Extremities: No Clubbing, No Cyanosis Skin: No Rashes, No Significant Lesion Neuro: Normal Speech Psych/Mental Status: Mood NL Results Lab Laboratory Tests 01/31/23 09:30 01/31/23 13:45 02/01/23 05:22 A/P-Cardiology Admission Diagnosis Acute respiratory failure AE COPD AE CHF HTN Assessment/Plan Status post acute respiratory failure likely due to COPD exacerbation. Patient is an active smoker. Smoking cessation was strongly recommended. Possible acute on chronic systolic congestive heart failure. Echocardiogram shows an EF of 45 to 50%. Mildly elevated BNP. Could be due to RV strain. History of recurrent pleural effusion, underwent thoracentesis on this admission. Still having bilateral rales at the bases otherwise no abnormality Pulmonary hypertension likely secondary to severe COPD. Acute on chronic renal failure Hyperkalemia Received Kayexalate yesterday Still hyperkalemic today Managed by medical team Borderline positive troponin: Serial troponin is negative. Possibility of type II [place] d/t respiratory failure GEORGE RHODES MD Feb 01, 2023 09:11
[2023-02-01] MEDS: SENNOSIDES 8.6 MG TABLET PO SCH (09:14)
[2023-02-01] MEDS: LORATADINE 10 MG TABLET PO SCH (09:14)
[2023-02-01] MEDS: ALLOPURINOL 100 MG TABLET PO SCH (09:14)
[2023-02-01] MEDS: carvediloL 6.25 MG TABLET PO SCH (09:14)
[2023-02-01] MEDS: hydrALAZINE 25 MG TABLET PO SCH ×2 (09:14→11:50)
[2023-02-01] MEDS: DOCUSATE SODIUM 100 MG CAPSULE PO SCH (09:14)
[2023-02-01] MEDS: MICONAZOLE 2% POWDER 90 GM TOP SCH (09:15)
[2023-02-01] MEDS: inSUlin DETERMIR 1 UNIT/0.01 ML (CHARGE PER UNIT) SQ SCH (09:15)
[2023-02-01] MEDS ORDERED: LACTULOSE SYRUP 10GM/15ML 30ML UDC PO SCH (11:00)
--- NOTE | 2023-02-01 11:09 | Physical Therapy Daily Note ---
PT Daily Note-Current Subjective Patient agrees to therapy. Noted SOA with minimal activity with O2 in place. Family present. Pain Section J - Health Conditions 1. Rarely or not at all 2. Occasionally 3. Frequently 4. Almost constantly 8. Unable to answer Pain Effect on Sleep: 1 Pain Interference with Therapy: 1 Pain Interference w/Day-to-Day: 1 Mental Status Attachments: Oxygen Transfers SCALE: Activities may be completed with or without assistive devices. 0-Owgabexyte-ygpnynx completes the activity by him/herself with no assistance from a helper. 5-Set-up or Clean-up Assistance-helper sets up or cleans up; patient completes activity. [place] assists only prior to or following the activity. 4-Supervision or Touching Assistance-helper provides verbal cues and/or touching/steadying and/or contact guard assistance as patient completes activity. Assistance may be provided throughout the activity or intermittently. 3-Partial/Moderate Assistance-helper does LESS THAN HALF the effort. [place] lifts, holds or supports trunk or limbs, but provides less than half the effort. 2-Substantial/Maximal Assistance-helper does MORE THAN HALF the effort. [place] lifts or holds trunk or limbs and provides more than half the effort. 1-Jtiehvezn-hvfhzu does ALL the effort. Patient does none of the effort to complete the activity. Or, the assistance of 2 or more helpers is required for the patient to complete the activity. If activity was not attempted, code reason: 7-Patient Refused. 9-Not Applicable-not attempted and the patient did not perform the activity before the current illness, exacerbation or injury. 10-Not Attempted due to Environmental Limitations-(lack of equipment, weather restraints, etc.). 88-Not Attempted due to Medical Conditions or Safety Concerns. Lying to Sitting/Side of Bed(Q: 4 Sit to Stand (QC): 4 Chair/Rdu-qu-Lxvcx Xfer(QC): 4 Toilet Transfer (QC): 4 Gait Training Distance: 15' x 1/60' x 1 Walk 10 feet (QC): 4 Walk 50 ft with 2 Turns(QC): 4 Gait Assistive Device: FWW extended UE's with FWW use/functional gait sequence Assessment Patient able to toilet self on this date. Patient has increase SOA with minimal activity and is up in recliner with needs met. Continue to increase activity as tolerated by patient. PT [facility] Goals Food Stand Manager Goals PT [facility] Goals Time Frame: Feb 10, 2023 Roll Left & Right (QC): 6 Sit to Lying (QC): 6 Lying-Sitting on Side/Bed(QC): 6 Sit to Stand (QC): 6 Chair/Jpw-af-Wfelz Xfer(QC): 6 Toilet Transfer (QC): 6 Walk 10 feet (QC): 6 Walk 50ft with 2 Turns (QC): 6 PT Plan Treatment/Plan Treatment Plan: Continue Plan of Care Treatment Plan: Bed Mobility, Education, Functional Activity [place], Functional Strength, Gait, Safety, Therapeutic Exercise, Transfers Treatment Duration: Feb 10, 2023 Frequency: 6 times per week Estimated Hrs Per Day: .25 hour per day Patient and/or Family Agrees t: Yes Time Time In: 951 Time Out: 1002 DATE: Feb 01, 2023 Total Billed Treatment Time: 11 Total Billed Treatment 1 visit FA 11 min SHERRI HERMOSILLO PT Feb 01, 2023 11:09
[2023-02-01 11:31] VITALS: BP 135/71
--- NOTE | 2023-02-01 11:40 | Occupational Ther Daily Note ---
OT Current Status-Daily Note Subjective PATIENT IS AWAKE LAYING N BED, LOW MOTIVATION TO GET OUT OF BED. BED POSITIONED TO SIMULATE AT HOME, EDUCATION TO AMBULATE TO BATHROOM NOT USE MERVIN RAM Mental Status/Objective Patient Orientation: Person, Place, Time, Situation ADL-Treatment PATIENT AMBULATED TO BATHROOM TO URINATE, MANAGE GARMENTS MIN ASSIST, WASH HANDS AT SINK W/ FWW NAVIGATIONAL INSTRUCTION, TOILET TRANSFER REQUIRED MODERATE ASSIST, SECOND TRAIL MIN ASSIST W/ USE OF GB AND PATIENT LISTENING TO INTERVENTION INSTRUCTION Therapy Code Descriptions/Definitions Functional [place] Measure: 0=Not Assessed/NA 4=Minimal Assistance 1=Total Assistance 5=Supervision or Setup 2=Maximal Assistance 6=Modified [place] 3=Moderate Assistance 7=Complete IndependenceSCALE: Activities may be completed with or without assistive devices. 5-Opyintetui-kvlxjqi completes the activity by him/herself with no assistance from a helper. 5-Set-up or Clean-up Assistance-helper sets up or cleans up; patient completes activity. [place] assists only prior to or following the activity. 4-Supervision or Touching Assistance-helper provides verbal cues and/or touching/steadying and/or contact guard assistance as patient completes activity. Assistance may be provided throughout the activity or intermittently. 3-Partial/Moderate Assistance-helper does LESS THAN HALF the effort. [place] lifts, holds or supports trunk or limbs, but provides less than half the effort. 2-Substantial/Maximal Assistance-helper does MORE THAN HALF the effort. [place] lifts or holds trunk or limbs and provides more than half the effort. 0-Qnxkhysbi-xbryds does ALL the effort. Patient does none of the effort to complete the activity. Or, the assistance of 2 or more helpers is required for the patient to complete the activity. If activity was not attempted, code reason: 7-Patient Refused. 9-Not Applicable-not attempted and the patient did not perform the activity before the current illness, exacerbation or injury. 10-Not Attempted due to Environmental Limitations-(lack of equipment, weather restraints, etc.). 88-Not Attempted due to Medical Conditions or Safety Concerns. Eating (QC): 6 Oral Hygiene (QC): 5 On/Off Footwear: 2 Toileting Hygiene (QC): 4 Toilet Transfer (QC): 3 Education Teaching Recipient: Patient Teaching Methods: Demonstration, Discussion Response to Teaching: Verbalize Understanding, Return Demonstration (IMPROVIN G), Reinforcement Needed OT Doll Surgeon Goals Doll Surgeon Goals Eating (QC): 6 Oral Hygiene (QC): 6 Toileting Hygiene (QC): 6 Shower/Bathe Self (QC): 6 Upper Body Dressing (QC): 6 Lower Body Dressing (QC): 6 On/Off Footwear (QC): 6 1=Demonstrate adherence to instructed precautions during ADL tasks. 2=Patient will verbalize/demonstrate understanding of assistive devices/modifications for ADL. 3=Patient will improve strength/tolerance for activity to enable patient to perform ADL's. OT Education/Plan Problem List/Assessment Assessment: Decreased Activ Tolerance, Decreased Safety Aware, Decreased UE Strength, Impaired Cognition, Impaired Coordination, Restricted Funct UE ROM Discharge Recommendations Plan/Recommendations: Continue POC Treatment Plan/Plan of Care Treatment,Training & Education: Yes Patient would benefit from OT for education, treatment and training to promote independence in ADL's, mobility, safety and/or upper extremity function for ADL's. Plan of Care: ADL Retraining, Cognitive Retraining, Concurrent Therapy, Functional Mobility, Group Exercise/Act as Ind, UE Funct Exercise/Act Treatment Duration: Feb 05, 2023 Frequency: 3 times per week (3-5 tmes per week) Estimated Hrs Per Day: .25 hour per day Agreement: Yes Rehab Potential: Fair SITTING IN RECLINER, ALL NEEDS MET Time Start Time: 09:45 Stop Time: 10:00 DATE: Feb 01, 2023 Total Time Billed (hr/min): 15 Billed Treatment Time ADL 15 MIN FLORINA WORLEY OT Feb 01, 2023 11:40
[2023-02-01] MEDS ORDERED: FUROSEMIDE 40 MG TABLET PO SCH (17:00)
--- NOTE | 2023-02-01 17:47 | Discharge Summary ---
Discharge Summary Hospital Course Hospital Course Date of Admission: Jan 25, 2023 at 13:17 Admission Diagnosis : Family Physician/Provider: Alejandra Wooten MD Date of Discharge: 02/01/23 Discharge Diagnosis: Acute on chronic respiratory failure requiring Vapotherm initially, down to 3.5 lpm supplemental O2 by nasal cannula at time of d/c to SWB status. Suspect secondary to CHF exacerbation, possible pneumonia as below and COPD exacerbation. Acute on chronic congestive heart failure- appreciate Cardiology recommendations. Pleural effusion- s/p thoracentesis, serum LDH not obtained, unable to calculate Light's criteria, gram stain negative for bacteria, culture negative to date. On cefepime, discharged to SWB status. Chronic kidney disease Hyperkalemia- significantly increased 01/31, kayexalate given, discussed with her and family if we cannot manage with medication, next step may be dialysis and they are open to transfer for that and continued aggressive care if needed. Improved 02/01, continue close monitoring and prn treatments. NSTEMI likely type II [place] COPD with exacerbation- on dexamethasone, dose decreased 01/31. Hyperglycemia- suspect secondary to steroids, decreased dose as above BCx with growth that is likely skin normal dm DVT prophylaxis- enoxaparin Hospital Course: See discharge diagnosis. Patient changed to SWB status for continued care. Labs and Pending Lab Test: Laboratory Tests 01/31/23 20:03: Glucometer 213H 02/01/23 05:22: White Blood Count 8.7, Red Blood Count 4.63, Hemoglobin 13.7, Hematocrit 43, Mean Corpuscular Volume 93, Mean Corpuscular Hemoglobin 30, Mean Corpuscular Hemoglobin Concent 32, Red Cell Distribution Width 14.3, Platelet Count 143, Mean Platelet Volume 10.1, Immature Granulocyte % (Auto) 1, Neutrophils (%) (Auto) 87H, Lymphocytes (%) (Auto) 6L, Monocytes (%) (Auto) 7, Eosinophils (%) (Auto) 0, Basophils (%) (Auto) 0, Neutrophils # (Auto) 7.5, Lymphocytes # (Auto) 0.5L, Monocytes # (Auto) 0.6, Eosinophils # (Auto) 0.0, Basophils # (Auto) 0.0, Immature Granulocyte # (Auto) 0.1, Percent Immature Platelet Fraction 3.1, Sodium Level 137, Potassium Level 5.3H, Chloride Level 92L, Carbon Dioxide Level 34H, Anion Gap 11, Blood Urea Nitrogen 90H, Creatinine 2.28H, Estimat Glomerular Filtration Rate 21, BUN/Creatinine Ratio 39, Glucose Level 80, Calcium Level 8.8, Corrected Calcium 9.4, Phosphorus Level 4.1, Magnesium Level 3.0H, Total Bilirubin 0.6, Aspartate Amino Transf (AST/SGOT) 20, Alanine Aminotransferase (ALT/SGPT) 36, Alkaline Phosphatase 86, Total Protein 5.5L, Albumin 3.3 02/01/23 05:43: Glucometer 82 02/01/23 10:57: Glucometer 133H 02/01/23 15:22: Glucometer 181H Microbiology 01/26/23 Gram Stain - Final, Complete 01/26/23 Body Fluid Culture - Final, Complete 01/25/23 MRSA Screen - Final, Complete MRSA not isolated 01/25/23 Blood Culture - Final, Complete Home Meds Active Reported Stool Softener (Docusate Sodium) 100 Mg Capsule 100 Mg PO BID PRN Tylenol Extra Strength (Acetaminophen) 500 Mg Tablet 500-1,000 Mg PO Q8H PRN Cetirizine HCl 10 Mg Tablet 10 Mg PO DAILY Ventolin Hfa (Albuterol Sulfate) 90 Mcg Hfa.aer.ad 2 Puff INH Q6H PRN Trelegy Ellipta 100-62.5-25 (Fluticasone/Umeclidin/Vilanter) 100-62.5 Blst.w.dev 1 Puff INH HS Calcitriol 0.25 Mcg Capsule 0.25 Mcg PO SUN,SUN Carvedilol 6.25 Mg Tablet 6.25 Mg PO BID Iron (Ferrous Sulfate) 325 Mg (65 Mg Iron) Tablet 325 Mg PO BID Clonazepam 1 Mg Tablet 1 Mg PO HS Diltiazem 24Hr ER (Diltiazem HCl) 300 Mg Cap.er.24h 300 Mg PO HS Allopurinol 100 Mg Tablet 100 Mg PO DAILY Atorvastatin Calcium 80 Mg Tablet 80 Mg PO HS Furosemide 40 Mg Tablet 40 Mg PO DAILY Assessment/Pt DC Instructions Follow up after SWB d/c. Discharge Physical Examination Allergies: Coded Allergies: No Known Drug Allergies (Unverified , 03/20/19) General Appearance: No Apparent Distress Respiratory: Lungs Clear Cardiovascular: Regular Rate, Rhythm Extremity: Pedal Edema Skin: Warm/Dry Neurologic/Psychiatric: Alert, Normal Mood/Affect RICKI ALCARAZ MD Feb 01, 2023 17:47
--- NOTE | 2023-02-02 13:56 | Diagnostic Imaging Report ---
Indication: Sonographic guidance for thoracentesis. Exam confirms a large volume of right-sided pleural fluid. The overlying skin was marked for planned thoracentesis. IMPRESSION: Sonography confirms at least moderate to large right pleural effusion. Skin marked for scheduled thoracentesis. Dictated by: Dictated on workstation # [id number]
== END 2023-02-01 12:40 | disposition swing bed (61) | DRG 280 ==
LOC: EDUNIT# 11:04 → ER 11:06 → ICU 13:17 → 4TH 01-28 17:50
PROVIDERS: ADMIT Internal Medicine; ATTEND Family Medicine
PROC: 0W993ZZ Drainage of Right Pleural Cavity, Percutaneous Approach (ICD-10-PCS; principal; 2023-01-26)
PROC: 5A0945A Assistance with Respiratory Ventilation, 24-96 Consecutive Hours, High Flow/Velocity Cannula (ICD-10-PCS; 2023-01-27)
PROC: 5A09357 Assistance with Respiratory Ventilation, Less than 24 Consecutive Hours, Continuous Positive Airway Pressure (ICD-10-PCS; 2023-01-29)
DX: I13.0 Hypertensive heart and chronic kidney disease with heart failure and stage 1 through stage 4 chronic kidney disease, or unspecified chronic kidney disease (principal); I50.33 Acute on chronic diastolic (congestive) heart failure; I21.A1 Myocardial infarction type 2; J18.9 Pneumonia, unspecified organism; J96.21 Acute and chronic respiratory failure with hypoxia; J44.1 Chronic obstructive pulmonary disease with (acute) exacerbation; J90 Pleural effusion, not elsewhere classified; R78.81 Bacteremia; J44.0 Chronic obstructive pulmonary disease with (acute) lower respiratory infection; N17.9 Acute kidney failure, unspecified; Z99.81 Dependence on supplemental oxygen; Z79.01 Long term (current) use of anticoagulants; Z79.899 Other long term (current) drug therapy; F17.200 Nicotine dependence, unspecified, uncomplicated; I25.10 Atherosclerotic heart disease of native coronary artery without angina pectoris; I25.2 Old myocardial infarction; G62.9 Polyneuropathy, unspecified; Z86.73 Personal history of transient ischemic attack (TIA), and cerebral infarction without residual deficits; M10.9 Gout, unspecified; F41.9 Anxiety disorder, unspecified; N18.9 Chronic kidney disease, unspecified; Z66 Do not resuscitate; Z95.5 Presence of coronary angioplasty implant and graft; E87.5 Hyperkalemia; R73.9 Hyperglycemia, unspecified; I27.20 Pulmonary hypertension, unspecified
CPT/HCPCS: 36415; 36600; 71045; 80048; 80053; 80202; 82042; 82805; 82945; 82947; 83605; 83615; 83735; 83880; 83986; 84100; 84157; 84315; 84484; 85007; 85025; 85027; 85610; 85730; 87040; 87070; 87077; 87081; 87205; 89051; 93005; 93306; 94640; 94664; 94760; 96374; 96375

== ENCOUNTER 2023-02-01 12:30 | Inpatient (IN) | payer MEDICARE, MEDICAID ==
[~2023-02-01] VITALS: Ht 157 cm; Wt 103.5 kg
[2023-02-01] MEDS ORDERED: NS IV 500 ML 500 ML IV PRN (12:45)
[2023-02-01] MEDS ORDERED: ACETAMINOPHEN 325 MG TABLET PO PRN (12:45)
[2023-02-01] MEDS ORDERED: ACETAMINOPHEN 500 MG TABLET PO PRN (12:45)
[2023-02-01] MEDS ORDERED: BISACODYL 10 MG SUPPOSITORY PR PRN (12:45)
[2023-02-01] MEDS ORDERED: DOCUSATE SODIUM 100 MG CAPSULE PO PRN (12:45)
[2023-02-01] MEDS ORDERED: diphenhydrAMINE 25 MG TABLET PO PRN (12:45)
[2023-02-01] MEDS ORDERED: MELATONIN 3 MG TABLET PO PRN (12:45)
[2023-02-01] MEDS ORDERED: fentaNYL INJECTION 100 MCG/2 ML VIAL IVP PRN (12:45)
[2023-02-01] MEDS ORDERED: ANTACID SUSPENSION 30 ML UDC PO PRN (12:45)
[2023-02-01] MEDS ORDERED: diphenhydrAMINE INJ 50 MG/ML VIAL IVP PRN (12:45)
[2023-02-01] MEDS ORDERED: cloNIDine 0.1 MG TABLET PO PRN (12:45)
[2023-02-01] MEDS ORDERED: CALCIUM CARBONATE 500 MG CHEW TABLET PO PRN (12:45)
[2023-02-01] MEDS ORDERED: ONDANSETRON 4 MG ORAL DISSOLVE TABLET PO PRN (12:45)
[2023-02-01] MEDS ORDERED: ONDANSETRON INJECTION 4 MG/2 ML (SDV) IV PRN (12:45)
--- OUTSIDE RECORDS SUMMARY | 2023-02-01 13:15 | XMS REPORT | CCD ---
Author Author Auto Generated, FELIZ Fish Organization [facility] Address Unknown Phone Unavailable Care Team Providers Care Supervisor Forming And Tempering Name Role Phone OMERO KELLOGG, MICHAEL ALBERT CP [phone] DR Tori MADRID DO RP Allergies, Adverse Reactions, Alerts Substance Reaction Status penicillin hives Active Vital Signs Most recent to oldest [Reference Range]: 1 2 3 Temperature Oral [96.4-99.1 DegF] 98.4 DegF (04/04/2010 20:20:00) 98.3 DegF (04/04/2010 19:20:00) 98.1 DegF (04/04/2010 16:30:00) Heart Rate [60-100 bpm] 80 bpm (04/04/2010 20:20:00) 78 bpm (04/04/2010 19:50:00) 88 bpm (04/04/2010 19:20:00) Respiratory Rate Spontaneous [14-20 br/min] 16 br/min (04/04/2010 20:20:00) 16 br/min (04/04/2010 19:50:00) 16 br/min (04/04/2010 19:20:00) O2 Saturation [92-100 %] 98 % (04/04/2010 20:20:00) 99 % (04/04/2010 19:50:00) 97 % (04/04/2010 19:20:00) O2 Delivery Device Room air (04/04/2010 20:20:00) Room air (04/04/2010 19:50:00) Room air (04/04/2010 16:30:00) Systolic Blood Pressure NBP [90-150 mmHg] 118 mmHg (04/04/2010 20:20:00) 115 mmHg (04/04/2010 19:50:00) 129 mmHg (04/04/2010 19:20:00) Diastolic Blood Pressure NBP [60-90 mmHg] 74 mmHg (04/04/2010 20:20:00) 77 mmHg (04/04/2010 19:50:00) 74 mmHg (04/04/2010 19:20:00) Blood Pressure NBP MAP 89 mmHg (04/04/2010 20:20:00) 90 mmHg (04/04/2010 19:50:00) 92 mmHg (04/04/2010 19:20:00) Actual Weight in kg 60.384 kg (04/04/2010 16:30:00) Actual Weight in lbs 133.1 Lb (04/04/2010 16:30:00) Body Mass Index 22 m2 (04/04/2010 16:30:00) Height in cm 165.10 cm (04/04/2010 16:30:00) Height in inches 65.00 inch (04/04/2010 16:30:00) Pain Level 0 (04/04/2010 16:30:00) Pain Goal 0 (04/04/2010 16:30:00)
--- OUTSIDE RECORDS SUMMARY | 2023-02-01 13:16 | XMS REPORT ---
Author Author [facility] ter of [facility] ter of [facility] Address Unknown Phone Unavailable Care Team Providers Care Outsole Skiver Name Role Phone DENISHA RAO Unavailable Salo Janet Unavailable Unavailable MARTELL PageMAN Unavailable Unavai lable PROBLEMS Type Condition ICD9-CM Code VHA20-KS Code Onset Dates Condition Status W/U Status Risk SNOMED Code Notes Problem Essential (primary) hypertension I10 confirmed 28251586 Problem Chronic obstructive pulmonary disease, unspecified COPD type J44.9 confirmed 34754472 Problem Chronic kidney disease, stage 4 (severe) N18.4 confirmed 382639628 Problem 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 confirmed 548102884 -0027236 4_Migr ated Problem Hypovitaminos is D E55.9 confirmed 65739061 Problem Severe obesity (BMI 35.0-39.9) with comorbidity E66.01 Mar, confirmed 581061425 -64597 4_Migr ated Problem Incisional hernia without mention of obstruction or gangrene K43.2 Nov, confirmed 050536224 -22797 4_Migr ated Problem Acute on chronic respiratory failure J96.20 confirmed 57846040 Problem Seasonal allergic rhinitis, unspecified trigger J30.2 confirmed 822242248 Problem Other iron deficiency anemias D50.8 confirmed 49476531 Problem 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 confirmed 98963009 Problem Nocturnal hypoxia G47.34 Aug, confirmed 675947230 -02223 4_Migr ated Problem CKD (chronic kidney disease) stage 3, GFR 30-59 ml/min N18.3 06 Jan, 2017 confirmed 930705052 -58300 4_Migr ated Problem Sleep apnea G47.30 Dec, confirmed 17427154 -32899 4_Migr ated Problem Elevated fasting glucose R73.01 Jul, confirmed 877971116 -42927 4_Migr ated Problem Anxiety F41.9 confirmed 78044635 Problem Essential hypertension I10 confirmed 39372157 Problem Mixed hyperlipidemi a E78.2 confirmed 775075886 Problem Chronic gout of multiple sites, unspecified cause M1A.09X0 confirmed 39547067 Problem Dependence on supplemental oxygen Z99.81 confirmed 7987003836 07 Problem COPD exacerbation J44.1 confirmed 485826572 Problem Chronic bronchitis, unspecified chronic bronchitis type J42 confirmed 10465795 Problem Decreased breath sounds R06.89 confirmed 89925375 Problem Tobacco use Z72.0 Jun, confirmed 648150611 -17880 4_Migr ated Problem Oxygen dependent Z99.81 confirmed 1436008712 07 Problem Peripheral vascular disease I73.9 Jul, confirmed 679358844 -30610 4_Migr ated Problem Essential hypertension, benign I10 confirmed 9562006 35058 4_Migr ated Problem Acute and chronic respiratory failure with hypoxia J96.21 confirmed 1841709220 8024151 Problem Chronic obstructive pulmonary disease with (acute) exacerbation J44.1 confirmed 867363202 Problem 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.0 confirmed 2594501952 9107 Problem Acute on chronic diastolic congestive heart failure I50.33 confirmed 163562929 ALLERGIES No Known Allergies ENCOUNTERS from 1940 to 2022-05-14 Encounter Location Date Provider Diagnosis [facility] [address] [id number] [place] [address] May, DENISHA RAO IMMUNIZATIONS Vaccine Route Administration Date Status prevnar pcv 13 (history) Unknown Apr 07, 2016 Adm inistered influenza (history) Unknown Apr 07, 2016 Administ ered 1st Booster MODERNA COVID-19 , mRNA, 0.25mL Unknown Jul 18, 2021 Refused PRIVATE FLUZONE HIGH DOSE QU AD 0.7ML (65 and UP) 2020 Unknown Jul 18, 2021 Refused 2nd Dose HRSA MODERNA, COVID -19, 0.5mL IM Intramuscular August 23, 2020 Administered 1st Dose HRSA MODERNA, COVID -19, 0.5mL IM Intramuscular July 26, 2020 Administered PRIVATE TDAP (BOOSTRIX) IM Intramuscular Dec 29, 2020 Administered PRIVATE PPSV23 (PNEUMOVAX) IM Intramuscular Dec 29 21 Administered SOCIAL HISTORY Sex Assigned At : Social History Observation Description Sex Assigned At Unknown Alcohol Screen (Audit-C) Question Answer Notes Did you have a drink containing alcohol in the p ast year? No Points 0 Interpretation Negative Cessation Question Answer Notes Date Tobacco Cessation Provided: 06/09/2020 PHQ2 Question Answer Notes In the last 2 weeks, how oft en have you had little interest or pleasure in doing things? Not at all In the last 2 weeks, how oft en have you been feeling down, depressed, or hopeless? Not at all Total PHQ2 Score 0 Tobacco use other than smoking: Question Answer Notes Are you an other tobacco user? No REASON FOR REFERRAL No Information MEDICATIONS Medication SIG (Take, Route, Frequency, Duration) Notes Start Date End Date Status BMI Digital Smart Scale - as directed daily for 365 days Asset ta September, Active Calcitriol 0.25 Sun/Sun/Sun Ac tive Blood Pressure Cuff - as directed daily for 365 days Asset ta September, Active Loratadine 10 MG 1 tablet Orally Once a day for 30 day(s) Active Advair Diskus 250-50 MCG/DOSE 1 puff Inhalation Twice a day Active Albuterol Sulfate (2.5 MG/3ML) 0.083% INHALE THREE (3) ML EVERY 4-6 HOURS BY NEBULIZATION ROUTE DIRECTED for 30 Needs appointment. Active dilTIAZem HCl ER Coated Beads 300 MG TAKE ONE (1) CAPSULE BY MOUTH ONCE DAILY for 90 Needs appointment for more refills. Active Vitamin D (Ergocalciferol) 00419 UNIT 1 capsule Orally Active Atorvastatin Calcium 80 MG TAKE ONE (1) TABLET BY MOUTH ONCE DAILY IN THE EVENING for 90 Active Furosemide 40 MG TAKE ONE (1) TABLET BY MOUTH ONCE DAILY for 90 Active Allopurinol 100 MG TAKE ONE (1) TABLET BY MOUTH ONCE DAILY for 60 Active Raised Toilet Seat - as directed daily for 365 days September, Active Albuterol Sulfate HFA 108 (90 Base) MCG/ACT as directed by inhalation route every 4-6 hours as needed for 30 days Active clonazePAM 1 MG 1 tablet at bedtime Orally Once a day for 28 days DO NOT FILL UNTIL 04/29/2022 Mar, Active Coreg 6.25 MG 1 tablet with food Orally Twice a day for 30 day(s) Originally ordered by Electric Switch Tester - Dr. Millan in 2020. Apr, Active Fluticasone-Salmete rol 115-21 MCG/ACT 2 puffs Inhalation Twice a day need refill Active Oxygen 2L as directed inhale 3L-4 L at rest PM adirected Active REASON FOR VISIT requesting Antibiotic MEDICAL (GENERAL) HISTORY Type Description Date Medical History hypertension Medical History Kidney failure- sees Electric Switch Tester in [place]-stage 3 Medical History CHF Medical History COPD Surgical History cholecystectomy Surgical History cardiac stent 4-5 years ago Surgical History Ureteral Stent 4-5 years ago Surgical History colonoscopy-2008 Surgical History thoracentesis and ch est tube placed by Dr Alarcon at [facility] 01/14/2021 Hospitalization History surgical Hospitalization History pneumonia at the end of the yr not sure of date Hospitalization History [facility]-a/c resp martir lure, pneumothorax s/p chest tube, pleural effusion s/p thoracentesis, and a/c renal failure 01/12-01/21/2021 MENTAL STATUS No Information PLAN OF TREATMENT Next Appt Details Provider Name:VIKY CHEATHAM, 2 023-01- 10:40:00 AM, [address] [place] [address], [id number], [place], [address], Insurance Providers Payer Name Payer Address Payer Phone Insured Name Patient Relationship to Insured Coverage Start Date Coverage End Date Subscriber Number Group Number [facility] [address] [facility] [phone] Ivone Callejas Self - patient is the insured [id number] [employer] [address] [facility] [phone] Ivone Callejas Self - patient is the insured [id number] [facility] PART A FI [address] [facility] [address] Ivone Callejas Self - patient is the insured [id number] MEDICATIONS ADMINISTERED Medication Instructions Date of Administration Dosag e DEXAMETHASONE 4MG/ML (PER 1 ML) Jul, 020 1 mL DEPO MEDROL 80 MG/ML Jul, 1 mL
--- OUTSIDE RECORDS SUMMARY | 2023-02-01 13:16 | XMS REPORT ---
Author Author [facility] ter of [facility] ter of [facility] Address Unknown Phone Unavailable Care Team Providers Care Power Lineman Technician Name Role Phone DENISHA RAO Unavailable Salo Janet Unavailable Unavailable SVETLANA Page Unavailable Unavai lable PROBLEMS Type Condition ICD9-CM Code CLG69-DK Code Onset Dates Condition Status W/U Status Risk SNOMED Code Notes Problem Chronic kidney disease, stage 4 (severe) N18.4 confirmed 754010438 Problem Hypovitaminos is D E55.9 confirmed 66771953 Problem Chronic obstructive pulmonary disease, unspecified COPD type J44.9 confirmed 09642070 Problem Incisional hernia without mention of obstruction or gangrene K43.2 Nov, confirmed 812974038 59508 4_Migr ated Problem 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 confirmed 166310059 -35204 4_Migr ated Problem CKD (chronic kidney disease) stage 3, GFR 30-59 ml/min N18.3 Jan, confirmed 275645404 28021 4_Migr ated Problem Severe obesity (BMI 35.0-39.9) with comorbidity E66.01 Mar, confirmed 267991672 -65699 4_Migr ated Problem Dependence on supplemental oxygen Z99.81 confirmed 4925916205 07 Problem 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 confirmed 34693729 Problem Acute on chronic respiratory failure J96.20 confirmed 85294368 Problem Essential (primary) hypertension I10 confirmed 69221699 Problem Other iron deficiency anemias D50.8 confirmed 83476912 Problem Elevated fasting glucose R73.01 Jul, confirmed 902480629 -79454 4_Migr ated Problem Nocturnal hypoxia G47.34 07 Aug, 2016 confirmed 038480338 -34890 4_Migr ated Problem Essential hypertension I10 confirmed 99178862 Problem Sleep apnea G47.30 25 Dec, 2010 confirmed 53453622 -14292 4_Migr ated Problem Mixed hyperlipidemi a E78.2 confirmed 768941913 Problem Anxiety F41.9 confirmed 20058744 Problem Seasonal allergic rhinitis, unspecified trigger J30.2 confirmed 634827296 Problem Chronic gout of multiple sites, unspecified cause M1A.09X0 confirmed 95074558 Problem COPD exacerbation J44.1 confirmed 044371428 Problem Chronic bronchitis, unspecified chronic bronchitis type J42 confirmed 94808051 Problem Acute and chronic respiratory failure with hypoxia J96.21 confirmed 0401020203 6427706 Problem Oxygen dependent Z99.81 confirmed 9447189693 07 Problem Peripheral vascular disease I73.9 Jul, confirmed 362761282 -20279 4_Migr ated Problem Difficulty sleeping G47.9 confirmed 904933052 Problem Essential hypertension, benign I10 confirmed 0004577 64139 4_Migr ated Problem Tobacco use Z72.0 Jun, confirmed 108985374 -20811 4_Migr ated Problem Chronic obstructive pulmonary disease with (acute) exacerbation J44.1 confirmed 261221105 Problem Acute on chronic diastolic congestive heart failure I50.33 confirmed 780017444 Problem 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.0 confirmed 1277739309 9107 Problem Decreased breath sounds R06.89 confirmed 65761183 ALLERGIES No Known Allergies ENCOUNTERS from 1940 to 2022-12-19 Encounter Location Date Provider Diagnosis [facility] [address] [id number] [address] Dec, DENISHADONIS RAO Elevated fasting glu cose R73.01 ; CKD (chronic kidney disease) stage 3, GFR 30-59 ml/min N18.3 ; Essential hypertension, benign I10 ; Pure hypercholesterolemia E78.00 ; Confusion R41.0 and Unspecified abnormal findings in urine R82.90 IMMUNIZATIONS Vaccine Route Administration Date Status 1st Dose HRSA MODERNA, COVID -19, 0.5mL IM Intramuscular July 26, 2020 Administered 2nd Dose HRSA MODERNA, COVID -19, 0.5mL IM Intramuscular August 23, 2020 Administered PRIVATE PPSV23 (PNEUMOVAX) IM Intramuscular Dec 29 21 Administered PRIVATE TDAP (BOOSTRIX) IM Intramuscular Dec 29, 2020 Administered prevnar pcv 13 (history) Unknown Apr 07, 2016 Adm inistered influenza (history) Unknown Apr 07, 2016 Administ ered PRIVATE FLUZONE HIGH DOSE QU AD 0.7ML (65 and UP) 2020 Unknown Jul 18, 2021 Refused 1st Booster MODERNA COVID-19 , mRNA, 0.25mL Unknown Jul 18, 2021 Refused SOCIAL HISTORY Sex Assigned At : Social [...] Duration) Notes Start Date End Date Status Oxygen 2L as directed inhale 3L-4 L at rest PM adirected Active Acetaminophen 500 MG 1 tablet as needed Orally every 6 hrs Active Blood Pressure Cuff - as directed daily for 365 days Asset ta September, Active Advair Diskus 250-50 MCG/DOSE 1 puff Inhalation Twice a day Not-Taking Trelegy Ellipta 100-62.5-25 MCG/ACT 1 puff Inhalation Once a day Active Atorvastatin Calcium 80 MG TAKE ONE (1) TABLET BY MOUTH ONCE DAILY IN THE EVENING for 90 Active Cefdinir 300 MG as directed Orally started by [facility] 10 J 2022 Active Docusate Sodium 100 MG 1 capsule as needed Orally twice a day Active Calcitriol 0.25 Mon/Sun/Sun Ac tive Fluticasone-Salmete rol 115-21 MCG/ACT 2 puffs Inhalation Twice a day need refill Not-Taking Albuterol Sulfate HFA 108 (90 Base) MCG/ACT INHALE ONE (1) TO TWO (2) PUFFS BY MOUTH DIRECTED EVERY 4 TO 6 HOURS NEEDED for 16 Active Loratadine 10 MG 1 tablet Orally Once a day for 30 day(s) Not-Taking Allopurinol 100 MG TAKE ONE (1) TABLET BY MOUTH ONCE DAILY for 30 Active Furosemide 40 MG 1 tablet Orally Once a day for 90 days Active Albuterol Sulfate (2.5 MG/3ML) 0.083% INHALE THREE (3) ML EVERY 4-6 HOURS BY NEBULIZATION ROUTE DIRECTED for 30 Needs appointment. Active BMI Digital Smart Scale - as directed daily for 365 days Asset ta September, Active clonazePAM 1 MG 1 tablet at bedtime Orally Once a day for 28 days DO NOT FILL UNTIL 11/30/22 Oct, Active Vitamin D (Ergocalciferol) 30629 UNIT 1 capsule Orally Not-Taking Ferrous Sulfate 325 (65 Fe) MG 1 tablet Orally twice a day Active Raised Toilet Seat - as directed daily for 365 days September, Active Cetirizine HCl 10 MG 1 tablet Orally Once a day Active Coreg 6.25 MG 1 tablet with food Orally Twice a day for 30 day(s) Originally ordered by Dealer Development Manager - Dr. Millan in 2020. Apr, Active dilTIAZem HCl ER Coated Beads 300 MG TAKE ONE (1) CAPSULE BY MOUTH ONCE DAILY for 90 Active PredniSONE (Pj) started by [facility] Nov, Active PROCEDURES from 1940 to 2022-12-19 Procedure Date Ordered Date Performed Result Body Sit e ROUTINE VENIPUNCTURE 2021-01-10 2021-01-10 N/A REASON FOR VISIT No Information MEDICAL (GENERAL) HISTORY Type Description Date Medical History hypertension Medical History Kidney failure- sees Dealer Development Manager in [place]-stage 3 Medical History CHF Medical History COPD Surgical History cholecystectomy Surgical History cardiac stent 4-5 years ago Surgical History Ureteral Stent 4-5 years ago Surgical History colonoscopy-2008 Surgical History thoracentesis and ch est tube placed by Dr Alarcon at [facility] 01/14/2021 Hospitalization History surgical Hospitalization History pneumonia at the end of the yr not sure of date Hospitalization History [facility]-a/c resp martir lure, pneumothorax s/p chest tube, pleural effusion s/p thoracentesis, and a/c renal failure 01/12-01/21/2021 Hospitalization History [facility]-a/c chf, a/c resp failure with hypoxia, a/c renal failure, CAP, and pleural effusion 11/24-11/27/2022 MENTAL STATUS No Information ASSESSMENTS Encounter Date Diagnosis Assessment Notes Treatment Notes Treatment Clinical Notes Dec, Elevated fasting glu cose (ICD-10 - R73.01) Dec, CKD (chronic kidney disease) stage 3, GFR 30-59 ml/min (ICD-10 - N18.3) Dec, Essential hypertensi on, benign (ICD-10 - I10) Dec, Pure hypercholestero lemia (ICD-10 - E78.00) Dec, Confusion (ICD-10 - R41.0) Dec, Unspecified abnormal findings in urine (ICD-10 - R82.90) PLAN OF TREATMENT No Information Insurance Providers Payer Name Payer Address Payer Phone Insured Name Patient Relationship to Insured Coverage Start Date Coverage End Date Subscriber Number Group Number [facility] [address] [facility] [id number] Ivone Callejas Self - patient is the insured [id number] [facility] PART A FI [address] [facility] [phone] Ivone Callejas Self - patient is the insured [id number] [employer] [address] [facility] [phone] Ivone Callejas Self - patient is the insured [id number] MEDICATIONS ADMINISTERED Medication Instructions Date of Administration Dosag e DEPO MEDROL 80 MG/ML Jul, 1 mL DEXAMETHASONE 4MG/ML (PER 1 ML) Jul, 020 1 mL
--- OUTSIDE RECORDS SUMMARY | 2023-02-01 13:16 | XMS REPORT ---
Author Author [facility] ter of [facility] ter of [facility] Address Unknown Phone Unavailable Care Team Providers Care Director Of Teacher Education Name Role Phone VIKY CHEATHAM Unavailable Janet Leong Unavailable Unavailable SVETLANA Page Unavailable Unavai lable PROBLEMS Type Condition ICD9-CM Code RHJ23-YE Code Onset Dates Condition Status W/U Status Risk SNOMED Code Notes Problem Chronic kidney disease, stage 4 (severe) N18.4 confirmed 487653208 Problem Hypovitaminos is D E55.9 confirmed 13216063 Problem Chronic obstructive pulmonary disease, unspecified COPD type J44.9 confirmed 78480313 Problem Incisional hernia without mention of obstruction or gangrene K43.2 Nov, confirmed 638220601 75117 4_Migr ated Problem 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 confirmed 837598859 -45093 4_Migr ated Problem CKD (chronic kidney disease) stage 3, GFR 30-59 ml/min N18.3 Jan, confirmed 594296809 31062 4_Migr ated Problem Severe obesity (BMI 35.0-39.9) with comorbidity E66.01 Mar, confirmed 244671239 -96475 4_Migr ated Problem Dependence on supplemental oxygen Z99.81 confirmed 6624473844 07 Problem 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 confirmed 23884806 Problem Acute on chronic respiratory failure J96.20 confirmed 90487178 Problem Essential (primary) hypertension I10 confirmed 11068503 Problem Other iron deficiency anemias D50.8 confirmed 85579188 Problem Elevated fasting glucose R73.01 Jul, confirmed 735820550 -65632 4_Migr ated Problem Nocturnal hypoxia G47.34 07 Aug, 2016 confirmed 426335620 -27209 4_Migr ated Problem Essential hypertension I10 confirmed 26796167 Problem Sleep apnea G47.30 25 Dec, 2010 confirmed 36416268 -60949 4_Migr ated Problem Mixed hyperlipidemi a E78.2 confirmed 146225302 Problem Anxiety F41.9 confirmed 43823661 Problem Seasonal allergic rhinitis, unspecified trigger J30.2 confirmed 950799843 Problem Chronic gout of multiple sites, unspecified cause M1A.09X0 confirmed 26532356 Problem COPD exacerbation J44.1 confirmed 239089732 Problem Chronic bronchitis, unspecified chronic bronchitis type J42 confirmed 24943511 Problem Acute and chronic respiratory failure with hypoxia J96.21 confirmed 9848553445 4981134 Problem Oxygen dependent Z99.81 confirmed 5311943318 07 Problem Peripheral vascular disease I73.9 Jul, confirmed 218444107 -04762 4_Migr ated Problem Difficulty sleeping G47.9 confirmed 125771722 Problem Essential hypertension, benign I10 confirmed 7223114 82341 4_Migr ated Problem Tobacco use Z72.0 19 Jun, 2015 confirmed 330044571 -39885 4_Migr ated Problem Chronic obstructive pulmonary disease with (acute) exacerbation J44.1 confirmed 158088163 Problem Acute on chronic diastolic congestive heart failure I50.33 confirmed 528532198 Problem 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.0 confirmed 2099757923 9107 Problem Decreased breath sounds R06.89 confirmed 00003020 ALLERGIES No Known Allergies ENCOUNTERS from 1940 to 2023-01-07 Encounter Location Date Provider Diagnosis [facility] [address] [id number] [place] [address] 07 Jan, 2021 VIKY CHEATHAM IMMUNIZATIONS Vaccine Route Administration Date Status 1st Booster MODERNA COVID-19 , mRNA, 0.25mL Unknown Jul 18, 2021 Refused PRIVATE FLUZONE HIGH DOSE QU AD 0.7ML (65 and UP) 2020 Unknown Jul 18, 2021 Refused 2nd Dose HRSA MODERNA, COVID -19, 0.5mL IM Intramuscular August 23, 2020 Administered 1st Dose HRSA MODERNA, COVID -19, 0.5mL IM Intramuscular July 26, 2020 Administered influenza (history) Unknown Apr 07, 2016 Administ william prevnar pcv 13 (history) Unknown Apr 07, 2016 Adm inistered PRIVATE TDAP (BOOSTRIX) IM Intramuscular Dec 29, 2020 Administered PRIVATE PPSV23 (PNEUMOVAX) IM Intramuscular Dec 29 Administered SOCIAL HISTORY Sex Assigned At : [...] Duration) Notes Start Date End Date Status Blood Pressure Cuff - as directed daily for 365 days Asset ta September, Active Acetaminophen 500 MG 1 tablet as needed Orally every 6 hrs Active PredniSONE (Pj) started by [facility] Nov, Active Advair Diskus 250-50 MCG/DOSE 1 puff Inhalation Twice a day Not-Taking Cefdinir 300 MG as directed Orally started by [facility] 2022 Active Atorvastatin Calcium 80 MG TAKE ONE (1) TABLET BY MOUTH ONCE DAILY IN THE EVENING for 90 Active Oxygen 2L as directed inhale 3L-4 L at rest PM adirected Active Albuterol Sulfate HFA 108 (90 Base) MCG/ACT INHALE ONE (1) TO TWO (2) PUFFS BY MOUTH DIRECTED EVERY 4 TO 6 HOURS NEEDED for 16 Active Trelegy Ellipta 100-62.5-25 MCG/ACT 1 puff Inhalation Once a day Active Loratadine 10 MG 1 tablet Orally Once a day for 30 day(s) Not-Taking Fluticasone-Salmete rol 115-21 MCG/ACT 2 puffs Inhalation Twice a day need refill Not-Taking Coreg 6.25 MG 1 tablet with food Orally Twice a day for 30 day(s) Originally ordered by Director Of Intercollegiate Athletics - Dr. Millan in 2020. Apr, Active Allopurinol 100 MG TAKE ONE (1) TABLET BY MOUTH ONCE DAILY for 30 Active Furosemide 40 MG 1 tablet Orally Once a day for 90 days Active Docusate Sodium 100 MG 1 capsule as needed Orally twice a day Active dilTIAZem HCl ER Coated Beads 300 MG TAKE ONE (1) CAPSULE BY MOUTH ONCE DAILY for 90 Active Raised Toilet Seat - as directed daily for 365 days September, Active Vitamin D (Ergocalciferol) 73420 UNIT 1 capsule Orally Not-Taking Ferrous Sulfate 325 (65 Fe) MG 1 tablet Orally twice a day Active Calcitriol 0.25 Sun/Sun/Sun Ac tive Cetirizine HCl 10 MG 1 tablet Orally Once a day Active clonazePAM 1 MG 1 tablet at bedtime Orally Once a day for 28 days DO NOT FILL UNTIL 01/01/23 Dec, Active Albuterol Sulfate (2.5 MG/3ML) 0.083% INHALE THREE (3) ML EVERY 4-6 HOURS BY NEBULIZATION ROUTE DIRECTED for 30 Needs appointment. Active BMI Digital Smart Scale - as directed daily for 365 days Asset ta September, Active REASON FOR VISIT IPT and hosp. follow up MEDICAL (GENERAL) HISTORY Type Description Date Medical History hypertension Medical History Kidney failure- sees Director Of Intercollegiate Athletics in [place]-stage 3 Medical History CHF Medical History COPD Surgical History cholecystectomy Surgical History cardiac stent 4-5 years ago Surgical History Ureteral Stent 4-5 years ago Surgical History colonoscopy-2008 Surgical History thoracentesis and ch est tube placed by Dr Alarcon at [facility] 01/14/2021 Hospitalization History surgical Hospitalization History pneumonia at the end of the yr not sure of date Hospitalization History [facility]-a/c resp martir lure, pneumothorax s/p chest tube, pleural effusion s/p thoracentesis, and a/c renal failure 01/12-01/21/2021 Hospitalization History [facility]-a/c chf, a/c resp failure with hypoxia, a/c renal failure, CAP, and pleural effusion 11/24-11/27/2022 MENTAL STATUS No Information PLAN OF TREATMENT Medication Medication Name Sig Start Date Stop Date dilTIAZem HCl ER Coated Bead s 300 MG TAKE ONE (1) CAPSULE BY MOUTH ONCE DAILY for 90 clonazePAM 1 MG 1 tablet at bedtime Orally Once a day for 28 days Dec, Insurance Providers Payer Name Payer Address Payer Phone Insured Name Patient Relationship to Insured Coverage Start Date Coverage End Date Subscriber Number Group Number [employer] [address] [place] [phone] Ivone Callejas Self - patient is the insured [id number] [place] [address] [address] [facility] [phone] Ivone Callejas Self - patient is the insured [id number] [facility] PART A [address] [facility] [phone] Ivone Callejas Self - patient is the insured [id number] MEDICATIONS ADMINISTERED Medication Instructions Date of Administration Dosag e DEXAMETHASONE 4MG/ML (PER 1 ML) Jul, 020 1 mL DEPO MEDROL 80 MG/ML Jul, 1 mL
--- OUTSIDE RECORDS SUMMARY | 2023-02-01 13:16 | XMS REPORT ---
Author Author Formerly [facility] ter of [facility] ter of [facility] Address Unknown Phone Unavailable Care Team Providers Care Mortgage Loan Processing Clerk Name Role Phone DENISHA RAO Unavailable Salo Janet Unavailable Unavailable SVETLANA Page Unavailable Unavai lable PROBLEMS Type Condition ICD9-CM Code XML21-AC Code Onset Dates Condition Status W/U Status Risk SNOMED Code Notes Problem Chronic kidney disease, stage 4 (severe) N18.4 confirmed 850476025 Problem Hypovitaminos is D E55.9 confirmed 56229652 Problem Chronic obstructive pulmonary disease, unspecified COPD type J44.9 confirmed 47555984 Problem Incisional hernia without mention of obstruction or gangrene K43.2 Nov, confirmed 051655543 -30528 4_Migr ated Problem 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 confirmed 244688531 -88226 4_Migr ated Problem CKD (chronic kidney disease) stage 3, GFR 30-59 ml/min N18.3 Jan, confirmed -66442 4_Migr ated Problem Severe obesity (BMI 35.0-39.9) with comorbidity E66.01 Mar, confirmed 101620728 -34741 4_Migr ated Problem Dependence on supplemental oxygen Z99.81 confirmed Problem 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 confirmed 02816706 Problem Acute on chronic respiratory failure J96.20 confirmed Problem Essential (primary) hypertension I10 confirmed 26697413 Problem Other iron deficiency anemias D50.8 confirmed 41941713 Problem Elevated fasting glucose R73.01 Jul, confirmed 242015430 -84472 4_Migr ated Problem Nocturnal hypoxia G47.34 07 Aug, 2016 confirmed -64109 4_Migr ated Problem Essential hypertension I10 confirmed 83738620 Problem Sleep apnea G47.30 25 Dec, 2010 confirmed 38827651 -31440 4_Migr ated Problem Mixed hyperlipidemi a E78.2 confirmed 677435929 Problem Anxiety F41.9 confirmed 12316281 Problem Seasonal allergic rhinitis, unspecified trigger J30.2 confirmed 698929187 Problem Chronic gout of multiple sites, unspecified cause M1A.09X0 confirmed 38549233 Problem COPD exacerbation J44.1 confirmed 827764231 Problem Chronic bronchitis, unspecified chronic bronchitis type J42 confirmed 73593035 Problem Acute and chronic respiratory failure with hypoxia J96.21 confirmed Problem Oxygen dependent Z99.81 confirmed 3550938477 07 Problem Peripheral vascular disease I73.9 Jul, confirmed 672735601 -65467 4_Migr ated Problem Difficulty sleeping G47.9 confirmed 010737376 Problem Essential hypertension, benign I10 confirmed -74832 4_Migr ated Problem Tobacco use Z72.0 19 Jun, 2015 confirmed 697406786 07325 4_Migr ated Problem Chronic obstructive pulmonary disease with (acute) exacerbation J44.1 confirmed Problem Acute on chronic diastolic congestive heart failure I50.33 confirmed Problem 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.0 confirmed 2419381166 9107 Problem Decreased breath sounds R06.89 confirmed [id number] ALLERGIES No Known Allergies ENCOUNTERS from 1940 to 2022-12-10 Encounter Location Date Provider Diagnosis [facility] [id number] [address] Dec, DENISHA RAO IMMUNIZATIONS Vaccine Route Administration Date Status 1st [...] (history) Unknown Apr 07, 2016 Administ william haddad pcv 13 (history) Unknown Apr 07, 2016 [...] 300 MG as directed Orally started by [facility] 10 J 2022 Active Docusate Sodium 100 MG 1 capsule as needed Orally twice a day Active Calcitriol 0.25 Mon/Wed/Fri Ac tive Fluticasone-Salmete rol 115-21 MCG/ACT 2 [...] UNTIL 11/30/22 Oct, Active Vitamin D (Ergocalciferol) 32044 UNIT 1 capsule Orally Not-Taking Ferrous Sulfate 325 (65 Fe) MG 1 tablet Orally twice a day Active Raised Toilet Seat - as directed daily for 365 days September, Active Cetirizine HCl 10 MG 1 tablet Orally Once a day Active Coreg 6.25 MG 1 tablet with food Orally Twice a day for 30 day(s) Originally ordered by Airline Attendant - Dr. Millan in 2020. Apr, Active dilTIAZem HCl ER Coated Beads 300 MG TAKE ONE (1) CAPSULE BY MOUTH ONCE DAILY for 90 Active PredniSONE (Pj) started by [facility] Nov, Active REASON FOR VISIT Notes and stats needed MEDICAL (GENERAL) HISTORY Type Description Date Medical History hypertension Medical History Kidney failure- sees Airline Attendant in [place]-stage 3 Medical History CHF Medical History COPD Surgical History cholecystectomy Surgical History cardiac stent 4-5 years ago Surgical History Ureteral Stent 4-5 years ago Surgical History colonoscopy-2008 Surgical History thoracentesis and ch est tube placed by Dr Alarcon at [facility] 01/14/2021 Hospitalization History surgical Hospitalization History pneumonia at the end of the yr not sure of date Hospitalization History [facility]-a/c resp martir lure, pneumothorax s/p chest tube, pleural effusion s/p thoracentesis, and a/c renal failure 01/12-01/21/2021 Hospitalization History [facility]-a/c chf, a/c resp failure with hypoxia, a/c renal failure, CAP, and pleural effusion 11/24-11/27/2022 MENTAL STATUS No Information PLAN OF TREATMENT No Information Insurance Providers Payer Name Payer Address Payer Phone Insured Name Patient Relationship to Insured Coverage Start Date Coverage End Date Subscriber Number Group Number [employer] PART A FI [address] [facility] [id number] Ivone Callejas Self - patient is the insured [id number] [facility] [address] [place] [address] Ivone Callejas Self - patient is the insured [id number] [place] [address] [address] [facility] [id number] Ivone Callejas Self - patient is the insured [id number] MEDICATIONS ADMINISTERED Medication Instructions Date of Administration Dosag e DEXAMETHASONE 4MG/ML (PER 1 ML) Jul, 020 1 mL DEPO MEDROL 80 MG/ML Jul, 1 mL
--- OUTSIDE RECORDS SUMMARY | 2023-02-01 13:16 | XMS REPORT ---
Author Author [facility] ter of [facility] ter of [facility] Address Unknown Phone Unavailable Care Team Providers Care Criminal Records Technician Name Role Phone DENISHA RAO Unavailable Salo Janet Unavailable Unavailable MARTELL PageMAN Unavailable Unavai lable PROBLEMS Type Condition ICD9-CM Code YPL05-ZV Code Onset Dates Condition Status W/U Status Risk SNOMED Code Notes Problem Essential (primary) hypertension I10 confirmed 14230231 Problem Chronic obstructive pulmonary disease, unspecified COPD type J44.9 confirmed 96994138 Problem Chronic kidney disease, stage 4 (severe) N18.4 confirmed 359120446 Problem 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 confirmed 028751968 -2776457 4_Migr ated Problem Hypovitaminos is D E55.9 confirmed 44729350 Problem Severe obesity (BMI 35.0-39.9) with comorbidity E66.01 Mar, confirmed 473628862 -70683 4_Migr ated Problem Incisional hernia without mention of obstruction or gangrene K43.2 Nov, confirmed 867495109 -17193 4_Migr ated Problem Acute on chronic respiratory failure J96.20 confirmed 48992858 Problem Seasonal allergic rhinitis, unspecified trigger J30.2 confirmed 730317861 Problem Other iron deficiency anemias D50.8 confirmed 18715187 Problem 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 confirmed 01904031 Problem Nocturnal hypoxia G47.34 Aug, confirmed 031049255 -54512 4_Migr ated Problem CKD (chronic kidney disease) stage 3, GFR 30-59 ml/min N18.3 06 Jan, 2017 confirmed 395075527 -70246 4_Migr ated Problem Sleep apnea G47.30 Dec, confirmed 25291735 -95619 4_Migr ated Problem Elevated fasting glucose R73.01 Jul, confirmed 095059220 -79790 4_Migr ated Problem Anxiety F41.9 confirmed 87072894 Problem Essential hypertension I10 confirmed 61742135 Problem Mixed hyperlipidemi a E78.2 confirmed 742553476 Problem Chronic gout of multiple sites, unspecified cause M1A.09X0 confirmed 51391344 Problem Dependence on supplemental oxygen Z99.81 confirmed 7603477422 07 Problem COPD exacerbation J44.1 confirmed 018901957 Problem Chronic bronchitis, unspecified chronic bronchitis type J42 confirmed 43529189 Problem Decreased breath sounds R06.89 confirmed 71385503 Problem Tobacco use Z72.0 Jun, confirmed 047880531 -81160 4_Migr ated Problem Oxygen dependent Z99.81 confirmed 7793338064 07 Problem Peripheral vascular disease I73.9 Jul, confirmed 622888427 -68705 4_Migr ated Problem Essential hypertension, benign I10 confirmed 1616557 -57077 4_Migr ated Problem Acute and chronic respiratory failure with hypoxia J96.21 confirmed 1237623914 8763748 Problem Chronic obstructive pulmonary disease with (acute) exacerbation J44.1 confirmed 570565480 Problem 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.0 confirmed 5663469376 9107 Problem Acute on chronic diastolic congestive heart failure I50.33 confirmed [id number] ALLERGIES No Known Allergies ENCOUNTERS from 1940 to 2022-10-30 Encounter Location Date Provider Diagnosis [facility] [address] [id number] [place] [address] Nov, DENISHA RAO Anxiety F41.9 IMMUNIZATIONS Vaccine Route Administration Date Status 1st [...] Duration) Notes Start Date End Date Status Albuterol Sulfate HFA 108 (90 Base) MCG/ACT INHALE ONE (1) TO TWO (2) PUFFS BY MOUTH DIRECTED EVERY 4 TO 6 HOURS NEEDED for 16 Active Albuterol Sulfate (2.5 MG/3ML) 0.083% INHALE THREE (3) ML EVERY 4-6 HOURS BY NEBULIZATION ROUTE DIRECTED for 30 Needs appointment. Active Loratadine 10 MG 1 tablet Orally Once a day for 30 day(s) Active dilTIAZem HCl ER Coated Beads 300 MG TAKE ONE (1) CAPSULE BY MOUTH ONCE DAILY for 90 Active Coreg 6.25 MG 1 tablet with food Orally Twice a day for 30 day(s) Originally ordered by [facility] Coordinator - Dr. Millan in 2020. Apr, Active Calcitriol 0.25 Mon/Wed/Fri Ac tive Raised Toilet Seat - as directed daily for 365 days September, Active Oxygen 2L as directed inhale 3L-4 L at rest PM adirected Active clonazePAM 1 MG 1 tablet at bedtime Orally Once a day for 28 days September, Active Blood Pressure Cuff - as directed daily for 365 days Asset ta September, Active Furosemide 40 MG 1 tablet Orally Once a day for 90 days Active Advair Diskus 250-50 MCG/DOSE 1 puff Inhalation Twice a day Active Atorvastatin Calcium 80 MG TAKE ONE (1) TABLET BY MOUTH ONCE DAILY IN THE EVENING for 90 Active Vitamin D (Ergocalciferol) 06541 UNIT 1 capsule Orally Active BMI Digital Smart Scale - as directed daily for 365 days Asset ta September, Active Allopurinol 100 MG TAKE ONE (1) TABLET BY MOUTH ONCE DAILY for 60 Active Fluticasone-Salmete rol 115-21 MCG/ACT 2 puffs Inhalation Twice a day need refill Active REASON FOR VISIT Controlled Med Refill MEDICAL (GENERAL) HISTORY Type Description Date Medical History hypertension Medical History Kidney failure- sees [facility] [employer] Coordinator in [place]-stage 3 Medical History CHF Medical History COPD Surgical History cholecystectomy Surgical History cardiac stent 4-5 years ago Surgical History Ureteral Stent 4-5 years ago Surgical History colonoscopy-2008 Surgical History thoracentesis and ch est tube placed by Dr Alarcon at [facility] 01/14/2021 Hospitalization History surgical Hospitalization History pneumonia at the end of the yr not sure of date Hospitalization History [facility]-a/c resp martir lure, pneumothorax s/p chest tube, pleural effusion s/p thoracentesis, and a/c renal failure 01/12-01/21/2021 MENTAL STATUS No Information ASSESSMENTS Encounter Date Diagnosis Assessment Notes Treatment Notes Treatment Clinical Notes Nov, Anxiety (ICD-10 - F41.9) PLAN OF TREATMENT Medication Medication Name Sig Start Date Stop Date clonazePAM 1 MG 1 tablet at bedtime Orally Once a day for 28 days September, Furosemide 40 MG 1 tablet Orally Once a day for 90 days dilTIAZem HCl ER Coated Bead s 300 MG TAKE ONE (1) CAPSULE BY MOUTH ONCE DAILY for 90 Insurance Providers Payer Name Payer Address Payer Phone Insured Name Patient Relationship to Insured Coverage Start Date Coverage End Date Subscriber Number Group Number [facility] 19 [address] [facility] [phone] Ivone Callejas Self - patient is the insured [id number] [employer] [address] [facility] [phone] Ivone Callejas Self - patient is the insured [id number] [facility] PART A [address] [facility] [address] Ivone Callejas Self - patient is the insured [id number] MEDICATIONS ADMINISTERED Medication Instructions Date of Administration Dosag e DEXAMETHASONE 4MG/ML (PER 1 ML) Jul, 020 1 mL DEPO MEDROL 80 MG/ML Jul, 1 mL
--- OUTSIDE RECORDS SUMMARY | 2023-02-01 13:16 | XMS REPORT ---
Author Author [facility] ter of [facility] ter of [facility] Address Unknown Phone Unavailable Care Team Providers Care Railroad Firer/Fireman Name Role Phone DENISHA RAO Unavailable Salo Janet Unavailable Unavailable MARTELL PageMAN Unavailable Unavai lable PROBLEMS Type Condition ICD9-CM Code HFG17-BK Code Onset Dates Condition Status W/U Status Risk SNOMED Code Notes Problem Essential (primary) hypertension I10 confirmed 87382267 Problem Chronic obstructive pulmonary disease, unspecified COPD type J44.9 confirmed 48972441 Problem Chronic kidney disease, stage 4 (severe) N18.4 confirmed 901296536 Problem 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 confirmed 519354524 -5534307 4_Migr ated Problem Hypovitaminos is D E55.9 confirmed 23304681 Problem Severe obesity (BMI 35.0-39.9) with comorbidity E66.01 Mar, confirmed 609381598 -13315 4_Migr ated Problem Incisional hernia without mention of obstruction or gangrene K43.2 Nov, confirmed 950923256 -13908 4_Migr ated Problem Acute on chronic respiratory failure J96.20 confirmed 39756921 Problem Seasonal allergic rhinitis, unspecified trigger J30.2 confirmed 501711674 Problem Other iron deficiency anemias D50.8 confirmed 02411840 Problem 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 confirmed 28787360 Problem Nocturnal hypoxia G47.34 Aug, confirmed 005006518 -66801 4_Migr ated Problem CKD (chronic kidney disease) stage 3, GFR 30-59 ml/min N18.3 06 Jan, 2017 confirmed 135154779 -83417 4_Migr ated Problem Sleep apnea G47.30 Dec, confirmed 54471462 -05904 4_Migr ated Problem Elevated fasting glucose R73.01 Jul, confirmed 014989203 -77973 4_Migr ated Problem Anxiety F41.9 confirmed 16885930 Problem Essential hypertension I10 confirmed 96426549 Problem Mixed hyperlipidemi a E78.2 confirmed 813068444 Problem Chronic gout of multiple sites, unspecified cause M1A.09X0 confirmed 97172775 Problem Dependence on supplemental oxygen Z99.81 confirmed 0788581080 07 Problem COPD exacerbation J44.1 confirmed 374960721 Problem Chronic bronchitis, unspecified chronic bronchitis type J42 confirmed 30557671 Problem Decreased breath sounds R06.89 confirmed 57470003 Problem Tobacco use Z72.0 Jun, confirmed 069069314 -38238 4_Migr ated Problem Oxygen dependent Z99.81 confirmed 7575151326 07 Problem Peripheral vascular disease I73.9 Jul, confirmed 199837996 -85776 4_Migr ated Problem Essential hypertension, benign I10 confirmed 4949485 -84501 4_Migr ated Problem Acute and chronic respiratory failure with hypoxia J96.21 confirmed 2931033850 9178091 Problem Chronic obstructive pulmonary disease with (acute) exacerbation J44.1 confirmed 006325247 Problem 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.0 confirmed 6866327740 9107 Problem Acute on chronic diastolic congestive heart failure I50.33 confirmed 457987041 ALLERGIES No Known Allergies ENCOUNTERS from 1940 to 2022-06-10 Encounter Location Date Provider Diagnosis [facility] [address] [id number] [place] [address] Jun, DENISHA RAO Anxiety F41.9 IMMUNIZATIONS Vaccine Route Administration Date Status 1st Dose HRSA MODERNA, COVID -19, 0.5mL IM Intramuscular July 26, 2020 Administered 2nd Dose HRSA MODERNA, COVID -19, 0.5mL IM Intramuscular August 23, 2020 Administered PRIVATE PPSV23 (PNEUMOVAX) IM Intramuscular Dec 29 Administered PRIVATE TDAP (BOOSTRIX) IM Intramuscular Dec 29, 2020 Administered prevnar pcv 13 (history) Unknown Apr 07, 2016 Adm inistered influenza (history) Unknown Apr 07, 2016 Administ erekareen PRIVATE FLUZONE HIGH DOSE QU AD 0.7ML [...] Duration) Notes Start Date End Date Status Coreg 6.25 MG 1 tablet with food Orally Twice a day for 30 day(s) Originally ordered by Barber - Dr. Millan in 2020. Apr, Active Calcitriol 0.25 Mon/Sun/Sun Ac tive Albuterol Sulfate (2.5 MG/3ML) 0.083% INHALE THREE (3) ML EVERY 4-6 HOURS BY NEBULIZATION ROUTE DIRECTED for 30 Needs appointment. Active dilTIAZem HCl ER Coated Beads 300 MG TAKE ONE (1) CAPSULE BY MOUTH ONCE DAILY for 90 Needs appointment for more refills. Active Atorvastatin Calcium 80 MG TAKE ONE (1) TABLET BY MOUTH ONCE DAILY IN THE EVENING for 90 Active Vitamin D (Ergocalciferol) 10417 UNIT 1 capsule Orally Active BMI Digital Smart Scale - as directed daily for 365 days Asset ta September, Active Blood Pressure Cuff - as directed daily for 365 days Asset ta September, Active Albuterol Sulfate HFA 108 (90 Base) MCG/ACT as directed by inhalation route every 4-6 hours as needed for 30 days Active Furosemide 40 MG TAKE ONE (1) TABLET BY MOUTH ONCE DAILY for 90 Active clonazePAM 1 MG 1 tablet at bedtime Orally Once a day for 28 days May, Active Allopurinol 100 MG TAKE ONE (1) TABLET BY MOUTH ONCE DAILY for 60 Active Fluticasone-Salmete rol 115-21 MCG/ACT 2 puffs Inhalation Twice a day need refill Active Loratadine 10 MG 1 tablet Orally Once a day for 30 day(s) Active Raised Toilet Seat - as directed daily for 365 days September, Active Advair Diskus 250-50 MCG/DOSE 1 puff Inhalation Twice a day Active Oxygen 2L as directed inhale 3L-4 L at rest PM adirected Active REASON FOR VISIT Controlled Med Refill 07/12 MEDICAL (GENERAL) HISTORY Type Description Date Medical History hypertension Medical History Kidney failure- sees Barber in [place]-stage 3 Medical History CHF Medical History COPD Surgical History cholecystectomy Surgical History cardiac stent 4-5 years ago Surgical History Ureteral Stent 4-5 years ago Surgical History colonoscopy-2008 Surgical History thoracentesis and ch est tube placed by Dr Alarcon at [facility] 01/14/2021 Hospitalization History surgical Hospitalization History pneumonia at the end of the yr not sure of date Hospitalization History [facility]-a/c resp martir lure, pneumothorax s/p chest tube, pleural effusion s/p thoracentesis, and a/c renal failure 01/12-01/21/2021 MENTAL STATUS No Information ASSESSMENTS Encounter Date Diagnosis Assessment Notes Treatment Notes Treatment Clinical Notes Jun, Anxiety (ICD-10 - F41.9) PLAN OF TREATMENT Medication Medication Name Sig Start Date Stop Date clonazePAM 1 MG 1 tablet at bedtime Orally Once a day for 28 days May, Insurance Providers Payer Name Payer Address Payer Phone Insured Name Patient Relationship to Insured Coverage Start Date Coverage End Date Subscriber Number Group Number [employer] [address] [facility] [phone] Ivone Callejas Self - patient is the insured [id number] [facility] PART A FI [address] [facility] [phone] Ivone Callejas Self - patient is the insured [id number] [facility] 19 [address] [facility] [phone] Ivone Callejas Self - patient is the insured [id number] MEDICATIONS ADMINISTERED Medication Instructions Date of Administration Dosag e DEPO MEDROL 80 MG/ML Jul, 1 mL DEXAMETHASONE 4MG/ML (PER 1 ML) Jul, 1 mL
--- OUTSIDE RECORDS SUMMARY | 2023-02-01 13:16 | XMS REPORT ---
Author Author [facility] ter of [facility] ter of [facility] Address Unknown Phone Unavailable Care Team Providers Care Screen Roller Name Role Phone VIKY CHEATHAM Unavailable Janet Leong Unavailable Unavailable SVETLANA Page Unavailable Unavai lable PROBLEMS Type Condition ICD9-CM Code WNB10-ME Code Onset Dates Condition Status W/U Status Risk SNOMED Code Notes Problem Chronic kidney disease, stage 4 (severe) N18.4 confirmed 183894041 Problem Hypovitaminos is D E55.9 confirmed 63869635 Problem Chronic obstructive pulmonary disease, unspecified COPD type J44.9 confirmed 39509247 Problem Incisional hernia without mention of obstruction or gangrene K43.2 Nov, confirmed 159778970 33894 4_Migr ated Problem 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 confirmed 207615859 -07764 4_Migr ated Problem CKD (chronic kidney disease) stage 3, GFR 30-59 ml/min N18.3 Jan, confirmed 939869984 66304 4_Migr ated Problem Severe obesity (BMI 35.0-39.9) with comorbidity E66.01 Mar, confirmed 065095224 -29964 4_Migr ated Problem Dependence on supplemental oxygen Z99.81 confirmed 0120778838 07 Problem 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 confirmed 11634528 Problem Acute on chronic respiratory failure J96.20 confirmed 01816736 Problem Essential (primary) hypertension I10 confirmed 35529051 Problem Other iron deficiency anemias D50.8 confirmed 39359462 Problem Elevated fasting glucose R73.01 Jul, confirmed 035659468 -32258 4_Migr ated Problem Nocturnal hypoxia G47.34 07 Aug, 2016 confirmed 314903980 -57472 4_Migr ated Problem Essential hypertension I10 confirmed 32898836 Problem Sleep apnea G47.30 25 Dec, 2010 confirmed 59187921 -91541 4_Migr ated Problem Mixed hyperlipidemi a E78.2 confirmed 881117473 Problem Anxiety F41.9 confirmed 86110982 Problem Seasonal allergic rhinitis, unspecified trigger J30.2 confirmed 392631247 Problem Chronic gout of multiple sites, unspecified cause M1A.09X0 confirmed 41534137 Problem COPD exacerbation J44.1 confirmed 479231183 Problem Chronic bronchitis, unspecified chronic bronchitis type J42 confirmed 63124591 Problem Acute and chronic respiratory failure with hypoxia J96.21 confirmed 9053537122 6708667 Problem Oxygen dependent Z99.81 confirmed 7279680956 07 Problem Peripheral vascular disease I73.9 Jul, confirmed 358895590 -00197 4_Migr ated Problem Difficulty sleeping G47.9 confirmed 007024004 Problem Essential hypertension, benign I10 confirmed 1771234 32015 4_Migr ated Problem Tobacco use Z72.0 Jun, confirmed 951387797 -07031 4_Migr ated Problem Chronic obstructive pulmonary disease with (acute) exacerbation J44.1 confirmed 577084781 Problem Acute on chronic diastolic congestive heart failure I50.33 confirmed 469201511 Problem 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.0 confirmed 2703606298 9107 Problem Decreased breath sounds R06.89 confirmed 24810041 ALLERGIES No Known Allergies ENCOUNTERS from 1940 to 2023-01-07 Encounter Location Date Provider Diagnosis [facility] [address] [id number] [address] 08 Jan, 2021 VIKY CHEATHAM Chronic kidney disea se, stage 4 (severe) N18.4 ; Bilateral lower extremity edema R60.0 ; Essential (primary) hypertension I10 and Other hyperparathyroidism E21.2 IMMUNIZATIONS Vaccine Route Administration Date Status 1st [...] (history) Unknown Apr 07, 2016 Administ ered prevnar pcv 13 (history) Unknown Apr 07, [...] 6 hrs Active PredniSONE (Pj) started by [facility] Nov, Active Advair Diskus 250-50 MCG/DOSE 1 puff Inhalation Twice a day Not-Taking Cefdinir 300 MG as directed Orally started by [facility] 2022 Active Atorvastatin Calcium 80 MG TAKE [...] day for 30 day(s) Originally ordered by Valve Repairer - Dr. Millan in 2020. Apr, Active [...] 365 days September, Active Vitamin D (Ergocalciferol) 73964 UNIT 1 capsule Orally Not-Taking Ferrous Sulfate [...] for 365 days Asset ta September, Active PROCEDURES from 1940 to 2023-01-07 Procedure Date Ordered Date Performed Result Body Sit e ROUTINE VENIPUNCTURE 2021-01-26 2021-01-26 N/A REASON FOR VISIT outside order in hand MEDICAL (GENERAL) HISTORY Type Description Date Medical History hypertension Medical History Kidney failure- sees Valve Repairer in [place]-stage 3 Medical History CHF Medical History COPD Surgical History cholecystectomy Surgical History cardiac stent 4-5 years ago Surgical History Ureteral Stent 4-5 years ago Surgical History colonoscopy-2008 Surgical History thoracentesis and ch est tube placed by Dr Alarcon at [facility] 01/14/2021 Hospitalization History surgical Hospitalization History pneumonia at the end of the yr not sure of date Hospitalization History [facility]-a/c resp martir lure, pneumothorax s/p chest tube, pleural effusion s/p thoracentesis, and a/c renal failure 01/12-01/21/2021 Hospitalization History [facility]-a/c chf, a/c resp failure with hypoxia, a/c renal failure, CAP, and pleural effusion 11/24-11/27/2022 MENTAL STATUS No Information ASSESSMENTS Encounter Date Diagnosis Assessment Notes Treatment Notes Treatment Clinical Notes Jan, Chronic kidney disea se, stage 4 (severe) (ICD-10 - N18.4) Jan, Bilateral lower extr emity edema (ICD-10 - R60.0) Jan, Essential (primary) hypertension (ICD-10 - I10) Jan, Other hyperparathyro idism (ICD-10 - E21.2) PLAN OF TREATMENT Medication Medication Name Sig [...] Coverage End Date Subscriber Number Group Number [employer] [address] [facility] [phone] Ivone Callejas Self - patient is the insured [id number] [facility] [address] [facility] [id number] Ivone Callejas Self - patient is the insured [id number] [facility] PART A [address] [facility] [phone] Ivone Callejas Self - patient is the insured [id number] MEDICATIONS ADMINISTERED Medication Instructions Date of Administration Dosag e DEXAMETHASONE 4MG/ML (PER 1 ML) Jul, 020 1 mL DEPO MEDROL 80 MG/ML Jul, 1 mL
--- OUTSIDE RECORDS SUMMARY | 2023-02-01 13:16 | XMS REPORT ---
Author Author [facility] ter [facility] Address Unknown Phone Unavailable Care Team Providers Care Redevelopment Manager Name Role Phone DENISHA RAO Unavailable Salo Janet Unavailable Unavailable SVETLANA Page Unavailable Unavai lable PROBLEMS Type Condition ICD9-CM Code WUU94-NQ Code Onset Dates Condition Status W/U Status Risk SNOMED Code Notes Problem Chronic kidney disease, stage 4 (severe) N18.4 confirmed 268031881 Problem Hypovitaminos is D E55.9 confirmed 02207667 Problem Chronic obstructive pulmonary disease, unspecified COPD type J44.9 confirmed 11609096 Problem Incisional hernia without mention of obstruction or gangrene K43.2 Nov, confirmed 211665496 14428 4_Migr ated Problem 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 confirmed 314441130 -37670 4_Migr ated Problem CKD (chronic kidney disease) stage 3, GFR 30-59 ml/min N18.3 Jan, confirmed 521320314 64721 4_Migr ated Problem Severe obesity (BMI 35.0-39.9) with comorbidity E66.01 Mar, confirmed 657585972 -45896 4_Migr ated Problem Dependence on supplemental oxygen Z99.81 confirmed 0246751094 07 Problem 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 confirmed 22898367 Problem Acute on chronic respiratory failure J96.20 confirmed 27697027 Problem Essential (primary) hypertension I10 confirmed 01030822 Problem Other iron deficiency anemias D50.8 confirmed 12897581 Problem Elevated fasting glucose R73.01 Jul, confirmed 682225997 -11617 4_Migr ated Problem Nocturnal hypoxia G47.34 07 Aug, 2016 confirmed 029452035 -93689 4_Migr ated Problem Essential hypertension I10 confirmed 90297017 Problem Sleep apnea G47.30 25 Dec, 2010 confirmed 77424045 -26073 4_Migr ated Problem Mixed hyperlipidemi a E78.2 confirmed 657448982 Problem Anxiety F41.9 confirmed 10161699 Problem Seasonal allergic rhinitis, unspecified trigger J30.2 confirmed 520692037 Problem Chronic gout of multiple sites, unspecified cause M1A.09X0 confirmed 79008409 Problem COPD exacerbation J44.1 confirmed 221238071 Problem Chronic bronchitis, unspecified chronic bronchitis type J42 confirmed 68309871 Problem Acute and chronic respiratory failure with hypoxia J96.21 confirmed 2012049485 3743895 Problem Oxygen dependent Z99.81 confirmed 2048910995 07 Problem Peripheral vascular disease I73.9 Jul, confirmed 184643316 -31802 4_Migr ated Problem Difficulty sleeping G47.9 confirmed 935344913 Problem Essential hypertension, benign I10 confirmed 2685273 -62981 4_Migr ated Problem Tobacco use Z72.0 19 Jun, 2015 confirmed 751118616 -81490 4_Migr ated Problem Chronic obstructive pulmonary disease with (acute) exacerbation J44.1 confirmed 753739782 Problem Acute on chronic diastolic congestive heart failure I50.33 confirmed 827437573 Problem 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.0 confirmed 4295843742 9107 Problem Decreased breath sounds R06.89 confirmed 12572386 ALLERGIES No Known Allergies ENCOUNTERS from 1940 to 2022-12-30 Encounter Location Date Provider Diagnosis [facility] [address] [id number] [place] [address] Dec, DENISHA RAO Anxiety F41.9 IMMUNIZATIONS Vaccine Route Administration Date Status 2nd Dose HRSA MODERNA, COVID -19, 0.5mL IM Intramuscular August 23, 2020 Administered 1st Booster MODERNA COVID-19 , mRNA, 0.25mL Unknown Jul 18, 2021 Refused PRIVATE FLUZONE HIGH DOSE QU AD 0.7ML (65 and UP) 2020 Unknown Jul 18, 2021 Refused 1st Dose KALYAN GERARD, JACQUESID -19, 0.5mL IM Intramuscular July 26, 2020 [...] 6 hrs Active PredniSONE (Pj) started by [facility] Nov, Active Advair Diskus 250-50 MCG/DOSE 1 puff Inhalation Twice a day Not-Taking Cefdinir 300 MG as directed Orally started by [facility] 2022 Active Atorvastatin Calcium 80 MG [...] day for 30 day(s) Originally ordered by Bank Consultant - Dr. Millan in 2020. Apr, Active [...] 365 days September, Active Vitamin D (Ergocalciferol) 65184 UNIT 1 capsule Orally Not-Taking Ferrous Sulfate [...] Asset ta September, Active REASON FOR VISIT Controlled Med Refill* MEDICAL (GENERAL) HISTORY Type Description Date Medical History hypertension Medical History Kidney failure- sees Bank Consultant in [place]-stage 3 Medical History CHF Medical History COPD Surgical History cholecystectomy Surgical History cardiac stent 4-5 years ago Surgical History Ureteral Stent 4-5 years ago Surgical History colonoscopy-2008 Surgical History thoracentesis and ch est tube placed by Dr Alarcon at [facility] 01/14/2021 Hospitalization History surgical Hospitalization History pneumonia at the end of the yr not sure of date Hospitalization History [facility]-a/c resp martir lure, pneumothorax s/p chest tube, pleural effusion s/p thoracentesis, and a/c renal failure 01/12-01/21/2021 Hospitalization History [facility]-a/c chf, a/c resp failure with hypoxia, a/c renal failure, CAP, and pleural effusion 11/24-11/27/2022 MENTAL STATUS No Information ASSESSMENTS Encounter Date Diagnosis Assessment Notes Treatment Notes Treatment Clinical Notes Dec, Anxiety (ICD-10 - F41.9) PLAN OF TREATMENT [...] End Date Subscriber Number Group Number [employer] [facility] PART A FI [address] [facility] [id number] Ivone Callejas Self - patient is the insured [id number] [place] [address] [address] [facility] [phone] Ivone Callejas Self - patient is the insured [id number] [facility] [employer] [address] [facility] [phone] Ivone Callejas Self - patient is the insured [id number] MEDICATIONS ADMINISTERED Medication Instructions Date of Administration Dosag e DEPO MEDROL 80 MG/ML Jul, 1 mL DEXAMETHASONE 4MG/ML (PER 1 ML) Jul, 020 1 mL
--- OUTSIDE RECORDS SUMMARY | 2023-02-01 13:16 | XMS REPORT ---
Author Author [facility] ter of [facility] ter of [place] Address Unknown Phone Unavailable Care Team Providers Care Dust Box Worker Name Role Phone DENISHA RAO Unavailable Salo Janet Unavailable Unavailable SVETLANA Page Unavailable Unavai lable PROBLEMS Type Condition ICD9-CM Code GZW08-LB Code Onset Dates Condition Status W/U Status Risk SNOMED Code Notes Problem Chronic kidney disease, stage 4 (severe) N18.4 confirmed 010123130 Problem Hypovitaminos is D E55.9 confirmed 99369822 Problem Chronic obstructive pulmonary disease, unspecified COPD type J44.9 confirmed 25248957 Problem Incisional hernia without mention of obstruction or gangrene K43.2 Nov, confirmed 338456779 98134 4_Migr ated Problem 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 confirmed 640298576 -59646 4_Migr ated Problem CKD (chronic kidney disease) stage 3, GFR 30-59 ml/min N18.3 Jan, confirmed 121095705 23608 4_Migr ated Problem Severe obesity (BMI 35.0-39.9) with comorbidity E66.01 Mar, confirmed 030321589 -43600 4_Migr ated Problem Dependence on supplemental oxygen Z99.81 confirmed 0717655112 07 Problem 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 confirmed 57322688 Problem Acute on chronic respiratory failure J96.20 confirmed 58132593 Problem Essential (primary) hypertension I10 confirmed 09869681 Problem Other iron deficiency anemias D50.8 confirmed 07345902 Problem Elevated fasting glucose R73.01 Jul, confirmed 491541685 -02822 4_Migr ated Problem Nocturnal hypoxia G47.34 07 Aug, 2016 confirmed 034172052 -10681 4_Migr ated Problem Essential hypertension I10 confirmed 24497620 Problem Sleep apnea G47.30 25 Dec, 2010 confirmed 64251969 -52194 4_Migr ated Problem Mixed hyperlipidemi a E78.2 confirmed 999424347 Problem Anxiety F41.9 confirmed 76306687 Problem Seasonal allergic rhinitis, unspecified trigger J30.2 confirmed 534535657 Problem Chronic gout of multiple sites, unspecified cause M1A.09X0 confirmed 04730341 Problem COPD exacerbation J44.1 confirmed 418808174 Problem Chronic bronchitis, unspecified chronic bronchitis type J42 confirmed 62265433 Problem Acute and chronic respiratory failure with hypoxia J96.21 confirmed 8439259034 1684384 Problem Oxygen dependent Z99.81 confirmed 8385150822 07 Problem Peripheral vascular disease I73.9 Jul, confirmed 822485506 -35931 4_Migr ated Problem Difficulty sleeping G47.9 confirmed 744001357 Problem Essential hypertension, benign I10 confirmed 9707769 14764 4_Migr ated Problem Tobacco use Z72.0 Jun, confirmed 980657532 -82053 4_Migr ated Problem Chronic obstructive pulmonary disease with (acute) exacerbation J44.1 confirmed 332353435 Problem Acute on chronic diastolic congestive heart failure I50.33 confirmed 101777170 Problem 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.0 confirmed 7528987940 9107 Problem Decreased breath sounds R06.89 confirmed 51650385 ALLERGIES No Known Allergies ENCOUNTERS from 1940 to 2022-12-28 Encounter Location Date Provider [facility] [address] [id number] [place] [address] 11 Dec, 2020 DENISHA RAO Medication monitortesfaye rider encounter Z51.81 ; Encounter for Medicare annual wellness exam Z00.00 ; Encounter for immunization Z23 and Exertional dyspnea R06.00 IMMUNIZATIONS Vaccine Route Administration Date Status prevnar pcv 13 (history) Unknown Apr 07, 2016 Adm inistered influenza (history) Unknown Apr 07, 2016 Administ erekareen PRIVATE FLUZONE HIGH DOSE QU AD 0.7ML (65 and UP) 2020 Unknown Jul 18, 2021 Refused 1st Booster MODERNA COVID-19 , mRNA, 0.25mL Unknown Jul 18, 2021 Refused 1st Dose HRSA MODERNA, COVID -19, 0.5mL IM Intramuscular July 26, 2020 Administered 2nd Dose HRSA MODERNA, COVID -19, 0.5mL IM Intramuscular August 23, 2020 Administered PRIVATE TDAP (BOOSTRIX) IM Intramuscular [...] user? No REASON FOR REFERRAL No Information VITAL SIGNS Height 67 in Dec, Weight 213 lbs Dec, Weight-kg 96.62 kg Dec, Temperature 97.1 degrees Fahrenheit Dec, Heart Rate 77 bpm Dec, Respiratory Rate 20 bpm Dec, Oximetry ambulating w/ oxygen:92 % Dec BMI 33.36 kg/m2 Dec, Blood pressure systolic 110 mmHg Dec, Blood pressure diastolic 60 mmHg Dec, MEDICATIONS Medication SIG (Take, Route, Frequency, Duration) Notes Start Date End Date Status Blood Pressure Cuff - as directed daily for 365 days Asset ta September, Active Acetaminophen 500 MG 1 tablet as needed Orally every 6 hrs Active PredniSONE (Pj) started by [facility] Nov, Active Advair Diskus 250-50 MCG/DOSE 1 puff Inhalation Twice a day Not-Taking Cefdinir 300 MG as directed Orally started by [facility] 2022 Active Atorvastatin Calcium 80 MG [...] day for 30 day(s) Originally ordered by Wet Chemistry Analyst - Dr. Millan in 2020. Apr, Active [...] 365 days September, Active Vitamin D (Ergocalciferol) 78495 UNIT 1 capsule Orally Not-Taking Ferrous Sulfate [...] Asset ta September, Active REASON FOR VISIT Medicare AWV, discuss oxygen having low oxygen levels, needs anxiety medication refilled it is missing, cm, Benzo contract, pdm, dexa, pcv23, malaika Celaya, pt will discuss with Belia lovett ma, ambulating with oxygen at 5 liters at 92 it would not go up past 89 til turned to 5, malaika Celaya MEDICAL (GENERAL) HISTORY Type Description Date Medical History hypertension Medical History Kidney failure- sees Wet Chemistry Analyst in [place]-stage 3 Medical History CHF Medical History COPD Surgical History cholecystectomy Surgical History cardiac stent 4-5 years ago Surgical History Ureteral Stent 4-5 years ago Surgical History colonoscopy-2008 Surgical History thoracentesis and ch est tube placed by Dr Alarcon at [facility] 01/14/2021 Hospitalization History surgical Hospitalization History [...] Notes Treatment Notes Treatment Clinical Notes Dec, Encounter for Medicare annual wellness exam (ICD-10 - Z00.00) Health maintenance reviewed. Vaccines up dated Dec, Medication monitoring encounter (ICD-10 - Z51.81) Dec, Encounter for immunization (ICD-10 - Z23) Dec, Exertional dyspnea (ICD-10 - R06.00) Pt SpO2 levels 90 at rest. with minimal exertion dropped to 84. Pt SpO2 with ambulation did not go over 92 until 5 L oxygen via NC applied - feel pt would benefit from oxygen with ambulation as well at rest. PLAN OF TREATMENT Medication Medication Name Sig Start Date Stop Date dilTIAZem HCl ER Coated Bead s 300 MG TAKE ONE (1) CAPSULE BY MOUTH ONCE DAILY for 90 clonazePAM 1 MG 1 tablet at bedtime Orally Once a day for 28 days Dec, Treatment Notes Assessment Notes Clinical Notes Encounter for Medicare l wellness exam Health maintenance reviewed. Vaccines up dated Exertional dyspnea Pt SpO2 level s 90 at rest. with minimal exertion dropped to 84. Pt SpO2 with ambulation did not go over 92 until 5 L oxygen via NC applied - feel pt would benefit from oxygen with ambulation as well at rest. Next Appt Details 1 Year,prn Reason:AWV Follow Up:1 Year,prnAWV Insurance Providers Payer Name Payer Address Payer Phone Insured Name Patient Relationship to Insured Coverage Start Date Coverage End Date Subscriber Number Group Number WPS COUNT INCLUDES THE [facility] PART A FI [address] [facility] [id number] Ivone Callejas Self - patient is the insured [id number] [facility] [facility] Ins Co [address] [facility] [phone] Ivone Callejas Self - patient is the insured [id number] [place] [address] [address] [facility] [address] Ivone Callejas Self - patient is the insured [id number] MEDICATIONS ADMINISTERED Medication Instructions Date of Administration Dosag e DEPO MEDROL 80 MG/ML Jul, 1 mL DEXAMETHASONE 4MG/ML (PER 1 ML) Jul, 020 1 mL
--- OUTSIDE RECORDS SUMMARY | 2023-02-01 13:16 | XMS REPORT ---
Author Author Formerly [facility] ter of [facility] ter of [facility] Address Unknown Phone Unavailable Care Team Providers Care Banking Management Consulting Manager Name Role Phone DENISHA RAO Unavailable Salo Janet Unavailable Unavailable SVETLANA Page Unavailable Unavai lable PROBLEMS Type Condition ICD9-CM Code BJY30-FE Code Onset Dates Condition Status W/U Status Risk SNOMED Code Notes Problem Chronic kidney disease, stage 4 (severe) N18.4 confirmed 103835106 Problem Hypovitaminos is D E55.9 confirmed 91219229 Problem Chronic obstructive pulmonary disease, unspecified COPD type J44.9 confirmed 46853470 Problem Incisional hernia without mention of obstruction or gangrene K43.2 Nov, confirmed 537947466 64981 4_Migr ated Problem 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 confirmed 941293100 -48688 4_Migr ated Problem CKD (chronic kidney disease) stage 3, GFR 30-59 ml/min N18.3 Jan, confirmed 146841250 54705 4_Migr ated Problem Severe obesity (BMI 35.0-39.9) with comorbidity E66.01 Mar, confirmed 998300227 -10067 4_Migr ated Problem Dependence on supplemental oxygen Z99.81 confirmed 4280877599 07 Problem 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 confirmed 28256491 Problem Acute on chronic respiratory failure J96.20 confirmed 61164531 Problem Essential (primary) hypertension I10 confirmed 77572686 Problem Other iron deficiency anemias D50.8 confirmed 08025492 Problem Elevated fasting glucose R73.01 Jul, confirmed 930650117 -65046 4_Migr ated Problem Nocturnal hypoxia G47.34 07 Aug, 2016 confirmed 275276242 -54563 4_Migr ated Problem Essential hypertension I10 confirmed 88587606 Problem Sleep apnea G47.30 25 Dec, 2010 confirmed 00665147 -05655 4_Migr ated Problem Mixed hyperlipidemi a E78.2 confirmed 982549573 Problem Anxiety F41.9 confirmed 00176936 Problem Seasonal allergic rhinitis, unspecified trigger J30.2 confirmed 817414443 Problem Chronic gout of multiple sites, unspecified cause M1A.09X0 confirmed 24452252 Problem COPD exacerbation J44.1 confirmed 518429066 Problem Chronic bronchitis, unspecified chronic bronchitis type J42 confirmed 09504756 Problem Acute and chronic respiratory failure with hypoxia J96.21 confirmed 1764697681 7725091 Problem Oxygen dependent Z99.81 confirmed 5797507581 07 Problem Peripheral vascular disease I73.9 Jul, confirmed 384262257 -76142 4_Migr ated Problem Difficulty sleeping G47.9 confirmed 531610938 Problem Essential hypertension, benign I10 confirmed 0880269 20153 4_Migr ated Problem Tobacco use Z72.0 19 Jun, 2015 confirmed 977052645 -73806 4_Migr ated Problem Chronic obstructive pulmonary disease with (acute) exacerbation J44.1 confirmed 615962698 Problem Acute on chronic diastolic congestive heart failure I50.33 confirmed 255205466 Problem 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.0 confirmed 8741981915 9107 Problem Decreased breath sounds R06.89 confirmed 03883361 ALLERGIES No Known Allergies ENCOUNTERS from 1940 to 2022-12-21 Encounter Location Date Provider Diagnosis [facility] [address] [id number] [place] [address] Dec, DENISHA RAO IMMUNIZATIONS Vaccine Route Administration Date Status 2nd Dose HRSA MODERNA, COVID -19, 0.5mL IM Intramuscular August 23, 2020 Administered 1st Booster MODERNA COVID-19 , mRNA, 0.25mL Unknown Jul 18, 2021 Refused PRIVATE FLUZONE HIGH DOSE QU AD 0.7ML (65 and UP) 2020 Unknown Jul 18, 2021 Refused 1st Dose HRSA MOUSTAPHA, JACQUESID -19, 0.5mL IM Intramuscular July 26, [...] 300 MG as directed Orally started by [facility] 10 2022 Active Docusate Sodium 100 MG 1 [...] UNTIL 11/30/22 Oct, Active Vitamin D (Ergocalciferol) 09729 UNIT 1 capsule Orally Not-Taking Ferrous Sulfate 325 (65 Fe) MG 1 tablet Orally twice a day Active Raised Toilet Seat - as directed daily for 365 days September, Active Cetirizine HCl 10 MG 1 tablet Orally Once a day Active Coreg 6.25 MG 1 tablet with food Orally Twice a day for 30 day(s) Originally ordered by Pmp Certified Project Manager - Dr. Millan in 2020. Apr, Active dilTIAZem HCl ER Coated Beads 300 MG TAKE ONE (1) CAPSULE BY MOUTH ONCE DAILY for 90 Active PredniSONE (Pj) started by [facility] Nov, Active REASON FOR VISIT breathing issues MEDICAL (GENERAL) HISTORY Type Description Date Medical History hypertension Medical History Kidney failure- sees Pmp Certified Project Manager in [place]-stage 3 Medical History CHF Medical History COPD Surgical History cholecystectomy Surgical History cardiac stent 4-5 years ago Surgical History Ureteral Stent 4-5 years ago Surgical History colonoscopy-2008 Surgical History thoracentesis and ch est tube placed by Dr Alarcon at [facility] 01/14/2021 Hospitalization History surgical Hospitalization History pneumonia at the end of the yr not sure of date Hospitalization History [facility]-a/c resp martir lure, pneumothorax s/p chest tube, pleural effusion s/p thoracentesis, and a/c renal failure 01/12-01/21/2021 Hospitalization History [facility]-a/c chf, a/c resp failure with hypoxia, a/c renal failure, CAP, and pleural effusion 11/24-11/27/2022 MENTAL STATUS No Information PLAN OF TREATMENT No Information Insurance Providers Payer Name Payer Address Payer Phone Insured Name Patient Relationship to Insured Coverage Start Date Coverage End Date Subscriber Number Group Number [facility] [address] [facility] [phone] Ivone Callejas Self - patient is the insured [id number] [facility] PART A FI [address] [facility] [phone] Ivone Callejas Self - patient is the insured [id number] [facility] [place] [address] [facility] [phone] Ivone Callejas Self - patient is the insured [id number] MEDICATIONS ADMINISTERED Medication Instructions Date of Administration Dosag e DEPO MEDROL 80 MG/ML Jul, 1 mL DEXAMETHASONE 4MG/ML (PER 1 ML) Jul, 020 1 mL
--- OUTSIDE RECORDS SUMMARY | 2023-02-01 13:16 | XMS REPORT ---
Author Author [facility] ter of [facility] ter of [facility] Address Unknown Phone Unavailable Care Team Providers Care Strategic Advisor Name Role Phone VIKY CHEATHAM Unavailable Janet Leong Unavailable Unavailable SVETLANA Page Unavailable Unavai lable PROBLEMS Type Condition ICD9-CM Code WYL59-YO Code Onset Dates Condition Status W/U Status Risk SNOMED Code Notes Problem Chronic kidney disease, stage 4 (severe) N18.4 confirmed 828665348 Problem Hypovitaminos is D E55.9 confirmed 65520239 Problem Chronic obstructive pulmonary disease, unspecified COPD type J44.9 confirmed 88635854 Problem Incisional hernia without mention of obstruction or gangrene K43.2 Nov, confirmed 697406751 44718 4_Migr ated Problem 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 confirmed 589294427 -16021 4_Migr ated Problem CKD (chronic kidney disease) stage 3, GFR 30-59 ml/min N18.3 Jan, confirmed 148666018 17150 4_Migr ated Problem Severe obesity (BMI 35.0-39.9) with comorbidity E66.01 Mar, confirmed 883974124 -18753 4_Migr ated Problem Dependence on supplemental oxygen Z99.81 confirmed 2317423720 07 Problem 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 confirmed 27138809 Problem Acute on chronic respiratory failure J96.20 confirmed 67633757 Problem Essential (primary) hypertension I10 confirmed 26150255 Problem Other iron deficiency anemias D50.8 confirmed 08229495 Problem Elevated fasting glucose R73.01 Jul, confirmed 527693823 -86137 4_Migr ated Problem Nocturnal hypoxia G47.34 07 Aug, 2016 confirmed 414528840 -86867 4_Migr ated Problem Essential hypertension I10 confirmed 69613017 Problem Sleep apnea G47.30 25 Dec, 2010 confirmed 75170477 -08105 4_Migr ated Problem Mixed hyperlipidemi a E78.2 confirmed 796744613 Problem Anxiety F41.9 confirmed 75294365 Problem Seasonal allergic rhinitis, unspecified trigger J30.2 confirmed 909721614 Problem Chronic gout of multiple sites, unspecified cause M1A.09X0 confirmed 18952740 Problem COPD exacerbation J44.1 confirmed 758036248 Problem Chronic bronchitis, unspecified chronic bronchitis type J42 confirmed 67172757 Problem Acute and chronic respiratory failure with hypoxia J96.21 confirmed 4777895481 8986809 Problem Oxygen dependent Z99.81 confirmed 4992100787 07 Problem Peripheral vascular disease I73.9 Jul, confirmed 998671046 -83532 4_Migr ated Problem Difficulty sleeping G47.9 confirmed 215793969 Problem Essential hypertension, benign I10 confirmed 0399090 40740 4_Migr ated Problem Tobacco use Z72.0 Jun, confirmed 670186101 -40914 4_Migr ated Problem Chronic obstructive pulmonary disease with (acute) exacerbation J44.1 confirmed 019048333 Problem Acute on chronic diastolic congestive heart failure I50.33 confirmed 805365869 Problem 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.0 confirmed 3362538137 9107 Problem Decreased breath sounds R06.89 confirmed [id number] ALLERGIES No Known Allergies ENCOUNTERS from 1940 to 2023-01-06 Encounter Location Date Provider Diagnosis [facility] [address] [facility] [id number] [place] [address] Jan, VIKY CHEATHAM IMMUNIZATIONS Vaccine Route Administration Date [...] 6 hrs Active PredniSONE (Pj) started by [facility] Nov, Active Advair Diskus 250-50 MCG/DOSE 1 puff Inhalation Twice a day Not-Taking Cefdinir 300 MG as directed Orally started by [facility] 2022 Active Atorvastatin Calcium 80 MG [...] day for 30 day(s) Originally ordered by Divider Operator - Dr. Millan in 2020. Apr, Active [...] 365 days September, Active Vitamin D (Ergocalciferol) 01822 UNIT 1 capsule Orally Not-Taking Ferrous Sulfate [...] Asset ta September, Active REASON FOR VISIT TCM Call MEDICAL (GENERAL) HISTORY Type Description Date Medical History hypertension Medical History Kidney failure- sees Divider Operator in [place]-stage 3 Medical History CHF Medical History COPD Surgical History cholecystectomy Surgical History cardiac stent 4-5 years ago Surgical History Ureteral Stent 4-5 years ago Surgical History colonoscopy-2008 Surgical History thoracentesis and ch est tube placed by Dr Alarcon at [facility] 01/14/2021 Hospitalization History surgical Hospitalization History pneumonia at the end of the yr not sure of date Hospitalization History [facility]-a/c resp martir lure, pneumothorax s/p chest tube, pleural effusion s/p thoracentesis, and a/c renal failure 01/12-01/21/2021 Hospitalization History [facility]-a/c chf, a/c resp failure with hypoxia, a/c [...] End Date Subscriber Number Group Number [facility] PART A FI [address] [facility] [phone] Ivone Callejas Self - patient is the insured [id number] [facility] [address] [facility] [phone] Ivone Callejas Self - patient is the insured [id number] [place] [address] [address] [facility] [phone] Ivone Callejas Self - patient is the insured [id number] MEDICATIONS ADMINISTERED Medication Instructions Date of Administration Dosag e DEPO MEDROL 80 MG/ML Jul, 1 mL DEXAMETHASONE 4MG/ML (PER 1 ML) Jul, 020 1 mL
--- OUTSIDE RECORDS SUMMARY | 2023-02-01 13:16 | XMS REPORT ---
Author Author Former[facility] ter of [facility] ter of [facility] Address Unknown Phone Unavailable Care Team Providers Care Lap Layer Name Role Phone DENISHA RAO Unavailable Salo Janet Unavailable Unavailable MARTELL PageMAN Unavailable Unavai lable PROBLEMS Type Condition ICD9-CM Code SAE18-SB Code Onset Dates Condition Status W/U Status Risk SNOMED Code Notes Problem Essential (primary) hypertension I10 confirmed 36562743 Problem Chronic obstructive pulmonary disease, unspecified COPD type J44.9 confirmed 75410287 Problem Chronic kidney disease, stage 4 (severe) N18.4 confirmed 051948007 Problem 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 confirmed 560234526 -9927087 4_Migr ated Problem Hypovitaminos is D E55.9 confirmed 40001044 Problem Severe obesity (BMI 35.0-39.9) with comorbidity E66.01 Mar, confirmed 528049155 -12308 4_Migr ated Problem Incisional hernia without mention of obstruction or gangrene K43.2 Nov, confirmed 938772400 -15930 4_Migr ated Problem Acute on chronic respiratory failure J96.20 confirmed 79564043 Problem Seasonal allergic rhinitis, unspecified trigger J30.2 confirmed 064357542 Problem Other iron deficiency anemias D50.8 confirmed 09494900 Problem 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 confirmed 04137680 Problem Nocturnal hypoxia G47.34 Aug, confirmed 885094497 -81014 4_Migr ated Problem CKD (chronic kidney disease) stage 3, GFR 30-59 ml/min N18.3 06 Jan, 2017 confirmed 257661557 -77309 4_Migr ated Problem Sleep apnea G47.30 Dec, confirmed 33972011 -10101 4_Migr ated Problem Elevated fasting glucose R73.01 Jul, confirmed 125459146 -50392 4_Migr ated Problem Anxiety F41.9 confirmed 23372876 Problem Essential hypertension I10 confirmed 98326309 Problem Mixed hyperlipidemi a E78.2 confirmed 525341917 Problem Chronic gout of multiple sites, unspecified cause M1A.09X0 confirmed 37910160 Problem Dependence on supplemental oxygen Z99.81 confirmed 8668935078 07 Problem COPD exacerbation J44.1 confirmed 899191569 Problem Chronic bronchitis, unspecified chronic bronchitis type J42 confirmed 46065186 Problem Decreased breath sounds R06.89 confirmed 55005379 Problem Tobacco use Z72.0 Jun, confirmed 005308384 -44191 4_Migr ated Problem Oxygen dependent Z99.81 confirmed 4914477183 07 Problem Peripheral vascular disease I73.9 Jul, confirmed 800011211 -20801 4_Migr ated Problem Essential hypertension, benign I10 confirmed 2027443 -99085 4_Migr ated Problem Acute and chronic respiratory failure with hypoxia J96.21 confirmed 5270643194 4102534 Problem Chronic obstructive pulmonary disease with (acute) exacerbation J44.1 confirmed 612501486 Problem 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.0 confirmed 1226325591 9107 Problem Acute on chronic diastolic congestive heart failure I50.33 confirmed 666590345 ALLERGIES No Known Allergies ENCOUNTERS from 1940 to 2022-09-18 Encounter Location Date Provider Diagnosis [facility] [address] [id number] [place] [address] September, DENISHA RAO Anxiety F41.9 IMMUNIZATIONS Vaccine Route Administration Date Status PRIVATE PPSV23 (PNEUMOVAX) IM Intramuscular Dec 29 21 Administered PRIVATE TDAP (BOOSTRIX) IM Intramuscular Dec 29, 2020 Administered prevnar pcv 13 (history) Unknown Apr 07, 2016 Adm inistered influenza (history) Unknown Apr 07, 2016 Administ ered 1st Dose HRSA MODERNA, COVID -19, 0.5mL IM Intramuscular July 26, 2020 Administered 2nd Dose HRSA MODERNA, COVID -19, 0.5mL IM Intramuscular August 23, 2020 Administered PRIVATE FLUZONE HIGH DOSE QU AD 0.7ML [...] Once a day for 30 day(s) Active Furosemide 40 MG 1 tablet Orally Once a day for 90 days Active Raised Toilet Seat - as directed daily for 365 days September, Active Calcitriol 0.25 Mon/Sun/Sun Ac tive clonazePAM 1 MG 1 tablet at bedtime Orally Once a day for 28 days Aug, Active Oxygen 2L as directed inhale 3L-4 L at rest PM adirected Active dilTIAZem HCl ER Coated Beads 300 MG TAKE ONE (1) CAPSULE BY MOUTH ONCE DAILY for 90 Active Blood Pressure Cuff - as directed daily for 365 days Asset ta September, Active Coreg 6.25 MG 1 tablet with food Orally Twice a day for 30 day(s) Originally ordered by Occupational Therapist Assistant - Dr. Millan in 2020. Apr, Active Advair Diskus 250-50 MCG/DOSE 1 puff Inhalation Twice a day Active Atorvastatin Calcium 80 MG TAKE ONE (1) TABLET BY MOUTH ONCE DAILY IN THE EVENING for 90 Active Vitamin D (Ergocalciferol) 35732 UNIT 1 capsule Orally Active BMI Digital Smart Scale - as directed daily for 365 days Asset ta September, Active Allopurinol 100 MG TAKE ONE (1) TABLET BY MOUTH ONCE DAILY for 60 Active Fluticasone-Salmete rol 115-21 MCG/ACT 2 puffs Inhalation Twice a day need refill Active REASON FOR VISIT Controlled Med Refill 10/07 MEDICAL (GENERAL) HISTORY Type Description Date Medical History hypertension Medical History Kidney failure- sees Occupational Therapist Assistant in [place]-stage 3 Medical History CHF Medical History COPD Surgical History cholecystectomy Surgical History cardiac stent 4-5 years ago Surgical History Ureteral Stent 4-5 years ago Surgical History colonoscopy-2008 Surgical History thoracentesis and ch est tube placed by Dr Alarcon at [facility] 01/14/2021 Hospitalization History surgical Hospitalization History pneumonia at the end of the yr not sure of date Hospitalization History [facility]-a/c resp martir lure, pneumothorax s/p chest tube, pleural effusion s/p thoracentesis, and a/c renal failure 01/12-01/21/2021 MENTAL STATUS No Information ASSESSMENTS Encounter Date Diagnosis Assessment Notes Treatment Notes Treatment Clinical Notes September, Anxiety (ICD-10 - F41.9) PLAN OF TREATMENT Medication Medication Name Sig Start Date Stop Date clonazePAM 1 MG 1 tablet at bedtime Orally Once a day for 28 days Aug, Insurance Providers Payer Name Payer Address Payer Phone Insured Name Patient Relationship to Insured Coverage Start Date Coverage End Date Subscriber Number Group Number [facility] PART A [address] [facility] [id number] Ivone Callejas Self - patient is the insured [id number] [facility] [address] [facility] [phone] Ivone Callejas Self - patient is the insured [id number] [facility] 19 [address] [facility] [address] Ivone Callejas Self - patient is the insured [id number] MEDICATIONS ADMINISTERED Medication Instructions Date of Administration Dosag e DEPO MEDROL 80 MG/ML Jul, 1 mL DEXAMETHASONE 4MG/ML (PER 1 ML) Jul, 020 1 mL
--- OUTSIDE RECORDS SUMMARY | 2023-02-01 13:16 | XMS REPORT ---
Author Author [facility] of [facility] Address Unknown Phone Unavailable Care Team Providers Care Deputy Sheriff Civil [employer] Name Role Phone DENISHA RAO Unavailable Salo Janet Unavailable Unavailable MARTELL PageMAN Unavailable Unavai lable PROBLEMS Type Condition ICD9-CM Code ARM05-EL Code Onset Dates Condition Status W/U Status Risk SNOMED Code Notes Problem Essential (primary) hypertension I10 confirmed 58676199 Problem Chronic obstructive pulmonary disease, unspecified COPD type J44.9 confirmed 18464069 Problem Chronic kidney disease, stage 4 (severe) N18.4 confirmed 062807518 Problem 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 confirmed [id number] -0071593 4_Migr ated Problem Hypovitaminos is D E55.9 confirmed 82757047 Problem Severe obesity (BMI 35.0-39.9) with comorbidity E66.01 Mar, confirmed 420205993 -23738 4_Migr ated Problem Incisional hernia without mention of obstruction or gangrene K43.2 Nov, confirmed 353280888 -31774 4_Migr ated Problem Acute on chronic respiratory failure J96.20 confirmed 00286825 Problem Seasonal allergic rhinitis, unspecified trigger J30.2 confirmed 781951437 Problem Other iron deficiency anemias D50.8 confirmed 94065734 Problem 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 confirmed 21134725 Problem Nocturnal hypoxia G47.34 Aug, confirmed 191059630 -28275 4_Migr ated Problem CKD (chronic kidney disease) stage 3, GFR 30-59 ml/min N18.3 06 Jan, 2017 confirmed 400530966 -65318 4_Migr ated Problem Sleep apnea G47.30 Dec, confirmed 16674989 -55819 4_Migr ated Problem Elevated fasting glucose R73.01 Jul, confirmed 705165796 -44022 4_Migr ated Problem Anxiety F41.9 confirmed 30188244 Problem Essential hypertension I10 confirmed 78661752 Problem Mixed hyperlipidemi a E78.2 confirmed 509929656 Problem Chronic gout of multiple sites, unspecified cause M1A.09X0 confirmed 85603556 Problem Dependence on supplemental oxygen Z99.81 confirmed 9286121866 07 Problem COPD exacerbation J44.1 confirmed 089627824 Problem Chronic bronchitis, unspecified chronic bronchitis type J42 confirmed 43230153 Problem Decreased breath sounds R06.89 confirmed 99185326 Problem Tobacco use Z72.0 Jun, confirmed 505310890 -93195 4_Migr ated Problem Oxygen dependent Z99.81 confirmed 3114262499 07 Problem Peripheral vascular disease I73.9 Jul, confirmed 751396718 -19810 4_Migr ated Problem Essential hypertension, benign I10 confirmed 9212612 00495 4_Migr ated Problem Acute and chronic respiratory failure with hypoxia J96.21 confirmed 2560015266 6627058 Problem Chronic obstructive pulmonary disease with (acute) exacerbation J44.1 confirmed 939887219 Problem 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 Active Advair Diskus 250-50 MCG/DOSE 1 puff Inhalation Twice a day Active Albuterol Sulfate HFA 108 (90 Base) MCG/ACT INHALE ONE (1) TO TWO (2) PUFFS BY MOUTH DIRECTED EVERY 4 TO 6 HOURS NEEDED for 16 Active Coreg 6.25 MG 1 tablet with food Orally Twice a day for 30 day(s) Originally ordered by Operations Staff Specialist Security - Dr. Millan in 2020. Apr, Active Loratadine 10 MG 1 tablet Orally Once a day for 30 day(s) Active dilTIAZem HCl ER Coated Beads 300 MG TAKE ONE (1) CAPSULE BY MOUTH ONCE DAILY for 90 Active Allopurinol 100 MG TAKE ONE (1) TABLET BY MOUTH ONCE DAILY for 60 Active clonazePAM 1 MG 1 tablet at bedtime Orally Once a day for 28 days Jul, Active Blood Pressure Cuff - as directed daily for 365 days Asset ta September, Active Calcitriol 0.25 Mon/Sun/Fri Ac tive Atorvastatin Calcium 80 MG TAKE ONE (1) TABLET BY MOUTH ONCE DAILY IN THE EVENING for 90 Active BMI Digital Smart Scale - as directed daily for 365 days Asset ta September, Active Fluticasone-Salmete rol 115-21 MCG/ACT 2 puffs Inhalation Twice a day need refill Active Raised Toilet Seat - as directed daily for 365 days September, Active Furosemide 40 MG 1 tablet Orally Once a day for 90 days Active Oxygen 2L as directed inhale 3L-4 L at rest PM adirected Active Vitamin D (Ergocalciferol) 51296 UNIT 1 capsule Orally Active REASON FOR VISIT Controlled Med Refill 09/09 MEDICAL (GENERAL) HISTORY Type Description Date Medical History hypertension Medical History Kidney failure- sees Operations Staff Specialist Security in [place]-stage 3 Medical History CHF Medical History COPD Surgical History cholecystectomy Surgical History cardiac stent 4-5 years ago Surgical History Ureteral Stent 4-5 years ago Surgical History colonoscopy-2008 Surgical History thoracentesis and ch est tube placed by Dr Alarcon at [facility] 01/14/2021 Hospitalization History surgical Hospitalization History pneumonia at the end of the yr not sure of date Hospitalization History [facility]-a/c resp martir lure, pneumothorax s/p chest tube, pleural effusion s/p thoracentesis, and a/c renal failure 01/12-01/21/2021 MENTAL STATUS No Information ASSESSMENTS Encounter Date Diagnosis Assessment Notes Treatment Notes Treatment Clinical Notes Aug, Anxiety (ICD-10 - F41.9) PLAN OF TREATMENT Medication Medication Name Sig Start Date Stop Date clonazePAM 1 MG 1 tablet at bedtime Orally Once a day for 28 days Jul, Furosemide 40 MG 1 tablet Orally Once a day for 90 days Atorvastatin Calcium 80 MG TAKE ONE (1) TABLET BY MOUTH ONCE DAILY IN THE EVENING for 90 dilTIAZem HCl ER Coated Bead s 300 MG TAKE ONE (1) CAPSULE BY MOUTH ONCE DAILY for 90 Insurance Providers Payer Name Payer Address Payer Phone Insured Name Patient Relationship to Insured Coverage Start Date Coverage End Date Subscriber Number Group Number [employer] [facility] PART A [facility] [id number] [id number] Ivone Callejas Self - patient is the insured [id number] [employer] [address] [facility] [phone] Ivone Callejas Self - patient is the insured [id number] [facility] 19 [address] [facility] [phone] Ivone Callejas Self - patient is the insured [id number] MEDICATIONS ADMINISTERED Medication Instructions Date of Administration Dosag e DEXAMETHASONE 4MG/ML (PER 1 ML) Jul, 020 1 mL DEPO MEDROL 80 MG/ML Jul, 1 mL
--- OUTSIDE RECORDS SUMMARY | 2023-02-01 13:16 | XMS REPORT ---
Author Author [facility] ter of [facility] ter of [facility] Address Unknown Phone Unavailable Care Team Providers Care Marketing Trainee Name Role Phone DENISHA RAO Unavailable Salo Janet Unavailable Unavailable MARTELL PageMAN Unavailable Unavai lable PROBLEMS Type Condition ICD9-CM Code [id number] Code Onset Dates Condition Status W/U Status Risk SNOMED Code Notes Problem Essential (primary) hypertension I10 confirmed 22327240 Problem Chronic obstructive pulmonary disease, unspecified COPD type J44.9 confirmed 29415121 Problem Chronic kidney disease, stage 4 (severe) N18.4 confirmed 833357794 Problem 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 confirmed 151686157 -6296758 4_Migr ated Problem Hypovitaminos is D E55.9 confirmed 31549176 Problem Severe obesity (BMI 35.0-39.9) with comorbidity E66.01 Mar, confirmed 178940047 -08308 4_Migr ated Problem Incisional hernia without mention of obstruction or gangrene K43.2 Nov, confirmed 948903687 -75582 4_Migr ated Problem Acute on chronic respiratory failure J96.20 confirmed 15484362 Problem Seasonal allergic rhinitis, unspecified trigger J30.2 confirmed 765986124 Problem Other iron deficiency anemias D50.8 confirmed 27870423 Problem 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 confirmed 34304709 Problem Nocturnal hypoxia G47.34 Aug, confirmed 194579171 -75478 4_Migr ated Problem CKD (chronic kidney disease) stage 3, GFR 30-59 ml/min N18.3 06 Jan, 2017 confirmed 606524452 -90600 4_Migr ated Problem Sleep apnea G47.30 Dec, confirmed 43689487 -80427 4_Migr ated Problem Elevated fasting glucose R73.01 Jul, confirmed 407843118 -58384 4_Migr ated Problem Anxiety F41.9 confirmed 08627530 Problem Essential hypertension I10 confirmed 22310211 Problem Mixed hyperlipidemi a E78.2 confirmed 419094953 Problem Chronic gout of multiple sites, unspecified cause M1A.09X0 confirmed 76419794 Problem Dependence on supplemental oxygen Z99.81 confirmed 5684188246 07 Problem COPD exacerbation J44.1 confirmed 683318539 Problem Chronic bronchitis, unspecified chronic bronchitis type J42 confirmed 50893507 Problem Decreased breath sounds R06.89 confirmed 95346893 Problem Tobacco use Z72.0 Jun, confirmed 105551655 -30938 4_Migr ated Problem Oxygen dependent Z99.81 confirmed 9676861206 07 Problem Peripheral vascular disease I73.9 Jul, confirmed 628944029 -03238 4_Migr ated Problem Essential hypertension, benign I10 confirmed 6504980 -41933 4_Migr ated Problem Acute and chronic respiratory failure with hypoxia J96.21 confirmed 0647365044 2438007 Problem Chronic obstructive pulmonary disease with (acute) exacerbation J44.1 confirmed 497586441 Problem 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.0 confirmed 9050147345 9107 Problem Acute on chronic diastolic congestive heart failure I50.33 confirmed 207744969 ALLERGIES No Known Allergies ENCOUNTERS from 1940 to 2022-07-28 Encounter Location Date Provider Diagnosis [facility] [address] [id number] [place] [address] Aug, DENISHA RAO IMMUNIZATIONS Vaccine Route Administration Date Status PRIVATE PPSV23 (PNEUMOVAX) IM Intramuscular Dec 29 21 Administered PRIVATE TDAP (BOOSTRIX) IM Intramuscular Dec 29, 2020 Administered prevnar pcv 13 (history) Unknown Apr 07, 2016 Adm inistered influenza (history) Unknown Apr 07, 2016 Administ erekareen 1st Dose HRSA MODERNA, COVID -19, 0.5mL IM Intramuscular July 26, 2020 Administered 1st Booster MODERNA COVID-19 , mRNA, 0.25mL Unknown Jul 18, 2021 Refused PRIVATE FLUZONE HIGH DOSE QU AD 0.7ML (65 and UP) 2020 Unknown Jul 18, 2021 Refused 2nd Dose HRSA MODERNA, COVID -19, 0.5mL IM Intramuscular August 23, 2020 Administered SOCIAL HISTORY Sex Assigned At : [...] 1 puff Inhalation Twice a day Active Calcitriol 0.25 Mon/Sun/Sun Ac tive Coreg 6.25 MG 1 tablet with food Orally Twice a day for 30 day(s) Originally ordered by Care Manager - Dr. Millan in 2020. Apr, Active Oxygen 2L as directed inhale 3L-4 L at rest PM adirected Active Loratadine 10 MG 1 tablet Orally Once a day for 30 day(s) Active Atorvastatin Calcium 80 MG TAKE ONE (1) TABLET BY MOUTH ONCE DAILY IN THE EVENING for 90 Active Allopurinol 100 MG TAKE ONE (1) TABLET BY MOUTH ONCE DAILY for 60 Active Blood Pressure Cuff - as directed daily for 365 days Asset ta September, Active clonazePAM 1 MG 1 tablet at bedtime Orally Once a day for 28 days Jun, Active Fluticasone-Salmete rol 115-21 MCG/ACT 2 puffs Inhalation Twice a day need refill Active BMI Digital Smart Scale - as directed daily for 365 days Asset ta September, Active Furosemide 40 MG TAKE ONE (1) TABLET BY MOUTH ONCE DAILY for 90 Active Raised Toilet Seat - as directed daily for 365 days September, Active dilTIAZem HCl ER Coated Beads 300 MG TAKE ONE (1) CAPSULE BY MOUTH ONCE DAILY for 90 Active Albuterol Sulfate HFA 108 (90 Base) MCG/ACT INHALE ONE (1) TO TWO (2) PUFFS BY MOUTH DIRECTED EVERY 4 TO 6 HOURS NEEDED for 16 Active Vitamin D (Ergocalciferol) 41296 UNIT 1 capsule Orally Active REASON FOR VISIT Med refill MEDICAL (GENERAL) HISTORY Type Description Date Medical History hypertension Medical History Kidney failure- sees Care Manager in [place]-stage 3 Medical History CHF Medical History COPD Surgical History cholecystectomy Surgical History cardiac stent 4-5 years ago Surgical History Ureteral Stent 4-5 years ago Surgical History colonoscopy-2008 Surgical History thoracentesis and ch est tube placed by Dr Alarcon at [facility] 01/14/2021 Hospitalization History surgical Hospitalization History pneumonia at the end of the yr not sure of date Hospitalization History [facility]-a/c resp martir lure, pneumothorax s/p chest tube, pleural effusion s/p thoracentesis, and a/c renal failure 01/12-01/21/2021 MENTAL STATUS No Information PLAN OF TREATMENT Medication Medication Name Sig Start Date Stop Date Atorvastatin Calcium 80 MG TAKE ONE (1) TABLET BY MOUTH ONCE DAILY IN THE EVENING for 90 dilTIAZem HCl ER Coated Bead s 300 MG TAKE ONE (1) CAPSULE BY MOUTH ONCE DAILY for 90 Insurance Providers Payer Name Payer Address Payer Phone Insured Name Patient Relationship to Insured Coverage Start Date Coverage End Date Subscriber Number Group Number [employer]PS [employer] INCLUDE [address] [facility] PART A [address] [facility] [phone] Ivone Callejas Self - patient is the insured [id number] [place] [address] [address] [facility] [phone] Ivone Callejas Self - patient is the insured [id number] [facility] [address] [facility] [phone] Ivone Callejas Self - patient is the insured [id number] MEDICATIONS ADMINISTERED Medication Instructions Date of Administration Dosag e DEPO MEDROL 80 MG/ML Jul, 1 mL DEXAMETHASONE 4MG/ML (PER 1 ML) Jul, 020 1 mL
--- OUTSIDE RECORDS SUMMARY | 2023-02-01 13:16 | XMS REPORT ---
Author Author [facility] ter of [facility] of [facility] Address Unknown Phone Unavailable Care Team Providers Care Moshgiach Name Role Phone ABHILASH HE Unavailable Janet Leong Unavailable Unavailable SVETLANA Page Unavailable Unavai lable PROBLEMS Type Condition ICD9-CM Code UJT04-UK Code Onset Dates Condition Status W/U Status Risk SNOMED Code Notes Problem Essential (primary) hypertension I10 confirmed 85006406 Problem Chronic obstructive pulmonary disease, unspecified COPD type J44.9 confirmed 26253708 Problem Chronic kidney disease, stage 4 (severe) N18.4 confirmed 527122115 Problem 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 confirmed 616769833 -3949518 4_Migr ated Problem Hypovitaminos is D E55.9 confirmed 26877618 Problem Severe obesity (BMI 35.0-39.9) with comorbidity E66.01 Mar, confirmed 604159258 -09229 4_Migr ated Problem Incisional hernia without mention of obstruction or gangrene K43.2 Nov, confirmed 172343032 -67330 4_Migr ated Problem Acute on chronic respiratory failure J96.20 confirmed 78585580 Problem Seasonal allergic rhinitis, unspecified trigger J30.2 confirmed 112174496 Problem Other iron deficiency anemias D50.8 confirmed 94263918 Problem 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 confirmed 89573899 Problem Nocturnal hypoxia G47.34 Aug, confirmed 727408849 -24736 4_Migr ated Problem CKD (chronic kidney disease) stage 3, GFR 30-59 ml/min N18.3 06 Jan, 2017 confirmed 372965777 -22445 4_Migr ated Problem Sleep apnea G47.30 Dec, confirmed 12664167 -10258 4_Migr ated Problem Elevated fasting glucose R73.01 Jul, confirmed 145915993 -42788 4_Migr ated Problem Anxiety F41.9 confirmed 93664961 Problem Essential hypertension I10 confirmed 68329690 Problem Mixed hyperlipidemi a E78.2 confirmed 241442969 Problem Chronic gout of multiple sites, unspecified cause M1A.09X0 confirmed 45245646 Problem Dependence on supplemental oxygen Z99.81 confirmed 0470825111 07 Problem COPD exacerbation J44.1 confirmed 492840396 Problem Chronic bronchitis, unspecified chronic bronchitis type J42 confirmed 27814964 Problem Decreased breath sounds R06.89 confirmed 24200843 Problem Tobacco use Z72.0 Jun, confirmed 276881424 -59259 4_Migr ated Problem Oxygen dependent Z99.81 confirmed 6343179518 07 Problem Peripheral vascular disease I73.9 Jul, confirmed 686871326 -84653 4_Migr ated Problem Essential hypertension, benign I10 confirmed 9635469 62205 4_Migr ated Problem Acute and chronic respiratory failure with hypoxia J96.21 confirmed 5590304664 2709855 Problem Chronic obstructive pulmonary disease with (acute) exacerbation J44.1 confirmed 822751473 Problem 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 Millan in 2020. Apr, Active Calcitriol 0.25 Mon/Sun/Sun Ac tive Fluticasone-Salmete rol 115-21 MCG/ACT 2 puffs Inhalation Twice a day need refill Active dilTIAZem HCl ER Coated Beads 300 MG TAKE ONE (1) CAPSULE BY MOUTH ONCE DAILY for 90 Needs appointment for more refills. Active Albuterol Sulfate HFA 108 (90 Base) MCG/ACT INHALE ONE (1) TO TWO (2) PUFFS BY MOUTH DIRECTED EVERY 4 TO 6 HOURS NEEDED for 16 Active Vitamin D (Ergocalciferol) 86532 UNIT 1 capsule Orally Active BMI Digital Smart Scale - as directed daily for 365 days Asset ta September, Active Blood Pressure Cuff - as directed daily for 365 days Asset ta September, Active Furosemide 40 MG TAKE ONE (1) TABLET BY MOUTH ONCE DAILY for 90 Active Albuterol Sulfate (2.5 MG/3ML) 0.083% INHALE THREE (3) ML EVERY 4-6 HOURS BY NEBULIZATION ROUTE DIRECTED for 30 Needs appointment. Active Atorvastatin Calcium 80 MG TAKE ONE (1) TABLET BY MOUTH ONCE DAILY IN THE EVENING for 90 Active Allopurinol 100 MG TAKE ONE (1) TABLET BY MOUTH ONCE DAILY for 60 Active Advair Diskus 250-50 MCG/DOSE 1 puff Inhalation Twice a day Active Loratadine 10 MG 1 tablet Orally Once a day for 30 day(s) Active Raised Toilet Seat - as directed daily for 365 days September, Active clonazePAM 1 MG 1 tablet at bedtime Orally Once a day for 28 days May, Active Oxygen 2L as directed inhale 3L-4 L at rest PM adirected Active REASON FOR VISIT 1st Moderna Vacc MEDICAL (GENERAL) HISTORY Type Description Date Medical History hypertension Medical History Kidney failure- sees Workers Compensation Claims Specialist in [place]-stage 3 Medical History CHF Medical History COPD Surgical History cholecystectomy Surgical History cardiac stent 4-5 years ago Surgical History Ureteral Stent 4-5 years ago Surgical History colonoscopy-2008 Surgical History thoracentesis and ch est tube placed by Dr Alarcon at [facility] 01/14/2021 Hospitalization History surgical Hospitalization History pneumonia at the end of the yr not sure of date Hospitalization History [facility]-a/c resp martir lure, pneumothorax s/p chest tube, pleural effusion s/p thoracentesis, and a/c renal failure 01/12-01/21/2021 MENTAL STATUS No Information ASSESSMENTS Encounter Date Diagnosis Assessment Notes Treatment Notes Treatment Clinical Notes Jul, Encounter for immunization (ICD-10 - Z23) PLAN OF TREATMENT Medication Medication Name Sig Start Date Stop Date clonazePAM 1 MG 1 tablet at bedtime Orally Once a day for 28 days May, Albuterol Sulfate HFA 108 (9 0 Base) MCG/ACT INHALE ONE (1) TO TWO (2) PUFFS BY MOUTH DIRECTED EVERY 4 TO 6 HOURS NEEDED for 16 Insurance Providers Payer Name Payer Address Payer Phone Insured Name Patient Relationship to Insured Coverage Start Date Coverage End Date Subscriber Number Group Number [facility] 19 [address] [facility] [phone] Ivone Callejas Self - patient is the insured [id number] [employer] [address] [place] [address] Ivone Callejas Self - patient is the insured [id number] [facility] PART A [address] [facility] [phone] Ivone Callejas Self - patient is the insured [id number] MEDICATIONS ADMINISTERED Medication Instructions Date of Administration Dosag e DEXAMETHASONE 4MG/ML (PER 1 ML) Jul, 020 1 mL DEPO MEDROL 80 MG/ML Jul, 1 mL
--- OUTSIDE RECORDS SUMMARY | 2023-02-01 13:16 | XMS REPORT ---
Author Author [facility] ter of [facility] ter of [facility] Address Unknown Phone Unavailable Care Team Providers Care Associate Dentist Name Role Phone VIKY CHEATHAM Unavailable Janet Leong Unavailable Unavailable SVETLANA Page Unavailable Unavai lable PROBLEMS Type Condition ICD9-CM Code OKY75-AM Code Onset Dates Condition Status W/U Status Risk SNOMED Code Notes Problem Chronic kidney disease, stage 4 (severe) N18.4 confirmed 322569126 Problem Hypovitaminos is D E55.9 confirmed 65860955 Problem Chronic obstructive pulmonary disease, unspecified COPD type J44.9 confirmed 44146255 Problem Incisional hernia without mention of obstruction or gangrene K43.2 Nov, confirmed 268618669 81873 4_Migr ated Problem 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 confirmed 244348612 -94770 4_Migr ated Problem CKD (chronic kidney disease) stage 3, GFR 30-59 ml/min N18.3 Jan, confirmed 156759770 27255 4_Migr ated Problem Severe obesity (BMI 35.0-39.9) with comorbidity E66.01 Mar, confirmed 861241393 -75723 4_Migr ated Problem Dependence on supplemental oxygen Z99.81 confirmed 9622775651 07 Problem 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 confirmed 64246042 Problem Acute on chronic respiratory failure J96.20 confirmed 69502664 Problem Essential (primary) hypertension I10 confirmed 54659783 Problem Other iron deficiency anemias D50.8 confirmed 94502404 Problem Elevated fasting glucose R73.01 Jul, confirmed 031841919 -96389 4_Migr ated Problem Nocturnal hypoxia G47.34 07 Aug, 2016 confirmed 741250615 -26105 4_Migr ated Problem Essential hypertension I10 confirmed 74203883 Problem Sleep apnea G47.30 25 Dec, 2010 confirmed 57788595 -63891 4_Migr ated Problem Mixed hyperlipidemi a E78.2 confirmed 250230732 Problem Anxiety F41.9 confirmed 38736993 Problem Seasonal allergic rhinitis, unspecified trigger J30.2 confirmed 323904073 Problem Chronic gout of multiple sites, unspecified cause M1A.09X0 confirmed 98272399 Problem COPD exacerbation J44.1 confirmed 594936213 Problem Chronic bronchitis, unspecified chronic bronchitis type J42 confirmed 42798864 Problem Acute and chronic respiratory failure with hypoxia J96.21 confirmed 9525900148 7397628 Problem Oxygen dependent Z99.81 confirmed 6345202522 07 Problem Peripheral vascular disease I73.9 Jul, confirmed 115833744 -33193 4_Migr ated Problem Difficulty sleeping G47.9 confirmed 064531155 Problem Essential hypertension, benign I10 confirmed 7699607 82008 4_Migr ated Problem Tobacco use Z72.0 Jun, confirmed 617755086 -25259 4_Migr ated Problem Chronic obstructive pulmonary disease with (acute) exacerbation J44.1 confirmed 995180810 Problem Acute on chronic diastolic congestive heart failure I50.33 confirmed 563922782 Problem 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.0 confirmed 7845846579 9107 Problem Decreased breath sounds R06.89 confirmed 76703884 ALLERGIES No Known Allergies ENCOUNTERS from 1940 to 2023-01-10 Encounter Location Date Provider Diagnosis [facility] [address] [id number] [place] [address] Jan, VIKY CHEATHAM COPD exacerbation J44.1 IMMUNIZATIONS Vaccine Route Administration Date Status 2nd Dose HRSA MODERNA, COVID -19, 0.5mL IM Intramuscular August 23, 2020 Administered 1st Dose HRSA MODERNA, COVID -19, 0.5mL IM Intramuscular July 26, 2020 Administered PRIVATE FLUZONE HIGH DOSE QU AD 0.7ML (65 and UP) 2020 Unknown Jul 18, 2021 Refused 1st Booster MODERNA COVID-19 , mRNA, 0.25mL Unknown Jul 18, 2021 Refused influenza (history) Unknown Apr 07, 2016 Administ [...] other tobacco user? No REASON FOR REFERRAL from 1940 to 2023-01-10 Reason OT eval and treat fo r COPD exacerbation Diagnosis 1 COPD exacerbation (J 44.1) Referral Organization [facility] Referring Provider First Name VIKY Referring Provider Last Name CHAPARRITA Referring Provider Specialty Family Prac ana [facility] Provider [facility] Referred Provider Specialty Home Health Referral Priority Routine Referral Appointment Date 2021-01-28 General Notes Agnieszka White 01/27 02:52:52 PM >Per [facility], requesting OT order for patient's recent hospital discharge and COPD exacerbation. Carlo Chicas 01/28/2021 10:31:21 AM >fax ref check status Carlo Chicas 01/28/2021 12:53:58 PM >per [facility], they have this pat fax ref, admit date today MEDICATIONS Medication SIG (Take, Route, Frequency, Duration) Notes Start Date End Date Status Blood Pressure Cuff - as directed daily for 365 days Asset ta September, Active Acetaminophen 500 MG 1 tablet as needed Orally every 6 hrs Active PredniSONE (Pj) started by [facility] Nov, Active Advair Diskus 250-50 MCG/DOSE 1 puff Inhalation Twice a day Not-Taking Cefdinir 300 MG as directed Orally started by [facility] 2022 Active Atorvastatin Calcium 80 MG TAKE [...] day for 30 day(s) Originally ordered by Chair Post Machine Operator - Dr. Millan in 2020. Apr, [...] 365 days September, Active Vitamin D (Ergocalciferol) 54399 UNIT 1 capsule Orally Not-Taking Ferrous Sulfate [...] Asset ta September, Active REASON FOR VISIT order MEDICAL (GENERAL) HISTORY Type Description Date Medical History hypertension Medical History Kidney failure- sees Chair Post Machine Operator in [place]-stage 3 Medical History CHF Medical History COPD Surgical History cholecystectomy Surgical History cardiac stent 4-5 years ago Surgical History Ureteral Stent 4-5 years ago Surgical History colonoscopy-2008 Surgical History thoracentesis and ch est tube placed by Dr Alarcon at [facility] 01/14/2021 Hospitalization History surgical Hospitalization [...] Notes Treatment Notes Treatment Clinical Notes Jan, COPD exacerbation (ICD-10 - J44.1) PLAN OF TREATMENT Medication Medication Name Sig Start Date Stop Date dilTIAZem HCl ER Coated Bead s 300 MG TAKE ONE (1) CAPSULE BY MOUTH ONCE DAILY for 90 clonazePAM 1 MG 1 tablet at bedtime Orally Once a day for 28 days Dec, Referrals Referral Date Details 2021-01-28 2021-01-28, OT eval and treat for COPD exacerbation, [facility] Insurance Providers Payer Name Payer Address Payer Phone Insured Name Patient Relationship to Insured Coverage Start Date Coverage End Date Subscriber Number Group Number [facility] 19 [address] [facility] [phone] Ivone Callejas Self - patient is the insured [id number] [employer] [address] [facility] [phone] Ivone Callejas Self - patient is the insured [id number] [facility] PART A FI [address] [facility] [phone] Ivone Callejas Self - patient is the insured [id number] MEDICATIONS ADMINISTERED Medication Instructions Date of Administration Dosag e DEXAMETHASONE 4MG/ML (PER 1 ML) Jul, 020 1 mL DEPO MEDROL 80 MG/ML Jul, 1 mL
--- OUTSIDE RECORDS SUMMARY | 2023-02-01 13:16 | XMS REPORT ---
Author Author [facility] ter of [facility] ter of 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 confirmed 817909083 -4468718 4_Migr ated Problem Hypovitaminos is D E55.9 confirmed 63218101 Problem Severe obesity (BMI 35.0-39.9) with comorbidity E66.01 Mar, confirmed 503061712 -43133 4_Migr ated Problem Incisional hernia without mention of obstruction or gangrene K43.2 Nov, confirmed 617047075 -92361 4_Migr ated Problem Acute on chronic respiratory failure J96.20 confirmed 06999151 Problem Seasonal allergic rhinitis, unspecified trigger J30.2 confirmed 518335565 Problem Other iron deficiency anemias D50.8 confirmed 71095407 Problem 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 confirmed 43735832 Problem Nocturnal hypoxia G47.34 Aug, confirmed 323003612 -94264 4_Migr ated Problem CKD (chronic kidney disease) stage 3, GFR 30-59 ml/min N18.3 06 Jan, 2017 confirmed 345875474 -00357 4_Migr ated Problem Sleep apnea G47.30 Dec, confirmed 88695648 -72418 4_Migr ated Problem Elevated fasting glucose R73.01 Jul, confirmed 331276117 -87030 4_Migr ated Problem Anxiety F41.9 confirmed 75481361 Problem Essential hypertension I10 confirmed 76245688 Problem Mixed hyperlipidemi a E78.2 confirmed 625409133 Problem Chronic gout of multiple sites, unspecified cause M1A.09X0 confirmed 11399559 Problem Dependence on supplemental oxygen Z99.81 confirmed 5792510763 07 Problem COPD exacerbation J44.1 confirmed 798956323 Problem Chronic bronchitis, unspecified chronic bronchitis type J42 confirmed 94595963 Problem Decreased breath sounds R06.89 confirmed 53700859 Problem Tobacco use Z72.0 Jun, confirmed 728542076 -84254 4_Migr ated Problem Oxygen dependent Z99.81 confirmed 1150744694 07 Problem Peripheral vascular disease I73.9 Jul, confirmed 090606198 -46533 4_Migr ated Problem Essential hypertension, benign I10 confirmed 9154096 28003 4_Migr ated Problem Acute and chronic respiratory failure with hypoxia J96.21 confirmed 8496876697 2512969 Problem Chronic obstructive pulmonary disease with (acute) exacerbation J44.1 confirmed 024532701 Problem 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 Millan in 2020. Apr, Active [...] NEEDED for 16 Active Vitamin D (Ergocalciferol) 15868 UNIT 1 capsule Orally Active REASON FOR VISIT COVID-19 Vaccine Dose 2 MEDICAL (GENERAL) HISTORY Type Description Date Medical History hypertension Medical History Kidney failure- sees Spool Sorter in [place]-stage 3 Medical History CHF Medical History COPD Surgical History cholecystectomy Surgical History cardiac stent 4-5 years ago Surgical History Ureteral Stent 4-5 years ago Surgical History colonoscopy-2008 Surgical History thoracentesis and ch est tube placed by Dr Alarcon at [facility] 01/14/2021 Hospitalization History surgical Hospitalization History pneumonia at the end of the yr not sure of date Hospitalization History [facility]-a/c resp martir lure, pneumothorax s/p chest tube, pleural effusion s/p thoracentesis, and a/c renal failure 01/12-01/21/2021 MENTAL STATUS No Information ASSESSMENTS Encounter Date Diagnosis Assessment Notes Treatment Notes Treatment Clinical Notes Aug, Encounter for immunization (ICD-10 - Z23) PLAN [...] End Date Subscriber Number Group Number [facility] PART A [address] [facility] [phone] Ivone Callejas Self - patient is the insured [id number] [facility] 19 [address] [facility] [phone] Ivone Callejas Self - patient is the insured [id number] [facility] Ins Co [address] [facility] [phone] Ivone Callejas Self - patient is the insured [id number] MEDICATIONS ADMINISTERED Medication Instructions Date of Administration Dosag e DEPO MEDROL 80 MG/ML Jul, 1 mL DEXAMETHASONE 4MG/ML (PER 1 ML) Jul, 1 mL
--- OUTSIDE RECORDS SUMMARY | 2023-02-01 13:16 | XMS REPORT ---
Author Author [facility] ter of [facility] ter of [facility] Address Unknown Phone Unavailable Care Team Providers Care Supervisor Steffen House Name Role Phone DENISHA RAO Unavailable Salo Janet Unavailable Unavailable MARTELL PageMAN Unavailable Unavai lable PROBLEMS Type Condition ICD9-CM Code CYS88-YI Code Onset Dates Condition Status W/U Status Risk SNOMED Code Notes Problem Essential (primary) hypertension I10 confirmed 14976467 Problem Chronic obstructive pulmonary disease, unspecified COPD type J44.9 confirmed 60213873 Problem Chronic kidney disease, stage 4 (severe) N18.4 confirmed 897444678 Problem 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 confirmed 684575411 -3954461 4_Migr ated Problem Hypovitaminos is D E55.9 confirmed 52821146 Problem Severe obesity (BMI 35.0-39.9) with comorbidity E66.01 Mar, confirmed 941656840 -49713 4_Migr ated Problem Incisional hernia without mention of obstruction or gangrene K43.2 Nov, confirmed 549194331 -05320 4_Migr ated Problem Acute on chronic respiratory failure J96.20 confirmed 90290117 Problem Seasonal allergic rhinitis, unspecified trigger J30.2 confirmed 206960887 Problem Other iron deficiency anemias D50.8 confirmed 05040168 Problem 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 confirmed 63815481 Problem Nocturnal hypoxia G47.34 Aug, confirmed 693410825 -43110 4_Migr ated Problem CKD (chronic kidney disease) stage 3, GFR 30-59 ml/min N18.3 06 Jan, 2017 confirmed 006624715 -87888 4_Migr ated Problem Sleep apnea G47.30 Dec, confirmed 58943135 -15777 4_Migr ated Problem Elevated fasting glucose R73.01 Jul, confirmed 212867420 -61656 4_Migr ated Problem Anxiety F41.9 confirmed 63522734 Problem Essential hypertension I10 confirmed 89505935 Problem Mixed hyperlipidemi a E78.2 confirmed 612094215 Problem Chronic gout of multiple sites, unspecified cause M1A.09X0 confirmed 72971317 Problem Dependence on supplemental oxygen Z99.81 confirmed 3858705675 07 Problem COPD exacerbation J44.1 confirmed 423952917 Problem Chronic bronchitis, unspecified chronic bronchitis type J42 confirmed 86928941 Problem Decreased breath sounds R06.89 confirmed 49318893 Problem Tobacco use Z72.0 Jun, confirmed 361774208 -75846 4_Migr ated Problem Oxygen dependent Z99.81 confirmed 4275521719 07 Problem Peripheral vascular disease I73.9 Jul, confirmed 631055781 -56951 4_Migr ated Problem Essential hypertension, benign I10 confirmed 1755838 -18159 4_Migr ated Problem Acute and chronic respiratory failure with hypoxia J96.21 confirmed 8044457414 6345642 Problem Chronic obstructive pulmonary disease with (acute) exacerbation J44.1 confirmed 986071453 Problem 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.0 confirmed 2289657065 9107 Problem Acute on chronic diastolic congestive heart failure I50.33 confirmed 100642859 ALLERGIES No Known Allergies ENCOUNTERS from 1940 to 2022-05-22 Encounter Location Date Provider Diagnosis [facility] [address] [id number] [address] Jun, DENISHADONIS HORANE Essential hypertensi on I10 IMMUNIZATIONS Vaccine Route Administration Date Status 1st [...] days Asset ta September, Active Calcitriol 0.25 Mon/Sun/Sun Ac tive Blood Pressure Cuff - as [...] for more refills. Active Vitamin D (Ergocalciferol) 36954 UNIT 1 capsule Orally Active Atorvastatin Calcium [...] day for 30 day(s) Originally ordered by Funeral Prearrangement Counselor - Dr. Millan in 2020. 21 Apr, 2021 Active Fluticasone-Salmete rol 115-21 MCG/ACT 2 puffs Inhalation Twice a day need refill Active Oxygen 2L as directed inhale 3L-4 L at rest PM adirected Active REASON FOR VISIT Rx refill MEDICAL (GENERAL) HISTORY Type Description Date Medical History hypertension Medical History Kidney failure- sees Funeral Prearrangement Counselor in [place]-stage 3 Medical History CHF Medical History COPD Surgical History cholecystectomy Surgical History cardiac stent 4-5 years ago Surgical History Ureteral Stent 4-5 years ago Surgical History colonoscopy-2008 Surgical History thoracentesis and ch est tube placed by Dr Alarcon at [facility] 01/14/2021 Hospitalization History surgical Hospitalization History pneumonia at the end of the yr not sure of date Hospitalization History [facility]-a/c resp martir lure, pneumothorax s/p chest tube, pleural effusion s/p thoracentesis, and a/c renal failure 01/12-01/21/2021 MENTAL STATUS No Information ASSESSMENTS Encounter Date Diagnosis Assessment Notes Treatment Notes Treatment Clinical Notes Jun, Essential hypertension (ICD-10 - I10) PLAN OF TREATMENT No Information Insurance Providers Payer Name Payer Address Payer Phone Insured Name Patient Relationship to Insured Coverage Start Date Coverage End Date Subscriber Number Group Number [employer] [address] [facility] [phone] Ivone Callejas Self - patient is the insured [id number] [facility] 19 [address] [facility] [phone] Ivone Callejas Self - patient is the insured [id number] [facility] PART A [address] [facility] [phone] Ivone Callejas Self - patient is the insured [id number] MEDICATIONS ADMINISTERED Medication Instructions Date of Administration Dosag e DEXAMETHASONE 4MG/ML (PER 1 ML) Jul, 1 mL DEPO MEDROL 80 MG/ML Jul, 1 mL
--- OUTSIDE RECORDS SUMMARY | 2023-02-01 13:16 | XMS REPORT ---
Author Author [facility] ter of [facility] ter of [facility] Address Unknown Phone Unavailable Care Team Providers Care Linen Worker Name Role Phone DENISHA RAO Unavailable Salo Janet Unavailable Unavailable SVETLANA Page Unavailable Unavai lable PROBLEMS Type Condition ICD9-CM Code KZO98-WN Code Onset Dates Condition Status W/U Status Risk SNOMED Code Notes Problem Chronic kidney disease, stage 4 (severe) N18.4 confirmed 162939428 Problem Hypovitaminos is D E55.9 confirmed 32948116 Problem Chronic obstructive pulmonary disease, unspecified COPD type J44.9 confirmed 64041187 Problem Incisional hernia without mention of obstruction or gangrene K43.2 Nov, confirmed 570163283 90247 4_Migr ated Problem 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 confirmed 570839450 -93906 4_Migr ated Problem CKD (chronic kidney disease) stage 3, GFR 30-59 ml/min N18.3 Jan, confirmed 793447417 72900 4_Migr ated Problem Severe obesity (BMI 35.0-39.9) with comorbidity E66.01 Mar, confirmed 407277176 -65452 4_Migr ated Problem Dependence on supplemental oxygen Z99.81 confirmed 9683447785 07 Problem 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 confirmed 44339987 Problem Acute on chronic respiratory failure J96.20 confirmed 42677610 Problem Essential (primary) hypertension I10 confirmed 18082338 Problem Other iron deficiency anemias D50.8 confirmed 06360167 Problem Elevated fasting glucose R73.01 Jul, confirmed 180294834 -51136 4_Migr ated Problem Nocturnal hypoxia G47.34 07 Aug, 2016 confirmed 780672741 -04256 4_Migr ated Problem Essential hypertension I10 confirmed 64332801 Problem Sleep apnea G47.30 25 Dec, 2010 confirmed 31662454 -35858 4_Migr ated Problem Mixed hyperlipidemi a E78.2 confirmed 033990611 Problem Anxiety F41.9 confirmed 96624882 Problem Seasonal allergic rhinitis, unspecified trigger J30.2 confirmed 479923336 Problem Chronic gout of multiple sites, unspecified cause M1A.09X0 confirmed 87456419 Problem COPD exacerbation J44.1 confirmed 422909010 Problem Chronic bronchitis, unspecified chronic bronchitis type J42 confirmed 60347489 Problem Acute and chronic respiratory failure with hypoxia J96.21 confirmed 0567953506 1074418 Problem Oxygen dependent Z99.81 confirmed 0665534715 07 Problem Peripheral vascular disease I73.9 Jul, confirmed 428026138 -60813 4_Migr ated Problem Difficulty sleeping G47.9 confirmed 608554293 Problem Essential hypertension, benign I10 confirmed 7225062 08602 4_Migr ated Problem Tobacco use Z72.0 Jun, confirmed 988825365 -33890 4_Migr ated Problem Chronic obstructive pulmonary disease with (acute) exacerbation J44.1 confirmed 898382679 Problem Acute on chronic diastolic congestive heart failure I50.33 confirmed 274659797 Problem 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.0 confirmed 2496841842 9107 Problem Decreased breath sounds R06.89 confirmed 13648711 ALLERGIES No Known Allergies ENCOUNTERS from 1940 to 2022-11-28 Encounter Location Date Provider Diagnosis [facility] [address] [id number] [place] [address] Dec, DENISHA RAO Anxiety F41.9 IMMUNIZATIONS Vaccine [...] UP) 2020 Unknown Jul 18, 2021 Refused SOCIAL HISTORY [...] Duration) Notes Start Date End Date Status dilTIAZem HCl ER Coated Beads 300 MG TAKE ONE (1) CAPSULE BY MOUTH ONCE DAILY for 90 Active Calcitriol 0.25 Sun/Sun/Sun Ac tive Raised Toilet Seat - as directed daily for 365 days September, Active Coreg 6.25 MG 1 tablet with food Orally Twice a day for 30 day(s) Originally ordered by Jig Builder - Dr. Millan in 2020. Apr, Active Allopurinol 100 MG TAKE ONE (1) TABLET BY MOUTH ONCE DAILY for 30 Active Advair Diskus 250-50 MCG/DOSE 1 puff Inhalation Twice a day Active Fluticasone-Salmete rol 115-21 MCG/ACT 2 puffs Inhalation Twice a day need refill Active Furosemide 40 MG 1 tablet Orally Once a day for 90 days Active BMI Digital Smart Scale - as directed daily for 365 days Asset ta September, Active Oxygen 2L as directed inhale 3L-4 L at rest PM adirected Active Albuterol Sulfate HFA 108 (90 Base) MCG/ACT INHALE ONE (1) TO TWO (2) PUFFS BY MOUTH DIRECTED EVERY 4 TO 6 HOURS NEEDED for 16 Active Vitamin D (Ergocalciferol) 07713 UNIT 1 capsule Orally Active Atorvastatin Calcium 80 MG TAKE ONE (1) TABLET BY MOUTH ONCE DAILY IN THE EVENING for 90 Active Blood Pressure Cuff - as directed daily for 365 days Asset ta September, Active Albuterol Sulfate (2.5 MG/3ML) 0.083% INHALE THREE (3) ML EVERY 4-6 [address]RS BY NEBULIZATION ROUTE DIRECTED for 30 Needs appointment. Active Loratadine 10 MG 1 tablet Orally Once a day for 30 day(s) Active clonazePAM 1 MG 1 tablet at bedtime Orally Once a day for 28 days Do Not fill until 11/01/22 Oct, Active REASON FOR VISIT Controlled Med Refill 12/20 MEDICAL (GENERAL) HISTORY Type Description Date Medical History hypertension Medical History Kidney failure- sees Jig Builder in [place]-stage 3 Medical History CHF Medical History COPD Surgical History cholecystectomy Surgical History cardiac stent 4-5 years ago Surgical History Ureteral Stent 4-5 years ago Surgical History colonoscopy-2008 Surgical History thoracentesis and ch est tube placed by Dr Alarcon at [facility] 01/14/2021 Hospitalization History surgical Hospitalization History pneumonia at the end of the yr not sure of date Hospitalization History [facility]-a/c resp martir lure, pneumothorax s/p chest tube, pleural effusion s/p thoracentesis, and a/c renal failure 01/12-01/21/2021 MENTAL STATUS No Information ASSESSMENTS Encounter Date Diagnosis Assessment Notes Treatment Notes Treatment Clinical Notes Dec, Anxiety (ICD-10 - F41.9) PLAN OF TREATMENT Next Appt Details Provider Name:VIKY CHEATHAM, 2 023-07-17 10:40:00 AM, [address] [place], [address], Insurance Providers Payer Name Payer Address Payer Phone Insured Name Patient Relationship to Insured Coverage Start Date Coverage End Date Subscriber Number Group Number [employer] [address] [facility] [phone] Ivone Callejas Self - patient is the insured [id number] [facility] 19 [address] [facility] [phone] Ivone Callejas Self - patient is the insured [id number] [facility] PART A [address] [facility] [phone] Ivone Callejas Self - patient is the insured [id number] MEDICATIONS ADMINISTERED Medication Instructions Date of Administration Dosag e DEXAMETHASONE 4MG/ML (PER 1 ML) Jul, 020 1 mL DEPO MEDROL 80 MG/ML Jul, 1 mL
--- NOTE | 2023-02-01 13:34 | Physical Therapy Evaluation ---
PT Evaluation-General Medical Diagnosis Admission Date Feb 01, 2023 at 12:45 Medical Diagnosis: CHF, Debility Onset Date: Feb 01, 2023 Therapy Diagnosis Therapy Diagnosis: Gait deficit, strength deficit Height/Weight Weight (Pounds): 205 Weight (Ounces): 8.0 Precautions Precautions/Isolations: Fall Prevention, Standard Precautions Weight Bear Status Right Lower Extremity: Right Full Weight Bearing Left Lower Extremity: Left Full Weight Bearing Referral Physician: Dr. Burt Reason for Referral: Evaluation/Treatment Medical History Pertinent Medical History: CAD, COPD, HTN, Neuropathy, Smoking Social History Home: Current Living Status: Other Family Entry Into Home: Stairs With Railing PT Steps Into Home: 3 Patient lives in an addition onto her daughters house. Prior Prior Level of Function SCALE: Activities may be completed with or without assistive devices. 9-Rjjtehqlks-lszmuhu completes the activity by him/herself with no assistance from a helper. 5-Set-up or Clean-up Assistance-helper sets up or cleans up; patient completes activity. [place] assists only prior to or following the activity. 4-Supervision or Touching Assistance-helper provides verbal cues and/or touching/steadying and/or contact guard assistance as patient completes activity. Assistance may be provided throughout the activity or intermittently. 3-Partial/Moderate Assistance-helper does LESS THAN HALF the effort. [place] lifts, holds or supports trunk or limbs, but provides less than half the effort. 2-Substantial/Maximal Assistance-helper does MORE THAN HALF the effort. [place] lifts or holds trunk or limbs and provides more than half the effort. 0-Yxtmxdauh-qofzyn does ALL the effort. Patient does none of the effort to complete the activity. Or, the assistance of 2 or more helpers is required for the patient to complete the activity. If activity was not attempted, code reason: 7-Patient Refused. 9-Not Applicable-not attempted and the patient did not perform the activity before the current illness, exacerbation or injury. 10-Not Attempted due to Environmental Limitations-(lack of equipment, weather restraints, etc.). 88-Not Attempted due to Medical Conditions or Safety Concerns. Bed Mobility: 6 Transfers (B,C,W/C): 6 Gait: 6 Stairs: 6 Indoor Mobility (Ambulation): Independent Stairs: Independent Prior Devices Use: Walker PT Evaluation-Current Subjective Patient sitting in the chair upon PT arrival, agreeable to treatment. Rates pain at 0/10 currently. Pain Section J - Health Conditions 1. Rarely or not at all 2. Occasionally 3. Frequently 4. Almost constantly 8. Unable to answer Pain Effect on Sleep: 1 Pain Interference with Therapy: 1 Pain Interference w/Day-to-Day: 1 Objective Patient Orientation: Person, Place, Situation Attachments: Oxygen ROM/Strength ROM Lower Extremities WFLs BLEs all planes Strength Lower Extremities 3+/5 BLEs all planes Sensory Vision: Functional Hearing: Functional Sensation Right Lower Extremit: Intact Sensation Left Lower Extremity: Intact Transfers Roll Left & Right (QC): 3 Sit to Lying (QC): 3 Lying to Sitting/Side of Bed(Q: 2 Sit to Stand (QC): 3 Chair/Pet-qe-Bsaax Xfer(QC): 4 Toilet Transfer (QC): 4 Car Transfer (QC): 88 Gait Does the Patient Walk?: Yes Mode of Locomotion: Walk Anticipated Mode of Locomotion: Walk Walk 10 feet (QC): 4 Walk 50 ft with 2 Turns(QC): 88 Walk 150 ft (QC): 88 Walking 10ft/uneven surface-QC: 88 Distance: 40' Gait Assistive Device: FWW Wheelchair Training Does the Pt Use a Wheelchair?: No Wheel 50 ft with 2 turns (QC): 9 Wheel 150 ft (QC): 9 Stairs 1 Step (curb) (QC): 88 4 Steps (QC): 88 12 Steps (QC): 88 Balance Sitting Static: Fair Sitting Dynamic: Fair Standing Static: Fair Standing Dynamic: Poor Picking up an Object (QC): 88 Assessment/Needs Patient tolerated treatment fair however reports prior to ambulating "I can't go far." Patient performs all bed mobility and transfers with min to max A. Patient ambulates 40 feet with FWW, with 4 L O2, with CGA and verbal cues for safety, progression, posture and conservation of energy. Patient in bed post treatment with all needs met, nursing notified, call light in hand. Rehab Potential: Fair PT Long-Term Goals Legal Collector Goals PT Legal Collector Goals Time Frame: Feb 17, 2023 Roll Left to Right (QC): 6 Sit to Lying (QC): 6 Lying-Sitting on Side/Bed(QC): 6 Sit to Stand (QC): 6 Chair/Enz-yx-Lctbb Xfer(QC): 6 Toilet/Commode Transfer (QC): 6 Car Transfer (QC): 4 Does the Patient Walk: Yes Walk 10 feet (QC): 6 Walk 10ft-Uneven Surface(QC): 6 Walk 50ft with 2 Turns (QC): 6 Walk 150 ft (QC): 4 Does the Pt use WC or Scooter?: No Wheel 50 feet with 2 turns (QC: 9 Wheel 150 feet: 9 1 Step (curb) (QC): 4 4 Steps (QC): 4 12 Steps (QC): 9 Picking up an Object (QC): 4 PT Plan Problem List Problem List: Activity Tolerance, Functional Strength, Safety, Balance, Gait, Transfer, Bed Mobility, ROM Treatment/Plan Treatment Plan: Continue Plan of Care Treatment Plan: Bed Mobility, Education, Functional Activity Faraz, Functional Strength, Group Therapy, Gait, Safety, Therapeutic Exercise, Transfers Treatment Duration: Feb 17, 2023 Frequency: 6 times per week Estimated Hrs Per Day: .25 hour per day Patient and/or Family Agrees t: Yes Safety Risks/Education Patient Education: Gait Training, Transfer Techniques Teaching Recipient: Patient Teaching Methods: Demonstration, Discussion Response to Teaching: Verbalize Understanding, Return Demonstration Time Time In: 1305 Time Out: 1330 DATE: Feb 01, 2023 Total Billed Treatment Time: 25 Total Billed Treatment Visit, ELIGIO (10'), IDAZ (15') SOHAIL HAWK PT Feb 01, 2023 13:34
[2023-02-01] MEDS: hydrALAZINE 25 MG TABLET PO SCH ×2 (14:26→20:30)
[2023-02-01] MEDS: ENOXAPARIN 30 MG/0.3 ML SYRINGE SQ SCH (14:58)
[2023-02-01] MEDS: oxyCODONE IMMEDIATE RELEASE 5 MG TABLET PO PRN (15:03)
[2023-02-01] MEDS: inSUlin ASPART 1 UNIT/0.01 ML (PER UNIT) SC SCH ×2 (16:52→20:07)
[2023-02-01] MEDS: FUROSEMIDE 40 MG TABLET PO SCH (16:53)
[2023-02-01 17:58] VITALS: BP 163/76
[2023-02-01] MEDS: carvediloL 6.25 MG TABLET PO SCH (18:17)
[2023-02-01] MEDS: RT-Ipratropium/Albuterol NEB 3 ML VIAL INH SCH (18:19)
[2023-02-01] MEDS: LACTULOSE SYRUP 10GM/15ML 30ML UDC PO SCH (20:30)
[2023-02-01] MEDS: dilTIAZem ER 300 MG CAPSULE PO SCH (20:30)
[2023-02-01] MEDS: SENNOSIDES 8.6 MG TABLET PO SCH (20:30)
[2023-02-01] MEDS: inSUlin DETERMIR 1 UNIT/0.01 ML (CHARGE PER UNIT) SQ SCH (20:30)
[2023-02-01] MEDS: MICONAZOLE 2% POWDER 90 GM TOP SCH (20:31)
[2023-02-01] MEDS: clonazePAM 1 MG TABLET PO SCH (20:36)
[2023-02-02 06:06] LABS: HEMATOCRIT 41 % (35-52); HEMOGLOBIN 13.5 g/dL (11.5-16.0); MEAN CORPUSCULAR HEMOGLOBIN 30 pg (25-34); MEAN CORPUSCULAR HGB CONC 33 g/dL (32-36); MEAN CORPUSCULAR VOLUME 93 fL (80-99); MEAN PLATELET VOLUME 10.2 fL (9.0-12.2); PLATELET COUNT 152 10^3/uL (130-400); WHITE BLOOD COUNT 9.4 10^3/uL (4.3-11.0)
[2023-02-02] MEDS: inSUlin ASPART 1 UNIT/0.01 ML (PER UNIT) SC SCH ×4 (06:11→21:01)
[2023-02-02] MEDS: FUROSEMIDE 40 MG TABLET PO SCH ×2 (06:11→16:12)
[2023-02-02 06:28] LABS: ALBUMIN 3.1 GM/DL (3.2-4.5); BILIRUBIN,TOTAL 0.7 MG/DL (0.1-1.0); CALCIUM 8.5 MG/DL (8.5-10.1); CREATININE SERUM 2.02 MG/DL (0.60-1.30); POTASSIUM 5.2 MMOL/L (3.6-5.0); TOTAL PROTEIN 5.4 GM/DL (6.4-8.2)
[2023-02-02] MEDS: RT-Ipratropium/Albuterol NEB 3 ML VIAL INH SCH ×4 (07:06→18:45)
[2023-02-02 07:33] VITALS: BP 180/80
[2023-02-02] MEDS: ALLOPURINOL 100 MG TABLET PO SCH (08:08)
[2023-02-02] MEDS: hydrALAZINE 25 MG TABLET PO SCH ×3 (08:09→21:01)
[2023-02-02] MEDS: LORATADINE 10 MG TABLET PO SCH (08:09)
[2023-02-02] MEDS: carvediloL 6.25 MG TABLET PO SCH ×2 (08:09→17:44)
[2023-02-02] MEDS: LACTULOSE SYRUP 10GM/15ML 30ML UDC PO SCH ×2 (08:10→21:01)
[2023-02-02] MEDS: inSUlin DETERMIR 1 UNIT/0.01 ML (CHARGE PER UNIT) SQ SCH ×3 (08:10→21:01)
[2023-02-02] MEDS: SENNOSIDES 8.6 MG TABLET PO SCH ×2 (08:39→21:01)
[2023-02-02] MEDS: MICONAZOLE 2% POWDER 90 GM TOP SCH ×2 (08:50→21:02)
[2023-02-02] MEDS ORDERED: dexAMETHasone INJ 4 MG/ML SDV IV SCH (09:00)
--- NOTE | 2023-02-02 09:44 | Occupational Therapy Eval ---
OT Evaluation-General/PLF Medical Diagnosis Admission Date Feb 01, 2023 at 12:45 Medical Diagnosis: CHF, Debility Onset Date: Feb 01, 2023 Therapy Diagnosis Therapy Diagnosis: debility Height/Weight Weight (Pounds): 205 Weight (Ounces): 8.0 Precautions Precautions/Isolations: Fall Prevention, Standard Precautions Referral Physician: Dr. Burt Referral Reason: Activity Tolerance, Self Care, Evaluation/Treatment Medical History Pertinent Medical History: CAD, COPD, HTN, Neuropathy, Smoking Reviewed History: Yes (uses 4-5 02 liter at home) Social History Home: Current Living Status: Other Family Entry Into Home: Stairs With Railing Steps Into Home: 3 Lives w/ family in-law quarters attached to house ADL-Prior Level of Function SCALE: Activities may be completed with or without assistive devices. 1-Hkaddgrggy-czbqarw completes the activity by him/herself with no assistance from a helper. 5-Set-up or Clean-up Assistance-helper sets up or cleans up; patient completes activity. [place] assists only prior to or following the activity. 4-Supervision or Touching Assistance-helper provides verbal cues and/or touching/steadying and/or contact guard assistance as patient completes activity. Assistance may be provided throughout the activity or intermittently. 3-Partial/Moderate Assistance-helper does LESS THAN HALF the effort. [place] lifts, holds or supports trunk or limbs, but provides less than half the effort. 2-Substantial/Maximal Assistance-helper does MORE THAN HALF the effort. [place] lifts or holds trunk or limbs and provides more than half the effort. 9-Brgmbxlys-uqvcaw does ALL the effort. Patient does none of the effort to complete the activity. Or, the assistance of 2 or more helpers is required for the patient to complete the activity. If activity was not attempted, code reason: 7-Patient Refused. 9-Not Applicable-not attempted and the patient did not perform the activity before the current illness, exacerbation or injury. 10-Not Attempted due to Environmental Limitations-(lack of equipment, weather restraints, etc.). 88-Not Attempted due to Medical Conditions or Safety Concerns. DME/Equipment: Bath Chair, Grab Bars, Tub/Shower DME/Equipment Comments 4ww. standard toilet Drive Self: No OT Current Status Pain Numeric Pain Scale: 8 Location Body Site: Back Pain Description: Chronic Mental Status/Objective Patient Orientation: Person, Place ([facility]), Time (40, Feb 01), Situation Attachments: Oxygen (3 liters at rest, 4 liters w/ ambulation. Patient de monstrated exagerated forced exhale, ) Current Hearing Aids: No (not here, hard of hearing) Hand Dominance: Right Upper Extremity ROM Limited joint approximation d/r excessive soft tissue, unable to fully perform ROM for toilet BM hygiene Upper Extremity Coordination FMC WFLS, GMC fair+ Upper Extremity Strength +3/5 grossly ADL-Treatment ADL-Current Patient is strongly encouraged to ambulate to bathroom several times daily for bladder control and increasing tolerance to activity. Eating (QC): 6 Oral Hygiene (QC): 5 Shower/Bathe Self (QC): 3 Upper Body Dressing (QC): 4 Lower Body Dressing (QC): 3 On/Off Footwear (QC): 2 Toileting Hygiene (QC): 3 Education OT Patient Education: Disease process, Exercise program, Modified ADL techniques, Progress toward Goal/Update tx plan, Purpose of tx/functional activ ities, Reviewed precautions, Rehab process, Safety issues, Transfer techniques, Use of adapted equipment Teaching Recipient: Patient Teaching Methods: Demonstration Response to Teaching: Reinforcement Needed BIMS CAM BIMS Expression of Ideas and Wants: Without Difficulty Understanding Verbal Content: Understands Brief Interview/Mental Status: Yes IRF FARNAZ BIMS: IRF FARNAZ BIMS Response (Comments) Value Repitition of Three Words Three 3 Recalls Socks Yes, No Cue Required 2 Recalls Blue Yes, No Cue Required 2 Recalls Bed Yes, No Cue Required 2 Year Correct 3 Month Accurate Within 5 Days 2 Day Correct 1 Total 15 Patient Normally Able to Recal: Current Session, That he/she in a hsp Memory/Recall Ability: Current Season CAM Mental Status Change/Baseline: 0 Inattention: 0 Disorganized thinkin Altered level of consciousness: 0 OT Staffing Recruiter Goals Care Home Goals Time Frame: Feb 16, 2023 Eating (QC): 6 Oral Hygiene (QC): 6 Toileting Hygiene (QC): 5 Shower/Bathe Self (QC): 4 Upper Body Dressing (QC): 5 Lower Body Dressing (QC): 4 On/Off Footwear (QC): 4 1=Demonstrate adherence to instructed precautions during ADL tasks. 2=Patient will verbalize/demonstrate understanding of assistive devices/modifications for ADL. 3=Patient will improve strength/tolerance for activity to enable patient to perform ADL's. OT Education/Plan Problem List/Assessment Assessment: Decreased Activ Tolerance, Decreased UE Strength, Impaired Coordina tion, Impaired Funct Balance, Impaired Self-Care Skills Discharge Recommendations Plan/Recommendations: Continue POC Therapy Discharge Recommendati: Post Acute OT Treatment Plan/Plan of Care Treatment,Training & Education: Yes Patient would benefit from OT for education, treatment and training to promote independence in ADL's, mobility, safety and/or upper extremity function for ADL's. Plan of Care: ADL Retraining, Concurrent Therapy, Functional Mobility, Group Exercise/Act as Ind, UE Funct Exercise/Act Treatment Duration: Feb 16, 2023 Frequency: At least 5 of 7 days/Wk (IRF) Estimated Hrs Per Day: .25 hour per day Agreement: Yes Rehab Potential: Fair Time Start Time: 09:30 Stop Time: 09:53 DATE: Feb 02, 2023 Total Time Billed (hr/min): 23 Billed Treatment Time OT RADHA [id number] CoTX for ambulation and safety / 02 FLORINA Falk OT Feb 02, 2023 09:44
--- NOTE | 2023-02-02 10:19 | Physical Therapy Daily Note ---
PT Daily Note-Current Subjective Patient reluctantly agrees to PT/OT cotreat. Pain Section J - Health Conditions 1. Rarely or not at all 2. Occasionally 3. Frequently 4. Almost constantly 8. Unable to answer Pain Effect on Sleep: 1 Pain Interference with Therapy: 1 Pain Interference w/Day-to-Day: 1 Mental Status Attachments: Oxygen Transfers SCALE: Activities may be completed with or without assistive devices. 4-Sscjpqhjqy-nnzzeub completes the activity by him/herself with no assistance from a helper. 5-Set-up or Clean-up Assistance-helper sets up or cleans up; patient completes activity. [place] assists only prior to or following the activity. 4-Supervision or Touching Assistance-helper provides verbal cues and/or touching/steadying and/or contact guard assistance as patient completes activity. Assistance may be provided throughout the activity or intermittently. 3-Partial/Moderate Assistance-helper does LESS THAN HALF the effort. [place] lifts, holds or supports trunk or limbs, but provides less than half the effort. 2-Substantial/Maximal Assistance-helper does MORE THAN HALF the effort. [place] lifts or holds trunk or limbs and provides more than half the effort. 0-Rlvxpegvc-fbayxy does ALL the effort. Patient does none of the effort to complete the activity. Or, the assistance of 2 or more helpers is required for the patient to complete the activity. If activity was not attempted, code reason: 7-Patient Refused. 9-Not Applicable-not attempted and the patient did not perform the activity before the current illness, exacerbation or injury. 10-Not Attempted due to Environmental Limitations-(lack of equipment, weather restraints, etc.). 88-Not Attempted due to Medical Conditions or Safety Concerns. Sit to Stand (QC): 4 Weight Bearing Right Lower Extremity: Right Full Weight Bearing Left Lower Extremity: Left Full Weight Bearing Gait Training Distance: 50' Walk 10 feet (QC): 4 Walk 50 ft with 2 Turns(QC): 4 Gait Assistive Device: FWW safe and functional gait sequence Assessment Patient appears to self limit with all functional mobility and adamantly declined to attempt to ambulate farther. Patient tolerates minimal activity. PT Resolution Agent Goals Resolution Agent Goals PT Resolution Agent Goals Time Frame: Feb 17, 2023 Roll Left & Right (QC): 6 Sit to Lying (QC): 6 Lying-Sitting on Side/Bed(QC): 6 Sit to Stand (QC): 6 Chair/Dik-zr-Rufwq Xfer(QC): 6 Toilet Transfer (QC): 6 Car Transfer (QC): 4 Does the Patient Walk: Yes Walk 10 feet (QC): 6 Walk 50ft with 2 Turns (QC): 6 Walk 150 ft (QC): 4 Walking 10ft on Uneven Surface: 6 1 Step (curb) (QC): 4 4 Steps (QC): 4 12 Steps (QC): 9 Picking up an Object (QC): 4 Does the Pt use WC or Scooter?: No Wheel 50 feet with 2 turns (QC: 9 Wheel 150 feet: 9 PT Plan Treatment/Plan Treatment Plan: Continue Plan of Care Treatment Plan: Bed Mobility, Education, Functional Activity Faraz, Functional Strength, Group Therapy, Gait, Safety, Therapeutic Exercise, Transfers Treatment Duration: Feb 17, 2023 Frequency: 6 times per week Estimated Hrs Per Day: .25 hour per day Patient and/or Family Agrees t: Yes Time Time In: 938 Time Out: 953 DATE: Feb 02, 2023 Total Billed Treatment Time: 15 Total Billed Treatment 1 visit FA 15 min (cotreat PT/OT) SHERRI HERMOSILLO PT Feb 02, 2023 10:19
--- NOTE | 2023-02-02 14:36 | Progress Note ---
Subjective Subjective/Events-last exam Pt states she is feeling a little better and that she has been up a little. She is sitting in recliner, on 3 lpm supplemental oxygen at this time. Objective Exam Last Set of Vital Signs Vital Signs Date Time Temp Pulse Resp B/P (MAP) Pulse Ox O2 Delivery O2 Flow Rate FiO2 02/02/23 14:03 94 Nasal Cannula 3.50 02/02/23 07:33 36.8 80 18 180/80 (113) Capillary Refill : I&O Intake and Output 02/02/23 00:00 Intake Total 840 ml Balance 840 ml Intake Oral 840 ml # Voids 1 # Bowel Movements 1 General: Alert, No Acute Distress Lungs: Other (ronchi) Heart: Regular Rate, No Murmurs Extremities: Other (trace edema) Neuro: Normal Speech Results/Procedures Lab Laboratory Tests 02/01/23 20:04: Glucometer 148H 02/02/23 05:40: White Blood Count 9.4, Red Blood Count 4.47, Hemoglobin 13.5, Hematocrit 41, Mean Corpuscular Volume 93, Mean Corpuscular Hemoglobin 30, Mean Corpuscular Hemoglobin Concent 33, Red Cell Distribution Width 14.6H, Platelet Count 152, Mean Platelet Volume 10.2, Sodium Level 136, Potassium Level 5.2H, Chloride Level 94L, Carbon Dioxide Level 35H, Anion Gap 7, Blood Urea Nitrogen 78H, Creatinine 2.02H, Estimat Glomerular Filtration Rate 24, BUN/Creatinine Ratio 39, Glucose Level 65L, Calcium Level 8.5, Corrected Calcium 9.2, Total Bilirubin 0.7, Aspartate Amino Transf (AST/SGOT) 23, Alanine Aminotransferase (ALT/SGPT) 43, Alkaline Phosphatase 89, Total Protein 5.4L, Albumin 3.1L 02/02/23 06:10: Glucometer 60*L 02/02/23 06:47: Glucometer 93 02/02/23 11:28: Glucometer 98 Assessment/Plan Assessment/Plan Assessment & Plan Acute on chronic respiratory failure requiring Vapotherm initially, down to 3 lpm supplemental O2 by nasal cannula. Suspect secondary to CHF exacerbation, possible pneumonia as below and COPD exacerbation. Acute on chronic congestive heart failure- appreciate Cardiology recom mendations. Pleural effusion- s/p thoracentesis, serum LDH not obtained, unable to calculate Light's criteria, gram stain negative for bacteria, culture negative to date. On cefepime Chronic kidney disease Hyperkalemia- significantly increased 01/31, kayexalate given, discussed with her and family if we cannot manage with medication, next step may be dialysis and they are open to transfer for that and continued aggressive care if needed. Improved 02/01, continue close monitoring and prn treatments. 02/02 stable mild elevation NSTEMI likely type II [place] COPD with exacerbation- on dexamethasone, dose decreased 01/31, will d/c today. Hyperglycemia- suspect secondary to steroids, decreased dose as above BCx with growth that is likely skin normal dm RICKI ALCARAZ MD Feb 02, 2023 14:36
[2023-02-02] MEDS: ENOXAPARIN 30 MG/0.3 ML SYRINGE SQ SCH (16:12)
--- NOTE | 2023-02-02 16:37 | Cardiology Progress Note ---
Subjective Date Seen by Provider: Feb 02, 2023 Time Seen by Provider: 13:15 Subjective/Events-last exam No acute concerns. Patient doing reasonably well. Creatinine 2.0- has ranged from 1.7-2.5. Systolic blood pressures 160s to 180s over 80s Objective-Cardiology Exam Last Set of Vital Signs Vital Signs 02/02/23 02/02/23 07:33 14:03 Temp 36.8 Pulse 80 Resp 18 B/P (MAP) 180/80 (113) Pulse Ox 94 O2 Delivery Nasal Cannula O2 Flow Rate 3.50 I&O Intake and Output 02/02/23 00:00 Intake Total 840 ml Balance 840 ml Intake Oral 840 ml # Voids 1 # Bowel Movements 1 General: Alert, No Acute Distress Lungs: Other (ronchi) Heart: Regular Rate, No Murmurs Extremities: Other (trace edema) Neuro: Normal Speech Other physical findings Gen: NAD, resting comfortably Neck: No bruits, no JVD Lungs: Diminished breath sounds with occasional rhonchi noted. No wheezing or rales. CV: nl s1/s2; no murmurs gallops or rubs. Abd: + BS, soft NT,ND; no hepatosplenomegaly. Ext: 2+ radial and DP pulses; no c-c-e, wwp Results Lab Laboratory Tests 02/02/23 05:40 A/P-Cardiology Assessment/Plan ##Hyperkalemia: Potassium 5.2 today. Status post treatments with Kayexalate in the past. Not on any agents that could worsen potassium levels. ##Hypertension: Blood pressures 160s to 180s over 80s. Recommend increasing Coreg to 12.5 mg p.o. twice daily. Continue diltiazem 300. Heart rates in the 80s. Low threshold to add on another agent such as nifedipine. ##Renal insufficiency: Creatinine 2.0. Has ranged from 1.7-2.5. JOSEPH nephrotoxic agents. ##Disposition: We will continue to follow along in the periphery. Over the weekend, please call with questions should they arise. TAY ESPINOZA MD Feb 02, 2023 16:37
[2023-02-02 19:20] VITALS: BP 144/73
[2023-02-02] MEDS: dilTIAZem ER 300 MG CAPSULE PO SCH (21:01)
[2023-02-02] MEDS: clonazePAM 1 MG TABLET PO SCH (21:01)
[2023-02-02] MEDS: oxyCODONE IMMEDIATE RELEASE 5 MG TABLET PO PRN (21:01)
[2023-02-03 05:54] LABS: HEMATOCRIT 43 % (35-52); HEMOGLOBIN 13.6 g/dL (11.5-16.0); MEAN CORPUSCULAR HEMOGLOBIN 29 pg (25-34); MEAN CORPUSCULAR HGB CONC 32 g/dL (32-36); MEAN CORPUSCULAR VOLUME 92 fL (80-99); MEAN PLATELET VOLUME 10.5 fL (9.0-12.2); PLATELET COUNT 153 10^3/uL (130-400); WHITE BLOOD COUNT 10.5 10^3/uL (4.3-11.0)
[2023-02-03 06:08] LABS: CALCIUM 8.5 MG/DL (8.5-10.1); CREATININE SERUM 1.88 MG/DL (0.60-1.30); POTASSIUM 5.2 MMOL/L (3.6-5.0)
[2023-02-03] MEDS: inSUlin ASPART 1 UNIT/0.01 ML (PER UNIT) SC SCH ×4 (06:11→20:35)
[2023-02-03] MEDS: FUROSEMIDE 40 MG TABLET PO SCH ×2 (06:48→17:02)
[2023-02-03 07:01] VITALS: BP 144/73
[2023-02-03] MEDS: RT-Ipratropium/Albuterol NEB 3 ML VIAL INH SCH ×2 (07:14→21:06)
[2023-02-03 07:40] VITALS: BP 178/81
[2023-02-03] MEDS: LACTULOSE SYRUP 10GM/15ML 30ML UDC PO SCH ×2 (08:29→21:02)
[2023-02-03] MEDS: inSUlin DETERMIR 1 UNIT/0.01 ML (CHARGE PER UNIT) SQ SCH ×2 (08:30→21:04)
[2023-02-03] MEDS: hydrALAZINE 25 MG TABLET PO SCH ×3 (08:30→21:03)
[2023-02-03] MEDS: SENNOSIDES 8.6 MG TABLET PO SCH ×2 (08:30→21:03)
[2023-02-03] MEDS: ALLOPURINOL 100 MG TABLET PO SCH (08:30)
[2023-02-03] MEDS: LORATADINE 10 MG TABLET PO SCH (08:30)
[2023-02-03] MEDS: carvediloL 6.25 MG TABLET PO SCH ×2 (08:30→17:02)
[2023-02-03] MEDS: MICONAZOLE 2% POWDER 90 GM TOP SCH ×2 (08:31→21:04)
--- NOTE | 2023-02-03 10:50 | Physical Therapy Progress Note ---
Therapy Progress Note Pt found seated in recliner /c family present. Pt refuses PT treatment this AM due to family visiting. MARK ANTHONY QUIGLEY TUMBLING INSTRUCTOR Feb 03, 2023 10:50
[2023-02-03] MEDS: ENOXAPARIN 30 MG/0.3 ML SYRINGE SQ SCH (14:13)
[2023-02-03 19:38] VITALS: BP 152/72
[2023-02-03] MEDS: clonazePAM 1 MG TABLET PO SCH (21:02)
[2023-02-03] MEDS: dilTIAZem ER 300 MG CAPSULE PO SCH (21:02)
[2023-02-04] MEDS: inSUlin ASPART 1 UNIT/0.01 ML (PER UNIT) SC SCH ×4 (05:37→20:43)
[2023-02-04] MEDS: FUROSEMIDE 40 MG TABLET PO SCH ×2 (05:47→16:15)
[2023-02-04 08:13] VITALS: BP 149/73
[2023-02-04] MEDS: LACTULOSE SYRUP 10GM/15ML 30ML UDC PO SCH ×2 (08:52→20:43)
[2023-02-04] MEDS: hydrALAZINE 25 MG TABLET PO SCH ×3 (08:52→20:43)
[2023-02-04] MEDS: carvediloL 6.25 MG TABLET PO SCH ×2 (08:52→16:15)
[2023-02-04] MEDS: LORATADINE 10 MG TABLET PO SCH (08:52)
[2023-02-04] MEDS: ALLOPURINOL 100 MG TABLET PO SCH (08:52)
[2023-02-04] MEDS: inSUlin DETERMIR 1 UNIT/0.01 ML (CHARGE PER UNIT) SQ SCH ×2 (08:52→20:44)
[2023-02-04] MEDS: MICONAZOLE 2% POWDER 90 GM TOP SCH ×2 (08:53→20:44)
[2023-02-04] MEDS: SENNOSIDES 8.6 MG TABLET PO SCH ×2 (08:54→20:43)
[2023-02-04] MEDS: RT-Ipratropium/Albuterol NEB 3 ML VIAL INH SCH ×2 (09:18→19:05)
[2023-02-04] MEDS: ENOXAPARIN 30 MG/0.3 ML SYRINGE SQ SCH (16:17)
[2023-02-04 19:24] VITALS: BP 148/73
[2023-02-04] MEDS: clonazePAM 1 MG TABLET PO SCH (20:43)
[2023-02-04] MEDS: dilTIAZem ER 300 MG CAPSULE PO SCH (20:43)
[2023-02-05] MEDS: inSUlin ASPART 1 UNIT/0.01 ML (PER UNIT) SC SCH ×4 (06:01→19:43)
[2023-02-05 06:18] LABS: BASOPHILS % (AUTO) 0 % (0-10); HEMATOCRIT 42 % (35-52); MEAN CORPUSCULAR VOLUME 93 fL (80-99)
[2023-02-05 06:20] LABS: EOSINOPHILS # (AUTO) 0.4 10^3/uL (0.0-0.3); EOSINOPHILS % (AUTO) 3 % (0-10); HEMOGLOBIN 13.6 g/dL (11.5-16.0); LYMPHOCYTES # (AUTO) 0.7 10^3/uL (1.0-4.0); LYMPHOCYTES % (AUTO) 6 % (12-44); MEAN CORPUSCULAR HEMOGLOBIN 30 pg (25-34); MEAN CORPUSCULAR HGB CONC 32 g/dL (32-36); MEAN PLATELET VOLUME 10.8 fL (9.0-12.2); MONOCYTES # (AUTO) 0.6 10^3/uL (0.0-1.0); MONOCYTES % (AUTO) 5 % (0-12); NEUTROPHILS # (AUTO) 10.4 10^3/uL (1.8-7.8); NEUTROPHILS % (AUTO) 85 % (42-75); PLATELET COUNT 118 10^3/uL (130-400); WHITE BLOOD COUNT 12.2 10^3/uL (4.3-11.0)
[2023-02-05] MEDS: FUROSEMIDE 40 MG TABLET PO SCH ×2 (06:38→16:23)
[2023-02-05 06:44] LABS: BILIRUBIN,TOTAL 0.7 MG/DL (0.1-1.0); CALCIUM 8.4 MG/DL (8.5-10.1); CREATININE SERUM 1.77 MG/DL (0.60-1.30); POTASSIUM 4.3 MMOL/L (3.6-5.0); TOTAL PROTEIN 5.2 GM/DL (6.4-8.2)
[2023-02-05 06:58] LABS: EOSINOPHILS % (MANUAL) 5 %; LYMPHOCYTES % (MANUAL) 4 %; MONOCYTES % (MANUAL) 3 %; NEUTROPHILS % (MANUAL) 88 %; RBC MORPH NORMAL
[2023-02-05] MEDS: RT-Ipratropium/Albuterol NEB 3 ML VIAL INH SCH ×2 (07:23→21:48)
[2023-02-05 08:08] VITALS: BP 167/72
[2023-02-05] MEDS: hydrALAZINE 25 MG TABLET PO SCH ×3 (08:51→19:38)
[2023-02-05] MEDS: LORATADINE 10 MG TABLET PO SCH (08:51)
[2023-02-05] MEDS: carvediloL 6.25 MG TABLET PO SCH (08:52)
[2023-02-05] MEDS: SENNOSIDES 8.6 MG TABLET PO SCH ×2 (08:52→19:40)
[2023-02-05] MEDS: MICONAZOLE 2% POWDER 90 GM TOP SCH ×2 (08:52→19:39)
[2023-02-05] MEDS: LACTULOSE SYRUP 10GM/15ML 30ML UDC PO SCH ×2 (08:52→19:41)
[2023-02-05] MEDS: ALLOPURINOL 100 MG TABLET PO SCH (08:52)
[2023-02-05] MEDS ORDERED: CALCITRIOL 0.25 MCG CAPSULE PO SCH (09:00)
--- NOTE | 2023-02-05 09:12 | Cardiology Progress Note ---
Subjective Date Seen by Provider: Feb 05, 2023 Time Seen by Provider: 08:30 Subjective/Events-last exam Patient is sitting up in chair, denies any chest pain. Continues to have some dyspnea, slowly improving. Objective-Cardiology Exam Last Set of Vital Signs Vital Signs 02/05/23 02/05/23 08:08 09:32 Temp 36.8 Pulse 78 Resp 20 B/P (MAP) 167/72 (103) Pulse Ox 93 O2 Delivery Nasal Cannula O2 Flow Rate 3.00 I&O Intake and Output 02/04/23 23:59 Intake Total 1295 ml Output Total 0 ml Balance 1295 ml Intake Oral 1295 ml Output Urine Total 0 ml # Voids 4 # Bowel Movements 1 General: Alert, No Acute Distress Lungs: Other (ronchi) Heart: Regular Rate, No Murmurs Extremities: Other (trace edema) Neuro: Normal Speech Results Lab Laboratory Tests 02/05/23 05:50 A/P-Cardiology Admission Diagnosis AE COPD HTN HTP Hyperkalemia Assessment/Plan Status post acute respiratory failure likely due to COPD exacerbation. Patient is an active smoker. Smoking cessation was strongly recommended. Possible acute on chronic systolic congestive heart failure. Echocardiogram shows an EF of 45 to 50%. Mildly elevated BNP. Could be due to RV strain. HTN, I will increase Coreg to 12.5mg BID. Continue to monitor. History of recurrent pleural effusion, underwent thoracentesis on this admission. Still having bilateral rales at the bases otherwise no abnormality Pulmonary hypertension likely secondary to severe COPD. Acute on chronic renal failure, continue to monitor renal functions Hyperkalemia Received Kayexalate, continue to monitor. Supervisory-Addendum Brief Supervisory Addendum Participated in pt care: history, MDM, physical Personally performed: exam, history, MDM Care discussed with: JONO Results interpretation: Verified all documentation Notes: Patient was seen and evaluated with Antonietta, examination performed, management plan was discussed, agree with the current scribed note, I made few changes to the note using Italic font Patient was seen at bedside, laying down comfortably Still having generalized weakness. No chest pain was reported. Continue current medication, increase Coreg to 12.5 mg twice daily and monitor blood pressure ANTONIETTA SANTOS Feb 05, 2023 09:11 GEORGE RHODES MD Feb 05, 2023 12:56
[2023-02-05] MEDS: inSUlin DETERMIR 1 UNIT/0.01 ML (CHARGE PER UNIT) SQ SCH ×2 (09:27→20:37)
--- NOTE | 2023-02-05 11:08 | Physical Therapy Daily Note ---
PT Daily Note-Current Subjective Patient agrees to PT. Pain Section J - Health Conditions 1. Rarely or not at all 2. Occasionally 3. Frequently 4. Almost constantly 8. Unable to answer Pain Effect on Sleep: 1 Pain Interference with Therapy: 1 Pain Interference w/Day-to-Day: 1 Mental Status Attachments: Oxygen Transfers SCALE: Activities may be completed with or without assistive devices. 6-Tzwnttipcq-qdlvhwa completes the activity by him/herself with no assistance from a helper. 5-Set-up or Clean-up Assistance-helper sets up or cleans up; patient completes activity. [place] assists only prior to or following the activity. 4-Supervision or Touching Assistance-helper provides verbal cues and/or touching/steadying and/or contact guard assistance as patient completes activity. Assistance may be provided throughout the activity or intermittently. 3-Partial/Moderate Assistance-helper does LESS THAN HALF the effort. [place] lifts, holds or supports trunk or limbs, but provides less than half the effort. 2-Substantial/Maximal Assistance-helper does MORE THAN HALF the effort. [place] lifts or holds trunk or limbs and provides more than half the effort. 7-Qcorwclvs-chutjq does ALL the effort. Patient does none of the effort to complete the activity. Or, the assistance of 2 or more helpers is required for the patient to complete the activity. If activity was not attempted, code reason: 7-Patient Refused. 9-Not Applicable-not attempted and the patient did not perform the activity before the current illness, exacerbation or injury. 10-Not Attempted due to Environmental Limitations-(lack of equipment, weather restraints, etc.). 88-Not Attempted due to Medical Conditions or Safety Concerns. Roll Left & Right (QC): 4 Sit to Lying (QC): 4 Lying to Sitting/Side of Bed(Q: 4 Sit to Stand (QC): 4 Chair/Kjd-ox-Hxftv Xfer(QC): 4 Toilet Transfer (QC): 4 Car Transfer (QC): 4 SBA with all mobility Weight Bearing Right Lower Extremity: Right Full Weight Bearing Left Lower Extremity: Left Full Weight Bearing Gait Training Distance: 40' Walk 10 feet (QC): 4 Walk 50 ft with 2 Turns(QC): 7 Walk 150 ft (QC): 7 Walking 10ft/uneven surface-QC: 7 Gait Assistive Device: FWW safe and functional with no deviation Exercises Seated Therapy Exercises: Ankle pumps, Long arc quads Seated Reps: 15 Assessment Patient has noted increase SOA with minimal activity with O2 in place. SAO2 remains >90% with activity on O2. Continue to increase distance, however, patient continues to decline to attempt. PT Carpenter Assistant Installer Goals Intermediate Goals PT Intermediate Goals Time Frame: Feb 17, 2023 Roll Left & Right (QC): 6 Sit to Lying (QC): 6 Lying-Sitting on Side/Bed(QC): 6 Sit to Stand (QC): 6 Chair/Fxq-fr-Xmczv Xfer(QC): 6 Toilet Transfer (QC): 6 Car Transfer (QC): 4 Does the Patient Walk: Yes Walk 10 feet (QC): 6 Walk 50ft with 2 Turns (QC): 6 Walk 150 ft (QC): 4 Walking 10ft on Uneven Surface: 6 1 Step (curb) (QC): 4 4 Steps (QC): 4 12 Steps (QC): 9 Picking up an Object (QC): 4 Does the Pt use WC or Scooter?: No Wheel 50 feet with 2 turns (QC: 9 Wheel 150 feet: 9 PT Plan Treatment/Plan Treatment Plan: Continue Plan of Care Treatment Plan: Bed Mobility, Education, Functional Activity Faraz, Functional Strength, Group Therapy, Gait, Safety, Therapeutic Exercise, Transfers Treatment Duration: Feb 17, 2023 Frequency: 6 times per week Estimated Hrs Per Day: .25 hour per day Patient and/or Family Agrees t: Yes Time Time In: 1045 Time Out: 1100 DATE: Feb 05, 2023 Total Billed Treatment Time: 15 Total Billed Treatment 1 visit FA 15 min SHERRI HERMOSILLO PT Feb 05, 2023 11:08
--- NOTE | 2023-02-05 11:27 | Progress Note - Hospitalist ---
LAURENCE WANG 02/05/23 1127: Subjective HPI/CC On Admission Date Seen by Provider: Feb 05, 2023 Time Seen by Provider: 09:00 Acute on Chronic Respiratory Failure Subjective/Events-last exam Today, pt is breathing "fairly okay" and is still having mild unproductive cough. Pt is able to ambulate to restroom as needed and eating well. Pt states that she is better than when she was first here. She denies new onset chest pain, constipation, diarrhea, and dysuria. She is having a BM 1x/day. Review of Systems General: No Chills Pulmonary: Dyspnea (mild), Cough Cardiovascular: No: Chest Pain, Palpitations Gastrointestinal: No: Diarrhea, Constipation Genitourinary: No Dysuria Objective Exam Vital Signs Vital Signs Date Time Temp Pulse Resp B/P (MAP) Pulse Ox O2 Delivery O2 Flow Rate FiO2 02/05/23 09:32 Nasal Cannula 3.00 02/05/23 08:08 36.8 78 20 167/72 (103) 93 Capillary Refill : General Appearance: Chronically ill, Mild Distress Respiratory: Lungs Clear, Normal Breath Sounds, No Accessory Muscle Use, No Respiratory Distress Cardiovascular: Regular Rate, Rhythm, No Gallop, No Murmur Neurologic/Psychiatric: Alert, Oriented x3, Normal Mood/Affect Skin: Mottled (noted on hands b/l) Results/Procedures Lab Laboratory Tests 02/05/23 05:50 Patient resulted labs reviewed. Assessment/Plan Assessment and Plan Assess & Plan/Chief Complaint Assessment 1. Acute on Chronic Respiratory Failure 2. Acute on Chronic CHF 3. CKD 4. COPD Exacerbation Plan 1. Lasix 2. O2 3 Monitor Cr and BUN LEONOR ROSE DO 02/05/237: Subjective Subjective/Events-last exam Patient doing about the same Lungs remain coarse Hyperkalemia resolved Creatinine baseline Objective Exam General Appearance: No Apparent Distress, WD/WN, Chronically ill Respiratory: Crackles, Decreased Breath Sounds Cardiovascular: Regular Rate, Rhythm Neurologic/Psychiatric: Alert, Oriented x3 Assessment/Plan Assessment and Plan Assess & Plan/Chief Complaint Continue PT and OT Lungs remain severe DNR Monitor creatinine Supervisory-Addendum Brief Verification & Attestation Participated in pt care: history, MDM, physical Personally performed: exam, history, MDM, supervision of care Care discussed with: Medical Student Procedures: n/a Results interpretation: Verified all documentation Verification and Attestation of Medical Student E/M Service A medical student performed and documented this service in my presence. I reviewed and verified all information documented by the medical student and made modifications to such information, when appropriate. I personally performed the physical exam and medical decision making. Leonor Rose, Feb 05, 2023,19:46 LAURENCE WANG Feb 05, 2023 11:27 LEONOR ROSE DO Feb 05, 2023 19:47
--- NOTE | 2023-02-05 11:41 | Occ Therapy Progress Note ---
Therapy Progress Note Patient declined OT this am, OT will return in afternoon FLORINA WORLEY OT Feb 05, 2023 11:41
[2023-02-05] MEDS: ENOXAPARIN 30 MG/0.3 ML SYRINGE SQ SCH (15:07)
--- NOTE | 2023-02-05 15:21 | Occupational Ther Daily Note ---
OT Current Status-Daily Note Subjective Agrees to BUE ther ex bedside. Patent became incont and ambulated to bathroom w/ OT. Mental Status/Objective Patient Orientation: Person, Place Attachments: Oxygen ADL-Treatment Patent removed blankets and performed SBA supine ot EOB siting, Sitting EOB for ther ex an OT noted odor, Patient is unaware of BM incont. Ambulated to bathroom and completed BM on toilet, Min Assistance w/ removing brief. During hygiene patient again became incont on floor and toilet seat. Managed new brief and hygiene w/ Mod assist Therapy Code Descriptions/Definitions Functional Branch Measure: 0=Not Assessed/NA 4=Minimal Assistance 1=Total Assistance 5=Supervision or Setup 2=Maximal Assistance 6=Modified Branch 3=Moderate Assistance 7=Complete IndependenceSCALE: Activities may be completed with or without assistive devices. 2-Uicnuljdgw-ehsorly completes the activity by him/herself with no assistance from a helper. 5-Set-up or Clean-up Assistance-helper sets up or cleans up; patient completes activity. [place] assists only prior to or following the activity. 4-Supervision or Touching Assistance-helper provides verbal cues and/or touching/steadying and/or contact guard assistance as patient completes activity. Assistance may be provided throughout the activity or intermittently. 3-Partial/Moderate Assistance-helper does LESS THAN HALF the effort. [place] lifts, holds or supports trunk or limbs, but provides less than half the effort. 2-Substantial/Maximal Assistance-helper does MORE THAN HALF the effort. [place] lifts or holds trunk or limbs and provides more than half the effort. 7-Wvwkcbnuw-oddscl does ALL the effort. Patient does none of the effort to complete the activity. Or, the assistance of 2 or more helpers is required for the patient to complete the activity. If activity was not attempted, code reason: 7-Patient Refused. 9-Not Applicable-not attempted and the patient did not perform the activity before the current illness, exacerbation or injury. 10-Not Attempted due to Environmental Limitations-(lack of equipment, weather restraints, etc.). 88-Not Attempted due to Medical Conditions or Safety Concerns. Lower Body Dressing (QC): 3 Toileting Hygiene (QC): 3 Toilet Transfer (QC): 3 Other Treatment EOB sitting for CORE strengthening, breathing exercises, BUE ROM and isometric exercises to improve independence, ROM and endurance w/ ADLS Education OT Patient Education: Correct positioning, Exercise program, Modified ADL techniques, Progress toward Goal/Update tx plan, Purpose of tx/functional activities, Reviewed precautions, Rehab process, Safety issues, Transfer techniques, Use of adapted equipment Teaching Recipient: Patient Teaching Methods: Demonstration, Discussion Response to Teaching: Verbalize Understanding, Reinforcement Needed OT Experimental Technician Goals Usp Goals Time Frame: Feb 16, 2023 Acute change in mental status: 0 Inattention: 0 Disorganized thinkin Altered level of consciousness: 0 Eating (QC): 6 Oral Hygiene (QC): 6 Toileting Hygiene (QC): 5 Shower/Bathe Self (QC): 4 Upper Body Dressing (QC): 5 Lower Body Dressing (QC): 4 On/Off Footwear (QC): 4 1=Demonstrate adherence to instructed precautions during ADL tasks. 2=Patient will verbalize/demonstrate understanding of assistive devices/modifications for ADL. 3=Patient will improve strength/tolerance for activity to enable patient to perform ADL's. OT Education/Plan Problem List/Assessment Assessment: Decreased Activ Tolerance, Decreased Safety Aware, Decreased UE Strength, Impaired Bed Mobility, Impaired Cognition, Impaired Coordination, Impaired Funct Balance, Impaired Self-Care Skills, Restricted Funct UE ROM Discharge Recommendations Plan/Recommendations: Continue POC Treatment Plan/Plan of Care Treatment,Training & Education: Yes Patient would benefit from OT for education, treatment and training to promote independence in ADL's, mobility, safety and/or upper extremity function for ADL's. Plan of Care: ADL Retraining, Concurrent Therapy, Functional Mobility, Group Exercise/Act as Ind, UE Funct Exercise/Act Treatment Duration: Feb 16, 2023 Frequency: At least 5 of 7 days/Wk (IRF) Estimated Hrs Per Day: .25 hour per day Agreement: Yes Rehab Potential: Fair Time Start Time: 13:50 Stop Time: 14:06 DATE: Feb 05, 2023 Total Time Billed (hr/min): 16 Billed Treatment Time ADL 16 min FLORINA WORLEY OT Feb 05, 2023 15:21
[2023-02-05] MEDS: carvediloL 12.5 MG TABLET PO SCH (19:37)
[2023-02-05] MEDS: dilTIAZem ER 300 MG CAPSULE PO SCH (19:37)
[2023-02-05] MEDS: clonazePAM 1 MG TABLET PO SCH (19:39)
[2023-02-05 20:03] VITALS: BP 137/74
[2023-02-05] MEDS: oxyCODONE IMMEDIATE RELEASE 5 MG TABLET PO PRN (23:11)
[2023-02-06] MEDS: FUROSEMIDE 40 MG TABLET PO SCH ×2 (05:23→17:09)
[2023-02-06] MEDS: inSUlin ASPART 1 UNIT/0.01 ML (PER UNIT) SC SCH ×4 (05:23→21:47)
[2023-02-06 05:24] LABS: HEMOGLOBIN 12.1 g/dL (11.5-16.0); MEAN CORPUSCULAR VOLUME 94 fL (80-99)
[2023-02-06 05:26] LABS: BASOPHILS % (AUTO) 0 % (0-10); EOSINOPHILS # (AUTO) 0.3 10^3/uL (0.0-0.3); EOSINOPHILS % (AUTO) 3 % (0-10); HEMATOCRIT 39 % (35-52); LYMPHOCYTES # (AUTO) 0.7 10^3/uL (1.0-4.0); LYMPHOCYTES % (AUTO) 5 % (12-44); MEAN CORPUSCULAR HEMOGLOBIN 29 pg (25-34); MEAN CORPUSCULAR HGB CONC 31 g/dL (32-36); MEAN PLATELET VOLUME 10.6 fL (9.0-12.2); MONOCYTES # (AUTO) 0.5 10^3/uL (0.0-1.0); MONOCYTES % (AUTO) 4 % (0-12); NEUTROPHILS # (AUTO) 10.5 10^3/uL (1.8-7.8); NEUTROPHILS % (AUTO) 87 % (42-75); PLATELET COUNT 117 10^3/uL (130-400); WHITE BLOOD COUNT 12.1 10^3/uL (4.3-11.0)
[2023-02-06 05:48] LABS: ALBUMIN 2.7 GM/DL (3.2-4.5); BILIRUBIN,TOTAL 0.8 MG/DL (0.1-1.0); CALCIUM 8.3 MG/DL (8.5-10.1); CREATININE SERUM 1.77 MG/DL (0.60-1.30); POTASSIUM 4.3 MMOL/L (3.6-5.0); TOTAL PROTEIN 4.8 GM/DL (6.4-8.2)
[2023-02-06 07:48] VITALS: BP 153/68
[2023-02-06] MEDS: LACTULOSE SYRUP 10GM/15ML 30ML UDC PO SCH ×2 (08:15→21:47)
[2023-02-06] MEDS: hydrALAZINE 25 MG TABLET PO SCH ×3 (08:16→21:46)
[2023-02-06] MEDS: LORATADINE 10 MG TABLET PO SCH (08:16)
[2023-02-06] MEDS: SENNOSIDES 8.6 MG TABLET PO SCH ×2 (08:16→21:46)
[2023-02-06] MEDS: carvediloL 12.5 MG TABLET PO SCH ×2 (08:16→21:46)
[2023-02-06] MEDS: ALLOPURINOL 100 MG TABLET PO SCH (08:16)
[2023-02-06] MEDS: inSUlin DETERMIR 1 UNIT/0.01 ML (CHARGE PER UNIT) SQ SCH ×2 (08:17→21:47)
[2023-02-06] MEDS: MICONAZOLE 2% POWDER 90 GM TOP SCH ×2 (08:20→21:48)
--- NOTE | 2023-02-06 09:05 | Cardiology Progress Note ---
Subjective Date Seen by Provider: Feb 06, 2023 Time Seen by Provider: 09:04 Subjective/Events-last exam Patient was seen at bedside, laying down comfortably, feeling better Review of Systems General: No Chills, No Night Sweats; Fatigue; No Malaise, No Appetite, No Other HEENT: No Head Aches, No Visual Changes, No Eye Pain, No Ear Pain, No Dysphasia, No Sinus Congestion, No Post Nasal Drip, No Sore Throat, No Other Pulmonary: No Dyspnea, No Cough, No Pleuritic Chest Pain, No Other Cardiovascular: No: Chest Pain, Palpitations, Orthopnea, Paroxysmal Noc. Dyspnea, Edema, Lt Headedness, Other Objective-Cardiology Exam Last Set of Vital Signs Vital Signs 02/06/23 07:48 Temp 36.9 Pulse 79 Resp 22 B/P (MAP) 153/68 (96) Pulse Ox 92 O2 Delivery High Flow N/C O2 Flow Rate 3.00 I&O Intake and Output 02/06/23 00:00 Intake Total 950 ml Balance 950 ml Intake Oral 950 ml Bladder Scan Volume Amount 1383 ml # Voids 5 # Bowel Movements 4 General: Alert, Oriented X3, Cooperative, No Acute Distress HEENT: Atraumatic, PERRLA Neck: Supple, No JVD Lungs: Other (ronchi) Heart: Regular Rate, Normal S1, Normal S2, No Murmurs Abdomen: Normal Bowel Sounds Extremities: Other (trace edema) Neuro: Normal Speech Psych/Mental Status: Mood NL Results Lab Laboratory Tests 02/06/23 05:10 A/P-Cardiology Admission Diagnosis AE COPD HTN HTP Hyperkalemia Assessment/Plan Status post acute respiratory failure likely due to COPD exacerbation. Patient is an active smoker. Smoking cessation was strongly recommended. Acute on chronic systolic congestive heart failure. Echocardiogram shows an EF of 45 to 50%. Mildly elevated BNP. Could be due to RV strain. Hypertension, better controlled. Coreg was increased to 12.5 twice daily. Continue to monitor History of recurrent pleural effusion, underwent thoracentesis on this admission. Still having bilateral rales at the bases otherwise no abnormality Pulmonary hypertension likely secondary to severe COPD. Acute on chronic renal failure, continue to monitor renal functions Hyperkalemia Received Kayexalate, continue to monitor. GEORGE RHODES MD Feb 06, 2023 09:05
--- NOTE | 2023-02-06 09:33 | Progress Note - Hospitalist ---
LAURENCE WANG 02/06/23 0933: Subjective HPI/CC On Admission Date Seen by Provider: Feb 06, 2023 Time Seen by Provider: 08:10 Acute on Chronic Respiratory Failure Subjective/Events-last exam Pt had a blank catheter placed yesterday after inability to void and a full bladder (>1300ml). Vitals are stable, BUN and Cr are stable, and CXR showed no infiltrates and is consistent with COPD. Today, pt is resting comfortably in bed. No change in status. Breathing is "fair". Pt denies chest pain, shortness o f breath. No new concerns. Review of Systems General: No Chills Pulmonary: No Dyspnea; Cough Cardiovascular: No: Chest Pain, Palpitations Objective Exam Vital Signs Vital Signs Date Time Temp Pulse Resp B/P (MAP) Pulse Ox O2 Delivery O2 Flow Rate FiO2 02/06/23 07:48 36.9 79 22 153/68 (96) 92 High Flow N/C 3.00 Capillary Refill : General Appearance: No Apparent Distress, WD/WN Respiratory: Chest Non Tender, No Accessory Muscle Use, No Respiratory Distress, Wheezing (expiratory) Cardiovascular: Regular Rate, Rhythm, No Gallop, No Murmur Neurologic/Psychiatric: Alert, Oriented x3, No Motor/Sensory Deficits, Normal Mood/Affect Results/Procedures Lab Laboratory Tests 02/06/23 05:10 Patient resulted labs reviewed. Assessment/Plan Assessment and Plan Assess & Plan/Chief Complaint Assessment 1. Acute on Chronic Respiratory Failure 2. Acute on Chronic CHF 3. CKD 4. COPD Exacerbation Plan 1. Lasix 2. O2 3 Monitor Cr and BUN LEONOR CHAVIRA DO 02/06/231943: Subjective Subjective/Events-last exam No new issues Required a Blank catheter last night Creatinine good Potassium good Objective Exam General Appearance: No Apparent Distress, WD/WN, Chronically ill Respiratory: Lungs Clear, Normal Breath Sounds Cardiovascular: Regular Rate, Rhythm Assessment/Plan Assessment and Plan Assess & Plan/Chief Complaint Supportive care Poor prognosis long-term Supervisory-Addendum Brief Verification & Attestation Participated in pt care: history, MDM, physical Personally performed: exam, history, MDM, supervision of care Care discussed with: Medical Student Procedures: n/a Results interpretation: Verified all documentation Verification and Attestation of Medical Student E/M Service A medical student performed and documented this service in my presence. I reviewed and verified all information documented by the medical student and made modifications to such information, when appropriate. I personally performed the physical exam and medical decision making. Leonor Chavira, Feb 06, 2023,19:44 LAURENCE WANG Feb 06, 2023 09:33 LEONOR CHAVIRA DO Feb 06, 2023 19:44
[2023-02-06] MEDS: RT-Ipratropium/Albuterol NEB 3 ML VIAL INH SCH ×2 (10:13→21:32)
--- NOTE | 2023-02-06 10:33 | Physical Therapy Daily Note ---
PT Daily Note-Current Subjective Patient agrees to therapy. Pain Section J - Health Conditions 1. Rarely or not at all 2. Occasionally 3. Frequently 4. Almost constantly 8. Unable to answer Pain Effect on Sleep: 1 Pain Interference with Therapy: 1 Pain Interference w/Day-to-Day: 1 Transfers SCALE: Activities may be completed with or without assistive devices. 3-Mrluszzysr-zfzibew completes the activity by him/herself with no assistance from a helper. 5-Set-up or Clean-up Assistance-helper sets up or cleans up; patient completes activity. [place] assists only prior to or following the activity. 4-Supervision or Touching Assistance-helper provides verbal cues and/or touching/steadying and/or contact guard assistance as patient completes activity. Assistance may be provided throughout the activity or intermittently. 3-Partial/Moderate Assistance-helper does LESS THAN HALF the effort. [place] lifts, holds or supports trunk or limbs, but provides less than half the effort. 2-Substantial/Maximal Assistance-helper does MORE THAN HALF the effort. [place] lifts or holds trunk or limbs and provides more than half the effort. 4-Gxxonmxoj-byjkac does ALL the effort. Patient does none of the effort to complete the activity. Or, the assistance of 2 or more helpers is required for the patient to complete the activity. If activity was not attempted, code reason: 7-Patient Refused. 9-Not Applicable-not attempted and the patient did not perform the activity before the current illness, exacerbation or injury. 10-Not Attempted due to Environmental Limitations-(lack of equipment, weather restraints, etc.). 88-Not Attempted due to Medical Conditions or Safety Concerns. Lying to Sitting/Side of Bed(Q: 4 Sit to Stand (QC): 4 Chair/Ilb-rf-Mzyag Xfer(QC): 4 Weight Bearing Right Lower Extremity: Right Full Weight Bearing Left Lower Extremity: Left Full Weight Bearing Gait Training Distance: 40' Walk 10 feet (QC): 4 Gait Assistive Device: FWW safe and functional with no deviation Exercises Seated Therapy Exercises: Ankle pumps, Long arc quads, Hip flexion Seated Reps: 15 Assessment PT/OT cotreat due to patient's respiratory status and inability to tolerate intense treatment. Patient is SBA with all mobility and is up in recliner with needs met. PT address functional mobility while OT address ADL's in seated position. PT Halfway Goals Halfway Goals PT Society Reporter Goals Time Frame: Feb 17, 2023 Roll Left & Right (QC): 6 Sit to Lying (QC): 6 Lying-Sitting on Side/Bed(QC): 6 Sit to Stand (QC): 6 Chair/Ehg-pq-Gqonm Xfer(QC): 6 Toilet Transfer (QC): 6 Car Transfer (QC): 4 Does the Patient Walk: Yes Walk 10 feet (QC): 6 Walk 50ft with 2 Turns (QC): 6 Walk 150 ft (QC): 4 Walking 10ft on Uneven Surface: 6 1 Step (curb) (QC): 4 4 Steps (QC): 4 12 Steps (QC): 9 Picking up an Object (QC): 4 Does the Pt use WC or Scooter?: No Wheel 50 feet with 2 turns (QC: 9 Wheel 150 feet: 9 PT Plan Treatment/Plan Treatment Plan: Continue Plan of Care Treatment Plan: Bed Mobility, Education, Functional Activity Faraz, Functional Strength, Group Therapy, Gait, Safety, Therapeutic Exercise, Transfers Treatment Duration: Feb 17, 2023 Frequency: 6 times per week Estimated Hrs Per Day: .25 hour per day Patient and/or Family Agrees t: Yes Time Time In: 945 Time Out: 1000 DATE: Feb 06, 2023 Total Billed Treatment Time: 15 Total Billed Treatment 1 visit FA 15 min SHERRI HERMOSILLO PT Feb 06, 2023 10:33
--- NOTE | 2023-02-06 11:16 | Occupational Ther Daily Note ---
OT Current Status-Daily Note Subjective Agreeable to OT Mental Status/Objective Patient Orientation: Person, Place Attachments: Blank Catheter (new) ADL-Treatment Sitting to perform face and hair hygiene, shampoo cap supplied, patient low endurance to massage shampoo thoroughly, OT completed scalp scrub, , patient gimenez through hair after washing face. Therapy Code Descriptions/Definitions Functional [place] Measure: 0=Not Assessed/NA 4=Minimal Assistance 1=Total Assistance 5=Supervision or Setup 2=Maximal Assistance 6=Modified [place] 3=Moderate Assistance 7=Complete IndependenceSCALE: Activities may be completed with or without assistive devices. 8-Zrkoypitxd-qirevhn completes the activity by him/herself with no assistance from a helper. 5-Set-up or Clean-up Assistance-helper sets up or cleans up; patient completes activity. [place] assists only prior to or following the activity. 4-Supervision or Touching Assistance-helper provides verbal cues and/or touching/steadying and/or contact guard assistance as patient completes activity. Assistance may be provided throughout the activity or intermittently. 3-Partial/Moderate Assistance-helper does LESS THAN HALF the effort. [place] lifts, holds or supports trunk or limbs, but provides less than half the effort. 2-Substantial/Maximal Assistance-helper does MORE THAN HALF the effort. [place] lifts or holds trunk or limbs and provides more than half the effort. 5-Etythvtxr-tbmnja does ALL the effort. Patient does none of the effort to complete the activity. Or, the assistance of 2 or more helpers is required for the patient to complete the activity. If activity was not attempted, code reason: 7-Patient Refused. 9-Not Applicable-not attempted and the patient did not perform the activity before the current illness, exacerbation or injury. 10-Not Attempted due to Environmental Limitations-(lack of equipment, weather restraints, etc.). 88-Not Attempted due to Medical Conditions or Safety Concerns. Eating (QC): 6 Oral Hygiene (QC): 5 Other Treatment CO Treatment for patient w/ low endurance and navigation of ADs of FWW, 02 and blank Education OT Patient Education: Correct positioning, Modified ADL techniques, Progress toward Goal/Update tx plan, Purpose of tx/functional activities, Reviewed precautions, Rehab process Teaching Recipient: Patient Teaching Methods: Demonstration, Discussion Response to Teaching: Reinforcement Needed OT Accounting Advisory Services Manager Goals Accounting Advisory Services Manager Goals Time Frame: Feb 16, 2023 Acute change in mental status: 0 Inattention: 0 Disorganized thinkin Altered level of consciousness: 0 Eating (QC): 6 Oral Hygiene (QC): 6 Toileting Hygiene (QC): 5 Shower/Bathe Self (QC): 4 Upper Body Dressing (QC): 5 Lower Body Dressing (QC): 4 On/Off Footwear (QC): 4 1=Demonstrate adherence to instructed precautions during ADL tasks. 2=Patient will verbalize/demonstrate understanding of assistive devices/modific ations for ADL. 3=Patient will improve strength/tolerance for activity to enable patient to perform ADL's. OT Education/Plan Problem List/Assessment Assessment: Decreased Activ Tolerance, Decreased Safety Aware, Decreased UE Strength, Impaired Cognition, Impaired Coordination, Impaired Funct Balance, Impaired Self-Care Skills Discharge Recommendations Plan/Recommendations: Continue POC Treatment Plan/Plan of Care Treatment,Training & Education: Yes Patient would benefit from OT for education, treatment and training to promote independence in ADL's, mobility, safety and/or upper extremity function for ADL's. Plan of Care: ADL Retraining, Concurrent Therapy, Functional Mobility, Group Exercise/Act as Ind, UE Funct Exercise/Act Treatment Duration: Feb 16, 2023 Frequency: At least 5 of 7 days/Wk (IRF) Estimated Hrs Per Day: .25 hour per day Agreement: Yes Rehab Potential: Fair Time Start Time: 09:49 Stop Time: 10:00 DATE: Feb 06, 2023 Total Time Billed (hr/min): 11 Billed Treatment Time ADL 11 min FLORINA WORLEY OT Feb 06, 2023 11:16
[2023-02-06] MEDS: ENOXAPARIN 30 MG/0.3 ML SYRINGE SQ SCH (15:30)
[2023-02-06 19:33] VITALS: BP 134/62
[2023-02-06 21:33] VITALS: BP 153/86
[2023-02-06] MEDS: clonazePAM 1 MG TABLET PO SCH (21:46)
[2023-02-06] MEDS: dilTIAZem ER 300 MG CAPSULE PO SCH (21:46)
[2023-02-06] MEDS: oxyCODONE IMMEDIATE RELEASE 5 MG TABLET PO PRN (21:56)
[2023-02-07] MEDS: inSUlin ASPART 1 UNIT/0.01 ML (PER UNIT) SC SCH ×4 (05:54→21:09)
[2023-02-07] MEDS: FUROSEMIDE 40 MG TABLET PO SCH ×2 (06:04→17:23)
[2023-02-07] MEDS: RT-Ipratropium/Albuterol NEB 3 ML VIAL INH SCH ×2 (06:59→20:36)
[2023-02-07 07:25] VITALS: BP 136/74
--- NOTE | 2023-02-07 08:20 | Occupational Ther Daily Note ---
OT Current Status-Daily Note Subjective Reclined in bed, completed breakfast, agreeable to OT Pain Numeric Pain Scale: 0-No Pain Mental Status/Objective Patient Orientation: Person, Place, Situation Attachments: Thomas Catheter ADL-Treatment SOA required 2 resting periods during session. One in standing an done w/ sitting down on commode following BM/hygiene training Therapy Code Descriptions/Definitions Functional [place] Measure: 0=Not Assessed/NA 4=Minimal Assistance 1=Total Assistance 5=Supervision or Setup 2=Maximal Assistance 6=Modified [place] 3=Moderate Assistance 7=Complete IndependenceSCALE: Activities may be completed with or without assistive devices. 0-Ouejdhojpr-pnuldow completes the activity by him/herself with no assistance from a helper. 5-Set-up or Clean-up Assistance-helper sets up or cleans up; patient completes activity. [place] assists only prior to or following the activity. 4-Supervision or Touching Assistance-helper provides verbal cues and/or touching/steadying and/or contact guard assistance as patient completes activity. Assistance may be provided throughout the activity or intermittently. 3-Partial/Moderate Assistance-helper does LESS THAN HALF the effort. [place] lifts, holds or supports trunk or limbs, but provides less than half the effort. 2-Substantial/Maximal Assistance-helper does MORE THAN HALF the effort. [place] lifts or holds trunk or limbs and provides more than half the effort. 1-Balzuugtr-hcmqak does ALL the effort. Patient does none of the effort to complete the activity. Or, the assistance of 2 or more helpers is required for the patient to complete the activity. If activity was not attempted, code reason: 7-Patient Refused. 9-Not Applicable-not attempted and the patient did not perform the activity before the current illness, exacerbation or injury. 10-Not Attempted due to Environmental Limitations-(lack of equipment, weather restraints, etc.). 88-Not Attempted due to Medical Conditions or Safety Concerns. Eating (QC): 6 Oral Hygiene (QC): 5 (Standing at sink w/ FWW and 02) Toileting Hygiene (QC): 4 (Patient completed 3 wipes, OT completed final wipe for effectiveness. Patietn remained in standing for hygiene. Patient required sitting on commode for rest period prior to ambulation to recliner. ) Toilet Transfer (QC): 4 (Used vertical GB) Ambulated towards door for tolerance activity, stop at foot of bed for rest period on return from doorway to recliner. does not keep FWW positioned to body during turn or w/ sitting in recliner. Patient does not reach back for arm rest for safety and plopped in recliner, OT intervention for safety and fall reduction and energy conservation education w/ use of FWW Education OT Patient Education: Correct positioning, Energy conservation, Exercise program, Modified ADL techniques, Progress toward Goal/Update tx plan, Purpose of tx/functional activities, Reviewed precautions, Rehab process, Safety issues, Transfer techniques, Use of adapted equipment Teaching Recipient: Patient Teaching Methods: Demonstration, Discussion Response to Teaching: Reinforcement Needed OT Group Home Goals [employer] Goals Time Frame: Feb 16, 2023 Acute change in mental status: 0 Inattention: 0 Disorganized thinkin Altered level of consciousness: 0 Eating (QC): 6 Oral Hygiene (QC): 6 Toileting Hygiene (QC): 5 Shower/Bathe Self (QC): 4 Upper Body Dressing (QC): 5 Lower Body Dressing (QC): 4 On/Off Footwear (QC): 4 1=Demonstrate adherence to instructed precautions during ADL tasks. 2=Patient will verbalize/demonstrate understanding of assistive devices/modifications for ADL. 3=Patient will improve strength/tolerance for activity to enable patient to perform ADL's. OT Education/Plan Problem List/Assessment Assessment: Decreased Activ Tolerance, Decreased Safety Aware, Decreased UE Strength, Impaired Cognition, Impaired Coordination, Impaired Funct Balance, Impaired Self-Care Skills Discharge Recommendations Plan/Recommendations: Continue POC Therapy Discharge Recommendati: Post Acute OT Treatment Plan/Plan of Care Treatment,Training & Education: Yes Patient would benefit from OT for education, treatment and training to promote independence in ADL's, mobility, safety and/or upper extremity function for ADL's. Plan of Care: ADL Retraining, Concurrent Therapy, Functional Mobility, Group Exercise/Act as Ind, UE Funct Exercise/Act Treatment Duration: Feb 16, 2023 Frequency: At least 5 of 7 days/Wk (IRF) Estimated Hrs Per Day: .25 hour per day Agreement: Yes Rehab Potential: Fair remains in recliner w/ patient activating leg rest and call light in lap. All needs met Time Start Time: 07:52 Stop Time: 08:13 DATE: Feb 07, 2023 Total Time Billed (hr/min): 21 Billed Treatment Time ADL 21 min FLORINA WORLEY OT Feb 07, 2023 08:20
--- NOTE | 2023-02-07 09:08 | Progress Note - Cardiology ---
Cardiology SOAP Progress Note Subjective: Sitting up in recliner at the bedside Feels SOB is unchanged from yesterday No c/o CP or palpitations No c/o LE swelling Objective: I&O/Vital Signs 02/06/23 02/06/23 02/07/23 21:32 21:33 07:25 Temp 36.9 36.5 Pulse 79 78 Resp 18 B/P (MAP) 136/74 (94) Pulse Ox 92 92 92 O2 Delivery Nasal Cannula High Flow N/C O2 Flow Rate 3.00 3.00 FiO2 32 02/07/23 00:00 Intake Total 597 ml Output Total 1050 ml Balance -453 ml Weight (Pounds): 205 Weight (Ounces): 8.0 Constitutional: AAO x 3, well-developed, well-nourished Respiratory: No accessory muscle use, No respiratory distress; chest expansion is symmetric, chest is bilaterally symmetric, other (diminished RLL) Cardiovascular: regular rate-rhythm; No JVD; S1 and S2 Gastrointestional: No tender; soft, round; No guarding; audible bowel sounds Extremities: no lower extremity edema bilateral Neurologic/Psychiatric: other (moves all extremities) Skin: other (brusising to hands/arms bilat) Results/Procedures: Labs Laboratory Tests 02/06/23 11:20: Glucometer 82 02/06/23 15:53: Glucometer 103 02/06/23 19:17: Glucometer 160H 02/07/23 05:38: Glucometer 102 Laboratory Tests 02/06/23 05:10 A/P: Assessment: Status post acute respiratory failure likely due to COPD exacerbation. Patient is an active smoker. Smoking cessation was strongly recommended. Chronic systolic congestive heart failure - Echocardiogram 01-25-[address] Gordon shows an EF of 45 to 50%. Hypertension History of recurrent right pleural effusion, underwent thoracentesis on this admission. Pulmonary hypertension - likely secondary to severe COPD. CKD 3 - continue to monitor renal functions Plan: Records reviewed in detail from this hospital admission Continue current medication regimen Monitor lab VINI PARTIDA Feb 07, 2023 09:08
[2023-02-07] MEDS: LORATADINE 10 MG TABLET PO SCH (09:14)
[2023-02-07] MEDS: ALLOPURINOL 100 MG TABLET PO SCH (09:15)
[2023-02-07] MEDS: inSUlin DETERMIR 1 UNIT/0.01 ML (CHARGE PER UNIT) SQ SCH ×2 (09:15→21:10)
[2023-02-07] MEDS: hydrALAZINE 25 MG TABLET PO SCH ×3 (09:15→21:09)
[2023-02-07] MEDS: SENNOSIDES 8.6 MG TABLET PO SCH ×2 (09:15→21:09)
[2023-02-07] MEDS: carvediloL 12.5 MG TABLET PO SCH ×2 (09:15→21:09)
[2023-02-07] MEDS: LACTULOSE SYRUP 10GM/15ML 30ML UDC PO SCH ×2 (09:16→21:09)
[2023-02-07] MEDS: MICONAZOLE 2% POWDER 90 GM TOP SCH ×2 (09:18→21:10)
--- NOTE | 2023-02-07 09:52 | Physical Therapy Daily Note ---
PT Daily Note-Current Subjective Patient sitting in bed upon PT arrival, refuses treatment due to pain, but agreeable to working on transfers to get back into bed. Rates pain at 8/10 in her back. Pain Section J - Health Conditions 1. Rarely or not at all 2. Occasionally 3. Frequently 4. Almost constantly 8. Unable to answer Pain Effect on Sleep: 1 Pain Interference with Therapy: 1 Pain Interference w/Day-to-Day: 1 Mental Status Patient Orientation: Person, Place, Time, Situation Transfers SCALE: Activities may be completed with or without assistive devices. 5-Mbwmtgxuze-kyzkzwt completes the activity by him/herself with no assistance from a helper. 5-Set-up or Clean-up Assistance-helper sets up or cleans up; patient completes activity. [place] assists only prior to or following the activity. 4-Supervision or Touching Assistance-helper provides verbal cues and/or touching/steadying and/or contact guard assistance as patient completes activity. Assistance may be provided throughout the activity or intermittently. 3-Partial/Moderate Assistance-helper does LESS THAN HALF the effort. [place] lifts, holds or supports trunk or limbs, but provides less than half the effort. 2-Substantial/Maximal Assistance-helper does MORE THAN HALF the effort. [place] lifts or holds trunk or limbs and provides more than half the effort. 8-Mkzbxoaww-mfeehx does ALL the effort. Patient does none of the effort to complete the activity. Or, the assistance of 2 or more helpers is required for the patient to complete the activity. If activity was not attempted, code reason: 7-Patient Refused. 9-Not Applicable-not attempted and the patient did not perform the activity before the current illness, exacerbation or injury. 10-Not Attempted due to Environmental Limitations-(lack of equipment, weather restraints, etc.). 88-Not Attempted due to Medical Conditions or Safety Concerns. Roll Left & Right (QC): 4 Sit to Lying (QC): 4 Lying to Sitting/Side of Bed(Q: 4 Sit to Stand (QC): 4 Chair/Lsf-cq-Gfoeu Xfer(QC): 4 Weight Bearing Right Lower Extremity: Right Full Weight Bearing Left Lower Extremity: Left Full Weight Bearing Assessment Current Status: Poor Progress Patient tolerated treatment poorly but was able to perform all transfers and bed mobility with SBA. Patient in bed post treatment with all needs met, nursing notified, call light in reach. PT Algebraist Goals Algebraist Goals PT Algebraist Goals Time Frame: Feb 17, 2023 Roll Left & Right (QC): 6 Sit to Lying (QC): 6 Lying-Sitting on Side/Bed(QC): 6 Sit to Stand (QC): 6 Chair/Roj-uu-Rxmnj Xfer(QC): 6 Toilet Transfer (QC): 6 Car Transfer (QC): 4 Does the Patient Walk: Yes Walk 10 feet (QC): 6 Walk 50ft with 2 Turns (QC): 6 Walk 150 ft (QC): 4 Walking 10ft on Uneven Surface: 6 1 Step (curb) (QC): 4 4 Steps (QC): 4 12 Steps (QC): 9 Picking up an Object (QC): 4 Does the Pt use WC or Scooter?: No Wheel 50 feet with 2 turns (QC: 9 Wheel 150 feet: 9 PT Plan Treatment/Plan Treatment Plan: Continue Plan of Care Treatment Plan: Bed Mobility, Education, Functional Activity Faraz, Functional Strength, Group Therapy, Gait, Safety, Therapeutic Exercise, Transfers Treatment Duration: Feb 17, 2023 Frequency: 6 times per week Estimated Hrs Per Day: .25 hour per day Patient and/or Family Agrees t: Yes Safety Risks/Education Patient Education: Transfer Techniques Teaching Recipient: Patient Teaching Methods: Demonstration, Discussion Response to Teaching: Verbalize Understanding, Return Demonstration Time Time In: 935 Time Out: 945 DATE: Feb 07, 2023 Total Billed Treatment Time: 10 Total Billed Treatment Visit, SOHAIL RAYO PT Feb 07, 2023 09:52
--- NOTE | 2023-02-07 10:07 | Progress Note - Cardiology ---
Cardiology SOAP Progress Note Subjective: No cp or palp or syncope or shortness of breath Gen weakness and malaise No n/v/d Objective: I&O/Vital Signs 02/07/23 02/07/23 07:25 08:00 Temp 36.5 Pulse 78 Resp 18 B/P (MAP) 136/74 (94) Pulse Ox 92 O2 Delivery High Flow N/C Nasal Cannula O2 Flow Rate 3.00 3.00 02/06/23 23:59 Intake Total 597 ml Output Total 1050 ml Balance -453 ml Weight (Pounds): 205 Weight (Ounces): 8.0 Constitutional: AAO x 3, well-developed, well-nourished Respiratory: No accessory muscle use, No respiratory distress; chest expansion is symmetric, chest is bilaterally symmetric, other (diminished RLL) Cardiovascular: regular rate-rhythm; No JVD; S1 and S2 Gastrointestional: No tender; soft, round; No guarding; audible bowel sounds Extremities: no lower extremity edema bilateral Neurologic/Psychiatric: other (moves all extremities) Skin: other (brusising to hands/arms bilat) Results/Procedures: Labs Laboratory Tests 02/06/23 11:20: Glucometer 82 02/06/23 15:53: Glucometer 103 02/06/23 19:17: Glucometer 160H 02/07/23 05:38: Glucometer 102 A/P: Assessment: Status post acute respiratory failure likely due to COPD exacerbation. Patient is an active smoker. Smoking cessation was strongly recommended. Chronic systolic congestive heart failure - Echocardiogram 01-25-[address] Gordon shows an EF of 45 to 50%. Hypertension History of recurrent right pleural effusion, underwent thoracentesis on this admission. Pulmonary hypertension - likely secondary to severe COPD. CKD 3 - continue to monitor renal functions Plan: Records reviewed in detail from this hospital admission Continue current medication regimen Monitor lab [facility]LEXIS [facility] [place] Feb 07, 2023 10:07
--- NOTE | 2023-02-07 12:09 | Progress Note - Hospitalist ---
LARUENCE WANG 02/07/23 1209: Subjective HPI/CC On Admission Date Seen by Provider: Feb 07, 2023 Time Seen by Provider: 09:25 Acute on Chronic Respiratory Failure Subjective/Events-last exam Appears well today. Tolerating PT and OT with some dyspnea o more extraneous exertion. Breathing is baseline. Lung sounds are clear b/l w/ minor expiratory wheezing noted. No new concerns. Review of Systems General: No Chills, No Fatigue Pulmonary: Cough Cardiovascular: No: Chest Pain Gastrointestinal: No: Nausea, Vomiting, Diarrhea, Constipation Neurological: No: Weakness Objective Exam Vital Signs Vital Signs Date Time Temp Pulse Resp B/P (MAP) Pulse Ox O2 Delivery O2 Flow Rate FiO2 02/07/23 08:00 Nasal Cannula 3.00 02/07/23 07:25 36.5 78 18 136/74 (94) 92 02/06/23 21:33 32 Capillary Refill : General Appearance: No Apparent Distress, WD/WN, Chronically ill Respiratory: Chest Non Tender, No Accessory Muscle Use, No Respiratory Distr ess, Wheezing (minor end expiratory ) Cardiovascular: Regular Rate, Rhythm, No Gallop, No Murmur Neurologic/Psychiatric: Alert, Oriented x3, No Motor/Sensory Deficits, Normal Mood/Affect Skin: Normal Color, Warm/Dry Results/Procedures Lab Patient resulted labs reviewed. Assessment/Plan Assessment and Plan Assess & Plan/Chief Complaint Assessment 1. Acute on Chronic Respiratory Failure 2. Acute on Chronic CHF 3. CKD 4. COPD Exacerbation Plan 1. Lasix 2. O2 3 Monitor Cr and BUN LEONOR ROSE DO 02/07/23 2017: Subjective Subjective/Events-last exam Patient doing a lot better Lungs are clear today We will trial discontinuation of catheter tomorrow Objective Exam General Appearance: No Apparent Distress, WD/WN, Chronically ill Respiratory: Decreased Breath Sounds, Wheezing (minor end expiratory ) Cardiovascular: Regular Rate, Rhythm Neurologic/Psychiatric: Alert, Oriented x3 Assessment/Plan Assessment and Plan Assess & Plan/Chief Complaint Supportive care Discharge later in the week DC Thomas catheter tomorrow Supervisory-Addendum Brief Verification & Attestation Participated in pt care: history, MDM, physical Personally performed: exam, history, MDM, supervision of care Care discussed with: Medical Student Procedures: n/a Results interpretation: Verified all documentation Verification and Attestation of Medical Student E/M Service A medical student performed and documented this service in my presence. I reviewed and verified all information documented by the medical student and made modifications to such information, when appropriate. I personally performed the physical exam and medical decision making. Leonor Rose, Feb 07, 2023,20:16 LAURENCE WANG Feb 07, 2023 12:09 LEONOR ROSE DO Feb 07, 2023 20:17
[2023-02-07] MEDS: ENOXAPARIN 30 MG/0.3 ML SYRINGE SQ SCH (15:47)
[2023-02-07 19:23] VITALS: BP 159/71
[2023-02-07] MEDS: clonazePAM 1 MG TABLET PO SCH (21:09)
[2023-02-07] MEDS: dilTIAZem ER 300 MG CAPSULE PO SCH (21:09)
[2023-02-07] MEDS: oxyCODONE IMMEDIATE RELEASE 5 MG TABLET PO PRN (23:29)
[2023-02-08] MEDS: ALPRAZolam 0.5 MG TABLET PO PRN (01:20)
[2023-02-08] MEDS: inSUlin ASPART 1 UNIT/0.01 ML (PER UNIT) SC SCH ×4 (05:46→20:44)
[2023-02-08 05:47] LABS: BASOPHILS % (AUTO) 0 % (0-10); EOSINOPHILS # (AUTO) 0.3 10^3/uL (0.0-0.3); EOSINOPHILS % (AUTO) 3 % (0-10); HEMATOCRIT 38 % (35-52); HEMOGLOBIN 11.9 g/dL (11.5-16.0); LYMPHOCYTES # (AUTO) 0.7 10^3/uL (1.0-4.0); LYMPHOCYTES % (AUTO) 7 % (12-44); MEAN CORPUSCULAR HEMOGLOBIN 30 pg (25-34); MEAN CORPUSCULAR HGB CONC 32 g/dL (32-36); MEAN CORPUSCULAR VOLUME 94 fL (80-99); MEAN PLATELET VOLUME 10.9 fL (9.0-12.2); MONOCYTES # (AUTO) 0.6 10^3/uL (0.0-1.0); MONOCYTES % (AUTO) 6 % (0-12); NEUTROPHILS # (AUTO) 7.7 10^3/uL (1.8-7.8); NEUTROPHILS % (AUTO) 83 % (42-75); PLATELET COUNT 148 10^3/uL (130-400); WHITE BLOOD COUNT 9.3 10^3/uL (4.3-11.0)
[2023-02-08 06:14] LABS: ALBUMIN 2.6 GM/DL (3.2-4.5); BILIRUBIN,TOTAL 0.6 MG/DL (0.1-1.0); CALCIUM 8.5 MG/DL (8.5-10.1); POTASSIUM 4.3 MMOL/L (3.6-5.0)
[2023-02-08] MEDS: FUROSEMIDE 40 MG TABLET PO SCH ×2 (06:19→17:18)
[2023-02-08 08:01] VITALS: BP 132/66
[2023-02-08] MEDS: LORATADINE 10 MG TABLET PO SCH (08:10)
[2023-02-08] MEDS: carvediloL 12.5 MG TABLET PO SCH ×2 (08:10→19:31)
[2023-02-08] MEDS: hydrALAZINE 25 MG TABLET PO SCH ×3 (08:11→19:31)
[2023-02-08] MEDS: ALLOPURINOL 100 MG TABLET PO SCH (08:11)
[2023-02-08] MEDS: LACTULOSE SYRUP 10GM/15ML 30ML UDC PO SCH ×2 (08:11→19:31)
[2023-02-08] MEDS: inSUlin DETERMIR 1 UNIT/0.01 ML (CHARGE PER UNIT) SQ SCH ×2 (08:12→20:49)
[2023-02-08] MEDS: SENNOSIDES 8.6 MG TABLET PO SCH ×2 (08:16→19:33)
[2023-02-08] MEDS: MICONAZOLE 2% POWDER 90 GM TOP SCH ×2 (08:17→19:32)
[2023-02-08] MEDS: RT-Ipratropium/Albuterol NEB 3 ML VIAL INH SCH ×2 (08:26→21:32)
--- NOTE | 2023-02-08 10:25 | Physical Therapy Daily Note ---
PT Daily Note-Current Subjective Patient agrees to therapy. PT/OT cotreat due to patient O2 needs and diminished functional endurance Pain Section J - Health Conditions 1. Rarely or not at all 2. Occasionally 3. Frequently 4. Almost constantly 8. Unable to answer Pain Effect on Sleep: 1 Pain Interference with Therapy: 1 Pain Interference w/Day-to-Day: 1 Mental Status Patient Orientation: Normal For Age Attachments: Oxygen, Thomas Catheter Transfers SCALE: Activities may be completed with or without assistive devices. 5-Rdotdsfslp-nhvksmm completes the activity by him/herself with no assistance from a helper. 5-Set-up or Clean-up Assistance-helper sets up or cleans up; patient completes activity. [place] assists only prior to or following the activity. 4-Supervision or Touching Assistance-helper provides verbal cues and/or touching/steadying and/or contact guard assistance as patient completes activity. Assistance may be provided throughout the activity or intermittently. 3-Partial/Moderate Assistance-helper does LESS THAN HALF the effort. [place] lifts, holds or supports trunk or limbs, but provides less than half the effort. 2-Substantial/Maximal Assistance-helper does MORE THAN HALF the effort. [place] lifts or holds trunk or limbs and provides more than half the effort. 9-Ukbiwcevl-mrpygd does ALL the effort. Patient does none of the effort to complete the activity. Or, the assistance of 2 or more helpers is required for the patient to complete the activity. If activity was not attempted, code reason: 7-Patient Refused. 9-Not Applicable-not attempted and the patient did not perform the activity before the current illness, exacerbation or injury. 10-Not Attempted due to Environmental Limitations-(lack of equipment, weather restraints, etc.). 88-Not Attempted due to Medical Conditions or Safety Concerns. Roll Left & Right (QC): 6 Sit to Lying (QC): 5 Lying to Sitting/Side of Bed(Q: 5 Sit to Stand (QC): 5 Chair/Eky-hd-Rrfpn Xfer(QC): 5 Toilet Transfer (QC): 4 Car Transfer (QC): 4 (simulated) Weight Bearing Right Lower Extremity: Right Full Weight Bearing Left Lower Extremity: Left Full Weight Bearing Gait Training Distance: 40' Walk 10 feet (QC): 5 Walk 50 ft with 2 Turns(QC): 7 Walk 150 ft (QC): 88 Walking 10ft/uneven surface-QC: 5 Gait Assistive Device: FWW Wheelchair Training Does the Pt Use a Wheelchair?: No Wheel 50 ft with 2 turns (QC): 9 Wheel 150 ft (QC): 9 Stair Training #of Steps: 1 1 Step (curb) (QC): 4 4 Steps (QC): 7 12 Steps (QC): 9 Stairs: Pattern: Step to Balance Picking up an Object (QC): 88 Assessment Patient up in recliner with needs met. Patient has noted increase SOA with minimal activity and requires seated recovery periods due to this. Patient also continues to appear to self limit with distance mobility. PT Rail Layer Goals Alf Goals PT Alf Goals Time Frame: Feb 17, 2023 Roll Left & Right (QC): 6 Sit to Lying (QC): 6 Lying-Sitting on Side/Bed(QC): 6 Sit to Stand (QC): 6 Chair/Yfj-pr-Wphbq Xfer(QC): 6 Toilet Transfer (QC): 6 Car Transfer (QC): 4 Does the Patient Walk: Yes Walk 10 feet (QC): 6 Walk 50ft with 2 Turns (QC): 6 Walk 150 ft (QC): 4 Walking 10ft on Uneven Surface: 6 1 Step (curb) (QC): 4 4 Steps (QC): 4 12 Steps (QC): 9 Picking up an Object (QC): 4 Does the Pt use WC or Scooter?: No Wheel 50 feet with 2 turns (QC: 9 Wheel 150 feet: 9 PT Plan Treatment/Plan Treatment Plan: Continue Plan of Care Treatment Plan: Bed Mobility, Education, Functional Activity Faraz, Functional Strength, Group Therapy, Gait, Safety, Therapeutic Exercise, Transfers Treatment Duration: Feb 17, 2023 Frequency: 6 times per week Estimated Hrs Per Day: .25 hour per day Patient and/or Family Agrees t: Yes Time Time In: 920 Time Out: 935 DATE: Feb 08, 2023 Total Billed Treatment Time: 15 Total Billed Treatment 1 visit FA 15 min SHERRI HERMOSILLO PT Feb 08, 2023 10:25
[2023-02-08] MEDS: oxyCODONE IMMEDIATE RELEASE 5 MG TABLET PO PRN (10:31)
--- NOTE | 2023-02-08 10:45 | Occupational Ther Daily Note ---
OT Current Status-Daily Note Subjective Eating reclined in bed, agreeable to OT, patient reports she will have a shower today Mental Status/Objective Patient Orientation: Person, Place, Time Attachments: Thomas Catheter ADL-Treatment Patient gets out on left side of bed this session, required minimal assistance. Ambulated w/. FWW, gait belt and assist of one person. Patient fatigues easily, OT assisted physical therapy and provided surfaces for patient to sit on during standing activity d/t SOA. Required several rest periods ambulating from bed to vazquez and returning to recliner. OT continued w/ face/oral grooming tasks Therapy Code Descriptions/Definitions Functional [place] Measure: 0=Not Assessed/NA 4=Minimal Assistance 1=Total Assistance 5=Supervision or Setup 2=Maximal Assistance 6=Modified [place] 3=Moderate Assistance 7=Complete IndependenceSCALE: Activities may be completed with or without assistive devices. 8-Ogspvhqrnj-kjmgyma completes the activity by him/herself with no assistance from a helper. 5-Set-up or Clean-up Assistance-helper sets up or cleans up; patient completes activity. [place] assists only prior to or following the activity. 4-Supervision or Touching Assistance-helper provides verbal cues and/or touching/steadying and/or contact guard assistance as patient completes activity. Assistance may be provided throughout the activity or intermittently. 3-Partial/Moderate Assistance-helper does LESS THAN HALF the effort. [place] lifts, holds or supports trunk or limbs, but provides less than half the effort. 2-Substantial/Maximal Assistance-helper does MORE THAN HALF the effort. [place] lifts or holds trunk or limbs and provides more than half the effort. 8-Sjbeaittr-pbawwj does ALL the effort. Patient does none of the effort to complete the activity. Or, the assistance of 2 or more helpers is required for the patient to complete the activity. If activity was not attempted, code reason: 7-Patient Refused. 9-Not Applicable-not attempted and the patient did not perform the activity before the current illness, exacerbation or injury. 10-Not Attempted due to Environmental Limitations-(lack of equipment, weather restraints, etc.). 88-Not Attempted due to Medical Conditions or Safety Concerns. Eating (QC): 6 Oral Hygiene (QC): 5 Upper Body Dressing (QC): 4 Lower Body Dressing (QC): 3 On/Off Footwear: 3 Toileting Hygiene (QC): 4 Toilet Transfer (QC): 3 Education OT Patient Education: Correct positioning, Exercise program, Modified ADL techniques, Progress toward Goal/Update tx plan, Purpose of tx/functional activities, Reviewed precautions, Rehab process, Safety issues, Transfer techniques, Use of adapted equipment Teaching Recipient: Patient Teaching Methods: Demonstration, Discussion Response to Teaching: Verbalize Understanding, Reinforcement Needed OT Mcfp Goals Mcfp Goals Time Frame: Feb 16, 2023 Acute change in mental status: 0 Inattention: 0 Disorganized thinkin Altered level of consciousness: 0 Eating (QC): 6 Oral Hygiene (QC): 6 Toileting Hygiene (QC): 5 Shower/Bathe Self (QC): 4 Upper Body Dressing (QC): 5 Lower Body Dressing (QC): 4 On/Off Footwear (QC): 4 1=Demonstrate adherence to instructed precautions during ADL tasks. 2=Patient will verbalize/demonstrate understanding of assistive devices/modifications for ADL. 3=Patient will improve strength/tolerance for activity to enable patient to perform ADL's. OT Education/Plan Problem List/Assessment Assessment: Decreased Activ Tolerance, Decreased Safety Aware, Decreased UE Strength, Impaired Bed Mobility, Impaired Coordination, Impaired Funct Balance, Impaired Self-Care Skills Discharge Recommendations Plan/Recommendations: Continue POC Treatment Plan/Plan of Care Treatment,Training & Education: Yes Patient would benefit from OT for education, treatment and training to promote independence in ADL's, mobility, safety and/or upper extremity function for ADL's. Plan of Care: ADL Retraining, Concurrent Therapy, Functional Mobility, Group Exercise/Act as Ind, UE Funct Exercise/Act Treatment Duration: Feb 16, 2023 Frequency: At least 5 of 7 days/Wk (IRF) Estimated Hrs Per Day: .25 hour per day Agreement: Yes Rehab Potential: Fair Time Start Time: 09:20 Stop Time: 09:39 DATE: Feb 08, 2023 Total Time Billed (hr/min): 19 Billed Treatment Time CO TR [id number], OT only ADL 09:35-09:39 19 min FLORINA WORLEY OT Feb 08, 2023 10:45
--- NOTE | 2023-02-08 11:58 | Progress Note - Hospitalist ---
LAURENCE WANG 02/08/23 1158: Subjective HPI/CC On Admission Date Seen by Provider: Feb 08, 2023 Time Seen by Provider: 08:55 Acute on Chronic Respiratory Failure Subjective/Events-last exam CC: Acute Respiratory Failure HPI: dry drug worker talked with pt's daughter on the phone on 02/07 to discuss discharge plan. Daughter was amenable to having pt discharged on sunday with home health over the weekend. Today, pt is doing well and breathing fair. Urinary catheter was d/c. No new concerns. Review of Systems General: No Chills HEENT: No Head Aches Pulmonary: No Dyspnea, No Cough Cardiovascular: No: Chest Pain, Palpitations Gastrointestinal: No: Nausea, Vomiting, Abdominal Pain, Diarrhea Objective Exam Vital Signs Vital Signs Date Time Temp Pulse Resp B/P (MAP) Pulse Ox O2 Delivery O2 Flow Rate FiO2 02/08/23 08:26 92 Nasal Cannula 4.00 02/08/23 08:01 36.3 76 18 132/66 (88) 02/06/23 21:33 32 Capillary Refill : General Appearance: No Apparent Distress, Chronically ill Respiratory: Chest Non Tender, No Accessory Muscle Use, No Respiratory Distre ss, Wheezing (b/l upper and lower lungs) Cardiovascular: Regular Rate, Rhythm, No Gallop, No Murmur Neurologic/Psychiatric: Alert, Oriented x3, No Motor/Sensory Deficits, Normal Mood/Affect Skin: Normal Color (bruises on hands b/l), Warm/Dry Results/Procedures Lab Laboratory Tests 02/08/23 05:27 Patient resulted labs reviewed. Assessment/Plan Assessment and Plan Assess & Plan/Chief Complaint Assessment 1. Acute on Chronic Respiratory Failure 2. Acute on Chronic CHF 3. CKD 4. COPD Exacerbation Plan 1. Lasix 2. O2 3 Monitor Cr and BUN 4. Discontinue urinary catheter LEONOR ROSE DO 02/08/232053: Subjective Subjective/Events-last exam Lungs remain clear DC tomorrow DC catheter Objective Exam General Appearance: No Apparent Distress, WD/WN, Chronically ill Respiratory: Lungs Clear, Normal Breath Sounds Cardiovascular: Regular Rate, Rhythm Assessment/Plan Assessment and Plan Assess & Plan/Chief Complaint DC home tomorrow Poor prognosis Hospice candidate in my opinion Supervisory-Addendum Brief Verification & Attestation Participated in pt care: history, MDM, physical Personally performed: exam, history, MDM, supervision of care Care discussed with: Medical Student Procedures: n/a Results interpretation: Verified all documentation Verification and Attestation of Medical Student E/M Service A medical student performed and documented this service in my presence. I reviewed and verified all information documented by the medical student and made modifications to such information, when appropriate. I personally performed the physical exam and medical decision making. Leonor Rose, Feb 08, 2023,20:53 LAURENCE WANG Feb 08, 2023 11:58 LEONOR ROSE DO Feb 08, 2023 20:54
--- NOTE | 2023-02-08 12:58 | Progress Note - Cardiology ---
Cardiology SOAP Progress Note Subjective: Gen malaise and weakness No shortness of breath at rest No cp or palp or syncope No n/v/d Objective: I&O/Vital Signs 02/08/23 02/08/23 02/08/23 08:00 08:01 08:26 Temp 36.3 Pulse 76 Resp 18 B/P (MAP) 132/66 (88) Pulse Ox 93 92 O2 Delivery Nasal Cannula Nasal Cannula Nasal Cannula O2 Flow Rate 3.00 4.00 4.00 02/08/23 00:00 Intake Total 910 ml Output Total 750 ml Balance 160 ml Weight (Pounds): 205 Weight (Ounces): 8.0 Constitutional: AAO x 3, well-developed, well-nourished Respiratory: No accessory muscle use, No respiratory distress; chest expansion is symmetric, chest is bilaterally symmetric, other (diminished RLL) Cardiovascular: regular rate-rhythm; No JVD; S1 and S2 Gastrointestional: No tender; soft, round; No guarding; audible bowel sounds Extremities: no lower extremity edema bilateral Neurologic/Psychiatric: other (moves all extremities) Skin: other (brusising to hands/arms bilat) Results/Procedures: Labs Laboratory Tests 02/07/23 15:25: Glucometer 175H 02/07/23 20:22: Glucometer 163H 02/08/23 05:27: White Blood Count 9.3, Red Blood Count 4.00, Hemoglobin 11.9, Hematocrit 38, Mean Corpuscular Volume 94, Mean Corpuscular Hemoglobin 30, Mean Corpuscular Hemoglobin Concent 32, Red Cell Distribution Width 14.4, Platelet Count 148, Mean Platelet Volume 10.9, Immature Granulocyte % (Auto) 1, Neutrophils (%) (Auto) 83H, Lymphocytes (%) (Auto) 7L, Monocytes (%) (Auto) 6, Eosinophils (%) (Auto) 3, Basophils (%) (Auto) 0, Neutrophils # (Auto) 7.7, Lymphocytes # (Auto) 0.7L, Monocytes # (Auto) 0.6, Eosinophils # (Auto) 0.3, Basophils # (Auto) 0.0, Immature Granulocyte # (Auto) 0.1, Sodium Level 136, Potassium Level 4.3, Chlo ride Level 96L, Carbon Dioxide Level 32, Anion Gap 8, Blood Urea Nitrogen 38H, Creatinine 2.00H, Estimat Glomerular Filtration Rate 24, BUN/Creatinine Ratio 19, Glucose Level 91, Calcium Level 8.5, Corrected Calcium 9.6, Total Bilirubin 0.6, Aspartate Amino Transf (AST/SGOT) 14, Alanine Aminotransferase (ALT/SGPT) 33, Alkaline Phosphatase 83, Total Protein 5.0L, Albumin 2.6L 02/08/23 05:30: Glucometer 84 02/08/23 11:25: Glucometer 100 Laboratory Tests 02/08/23 05:27 A/P: Assessment: Status post acute respiratory failure likely due to COPD exacerbation. Patient is an active smoker. Smoking cessation was strongly recommended. Chronic systolic congestive heart failure - Echocardiogram 01-25-[address] Gordon shows an EF of 45 to 50%. Hypertension History of recurrent right pleural effusion, underwent thoracentesis on this admission. Pulmonary hypertension - likely secondary to severe COPD. CKD 4 - continue to monitor renal functions Plan: Continue current medication regimen Monitor lab KARINE ALEXIS MD FACP [facility] Feb 08, 2023 12:58
[2023-02-08] MEDS: ENOXAPARIN 30 MG/0.3 ML SYRINGE SQ SCH (14:26)
[2023-02-08 19:25] VITALS: BP 118/61
[2023-02-08] MEDS: clonazePAM 1 MG TABLET PO SCH (19:31)
[2023-02-08] MEDS: dilTIAZem ER 300 MG CAPSULE PO SCH (19:31)
[2023-02-09] MEDS: ALPRAZolam 0.5 MG TABLET PO PRN (01:25)
[2023-02-09] MEDS: inSUlin ASPART 1 UNIT/0.01 ML (PER UNIT) SC SCH ×2 (05:41→12:12)
[2023-02-09] MEDS: FUROSEMIDE 40 MG TABLET PO SCH (06:17)
[2023-02-09 07:27] VITALS: BP 126/67
[2023-02-09] MEDS: LORATADINE 10 MG TABLET PO SCH (08:49)
[2023-02-09] MEDS: carvediloL 12.5 MG TABLET PO SCH (08:49)
[2023-02-09] MEDS: hydrALAZINE 25 MG TABLET PO SCH (08:49)
[2023-02-09] MEDS: inSUlin DETERMIR 1 UNIT/0.01 ML (CHARGE PER UNIT) SQ SCH (08:50)
[2023-02-09] MEDS: SENNOSIDES 8.6 MG TABLET PO SCH (08:50)
[2023-02-09] MEDS: LACTULOSE SYRUP 10GM/15ML 30ML UDC PO SCH (08:50)
[2023-02-09] MEDS: MICONAZOLE 2% POWDER 90 GM TOP SCH (08:50)
[2023-02-09] MEDS: ALLOPURINOL 100 MG TABLET PO SCH (08:50)
[2023-02-09] MEDS: RT-Ipratropium/Albuterol NEB 3 ML VIAL INH SCH (09:49)
--- NOTE | 2023-02-09 10:53 | Therapy Team Discharge Summary ---
Therapy Discharge Summary Discharge Recommendations Date of Discharge Physical Therapy Patient seen by skilled PT to address functional strength and mobility to improve to go home with family. Patient initially requires mod to max assist with mobility. Patient ambulates with FWW 40' and O2 SBA to CGA. Patient con tinues to require SBA to modified independent with all functional mobility and ambulates short distances only. Patient progressed with treatment plan. Goals addressed but not all attained. Roll Left to Right (QC): 6 Sit to Lying (QC): 5 Lying to Sitting/Side of Bed(Q: 5 Sit to Stand (QC): 5 Chair/Exr-kl-Ryvsg Xfer(QC): 5 Toilet Transfer (QC): 3 Car Transfer (QC): 4 (simulated) Does the Patient Walk: Yes Mode of Locomotion: Walk Anticipated Mode of Locomotion: Walk Walk 10 feet (QC): 5 Walk 50 ft with 2 Turns(QC): 7 Walk 150 ft (QC): 88 Walking 10ft on uneven surface: 5 Distance: 40' Gait Assistive Device: FWW Does the Pt Use a Wheelchair: No Wheel 50 ft with 2 turns (QC): 9 Wheel 150 ft (QC): 9 #of Steps: 1 1 Step (curb) (QC): 4 4 Steps (QC): 7 12 Steps (QC): 9 Balance Sitting Static: Fair Balance Sitting Dynamic: Fair Balance-Standing Static: Fair Picking up an Object (QC): 88 Occupational Therapy Decreased Activ Tolerance, Decreased Safety Aware, Decreased UE Strength, Impaired Bed Mobility, Impaired Coordination, Impaired Funct Balance, Impaired Self-Care Skills Eating (QC): 6 Oral Hygiene (QC): 5 Shower/Bathe Self (QC): 3 Upper Body Dressing (QC): 4 Lower Body Dressing (QC): 3 On/Off Footwear (QC): 3 Toileting Hygiene (QC): 4 PT Snf Goals Franchise Sales Manager Goals PT Franchise Sales Manager Goals Time Frame: Feb 17, 2023 Roll Left to Right (QC): 6 Sit to Lying (QC): 6 Lying-Sitting on Side/Bed(QC): 6 Sit to Stand (QC): 6 Chair/Nnw-pu-Cmody Xfer(QC): 6 Toilet/Commode Transfer (QC): 6 Car Transfer (QC): 4 Does the Patient Walk: Yes Walk 10 feet (QC): 6 Walk 10ft-Uneven Surface(QC): 6 Walk 50ft with 2 Turns (QC): 6 Walk 150 ft (QC): 4 Does the Pt use WC or Scooter?: No Wheel 50 feet with 2 turns (QC: 9 Wheel 150 feet: 9 1 Step (curb) (QC): 4 4 Steps (QC): 4 12 Steps (QC): 9 Picking up an Object (QC): 4 OT Franchise Sales Manager Goals Franchise Sales Manager Goals Time Frame: Feb 16, 2023 Acute change in mental status: 0 Inattention: 0 Disorganized thinkin Altered level of consciousness: 0 Eating (QC): 6 Oral Hygiene (QC): 6 Toileting Hygiene (QC): 5 Shower/Bathe Self (QC): 4 Upper Body Dressing (QC): 5 Lower Body Dressing (QC): 4 On/Off Footwear (QC): 4 1=Demonstrate adherence to instructed precautions during ADL tasks. 2=Patient will verbalize/demonstrate understanding of assistive devices/modifications for ADL. 3=Patient will improve strength/tolerance for activity to enable patient to perform ADL's. SHERRI HERMOSILLO PT Feb 09, 2023 10:53
[2023-02-09] MEDS ORDERED: HYDR-3923 PO (12:38)
[2023-02-09] MEDS ORDERED: IPRA3AMP31 INH (12:38)
[2023-02-09] MEDS ORDERED: MICO90PO TOP (12:38)
[2023-02-09] MEDS ORDERED: CARV12.53 PO (12:38)
[2023-02-09] MEDS ORDERED: FURO40TA4 PO (12:38)
[2023-02-09] MEDS ORDERED: OXC5T PO (12:38)
--- NOTE | 2023-02-09 12:41 | D/C HH Face to Face Order ---
D/C HH Face to Face Orders Reconcile Patient Problems Problems Reviewed?: Yes Instructions for Patient HH Patient Instructions/FollowUp: pcp 1 week Physician to follow Patient: chc Discharge Diet for Home: ADA Diet Patient Problems: debility Patient Data-Allergies,Ht & Wt Patient Allergies: Coded Allergies: No Known Drug Allergies (Unverified , 03/20/19) Weight (Pounds): 205 Weight (Ounces): 8.0 Home Health Need/Face to Face Date of Face to Face: Feb 09, 2023 Clinical Findings: Generalized weakness and fatigue, Muscle weakness I have seen Pt [id number]: Yes Discharged To: Home Diagnosis/Conditions: Debility Patient is Homebound due to: Vipin fall risk due to instabilty, Muscle weakness Homebound Status Due to the above stated illness, injury or surgical procedure (medical condition or diagnosis) and associated clinical findings, the patient is homebound because of his/her inability to leave home except with aid of a supportive device and/or person AND leaving the home requires a considerable and taxing effort or is medically contraindicated. Pt req the following assistanc: Walker Home Health Nursing Orders Home Health Services Order: Nursing Services, Salvage Machine Operator-Evaluate & Treat, Physical Therapy-Evaluate & Treat Certify Stmt I certify that this patient is under my care and that I, a nurse practitioner or a physician; a automobile mechanic assistant working with me, had a face to face encounter that - meets the physician face to face encounter requirements with this patient as dated. VICKY CHAVIRA DO Feb 09, 2023 12:41
--- NOTE | 2023-02-09 12:42 | Discharge Summary ---
Discharge Summary Hospital Course Was the Problem List Reviewed?: Yes Problems/Dx: (1) COPD exacerbation Status: Acute (2) Pleural effusion Status: Acute (3) Dyspnea (4) Renal failure (ARF), acute on chronic Status: Acute (5) DVT prophylaxis Status: Acute (6) Acute on chronic diastolic (congestive) heart failure Status: Acute Hospital Course Date of Admission: Feb 01, 2023 at 12:45 Admission Diagnosis : Family Physician/Provider: Alejandra Wooten MD Date of Discharge: 02/09/23 Discharge Diagnosis: [ ] Hospital Course: CC: Dyspnea HPI: This is an 82yo female with pmh of COPD, CHF, and CKD that presented to the ED on 01/25 for shortness of breath x2 days. She is normally on 3L O2 at home but had to increase to 5L. Pt tried albuterol inhaler with minimal relief. Pt denied chest pain, n/v/d, sore throat, runny nose. Pt endorses SOB, wheezing, and worsening chronic cough. Labs ordered in ED included CBC, CMP, UA, ABG, Troponins, BNP, EKG, and CXR. CBC, CMP, and UA were unremarkable except with elevated BUN and Cr consistent with CKD dx. ABG 7.37/62/60. Troponin and BNP mildly elevated at .033 and 391.9, respectively. EKG showed NSR w/o ST elevations. CXR showed right sided pleural effusion that is chronic. Vitals at presentation were HR 86 RR 16 BP 152/96 O2 86% 8L NC Temp 36.2. Treatment in ED included lasix, Duoneb, and Vapotherm. Pt was admitted to ICU for Acute on Chronic hypoxic respiratory failure, COPD Exacerbation, and Acute on Chronic CHF exacerbation. Tx in ICU included cardiology consult, PT/OT Vapotherm, Cefepime 1g q12h (01/27-), Vancomycin 1g qd (01/27-01/29), dexamethasone 4mg qd (02/01- 02/02), and Duoneb and home meds were continued. On 02/01, pt was transferred to swing bed. Duoneb tx and O2 therapy were continued while in swing bed. Pt is discharged on 02/09 to home with daughter and with blank catheter due to urinary retention. Discharge plans include home health and follow up with PCP. LAURENCE WANG Labs and Pending Lab Test: Laboratory Tests 02/08/23 15:55: Glucometer 108 02/08/23 20:40: Glucometer 95 02/09/23 05:41: Glucometer 79 02/09/23 10:36: Glucometer 112H Home Meds Active Lotrimin AF (Miconazole Nitrate) 2 % Powder 0 Gm TOP BID bid Furosemide 40 Mg Tablet 40 Mg PO DAILY@ Oxyir Tablet (Oxycodone HCl) 5 Mg Tab 5 Mg PO Q4HR PRN Carvedilol 12.5 Mg Tablet 12.5 Mg PO BID Hydralazine HCl 25 Mg Tablet 25 Mg PO TID Iprat-Albut 0.5-3(2.5) mg/3 ml (Ipratropium/Albuterol Sulfate) 0.5 Mg-3 Mg (2.5 Mg Base)/3 Ml Ampul.neb 3 Ml INH RTBID Reported Stool Softener (Docusate Sodium) 100 Mg Capsule 100 Mg PO BID PRN Tylenol Extra Strength (Acetaminophen) 500 Mg Tablet 500-1,000 Mg PO Q8H PRN Cetirizine HCl 10 Mg Tablet 10 Mg PO DAILY Ventolin Hfa (Albuterol Sulfate) 90 Mcg Hfa.aer.ad 2 Puff INH Q6H PRN Trelegy Ellipta 100-62.5-25 (Fluticasone/Umeclidin/Vilanter) 100-62.5 Blst.w.dev 1 Puff INH HS Calcitriol 0.25 Mcg Capsule 0.25 Mcg PO Carvedilol 6.25 Mg Tablet 6.25 Mg PO BID Iron (Ferrous Sulfate) 325 Mg (65 Mg Iron) Tablet 325 Mg PO BID Clonazepam 1 Mg Tablet 1 Mg PO HS Diltiazem 24Hr ER (Diltiazem HCl) 300 Mg Cap.er.24h 300 Mg PO HS Allopurinol 100 Mg Tablet 100 Mg PO DAILY Atorvastatin Calcium 80 Mg Tablet 80 Mg PO HS Furosemide 40 Mg Tablet 40 Mg PO DAILY Assessment/Pt Instructions pcp 1 week Discharge Planning: <30 minutes discharge planning Discharge Physical Examination Vital Signs Vital Signs Date Time Temp Pulse Resp B/P (MAP) Pulse Ox O2 Delivery O2 Flow Rate FiO2 02/09/23 09:49 92 Nasal Cannula 4.00 02/09/23 07:27 36.5 71 17 126/67 (86) 02/06/23 21:33 32 General Appearance: No Apparent Distress, WD/WN, Chronically ill Allergies: Coded Allergies: No Known Drug Allergies (Unverified , 03/20/19) Discharge Summary Date of Admission Feb 01, 2023 at 12:45 Date of Discharge Discharge Date: Feb 09, 2023 Discharge Diagnosis DC home tomorrow Poor prognosis Hospice candidate in my opinion VICKY CHAVIRA DO Feb 09, 2023 12:42
[2023-02-09 13:04] VITALS: BP 126/67
--- NOTE | 2023-02-09 14:04 | Progress Note ---
LAURENCE WANG 02/09/23 1404: Progress Note CC: Dyspnea HPI: This is an 82yo female with pmh of COPD, CHF, and CKD that presented to the ED on 01/25 for shortness of breath x2 days. She is normally on 3L O2 at home but had to increase to 5L. Pt tried albuterol inhaler with minimal relief. Pt denied chest pain, n/v/d, sore throat, runny nose. Pt endorses SOB, wheezing, and worsening chronic cough. Labs ordered in ED included CBC, CMP, UA, ABG, Troponins, BNP, EKG, and CXR. CBC, CMP, and UA were unremarkable except with elevated BUN and Cr consistent with CKD dx. ABG 7.37/62/60. Troponin and BNP mildly elevated at .033 and 391.9, respectively. EKG showed NSR w/o ST elevations. CXR showed right sided pleural effusion that is chronic. Vitals at presentation were HR 86 RR 16 BP 152/96 O2 86% 8L NC Temp 36.2. Treatment in ED included lasix, Duoneb, and Vapotherm. Pt was admitted to ICU for Acute on Chronic hypoxic respiratory failure, COPD Exacerbation, and Acute on Chronic CHF exacerbation. Tx in ICU included cardiology consult, PT/OT Vapotherm, Cefepime 1g q12h (01/27-), Vancomycin 1g qd (01/27-01/29), dexamethasone 4mg qd (02/01- 02/02), and Duoneb and home meds were continued. On 02/01, pt was transferred to swing bed. Duoneb tx and O2 therapy were continued while in swing bed. Pt is discharged on 02/09 to home with daughter and with blank catheter due to urinary retention. Discharge plans include home health and follow up with PCP. LEONOR ROSE DO 02/09/237: Supervisory-Addendum Brief Verification & Attestation Participated in pt care: history, MDM, physical Personally performed: exam, history, MDM, supervision of care Care discussed with: Medical Student Procedures: n/a Results interpretation: Verified all documentation Verification and Attestation of Medical Student E/M Service A medical student performed and documented this service in my presence. I reviewed and verified all information documented by the medical student and made modifications to such information, when appropriate. I personally performed the physical exam and medical decision making. Leonor Rose, Feb 09, 2023,21:18 LAURENCE WANG Feb 09, 2023 14:04 LEONOR ROSE DO Feb 09, 2023 21:18
== END 2023-02-09 13:04 | disposition home health service (06) | DRG 280 ==
LOC: 4TH 12:45
PROVIDERS: ADMIT Family Medicine; ATTEND Internal Medicine
PROC: 5A09357 Assistance with Respiratory Ventilation, Less than 24 Consecutive Hours, Continuous Positive Airway Pressure (ICD-10-PCS; principal; 2023-02-01)
PROC: 5A0935A Assistance with Respiratory Ventilation, Less than 24 Consecutive Hours, High Flow/Velocity Cannula (ICD-10-PCS; 2023-02-01)
DX: I13.0 Hypertensive heart and chronic kidney disease with heart failure and stage 1 through stage 4 chronic kidney disease, or unspecified chronic kidney disease (principal); I21.A1 Myocardial infarction type 2; I50.33 Acute on chronic diastolic (congestive) heart failure; J96.21 Acute and chronic respiratory failure with hypoxia; J44.1 Chronic obstructive pulmonary disease with (acute) exacerbation; N18.4 Chronic kidney disease, stage 4 (severe); N17.9 Acute kidney failure, unspecified; F17.200 Nicotine dependence, unspecified, uncomplicated; Z66 Do not resuscitate; E87.5 Hyperkalemia; R73.9 Hyperglycemia, unspecified; T38.0X5A Adverse effect of glucocorticoids and synthetic analogues, initial encounter; I27.20 Pulmonary hypertension, unspecified; R33.9 Retention of urine, unspecified
CPT/HCPCS: 36415; 80048; 80053; 82947; 85007; 85025; 85027; 94640; 94760